=== PATIENT | male | born 1960 | race African-American/Black ===

== ENCOUNTER → 2017-04-04 | Outpatient (CLI) | payer MEDICARE, OTHER ==
--- NOTE | 2017-04-04 13:52 | US ---
EXAMINATION TYPE: US kidneys/renal and bladder DATE OF EXAM: 04/04/2017 COMPARISON: NONE CLINICAL HISTORY: N19 RENAL FAILURE. Renal failure EXAM MEASUREMENTS: Right Kidney: 10.9 x 5.1 x 5.1 cm Left Kidney: 9.8 x 5.0 x 6.2 cm Right Kidney: No evidence of hydro, possible hypoechoic lesion at lower pole= 2.2 x 2.5 x 2.6 cm Left Kidney: No evidence of hydro, smaller in size when compared to right Bladder: wnl Bilateral Jets seen: Only right jet visualized There is no evidence for hydronephrosis at this point in time. No nephrolithiasis is seen. The ur inary bladder is anechoic. IMPRESSION: 1. Hypoechoic lesion lower pole right kidney is nonspecific. Consider CT correlation.
== END | disposition home or self-care (01) ==
LOC: RADUSWWP 13:17
PROVIDERS: ATTEND Family Medicine
DX: N19 Unspecified kidney failure (principal)
CPT/HCPCS: 76770

== ENCOUNTER 2017-05-21 11:49 | Inpatient (IN) | payer MEDICARE, OTHER ==
[2017-05-21] MEDS ORDERED: NITROGLYCERIN OINT 1 INCH/GM PACKET TOPICAL STA (11:56)
[2017-05-21] MEDS ORDERED: IPRATROPIUM-ALBUTEROL 3 ML NEB INHALATION STA (11:56)
[2017-05-21] MEDS ORDERED: SODIUM CHLORIDE 0.9% 1,000 ML IV STA (11:56)
[2017-05-21] MEDS ORDERED: methylPREDNISolone SOD SUCCI 125 MG/2 ML VIAL IV STA (11:56)
[2017-05-21] MEDS ORDERED: FUROSEMIDE 10 MG/ML 4 ML VIAL IV STA (11:56)
--- NOTE | 2017-05-21 12:03 | ED ---
SOB HPI - General Stated Complaint: ANGEL Time Seen by Provider: 05/21/17 11:49 Source: patient, EMS, RN notes reviewed Mode of arrival: EMS - History of Present Illness Initial Comments: This is a 56-year-old male who does still smoke cigarettes he has a history of CHF heart disease diabetes who states she's had source of breath for the past couple days with has really bad today he does say he's had fevers and chills some sweats she's been coughing up some white and blood-tinged sputum. He did document much relief with home updrafts or one given by EMS. He is noted have a pulse ox in the low 80s. Also one episode of hypotension noted 84 systolic blood pressure. He denies any chest pain denies any peripheral edema. He does have exertional dyspnea. MD Complaint: shortness of breath, cough - Related Data Home Medications Medication Instructions Recorded Confirmed Albuterol Inhaler [Ventolin Hfa 2 puff INHALATION RT-Q6H PRN 01/05/16 05/21/17 Inhaler] Bumetanide [BUMEX] 2 mg PO BID 01/05/16 05/21/17 Gabapentin [Neurontin] 300 mg PO DAILY 01/05/16 05/21/17 Insulin Glargine [Lantus] 30 units SQ BID 01/05/16 05/21/17 Simvastatin [Zocor] 40 mg PO HS 01/05/16 05/21/17 amLODIPine [Norvasc] 10 mg PO DAILY 01/05/16 05/21/17 hydrALAZINE HCL [Apresoline] 25 mg PO TID 01/05/16 05/21/17 traZODone HCL [Desyrel] 200 mg PO HS 01/05/16 05/21/17 Allopurinol [Zyloprim] 100 mg PO DAILY 05/21/17 05/21/17 Carvedilol [Coreg*] 12.5 mg PO BID 05/21/17 05/21/17 Escitalopram [Lexapro] 10 mg PO DAILY 05/21/17 05/21/17 QUEtiapine [SEROquel] 200 mg PO HS 05/21/17 05/21/17 cloNIDine HCL [Catapres] 0.2 mg PO TID 05/21/17 05/21/17 Allergies Allergy/AdvReac Type Severity Reaction Status Date / Time Penicillins Allergy Unknown Verified 01/05/16 18:42 Review of Systems ROS Statement: Those systems with pertinent positive or pertinent negative responses have been documented in the HPI. ROS Other: All systems not noted in ROS Statement are negative. Past Medical History Past Medical History: Coronary Artery Disease (CAD), Chest Pain / Angina, COPD, Diabetes Mellitus, Hyperlipidemia, Hypertension History of Any Multi-Drug Resistant Organisms: None Reported Past Surgical History: AICD Past Anesthesia/Blood Transfusion Reactions: No Reported Reaction Type of Cardiac Device: AICD Device Placement Date:: 09/1999 Past Psychological History: Bipolar Smoking Status: Current every day smoker Past Alcohol Use History: None Reported General Exam - General Exam Comments Initial Comments: This a well-developed well-nourished awake alert oriented 3 male General appearance: alert, anxious, in distress Head exam: Present: atraumatic, normocephalic, normal inspection Eye exam: Present: normal appearance, PERRL, EOMI. Absent: scleral icterus, conjunctival injection, periorbital swelling ENT exam: Present: normal exam, mucous membranes moist Neck exam: Present: normal inspection. Absent: tenderness, meningismus, lymphadenopathy Respiratory exam: Present: wheezes, accessory muscle use, decreased breath sounds. Absent: respiratory distress, rales, rhonchi, stridor Cardiovascular Exam: Present: tachycardia. Absent: systolic murmur, diastolic murmur, rubs, gallop, clicks GI/Abdominal exam: Present: soft, normal bowel sounds. Absent: distended, tenderness, guarding, rebound, rigid Extremities exam: Present: normal inspection, full ROM, normal capillary refill. Absent: tenderness, pedal edema, joint swelling, calf tenderness Back exam: Present: normal inspection Neurological exam: Present: alert, oriented X3, CN II-XII intact Psychiatric exam: Present: normal affect, normal mood Skin exam: Present: warm, dry, intact, normal color. Absent: rash Course Vital Signs 05/21/17 05/21/17 05/21/17 12:05 12:09 12:20 Temperature 100.9 F H Pulse Rate 112 H 120 H Respiratory 30 H 26 H Rate Blood Pressure 164/108 O2 Sat by Pulse 91 L Oximetry 05/21/17 05/21/17 05/21/17 12:23 12:53 14:48 Temperature Pulse Rate 116 H 107 H 111 H Respiratory 24 25 H Rate Blood Pressure 168/109 186/100 O2 Sat by Pulse 95 96 Oximetry 05/21/17 05/21/17 15:45 16:03 Temperature Pulse Rate 102 H 102 H Respiratory 26 H 24 Rate Blood Pressure 173/102 173/100 O2 Sat by Pulse 95 93 L Oximetry - Reevaluation(s) Reevaluation #1: 05/21/17 16:07 I did discuss smoking cessation with the patient the conversation lasted 3.1 minutes. We did discuss the benefits of stopping. Reevaluation #2: 05/21/17 16:07 Reevaluation patient reveals he does feel improved with respect to his breathing is having no chest pain. Medical Decision Making - Medical Decision Making I did discuss the findings with the patient and with Dr. Lu the patient be admitted with cardiology and pulmonary consultation. Patient does have a fever and clinical evidence of pneumonitis. - Lab Data Result diagrams: 05/21/17 12:15 05/21/17 12:15 Lab Results 05/21/17 05/21/17 05/21/17 Range/Units 12:15 12:15 12:15 WBC 18.0 H (3.8-10.6) k/uL RBC 6.38 H (4.30-5.90) m/uL Hgb 19.0 H (13.0-17.5) gm/dL Hct 59.3 H (39.0-53.0) % MCV 93.0 (80.0-100.0) fL MCH 29.9 (25.0-35.0) pg MCHC 32.1 (31.0-37.0) g/dL RDW 16.3 H (11.5-15.5) % Plt Count 111 L (150-450) k/uL Neutrophils % 84 % Lymphocytes % 8 % Monocytes % 7 % Eosinophils % 1 % Basophils % 0 % Neutrophils # 15.0 H (1.3-7.7) k/uL Lymphocytes # 1.4 (1.0-4.8) k/uL Monocytes # 1.2 H (0-1.0) k/uL Eosinophils # 0.1 (0-0.7) k/uL Basophils # 0.1 (0-0.2) k/uL Hypochromasia Slight Anisocytosis Slight PT (9.0-12.0) sec INR (<1.2) APTT (22.0-30.0) sec Sodium 139 (137-145) mmol/L Potassium 4.3 (3.5-5.1) mmol/L Chloride 100 (98-107) mmol/L Carbon Dioxide 30 (22-30) mmol/L Anion Gap 9 mmol/L BUN 30 H (9-20) mg/dL Creatinine 1.72 H (0.66-1.25) mg/dL Est GFR (MDRD) Af Amer 50 (>60 ml/min/1.73 sqM) Est GFR (MDRD) Non-Af 41 (>60 ml/min/1.73 sqM) Glucose 252 H (74-99) mg/dL Plasma Lactic Acid Rodney (0.7-2.0) mmol/L Calcium 9.0 (8.4-10.2) mg/dL Magnesium 1.9 (1.6-2.3) mg/dL Total Bilirubin 0.9 (0.2-1.3) mg/dL AST 25 (17-59) U/L ALT 26 (21-72) U/L Alkaline Phosphatase 96 (38-126) U/L Total Creatine Kinase 242 H (55-170) U/L CK-MB (CK-2) 3.1 H* (0.0-2.4) ng/mL CK-MB (CK-2) Rel Index 1.3 Troponin I 0.153 H* (0.000-0.034) ng/mL NT-Pro-B Natriuret Pep pg/mL Total Protein 6.8 (6.3-8.2) g/dL Albumin 3.7 (3.5-5.0) g/dL Urine Color Urine Appearance (Clear) Urine pH (5.0-8.0) Ur Specific [place] (1.001-1.035) Urine Protein (Negative) Urine Glucose (UA) (Negative) Urine Ketones (Negative) Urine Blood (Negative) Urine Nitrite (Negative) Urine Bilirubin (Negative) Urine Urobilinogen (<2.0) mg/dL Ur Leukocyte Esterase (Negative) Urine RBC (0-5) /hpf Urine WBC (0-5) /hpf Ur Squamous Epith Cells (0-4) /hpf Hyaline Casts (0-2) /lpf Urine Mucus (None) /hpf 05/21/17 05/21/17 05/21/17 Range/Units 12:15 12:15 12:15 WBC (3.8-10.6) k/uL RBC (4.30-5.90) m/uL Hgb (13.0-17.5) gm/dL Hct (39.0-53.0) % MCV (80.0-100.0) fL MCH (25.0-35.0) pg MCHC (31.0-37.0) g/dL RDW (11.5-15.5) % Plt Count (150-450) k/uL Neutrophils % % Lymphocytes % % Monocytes % % Eosinophils % % Basophils % % Neutrophils # (1.3-7.7) k/uL Lymphocytes # (1.0-4.8) k/uL Monocytes # (0-1.0) k/uL Eosinophils # (0-0.7) k/uL Basophils # (0-0.2) k/uL Hypochromasia Anisocytosis PT 12.4 H (9.0-12.0) sec INR 1.3 H (<1.2) APTT 26.5 (22.0-30.0) sec Sodium (137-145) mmol/L Potassium (3.5-5.1) mmol/L Chloride (98-107) mmol/L Carbon Dioxide (22-30) mmol/L Anion Gap mmol/L BUN (9-20) mg/dL Creatinine (0.66-1.25) mg/dL Est GFR (MDRD) Af Amer (>60 ml/min/1.73 sqM) Est GFR (MDRD) Non-Af (>60 ml/min/1.73 sqM) Glucose (74-99) mg/dL Plasma Lactic Acid Rodney 2.0 (0.7-2.0) mmol/L Calcium (8.4-10.2) mg/dL Magnesium (1.6-2.3) mg/dL Total Bilirubin (0.2-1.3) mg/dL AST (17-59) U/L ALT (21-72) U/L Alkaline Phosphatase (38-126) U/L Total Creatine Kinase (55-170) U/L CK-MB (CK-2) (0.0-2.4) ng/mL CK-MB (CK-2) Rel Index Troponin I (0.000-0.034) ng/mL NT-Pro-B Natriuret Pep 5150 pg/mL Total Protein (6.3-8.2) g/dL Albumin (3.5-5.0) g/dL Urine Color Urine Appearance (Clear) Urine pH (5.0-8.0) Ur Specific [place] (1.001-1.035) Urine Protein (Negative) Urine Glucose (UA) (Negative) Urine Ketones (Negative) Urine Blood (Negative) Urine Nitrite (Negative) Urine Bilirubin (Negative) Urine Urobilinogen (<2.0) mg/dL Ur Leukocyte Esterase (Negative) Urine RBC (0-5) /hpf Urine WBC (0-5) /hpf Ur Squamous Epith Cells (0-4) /hpf Hyaline Casts (0-2) /lpf Urine Mucus (None) /hpf 05/21/17 Range/Units 13:50 WBC (3.8-10.6) k/uL RBC (4.30-5.90) m/uL Hgb (13.0-17.5) gm/dL Hct (39.0-53.0) % MCV (80.0-100.0) fL MCH (25.0-35.0) pg MCHC (31.0-37.0) g/dL RDW (11.5-15.5) % Plt Count (150-450) k/uL Neutrophils % % Lymphocytes % % Monocytes % % Eosinophils % % Basophils % % Neutrophils # (1.3-7.7) k/uL Lymphocytes # (1.0-4.8) k/uL Monocytes # (0-1.0) k/uL Eosinophils # (0-0.7) k/uL Basophils # (0-0.2) k/uL Hypochromasia Anisocytosis PT (9.0-12.0) sec INR (<1.2) APTT (22.0-30.0) sec Sodium (137-145) mmol/L Potassium (3.5-5.1) mmol/L Chloride (98-107) mmol/L Carbon Dioxide (22-30) mmol/L Anion Gap mmol/L BUN (9-20) mg/dL Creatinine (0.66-1.25) mg/dL Est GFR (MDRD) Af Amer (>60 ml/min/1.73 sqM) Est GFR (MDRD) Non-Af (>60 ml/min/1.73 sqM) Glucose (74-99) mg/dL Plasma Lactic Acid Rodney (0.7-2.0) mmol/L Calcium (8.4-10.2) mg/dL Magnesium (1.6-2.3) mg/dL Total Bilirubin (0.2-1.3) mg/dL AST (17-59) U/L ALT (21-72) U/L Alkaline Phosphatase (38-126) U/L Total Creatine Kinase (55-170) U/L CK-MB (CK-2) (0.0-2.4) ng/mL CK-MB (CK-2) Rel Index Troponin I (0.000-0.034) ng/mL NT-Pro-B Natriuret Pep pg/mL Total Protein (6.3-8.2) g/dL Albumin (3.5-5.0) g/dL Urine Color Yellow Urine Appearance Clear (Clear) Urine pH 5.5 (5.0-8.0) Ur Specific [place] 1.013 (1.001-1.035) Urine Protein 2+ H (Negative) Urine Glucose (UA) Negative (Negative) Urine Ketones Negative (Negative) Urine Blood Small H (Negative) Urine Nitrite Negative (Negative) Urine Bilirubin Negative (Negative) Urine Urobilinogen 3.0 (<2.0) mg/dL Ur Leukocyte Esterase Negative (Negative) Urine RBC 1 (0-5) /hpf Urine WBC 1 (0-5) /hpf Ur Squamous Epith Cells <1 (0-4) /hpf Hyaline Casts 7 H (0-2) /lpf Urine Mucus Rare H (None) /hpf - EKG Data -: EKG Interpreted by Me (EKG shows sinus tachycardia of 116. Interval 150 to QRS 122 QT/QTC of 354/) - Radiology Data Radiology results: report reviewed (I did review the imaging and report is evidence of mild pulmonary vascular congestion trace pleural effusions some cardiomegaly.), image reviewed Critical Care Time Critical Care Time: Yes Critical Care Time: 3 exam is a critical care time which includes initial presentation with monitoring of the EMS run and discussed with paramedics history physical labs x- rays reevaluation patient on multiple occasions. Discussion with the patient regarding findings discussed with the admitting service admission orders and documentation of the above. Disposition Clinical Impression: Congestive heart failure (CHF), Pneumonitis, Renal insufficiency syndrome, Febrile illness, acute, COPD exacerbation Disposition: ADMITTED IP TO THIS [facility] Condition: Serious Referrals: Jayson Lu MD [Primary Care Provider] - 1-2 days
[2017-05-21 12:48] LABS: Magnesium 1.9 mg/dL (1.6-2.3); Potassium 4.3 mmol/L (3.5-5.1); Total Bilirubin 0.9 mg/dL (0.2-1.3); Total Protein 6.8 g/dL (6.3-8.2)
[2017-05-21 12:49] LABS: Anisocytosis Slight; Basophils # (A) 0.1 k/uL (0-0.2); Basophils % (A) 0 %; CH 28.9; CHCM 31.3; Eosinophils # (A) 0.1 k/uL (0-0.7); Eosinophils % (A) 1 %; HCT 59.3 % (39.0-53.0); HDW 2.71; Hypochromasia Slight; Large Platelets Flag Slight; Luc # (Auto) 0.25; Luc % (Auto) 1; Lymphocytes # (A) 1.4 k/uL (1.0-4.8); Lymphocytes % (A) 8 %; MCH 29.9 pg (25.0-35.0); MCHC 32.1 g/dL (31.0-37.0); Mean Platelet Volume 10.2; Monocytes # (A) 1.2 k/uL (0-1.0); Monocytes % (A) 7 %; Neutrophils % (A) 84 %; RBC 6.38 m/uL (4.30-5.90); RDW 16.3 % (11.5-15.5); WBC (Perox) 18.69
[2017-05-21 13:28] LABS: Creatine Kinase MB 3.1 ng/mL (0.0-2.4)
[2017-05-21 13:29] LABS: Troponin I 0.153 ng/mL (0.000-0.034)
--- NOTE | 2017-05-21 13:32 | XR ---
EXAMINATION TYPE: XR chest 2V DATE OF EXAM: 05/21/2017 COMPARISON: NONE HISTORY: Difficulty breathing. History of COPD. TECHNIQUE: Frontal and lateral views of the chest are obtained. FINDINGS: Similar to the prior exam there is mild pulmonary vascular congestion, accentuated on the right by rotation. Trace pleural effusions blunt the costophrenic angles. Cardiomegaly and multilead left-sided cardiac device are again seen. No pneumothorax. Osseous structures appear intact. IMPRESSION: Mild pulmonary vascular congestion and trace pleural effusions in combination with cardi omegaly most likely relate to underlying decompensated congestive heart failure.
[2017-05-21 14:04] LABS: Partial Thromboplastin Time 26.5 sec (22.0-30.0)
[2017-05-21 14:09] LABS: INR 1.3 (<1.2); Prothrombin Time 12.4 sec (9.0-12.0)
[2017-05-21 14:15] LABS: Appearance,Urine Clear (Clear); Bilirubin,Urine Negative (Negative); Glucose,Urine (UA) Negative (Negative); Ketones,Urine Negative (Negative); Leukocyte Esterase,Urine Negative (Negative); Mucus,Urine Rare /hpf; Nitrite,Urine Negative (Negative); PH, Urine 5.5 (5.0-8.0); Particle Count 3887; Protein,Urine 2+ (Negative); RBC,Urine 1 /hpf (0-5); Specific Gravity,Urine 1.013 (1.001-1.035); Squamous Epithelial Cell,Urine <1 /hpf (0-4); UA Billing (MACRO vs. MICRO) MICRO; WBC,Urine 1 /hpf (0-5)
[2017-05-21] MEDS ORDERED: FUROSEMIDE 10 MG/ML 4 ML VIAL IV SCH (16:15)
[2017-05-21] MEDS ORDERED: HEPARIN SODIUM,PORCINE 5,000 UNIT/ML 1 ML VIAL IV ONE (16:19)
[2017-05-21] MEDS: SODIUM CHLORIDE 0.9% 1,000 ML IV SCH (17:02)
[2017-05-21] MEDS: HEPARIN SODIUM,PORCINE/D5W PMX 25,000 UNIT in DEXTROSE/WATER 1 500ML.BAG IV SCH (17:06)
[2017-05-21] MEDS: ACETAMINOPHEN TAB 500 MG TAB PO PRN (18:03)
[2017-05-21] MEDS ORDERED: IPRATROPIUM-ALBUTEROL 3 ML NEB INHALATION SCH (20:00)
[2017-05-21] MEDS: INSULIN LISPRO (humaLOG) 300 UNIT/3 ML VIAL SQ SCH ×2 (20:35→20:56)
[2017-05-21] MEDS: FUROSEMIDE 10 MG/ML 4 ML VIAL IV SCH (20:37)
[2017-05-21] MEDS: CARVEDILOL 12.5 MG TAB PO SCH (20:37)
[2017-05-21] MEDS: traZODone HCL 100 MG TAB PO SCH (20:38)
[2017-05-21] MEDS: ATORVASTATIN 20 MG TAB PO SCH (20:38)
[2017-05-21] MEDS: QUEtiapine 200 MG TAB PO SCH (20:38)
[2017-05-21 20:45] LABS: Glucose,Whole Blood 256 mg/dL (75-99)
[2017-05-21] MEDS: NITROGLYCERIN OINT 1 INCH/GM PACKET TOPICAL SCH ×2 (20:46→22:58)
[2017-05-21] MEDS ORDERED: NON-FORMULARY DRUG (Bumetanide [Bumex] 2 MG) PO SCH (21:00)
[2017-05-21] MEDS: INSULIN GLARGINE 100 UNIT/ML 10 ML VIAL SQ SCH (21:01)
[2017-05-21] MEDS ORDERED: IPRATROPIUM-ALBUTEROL 3 ML NEB INHALATION PRN (22:41)
[2017-05-21] MEDS: cloNIDine HCL 0.2 MG TAB PO SCH (22:57)
[2017-05-21] MEDS: hydrALAZINE HCL 25 MG TAB PO SCH (22:58)
[2017-05-22] MEDS: FUROSEMIDE 10 MG/ML 4 ML VIAL IV SCH ×3 (03:36→21:12)
[2017-05-22] MEDS: CARVEDILOL 12.5 MG TAB PO SCH ×2 (06:43→17:52)
[2017-05-22] MEDS: INSULIN LISPRO (humaLOG) 300 UNIT/3 ML VIAL SQ SCH ×4 (06:43→21:13)
[2017-05-22 06:51] LABS: Glucose,Whole Blood 178 mg/dL (75-99)
[2017-05-22 08:57] LABS: Hemoglobin A1C 7.5 % (4.2-6.1)
[2017-05-22] MEDS: IPRATROPIUM-ALBUTEROL 3 ML NEB INHALATION SCH ×4 (09:05→20:41)
[2017-05-22] MEDS: ALLOPURINOL 100 MG TAB PO SCH (09:47)
[2017-05-22] MEDS: cloNIDine HCL 0.2 MG TAB PO SCH ×3 (09:47→22:24)
[2017-05-22] MEDS: amLODIPine 10 MG TAB PO SCH (09:47)
[2017-05-22] MEDS: GABAPENTIN 300 MG CAP PO SCH (09:48)
[2017-05-22] MEDS: ESCITALOPRAM 10 MG TAB PO SCH (09:48)
[2017-05-22] MEDS: NITROGLYCERIN OINT 1 INCH/GM PACKET TOPICAL SCH ×4 (09:49→22:25)
[2017-05-22] MEDS: hydrALAZINE HCL 25 MG TAB PO SCH ×3 (09:49→22:23)
[2017-05-22] MEDS: ASPIRIN 325 MG TAB PO SCH (09:49)
[2017-05-22] MEDS: INSULIN GLARGINE 100 UNIT/ML 10 ML VIAL SQ SCH ×2 (09:57→21:13)
--- NOTE | 2017-05-22 10:53 | P.CRDCN ---
History of Present Illness Consult date: 05/22/17 Consult reason: congestive heart failure History of present illness: 56-year-old gentleman with history of cardiomyopathy with congestive heart failure status post AICD hypertension is to anemia was admitted to hospital with shortness of breath. Shortness of breath seems to be due to a combination of COPD exacerbation and acute exacerbation of chronic systolic heart failure. At the time of my evaluation this morning he is sleeping shortness of breath has improved has Review of Systems Constitutional: Denies chills. Denies fever. Eyes: Denies blurred vision. Denies pain. Ears, nose, mouth and throat: Denies headache. Denies sore throat. Cardiovascular: Denies chest pain. has shortness of breath. Respiratory: Denies cough. Gastrointestinal: Denies abdominal pain. Denies diarrhea. Denies nausea. Denies vomiting. Musculoskeletal: Denies myalgias.joint pains Integumentary: Denies pruritus. Denies rash. Neurological: Denies numbness. Denies weakness. Psychiatric: Denies anxiety. Denies depression. Endocrine: Denies fatigue. Denies weight change. Genitourinary: Denies burning, hematuria, frequency of urination. Hematological: No anemia or excess bleeding. Past Medical History Past Medical History: Coronary Artery Disease (CAD), Chest Pain / Angina, Heart Failure, COPD, Diabetes Mellitus, Hyperlipidemia, Hypertension, Myocardial Infarction ([place]), Sleep Apnea/CPAP/BIPAP Additional Past Medical History / Comment(s): MURMUR, "HEART SKIPS A BEAT", PAST ACID REFLUX, NEUROPATHY, BIPOLAR, Last Myocardial Infarction Date:: 2004 History of Any Multi-Drug Resistant Organisms: None Reported Past Surgical History: AICD, Heart Catheterization With Stent Past Anesthesia/Blood Transfusion Reactions: No Reported Reaction Date of Last Stent Placement:: 2004 Type of Cardiac Device: AICD Device Placement Date:: 09/2004 Smoking Status: Current every day smoker - Past Family History Father Family Medical History: Cancer Mother Family Medical History: Cancer Medications and Allergies Home Medications Medication Instructions Recorded Confirmed Type Albuterol Inhaler [Ventolin Hfa 2 puff INHALATION RT-Q6H PRN 01/05/16 05/21/17 History Inhaler] Bumetanide [BUMEX] 2 mg PO BID 01/05/16 05/21/17 History Gabapentin [Neurontin] 300 mg PO DAILY 01/05/16 05/21/17 History Insulin Glargine [Lantus] 30 units SQ BID 01/05/16 05/21/17 History Simvastatin [Zocor] 40 mg PO HS 01/05/16 05/21/17 History amLODIPine [Norvasc] 10 mg PO DAILY 01/05/16 05/21/17 History hydrALAZINE HCL [Apresoline] 25 mg PO TID 01/05/16 05/21/17 History traZODone HCL [Desyrel] 200 mg PO HS 01/05/16 05/21/17 History Allopurinol [Zyloprim] 100 mg PO DAILY 05/21/17 05/21/17 History Carvedilol [Coreg*] 12.5 mg PO BID 05/21/17 05/21/17 History Escitalopram [Lexapro] 10 mg PO DAILY 05/21/17 05/21/17 History QUEtiapine [SEROquel] 200 mg PO HS 05/21/17 05/21/17 History cloNIDine HCL [Catapres] 0.2 mg PO TID 05/21/17 05/21/17 History Allergies Allergy/AdvReac Type Severity Reaction Status Date / Time Penicillins Allergy Unknown Verified 01/05/16 18:42 Physical Exam Vitals: Vital Signs Temp Pulse Pulse Resp BP BP Pulse Ox 05/22/17 09:17 85 16 05/22/17 09:05 85 16 97 05/22/17 04:00 97.2 F L 87 22 144/95 94 L 05/22/17 00:00 97.0 F L 80 24 133/90 94 L 05/21/17 20:46 100 05/21/17 20:00 97.5 F L 95 24 161/100 94 L 05/21/17 18:25 99.9 F H 102 H 28 H 187/113 90 L 05/21/17 17:58 101.3 F H 100 22 180/95 95 05/21/17 17:06 93 22 177/89 96 05/21/17 16:03 102 H 24 173/100 93 L 05/21/17 15:45 102 H 26 H 173/102 95 05/21/17 14:48 111 H 25 H 186/100 96 05/21/17 12:53 107 H 24 168/109 95 05/21/17 12:23 116 H 05/21/17 12:20 26 H 05/21/17 12:09 100.9 F H 120 H 30 H 164/108 91 L 05/21/17 12:05 112 H Intake and Output 05/21/17 05/22/17 05/22/17 22:59 06:59 14:59 Intake Total 624.365 Output Total 500 400 Balance 124.365 -400 Intake: IV 160 Heparin Sodium,Porcine/ 160 D5w Pmx 25,000 unit In Dextrose/Water 1 500ml. bag @ 7.37 UNITS/KG/HR 19 .98 mls/hr IV .Q24H GARIMA Rx#:[id number] Intake, IV Titration 464.365 Amount Heparin Sodium,Porcine/ 304.365 D5w Pmx 25,000 unit In Dextrose/Water 1 500ml. bag @ 7.37 UNITS/KG/HR 19 .98 mls/hr IV .Q24H GARIMA Rx#:[id number] Sodium Chloride 0.9% 1, 160 000 ml @ 20 mls/hr IV . Q24H GARIMA Rx#:[id number] Output: Urine 500 400 Other: Voiding Method Urinal Urinal # Voids 0 0 Weight 135.1 kg General: The patient is awake and alert, in no distress, and does not appear acutely ill. Skin: Skin is warm and dry and no rashes or lesions are noted. Eye: Pupils are equal, round and reactive to light, extra-ocular movements are intact; there is normal conjunctiva bilaterally. Ears, nose, mouth and throat: There are moist mucous membranes and no oral lesions. Neck: The neck is supple, there is no tenderness or JVD. Cardiovascular: There is a regular rate and rhythm. No murmur, rub or gallop is appreciated. Respiratory: Lungs are clear to auscultation, respirations are non-labored, breath sounds are equal. Gastrointestinal: Soft, non-distended, non-tender abdomen without masses or organomegaly noted. There is no rebound or guarding present. Bowel sounds are unremarkable. Back: There is no tenderness to palpation in the midline. There is no obvious deformity. Musculoskeletal: Normal ROM, no tenderness, There is no pedal edema. There is no calf tenderness or swelling. Extremities: 1+ edema Vascular: Femoral pulse is normal. Posterior tibial pulses are normal .Dorsalis pedis is palpable. Neurological: CN II-XII intact. There are no obvious motor or sensory deficits. Speech is normal. Psychiatric: Cooperative, appropriate mood & affect, normal judgment. Results 05/21/17 12:15 05/21/17 12:15 Cardiac Enzymes 05/21/17 05/21/17 Range/Units 12:15 12:15 AST 25 (17-59) U/L CK-MB (CK-2) 3.1 H* (0.0-2.4) ng/mL Troponin I 0.153 H* (0.000-0.034) ng/mL Coagulation 05/21/17 05/21/17 05/22/17 Range/Units 12:15 22:40 04:58 PT 12.4 H (9.0-12.0) sec APTT 26.5 26.0 31.5 H (22.0-30.0) sec CBC 05/21/17 Range/Units 12:15 WBC 18.0 H (3.8-10.6) k/uL RBC 6.38 H (4.30-5.90) m/uL Hgb 19.0 H (13.0-17.5) gm/dL Hct 59.3 H (39.0-53.0) % Plt Count 111 L (150-450) k/uL Comprehensive Metabolic Panel 05/21/17 Range/Units 12:15 Sodium 139 (137-145) mmol/L Potassium 4.3 (3.5-5.1) mmol/L Chloride 100 (98-107) mmol/L Carbon Dioxide 30 (22-30) mmol/L BUN 30 H (9-20) mg/dL Creatinine 1.72 H (0.66-1.25) mg/dL Glucose 252 H (74-99) mg/dL Calcium 9.0 (8.4-10.2) mg/dL AST 25 (17-59) U/L ALT 26 (21-72) U/L Alkaline Phosphatase 96 (38-126) U/L Total Protein 6.8 (6.3-8.2) g/dL Albumin 3.7 (3.5-5.0) g/dL Current Medications Generic Name Dose Route Start Last Admin Trade Name Freq PRN Reason Stop Dose Admin Acetaminophen 1,000 mg 05/21/17 17:57 05/21/17 18:03 Tylenol Tab PO 1,000 mg Q6HR PRN Administration Fever and/ or Pain Albuterol/Ipratropium 3 ml 05/22/17 08:00 05/22/17 09:05 Duoneb 0.5 Mg-3 Mg/3 Ml Soln INHALATION 3 ml RT-QID GARIMA Administration Albuterol/Ipratropium 3 ml 05/21/17 22:41 Duoneb 0.5 Mg-3 Mg/3 Ml Soln INHALATION RT-Q2H PRN Shortness Of Breath Or Wheezing Allopurinol 100 mg 05/22/17 09:00 05/22/17 09:47 Zyloprim PO 100 mg DAILY GARIMA Administration Amlodipine Besylate 10 mg 05/22/17 09:00 05/22/17 09:47 Norvasc PO 10 mg DAILY GARIMA Administration Aspirin 325 mg 05/22/17 12:00 05/22/17 09:49 Aspirin PO 325 mg DAILY GARIMA Administration Atorvastatin Calcium 20 mg 05/21/17 21:00 05/21/17 20:38 Lipitor PO 20 mg HS GARIMA Administration Carvedilol 12.5 mg 05/21/17 18:00 05/22/17 06:43 Coreg PO 12.5 mg BID-W/MEALS GARIMA Administration Clonidine 0.2 mg 05/21/17 22:00 05/22/17 09:47 Catapres PO 0.2 mg TID GARIMA Administration Escitalopram Oxalate 10 mg 05/22/17 09:00 05/22/17 09:48 Lexapro PO 10 mg DAILY GARIMA Administration Furosemide 40 mg 05/21/17 20:00 05/22/17 03:36 Lasix IV 40 mg Q8H GARIMA Administration Gabapentin 300 mg 05/22/17 09:00 05/22/17 09:48 Neurontin PO 300 mg DAILY GARIMA Administration Hydralazine HCl 25 mg 05/21/17 22:00 05/22/17 09:49 Apresoline PO 25 mg TID GARIMA Administration Sodium Chloride 1,000 mls @ 20 mls/hr 05/21/17 11:56 05/21/17 12:53 Saline 0.9% IV 05/22/17 11:55 20 mls/hr .Q24H STA Administration Heparin Sodium/Dextrose 25,000 500 mls @ 19.98 mls/hr 05/21/17 16:30 06:06 unit/ IV Solution IV 13 units/kg/hr .Q24H GARIMA 35.25 mls/hr Protocol Titration 7.37 UNITS/KG/HR Sodium Chloride 1,000 mls @ 20 mls/hr 05/21/17 16:15 05/21/17 17:02 Saline 0.9% IV Not Given .Q24H GARIMA Insulin Glargine 30 unit 05/21/17 21:00 05/22/17 09:57 Lantus SQ 30 unit BID GARIMA Administration Insulin Human Lispro 0 unit 05/21/17 17:30 05/22/17 06:43 Humalog SQ 3 unit ACHS GARIMA Administration Protocol Nitroglycerin 1 inch 05/21/17 18:00 05/22/17 09:49 Nitro-Bid Oint TOPICAL 1 inch QID GARIMA Administration Quetiapine Fumarate 200 mg 05/21/17 21:00 05/21/17 20:38 Seroquel PO 200 mg HS GARIMA Administration Trazodone HCl 200 mg 05/21/17 21:00 05/21/17 20:38 Desyrel PO 200 mg HS GARIMA Administration Intake and Output 05/21/17 05/22/17 05/22/17 22:59 06:59 14:59 Intake Total 624.365 Output Total 500 400 Balance 124.365 -400 Intake: IV 160 Heparin Sodium,Porcine/ 160 D5w Pmx 25,000 unit In Dextrose/Water 1 500ml. bag @ 7.37 UNITS/KG/HR 19 .98 mls/hr IV .Q24H GARIMA Rx#:[id number] Intake, IV Titration 464.365 Amount Heparin Sodium,Porcine/ 304.365 D5w Pmx 25,000 unit In Dextrose/Water 1 500ml. bag @ 7.37 UNITS/KG/HR 19 .98 mls/hr IV .Q24H GARIMA Rx#:[id number] Sodium Chloride 0.9% 1, 160 000 ml @ 20 mls/hr IV . Q24H GARIMA Rx#:[id number] Output: Urine 500 400 Other: Voiding Method Urinal Urinal # Voids 0 0 Weight 135.1 kg 05/21/17 12:15 05/21/17 12:15 EKG Interpretations (text) Sinus tachycardia with changes of left ventricular hypertrophy Assessment and Plan Plan: Acute exacerbation of chronic systolic heart failure History of AICD History of coronary artery disease Patient is on IV Lasix which I'm going to continue. I will obtain a 2-D echo to document her LV function. BNP is elevated
[2017-05-22] MEDS: HEPARIN SODIUM,PORCINE/D5W PMX 25,000 UNIT in DEXTROSE/WATER 1 500ML.BAG IV SCH ×2 (12:43→23:26)
--- NOTE | 2017-05-22 14:19 | ECHOF ---
Referral Reason:chf MEASUREMENTS -------- HEIGHT: 188.0 cm WEIGHT: 134.7 kg BP: 144/95 RVIDd: 3.7 cm (< 3.3) IVSd: 1.7 cm (0.6 - 1.1) LVIDd: 6.1 cm (3.9 - 5.3) LVPWd: 1.8 cm (0.6 - 1.1) IVSs: 2.3 cm LVIDs: 3.4 cm LVPWs: 2.4 cm LA Diam: 5.3 cm (2.7 - 3.8) LAESV Index (A-L): 28.53 ml/m Ao Diam: 3.3 cm (2.0 - 3.7) AV Cusp: 2.7 cm (1.5 - 2.6) MV EXCURSION: 23.080 mm (> 18.000) MV EF SLOPE: 67 mm/s (70 - 150) EPSS: 1.3 cm MV E Rogers: 0.55 m/s MV DecT: 345 ms MV A Rogers: 0.77 m/s MV E/A Ratio: 0.72 RAP: 5.00 mmHg RVSP: 47.47 mmHg FINDINGS -------- Sinus rhythm. This was a technically difficult study with suboptimal apical views. The left ventricle is mildly dilated. There is severe concentric left ventricular hypertrophy. Overall left ventricular systolic function is normal with, an EF between 55 - 60 %. The right ventricle is mildly enlarged. The left atrium is markedly dilated. The right atrium is normal in size. 1.5mg of Definity was utilized for enhancement of images There is mild aortic valve sclerosis. Mild mitral annular calcification present. Mild tricuspid regurgitation present. There is mild pulmonary hypertension. Trace/mild (physiologic) pulmonic regurgitation. The aortic root size is normal. The inferior vena cava is mildly dilated. There is no pericardial effusion. CONCLUSIONS -------- 1. Sinus rhythm. 2. There is mild aortic valve sclerosis. 3. Mild mitral annular calcification present. 4. Mild tricuspid regurgitation present. 5. There is mild pulmonary hypertension. 6. Trace/mild (physiologic) pulmonic regurgitation. 7. The aortic root size is normal. 8. The inferior vena cava is mildly dilated. 9. There is no pericardial effusion. 10. This was a technically difficult study with suboptimal apical views. 11. The left ventricle is mildly dilated. 12. There is severe concentric left ventricular hypertrophy. 13. Overall left ventricular systolic function is normal with, an EF between 55 - 60 %. 14. The right ventricle is mildly enlarged. 15. The left atrium is markedly dilated. 16. The right atrium is normal in size. 17. 1.5mg of Definity was utilized for enhancement of images FINISH OFF OPERATOR: Melissa Wright RDCS
[2017-05-22 15:54] LABS: Glucose,Whole Blood 134 mg/dL (75-99)
[2017-05-22 17:08] LABS: Glucose,Whole Blood 131 mg/dL (75-99)
[2017-05-22] MEDS: SODIUM CHLORIDE 0.9% 1,000 ML IV SCH (17:52)
--- NOTE | 2017-05-22 21:09 | CONS ---
CONSULTATION DATE OF SERVICE: 05/22/2017. REASON FOR CONSULTATION: Dyspnea. This is a very pleasant 56-year-old gentleman who follows with Dr. Lu as his primary care physician. He has a history of coronary artery disease, severe ischemic cardiomyopathy with an estimated ejection fraction less than 20%, angina, diabetes mellitus, hyperlipidemia, hypertension and chronic and ongoing tobacco dependence. He also is status post AICD placement. He presented to the emergency room yesterday with complaints of increasing shortness of breath, cough and congestion. His cough was productive of white blood-tinged sputum. He was given updrafts in the EMS and did have a pulse ox in the low 80s. He was also hypotensive in the 80s systolically. His chest x-ray revealed evidence of mild pulmonary vascular congestion and trace pleural effusions along with cardiomegaly; no areas of infiltrate or consolidation. White count was 18.0, hemoglobin 19.0, platelet count 111,000, BUN 30, creatinine 1.72, troponin 0.153, proBNP 5150. The patient is seen today in consultation in the selective care unit. He is awake and alert, in no acute distress. He denies any worsening shortness of breath. He has a loose nonproductive cough. No chills or night sweats. He has been afebrile. He is requiring 8 liters of high-flow nasal cannula to maintain oxygen saturations in the 90s. He has been hemodynamically stable. PAST MEDICAL HISTORY: Past medical history includes: 1. Coronary artery disease. 2. Severe ischemic cardiomyopathy with estimated ejection fraction less than 20%. 3. Status post AICD placement. 4. Chronic obstructive pulmonary disease. 5. Chronic and ongoing tobacco dependence. 6. Diabetes mellitus. 7. Hypertension. 8. Hyperlipidemia. SURGICAL HISTORY: AICD. SOCIAL HISTORY: The patient has chronic and ongoing tobacco dependence. Denies alcohol use or illicit drug use. ALLERGIES: PENICILLIN. HOME MEDICATIONS: 1. Ventolin HFA inhaler 2 inhalations q.6 hours p.r.n. 2. Bumex 2 mg b.i.d. 3. Neurontin 300 mg daily. 4. Lantus 30 units subcutaneously b.i.d. 5. Zocor 40 mg at bedtime. 6. Norvasc 10 mg daily. 7. Apresoline 25 mg t.i.d. 8. Desyrel 200 mg at bedtime. 9. Zyloprim 100 mg daily. 10.Coreg 12.5 mg b.i.d. 11.Lexapro 10 mg daily. 12.Seroquel 200 mg at bedtime. 13.Catapres 0.2 mg p.o. t.i.d. REVIEW OF SYSTEMS: Fourteen-point review of system was conducted; all negative other than mentioned in the HPI. PHYSICAL EXAM: He is morbidly obese. Alert and oriented. VITAL SIGNS: Blood pressure 154/100, heart rate 105, respirations 18, temperature 97.0. He is 90% oxygen saturation on 6 L high-flow nasal cannula. HEAD: Normocephalic. There is crowding of the posterior pharynx. NECK: Short, supple. Trachea midline. His lungs are clear anteriorly. There are crackles in the posterior bases, diminished. HEART: Regular. S1, S2, tachycardic. ABDOMEN: Obese soft, nontender. Bowel sounds are present. There is trace peripheral edema. No clubbing. Peripheral pulses are intact. INVESTIGATIONS: Chest x-ray as above. Lab results reveal white count 18.0, hemoglobin 19.0, platelet count 111,000. INR 1.3. Sodium 139, potassium 4.3, chloride 100, CO2 30. BUN 30, creatinine 1.72. CK-MB 3.1. Troponin 0.153. ProBNP 5150. His medications are reviewed. IMPRESSION: 1. Acute exacerbation of chronic systolic congestive heart failure in a patient with a known ejection fraction less than 20%. 2. Cardiomyopathy, status post AICD placement. 3. Chronic and ongoing tobacco dependence with suspected chronic obstructive pulmonary disease. 4. Morbid obesity with some component of obesity/hypoventilation syndrome. 5. Diabetes mellitus, type 2. 6. Hyperlipidemia. 7. Hypertension. 8. Bipolar disorder. PLAN: The patient was seen and evaluated by Dr. Vital. Chest x-ray report and labs were reviewed. We will go ahead and treat him for acute exacerbation of his congestive heart failure. He is on Lasix 40 mg IV q.8 hours. We will continue with bronchodilators. He remains on a heparin drip for now. Cardiology has been consulted. He would benefit from outpatient workup in our office, including full pulmonary function testing to evaluate the severity of his COPD. He may also benefit from a sleep study. In the interim, we will continue to follow and make further recommendations based on his clinical status. Of note, he is educated regarding the importance of complete smoking cessation. A Nicoderm patch will be applied. MMLOREL / IJN: [id number] /
[2017-05-22] MEDS: QUEtiapine 200 MG TAB PO SCH (21:13)
[2017-05-22] MEDS: traZODone HCL 100 MG TAB PO SCH (21:13)
[2017-05-22] MEDS: ATORVASTATIN 20 MG TAB PO SCH (21:13)
[2017-05-22 21:20] LABS: Glucose,Whole Blood 120 mg/dL (75-99)
[2017-05-23] MEDS: FUROSEMIDE 10 MG/ML 4 ML VIAL IV SCH ×3 (04:26→19:54)
[2017-05-23 06:31] LABS: Glucose,Whole Blood 114 mg/dL (75-99)
[2017-05-23 06:34] LABS: Partial Thromboplastin Time 64.7 sec (22.0-30.0)
[2017-05-23] MEDS: INSULIN LISPRO (humaLOG) 300 UNIT/3 ML VIAL SQ SCH ×5 (06:36→21:19)
[2017-05-23 06:37] LABS: Anisocytosis Slight; Basophils # (A) 0.1 k/uL (0-0.2); Basophils % (A) 1 %; CH 28.3; CHCM 29.8; Calcium 8.5 mg/dL (8.4-10.2); Eosinophils # (A) 0.1 k/uL (0-0.7); Eosinophils % (A) 1 %; HCT 56.3 % (39.0-53.0); HDW 2.68; HGB 17.3 gm/dL (13.0-17.5); Hypochromasia Marked; Large Platelets Flag Slight; Luc # (Auto) 0.32; Luc % (Auto) 3; Lymphocytes % (A) 16 %; MCH 29.4 pg (25.0-35.0); MCHC 30.7 g/dL (31.0-37.0); MCV 95.6 fL (80.0-100.0); Mean Platelet Volume 10.3; Monocytes # (A) 1.1 k/uL (0-1.0); Monocytes % (A) 9 %; Neutrophils # (A) 9.2 k/uL (1.3-7.7); Neutrophils % (A) 72 %; Potassium 4.2 mmol/L (3.5-5.1); RBC 5.88 m/uL (4.30-5.90); RDW 16.6 % (11.5-15.5); Total Bilirubin 0.5 mg/dL (0.2-1.3); Total Protein 5.8 g/dL (6.3-8.2); WBC 12.8 k/uL (3.8-10.6); WBC (Perox) 12.13
[2017-05-23] MEDS: CARVEDILOL 12.5 MG TAB PO SCH ×2 (06:50→16:39)
[2017-05-23] MEDS: IPRATROPIUM-ALBUTEROL 3 ML NEB INHALATION SCH ×4 (08:29→20:35)
[2017-05-23] MEDS: GABAPENTIN 300 MG CAP PO SCH (08:33)
[2017-05-23] MEDS: cloNIDine HCL 0.2 MG TAB PO SCH ×3 (08:33→21:05)
[2017-05-23] MEDS: ASPIRIN 325 MG TAB PO SCH (08:33)
[2017-05-23] MEDS: ESCITALOPRAM 10 MG TAB PO SCH (08:33)
[2017-05-23] MEDS: amLODIPine 10 MG TAB PO SCH (08:33)
[2017-05-23] MEDS: ALLOPURINOL 100 MG TAB PO SCH (08:33)
[2017-05-23] MEDS: NITROGLYCERIN OINT 1 INCH/GM PACKET TOPICAL SCH ×4 (08:34→19:54)
[2017-05-23] MEDS: INSULIN GLARGINE 100 UNIT/ML 10 ML VIAL SQ SCH ×2 (08:34→21:05)
[2017-05-23] MEDS: hydrALAZINE HCL 25 MG TAB PO SCH ×3 (08:34→21:05)
--- NOTE | 2017-05-23 10:48 | P.PN ---
Subjective Principal diagnosis: Congestive heart failure This is a 56-year-old -[place] gentleman with known history of coronary artery disease and prior PCI, history of ischemic cardiomyopathy with prior AICD implant, diabetes, hypertension, hyperlipidemia, nicotine dependence, who presented to the hospital with symptoms of progressively worsening shortness of breath. He is currently on treatment for congestive cardiac failure. His weight today is down 1 kg. Echocardiogram with Doppler study was performed which revealed an ejection fraction of 55-60%. Patient seen and examined this morning, breathing improving. Blood pressure this morning 134/84, heart rate in the 80s. 95% on 6 L. Blood cell count 12.8, hemoglobin 17.3, platelet count 93. D-dimer 0.5. Potassium 4.2, BUN 42, creatinine 1.8. Discontinue the patient's Nitropaste. Disocontinue IV heparin. Continue IV Lasix for 24 hours. Objective - Vital Signs Vital signs: Vital Signs Temp 97.1 F L 05/23/17 08:00 Pulse 80 05/23/17 08:43 Resp 16 05/23/17 08:00 BP 135/84 05/23/17 08:00 Pulse Ox 95 05/23/17 08:00 Intake & Output 05/22/17 05/23/17 05/23/17 18:59 06:59 18:59 Intake Total 435.635 808.996 180 Output Total 1600 100 450 Balance -1164.365 708.996 -270 Weight 135.1 kg 134.8 kg Intake: IV 344 Heparin Sodium,Porcine/ 344 D5w Pmx 25,000 unit In Dextrose/Water 1 500ml. bag @ 7.37 UNITS/KG/HR 19 .98 mls/hr IV .Q24H [facility]IMA Rx#:[id number] Intake, IV Titration 195.635 464.996 Amount Heparin Sodium,Porcine/ 195.635 464.996 D5w Pmx 25,000 unit In Dextrose/Water 1 500ml. bag @ 7.37 UNITS/KG/HR 19 .98 mls/hr IV .Q24H [facility] Rx#:[id number] Oral 240 180 Output: Urine 1600 100 450 Other: Voiding Method Urinal Urinal - Exam PHYSICAL EXAMINATION: HEENT: Head is atraumatic, normocephalic. Pupils equal, round. Neck is supple. There is no elevated jugular venous pressure. HEART EXAMINATION: Heart S1, S2 normal. No murmur or gallop heard. CHEST EXAMINATION: Lungs reveal fine crackles to bilateral bases. ABDOMEN: Soft, nontender. Bowel sounds are heard. No organomegaly noted. EXTREMITIES: 2+ peripheral pulses with trace evidence of peripheral edema and no calf tenderness noted. NEUROLOGIC patient is awake, alert and oriented -3. . - Labs CBC & Chem 7: 05/23/17 05:50 05/23/17 05:50 Labs: Abnormal Lab Results - Last 24 Hours (Table) 05/22/17 05/22/17 05/22/17 Range/Units 11:02 11:49 16:48 WBC (3.8-10.6) k/uL Hct (39.0-53.0) % MCHC (31.0-37.0) g/dL RDW (11.5-15.5) % Plt Count (150-450) k/uL Neutrophils # (1.3-7.7) k/uL Monocytes # (0-1.0) k/uL APTT 37.0 H (22.0-30.0) sec BUN (9-20) mg/dL Creatinine (0.66-1.25) mg/dL Glucose (74-99) mg/dL POC Glucose (mg/dL) 134 H 131 H (75-99) mg/dL Total Protein (6.3-8.2) g/dL Albumin (3.5-5.0) g/dL 05/22/17 05/22/17 05/23/17 Range/Units 18:35 20:59 05:50 WBC 12.8 H (3.8-10.6) k/uL Hct 56.3 H (39.0-53.0) % MCHC 30.7 L (31.0-37.0) g/dL RDW 16.6 H (11.5-15.5) % Plt Count 93 L (150-450) k/uL Neutrophils # 9.2 H (1.3-7.7) k/uL Monocytes # 1.1 H (0-1.0) k/uL APTT 60.4 H (22.0-30.0) sec BUN (9-20) mg/dL Creatinine (0.66-1.25) mg/dL Glucose (74-99) mg/dL POC Glucose (mg/dL) 120 H (75-99) mg/dL Total Protein (6.3-8.2) g/dL Albumin (3.5-5.0) g/dL 05/23/17 05/23/17 05/23/17 Range/Units 05:50 05:50 06:28 WBC (3.8-10.6) k/uL Hct (39.0-53.0) % MCHC (31.0-37.0) g/dL RDW (11.5-15.5) % Plt Count (150-450) k/uL Neutrophils # (1.3-7.7) k/uL Monocytes # (0-1.0) k/uL APTT 64.7 H (22.0-30.0) sec BUN 42 H (9-20) mg/dL Creatinine 1.80 H (0.66-1.25) mg/dL Glucose 117 H (74-99) mg/dL POC Glucose (mg/dL) 114 H (75-99) mg/dL Total Protein 5.8 L (6.3-8.2) g/dL Albumin 3.0 L (3.5-5.0) g/dL Microbiology - Last 24 Hours (Table) 05/21/17 12:15 Blood Culture - Preliminary Blood No Growth after 24 hours Assessment and Plan (1) Renal insufficiency syndrome Status: Acute (2) AICD (automatic cardioverter/defibrillator) present Status: Acute (3) CAD (coronary artery disease) Status: Acute (4) COPD exacerbation Status: Acute (5) Diabetes Status: Acute (6) HTN (hypertension) Status: Acute (7) Ischemic cardiomyopathy Status: Acute (8) Nicotine dependence Status: Acute (9) Systolic CHF, acute on chronic Status: Acute Plan: From cardiology's perspective, we will recommend to continue current dose of IV Lasix. Discontinue Nitropaste and IV heparin. Monitor intake and output along with daily weights. Check lytes BUN and creatinine in the morning. DNP note has been reviewed, I agree with a documented findings and plan of care. Patient was seen and examined.
[2017-05-23] MEDS: HEPARIN SODIUM,PORCINE/D5W PMX 25,000 UNIT in DEXTROSE/WATER 1 500ML.BAG IV SCH (11:57)
[2017-05-23 11:59] VITALS: BMI 38.1
--- NOTE | 2017-05-23 12:37 | HP ---
HISTORY AND PHYSICAL CHIEF COMPLAINT: Shortness of breath, fever and congestive heart failure. HISTORY OF PRESENT ILLNESS: This is the first known admission under my care for this 56-year-old, male. He has a long-standing history of COPD, hypertension, depression. He has type 2 diabetes. He presented to the emergency room with shortness of breath and was admitted with a diagnosis of likely congestive heart failure and possible pneumonitis as well as exacerbated COPD. REVIEW OF SYSTEMS: He has had no headaches, confusion, neurologic deficits, changes in vision or hearing, cough, hemoptysis, sputum production, chest pain, palpitations, orthopnea, PND, abdominal pain, nausea, vomiting, hematemesis, melena, hematochezia, jaundice, hematuria, frequency, urgency, etc. Past medical history, family history and personal and social histories reveal he is allergic to PENICILLIN. MEDICATIONS: His medications include: 1. Bumetanide 2 mg twice a day. 2. Amlodipine 10 mg once a day. 3. Gabapentin 300 mg once a day. 4. Lantus 30 units twice a day. 5. Vitamin D3, 50,000 units a month. 6. 7.5 q.4 p.r.n. 7. Hydralazine 100 mg t.i.d. 8. Seroquel 50 mg at bedtime. 9. Lexapro 10 mg once a day. 10.Trazodone 100 mg 2 at night. 11.Carvedilol 12.5 mg b.i.d. 12.Clonidine 0.2 mg t.i.d. 13.Updraft with albuterol. 14.Zocor 40 mg once a day. He does have a pacemaker. He continued to smoke, but does not drink. PHYSICAL EXAM: Blood pressure 110/76 with a pulse of 98, respirations of 39 and he is afebrile. BMI was 41.8. GENERAL: He appeared to be short of breath. Skin was dry. Head, ears, eyes, nose, mouth and throat were normal. Neck veins were not distended. Thyroid is not enlarged. Chest is clear except for very poor breath sounds. There were occasional rhonchi and occasional rales at the bases. Cardiac exam demonstrated normal sinus rhythm and no murmurs or extra sounds. The abdomen was protuberant, soft and nontender. Extremities are normal. Neurologically, he is intact. He was admitted to the hospital with DIAGNOSES: 1. Congestive heart failure. 2. Chronic obstructive pulmonary disease. 3. Insulin-dependent diabetes mellitus. 4. Obesity. 5. Probable pneumonitis. PLAN: 1. Bed rest. 2. IV fluids. 3. Updrafts as well as antibiotics. 4. Cardiology consult due to elevated troponin. 5. Diuresis (BNP 5150). MMODL / IJN: [id number] /
--- NOTE | 2017-05-23 13:08 | P.PN ---
Subjective Progress note dated 05/23/2017 This is a 56-year-old male with history of vomiting chronic systolic CHF with acute exacerbation. The patient has an ejection fraction of less than 20%. Because of his severe cardiomyopathy, he status post AICD. Also suspected have underlying COPD morbid obesity diabetes hyperlipidemia hypertension and bipolar disorder. The patient seemed to be doing better. States that he is breathing better. Feels better. Less shortness of breath. No chest pain no chest discomfort. No nausea vomiting or diarrhea. No fever no chills. Not coughing up any phlegm. He will need outpatient evaluation for his underlying COPD. Objective - Vital Signs Vital signs: Vital Signs Temp 97.1 F L 05/23/17 08:00 Pulse 80 05/23/17 12:06 Resp 16 05/23/17 12:00 BP 112/70 05/23/17 12:00 Pulse Ox 94 L 05/23/17 12:00 Intake & Output 05/22/17 05/23/17 05/23/17 18:59 06:59 18:59 Intake Total 435.635 808.996 680 Output Total 1600 100 450 Balance -1164.365 708.996 230 Weight 135.1 kg 134.8 kg Intake: IV 344 Heparin Sodium,Porcine/ 344 D5w Pmx 25,000 unit In Dextrose/Water 1 500ml. bag @ 7.37 UNITS/KG/HR 19 .98 mls/hr IV .Q24H [facility] Rx#:[id number] Intake, IV Titration 195.635 464.996 500 Amount Heparin Sodium,Porcine/ 195.635 464.996 500 D5w Pmx 25,000 unit In Dextrose/Water 1 500ml. bag @ 7.37 UNITS/KG/HR 19 .98 mls/hr IV .Q24H [facility] Rx#:[id number] Oral 240 180 Output: Urine 1600 100 450 Other: Voiding Method Urinal Urinal Urinal - Exam No acute distress, he was actually sleeping in the room. No respiratory distress. HEENT examination is grossly unremarkable. Mucous membranes are moist. No oral lesions. Neck supple. Full range of motion. No adenopathy or thyromegaly. Neck veins are flat. Cardiovascular examination reveals regular rhythm rate. S1-S2 normal. No distinct murmurs noted. Lungs reveal some bibasilar crackles. Breath sounds are diminished. No wheezes. Abdomen soft bowel sounds are heard. Extremities reveal some slight edema. No cyanosis or clubbing. Skin without rash. Neurologic examination is brief but nonfocal. - Labs CBC & Chem 7: 05/23/17 05:50 05/23/17 05:50 Labs: Abnormal Lab Results - Last 24 Hours (Table) 05/22/17 05/22/17 05/22/17 Range/Units 11:49 16:48 18:35 WBC (3.8-10.6) k/uL Hct (39.0-53.0) % MCHC (31.0-37.0) g/dL RDW (11.5-15.5) % Plt Count (150-450) k/uL Neutrophils # (1.3-7.7) k/uL Monocytes # (0-1.0) k/uL APTT 60.4 H (22.0-30.0) sec BUN (9-20) mg/dL Creatinine (0.66-1.25) mg/dL Glucose (74-99) mg/dL POC Glucose (mg/dL) 134 H 131 H (75-99) mg/dL Total Protein (6.3-8.2) g/dL Albumin (3.5-5.0) g/dL 05/22/17 05/23/17 05/23/17 Range/Units 20:59 05:50 05:50 WBC 12.8 H (3.8-10.6) k/uL Hct 56.3 H (39.0-53.0) % MCHC 30.7 L (31.0-37.0) g/dL RDW 16.6 H (11.5-15.5) % Plt Count 93 L (150-450) k/uL Neutrophils # 9.2 H (1.3-7.7) k/uL Monocytes # 1.1 H (0-1.0) k/uL APTT 64.7 H (22.0-30.0) sec BUN (9-20) mg/dL Creatinine (0.66-1.25) mg/dL Glucose (74-99) mg/dL POC Glucose (mg/dL) 120 H (75-99) mg/dL Total Protein (6.3-8.2) g/dL Albumin (3.5-5.0) g/dL 05/23/17 05/23/17 Range/Units 05:50 06:28 WBC (3.8-10.6) k/uL Hct (39.0-53.0) % MCHC (31.0-37.0) g/dL RDW (11.5-15.5) % Plt Count (150-450) k/uL Neutrophils # (1.3-7.7) k/uL Monocytes # (0-1.0) k/uL APTT (22.0-30.0) sec BUN 42 H (9-20) mg/dL Creatinine 1.80 H (0.66-1.25) mg/dL Glucose 117 H (74-99) mg/dL POC Glucose (mg/dL) 114 H (75-99) mg/dL Total Protein 5.8 L (6.3-8.2) g/dL Albumin 3.0 L (3.5-5.0) g/dL Microbiology - Last 24 Hours (Table) 05/21/17 12:15 Blood Culture - Preliminary Blood No Growth after 24 hours Assessment and Plan (1) COPD (chronic obstructive pulmonary disease) Status: Acute (2) Congestive heart failure (CHF) Status: Acute (3) Renal insufficiency syndrome Status: Acute (4) AICD (automatic cardioverter/defibrillator) present Status: Acute (5) CAD (coronary artery disease) Status: Acute (6) CHF (congestive heart failure) Status: Acute (7) Diabetes Status: Acute (8) HTN (hypertension) Status: Acute (9) Hypoxia Status: Acute (10) Ischemic cardiomyopathy Status: Acute (11) Nicotine dependence Status: Acute (12) Systolic CHF, acute on chronic Status: Acute Plan: Plan dated 05/23/2017 The patient will continue on Lasix 40 mg IV push every 8 hours. The patient's medications are reviewed including bronchodilators. Overall prognosis is guarded given his severe cardiomyopathy. The patient will need to follow with the office for a 6 minute walk distance a room air resting saturation and a pulmonary function test. This will give us a better idea of his overall lung function. Additional recommendations and suggestions are forthcoming. Time with Patient: Less than 30
--- NOTE | 2017-05-23 15:48 | PN ---
PROGRESS NOTE DATE OF SERVICE: 05/22/17 CHIEF COMPLAINT: Congestive heart failure and COPD. HISTORY OF PRESENT ILLNESS: This gentleman is improving. Temperature is down. He is less short of breath. PHYSICAL EXAM: Cardiac exam is normal. He has rales at both bases posteriorly. ABDOMEN: Soft, nontender. IMPRESSION: 1. Congestive heart failure. 2. Chronic obstructive pulmonary disease. 3. Pneumonitis. 4. Renal failure. PLAN: 1. D-dimer. 2. Echocardiogram. MMODL / IJN: [id number] /
[2017-05-23 16:36] LABS: Glucose,Whole Blood 119 mg/dL (75-99)
[2017-05-23] MEDS: ACETAMINOPHEN TAB 500 MG TAB PO PRN (16:45)
--- NOTE | 2017-05-23 17:25 | PN ---
PROGRESS NOTE CHIEF COMPLAINT: Congestive heart failure and COPD. HISTORY OF PRESENT ILLNESS: This gentleman is doing a little bit better each day. Breathing is improving. PHYSICAL EXAM: He still has rales scattered throughout both lung [place]. Cardiac exam is normal. The abdomen is soft and protuberant. IMPRESSION: Congestive heart failure. PLAN: Continue to follow current findings and laboratory studies. Probably home in the next day or two. MMODL / IJN: [id number] /
[2017-05-23] MEDS: traZODone HCL 100 MG TAB PO SCH (19:54)
[2017-05-23] MEDS: ATORVASTATIN 20 MG TAB PO SCH (19:54)
[2017-05-23] MEDS: QUEtiapine 200 MG TAB PO SCH (19:54)
[2017-05-23 20:42] LABS: Glucose,Whole Blood 143 mg/dL (75-99)
[2017-05-23 22:07] LABS: Glucose,Whole Blood 122 mg/dL (75-99)
[2017-05-23] MEDS: SODIUM CHLORIDE 0.9% 1,000 ML IV SCH (22:37)
[2017-05-24] MEDS: FUROSEMIDE 10 MG/ML 4 ML VIAL IV SCH (03:14)
[2017-05-24] MEDS: INSULIN LISPRO (humaLOG) 300 UNIT/3 ML VIAL SQ SCH ×2 (06:34→12:17)
[2017-05-24] MEDS: CARVEDILOL 12.5 MG TAB PO SCH (06:35)
[2017-05-24 07:50] LABS: Glucose,Whole Blood 111 mg/dL (75-99)
[2017-05-24] MEDS: IPRATROPIUM-ALBUTEROL 3 ML NEB INHALATION SCH ×3 (08:04→16:09)
[2017-05-24 08:59] VITALS: TEMP 97.6
[2017-05-24] MEDS ORDERED: BUMETANIDE 1 MG TAB PO SCH (09:00)
[2017-05-24] MEDS: ALLOPURINOL 100 MG TAB PO SCH (09:01)
[2017-05-24] MEDS: amLODIPine 10 MG TAB PO SCH (09:02)
[2017-05-24] MEDS: ASPIRIN 325 MG TAB PO SCH (09:02)
[2017-05-24] MEDS: cloNIDine HCL 0.2 MG TAB PO SCH (09:03)
[2017-05-24] MEDS: ESCITALOPRAM 10 MG TAB PO SCH (09:05)
[2017-05-24] MEDS: GABAPENTIN 300 MG CAP PO SCH (09:05)
[2017-05-24] MEDS: hydrALAZINE HCL 25 MG TAB PO SCH (09:06)
[2017-05-24] MEDS: INSULIN GLARGINE 100 UNIT/ML 10 ML VIAL SQ SCH (09:11)
--- NOTE | 2017-05-24 10:30 | P.PN ---
Subjective Principal diagnosis: Congestive heart failure This is a 56-year-old -[place] gentleman with known history of coronary artery disease and prior PCI, history of ischemic cardiomyopathy with prior AICD implant, diabetes, hypertension, hyperlipidemia, nicotine dependence, who presented to the hospital with symptoms of progressively worsening shortness of breath. He is currently on treatment for congestive cardiac failure. His weight today is down 1 kg. Echocardiogram with Doppler study was performed which revealed an ejection fraction of 55-60%. Patient seen and examined this morning, breathing improving. Blood pressure this morning 134/84, heart rate in the 80s. 95% on 6 L. Blood cell count 12.8, hemoglobin 17.3, platelet count 93. D-dimer 0.5. Potassium 4.2, BUN 42, creatinine 1.8. Discontinue the patient's Nitropaste. Disocontinue IV heparin. Continue IV Lasix for 24 hours. 05/24/2017 Patient seen and examined this morning, feeling much better overall. Blood pressure 116/70, heart rate in the 80s, labs pending. We will discontinue the IV Lasix today and increase his home dose of Bumex. He may be able to be discharged from cardiology's perspective. Follow-up appointment with cardiology will be made. Objective - Vital Signs Vital signs: Vital Signs Temp 97.6 F 05/24/17 08:00 Pulse 88 05/24/17 08:14 Resp 18 05/24/17 08:00 BP 117/71 05/24/17 08:00 Pulse Ox 92 L 05/24/17 08:04 Intake & Output 05/23/17 05/24/17 05/24/17 18:59 06:59 18:59 Intake Total 920 240 Output Total 750 2300 Balance 170 -2300 240 Weight 134.8 kg 135 kg Intake: Intake, IV Titration 500 Amount Heparin Sodium,Porcine/ 500 D5w Pmx 25,000 unit In Dextrose/Water 1 500ml. bag @ 7.37 UNITS/KG/HR 19 .98 mls/hr IV .Q24H [facility] Rx#:[id number] Oral 420 240 Output: Urine 750 2300 Other: Voiding Method Urinal Urinal # Voids 1 - Exam PHYSICAL EXAMINATION: HEENT: Head is atraumatic, normocephalic. Pupils equal, round. Neck is supple. There is no elevated jugular venous pressure. HEART EXAMINATION: Heart S1, S2 normal. No murmur or gallop heard. CHEST EXAMINATION: Lungs clear with mild diminished air entry to the bases. ABDOMEN: Soft, nontender. Bowel sounds are heard. No organomegaly noted. EXTREMITIES: 2+ peripheral pulses with no evidence of peripheral edema and no calf tenderness noted. NEUROLOGIC patient is awake, alert and oriented -3. . - Labs CBC & Chem 7: 05/23/17 05:50 05/23/17 05:50 Labs: Abnormal Lab Results - Last 24 Hours (Table) 05/23/17 05/23/17 05/23/17 Range/Units 11:34 16:45 20:40 POC Glucose (mg/dL) 119 H 122 H 143 H (75-99) mg/dL 05/24/17 Range/Units 05:56 POC Glucose (mg/dL) 111 H (75-99) mg/dL Microbiology - Last 24 Hours (Table) 05/21/17 12:15 Blood Culture - Preliminary Blood No Growth after 48 hours Assessment and Plan (1) Renal insufficiency syndrome Status: Acute (2) AICD (automatic cardioverter/defibrillator) present Status: Acute (3) CAD (coronary artery disease) Status: Acute (4) COPD exacerbation Status: Acute (5) Diabetes Status: Acute (6) HTN (hypertension) Status: Acute (7) Ischemic cardiomyopathy Status: Acute (8) Nicotine dependence Status: Acute (9) Systolic CHF, acute on chronic Status: Acute Plan: From cardiology's perspective, we will discontinue the patient's IV Lasix, changed him over to oral Bumex and increase from his home dose. Follow-up appointment with cardiology post discharge. DNP note has been reviewed, I agree with a documented findings and plan of care. Patient was seen and examined.
[2017-05-24 11:28] LABS: Calcium 8.5 mg/dL (8.4-10.2); Potassium 4.4 mmol/L (3.5-5.1)
[2017-05-24 11:53] LABS: Glucose,Whole Blood 89 mg/dL (75-99)
[2017-05-24 12:31] VITALS: RESP 16
--- NOTE | 2017-05-24 14:52 | P.PN ---
Subjective Progress note dated 05/23/2017 This is a 56-year-old male with history of vomiting chronic systolic CHF with acute exacerbation. The patient has an ejection fraction of less than 20%. Because of his severe cardiomyopathy, he status post AICD. Also suspected have underlying COPD morbid obesity diabetes hyperlipidemia hypertension and bipolar disorder. The patient seemed to be doing better. States that he is breathing better. Feels better. Less shortness of breath. No chest pain no chest discomfort. No nausea vomiting or diarrhea. No fever no chills. Not coughing up any phlegm. He will need outpatient evaluation for his underlying COPD. Progress note dated 05/24/2017 This is a 56-year-old black male with a history of chronic systolic CHF who had an acute exacerbation. The patient came with congestive heart failure secondary to systolic CHF. His ejection fraction of only 20%. The patient is doing much better. Because of his severe cardiomyopathy status post AICD placement. He also has a history of obesity COPD diabetes hyperlipidemia hypertension and bipolar disorder. He sees a pain doctor one of the customer account specialist and his primary is Dr. Andres Lu. Again being discharged home today. Objective - Vital Signs Vital signs: Vital Signs Temp 97.6 F 05/24/17 12:00 Pulse 79 05/24/17 12:00 Resp 16 05/24/17 12:00 BP 115/74 05/24/17 12:00 Pulse Ox 89 L 05/24/17 12:00 Intake & Output 05/23/17 05/24/17 05/24/17 18:59 06:59 18:59 Intake Total 920 240 Output Total 750 2300 Balance 170 -2300 240 Weight 134.8 kg 135 kg Intake: Intake, IV Titration 500 Amount Heparin Sodium,Porcine/ 500 D5w Pmx 25,000 unit In Dextrose/Water 1 500ml. bag @ 7.37 UNITS/KG/HR 19 .98 mls/hr IV .Q24H GARIMA Rx#:[id number] Oral 420 240 Output: Urine 750 2300 Other: Voiding Method Urinal Urinal # Voids 1 - Exam No acute distress, he was actually sleeping in the room. No respiratory distress. HEENT examination is grossly unremarkable. Mucous membranes are moist. No oral lesions. Neck supple. Full range of motion. No adenopathy or thyromegaly. Neck veins are flat. Cardiovascular examination reveals regular rhythm rate. S1-S2 normal. No distinct murmurs noted. Lungs reveal some bibasilar crackles. Breath sounds are diminished. No wheezes. Abdomen soft bowel sounds are heard. Extremities reveal some slight edema. No cyanosis or clubbing. Skin without rash. Neurologic examination is brief but nonfocal. - Labs CBC & Chem 7: 05/23/17 05:50 05/24/17 10:55 Labs: Abnormal Lab Results - Last 24 Hours (Table) 05/23/17 05/23/17 05/23/17 Range/Units 11:34 16:45 20:40 Carbon Dioxide (22-30) mmol/L BUN (9-20) mg/dL Creatinine (0.66-1.25) mg/dL POC Glucose (mg/dL) 119 H 122 H 143 H (75-99) mg/dL 05/24/17 05/24/17 Range/Units 05:56 10:55 Carbon Dioxide 36 H (22-30) mmol/L BUN 38 H (9-20) mg/dL Creatinine 1.68 H (0.66-1.25) mg/dL POC Glucose (mg/dL) 111 H (75-99) mg/dL Microbiology - Last 24 Hours (Table) 05/21/17 12:15 Blood Culture - Preliminary Blood No Growth after 72 hours Assessment and Plan (1) COPD (chronic obstructive pulmonary disease) Status: Acute (2) Congestive heart failure (CHF) Status: Acute (3) Renal insufficiency syndrome Status: Acute (4) AICD (automatic cardioverter/defibrillator) present Status: Acute (5) CAD (coronary artery disease) Status: Acute (6) CHF (congestive heart failure) Status: Acute (7) Diabetes Status: Acute (8) HTN (hypertension) Status: Acute (9) Hypoxia Status: Acute (10) Ischemic cardiomyopathy Status: Acute (11) Nicotine dependence Status: Acute (12) Systolic CHF, acute on chronic Status: Acute Plan: Plan dated 05/23/2017 The patient will continue on Lasix 40 mg IV push every 8 hours. The patient's medications are reviewed including bronchodilators. Overall prognosis is guarded given his severe cardiomyopathy. The patient will need to follow with the office for a 6 minute walk distance a room air resting saturation and a pulmonary function test. This will give us a better idea of his overall lung function. Additional recommendations and suggestions are forthcoming. Plan dated 05/24/2017 The patient is doing well. Lasix is been switched to by mouth. He was previously receiving Lasix 40 mg IV push every 8 hours. The patient should have follow-up in pulmonary clinic. He'll need a full pulmonary function test in 6 minute walk distance. We discussed that with him yesterday and today. The patient will discuss that with his primary doctor . Additional recommendations and suggestions are forthcoming. Time with Patient: Less than 30
[2017-05-24 16:55] VITALS: BP 117/74; PULSE 73
--- NOTE | 2017-05-25 15:10 | DS ---
DISCHARGE SUMMARY CHIEF COMPLAINT: Shortness of breath and difficulty breathing. HISTORY OF PRESENT ILLNESS AND PHYSICAL EXAM: Details of this man's history and physical can be found in the initial workup. COURSE IN HOSPITAL: After admission, placed on bedrest and started on intravenous fluids and started on diuresis as well as updrafts. He was seen by Cardiology. It was felt that most of his difficulty was related to a combination of COPD and congestive heart failure. He continued to slowly improve and chest cleared and breathing became much less labored. It was felt to he was stable enough by Cardiology and myself to go home on the and he will go home on light activity, cardiac diet and will be scheduled most of his old medications. He will be seen in the office in 1 or 2 days. FINAL DIAGNOSIS: 1. Acute congestive heart failure. 2. Cardiomyopathy. 3. Chronic obstructive pulmonary disease. 4. Renal insufficiency. 5. Type 2 diabetes mellitus. 6. Hypertension. OPERATIONS: None. CONSULTATIONS: Cardiology. He is improved. MMPANTERA / LIDNAN: [id number] /
== END 2017-05-24 17:51 | disposition home or self-care (01) | DRG 291 ==
LOC: EC 11:49 → 6SEL 16:13
PROVIDERS: ADMIT Family Medicine; ATTEND Family Medicine
DX: I11.0 Hypertensive heart disease with heart failure (principal); J18.9 Pneumonia, unspecified organism; E11.42 Type 2 diabetes mellitus with diabetic polyneuropathy; I95.9 Hypotension, unspecified; J44.0 Chronic obstructive pulmonary disease with (acute) lower respiratory infection; N19 Unspecified kidney failure; J44.1 Chronic obstructive pulmonary disease with (acute) exacerbation; R04.2 Hemoptysis; E66.2 Morbid (severe) obesity with alveolar hypoventilation; I25.5 Ischemic cardiomyopathy; R09.02 Hypoxemia; I50.23 Acute on chronic systolic (congestive) heart failure; R11.10 Vomiting, unspecified; R00.0 Tachycardia, unspecified; R74.8 Abnormal levels of other serum enzymes; F17.210 Nicotine dependence, cigarettes, uncomplicated; I25.10 Atherosclerotic heart disease of native coronary artery without angina pectoris; I25.2 Old myocardial infarction; E78.5 Hyperlipidemia, unspecified; F31.9 Bipolar disorder, unspecified; Z79.4 Long term (current) use of insulin; Z95.810 Presence of automatic (implantable) cardiac defibrillator; Z79.899 Other long term (current) drug therapy; Z88.0 Allergy status to penicillin; Z71.3 Dietary counseling and surveillance; Z71.6 Tobacco abuse counseling; Z87.19 Personal history of other diseases of the digestive system; Z86.79 Personal history of other diseases of the circulatory system; Z86.2 Personal history of diseases of the blood and blood-forming organs and certain disorders involving the immune mechanism; Z98.61 Coronary angioplasty status
CPT/HCPCS: 36415; 71020; 80048; 80053; 81001; 82550; 82553; 83036; 83605; 83735; 83880; 84484; 85025; 85379; 85610; 85730; 87040; 93005; 93306; 94640; 94760; 96361; 96365; 96368; 96374; 96375; 96376; 99285

== ENCOUNTER 2017-06-02 16:21 | Inpatient (IN) | payer MEDICARE, OTHER ==
[2017-06-02] MEDS ORDERED: SODIUM CHLORIDE 0.9% 1,000 ML IV STA (16:24)
[2017-06-02] MEDS ORDERED: SODIUM CHLORIDE 0.9% 500 ML IV STA (16:24)
[2017-06-02] MEDS ORDERED: IPRATROPIUM-ALBUTEROL 3 ML NEB INHALATION STA (16:57)
--- NOTE | 2017-06-02 16:58 | ED ---
General Adult HPI - General Chief complaint: Weakness Stated complaint: weakness Time Seen by Provider: 06/02/17 16:23 Source: patient, RN notes reviewed, old records reviewed Mode of arrival: EMS Limitations: no limitations - History of Present Illness Initial comments: This is a 36-year-old male to the ER for evaluation. Patient has a for evaluation regarding weakness, patient states he just feels generalized feels weak. Weakness for 2 days increasing. Just decreased strength in general, strength walking and struck his hours. Symptoms are bilateral. Denies other complaints to adrenal nausea vomiting diarrhea no chest pain or shortness of breath or abdominal pain. No recent change in medications - Related Data Home Medications Medication Instructions Recorded Confirmed Gabapentin [Neurontin] 300 mg PO DAILY 01/05/16 06/02/17 Insulin Glargine [Lantus] 30 units SQ BID 01/05/16 06/02/17 amLODIPine [Norvasc] 10 mg PO DAILY 01/05/16 06/02/17 hydrALAZINE HCL [Apresoline] 25 mg PO TID 01/05/16 06/02/17 traZODone HCL [Desyrel] 200 mg PO HS 01/05/16 06/02/17 Allopurinol [Zyloprim] 100 mg PO DAILY 05/21/17 06/02/17 Carvedilol [Coreg*] 12.5 mg PO BID 05/21/17 06/02/17 Escitalopram [Lexapro] 10 mg PO DAILY 05/21/17 06/02/17 QUEtiapine [SEROquel] 200 mg PO HS 05/21/17 06/02/17 cloNIDine HCL [Catapres] 0.2 mg PO TID 05/21/17 06/02/17 Previous Rx's Medication Instructions Recorded Albuterol Inhaler [Ventolin Hfa 2 puff INHALATION RT-Q6H PRN #1 05/24/17 Inhaler] inhalation Aspirin EC [Ecotrin Low Dose] 81 mg PO DAILY #100 tablet. 05/24/17 Atorvastatin [Lipitor] 80 mg PO HS #30 tab 05/24/17 Bumetanide [BUMEX] 4 mg PO BID #60 tab 05/24/17 Insulin Aspart [NovoLOG Flexpen] 10 units SQ TID-W/MEALS #1 pen 05/24/17 Ipratropium-Albuterol Nebulize 3 ml INHALATION RT-QID #120 neb 05/24/17 [Duoneb 0.5 mg-3 mg/3 ml Soln] Allergies Allergy/AdvReac Type Severity Reaction Status Date / Time Penicillins Allergy Unknown Verified 06/02/17 17:00 Review of Systems ROS Statement: Those systems with pertinent positive or pertinent negative responses have been documented in the HPI. ROS Other: All systems not noted in ROS Statement are negative. Past Medical History Past Medical History: Coronary Artery Disease (CAD), Chest Pain / Angina, Heart Failure, COPD, Diabetes Mellitus, Hyperlipidemia, Hypertension, Myocardial Infarction (AR), Sleep Apnea/CPAP/BIPAP Additional Past Medical History / Comment(s): MURMUR, "HEART SKIPS A BEAT", PAST ACID REFLUX, NEUROPATHY, BIPOLAR, Last Myocardial Infarction Date:: 2004 History of Any Multi-Drug Resistant Organisms: None Reported Past Surgical History: AICD, Heart Catheterization With Stent Past Anesthesia/Blood Transfusion Reactions: No Reported Reaction Date of Last Stent Placement:: 2004 Type of Cardiac Device: AICD Device Placement Date:: 09/2004 Past Psychological History: Bipolar Smoking Status: Current some day smoker - Past Family History Father Family Medical History: Cancer Mother Family Medical History: Cancer General Exam Limitations: no limitations General appearance: alert, in no apparent distress, lethargic, in distress Head exam: Present: atraumatic, normocephalic, normal inspection Eye exam: Present: normal appearance, PERRL, EOMI. Absent: scleral icterus, conjunctival injection, periorbital swelling ENT exam: Present: normal exam, mucous membranes moist Neck exam: Present: normal inspection. Absent: tenderness, meningismus, lymphadenopathy Respiratory exam: Present: normal lung sounds bilaterally. Absent: respiratory distress, wheezes, rales, rhonchi, stridor Cardiovascular Exam: Present: regular rate, normal rhythm, normal heart sounds. Absent: systolic murmur, diastolic murmur, rubs, gallop, clicks GI/Abdominal exam: Present: soft, normal bowel sounds. Absent: distended, tenderness, guarding, rebound, rigid Extremities exam: Present: normal inspection, full ROM, normal capillary refill. Absent: tenderness, pedal edema, joint swelling, calf tenderness Back exam: Present: normal inspection Neurological exam: Present: alert, oriented X3, CN II-XII intact Psychiatric exam: Present: normal affect, normal mood Skin exam: Present: warm, dry, intact, normal color. Absent: rash Course Vital Signs 06/02/17 06/02/17 06/02/17 16:24 17:08 17:22 Temperature 98.7 F Pulse Rate 85 85 88 Respiratory 20 Rate Blood Pressure 109/72 O2 Sat by Pulse Oximetry 06/02/17 18:31 Temperature Pulse Rate 77 Respiratory 20 Rate Blood Pressure 116/65 O2 Sat by Pulse 82 L Oximetry - Reevaluation(s) Reevaluation #1: 06/02/17 18:49 Patient is improvement with breathing treatment symptoms control. Reevaluation #2: 06/02/17 18:49 Patient states he feels improved. Still feels weak but breathing is improved EKG Findings - EKG Comments: EKG Findings:: EKG shows normal sinus rhythm rate of 82, TX 170, QRS 120, QTC 41 Medical Decision Making - Lab Data Result diagrams: 06/02/17 16:49 06/02/17 16:49 Lab Results 06/02/17 06/02/17 06/02/17 Range/Units 16:49 16:49 16:49 WBC 9.5 (3.8-10.6) k/uL RBC 6.18 H (4.30-5.90) m/uL Hgb 18.0 H (13.0-17.5) gm/dL Hct 59.9 H (39.0-53.0) % MCV 96.9 (80.0-100.0) fL MCH 29.1 (25.0-35.0) pg MCHC 30.1 L (31.0-37.0) g/dL RDW 15.9 H (11.5-15.5) % Plt Count 158 D (150-450) k/uL Neutrophils % 68 % Lymphocytes % 21 % Monocytes % 7 % Eosinophils % 1 % Basophils % 1 % Neutrophils # 6.4 (1.3-7.7) k/uL Lymphocytes # 2.0 (1.0-4.8) k/uL Monocytes # 0.7 (0-1.0) k/uL Eosinophils # 0.1 (0-0.7) k/uL Basophils # 0.1 (0-0.2) k/uL Hypochromasia Marked PT (9.0-12.0) sec INR (<1.2) APTT (22.0-30.0) sec Sodium 139 (137-145) mmol/L Potassium 5.5 H (3.5-5.1) mmol/L Chloride 98 (98-107) mmol/L Carbon Dioxide 30 (22-30) mmol/L Anion Gap 11 mmol/L BUN 33 H (9-20) mg/dL Creatinine 2.70 H (0.66-1.25) mg/dL Est GFR (MDRD) Af Amer 30 (>60 ml/min/1.73 sqM) Est GFR (MDRD) Non-Af 25 (>60 ml/min/1.73 sqM) Glucose 182 H (74-99) mg/dL Plasma Lactic Acid Rodney (0.7-2.0) mmol/L Calcium 9.0 (8.4-10.2) mg/dL Phosphorus 4.0 (2.5-4.5) mg/dL Magnesium 2.0 (1.6-2.3) mg/dL Total Bilirubin 0.7 (0.2-1.3) mg/dL AST 30 (17-59) U/L ALT 26 (21-72) U/L Alkaline Phosphatase 80 (38-126) U/L Total Creatine Kinase 40 L (55-170) U/L CK-MB (CK-2) 0.5 (0.0-2.4) ng/mL CK-MB (CK-2) Rel Index 1.3 Troponin I 0.050 H* (0.000-0.034) ng/mL Total Protein 6.8 (6.3-8.2) g/dL Albumin 3.5 (3.5-5.0) g/dL TSH 0.532 (0.465-4.680) mIU/L Urine Color Urine Appearance (Clear) Urine pH (5.0-8.0) Ur Specific Kent (1.001-1.035) Urine Protein (Negative) Urine Glucose (UA) (Negative) Urine Ketones (Negative) Urine Blood (Negative) Urine Nitrite (Negative) Urine Bilirubin (Negative) Urine Urobilinogen (<2.0) mg/dL Ur Leukocyte Esterase (Negative) 06/02/17 06/02/17 06/02/17 Range/Units 16:49 16:49 17:46 WBC (3.8-10.6) k/uL RBC (4.30-5.90) m/uL Hgb (13.0-17.5) gm/dL Hct (39.0-53.0) % MCV (80.0-100.0) fL MCH (25.0-35.0) pg MCHC (31.0-37.0) g/dL RDW (11.5-15.5) % Plt Count (150-450) k/uL Neutrophils % % Lymphocytes % % Monocytes % % Eosinophils % % Basophils % % Neutrophils # (1.3-7.7) k/uL Lymphocytes # (1.0-4.8) k/uL Monocytes # (0-1.0) k/uL Eosinophils # (0-0.7) k/uL Basophils # (0-0.2) k/uL Hypochromasia PT 12.0 (9.0-12.0) sec INR 1.2 H (<1.2) APTT 26.1 (22.0-30.0) sec Sodium (137-145) mmol/L Potassium (3.5-5.1) mmol/L Chloride (98-107) mmol/L Carbon Dioxide (22-30) mmol/L Anion Gap mmol/L BUN (9-20) mg/dL Creatinine (0.66-1.25) mg/dL Est GFR (MDRD) Af Amer (>60 ml/min/1.73 sqM) Est GFR (MDRD) Non-Af (>60 ml/min/1.73 sqM) Glucose (74-99) mg/dL Plasma Lactic Acid Rodney 0.9 (0.7-2.0) mmol/L Calcium (8.4-10.2) mg/dL Phosphorus (2.5-4.5) mg/dL Magnesium (1.6-2.3) mg/dL Total Bilirubin (0.2-1.3) mg/dL AST (17-59) U/L ALT (21-72) U/L Alkaline Phosphatase (38-126) U/L Total Creatine Kinase (55-170) U/L CK-MB (CK-2) (0.0-2.4) ng/mL CK-MB (CK-2) Rel Index Troponin I (0.000-0.034) ng/mL Total Protein (6.3-8.2) g/dL Albumin (3.5-5.0) g/dL TSH (0.465-4.680) mIU/L Urine Color Yellow Urine Appearance Clear (Clear) Urine pH 5.5 (5.0-8.0) Ur Specific Kent 1.008 (1.001-1.035) Urine Protein Negative (Negative) Urine Glucose (UA) Negative (Negative) Urine Ketones Negative (Negative) Urine Blood Negative (Negative) Urine Nitrite Negative (Negative) Urine Bilirubin Negative (Negative) Urine Urobilinogen <2.0 (<2.0) mg/dL Ur Leukocyte Esterase Negative (Negative) Disposition Clinical Impression: CHF (congestive heart failure), Pneumonitis, COPD (chronic obstructive pulmonary disease), Hypoxia, COPD exacerbation, Nosocomial pneumonia Disposition: ADMITTED IP TO THIS HOSP Condition: Serious Referrals: Jayson Lu MD [Primary Care Provider] - 1-2 days
[2017-06-02 17:18] LABS: Basophils # (A) 0.1 k/uL (0-0.2); Basophils % (A) 1 %; CH 28.3; CHCM 29.3; Eosinophils # (A) 0.1 k/uL (0-0.7); Eosinophils % (A) 1 %; HCT 59.9 % (39.0-53.0); HDW 2.47; Hypochromasia Marked; Luc # (Auto) 0.16; Luc % (Auto) 2; Lymphocytes % (A) 21 %; MCH 29.1 pg (25.0-35.0); MCHC 30.1 g/dL (31.0-37.0); MCV 96.9 fL (80.0-100.0); Monocytes # (A) 0.7 k/uL (0-1.0); Monocytes % (A) 7 %; Neutrophils # (A) 6.4 k/uL (1.3-7.7); Neutrophils % (A) 68 %; RBC 6.18 m/uL (4.30-5.90); RDW 15.9 % (11.5-15.5); WBC 9.5 k/uL (3.8-10.6); WBC (Perox) 9.76
[2017-06-02 17:34] LABS: Creatine Kinase MB 0.5 ng/mL (0.0-2.4); Troponin I 0.05 ng/mL (0.000-0.034)
[2017-06-02 17:37] LABS: INR 1.2 (<1.2); Partial Thromboplastin Time 26.1 sec (22.0-30.0)
[2017-06-02 18:02] LABS: Potassium 5.5 mmol/L (3.5-5.1); Total Bilirubin 0.7 mg/dL (0.2-1.3); Total Protein 6.8 g/dL (6.3-8.2)
[2017-06-02 18:02] LABS: Appearance,Urine Clear (Clear); Bilirubin,Urine Negative (Negative); Glucose,Urine (UA) Negative (Negative); Ketones,Urine Negative (Negative); Leukocyte Esterase,Urine Negative (Negative); Nitrite,Urine Negative (Negative); PH, Urine 5.5 (5.0-8.0); Protein,Urine Negative (Negative); Specific Gravity,Urine 1.008 (1.001-1.035); UA Billing (MACRO vs. MICRO) CHEM; Urobilinogen,Urine <2.0 mg/dL (<2.0)
--- NOTE | 2017-06-02 18:24 | XR ---
EXAMINATION TYPE: XR chest 2V DATE OF EXAM: 06/02/2017 COMPARISON: 05/21/2017 HISTORY: Weakness TECHNIQUE: Frontal and lateral views of the chest are obtained. FINDINGS: Heart appears enlarged. There is mild pulmonary vascular congestion. There are chest leads . There is left axillary pacemaker with the lead tips in the right ventricle. There is slight bluntin g of right costophrenic angle. There is probably some infiltrate at the right posterior lung base. IMPRESSION: There is evidence for new infiltrate and atelectasis at the right lung base compared to old exam. Mild heart failure cannot be excluded.
[2017-06-02] MEDS ORDERED: PNEUMONIA PROTOCOL UTILIZED 1 EACH MISC PO PRN (18:48)
[2017-06-02] MEDS ORDERED: LEVOFLOXACIN 750MG-D5W PMX 750 MG in DEXTROSE/WATER 1 150ML.BAG IVPB STA (18:48)
[2017-06-02] MEDS ORDERED: AZTREONAM 2 GM in SODIUM CHLORIDE 0.9% 100 ML IVPB STA (18:48)
--- NOTE | 2017-06-02 19:21 | CT ---
EXAMINATION TYPE: CT brain wo con DATE OF EXAM: 06/02/2017 COMPARISON: NONE HISTORY: Dizziness and visual disturbance. CT DLP: 1165 mGycm Automated exposure control for dose reduction was used. FINDINGS: Ventricles have normal size. There is no mass effect nor midline shift. There is no sign of intracran ial hemorrhage. The calvarium is intact. IMPRESSION: NEGATIVE CT SCAN OF THE BRAIN.
[2017-06-02] MEDS: IPRATROPIUM-ALBUTEROL 3 ML NEB INHALATION SCH (19:41)
[2017-06-02] MEDS: SODIUM CHLORIDE 0.9% 1,000 ML IV SCH (19:42)
[2017-06-02 20:04] LABS: Glucose,Whole Blood 286 mg/dL (75-99)
[2017-06-02] MEDS ORDERED: MORPHINE SULFATE 4 MG/ML SYRINGE IVP STA (20:53)
[2017-06-02 23:24] LABS: Glucose,Whole Blood 182 mg/dL (75-99)
[2017-06-02] MEDS: IPRATROPIUM-ALBUTEROL 3 ML NEB INHALATION PRN (23:54)
[2017-06-03] MEDS: AZTREONAM 2 GM in SODIUM CHLORIDE 0.9% 100 ML IVPB SCH ×3 (04:39→21:04)
[2017-06-03] MEDS: SODIUM CHLORIDE 0.9% 1,000 ML IV SCH ×2 (04:39→17:12)
[2017-06-03] MEDS: MORPHINE SULFATE 4 MG/ML SYRINGE IVP PRN ×2 (04:41→14:26)
[2017-06-03] MEDS: IPRATROPIUM-ALBUTEROL 3 ML NEB INHALATION PRN (05:36)
[2017-06-03 06:11] LABS: Glucose,Whole Blood 106 mg/dL (75-99)
--- NOTE | 2017-06-03 07:02 | XR ---
EXAMINATION TYPE: XR chest 2V DATE OF EXAM: 06/03/2017 HISTORY: pneumonia. REFERENCE: Previous study dated 06/02/2017. FINDINGS: There is a bipolar pacemaker place on the left. Heart size is upper limits of normal. Pulmonary vasculature has improved. There continues to be some subtle interstitial change. This has improved particularly at the right lung base. I cannot exclude a small left effusion. IMPRESSION: IMPROVING CHANGES OF CONGESTIVE HEART FAILURE.
[2017-06-03] MEDS: IPRATROPIUM-ALBUTEROL 3 ML NEB INHALATION SCH ×4 (09:03→20:23)
[2017-06-03] MEDS ORDERED: ALBUTEROL INHALER 60 PUFF/8 GM INHALER INHALATION PRN (10:57)
[2017-06-03 11:56] LABS: Glucose,Whole Blood 135 mg/dL (75-99)
[2017-06-03] MEDS: amLODIPine 10 MG TAB PO SCH (11:59)
[2017-06-03] MEDS: cloNIDine HCL 0.2 MG TAB PO SCH ×3 (11:59→21:13)
[2017-06-03] MEDS: ASPIRIN 81 MG PO SCH (11:59)
[2017-06-03] MEDS: BUMETANIDE 1 MG TAB PO SCH ×2 (11:59→22:31)
[2017-06-03] MEDS: ALLOPURINOL 100 MG TAB PO SCH (11:59)
[2017-06-03] MEDS: ESCITALOPRAM 10 MG TAB PO SCH (12:00)
[2017-06-03] MEDS ORDERED: IPRATROPIUM-ALBUTEROL 3 ML NEB INHALATION SCH (12:00)
[2017-06-03] MEDS: CARVEDILOL 12.5 MG TAB PO SCH ×2 (12:00→21:06)
[2017-06-03] MEDS: GABAPENTIN 300 MG CAP PO SCH (12:00)
[2017-06-03] MEDS: INSULIN LISPRO (humaLOG) 300 UNIT/3 ML VIAL SQ SCH ×2 (12:30→17:12)
[2017-06-03 16:42] LABS: Glucose,Whole Blood 144 mg/dL (75-99)
[2017-06-03] MEDS: hydrALAZINE HCL 25 MG TAB PO SCH ×2 (17:14→21:08)
[2017-06-03] MEDS ORDERED: LEVOFLOXACIN 750MG-D5W PMX 750 MG in DEXTROSE/WATER 1 150ML.BAG IVPB SCH (21:00)
[2017-06-03] MEDS: ATORVASTATIN 80 MG TAB PO SCH (21:06)
[2017-06-03] MEDS: traZODone HCL 100 MG TAB PO SCH (21:06)
[2017-06-03] MEDS: QUEtiapine 200 MG TAB PO SCH (21:09)
[2017-06-03 21:33] LABS: Glucose,Whole Blood 117 mg/dL (75-99)
--- NOTE | 2017-06-03 21:53 | HP ---
PROGRESS NOTE CHIEF COMPLAINT: Coughing and shortness of breath. HISTORY OF PRESENT ILLNESS: This is another recent admission of this 56-year-old, obese male, with severe cardiomyopathy with and ejection fraction of between 10 and 20%. He recently went home and was doing well and then suddenly started having fits of coughing where he stated that he "dropped." When asked to explain, he said that his legs felt strange and had immediate pain in the legs. He had no actual syncope, chest pain, etc. He has had no fever or chills. Came to the emergency room where he was identified as having a pneumonitis. REVIEW OF SYSTEMS: He has had no cough, hemoptysis, abdominal pain, vomiting, diarrhea, melena, urinary complaints, etc. Does have diabetes. PAST MEDICAL HISTORY, FAMILY HISTORY AND PERSONAL AND SOCIAL HISTORY: Otherwise unremarkable and unchanged. PHYSICAL EXAMINATION: Blood pressure is 142/95 with a pulse of 96, respirations of 35 and he is afebrile. In general, he appeared to be obese in no acute distress. Skin is dry and lymph nodes are not enlarged. Head ears, eyes, nose, mouth and throat were normal and neck veins are not distended. Thyroid was not enlarged. The chest demonstrated decreased breath sounds at the bases with rales on both sides. Cardiac exam demonstrated what sound like sinus rhythm, no murmurs or extra sounds. Abdomen is protuberant, soft and nontender. Extremities are normal. Neurologically he is intact. IMPRESSION: 1. Pneumonitis. 2. Congestive heart failure. 3. Cardiomyopathy. 4. Obesity. 5. Type 2 diabetes mellitus. PLAN: 1. Bed rest. 2. IV fluids. 3. Updrafts. MMODL / IJN: [id number] /
[2017-06-03] MEDS: INSULIN GLARGINE 100 UNIT/ML 10 ML VIAL SQ SCH (21:59)
--- NOTE | 2017-06-03 21:59 | PN ---
PROGRESS NOTE CHIEF COMPLAINT: Pneumonitis. HISTORY OF PRESENT ILLNESS: This gentleman is doing well. He has not had any fever or chills. He is not particularly short of breath. PHYSICAL EXAMINATION: His color is good and hydration is good. Chest demonstrates decreased breath sounds at the bases with rales and rhonchi. The cardiac exam demonstrates an irregularly, irregular rhythm. The abdomen is protuberant, soft and nontender. Extremities normal. Neurologic is intact. IMPRESSION: 1. Pneumonitis. 2. Congestive heart failure. 3. Cardiomyopathy. 4. Diabetes. PLAN: Continue on current program. MMODL / IJN: [id number] /
[2017-06-04] MEDS: IPRATROPIUM-ALBUTEROL 3 ML NEB INHALATION PRN (01:16)
[2017-06-04] MEDS: SODIUM CHLORIDE 0.9% 1,000 ML IV SCH (04:37)
[2017-06-04] MEDS: AZTREONAM 2 GM in SODIUM CHLORIDE 0.9% 100 ML IVPB SCH ×4 (04:51→19:59)
[2017-06-04 06:25] LABS: Glucose,Whole Blood 107 mg/dL (75-99)
[2017-06-04] MEDS: INSULIN LISPRO (humaLOG) 300 UNIT/3 ML VIAL SQ SCH ×3 (07:05→18:15)
[2017-06-04 07:13] LABS: Calcium 8.5 mg/dL (8.4-10.2)
[2017-06-04 07:20] LABS: Potassium 5.1 mmol/L (3.5-5.1)
[2017-06-04] MEDS: ALLOPURINOL 100 MG TAB PO SCH (08:32)
[2017-06-04] MEDS: hydrALAZINE HCL 25 MG TAB PO SCH (08:33)
[2017-06-04] MEDS: CARVEDILOL 12.5 MG TAB PO SCH ×2 (08:36→21:33)
[2017-06-04] MEDS: ASPIRIN 81 MG PO SCH (08:36)
[2017-06-04] MEDS: ESCITALOPRAM 10 MG TAB PO SCH (08:37)
[2017-06-04] MEDS: GABAPENTIN 300 MG CAP PO SCH (08:37)
[2017-06-04] MEDS: cloNIDine HCL 0.2 MG TAB PO SCH ×3 (08:37→21:32)
[2017-06-04] MEDS: IPRATROPIUM-ALBUTEROL 3 ML NEB INHALATION SCH ×4 (08:43→20:27)
[2017-06-04] MEDS: INSULIN GLARGINE 100 UNIT/ML 10 ML VIAL SQ SCH ×2 (08:46→21:33)
[2017-06-04] MEDS ORDERED: FUROSEMIDE 10 MG/ML 4 ML VIAL IV SCH (09:00)
--- NOTE | 2017-06-04 09:29 | P.NPCON ---
History of Present Illness - Reason for Consult acute renal failure - History of Present Illness Reason for consultation: Acute kidney injury on chronic kidney disease History of present illness: Patient is a 56-year-old male seen in renal consultation for acute kidney injury on chronic kidney disease. Patient has chronic kidney disease stage III with baseline creatinine in the range of 1.7 and 1.8 secondary to nephrosclerosis and cardiorenal syndrome. His creatinine was elevated at 2.7 on admission. Patient initially received IV fluids and then was started on IV Lasix last night due to vascular congestion noted on chest x-ray. His creatinine is down to 1.98 today. Urinalysis is noted to be benign. Patient was recently admitted about 10 days ago with CHF exacerbation. Patient now presented with dyspnea. Patient does admit to a dry cough. No fever or chills. His initial chest x-ray revealed right lung base infiltrate. A questionable small effusion was also present. Patient is currently resting in bed. He keeps falling asleep while having a conversation and therefore is very difficult to obtain accurate history. He does admit to good urine output. Denies any hematuria or dysuria. Denies use of NSAIDs. Denies any family history of renal disease. No vomiting or diarrhea. His oral intake is fair. He has underlying diastolic CHF with mild tricuspid regurgitation and pulmonary hypertension. Vital signs are stable. General: The patient appeared well nourished and normally developed. HEENT: Head exam is unremarkable. Neck is without jugular venous distension. LUNGS: Lungs are clear to auscultation and percussion. Breath sounds decreased. HEART: Rate and Rhythm are regular. First and second heart sounds normal. No murmurs, rubs or gallops. ABDOMEN: Abdominal exam reveals normal bowel sounds. Non-tender and non- distended. No evidence of peritonitis. EXTREMITITES: No clubbing, cyanosis, or edema. Past Medical History Past Medical History: Coronary Artery Disease (CAD), Chest Pain / Angina, Heart Failure, COPD, Diabetes Mellitus, Hyperlipidemia, Hypertension, Myocardial Infarction (IA), Sleep Apnea/CPAP/BIPAP Additional Past Medical History / Comment(s): MURMUR, "HEART SKIPS A BEAT", PAST ACID REFLUX, NEUROPATHY, BIPOLAR, Last Myocardial Infarction Date:: 2004 History of Any Multi-Drug Resistant Organisms: None Reported Past Surgical History: AICD, Heart Catheterization With Stent Past Anesthesia/Blood Transfusion Reactions: No Reported Reaction Date of Last Stent Placement:: 2004 Type of Cardiac Device: AICD Device Placement Date:: 09/2004 Past Psychological History: Bipolar Smoking Status: Former smoker Past Alcohol Use History: None Reported Additional Past Alcohol Use History / Comment(s): STARTED SMOKING AT AGE 19 SMOKED 1PPD THEN DECREASED TO 1 PACK EVERY 3 DAYS. Past Drug Use History: None Reported - Past Family History Father Family Medical History: Cancer Mother Family Medical History: Cancer Medications and Allergies Home Medications Medication Instructions Recorded Confirmed Type Gabapentin [Neurontin] 300 mg PO DAILY 01/05/16 06/02/17 History Insulin Glargine [Lantus] 30 units SQ BID 01/05/16 06/02/17 History amLODIPine [Norvasc] 10 mg PO DAILY 01/05/16 06/02/17 History hydrALAZINE HCL [Apresoline] 25 mg PO TID 01/05/16 06/02/17 History traZODone HCL [Desyrel] 200 mg PO HS 01/05/16 06/02/17 History Allopurinol [Zyloprim] 100 mg PO DAILY 05/21/17 06/02/17 History Carvedilol [Coreg*] 12.5 mg PO BID 05/21/17 06/02/17 History Escitalopram [Lexapro] 10 mg PO DAILY 05/21/17 06/02/17 History QUEtiapine [SEROquel] 200 mg PO HS 05/21/17 06/02/17 History cloNIDine HCL [Catapres] 0.2 mg PO TID 05/21/17 06/02/17 History Albuterol Inhaler [Ventolin Hfa 2 puff INHALATION RT-Q6H PRN #1 05/24/17 Rx Inhaler] inhalation Aspirin EC [Ecotrin Low Dose] 81 mg PO DAILY #100 tablet. 05/24/17 06/02/17 Rx Atorvastatin [Lipitor] 80 mg PO HS #30 tab 05/24/17 06/02/17 Rx Bumetanide [BUMEX] 4 mg PO BID #60 tab 05/24/17 06/02/17 Rx Insulin Aspart [NovoLOG Flexpen] 10 units SQ TID-W/MEALS #1 pen 05/24/17 Rx Ipratropium-Albuterol Nebulize 3 ml INHALATION RT-QID #120 neb 05/24/17 Rx [Duoneb 0.5 mg-3 mg/3 ml Soln] Allergies Allergy/AdvReac Type Severity Reaction Status Date / Time Penicillins Allergy Unknown Verified 06/02/17 17:00 Physical Exam Vitals: Vital Signs Temp Pulse Pulse Resp BP BP Pulse Ox 06/04/17 08:59 72 06/04/17 08:46 68 89 L 06/04/17 08:00 98.1 F 69 16 91/43 92 L 06/04/17 04:00 98.3 F 73 16 92/55 97 06/04/17 01:25 76 06/04/17 01:16 76 22 130/86 93 L 06/04/17 00:00 97.7 F 67 20 95/53 93 L 06/03/17 20:24 78 06/03/17 20:00 97.7 F 77 18 122/83 93 L 06/03/17 16:12 80 06/03/17 16:04 80 06/03/17 16:00 96.9 F L 68 18 157/88 88 L 06/03/17 12:00 98 F 70 18 148/85 93 L 06/03/17 11:54 78 06/03/17 11:42 76 Intake and Output 06/03/17 06/04/17 06/04/17 22:59 06:59 14:59 Intake Total 200 1350 100 Output Total 602 700 Balance 200 748 -600 Intake: IV 500 Sodium Chloride 0.9% 1, 500 000 ml @ 100 mls/hr IV . Q10H GARIMA Rx#:[id number] Intake, IV Titration 250 Amount Aztreonam 2 gm In Sodium 100 Chloride 0.9% 100 ml @ 100 mls/hr IVPB Q8H GARIMA Rx#:[id number] Levofloxacin 750Mg-D5w 150 Pmx 750 mg In Dextrose/ Water 1 150ml.bag @ 100 mls/hr IVPB Q24H GARIMA Rx#: [id number] Oral 200 600 100 Output: Urine 602 700 Other: Voiding Method Urinal Urinal # Voids 1 Weight 128.5 kg Results - Lab Results Most recent lab results Calcium 8.5 mg/dL (8.4-10.2) 06/04/17 06:23 Phosphorus 4.0 mg/dL (2.5-4.5) 06/02/17 16:49 Magnesium 2.0 mg/dL (1.6-2.3) 06/02/17 16:49 06/02/17 16:49 06/04/17 06:23 Assessment and Plan Plan: Assessment: #1. Nonoliguric acute kidney injury mostly prerenal. Renal function improved with IV hydration. Creatinine was 2.7 on admission and is down to 1.90 today. Urinalysis is noted to be benign. Ultrasound from earlier this month revealed no evidence of hydronephrosis. #2. Right lung base pneumonia. #3. Diastolic CHF with mild tricuspid regurgitation and pulmonary hypertension. #4. Mild volume overload. #5. Diabetes mellitus. #6. Hypertension with chronic kidney disease. Blood pressures have been low. This morning's blood pressure was 91/43. Plan: IV fluids have been discontinued. I will decrease Lasix to 40 mg IV once daily. Encouraged oral intake. Discontinue hydralazine. Avoid nephrotoxic agents and hypotensive episodes. To hold antihypertensives for systolic blood pressure less than 120. Follow-up cultures. Thank you for the consultation. I will continue to follow the patient with you during his hospital stay.
[2017-06-04] MEDS: amLODIPine 10 MG TAB PO SCH (09:34)
[2017-06-04] MEDS ORDERED: FUROSEMIDE 10 MG/ML 4 ML VIAL IV ONE (12:00)
[2017-06-04 12:18] LABS: Glucose,Whole Blood 67 mg/dL (75-99)
[2017-06-04 12:18] LABS: Glucose,Whole Blood 67 mg/dL (75-99)
[2017-06-04 12:18] LABS: Glucose,Whole Blood 94 mg/dL (75-99)
[2017-06-04] MEDS: MORPHINE SULFATE 4 MG/ML SYRINGE IVP PRN ×2 (12:19→21:33)
--- NOTE | 2017-06-04 16:33 | CDI ---
In responding to this query, please exercise your independent professional judgment. The [facility] Coding Staff and Clinical Documentation Specialists appreciate your assistance in clarifying documentation, maintaining compliance with coding guidelines, accurately documenting patients condition and capturing severity of illness. The fact that a question is asked does not imply that any particular answer is desired or expected. Communication forms are a method of clarifying documentation and are not made part of the Legal Health Record. Thank you in advance for your clarification. Last Revision, November 2016 Ari [address] [place] [address] Documentation Clarification Form Date: 06/04/2017 4:24:00 PM From: Becca Bowen RN, CCDS Admit Date: 06/02/2017 7:04:00 PM Patient Name: Leonardo Hurst Visit Number: [id number] Dr. Jayson Lu CHF is documented in the H&P and Progress Notes and requires further specificity. History/Risk Factors: CAD, CHF, COPD, HTN, [place], DOUG with CPAP, AICD, heart cath with stent Clinical Indicators: VS/Pulse OX: Temp 98.7, HR 85, RR 20, B/P 109/72, spo2 91% 4l NC 05/22/17 Echocardiogram Results: EF 55-60%, LA is markedly dilated, RV mildly enlarged, severe concentric LVH Chest X Ray: new infiltrate and atelectasis at right lung base, mild CHF Treatment: Lasix 40mg IVP QD Consults: Nephro In your professional opinion, can you please clarify the acuity and type of CHF if known? Systolic Heart Failure: Acute Chronic Acute on Chronic Diastolic Heart Failure: Acute Chronic Acute on Chronic Systolic & Diastolic Heart Failure: Acute Chronic Acute on Chronic Unable to determine Other, please specify Please document in your progress notes and discharge summary in order to capture severity of illness and risk of mortality. Include clinical findings that support your diagnosis. FYI: Press F11 to launch patient chart. URIEL
--- NOTE | 2017-06-04 16:48 | CDI ---
In responding to this query, please exercise your independent professional judgment. The [facility] Coding Staff and Clinical Documentation Specialists appreciate your assistance in clarifying documentation, maintaining compliance with coding guidelines, accurately documenting patients condition and capturing severity of illness. The fact that a question is asked does not imply that any particular answer is desired or expected. Communication forms are a method of clarifying documentation and are not made part of the Legal Health Record. Thank you in advance for your clarification. Last Revision, July 2015 Ari [address] [address] Documentation Clarification Form Date: 06/04/2017 4:36:00 PM From: Becca Bowen RN, CCDS Admit Date: 06/02/2017 7:04:00 PM Patient Name: Leonardo Hurst Visit Number: [id number] Dr. Jayson Lu Pneumonia was documented in your notes and requires further specificity. History/Risk Factors: CHF, COPD, [place], DOUG with Cpap, Clinical Indicators: WBC/Left shift: 9.5/6.4 CXR: There is evidence for new infiltrate and atelectasis at the right lung base compared to old exam. Mild heart failure cannot be excluded. " Lung/Breathing assessment: Normal lung sounds bilaterally per EC Assessment. Treatment: Antibiotics Azetronam 2gm IVPB Q 8 hrs, Levaquin 750 mg IVPB q 24 hrs changed to PO O2: 2-4L NC Breathing TX: Duoneb QID and PRN In order to capture the severity of condition, please clarify if the condition signifies and you are treating for: Aspiration Pneumonia, identify if: Due to solids or liquids Bacterial Pneumonia, specify causal organism (if known) Gram Negative Pneumonia Due to Strep Due to Staph Due to E. coli Other bacteria (specify) Viral Pneumonia, specify casual organism (if known) Unable to determine Link any associated conditions to the pneumonia: Influenza with secondary gram negative pneumonia Sepsis due to pneumonia Acute respiratory failure due to pneumonia Other, please specify Please document in your progress notes and discharge summary in order to capture severity of illness and risk of mortality. Include clinical findings that support your diagnosis. FYI: Press F11 to launch patient chart. MTDD
[2017-06-04 17:19] LABS: Glucose,Whole Blood 135 mg/dL (75-99)
[2017-06-04] MEDS ORDERED: PNEUMOCOCCAL VACC-PNEUMOVAX 23 25 MCG/0.5 ML VIAL IM ONE (18:23)
--- NOTE | 2017-06-04 20:19 | PN ---
PROGRESS NOTE DATE OF SERVICE: 06/04/2017 CHIEF COMPLAINT: Difficulty breathing. HISTORY OF PRESENT ILLNESS: This gentleman continues to complain of frequent coughing and shortness of breath. His pneumonia on x-ray is very questionable. PHYSICAL EXAM: He has decreased breath sounds with occasional rales at the bases. There are occasional rhonchi. The cardiac exam is normal. The abdomen is soft, nontender. IMPRESSION: 1. Respiratory failure. 2. ? pneumonitis. 3. Congestive heart failure. PLAN: Continue his current treatments and see if his respiratory function improves. MMODL / IJN: [id number] /
[2017-06-04 20:36] LABS: Glucose,Whole Blood 118 mg/dL (75-99)
[2017-06-04] MEDS: ATORVASTATIN 80 MG TAB PO SCH (21:32)
[2017-06-04] MEDS: traZODone HCL 100 MG TAB PO SCH (21:32)
[2017-06-04] MEDS: QUEtiapine 200 MG TAB PO SCH (21:32)
[2017-06-04] MEDS: LEVOFLOXACIN 750 MG TAB PO SCH (21:33)
[2017-06-05] MEDS: AZTREONAM 2 GM in SODIUM CHLORIDE 0.9% 100 ML IVPB SCH ×3 (03:25→21:21)
[2017-06-05 07:50] LABS: Glucose,Whole Blood 91 mg/dL (75-99)
[2017-06-05] MEDS: IPRATROPIUM-ALBUTEROL 3 ML NEB INHALATION SCH ×4 (08:04→19:50)
[2017-06-05] MEDS: amLODIPine 10 MG TAB PO SCH (08:23)
[2017-06-05] MEDS: cloNIDine HCL 0.2 MG TAB PO SCH (08:23)
[2017-06-05] MEDS: FUROSEMIDE 10 MG/ML 4 ML VIAL IV SCH (08:23)
[2017-06-05] MEDS: ESCITALOPRAM 10 MG TAB PO SCH (08:23)
[2017-06-05] MEDS: ALLOPURINOL 100 MG TAB PO SCH (08:23)
[2017-06-05] MEDS: CARVEDILOL 12.5 MG TAB PO SCH ×2 (08:23→21:13)
[2017-06-05] MEDS: ASPIRIN 81 MG PO SCH (08:23)
[2017-06-05] MEDS: GABAPENTIN 300 MG CAP PO SCH (08:24)
[2017-06-05] MEDS: INSULIN LISPRO (humaLOG) 300 UNIT/3 ML VIAL SQ SCH ×3 (08:31→18:32)
[2017-06-05] MEDS: MORPHINE SULFATE 4 MG/ML SYRINGE IVP PRN ×3 (08:38→22:52)
[2017-06-05] MEDS: INSULIN GLARGINE 100 UNIT/ML 10 ML VIAL SQ SCH ×2 (09:03→21:14)
[2017-06-05 10:30] LABS: Calcium 8.4 mg/dL (8.4-10.2); Potassium 4.6 mmol/L (3.5-5.1)
--- NOTE | 2017-06-05 10:50 | P.PN ---
Subjective Patient is seen in follow-up for acute kidney injury on chronic kidney disease. Patient has chronic kidney disease stage III secondary to cardiorenal syndrome and nephrosclerosis with baseline creatinine near 1.6-1.8. Creatinine was elevated at 2.7 on admission. It is 2.06 today. Patient presented with dyspnea. There was concern for fluid overload as well as pneumonia. He does admit to a cough with yellow sputum. Dyspnea is improved. Oral intake is fair. No vomiting or diarrhea. Hemodynamically stable. Vital signs are stable. General: The patient appeared well nourished and normally developed. HEENT: Head exam is unremarkable. Neck is without jugular venous distension. LUNGS: Lungs are clear to auscultation and percussion. Breath sounds decreased. HEART: Rate and Rhythm are regular. First and second heart sounds normal. No murmurs, rubs or gallops. ABDOMEN: Abdominal exam reveals normal bowel sounds. Non-tender and non- distended. No evidence of peritonitis. EXTREMITITES: No clubbing, cyanosis, or edema. Objective - Vital Signs Vital signs: Vital Signs Temp 96.0 F L 06/05/17 07:00 Pulse 72 06/05/17 08:16 Resp 18 06/05/17 07:00 BP 112/79 06/05/17 07:00 Pulse Ox 91 L 06/05/17 07:00 Intake & Output 06/04/17 06/05/17 06/05/17 18:59 06:59 18:59 Intake Total 100 Output Total 1100 Balance -1000 Intake: Oral 100 Output: Urine 1100 Other: Voiding Method Urinal # Voids 2 - Labs CBC & Chem 7: 06/02/17 16:49 06/05/17 09:09 Labs: Abnormal Lab Results - Last 24 Hours (Table) 06/04/17 06/04/17 06/04/17 Range/Units 11:33 11:49 17:14 Carbon Dioxide (22-30) mmol/L BUN (9-20) mg/dL Creatinine (0.66-1.25) mg/dL POC Glucose (mg/dL) 67 L 67 L 135 H (75-99) mg/dL 06/04/17 06/05/17 Range/Units 20:34 09:09 Carbon Dioxide 36 H (22-30) mmol/L BUN 24 H (9-20) mg/dL Creatinine 2.06 H (0.66-1.25) mg/dL POC Glucose (mg/dL) 118 H (75-99) mg/dL Microbiology - Last 24 Hours (Table) 06/04/17 20:31 Gram Stain - Preliminary Sputum 06/02/17 16:49 Blood Culture - Preliminary Blood No Growth after 48 hours Assessment and Plan Plan: Assessment: #1. Nonoliguric acute kidney injury mostly prerenal. Renal function improved with IV hydration. Creatinine was 2.7 on admission and 2.06 today. Urinalysis is noted to be benign. Ultrasound from earlier this month revealed no evidence of hydronephrosis. #2. Right lung base pneumonia. #3. Diastolic CHF with mild tricuspid regurgitation and pulmonary hypertension. #4. Mild volume overload. Improving. #5. Diabetes mellitus. #6. Hypertension with chronic kidney disease. Blood pressures have been low. Plan: IV fluids have been discontinued. Continue Lasix 40 mg IV once daily. Encouraged oral intake. Discontinued hydralazine. Decrease clonidine to 0.1 mg twice daily. Avoid nephrotoxic agents and hypotensive episodes. To hold antihypertensives for systolic blood pressure less than 120. Follow-up cultures.
[2017-06-05 12:26] LABS: Glucose,Whole Blood 101 mg/dL (75-99)
--- NOTE | 2017-06-05 13:02 | CDI ---
In responding to this query, please exercise your independent professional judgment. The [facility] Coding Staff and Clinical Documentation Specialists appreciate your assistance in clarifying documentation, maintaining compliance with coding guidelines, accurately documenting patients condition and capturing severity of illness. The fact that a question is asked does not imply that any particular answer is desired or expected. Communication forms are a method of clarifying documentation and are not made part of the Legal Health Record. Thank you in advance for your clarification. Last Revision, November 2016 [address] [place] [address] Documentation Clarification Form Date: 06/05/2017 12:42:00 PM From: Becca Bowen RN, CCDS Admit Date: 06/02/2017 7:04:00 PM Patient Name: Leonardo Hurst Visit Number: [id number] Dr. Jose Roman CHF is documented in the Nephrology Consult . History/Risk Factors: HTN with SHANDRA on CKD stage 3 2nd to cardiorenal syndrome Clinical Indicators: 06/05 Nephro Consult: "Diastolic CHF with mild tricuspid regurgitation and pulmonary hypertension." VS/Pulse OX: Temp 98.7, HR 105, RR 18, B/P 138/82, Spo2 97% ra Echocardiogram Results: EF 55-60% 06/03 Chest X Ray: "IMPROVING CHANGES OF CONGESTIVE HEART FAILURE." Treatment: Lasix 40mg IVP q 12 hrs then decreased to QD In your professional opinion, can you please clarify the acuity of CHF if known? Diastolic Heart Failure: Acute Chronic Acute on Chronic Unable to determine Other, please specify Please document in your progress notes and discharge summary in order to capture severity of illness and risk of mortality. Include clinical findings that support your diagnosis. FYI: Press F11 to launch patient chart. URIEL
--- NOTE | 2017-06-05 14:08 | XR ---
EXAMINATION TYPE: XR chest 1V portable DATE OF EXAM: 06/05/2017 COMPARISON: 06/03/2017 INDICATION: CHF TECHNIQUE: Single frontal view of the chest is obtained. FINDINGS: The heart size is enlarged. The pulmonary vasculature is normal. There is an infiltrate above the right diaphragm. Mild subsegmental atelectasis is likely at the left base. Pacemaker overlies left chest IMPRESSION: 1. Right lower lobe infiltrate, correlate for atelectasis or pneumonia. This is developing from prior study 2. Subsegmental atelectasis suspected at the left base. 3. Cardiomegaly
[2017-06-05] MEDS: cloNIDine HCL 0.1 MG TAB PO SCH ×2 (15:51→21:14)
[2017-06-05 17:29] LABS: Glucose,Whole Blood 105 mg/dL (75-99)
[2017-06-05] MEDS: QUEtiapine 200 MG TAB PO SCH (21:13)
[2017-06-05] MEDS: ATORVASTATIN 80 MG TAB PO SCH (21:13)
[2017-06-05] MEDS: LEVOFLOXACIN 750 MG TAB PO SCH (21:13)
[2017-06-05] MEDS: traZODone HCL 100 MG TAB PO SCH (21:13)
--- NOTE | 2017-06-05 21:15 | PN ---
PROGRESS NOTE DATE OF SERVICE: 06/05/2017 CHIEF COMPLAINT: Difficulty breathing. HISTORY OF PRESENT ILLNESS: This gentleman seems to be stable and is still a little bit short of breath. He has had no fever or chills and he has had no cough. His BUN is 24 and his creatinine was 2. PHYSICAL EXAM: VITAL SIGNS: Normal. CHEST: Clear. CARDIAC: Normal. ABDOMEN: Soft, nontender. IMPRESSION: 1. Possible pneumonitis. 2. Congestive heart failure. 3. Cardiomyopathy. 4. Renal failure. 5. Diabetes. PLAN: Continue to monitor and follow his labs and gradually increase activity. MMODL / IJN: [id number] /
[2017-06-05 21:44] LABS: Glucose,Whole Blood 88 mg/dL (75-99)
[2017-06-06] MEDS: AZTREONAM 2 GM in SODIUM CHLORIDE 0.9% 100 ML IVPB SCH ×3 (04:50→20:04)
[2017-06-06] MEDS: MORPHINE SULFATE 4 MG/ML SYRINGE IVP PRN (06:06)
[2017-06-06] MEDS: IPRATROPIUM-ALBUTEROL 3 ML NEB INHALATION SCH ×4 (07:36→20:02)
[2017-06-06 07:37] LABS: Glucose,Whole Blood 87 mg/dL (75-99)
[2017-06-06] MEDS: INSULIN LISPRO (humaLOG) 300 UNIT/3 ML VIAL SQ SCH ×3 (07:41→17:47)
[2017-06-06] MEDS: GABAPENTIN 300 MG CAP PO SCH ×2 (07:55→08:00)
[2017-06-06] MEDS: amLODIPine 10 MG TAB PO SCH (07:55)
[2017-06-06] MEDS: FUROSEMIDE 10 MG/ML 4 ML VIAL IV SCH (07:55)
[2017-06-06] MEDS: cloNIDine HCL 0.1 MG TAB PO SCH ×3 (07:56→21:22)
[2017-06-06] MEDS: ALLOPURINOL 100 MG TAB PO SCH (07:56)
[2017-06-06] MEDS: CARVEDILOL 12.5 MG TAB PO SCH ×2 (07:56→20:05)
[2017-06-06] MEDS: ESCITALOPRAM 10 MG TAB PO SCH (07:56)
[2017-06-06] MEDS: ASPIRIN 81 MG PO SCH (07:56)
--- NOTE | 2017-06-06 08:43 | P.PN ---
Subjective Patient is seen in follow-up for acute kidney injury on chronic kidney disease. Patient has chronic kidney disease stage III secondary to cardiorenal syndrome and nephrosclerosis with baseline creatinine near 1.6-1.8. Creatinine was elevated at 2.7 on admission. Down to 2.06 as of yesterday. Patient presented with dyspnea. There was concern for fluid overload as well as pneumonia. Sputum cultures positive for gram-positive as well as gram-negative organisms. He does admit to a cough with yellow sputum but is improved today. Dyspnea is improved. Oral intake is fair. No vomiting or diarrhea. Hemodynamically stable. Feels tired. Vital signs are stable. General: The patient appeared well nourished and normally developed. Appears somewhat lethargic. HEENT: Head exam is unremarkable. Neck is without jugular venous distension. LUNGS: Lungs are clear to auscultation and percussion. Breath sounds decreased. HEART: Rate and Rhythm are regular. First and second heart sounds normal. No murmurs, rubs or gallops. ABDOMEN: Abdominal exam reveals normal bowel sounds. Non-tender and non- distended. No evidence of peritonitis. EXTREMITITES: No clubbing, cyanosis, or edema. Objective - Vital Signs Vital signs: Vital Signs Temp 96.5 F L 06/06/17 07:00 Pulse 80 06/06/17 07:51 Resp 16 06/06/17 07:00 BP 114/66 06/06/17 07:00 Pulse Ox 90 L 06/06/17 07:00 Intake & Output 06/05/17 06/06/17 06/06/17 18:59 06:59 18:59 Intake Total 600 Output Total 1000 Balance -1000 600 Intake: Oral 600 Output: Urine 1000 Other: Voiding Method Urinal # Voids 1 1 - Labs CBC & Chem 7: 06/02/17 16:49 06/05/17 09:09 Labs: Abnormal Lab Results - Last 24 Hours (Table) 06/05/17 06/05/17 06/05/17 Range/Units 09:09 12:21 17:27 Carbon Dioxide 36 H (22-30) mmol/L BUN 24 H (9-20) mg/dL Creatinine 2.06 H (0.66-1.25) mg/dL POC Glucose (mg/dL) 101 H 105 H (75-99) mg/dL Microbiology - Last 24 Hours (Table) 06/02/17 16:49 Blood Culture - Preliminary Blood No Growth after 72 hours 06/04/17 20:31 Gram Stain - Preliminary Sputum Assessment and Plan Plan: Assessment: #1. Nonoliguric acute kidney injury mostly prerenal. Renal function improved with IV hydration. Creatinine was 2.7 on admission and 2.06 as of yesterday. Urinalysis is noted to be benign. Ultrasound from earlier this month revealed no evidence of hydronephrosis. #2. Right lung base pneumonia. #3. Diastolic CHF with mild tricuspid regurgitation and pulmonary hypertension. #4. Mild volume overload. Improving. #5. Diabetes mellitus. #6. Hypertension with chronic kidney disease. Blood pressures have been low. Dose of Catapres has been decreased. Plan: IV fluids have been discontinued. Continue Lasix 40 mg IV once daily. Encouraged oral intake. Discontinued hydralazine. Decreased clonidine to 0.1 mg twice daily. Avoid nephrotoxic agents and hypotensive episodes. To hold antihypertensives for systolic blood pressure less than 120. Follow-up cultures. Continue antibiotics. Check ABG. Consider pulmonology and infectious disease consultation.
[2017-06-06 10:03] LABS: Calcium 8.8 mg/dL (8.4-10.2)
[2017-06-06] MEDS: INSULIN GLARGINE 100 UNIT/ML 10 ML VIAL SQ SCH ×2 (10:04→20:08)
[2017-06-06 12:03] LABS: Glucose,Whole Blood 99 mg/dL (75-99)
[2017-06-06 13:56] LABS: ABG HCO3 39 mmol/L (21-25); ABG PCO2 87 mmHg (35-45); ABG PH 7.27 (7.35-7.45); ABG PO2 55 mmHg (83-108); ABG TCO2 42 mmol/L (19-24)
[2017-06-06 13:57] LABS: ABG Base Excess 11.7 mmol/L; ABG Oxygen Saturation 81.4 % (94-97)
[2017-06-06] MEDS ORDERED: FUROSEMIDE 250 MG in SODIUM CHLORIDE 0.9% 225 ML IVP SCH (14:30)
[2017-06-06 16:08] LABS: Anisocytosis Slight; Aty Lym Flag Slight; CH 28.2; CHCM 28.2; HCT 54.8 % (39.0-53.0); HDW 2.64; HGB 15.8 gm/dL (13.0-17.5); Hypochromasia Marked; MCH 29.1 pg (25.0-35.0); MCHC 28.9 g/dL (31.0-37.0); MCV 100.6 fL (80.0-100.0); Macrocytosis Slight; Mean Platelet Volume 9.3; RBC 5.45 m/uL (4.30-5.90); RDW 16.3 % (11.5-15.5); WBC 4.8 k/uL (3.8-10.6); WBC (Perox) 5.52
[2017-06-06 16:21] LABS: Add Differential Manual Differential
[2017-06-06 16:27] LABS: Band Neutrophils % 1 %; Manual Review Performed; Nucleated Red Blood Cells 0 /100 WBC (0-0); Total Cells Counted 100
--- NOTE | 2017-06-06 16:44 | P.CNPUL ---
History of Present Illness Consult date: 06/06/17 Requesting physician: Jayson Lu Reason for consult: dyspnea, cough, COPD, pneumonia, abnormal CXR/CT, obstructive sleep apnea Chief complaint: Lethargy, shortness of breath History of present illness: Patient is a 56-year-old black male who came in to the emergency department on 06/02/2017 with complaints of severe generalized weakness, decreased ability to walk, shortness of breath, and productive cough of small amount of yellow sputum. Patient denied fever, chills, chest pain, nausea vomiting or abdominal pain. He has past medical history of COPD, severe ischemic cardiomyopathy with the most recent echo on 05/22/2017 showing EF of 55-60%, diastolic heart failure , home oxygen at 4 L per nasal cannula, angina, diabetes mellitus, hyperlipidemia, hypertension, renal insufficiency and chronic and ongoing tobacco dependence. He has an AICD in place. He was recently hospitalized for an acute exacerbation of chronic congestive heart failure, he was discharged home on 05/24/2017. Patient also has obstructive sleep apnea for which he wears CPAP at night, but he is unsure of the settings. Patient used to reside in [place] and had recently moved to [place] and is now under the care of Dr. Lu. On admission there was no leukocytosis, d-dimer was negative at 0.46, troponin 0.050 and creatinine at 2.7. Patient was hypoxemic on 4 L oxygen per nasal cannula with O2 saturations at 82. Initial chest x-ray from 06/02/2017 revealed cardiomegaly, mild pulmonary vascular congestion, slight blunting of right costophrenic angle and evidence of a new infiltrate and atelectasis in the right lung base compared to the previous exam. Nephrology consultation was initiated for acute on chronic kidney disease. Patient was initiated on IV Lasix, IV antibiotics in the form of Azactam and Levaquin, and DuoNeb nebulized treatments. Preliminary sputum culture showed few gram-positive and gram- negative organisms. No fever, no chills. Of note patient has been complaining of chronic back pain, and pain radiating down down to his legs or which he had been receiving IV morphine. Today the patient has been noted to be increasingly lethargic and oxygen saturation are barely around 90 on 5 L per nasal cannula. The patient does not have his CPAP unit from home. Per attending ABGs were obtained and showed pH of 7.27, pCO2 is 87 and pO2 of 55 on 5 liters of oxygen. BiPAP ventilatory support was ordered and pulmonary consultation was requested at that time. Examination the patient is lethargic but arousable to verbal stimuli, answers appropriately. Denies significant sputum production at this time. Lung sounds are diminished with few expiratory crackles over posterior bases. Patient was placed on BiPAP with settings IPAP 12/APAP 5 and FiO2 of 50%. Chest x-ray room and 06/05/2017 reviewed and showed right lower lobe infiltrate, so cardiomegaly, changes consistent with congestive heart failure. Review of Systems Constitutional: Denies chills, Denies fever Eyes: denies blurred vision, denies pain Ears, nose, mouth and throat: Denies headache, Denies sore throat Cardiovascular: Reports edema, Denies chest pain, Denies shortness of breath Respiratory: Reports dyspnea, Reports home oxygen, Reports sleep apnea, Denies cough Gastrointestinal: Denies abdominal pain, Denies diarrhea, Denies nausea, Denies vomiting Genitourinary: Reports as per HPI Musculoskeletal: Reports low back pain, Denies myalgias Integumentary: Denies pruritus, Denies rash Neurological: Denies numbness, Denies weakness Psychiatric: Denies anxiety, Denies depression Endocrine: Denies fatigue, Denies weight change Past Medical History Past Medical History: Coronary Artery Disease (CAD), Chest Pain / Angina, Heart Failure, COPD, Diabetes Mellitus, Hyperlipidemia, Hypertension, Myocardial Infarction (ID), Sleep Apnea/CPAP/BIPAP Additional Past Medical History / Comment(s): MURMUR, "HEART SKIPS A BEAT", PAST ACID REFLUX, NEUROPATHY, BIPOLAR, Last Myocardial Infarction Date:: 2004 History of Any Multi-Drug Resistant Organisms: None Reported Past Surgical History: AICD, Heart Catheterization With Stent Past Anesthesia/Blood Transfusion Reactions: No Reported Reaction Date of Last Stent Placement:: 2004 Type of Cardiac Device: AICD Device Placement Date:: 09/2004 Past Psychological History: Bipolar Smoking Status: Former smoker Past Alcohol Use History: None Reported Additional Past Alcohol Use History / Comment(s): STARTED SMOKING AT AGE 19 SMOKED 1PPD THEN DECREASED TO 1 PACK EVERY 3 DAYS. Past Drug Use History: None Reported - Past Family History Father Family Medical History: Cancer Mother Family Medical History: Cancer Medications and Allergies Home Medications Medication Instructions Recorded Confirmed Type Gabapentin [Neurontin] 300 mg PO DAILY 01/05/16 06/02/17 History Insulin Glargine [Lantus] 30 units SQ BID 01/05/16 06/02/17 History amLODIPine [Norvasc] 10 mg PO DAILY 01/05/16 06/02/17 History hydrALAZINE HCL [Apresoline] 25 mg PO TID 01/05/16 06/02/17 History traZODone HCL [Desyrel] 200 mg PO HS 01/05/16 06/02/17 History Allopurinol [Zyloprim] 100 mg PO DAILY 05/21/17 06/02/17 History Carvedilol [Coreg*] 12.5 mg PO BID 05/21/17 06/02/17 History Escitalopram [Lexapro] 10 mg PO DAILY 05/21/17 06/02/17 History QUEtiapine [SEROquel] 200 mg PO HS 05/21/17 06/02/17 History cloNIDine HCL [Catapres] 0.2 mg PO TID 05/21/17 06/02/17 History Albuterol Inhaler [Ventolin Hfa 2 puff INHALATION RT-Q6H PRN #1 05/24/17 Rx Inhaler] inhalation Aspirin EC [Ecotrin Low Dose] 81 mg PO DAILY #100 tablet. 05/24/17 06/02/17 Rx Atorvastatin [Lipitor] 80 mg PO HS #30 tab 05/24/17 06/02/17 Rx Bumetanide [BUMEX] 4 mg PO BID #60 tab 05/24/17 06/02/17 Rx Insulin Aspart [NovoLOG Flexpen] 10 units SQ TID-W/MEALS #1 pen 05/24/17 Rx Ipratropium-Albuterol Nebulize 3 ml INHALATION RT-QID #120 neb 05/24/17 Rx [Duoneb 0.5 mg-3 mg/3 ml Soln] Allergies Allergy/AdvReac Type Severity Reaction Status Date / Time Penicillins Allergy Unknown Verified 06/02/17 17:00 Physical Exam Vitals: Vital Signs Temp Pulse Pulse Resp BP BP Pulse Ox 06/06/17 11:24 84 06/06/17 11:13 84 06/06/17 07:51 80 06/06/17 07:36 84 06/06/17 07:00 96.5 F L 88 16 114/66 90 L 06/05/17 23:00 97.6 F 98 20 100/62 90 L 06/05/17 20:02 76 06/05/17 19:50 78 93 L 06/05/17 15:53 72 06/05/17 15:42 76 06/05/17 15:00 96.6 F L 71 18 119/76 92 L Intake and Output 06/05/17 06/06/17 06/06/17 22:59 06:59 14:59 Intake Total 500 100 Output Total 300 500 Balance 200 100 -500 Intake: Oral 500 100 Output: Urine 300 500 Other: Voiding Method Urinal # Voids 1 1 GENERAL EXAM: Lethargic, comfortable in no apparent distress. HEAD: Normocephalic. EYES: Normal reaction of pupils, equal size. NOSE: Clear with pink turbinates. THROAT: No erythema or exudates. NECK: No masses, no JVD. CHEST: No chest wall deformity. LUNGS: Equal air entry with few crackles, but no wheeze, rhonchi or dullness. CVS: S1 and S2 normal with no audible mumurs, regular rhythm. ABDOMEN: No hepatosplenomegaly, normal bowel sounds, no guarding or rigidity. SPINE: No scoliosis or deformity SKIN: No rashes CENTRAL NERVOUS SYSTEM: No focal deficits, tone is normal in all 4 extremities. Results - Laboratory Findings CBC and BMP: 06/06/17 15:55 06/06/17 08:04 ABG ABG pH 7.27 (7.35-7.45) L 06/06/17 13:40 ABG pCO2 87 mmHg (35-45) H* 06/06/17 13:40 ABG pO2 55 mmHg (83-108) L 06/06/17 13:40 ABG O2 Saturation 81.4 % (94-97) L 06/06/17 13:40 PT/INR, D-dimer PT 12.0 sec (9.0-12.0) 06/02/17 16:49 INR 1.2 (<1.2) H 06/02/17 16:49 D-Dimer 0.46 mg/L FEU (<0.60) 06/03/17 21:51 Abnormal lab findings: Abnormal Labs 06/02/17 06/02/17 06/02/17 16:49 16:49 16:49 RBC 6.18 H Hgb 18.0 H Hct 59.9 H MCHC 30.1 L RDW 15.9 H INR ABG pH ABG pCO2 ABG pO2 ABG HCO3 ABG Total CO2 ABG O2 Saturation Potassium 5.5 H Chloride Carbon Dioxide BUN 33 H Creatinine 2.70 H Glucose 182 H POC Glucose (mg/dL) Total Creatine Kinase 40 L Troponin I 0.050 H* 06/02/17 06/02/17 06/02/17 16:49 20:02 23:11 RBC Hgb Hct MCHC RDW INR 1.2 H ABG pH ABG pCO2 ABG pO2 ABG HCO3 ABG Total CO2 ABG O2 Saturation Potassium Chloride Carbon Dioxide BUN Creatinine Glucose POC Glucose (mg/dL) 286 H 182 H Total Creatine Kinase Troponin I 06/03/17 06/03/17 06/03/17 06:09 11:54 16:39 RBC Hgb Hct MCHC RDW INR ABG pH ABG pCO2 ABG pO2 ABG HCO3 ABG Total CO2 ABG O2 Saturation Potassium Chloride Carbon Dioxide BUN Creatinine Glucose POC Glucose (mg/dL) 106 H 135 H 144 H Total Creatine Kinase Troponin I 06/03/17 06/04/17 06/04/17 21:31 06:14 06:23 RBC Hgb Hct MCHC RDW INR ABG pH ABG pCO2 ABG pO2 ABG HCO3 ABG Total CO2 ABG O2 Saturation Potassium Chloride Carbon Dioxide 37 H BUN 24 H Creatinine 1.98 H Glucose 103 H POC Glucose (mg/dL) 117 H 107 H Total Creatine Kinase Troponin I 06/04/17 06/04/17 06/04/17 11:33 11:49 17:14 RBC Hgb Hct MCHC RDW INR ABG pH ABG pCO2 ABG pO2 ABG HCO3 ABG Total CO2 ABG O2 Saturation Potassium Chloride Carbon Dioxide BUN Creatinine Glucose POC Glucose (mg/dL) 67 L 67 L 135 H Total Creatine Kinase Troponin I 06/04/17 06/05/17 06/05/17 20:34 09:09 12:21 RBC Hgb Hct MCHC RDW INR ABG pH ABG pCO2 ABG pO2 ABG HCO3 ABG Total CO2 ABG O2 Saturation Potassium Chloride Carbon Dioxide 36 H BUN 24 H Creatinine 2.06 H Glucose POC Glucose (mg/dL) 118 H 101 H Total Creatine Kinase Troponin I 06/05/17 06/06/17 06/06/17 17:27 08:04 13:40 RBC Hgb Hct MCHC RDW INR ABG pH 7.27 L ABG pCO2 87 H* ABG pO2 55 L ABG HCO3 39 H ABG Total CO2 42 H ABG O2 Saturation 81.4 L Potassium Chloride 97 L Carbon Dioxide 39 H BUN 23 H Creatinine 1.97 H Glucose POC Glucose (mg/dL) 105 H Total Creatine Kinase Troponin I - Diagnostic Findings Chest x-ray: report reviewed Assessment and Plan Plan: Assessment: #1. Acute exacerbation diastolic CHF, recent echo from 05/22/2017 showed EF 55- 60%, mild tricuspid regurg and pulmonary hypertension. #2. Acute right lower lung pneumonia, possibly gram-negative #3. Acute on chronic kidney disease, nephrology following #4. Acute hypoxic respiratory failure related to diastolic CHF and right lower lobe pneumonia #5. Acute hypercapnic respiratory failure related to history of DOUG with components of obesity/hypoventilation syndrome #6. Diabetes mellitus. #7. Hypertension. #8. Underlying COPD #9. Coronary artery disease. #10. History of severe ischemic cardiomyopathy. #11. Status post AICD placement. #12. Chronic and ongoing tobacco dependence. #13. Hyperlipidemia Plan: The patient will be transferred to the intensive care. Will be placed on BiPAP ventilatory support. We will start Lasix drip at 10 mg per hour, continue with bronchodilators and IV antibiotics. GI and DVT prophylaxis. Accurate I&O's, repeat blood work in the morning repeat chest x-ray. Monitor renal function. I performed a history & physical examination of the patient and discussed their management with my nurse practitioner, Ysabel Macias. I reviewed the nurse practitioner's note and agree with the documented findings and plan of care.
[2017-06-06 17:13] LABS: Calcium 8.4 mg/dL (8.4-10.2); Magnesium 1.8 mg/dL (1.6-2.3); Potassium 5.1 mmol/L (3.5-5.1); Total Bilirubin 0.3 mg/dL (0.2-1.3); Total Protein 5.8 g/dL (6.3-8.2)
[2017-06-06 17:24] LABS: ABG Base Excess 12.9 mmol/L; ABG HCO3 40 mmol/L (21-25); ABG Oxygen Saturation 94.9 % (94-97); ABG PCO2 83 mmHg (35-45); ABG PO2 88 mmHg (83-108); ABG TCO2 42 mmol/L (19-24)
[2017-06-06 17:32] LABS: Glucose,Whole Blood 66 mg/dL (75-99)
[2017-06-06 17:32] LABS: Glucose,Whole Blood 63 mg/dL (75-99)
[2017-06-06] MEDS: HEPARIN SODIUM,PORCINE 5,000 UNIT/ML 1 ML VIAL SQ SCH ×2 (17:47→23:55)
[2017-06-06] MEDS: PANTOPRAZOLE 40 MG/10 ML VIAL IVP SCH (17:48)
[2017-06-06 17:54] LABS: Glucose,Whole Blood 61 mg/dL (75-99)
[2017-06-06 18:18] LABS: Glucose,Whole Blood 72 mg/dL (75-99)
--- NOTE | 2017-06-06 19:09 | PN ---
PROGRESS NOTE CHIEF COMPLAINT: Pneumonitis, general debility and weakness. HISTORY OF PRESENT ILLNESS: The gentleman is difficult to arouse this morning. When awakened, he makes no complaints. PHYSICAL EXAM: His vital signs are normal. Chest is clear. Breath sounds are somewhat diminished. Cardiac exam is unremarkable. The abdomen is soft and nontender. IMPRESSION: 1. Pneumonitis. 2. Renal failure. 3. Diabetes. 4. Obesity. 5. Hypertension. 6. Lethargy. PLAN: Investigate etiology of lethargy. He is getting morphine every 4 hours around the clock and this will be stopped. His respiratory picture suggests that he is hypoventilating with a low PO2 and a high CO2. He will be placed back on BiPAP and monitored closely. MMODL / IJN: [id number] /
[2017-06-06] MEDS: ATORVASTATIN 80 MG TAB PO SCH (20:05)
[2017-06-06] MEDS: LEVOFLOXACIN 500 MG TAB PO SCH (20:08)
[2017-06-06 20:09] LABS: Glucose,Whole Blood 83 mg/dL (75-99)
[2017-06-06] MEDS: traZODone HCL 100 MG TAB PO SCH (20:09)
[2017-06-06] MEDS: QUEtiapine 200 MG TAB PO SCH (20:09)
[2017-06-07] MEDS: AZTREONAM 2 GM in SODIUM CHLORIDE 0.9% 100 ML IVPB SCH ×3 (03:22→21:14)
[2017-06-07 05:06] LABS: Anisocytosis Slight; Basophils % (A) 1 %; CHCM 29.5; Eosinophils # (A) 0.2 k/uL (0-0.7); Eosinophils % (A) 3 %; HCT 53.9 % (39.0-53.0); HDW 2.69; HGB 15.6 gm/dL (13.0-17.5); Hypochromasia Marked; Luc # (Auto) 0.16; Luc % (Auto) 3; Lymphocytes # (A) 1.2 k/uL (1.0-4.8); Lymphocytes % (A) 19 %; MCH 28.8 pg (25.0-35.0); MCV 99.2 fL (80.0-100.0); Macrocytosis Slight; Monocytes # (A) 0.6 k/uL (0-1.0); Monocytes % (A) 9 %; Neutrophils # (A) 4.2 k/uL (1.3-7.7); Neutrophils % (A) 66 %; RBC 5.44 m/uL (4.30-5.90); RDW 17.4 % (11.5-15.5); WBC 6.3 k/uL (3.8-10.6); WBC (Perox) 6.38
[2017-06-07 05:30] LABS: Calcium 8.6 mg/dL (8.4-10.2); Potassium 4.7 mmol/L (3.5-5.1); Total Bilirubin 0.4 mg/dL (0.2-1.3); Total Protein 5.5 g/dL (6.3-8.2)
[2017-06-07 06:41] LABS: Glucose,Whole Blood 67 mg/dL (75-99)
[2017-06-07 06:56] LABS: Glucose,Whole Blood 99 mg/dL (75-99)
[2017-06-07] MEDS: IPRATROPIUM-ALBUTEROL 3 ML NEB INHALATION SCH ×4 (07:11→19:49)
--- NOTE | 2017-06-07 07:21 | XR ---
EXAMINATION TYPE: XR chest 1V DATE OF EXAM: 06/07/2017 COMPARISON: 06/05/2017 HISTORY: 56 year-old male shortness of breath, follow-up TECHNIQUE: Single frontal view of the chest is obtained. FINDINGS: Left anterior chest wall AICD generator with 2 right ventricular leads. Heart remains mildly enlarged . Interstitial and vascular prominence persists but shows slight improvement. Small pleural effusions with bibasilar opacities also show interval improvement. IMPRESSION: 1. Improving CHF with residual pulmonary vascular congestion. 2. Decreased small pleural effusions with adjacent atelectasis and/or consolidation.
[2017-06-07 08:16] LABS: ABG Base Excess 12.7 mmol/L; ABG HCO3 39 mmol/L (21-25); ABG PCO2 75 mmHg (35-45); ABG PH 7.33 (7.35-7.45); ABG PO2 70 mmHg (83-108); ABG TCO2 41 mmol/L (19-24)
[2017-06-07 08:17] LABS: ABG Oxygen Saturation 91.6 % (94-97)
[2017-06-07] MEDS: INSULIN LISPRO (humaLOG) 300 UNIT/3 ML VIAL SQ SCH ×3 (08:29→19:36)
[2017-06-07] MEDS: cloNIDine HCL 0.1 MG TAB PO SCH ×2 (08:38→21:16)
[2017-06-07] MEDS: ASPIRIN 81 MG PO SCH (08:38)
[2017-06-07] MEDS: HEPARIN SODIUM,PORCINE 5,000 UNIT/ML 1 ML VIAL SQ SCH ×3 (08:38→23:34)
[2017-06-07] MEDS: CARVEDILOL 12.5 MG TAB PO SCH ×2 (08:38→21:16)
[2017-06-07] MEDS: ALLOPURINOL 100 MG TAB PO SCH (08:38)
[2017-06-07] MEDS: amLODIPine 10 MG TAB PO SCH (08:39)
[2017-06-07] MEDS: PANTOPRAZOLE 40 MG/10 ML VIAL IVP SCH (08:39)
[2017-06-07] MEDS: ESCITALOPRAM 10 MG TAB PO SCH (08:39)
[2017-06-07] MEDS: GABAPENTIN 300 MG CAP PO SCH (08:39)
[2017-06-07] MEDS: INSULIN GLARGINE 100 UNIT/ML 10 ML VIAL SQ SCH ×2 (10:15→21:30)
--- NOTE | 2017-06-07 10:56 | P.PN ---
Subjective Patient is seen in follow-up for acute kidney injury on chronic kidney disease. Patient has chronic kidney disease stage III secondary to cardiorenal syndrome and nephrosclerosis with baseline creatinine near 1.6-1.8. Creatinine was elevated at 2.7 on admission. Down to 1.9 today. Patient presented with dyspnea. There was concern for fluid overload as well as pneumonia. Sputum cultures positive for gram-positive as well as gram-negative organisms. Yesterday the patient appeared lethargic and I had ordered ABGs which revealed acute hypercapnic and hypoxic respiratory failure. He was subsequently transferred to the intensive care unit and is currently on a BiPAP. He is alert and oriented. His dyspnea has improved. He is also currently maintained on a Lasix drip and is nonoliguric. Vital signs are stable. General: The patient appeared well nourished and normally developed. Appears somewhat lethargic. HEENT: Head exam is unremarkable. Neck is without jugular venous distension. LUNGS: Lungs are clear to auscultation and percussion. Breath sounds decreased. HEART: Rate and Rhythm are regular. First and second heart sounds normal. No murmurs, rubs or gallops. ABDOMEN: Abdominal exam reveals normal bowel sounds. Non-tender and non- distended. No evidence of peritonitis. EXTREMITITES: No clubbing, cyanosis, or edema. Objective - Vital Signs Vital signs: Vital Signs Temp 98.3 F 06/07/17 08:00 Pulse 68 06/07/17 10:20 Resp 14 06/07/17 10:20 BP 117/65 06/07/17 10:20 Pulse Ox 94 L 06/07/17 10:20 Intake & Output 06/06/17 06/07/17 06/07/17 18:59 06:59 18:59 Intake Total 200 120 240 Output Total 1470 1495 375 Balance -1270 -1375 -135 Weight 144.8 kg 143.9 kg Intake: Oral 200 120 240 Output: Urine 1470 1495 375 Uretheral (Hernandez) 400 Other: Voiding Method Indwelling Catheter Indwelling Catheter Indwelling Catheter - Labs CBC & Chem 7: 06/07/17 04:31 06/07/17 04:28 Labs: Abnormal Lab Results - Last 24 Hours (Table) 06/06/17 06/06/17 06/06/17 Range/Units 13:40 15:55 15:55 Hct 54.8 H (39.0-53.0) % MCV 100.6 H (80.0-100.0) fL MCHC 28.9 L (31.0-37.0) g/dL RDW 16.3 H (11.5-15.5) % Plt Count 88 L (150-450) k/uL ABG pH 7.27 L (7.35-7.45) ABG pCO2 87 H* (35-45) mmHg ABG pO2 55 L (83-108) mmHg ABG HCO3 39 H (21-25) mmol/L ABG Total CO2 42 H (19-24) mmol/L ABG O2 Saturation 81.4 L (94-97) % Chloride 97 L (98-107) mmol/L Carbon Dioxide 36 H (22-30) mmol/L BUN 24 H (9-20) mg/dL Creatinine 1.85 H (0.66-1.25) mg/dL POC Glucose (mg/dL) (75-99) mg/dL ALT 17 L (21-72) U/L Total Protein 5.8 L (6.3-8.2) g/dL Albumin 3.0 L (3.5-5.0) g/dL 06/06/17 06/06/17 06/06/17 Range/Units 17:05 17:27 17:29 Hct (39.0-53.0) % MCV (80.0-100.0) fL MCHC (31.0-37.0) g/dL RDW (11.5-15.5) % Plt Count (150-450) k/uL ABG pH 7.30 L (7.35-7.45) ABG pCO2 83 H* (35-45) mmHg ABG pO2 (83-108) mmHg ABG HCO3 40 H* (21-25) mmol/L ABG Total CO2 42 H (19-24) mmol/L ABG O2 Saturation (94-97) % Chloride (98-107) mmol/L Carbon Dioxide (22-30) mmol/L BUN (9-20) mg/dL Creatinine (0.66-1.25) mg/dL POC Glucose (mg/dL) 66 L 63 L (75-99) mg/dL ALT (21-72) U/L Total Protein (6.3-8.2) g/dL Albumin (3.5-5.0) g/dL 06/06/17 06/06/17 06/07/17 Range/Units 17:51 18:17 04:28 Hct (39.0-53.0) % MCV (80.0-100.0) fL MCHC (31.0-37.0) g/dL RDW (11.5-15.5) % Plt Count (150-450) k/uL ABG pH (7.35-7.45) ABG pCO2 (35-45) mmHg ABG pO2 (83-108) mmHg ABG HCO3 (21-25) mmol/L ABG Total CO2 (19-24) mmol/L ABG O2 Saturation (94-97) % Chloride 96 L (98-107) mmol/L Carbon Dioxide 38 H (22-30) mmol/L BUN 26 H (9-20) mg/dL Creatinine 1.90 H (0.66-1.25) mg/dL POC Glucose (mg/dL) 61 L 72 L (75-99) mg/dL ALT (21-72) U/L Total Protein 5.5 L (6.3-8.2) g/dL Albumin 2.8 L (3.5-5.0) g/dL 06/07/17 06/07/17 06/07/17 Range/Units 04:31 06:34 08:04 Hct 53.9 H (39.0-53.0) % MCV (80.0-100.0) fL MCHC 29.0 L (31.0-37.0) g/dL RDW 17.4 H (11.5-15.5) % Plt Count 96 L (150-450) k/uL ABG pH 7.33 L (7.35-7.45) ABG pCO2 75 H* (35-45) mmHg ABG pO2 70 L (83-108) mmHg ABG HCO3 39 H (21-25) mmol/L ABG Total CO2 41 H (19-24) mmol/L ABG O2 Saturation 91.6 L (94-97) % Chloride (98-107) mmol/L Carbon Dioxide (22-30) mmol/L BUN (9-20) mg/dL Creatinine (0.66-1.25) mg/dL POC Glucose (mg/dL) 67 L (75-99) mg/dL ALT (21-72) U/L Total Protein (6.3-8.2) g/dL Albumin (3.5-5.0) g/dL Microbiology - Last 24 Hours (Table) 06/04/17 20:31 Gram Stain - Final Sputum Sputum Culture - Final 06/02/17 16:49 Blood Culture - Preliminary Blood No Growth after 96 hours Assessment and Plan Plan: Assessment: #1. Nonoliguric acute kidney injury mostly prerenal. Renal function improved with IV hydration. Creatinine was 2.7 on admission and 1.9 today. Urinalysis is noted to be benign. Ultrasound from earlier this month revealed no evidence of hydronephrosis. #2. Right lung base pneumonia. #3. Diastolic CHF with mild tricuspid regurgitation and pulmonary hypertension. #4. Volume overload. Improving. #5. Diabetes mellitus. #6. Hypertension with chronic kidney disease. Blood pressures were low. Dose of Catapres has been decreased. Plan: Discontinue Lasix drip. Start Lasix 40 mg IV twice daily. Encouraged oral intake. Discontinued hydralazine. Decreased clonidine to 0.1 mg twice daily. Avoid nephrotoxic agents and hypotensive episodes. To hold antihypertensives for systolic blood pressure less than 120. Follow-up cultures. Continue antibiotics.
[2017-06-07 12:06] LABS: Glucose,Whole Blood 92 mg/dL (75-99)
--- NOTE | 2017-06-07 13:55 | P.PN ---
Subjective Principal diagnosis: Acute hypoxic and hypercapnic respiratory failure secondary to congestive heart failure, pneumonia, and hypoventilation secondary to narcotics and sedatives. Patient is a 56-year-old black male who came in to the emergency department on 06/02/2017 with complaints of severe generalized weakness, decreased ability to walk, shortness of breath, and productive cough of small amount of yellow sputum. Patient denied fever, chills, chest pain, nausea vomiting or abdominal pain. He has past medical history of COPD, severe ischemic cardiomyopathy with the most recent echo on 05/22/2017 showing EF of 55-60%, diastolic heart failure , home oxygen at 4 L per nasal cannula, angina, diabetes mellitus, hyperlipidemia, hypertension, renal insufficiency and chronic and ongoing tobacco dependence. He has an AICD in place. He was recently hospitalized for an acute exacerbation of chronic congestive heart failure, he was discharged home on 05/24/2017. Patient also has obstructive sleep apnea for which he wears CPAP at night, but he is unsure of the settings. Patient used to reside in [place] and had recently moved to [place] and is now under the care of Dr. Lu. On admission there was no leukocytosis, d-dimer was negative at 0.46, troponin 0.050 and creatinine at 2.7. Patient was hypoxemic on 4 L oxygen per nasal cannula with O2 saturations at 82. Initial chest x-ray from 06/02/2017 revealed cardiomegaly, mild pulmonary vascular congestion, slight blunting of right costophrenic angle and evidence of a new infiltrate and atelectasis in the right lung base compared to the previous exam. Nephrology consultation was initiated for acute on chronic kidney disease. Patient was initiated on IV Lasix, IV antibiotics in the form of Azactam and Levaquin, and DuoNeb nebulized treatments. Preliminary sputum culture showed few gram-positive and gram- negative organisms. No fever, no chills. Of note patient has been complaining of chronic back pain, and pain radiating down down to his legs or which he had been receiving IV morphine. Today the patient has been noted to be increasingly lethargic and oxygen saturation are barely around 90 on 5 L per nasal cannula. The patient does not have his CPAP unit from home. Per attending ABGs were obtained and showed pH of 7.27, pCO2 is 87 and pO2 of 55 on 5 liters of oxygen. BiPAP ventilatory support was ordered and pulmonary consultation was requested at that time. Examination the patient is lethargic but arousable to verbal stimuli, answers appropriately. Denies significant sputum production at this time. Lung sounds are diminished with few expiratory crackles over posterior bases. Patient was placed on BiPAP with settings IPAP 12/APAP 5 and FiO2 of 50%. Chest x-ray room and 06/05/2017 reviewed and showed right lower lobe infiltrate, so cardiomegaly, changes consistent with congestive heart failure. Patient was reevaluated today on 06/07/2017, remains intermittently on BiPAP, his ABG still reflects relative hypoxemia and hypercapnia, chest x-ray is showing significant improvement in his interstitial edema and in his right lower lobe infiltrate. Today I went ahead and cut down on his doses of Seroquel trazodone and we will go ahead and switch his IV Lasix drip to IV push Lasix. Patient diuresed significantly over the last 12 hours, and he seems to demonstrate significant improvement clinically and based on the chest x-ray. ABG this morning on 50% FiO2 showed a pO2 of 70 pCO2 of 75 and pH of 7.33. CBC is relatively normal. Renal profile is about the same with BUN of 26 creatinine of 1.90. Discussed with the grey stock recorder on the case, and we felt it would be best to stop the Lasix drip and switch her to Lasix IV push. Objective - Vital Signs Vital signs: Vital Signs Temp 98.0 F 06/07/17 12:50 Pulse 65 06/07/17 12:50 Resp 14 06/07/17 12:50 BP 121/73 06/07/17 12:50 Pulse Ox 94 L 06/07/17 12:50 Intake & Output 06/06/17 06/07/17 06/07/17 18:59 06:59 18:59 Intake Total 200 120 240 Output Total 1470 1495 650 Balance -1270 -1375 -410 Weight 144.8 kg 143.9 kg Intake: Oral 200 120 240 Output: Urine 1470 1495 650 Uretheral (Hernandez) 400 Other: Voiding Method Indwelling Catheter Indwelling Catheter Indwelling Catheter - Exam GENERAL EXAM: Lethargic, comfortable in no apparent distress. HEAD: Normocephalic. EYES: Normal reaction of pupils, equal size. NOSE: Clear with pink turbinates. THROAT: No erythema or exudates. NECK: No masses, no JVD. CHEST: No chest wall deformity. LUNGS: Equal air entry with few crackles, but no wheeze, rhonchi or dullness. CVS: S1 and S2 normal with no audible mumurs, regular rhythm. ABDOMEN: No hepatosplenomegaly, normal bowel sounds, no guarding or rigidity. SPINE: No scoliosis or deformity SKIN: No rashes CENTRAL NERVOUS SYSTEM: No focal deficits, tone is normal in all 4 extremities. - Labs CBC & Chem 7: 06/07/17 04:31 06/07/17 04:28 Labs: Abnormal Lab Results - Last 24 Hours (Table) 06/06/17 06/06/17 06/06/17 Range/Units 13:40 15:55 15:55 Hct 54.8 H (39.0-53.0) % MCV 100.6 H (80.0-100.0) fL MCHC 28.9 L (31.0-37.0) g/dL RDW 16.3 H (11.5-15.5) % Plt Count 88 L (150-450) k/uL ABG pH 7.27 L (7.35-7.45) ABG pCO2 87 H* (35-45) mmHg ABG pO2 55 L (83-108) mmHg ABG HCO3 39 H (21-25) mmol/L ABG Total CO2 42 H (19-24) mmol/L ABG O2 Saturation 81.4 L (94-97) % Chloride 97 L (98-107) mmol/L Carbon Dioxide 36 H (22-30) mmol/L BUN 24 H (9-20) mg/dL Creatinine 1.85 H (0.66-1.25) mg/dL POC Glucose (mg/dL) (75-99) mg/dL ALT 17 L (21-72) U/L Total Protein 5.8 L (6.3-8.2) g/dL Albumin 3.0 L (3.5-5.0) g/dL 06/06/17 06/06/17 06/06/17 Range/Units 17:05 17:27 17:29 Hct (39.0-53.0) % MCV (80.0-100.0) fL MCHC (31.0-37.0) g/dL RDW (11.5-15.5) % Plt Count (150-450) k/uL ABG pH 7.30 L (7.35-7.45) ABG pCO2 83 H* (35-45) mmHg ABG pO2 (83-108) mmHg ABG HCO3 40 H* (21-25) mmol/L ABG Total CO2 42 H (19-24) mmol/L ABG O2 Saturation (94-97) % Chloride (98-107) mmol/L Carbon Dioxide (22-30) mmol/L BUN (9-20) mg/dL Creatinine (0.66-1.25) mg/dL POC Glucose (mg/dL) 66 L 63 L (75-99) mg/dL ALT (21-72) U/L Total Protein (6.3-8.2) g/dL Albumin (3.5-5.0) g/dL 06/06/17 06/06/17 06/07/17 Range/Units 17:51 18:17 04:28 Hct (39.0-53.0) % MCV (80.0-100.0) fL MCHC (31.0-37.0) g/dL RDW (11.5-15.5) % Plt Count (150-450) k/uL ABG pH (7.35-7.45) ABG pCO2 (35-45) mmHg ABG pO2 (83-108) mmHg ABG HCO3 (21-25) mmol/L ABG Total CO2 (19-24) mmol/L ABG O2 Saturation (94-97) % Chloride 96 L (98-107) mmol/L Carbon Dioxide 38 H (22-30) mmol/L BUN 26 H (9-20) mg/dL Creatinine 1.90 H (0.66-1.25) mg/dL POC Glucose (mg/dL) 61 L 72 L (75-99) mg/dL ALT (21-72) U/L Total Protein 5.5 L (6.3-8.2) g/dL Albumin 2.8 L (3.5-5.0) g/dL 06/07/17 06/07/17 06/07/17 Range/Units 04:31 06:34 08:04 Hct 53.9 H (39.0-53.0) % MCV (80.0-100.0) fL MCHC 29.0 L (31.0-37.0) g/dL RDW 17.4 H (11.5-15.5) % Plt Count 96 L (150-450) k/uL ABG pH 7.33 L (7.35-7.45) ABG pCO2 75 H* (35-45) mmHg ABG pO2 70 L (83-108) mmHg ABG HCO3 39 H (21-25) mmol/L ABG Total CO2 41 H (19-24) mmol/L ABG O2 Saturation 91.6 L (94-97) % Chloride (98-107) mmol/L Carbon Dioxide (22-30) mmol/L BUN (9-20) mg/dL Creatinine (0.66-1.25) mg/dL POC Glucose (mg/dL) 67 L (75-99) mg/dL ALT (21-72) U/L Total Protein (6.3-8.2) g/dL Albumin (3.5-5.0) g/dL Microbiology - Last 24 Hours (Table) 06/04/17 20:31 Gram Stain - Final Sputum Sputum Culture - Final 06/02/17 16:49 Blood Culture - Preliminary Blood No Growth after 96 hours Assessment and Plan Plan: #1. Acute exacerbation diastolic CHF, recent echo from 05/22/2017 showed EF 55- 60%, mild tricuspid regurg and pulmonary hypertension. #2. Acute right lower lung pneumonia, possibly gram-negative, improving with antibiotics, chest x-ray is showing some improvement today. #3. Acute on chronic kidney disease, nephrology following #4. Acute hypoxic respiratory failure related to diastolic CHF and right lower lobe pneumonia #5. Acute hypercapnic respiratory failure related to history of DOUG with components of obesity/hypoventilation syndrome, this is also compounded by the fact that the patient is on multiple narcotics and sedatives doses of which will be readjusted. #6. Diabetes mellitus. #7. Hypertension. #8. Underlying COPD #9. Coronary artery disease. #10. History of severe ischemic cardiomyopathy. #11. Status post AICD placement. #12. Chronic and ongoing tobacco dependence. #13. Hyperlipidemia Recommendation: Continue patient on BiPAP intermittently, keep the patient in the ICU for now, continue bronchodilators, diuretics, antibiotics, his trazodone dose and his Seroquel dose have been adjusted down. And the patient is not presently receiving any narcotics. We'll continue to follow. Time with Patient: Less than 30
--- NOTE | 2017-06-07 16:31 | PN ---
PROGRESS NOTE CHIEF COMPLAINT: Acute respiratory failure. HISTORY OF PRESENT ILLNESS: This gentleman is doing a little bit better. He was moved to ICU when his respirations dropped and he developed hypercarbia and hypoxemia. He is doing better today and is awake and alert. He has had no other complications or problems so far. PHYSICAL EXAM: He remains a little bit drowsy. Breath sounds are heard bilaterally but they are not quality. There are rales at the bases. Cardiac exam is unremarkable. IMPRESSION: 1. Respiratory failure. 2. Cardiomyopathy. 3. Type 2 diabetes. 4. Sleep apnea. 5. Obesity. PLAN: Continue to follow with pulmonology until he is stable to be moved out of ICU safely. MMODL / IJN: [id number] /
[2017-06-07 18:04] LABS: Glucose,Whole Blood 69 mg/dL (75-99)
[2017-06-07 18:20] LABS: Glucose,Whole Blood 64 mg/dL (75-99)
[2017-06-07 18:41] LABS: Glucose,Whole Blood 71 mg/dL (75-99)
[2017-06-07] MEDS: ATORVASTATIN 80 MG TAB PO SCH (21:15)
[2017-06-07] MEDS: FUROSEMIDE 10 MG/ML 4 ML VIAL IV SCH (21:16)
[2017-06-07] MEDS: LEVOFLOXACIN 500 MG TAB PO SCH (21:17)
[2017-06-07] MEDS: QUEtiapine 100 MG TAB PO SCH (21:18)
[2017-06-07] MEDS: traZODone HCL 50 MG TAB PO SCH (21:19)
[2017-06-08 04:46] LABS: Basophils % (A) 1 %; CH 28.2; CHCM 28.6; Eosinophils # (A) 0.2 k/uL (0-0.7); Eosinophils % (A) 3 %; HCT 52.4 % (39.0-53.0); HDW 2.53; HGB 15.5 gm/dL (13.0-17.5); Hypochromasia Marked; Luc # (Auto) 0.21; Luc % (Auto) 3; Lymphocytes # (A) 1.4 k/uL (1.0-4.8); Lymphocytes % (A) 22 %; MCH 29.4 pg (25.0-35.0); MCHC 29.6 g/dL (31.0-37.0); MCV 99.1 fL (80.0-100.0); Macrocytosis Slight; Mean Platelet Volume 9.2; Monocytes # (A) 0.6 k/uL (0-1.0); Monocytes % (A) 9 %; Neutrophils # (A) 3.9 k/uL (1.3-7.7); Neutrophils % (A) 62 %; RBC 5.29 m/uL (4.30-5.90); WBC 6.2 k/uL (3.8-10.6); WBC (Perox) 6.33
[2017-06-08] MEDS: AZTREONAM 2 GM in SODIUM CHLORIDE 0.9% 100 ML IVPB SCH ×3 (04:51→20:16)
[2017-06-08 04:54] LABS: Calcium 8.4 mg/dL (8.4-10.2); Potassium 4.4 mmol/L (3.5-5.1); Total Bilirubin 0.4 mg/dL (0.2-1.3); Total Protein 5.4 g/dL (6.3-8.2)
[2017-06-08 07:22] LABS: Glucose,Whole Blood 89 mg/dL (75-99)
--- NOTE | 2017-06-08 07:32 | XR ---
EXAMINATION TYPE: XR chest 1V DATE OF EXAM: 06/08/2017 COMPARISON: 06/08/2017 HISTORY: Congestive heart failure TECHNIQUE: Single frontal view of the chest is obtained. FINDINGS: Right basilar opacity partially obscures the right hemidiaphragm. Retrocardiac opacity per sists. Blunting of both costophrenic angles. Multilead left-sided cardiac device is seen. Improved pu lmonary vascular congestion. Cardiomegaly is again present. IMPRESSION: Improving congestive heart failure with probable trace to small pleural effusions and bi basilar airspace disease, likely atelectasis.
[2017-06-08] MEDS: IPRATROPIUM-ALBUTEROL 3 ML NEB INHALATION SCH ×4 (08:08→19:41)
[2017-06-08] MEDS: INSULIN LISPRO (humaLOG) 300 UNIT/3 ML VIAL SQ SCH ×3 (08:12→18:24)
[2017-06-08] MEDS: ALLOPURINOL 100 MG TAB PO SCH (08:39)
[2017-06-08] MEDS: GABAPENTIN 300 MG CAP PO SCH (08:39)
[2017-06-08] MEDS: amLODIPine 10 MG TAB PO SCH (08:41)
[2017-06-08] MEDS: CARVEDILOL 12.5 MG TAB PO SCH ×2 (08:42→20:17)
[2017-06-08] MEDS: cloNIDine HCL 0.1 MG TAB PO SCH ×2 (08:42→20:18)
[2017-06-08] MEDS: ESCITALOPRAM 10 MG TAB PO SCH (08:42)
[2017-06-08] MEDS: ASPIRIN 81 MG PO SCH (08:42)
[2017-06-08] MEDS: FUROSEMIDE 10 MG/ML 4 ML VIAL IV SCH ×2 (08:51→20:18)
[2017-06-08] MEDS: PANTOPRAZOLE 40 MG/10 ML VIAL IVP SCH (08:51)
[2017-06-08] MEDS: INSULIN GLARGINE 100 UNIT/ML 10 ML VIAL SQ SCH ×2 (08:52→20:26)
[2017-06-08 09:55] VITALS: BMI 39.9
[2017-06-08] MEDS: HEPARIN SODIUM,PORCINE 5,000 UNIT/ML 1 ML VIAL SQ SCH (10:24)
--- NOTE | 2017-06-08 11:07 | P.PN ---
Subjective Patient is seen in follow-up for acute kidney injury on chronic kidney disease. Patient has chronic kidney disease stage III secondary to cardiorenal syndrome and nephrosclerosis with baseline creatinine near 1.6-1.8. Creatinine was elevated at 2.7 on admission. Down to 1.76 today. Patient presented with dyspnea. There was concern for fluid overload as well as pneumonia. Sputum cultures positive for gram-positive as well as gram-negative organisms. On 06/06, the patient appeared lethargic and I had ordered ABGs which revealed acute hypercapnic and hypoxic respiratory failure. He was subsequently transferred to the intensive care unit and has been requiring a BiPAP. He is alert and oriented. His dyspnea has improved. He is currently maintained on Lasix 40 mg IV twice daily. He is nonoliguric. Denies chest pain. Vital signs are stable. General: The patient appeared well nourished and normally developed. Appears somewhat lethargic. HEENT: Head exam is unremarkable. Neck is without jugular venous distension. LUNGS: Lungs are clear to auscultation and percussion. Breath sounds decreased. HEART: Rate and Rhythm are regular. First and second heart sounds normal. No murmurs, rubs or gallops. ABDOMEN: Abdominal exam reveals normal bowel sounds. Non-tender and non- distended. No evidence of peritonitis. EXTREMITITES: No clubbing, cyanosis, or edema. Objective - Vital Signs Vital signs: Vital Signs Temp 98.5 F 06/08/17 10:00 Pulse 83 06/08/17 10:00 Resp 24 06/08/17 10:00 BP 131/67 06/08/17 10:00 Pulse Ox 95 06/08/17 10:00 Intake & Output 06/07/17 06/08/17 06/08/17 18:59 06:59 18:59 Intake Total 840 340 480 Output Total 1150 1165 325 Balance -310 -825 155 Weight 143.1 kg 143.1 kg Intake: Intake, IV Titration 100 Amount Aztreonam 2 gm In Sodium 100 Chloride 0.9% 100 ml @ 100 mls/hr IVPB Q8H [facility] Rx#:[id number] Oral 840 240 480 Output: Urine 1150 1165 325 Other: Voiding Method Indwelling Catheter Indwelling Catheter - Labs CBC & Chem 7: 06/08/17 04:14 06/08/17 04:11 Labs: Abnormal Lab Results - Last 24 Hours (Table) 06/07/17 06/07/17 06/07/17 Range/Units 18:03 18:19 18:40 MCHC (31.0-37.0) g/dL RDW (11.5-15.5) % Plt Count (150-450) k/uL Carbon Dioxide (22-30) mmol/L BUN (9-20) mg/dL Creatinine (0.66-1.25) mg/dL POC Glucose (mg/dL) 69 L 64 L 71 L (75-99) mg/dL Total Protein (6.3-8.2) g/dL Albumin (3.5-5.0) g/dL 06/08/17 06/08/17 Range/Units 04:11 04:14 MCHC 29.6 L (31.0-37.0) g/dL RDW 16.0 H (11.5-15.5) % Plt Count 85 L (150-450) k/uL Carbon Dioxide 39 H (22-30) mmol/L BUN 27 H (9-20) mg/dL Creatinine 1.76 H (0.66-1.25) mg/dL POC Glucose (mg/dL) (75-99) mg/dL Total Protein 5.4 L (6.3-8.2) g/dL Albumin 2.7 L (3.5-5.0) g/dL Microbiology - Last 24 Hours (Table) 06/02/17 16:49 Blood Culture - Preliminary Blood No Growth after 120 hours 06/04/17 20:31 Gram Stain - Final Sputum Sputum Culture - Final Assessment and Plan Plan: Assessment: #1. Nonoliguric acute kidney injury mostly prerenal. Renal function initially improved with IV hydration. Due to worsening dyspnea diuretics were started. Creatinine was 2.7 on admission and 1.76 today. Urinalysis is noted to be benign. Ultrasound from earlier this month revealed no evidence of hydronephrosis. #2. Right lung base pneumonia. #3. Diastolic CHF with mild tricuspid regurgitation and pulmonary hypertension. #4. Volume overload. Improving. #5. Diabetes mellitus. #6. Hypertension with chronic kidney disease. Blood pressures were low. Dose of Catapres has been decreased. Plan: Continue Lasix 40 mg IV twice daily. Encouraged oral intake. Avoid nephrotoxic agents and hypotensive episodes. To hold antihypertensives for systolic blood pressure less than 120. Follow-up cultures. Continue antibiotics.
[2017-06-08 13:50] LABS: Glucose,Whole Blood 93 mg/dL (75-99)
--- NOTE | 2017-06-08 16:33 | P.PN ---
Subjective Principal diagnosis: Acute hypoxic and hypercapnic respiratory failure secondary to congestive heart failure, pneumonia, and hypoventilation secondary to narcotics and sedatives. Patient is a 56-year-old black male who came in to the emergency department on 06/02/2017 with complaints of severe generalized weakness, decreased ability to walk, shortness of breath, and productive cough of small amount of yellow sputum. Patient denied fever, chills, chest pain, nausea vomiting or abdominal pain. He has past medical history of COPD, severe ischemic cardiomyopathy with the most recent echo on 05/22/2017 showing EF of 55-60%, diastolic heart failure , home oxygen at 4 L per nasal cannula, angina, diabetes mellitus, hyperlipidemia, hypertension, renal insufficiency and chronic and ongoing tobacco dependence. He has an AICD in place. He was recently hospitalized for an acute exacerbation of chronic congestive heart failure, he was discharged home on 05/24/2017. Patient also has obstructive sleep apnea for which he wears CPAP at night, but he is unsure of the settings. Patient used to reside in [place] and had recently moved to [place] and is now under the care of Dr. Lu. On admission there was no leukocytosis, d-dimer was negative at 0.46, troponin 0.050 and creatinine at 2.7. Patient was hypoxemic on 4 L oxygen per nasal cannula with O2 saturations at 82. Initial chest x-ray from 06/02/2017 revealed cardiomegaly, mild pulmonary vascular congestion, slight blunting of right costophrenic angle and evidence of a new infiltrate and atelectasis in the right lung base compared to the previous exam. Nephrology consultation was initiated for acute on chronic kidney disease. Patient was initiated on IV Lasix, IV antibiotics in the form of Azactam and Levaquin, and DuoNeb nebulized treatments. Preliminary sputum culture showed few gram-positive and gram- negative organisms. No fever, no chills. Of note patient has been complaining of chronic back pain, and pain radiating down down to his legs or which he had been receiving IV morphine. Today the patient has been noted to be increasingly lethargic and oxygen saturation are barely around 90 on 5 L per nasal cannula. The patient does not have his CPAP unit from home. Per attending ABGs were obtained and showed pH of 7.27, pCO2 is 87 and pO2 of 55 on 5 liters of oxygen. BiPAP ventilatory support was ordered and pulmonary consultation was requested at that time. Examination the patient is lethargic but arousable to verbal stimuli, answers appropriately. Denies significant sputum production at this time. Lung sounds are diminished with few expiratory crackles over posterior bases. Patient was placed on BiPAP with settings IPAP 12/APAP 5 and FiO2 of 50%. Chest x-ray room and 06/05/2017 reviewed and showed right lower lobe infiltrate, so cardiomegaly, changes consistent with congestive heart failure. Patient was reevaluated today on 06/07/2017, remains intermittently on BiPAP, his ABG still reflects relative hypoxemia and hypercapnia, chest x-ray is showing significant improvement in his interstitial edema and in his right lower lobe infiltrate. Today I went ahead and cut down on his doses of Seroquel trazodone and we will go ahead and switch his IV Lasix drip to IV push Lasix. Patient diuresed significantly over the last 12 hours, and he seems to demonstrate significant improvement clinically and based on the chest x-ray. ABG this morning on 50% FiO2 showed a pO2 of 70 pCO2 of 75 and pH of 7.33. CBC is relatively normal. Renal profile is about the same with BUN of 26 creatinine of 1.90. Discussed with the truck supervisor on the case, and we felt it would be best to stop the Lasix drip and switch her to Lasix IV push. Reevaluated today on 06/08/2017, patient is on high flow nasal cannula, off BiPAP , seems to be more awake, and more responsive today. Chest x-ray continues to show improvement in his pulmonary edema and in his right lower lobe pneumonia. CBC is relatively normal basic metabolic profile is normal however his bicarb is 39 BUN is 27 creatinine is 1.76, improving compared to his creatinine couple of days ago. And even compared to yesterday and the day before. Patient is relatively asymptomatic. Denies any specific complaints. He was already switched to Lasix IV push instead of Lasix drip. Chest x-ray as noted significantly improved. Objective - Vital Signs Vital signs: Vital Signs Temp 98.6 F 06/08/17 13:00 Pulse 91 06/08/17 15:47 Resp 20 06/08/17 15:00 BP 161/85 06/08/17 15:00 Pulse Ox 96 06/08/17 15:00 Intake & Output 06/07/17 06/08/17 06/08/17 18:59 06:59 18:59 Intake Total 840 340 700 Output Total 1150 1165 1250 Balance -310 -175 550 Weight 143.1 kg 143.1 kg Intake: Intake, IV Titration 100 100 Amount Aztreonam 2 gm In Sodium 100 100 Chloride 0.9% 100 ml @ 100 mls/hr IVPB Q8H [facility] Rx#:[id number] Oral 840 240 600 Output: Urine 1150 1165 1250 Other: Voiding Method Indwelling Catheter Indwelling Catheter Indwelling Catheter - Exam GENERAL EXAM: Alert and oriented, comfortable in no apparent distress. HEAD: Normocephalic. EYES: Normal reaction of pupils, equal size. NOSE: Clear with pink turbinates. THROAT: No erythema or exudates. NECK: No masses, no JVD. CHEST: No chest wall deformity. LUNGS: Equal air entry with few crackles, but no wheeze, rhonchi or dullness. CVS: S1 and S2 normal with no audible mumurs, regular rhythm. ABDOMEN: No hepatosplenomegaly, normal bowel sounds, no guarding or rigidity. SPINE: No scoliosis or deformity SKIN: No rashes CENTRAL NERVOUS SYSTEM: No focal deficits, tone is normal in all 4 extremities. - Labs CBC & Chem 7: 06/08/17 04:14 06/08/17 04:11 Labs: Abnormal Lab Results - Last 24 Hours (Table) 06/07/17 06/07/17 06/07/17 Range/Units 18:03 18:19 18:40 MCHC (31.0-37.0) g/dL RDW (11.5-15.5) % Plt Count (150-450) k/uL Carbon Dioxide (22-30) mmol/L BUN (9-20) mg/dL Creatinine (0.66-1.25) mg/dL POC Glucose (mg/dL) 69 L 64 L 71 L (75-99) mg/dL Total Protein (6.3-8.2) g/dL Albumin (3.5-5.0) g/dL 06/08/17 06/08/17 Range/Units 04:11 04:14 MCHC 29.6 L (31.0-37.0) g/dL RDW 16.0 H (11.5-15.5) % Plt Count 85 L (150-450) k/uL Carbon Dioxide 39 H (22-30) mmol/L BUN 27 H (9-20) mg/dL Creatinine 1.76 H (0.66-1.25) mg/dL POC Glucose (mg/dL) (75-99) mg/dL Total Protein 5.4 L (6.3-8.2) g/dL Albumin 2.7 L (3.5-5.0) g/dL Microbiology - Last 24 Hours (Table) 06/02/17 16:49 Blood Culture - Preliminary Blood No Growth after 120 hours Assessment and Plan Plan: #1. Acute exacerbation diastolic CHF, recent echo from 05/22/2017 showed EF 55- 60%, mild tricuspid regurg and pulmonary hypertension. #2. Acute right lower lung pneumonia, possibly gram-negative, improving with antibiotics, chest x-ray is showing some improvement today. #3. Acute on chronic kidney disease, nephrology following #4. Acute hypoxic respiratory failure related to diastolic CHF and right lower lobe pneumonia #5. Acute hypercapnic respiratory failure related to history of DOUG with components of obesity/hypoventilation syndrome, this is also compounded by the fact that the patient is on multiple narcotics and sedatives doses of which will be readjusted. #6. Diabetes mellitus. #7. Hypertension. #8. Underlying COPD #9. Coronary artery disease. #10. History of severe ischemic cardiomyopathy. #11. Status post AICD placement. #12. Chronic and ongoing tobacco dependence. #13. Hyperlipidemia Recommendation: Continue patient on BiPAP intermittently, transfer patient to a regular medical floor today, continue to titrate the FiO2 down, avoid narcotics and sedatives as much as possible in order to avoid worsening hypercapnia and hypoventilation. Use BiPAP freely as needed. Time with Patient: Less than 30
[2017-06-08 18:05] LABS: Glucose,Whole Blood 104 mg/dL (75-99)
[2017-06-08] MEDS: ATORVASTATIN 80 MG TAB PO SCH (20:17)
[2017-06-08] MEDS: traZODone HCL 50 MG TAB PO SCH (20:19)
[2017-06-08] MEDS: QUEtiapine 100 MG TAB PO SCH (20:19)
[2017-06-08] MEDS: LEVOFLOXACIN 500 MG TAB PO SCH (20:19)
[2017-06-08 20:21] LABS: Glucose,Whole Blood 163 mg/dL (75-99)
[2017-06-09] MEDS: AZTREONAM 2 GM in SODIUM CHLORIDE 0.9% 100 ML IVPB SCH ×3 (04:15→19:49)
[2017-06-09 07:24] LABS: Basophils % (A) 0 %; CH 28.4; CHCM 29.6; Eosinophils # (A) 0.3 k/uL (0-0.7); Eosinophils % (A) 4 %; HDW 2.48; Hypochromasia Marked; Large Platelets Flag Moderate; Luc # (Auto) 0.29; Luc % (Auto) 3; Lymphocytes # (A) 1.3 k/uL (1.0-4.8); Lymphocytes % (A) 14 %; MCH 29.1 pg (25.0-35.0); MCHC 30.3 g/dL (31.0-37.0); MCV 96.2 fL (80.0-100.0); Mean Platelet Volume 10.8; Monocytes # (A) 0.8 k/uL (0-1.0); Monocytes % (A) 9 %; Neutrophils # (A) 6.2 k/uL (1.3-7.7); Neutrophils % (A) 70 %; RDW 15.9 % (11.5-15.5); WBC 8.9 k/uL (3.8-10.6); WBC (Perox) 8.73
[2017-06-09 07:57] LABS: Calcium 8.5 mg/dL (8.4-10.2); Potassium 4.2 mmol/L (3.5-5.1); Total Bilirubin 0.6 mg/dL (0.2-1.3); Total Protein 5.9 g/dL (6.3-8.2)
[2017-06-09 08:01] LABS: Glucose,Whole Blood 108 mg/dL (75-99)
[2017-06-09] MEDS: IPRATROPIUM-ALBUTEROL 3 ML NEB INHALATION SCH ×4 (08:16→20:25)
[2017-06-09] MEDS: FUROSEMIDE 10 MG/ML 4 ML VIAL IV SCH ×2 (08:20→21:11)
[2017-06-09] MEDS: ALLOPURINOL 100 MG TAB PO SCH (08:21)
[2017-06-09] MEDS: amLODIPine 10 MG TAB PO SCH (08:21)
[2017-06-09] MEDS: INSULIN LISPRO (humaLOG) 300 UNIT/3 ML VIAL SQ SCH ×3 (08:21→18:12)
[2017-06-09] MEDS: CARVEDILOL 12.5 MG TAB PO SCH ×2 (08:21→08:23)
[2017-06-09] MEDS: ASPIRIN 81 MG PO SCH (08:21)
[2017-06-09] MEDS: GABAPENTIN 300 MG CAP PO SCH (08:23)
[2017-06-09] MEDS: ESCITALOPRAM 10 MG TAB PO SCH (08:23)
[2017-06-09] MEDS: cloNIDine HCL 0.1 MG TAB PO SCH ×2 (08:23→21:11)
[2017-06-09] MEDS: PANTOPRAZOLE 40 MG/10 ML VIAL IVP SCH (08:24)
--- NOTE | 2017-06-09 08:30 | XR ---
EXAMINATION TYPE: XR chest 1V DATE OF EXAM: 06/09/2017 HISTORY: shortness of breath. REFERENCE: Previous study dated 06/08/2017. FINDINGS: There is a bipolar pacing device in place on the left. The heart is mildly enlarged. There is vascular congestion. There is bibasilar airspace disease. This is improved slightly. There is mild interstitial change. Both CP angles are obscured. IMPRESSION: 1. FINDINGS MOST CONSISTENT WITH MILD HEART FAILURE. 2. BIBASILAR AIRSPACE DISEASE MAY REPRESENT CONFLUENT EDEMA OR PNEUMONIA.
[2017-06-09] MEDS: INSULIN GLARGINE 100 UNIT/ML 10 ML VIAL SQ SCH ×2 (09:29→21:23)
[2017-06-09 10:17] LABS: Large Platelets Present; Manual Review Performed
--- NOTE | 2017-06-09 11:51 | PN ---
PROGRESS NOTE CHIEF COMPLAINT: Pneumonitis, respiratory failure, hypercapnia and pain on the left foot. HISTORY OF PRESENT ILLNESS: This gentleman seems to be doing fairly well and is maintaining normal mentation and level of alertness. He is complaining of a lot of pain in his left foot. There is no history of any trauma. There is no redness or swelling. PHYSICAL EXAM: He is awake and alert. Chest demonstrates fairly good breath sounds both sides with occasional rales and rhonchi. Cardiac exam is normal. Abdomen is soft, protuberant. Extremities seem normal. The feet are not edematous, erythematous, but they are tender. IMPRESSION: 1. Respiratory failure. 2. Pneumonitis. 3. Congestive heart failure. 4. CO2 retention. 5. Cardiomyopathy. 6. Pain in both feet, etiology unknown. PLAN: 1. Uric acid. 2. Progress activity and he may be going to telemetry today. MMODL / IJN: [id number] /
[2017-06-09 11:57] LABS: Glucose,Whole Blood 57 mg/dL (75-99)
--- NOTE | 2017-06-09 11:57 | PN ---
PROGRESS NOTE DATE OF SERVICE: 06/09/2017 CHIEF COMPLAINT: Congestive heart failure, cardiomyopathy and respiratory failure, and pain in both feet. HISTORY OF PRESENT ILLNESS: This gentleman is complaining of more and more pain in both feet. He has had no fever or chills. There is no history of trauma. PHYSICAL EXAM: He is afebrile. His chest is fairly clear except for occasional rales. Cardiac exam is unchanged and the abdomen is slightly protuberant. The feet are warm. Pulses are good. They are tender but not particularly swollen or erythematous. IMPRESSION: 1. Acute pain in both feet, etiology unknown. 2. Question gout. 3. Cardiomyopathy. 4. Congestive heart failure. 5. Chronic obstructive pulmonary disease. 6. Diabetes. PLAN: 1. Uric acid level. 2. Continue to follow and he will be treated with Tylenol, but no narcotics. MMODL / IJN: [id number] /
--- NOTE | 2017-06-09 12:34 | P.PN ---
Subjective Principal diagnosis: Acute on chronic hypoxic and hypercapnic respiratory failure. Acute hypoxic and hypercapnic respiratory failure secondary to congestive heart failure, pneumonia, and hypoventilation secondary to narcotics and sedatives. Patient is a 56-year-old black male who came in to the emergency department on 06/02/2017 with complaints of severe generalized weakness, decreased ability to walk, shortness of breath, and productive cough of small amount of yellow sputum. Patient denied fever, chills, chest pain, nausea vomiting or abdominal pain. He has past medical history of COPD, severe ischemic cardiomyopathy with the most recent echo on 05/22/2017 showing EF of 55-60%, diastolic heart failure , home oxygen at 4 L per nasal cannula, angina, diabetes mellitus, hyperlipidemia, hypertension, renal insufficiency and chronic and ongoing tobacco dependence. He has an AICD in place. He was recently hospitalized for an acute exacerbation of chronic congestive heart failure, he was discharged home on 05/24/2017. Patient also has obstructive sleep apnea for which he wears CPAP at night, but he is unsure of the settings. Patient used to reside in [place] and had recently moved to [place] and is now under the care of Dr. Lu. On admission there was no leukocytosis, d-dimer was negative at 0.46, troponin 0.050 and creatinine at 2.7. Patient was hypoxemic on 4 L oxygen per nasal cannula with O2 saturations at 82. Initial chest x-ray from 06/02/2017 revealed cardiomegaly, mild pulmonary vascular congestion, slight blunting of right costophrenic angle and evidence of a new infiltrate and atelectasis in the right lung base compared to the previous exam. Nephrology consultation was initiated for acute on chronic kidney disease. Patient was initiated on IV Lasix, IV antibiotics in the form of Azactam and Levaquin, and DuoNeb nebulized treatments. Preliminary sputum culture showed few gram-positive and gram- negative organisms. No fever, no chills. Of note patient has been complaining of chronic back pain, and pain radiating down down to his legs or which he had been receiving IV morphine. Today the patient has been noted to be increasingly lethargic and oxygen saturation are barely around 90 on 5 L per nasal cannula. The patient does not have his CPAP unit from home. Per attending ABGs were obtained and showed pH of 7.27, pCO2 is 87 and pO2 of 55 on 5 liters of oxygen. BiPAP ventilatory support was ordered and pulmonary consultation was requested at that time. Examination the patient is lethargic but arousable to verbal stimuli, answers appropriately. Denies significant sputum production at this time. Lung sounds are diminished with few expiratory crackles over posterior bases. Patient was placed on BiPAP with settings IPAP 12/APAP 5 and FiO2 of 50%. Chest x-ray room and 06/05/2017 reviewed and showed right lower lobe infiltrate, so cardiomegaly, changes consistent with congestive heart failure. Patient was reevaluated today on 06/07/2017, remains intermittently on BiPAP, his ABG still reflects relative hypoxemia and hypercapnia, chest x-ray is showing significant improvement in his interstitial edema and in his right lower lobe infiltrate. Today I went ahead and cut down on his doses of Seroquel trazodone and we will go ahead and switch his IV Lasix drip to IV push Lasix. Patient diuresed significantly over the last 12 hours, and he seems to demonstrate significant improvement clinically and based on the chest x-ray. ABG this morning on 50% FiO2 showed a pO2 of 70 pCO2 of 75 and pH of 7.33. CBC is relatively normal. Renal profile is about the same with BUN of 26 creatinine of 1.90. Discussed with the broomcorn thresher on the case, and we felt it would be best to stop the Lasix drip and switch her to Lasix IV push. Reevaluated today on 06/08/2017, patient is on high flow nasal cannula, off BiPAP , seems to be more awake, and more responsive today. Chest x-ray continues to show improvement in his pulmonary edema and in his right lower lobe pneumonia. CBC is relatively normal basic metabolic profile is normal however his bicarb is 39 BUN is 27 creatinine is 1.76, improving compared to his creatinine couple of days ago. And even compared to yesterday and the day before. Patient is relatively asymptomatic. Denies any specific complaints. He was already switched to Lasix IV push instead of Lasix drip. Chest x-ray as noted significantly improved. The patient is seen again today 06/09/2017 in follow-up on the regular medical floor. He is awake and alert in no acute distress. He did utilize the BiPAP last evening. He is breathing better today as compared to yesterday but not quite back to his baseline. Sputum, urine and blood cultures revealed no growth. No leukocytosis. He remains afebrile. He does remain on 15 L high flow nasal cannula while not utilizing the BiPAP. He remains on antibiotics in the form of aztreonam and Levaquin. He continues to diurese and remains in a negative balance. Current Lasix 40 mg IV push every 12 hours. Objective - Vital Signs Vital signs: Vital Signs Temp 98.3 F 06/09/17 08:43 Pulse 62 06/09/17 12:21 Resp 18 06/09/17 08:43 BP 162/94 06/09/17 08:43 Pulse Ox 96 06/09/17 08:43 Intake & Output 06/08/17 06/09/17 06/09/17 18:59 06:59 18:59 Intake Total 700 180 240 Output Total 1400 2000 60 Balance -700 -1820 180 Weight 143.1 kg 134 kg Intake: Intake, IV Titration 100 Amount Aztreonam 2 gm In Sodium 100 Chloride 0.9% 100 ml @ 100 mls/hr IVPB Q8H [facility] Rx#:[id number] Oral 600 180 240 Output: Urine 1400 1999 60 Other: Voiding Method Indwelling Catheter Indwelling Catheter # Voids 1 - Exam GENERAL EXAM: Alert and oriented, comfortable in no apparent distress. HEAD: Normocephalic. EYES: Normal reaction of pupils, equal size. NOSE: Clear with pink turbinates. THROAT: No erythema or exudates. NECK: No masses, no JVD. CHEST: No chest wall deformity. LUNGS: Equal air entry with few crackles in the bilateral posterior bases, but no wheeze, rhonchi or dullness. CVS: S1 and S2 normal with no audible murmurs, regular rhythm. ABDOMEN: No hepatosplenomegaly, normal bowel sounds, no guarding or rigidity. SPINE: No scoliosis or deformity SKIN: No rashes CENTRAL NERVOUS SYSTEM: No focal deficits, tone is normal in all 4 extremities. Extremities: There is trace peripheral edema. No clubbing, no cyanosis. Peripheral pulses are intact. - Labs CBC & Chem 7: 06/09/17 07:02 06/09/17 07:02 Labs: Abnormal Lab Results - Last 24 Hours (Table) 06/08/17 06/08/17 06/09/17 Range/Units 18:03 20:20 07:02 MCHC 30.3 L (31.0-37.0) g/dL RDW 15.9 H (11.5-15.5) % Plt Count 91 L (150-450) k/uL Chloride (98-107) mmol/L Carbon Dioxide (22-30) mmol/L BUN (9-20) mg/dL Creatinine (0.66-1.25) mg/dL POC Glucose (mg/dL) 104 H 163 H (75-99) mg/dL Total Protein (6.3-8.2) g/dL Albumin (3.5-5.0) g/dL 06/09/17 06/09/17 06/09/17 Range/Units 07:02 07:33 11:30 MCHC (31.0-37.0) g/dL RDW (11.5-15.5) % Plt Count (150-450) k/uL Chloride 95 L (98-107) mmol/L Carbon Dioxide 39 H (22-30) mmol/L BUN 26 H (9-20) mg/dL Creatinine 1.61 H (0.66-1.25) mg/dL POC Glucose (mg/dL) 108 H 57 L (75-99) mg/dL Total Protein 5.9 L (6.3-8.2) g/dL Albumin 3.0 L (3.5-5.0) g/dL Microbiology - Last 24 Hours (Table) 06/02/17 16:49 Blood Culture - Final Blood No Growth after 144 hours Assessment and Plan Plan: Impression: #1. Acute exacerbation diastolic CHF, recent echo from 05/22/2017 showed EF 55- 60%, mild tricuspid regurg and pulmonary hypertension. #2. Acute right lower lung pneumonia, possibly gram-negative, improving with antibiotics, chest x-ray is showing some improvement today. #3. Acute on chronic kidney disease, nephrology following #4. Acute hypoxic respiratory failure related to diastolic CHF and right lower lobe pneumonia #5. Acute hypercapnic respiratory failure related to history of DOUG with components of obesity/hypoventilation syndrome, this is also compounded by the fact that the patient is on multiple narcotics and sedatives doses of which will be readjusted. #6. Diabetes mellitus. #7. Hypertension. #8. Underlying COPD #9. Coronary artery disease. #10. History of severe ischemic cardiomyopathy. #11. Status post AICD placement. #12. Chronic and ongoing tobacco dependence. #13. Hyperlipidemia. Plan: The patient was seen and evaluated by Dr. Gan. His chest x-ray shows slight improvement as compared to previous. He is breathing better today as compared to yesterday. We'll continue with his current treatment plan. Continue to utilize BiPAP in the evenings and during the day as needed. Continue to titrate down the FiO2 as tolerated. We'll increase his activity as tolerated. We'll continue to follow. I have completed a history and physical examination on the above patient. His lungs remain with crackles in the bilateral posterior bases. Diminished. I agree with the note as dictated by my nurse practitioner, Sil Land. We have reviewed and discussed the assessment and plan of care.
[2017-06-09] MEDS ORDERED: ACETAMINOPHEN TAB 500 MG TAB PO PRN (13:08)
--- NOTE | 2017-06-09 13:08 | P.PN ---
Subjective This is a 56-year-old male seen in consultation because of chronic kidney disease and acute kidney injury this is deemed to be from cardiorenal syndrome. He has responded very well with creatinine coming down from 2.7 on admission to 1.6 this morning with good urine output. Subjectively he is feeling better except for complaints of bilateral feet pain for the last few days. He says he is unable to stand up because of the pain. He has good appetite no fever chills no nausea vomiting diarrhea good appetite. Denies any dizziness. No problems his urine or bowel habits Objective - Vital Signs Vital signs: Vital Signs Temp 98.3 F 06/09/17 08:43 Pulse 69 06/09/17 12:32 Resp 18 06/09/17 08:43 BP 162/94 06/09/17 08:43 Pulse Ox 96 06/09/17 08:43 Intake & Output 06/08/17 06/09/17 06/09/17 18:59 06:59 18:59 Intake Total 700 180 240 Output Total 1400 2000 60 Balance -700 -1820 180 Weight 143.1 kg 134 kg Intake: Intake, IV Titration 100 Amount Aztreonam 2 gm In Sodium 100 Chloride 0.9% 100 ml @ 100 mls/hr IVPB Q8H [facility] Rx#:[id number] Oral 600 180 240 Output: Urine 1400 2000 60 Other: Voiding Method Indwelling Catheter Indwelling Catheter # Voids 1 On examination is awake alert oriented comfortable. He is on nasal cannula oxygen HEENT exam no JVP neck is supple no facial asymmetry Lungs are clear to auscultation percussion good air entry bilaterally Heart sounds are unremarkable for any murmur rub gallop Abdomen soft nontender no organomegaly status masses Extremity exam was trace edema Both feet look warm well perfused there is no evidence of any cellulitis or arthritis. Therefore the pain is not well explained. He can move both of his feet and all the toes equally well Neurologically awake alert oriented No focal motor deficit - Labs CBC & Chem 7: 06/09/17 07:02 06/09/17 07:02 Labs: Abnormal Lab Results - Last 24 Hours (Table) 06/08/17 06/08/17 06/09/17 Range/Units 18:03 20:20 07:02 MCHC 30.3 L (31.0-37.0) g/dL RDW 15.9 H (11.5-15.5) % Plt Count 91 L (150-450) k/uL Chloride (98-107) mmol/L Carbon Dioxide (22-30) mmol/L BUN (9-20) mg/dL Creatinine (0.66-1.25) mg/dL POC Glucose (mg/dL) 104 H 163 H (75-99) mg/dL Total Protein (6.3-8.2) g/dL Albumin (3.5-5.0) g/dL 06/09/17 06/09/17 06/09/17 Range/Units 07:02 07:33 11:30 MCHC (31.0-37.0) g/dL RDW (11.5-15.5) % Plt Count (150-450) k/uL Chloride 95 L (98-107) mmol/L Carbon Dioxide 39 H (22-30) mmol/L BUN 26 H (9-20) mg/dL Creatinine 1.61 H (0.66-1.25) mg/dL POC Glucose (mg/dL) 108 H 57 L (75-99) mg/dL Total Protein 5.9 L (6.3-8.2) g/dL Albumin 3.0 L (3.5-5.0) g/dL Microbiology - Last 24 Hours (Table) 06/02/17 16:49 Blood Culture - Final Blood No Growth after 144 hours Assessment and Plan Plan: Impression 1. Acute kidney injury secondary to cardiorenal responding to Lasix and improving creatinine coming down to 1.6 as of this morning on 06/09/2017 2. Mild degree of metabolic alkalosis, bicarb is 39. Etiology is diuresis 3. Edema nearly completely resolved. 4. Diabetes mellitus 5. Hypertension less than optimally controlled 6. Right lower lobe pneumonia Recommendation. 1. Expect the blood pressure. To improve with diuresis 2. No need to add more antihypertensive medications currently but it may be needed in the next 2 or 3 days if pressure does not improve. 3. Regarding his bilateral feet pain give him Tylenol plain
[2017-06-09 14:18] LABS: Glucose,Whole Blood 99 mg/dL (75-99)
[2017-06-09 17:24] LABS: Glucose,Whole Blood 122 mg/dL (75-99)
[2017-06-09] MEDS: ACETAMINOPHEN TAB 325 MG TAB PO PRN (19:53)
[2017-06-09 20:17] LABS: Glucose,Whole Blood 111 mg/dL (75-99)
[2017-06-09] MEDS: QUEtiapine 100 MG TAB PO SCH (21:11)
[2017-06-09] MEDS: LEVOFLOXACIN 500 MG TAB PO SCH (21:11)
[2017-06-09] MEDS: traZODone HCL 50 MG TAB PO SCH (21:11)
[2017-06-09] MEDS: ATORVASTATIN 80 MG TAB PO SCH (21:12)
[2017-06-10] MEDS: AZTREONAM 2 GM in SODIUM CHLORIDE 0.9% 100 ML IVPB SCH ×3 (03:55→20:26)
[2017-06-10] MEDS: ACETAMINOPHEN TAB 325 MG TAB PO PRN ×2 (04:58→20:41)
[2017-06-10] MEDS: IPRATROPIUM-ALBUTEROL 3 ML NEB INHALATION SCH ×4 (07:52→19:55)
[2017-06-10] MEDS: INSULIN LISPRO (humaLOG) 300 UNIT/3 ML VIAL SQ SCH ×3 (09:13→17:44)
[2017-06-10] MEDS: ESCITALOPRAM 10 MG TAB PO SCH (09:15)
[2017-06-10] MEDS: PANTOPRAZOLE 40 MG TABLET PO SCH (09:15)
[2017-06-10] MEDS: ALLOPURINOL 100 MG TAB PO SCH (09:15)
[2017-06-10] MEDS: amLODIPine 10 MG TAB PO SCH (09:15)
[2017-06-10] MEDS: ASPIRIN 81 MG PO SCH (09:15)
[2017-06-10] MEDS: CARVEDILOL 12.5 MG TAB PO SCH ×2 (09:15→20:26)
[2017-06-10] MEDS: cloNIDine HCL 0.1 MG TAB PO SCH ×2 (09:16→20:26)
[2017-06-10] MEDS: FUROSEMIDE 10 MG/ML 4 ML VIAL IV SCH (09:16)
[2017-06-10] MEDS: INSULIN GLARGINE 100 UNIT/ML 10 ML VIAL SQ SCH ×2 (09:17→20:41)
[2017-06-10] MEDS: GABAPENTIN 300 MG CAP PO SCH (09:17)
[2017-06-10 11:58] LABS: Glucose,Whole Blood 107 mg/dL (75-99)
--- NOTE | 2017-06-10 12:37 | P.PN ---
Subjective Principal diagnosis: Acute hypoxic and hypercapnic respiratory failure secondary to congestive heart failure, pneumonia, and hypoventilation secondary to narcotics and sedatives. Patient is a 56-year-old black male who came in to the emergency department on 06/02/2017 with complaints of severe generalized weakness, decreased ability to walk, shortness of breath, and productive cough of small amount of yellow sputum. Patient denied fever, chills, chest pain, nausea vomiting or abdominal pain. He has past medical history of COPD, severe ischemic cardiomyopathy with the most recent echo on 05/22/2017 showing EF of 55-60%, diastolic heart failure , home oxygen at 4 L per nasal cannula, angina, diabetes mellitus, hyperlipidemia, hypertension, renal insufficiency and chronic and ongoing tobacco dependence. He has an AICD in place. He was recently hospitalized for an acute exacerbation of chronic congestive heart failure, he was discharged home on 05/24/2017. Patient also has obstructive sleep apnea for which he wears CPAP at night, but he is unsure of the settings. Patient used to reside in [place] and had recently moved to [place] and is now under the care of Dr. Lu. On admission there was no leukocytosis, d-dimer was negative at 0.46, troponin 0.050 and creatinine at 2.7. Patient was hypoxemic on 4 L oxygen per nasal cannula with O2 saturations at 82. Initial chest x-ray from 06/02/2017 revealed cardiomegaly, mild pulmonary vascular congestion, slight blunting of right costophrenic angle and evidence of a new infiltrate and atelectasis in the right lung base compared to the previous exam. Nephrology consultation was initiated for acute on chronic kidney disease. Patient was initiated on IV Lasix, IV antibiotics in the form of Azactam and Levaquin, and DuoNeb nebulized treatments. Preliminary sputum culture showed few gram-positive and gram- negative organisms. No fever, no chills. Of note patient has been complaining of chronic back pain, and pain radiating down down to his legs or which he had been receiving IV morphine. Today the patient has been noted to be increasingly lethargic and oxygen saturation are barely around 90 on 5 L per nasal cannula. The patient does not have his CPAP unit from home. Per attending ABGs were obtained and showed pH of 7.27, pCO2 is 87 and pO2 of 55 on 5 liters of oxygen. BiPAP ventilatory support was ordered and pulmonary consultation was requested at that time. Examination the patient is lethargic but arousable to verbal stimuli, answers appropriately. Denies significant sputum production at this time. Lung sounds are diminished with few expiratory crackles over posterior bases. Patient was placed on BiPAP with settings IPAP 12/APAP 5 and FiO2 of 50%. Chest x-ray room and 06/05/2017 reviewed and showed right lower lobe infiltrate, so cardiomegaly, changes consistent with congestive heart failure. Patient was reevaluated today on 06/07/2017, remains intermittently on BiPAP, his ABG still reflects relative hypoxemia and hypercapnia, chest x-ray is showing significant improvement in his interstitial edema and in his right lower lobe infiltrate. Today I went ahead and cut down on his doses of Seroquel trazodone and we will go ahead and switch his IV Lasix drip to IV push Lasix. Patient diuresed significantly over the last 12 hours, and he seems to demonstrate significant improvement clinically and based on the chest x-ray. ABG this morning on 50% FiO2 showed a pO2 of 70 pCO2 of 75 and pH of 7.33. CBC is relatively normal. Renal profile is about the same with BUN of 26 creatinine of 1.90. Discussed with the import coordinator on the case, and we felt it would be best to stop the Lasix drip and switch her to Lasix IV push. Reevaluated today on 06/08/2017, patient is on high flow nasal cannula, off BiPAP , seems to be more awake, and more responsive today. Chest x-ray continues to show improvement in his pulmonary edema and in his right lower lobe pneumonia. CBC is relatively normal basic metabolic profile is normal however his bicarb is 39 BUN is 27 creatinine is 1.76, improving compared to his creatinine couple of days ago. And even compared to yesterday and the day before. Patient is relatively asymptomatic. Denies any specific complaints. He was already switched to Lasix IV push instead of Lasix drip. Chest x-ray as noted significantly improved. Reevaluated today on 06/10/2017, patient seems to be the best he has been over the last few days. He is more awake, he is alert, oriented, and he is not even on oxygen, seems to be doing great. Relatively asymptomatic. No cough no wheezing no shortness of breath. Patient tells me that he feels great today. And he is even ambulating to the bathroom. On his own. Labs were reviewed relatively normal CBC noted. Basic metabolic profile is normal except for bicarb of 39 suggestive of chronic hypercapnic respiratory failure. Renal profile seems to be improving, BUN is 26 creatinine is 1.61. Objective - Vital Signs Vital signs: Vital Signs Temp 97.7 F 06/09/17 23:24 Pulse 78 06/10/17 08:05 Resp 16 06/10/17 08:00 BP 144/86 06/09/17 23:24 Pulse Ox 95 06/09/17 23:24 Intake & Output 06/09/17 06/10/17 06/10/17 18:59 06:59 18:59 Intake Total 240 590 Output Total 180 1650 200 Balance 60 -1060 -200 Weight 133.5 kg Intake: Oral 240 590 Output: Urine 180 1650 200 Other: Voiding Method Urinal Urinal # Voids 1 # Bowel Movements 1 - Exam GENERAL EXAM: Alert and oriented, comfortable in no apparent distress. HEAD: Normocephalic. EYES: Normal reaction of pupils, equal size. NOSE: Clear with pink turbinates. THROAT: No erythema or exudates. NECK: No masses, no JVD. CHEST: No chest wall deformity. LUNGS: Equal air entry with few crackles, but no wheeze, rhonchi or dullness. CVS: S1 and S2 normal with no audible mumurs, regular rhythm. ABDOMEN: No hepatosplenomegaly, normal bowel sounds, no guarding or rigidity. SPINE: No scoliosis or deformity SKIN: No rashes CENTRAL NERVOUS SYSTEM: No focal deficits, tone is normal in all 4 extremities. - Labs CBC & Chem 7: 06/09/17 07:02 06/09/17 07:02 Labs: Abnormal Lab Results - Last 24 Hours (Table) 06/09/17 06/09/17 06/10/17 Range/Units 17:14 20:16 11:55 POC Glucose (mg/dL) 122 H 111 H 107 H (75-99) mg/dL Assessment and Plan Plan: #1. Acute exacerbation diastolic CHF, recent echo from 05/22/2017 showed EF 55- 60%, mild tricuspid regurg and pulmonary hypertension. #2. Acute right lower lung pneumonia, possibly gram-negative, improving with antibiotics, chest x-ray is showing some improvement today. #3. Acute on chronic kidney disease, nephrology following #4. Acute hypoxic respiratory failure related to diastolic CHF and right lower lobe pneumonia #5. Acute hypercapnic respiratory failure related to history of DOUG with components of obesity/hypoventilation syndrome, this is also compounded by the fact that the patient is on multiple narcotics and sedatives doses of which will be readjusted. #6. Diabetes mellitus. #7. Hypertension. #8. Underlying COPD #9. Coronary artery disease. #10. History of severe ischemic cardiomyopathy. #11. Status post AICD placement. #12. Chronic and ongoing tobacco dependence. #13. Hyperlipidemia. Recommendation: Continue present treatment plan, continue BiPAP as needed, patient does have oxygen at home, he has a BiPAP machine at home, I believe the patient could be considered for possible discharge planning in the next 24 hours. We will order repeat chest x-ray in a.m. Time with Patient: Less than 30
--- NOTE | 2017-06-10 14:11 | P.PN ---
Subjective This is a 56-year-old male seen in consultation because of chronic kidney disease and acute kidney injury this is deemed to be from cardiorenal syndrome. He has responded very well with creatinine coming down from 2.7 on admission to 1.6 yesterday morning. Today he continues to have good urine output feeling much better. He had some bilateral feet pain which is improved now he was given some plan Tylenol. Continues to make large amounts of urine, 3400 mL. Currently on Lasix 40 mg IV every 12. He says he is unable to stand up because of the pain. He has good appetite no fever chills no nausea vomiting diarrhea good appetite. Denies any dizziness. No problems his urine or bowel habits Objective - Vital Signs Vital signs: Vital Signs Temp 97.7 F 06/09/17 23:24 Pulse 78 06/10/17 08:05 Resp 16 06/10/17 08:00 BP 150/77 06/10/17 13:40 Pulse Ox 95 06/09/17 23:24 Intake & Output 06/09/17 06/10/17 06/10/17 18:59 06:59 18:59 Intake Total 240 590 Output Total 180 1650 200 Balance 60 -1060 -200 Weight 133.5 kg Intake: Oral 240 590 Output: Urine 180 1650 200 Other: Voiding Method Urinal Urinal # Voids 1 # Bowel Movements 1 On examination is awake alert oriented comfortable HEENT exam no JVP neck is supple no facial asymmetry Lungs clear to auscultation fair air entry bilaterally no dullness percussion Heart sounds are unremarkable for any murmur rub gallop Abdomen soft nontender no organomegaly status masses Extremity exam reveals trace edema Neurologically awake alert oriented. No focal motor deficit - Labs CBC & Chem 7: 06/09/17 07:02 06/09/17 07:02 Labs: Abnormal Lab Results - Last 24 Hours (Table) 06/09/17 06/09/17 06/10/17 Range/Units 17:14 20:16 11:55 POC Glucose (mg/dL) 122 H 111 H 107 H (75-99) mg/dL Assessment and Plan Plan: Impression 1. Acute kidney injury secondary to cardiorenal responding to Lasix and improving creatinine coming down to 1.6 on 06/09/2017 2. Mild degree of metabolic alkalosis, bicarb is 39. Etiology is diuresis 3. Edema minimal to trace, nearly completely resolved. 4. Diabetes mellitus 5. Hypertension less than optimally controlled 6. Right lower lobe pneumonia Recommendation. 1. Expect the blood pressure To improve with diuresis 2. As amlodipine is known to cause edema suggest reduce the dose and add lisinopril 5 mg a day. 3. Watch potassium in the past she has had one potassium slightly high when his creatinine was 2.7 therefore he should be able to handle lisinopril. 4. We'll change his IV Lasix to by mouth Lasix. Maintain 40 twice a day by mouth
[2017-06-10] MEDS: FUROSEMIDE 40 MG TAB PO SCH (17:16)
[2017-06-10 17:39] LABS: Glucose,Whole Blood 110 mg/dL (75-99)
[2017-06-10] MEDS: QUEtiapine 100 MG TAB PO SCH (20:26)
[2017-06-10] MEDS: LEVOFLOXACIN 500 MG TAB PO SCH (20:26)
[2017-06-10] MEDS: traZODone HCL 50 MG TAB PO SCH (20:26)
[2017-06-10] MEDS: ATORVASTATIN 80 MG TAB PO SCH (20:26)
[2017-06-11] MEDS: AZTREONAM 2 GM in SODIUM CHLORIDE 0.9% 100 ML IVPB SCH ×3 (05:21→20:43)
[2017-06-11 07:06] LABS: Glucose,Whole Blood 157 mg/dL (75-99)
[2017-06-11 07:17] LABS: Glucose,Whole Blood 91 mg/dL (75-99)
--- NOTE | 2017-06-11 07:32 | XR ---
EXAMINATION TYPE: XR chest 2V DATE OF EXAM: 06/11/2017 COMPARISON: Chest x-ray from 2 days ago. HISTORY: Cough and shortness of breath. TECHNIQUE: Frontal and lateral views of the chest are obtained. FINDINGS: There is cardiomegaly with dual lead pacemaker/AICD. There is persistent right basilar opa city. There is persistent small right pleural effusion seen on lateral view. Left lung remains clear. The osseous structures are intact. IMPRESSION: Cardiomegaly with persistent right basilar atelectasis and/or infiltrate an small right pleural effusion. No new infiltrate is seen.
[2017-06-11] MEDS: IPRATROPIUM-ALBUTEROL 3 ML NEB INHALATION SCH ×4 (08:40→20:09)
[2017-06-11] MEDS: INSULIN LISPRO (humaLOG) 300 UNIT/3 ML VIAL SQ SCH ×3 (09:16→18:35)
[2017-06-11] MEDS: CARVEDILOL 12.5 MG TAB PO SCH ×2 (09:22→20:44)
[2017-06-11] MEDS: FUROSEMIDE 40 MG TAB PO SCH ×2 (09:22→18:36)
[2017-06-11] MEDS: amLODIPine 5 MG TAB PO SCH (09:22)
[2017-06-11] MEDS: cloNIDine HCL 0.1 MG TAB PO SCH ×2 (09:22→21:00)
[2017-06-11] MEDS: GABAPENTIN 300 MG CAP PO SCH (09:22)
[2017-06-11] MEDS: LISINOPRIL 5 MG TAB PO SCH (09:22)
[2017-06-11] MEDS: ASPIRIN 81 MG PO SCH (09:22)
[2017-06-11] MEDS: ESCITALOPRAM 10 MG TAB PO SCH (09:22)
[2017-06-11] MEDS: PANTOPRAZOLE 40 MG TABLET PO SCH (09:22)
[2017-06-11] MEDS: ALLOPURINOL 100 MG TAB PO SCH (09:22)
[2017-06-11] MEDS: ACETAMINOPHEN TAB 325 MG TAB PO PRN ×2 (09:29→20:55)
[2017-06-11 12:07] LABS: Glucose,Whole Blood 113 mg/dL (75-99)
--- NOTE | 2017-06-11 14:29 | P.PN ---
Subjective Principal diagnosis: Acute hypoxic and hypercapnic respiratory failure secondary to congestive heart failure, pneumonia, and hypoventilation syndrome. Acute hypoxic and hypercapnic respiratory failure secondary to congestive heart failure, pneumonia, and hypoventilation secondary to narcotics and sedatives. Patient is a 56-year-old black male who came in to the emergency department on 06/02/2017 with complaints of severe generalized weakness, decreased ability to walk, shortness of breath, and productive cough of small amount of yellow sputum. Patient denied fever, chills, chest pain, nausea vomiting or abdominal pain. He has past medical history of COPD, severe ischemic cardiomyopathy with the most recent echo on 05/22/2017 showing EF of 55-60%, diastolic heart failure , home oxygen at 4 L per nasal cannula, angina, diabetes mellitus, hyperlipidemia, hypertension, renal insufficiency and chronic and ongoing tobacco dependence. He has an AICD in place. He was recently hospitalized for an acute exacerbation of chronic congestive heart failure, he was discharged home on 05/24/2017. Patient also has obstructive sleep apnea for which he wears CPAP at night, but he is unsure of the settings. Patient used to reside in [place] and had recently moved to [place] and is now under the care of Dr. Lu. On admission there was no leukocytosis, d-dimer was negative at 0.46, troponin 0.050 and creatinine at 2.7. Patient was hypoxemic on 4 L oxygen per nasal cannula with O2 saturations at 82. Initial chest x-ray from 06/02/2017 revealed cardiomegaly, mild pulmonary vascular congestion, slight blunting of right costophrenic angle and evidence of a new infiltrate and atelectasis in the right lung base compared to the previous exam. Nephrology consultation was initiated for acute on chronic kidney disease. Patient was initiated on IV Lasix, IV antibiotics in the form of Azactam and Levaquin, and DuoNeb nebulized treatments. Preliminary sputum culture showed few gram-positive and gram- negative organisms. No fever, no chills. Of note patient has been complaining of chronic back pain, and pain radiating down down to his legs or which he had been receiving IV morphine. Today the patient has been noted to be increasingly lethargic and oxygen saturation are barely around 90 on 5 L per nasal cannula. The patient does not have his CPAP unit from home. Per attending ABGs were obtained and showed pH of 7.27, pCO2 is 87 and pO2 of 55 on 5 liters of oxygen. BiPAP ventilatory support was ordered and pulmonary consultation was requested at that time. Examination the patient is lethargic but arousable to verbal stimuli, answers appropriately. Denies significant sputum production at this time. Lung sounds are diminished with few expiratory crackles over posterior bases. Patient was placed on BiPAP with settings IPAP 12/APAP 5 and FiO2 of 50%. Chest x-ray room and 06/05/2017 reviewed and showed right lower lobe infiltrate, so cardiomegaly, changes consistent with congestive heart failure. Patient was reevaluated today on 06/07/2017, remains intermittently on BiPAP, his ABG still reflects relative hypoxemia and hypercapnia, chest x-ray is showing significant improvement in his interstitial edema and in his right lower lobe infiltrate. Today I went ahead and cut down on his doses of Seroquel trazodone and we will go ahead and switch his IV Lasix drip to IV push Lasix. Patient diuresed significantly over the last 12 hours, and he seems to demonstrate significant improvement clinically and based on the chest x-ray. ABG this morning on 50% FiO2 showed a pO2 of 70 pCO2 of 75 and pH of 7.33. CBC is relatively normal. Renal profile is about the same with BUN of 26 creatinine of 1.90. Discussed with the supervisor pyrotechnic loading on the case, and we felt it would be best to stop the Lasix drip and switch her to Lasix IV push. Reevaluated today on 06/08/2017, patient is on high flow nasal cannula, off BiPAP , seems to be more awake, and more responsive today. Chest x-ray continues to show improvement in his pulmonary edema and in his right lower lobe pneumonia. CBC is relatively normal basic metabolic profile is normal however his bicarb is 39 BUN is 27 creatinine is 1.76, improving compared to his creatinine couple of days ago. And even compared to yesterday and the day before. Patient is relatively asymptomatic. Denies any specific complaints. He was already switched to Lasix IV push instead of Lasix drip. Chest x-ray as noted significantly improved. Reevaluated today on 06/10/2017, patient seems to be the best he has been over the last few days. He is more awake, he is alert, oriented, and he is not even on oxygen, seems to be doing great. Relatively asymptomatic. No cough no wheezing no shortness of breath. Patient tells me that he feels great today. And he is even ambulating to the bathroom. On his own. Labs were reviewed relatively normal CBC noted. Basic metabolic profile is normal except for bicarb of 39 suggestive of chronic hypercapnic respiratory failure. Renal profile seems to be improving, BUN is 26 creatinine is 1.61. On 06/11/2017 patient seen in follow-up. Awake alert, in no acute distress. He denies chest congestion, denies wheezing or shortness of breath. No febrile episodes last night. She is on 15 L of oxygen per high flow nasal cannula, has been wearing a BiPAP and bedtime. On examination patient is resting in bed, signs of respiratory distress. Lung sounds are clear diminished at the bases. No wheezing, no rhonchi no rales. Objective - Vital Signs Vital signs: Vital Signs Temp 98.4 F 06/11/17 07:54 Pulse 92 06/11/17 08:53 Resp 20 06/11/17 07:54 BP 133/78 06/11/17 07:54 Pulse Ox 100 06/11/17 07:54 Intake & Output 06/10/17 06/11/17 06/11/17 18:59 06:59 18:59 Intake Total 1370 Output Total 400 1700 Balance -400 -330 Weight 133 kg Intake: Oral 1370 Output: Urine 400 1700 Other: Voiding Method Urinal Urinal # Voids 1 1 # Bowel Movements 1 - Exam Exam GENERAL EXAM: Alert and oriented, comfortable in no apparent distress. HEAD: Normocephalic. EYES: Normal reaction of pupils, equal size. NOSE: Clear with pink turbinates. THROAT: No erythema or exudates. NECK: No masses, no JVD. CHEST: No chest wall deformity. LUNGS: Equal air entry with no rales, but no wheeze, rhonchi or dullness. CVS: S1 and S2 normal with no audible mumurs, regular rhythm. ABDOMEN: No hepatosplenomegaly, normal bowel sounds, no guarding or rigidity. SPINE: No scoliosis or deformity SKIN: No rashes CENTRAL NERVOUS SYSTEM: No focal deficits, tone is normal in all 4 extremities - Labs CBC & Chem 7: 06/09/17 07:02 06/09/17 07:02 Labs: Abnormal Lab Results - Last 24 Hours (Table) 06/10/17 06/11/17 06/11/17 Range/Units 17:36 07:01 12:01 POC Glucose (mg/dL) 110 H 157 H 113 H (75-99) mg/dL Assessment and Plan Plan: Assessment: #1. Acute exacerbation diastolic CHF, recent echo from 05/22/2017 showed EF 55- 60%, mild tricuspid regurg and pulmonary hypertension. #2. Acute right lower lung pneumonia, possibly gram-negative #3. Acute on chronic kidney disease, nephrology following #4. Acute hypoxic respiratory failure related to diastolic CHF and right lower lobe pneumonia #5. Acute hypercapnic respiratory failure related to history of DOUG with components of obesity/hypoventilation syndrome #6. Diabetes mellitus. #7. Hypertension. #8. Underlying COPD #9. Coronary artery disease. #10. History of severe ischemic cardiomyopathy. #11. Status post AICD placement. #12. Chronic and ongoing tobacco dependence. #13. Hyperlipidemia Plan: A present treatment plan, continue BiPAP as needed and at bedtime. Continue weaning oxygen. Increase activity as tolerated patient could be considered for discharge in the next 24 hours. We'll repeat blood work in the morning, check renal function I performed a history & physical examination of the patient and discussed their management with my nurse practitioner, Ysabel Macias. I reviewed the nurse practitioner's note and agree with the documented findings and plan of care. Time with Patient: Less than 30
[2017-06-11 14:57] LABS: Calcium 8.5 mg/dL (8.4-10.2)
[2017-06-11 17:23] LABS: Glucose,Whole Blood 129 mg/dL (75-99)
--- NOTE | 2017-06-11 17:50 | PN ---
PROGRESS NOTE Patient is seen for followup for acute kidney injury on top of chronic kidney disease. He was admitted with CHF, currently being diuresed. His Lasix is changed to p.o. Renal function has been improving, with serum creatinine staying at about 1.6 for the last couple of days. PHYSICAL EXAMINATION: Patient is comfortable. Blood pressure is 116/73, heart rate 86 per minute. He is afebrile. EXAMINATION OF THE HEART: S1, S2. EXAMINATION OF LUNGS: Decreased breath sounds at the bases. Bilateral basal crackles are heard. ABDOMEN: Soft, obese. Examination of lower extremities shows trace edema bilaterally. [employer]TR[employer] exam is grossly intact. LABS: Sodium 140, potassium 4.0, BUN 33, serum creatinine 1.6. ASSESSMENT: 1. Acute kidney injury secondary to cardiorenal syndrome, currently improved. 2. Congestive heart failure, fluid overload, status post diuresis. Patient remains with some basal crackles. He wants to go home today. I have advised him that he will need close followup as outpatient. 3. History of severe cardiomyopathy. 4. Chronic kidney disease. Previous creatinine has been about 1.6 to 1.7 mg/dL. Etiology is like nephrosclerosis. His UA has been completely benign. MMODL / IJN: [id number] /
--- NOTE | 2017-06-11 19:26 | PN ---
PROGRESS NOTE DATE OF SERVICE: 06/10/2017 CHIEF COMPLAINT: Respiratory failure, pneumonitis, CHF, COPD and pain in the feet. HISTORY OF PRESENT ILLNESS: This gentleman is complaining of quite a bit of discomfort in both feet. The etiology for this is unclear. Sugars have also been dropping or coming down on insulin. PHYSICAL EXAM: Chest demonstrates wheezes and rales throughout. He has coarse rhonchi as well. Cardiac exam is normal. The abdomen is soft, nontender. Feet seem to be fairly normal without redness or swelling. Pulses are adequate. IMPRESSION: 1. Pneumonitis. 2. Congestive heart failure. 3. Cardiomyopathy. 4. Diabetes. 5. Renal failure. 6. Pain in both feet. PLAN: Continue efforts to control his diabetes and wait for further recommendations from Cardiology relative to discharge. MMODL / IJN: [id number] /
--- NOTE | 2017-06-11 19:35 | PN ---
PROGRESS NOTE CHIEF COMPLAINT: Uncontrolled diabetes. HISTORY OF PRESENT ILLNESS: This gentleman is doing a little bit better. Sugars are under improved control. Feet are bothering him less. It is expected that he may be going home in the next day or 2. PHYSICAL EXAM: CHEST: Clear. Cardiac exam is normal. Abdomen soft and nontender. IMPRESSION: 1. Congestive heart failure. 2. Pneumonitis. 3. Renal failure. 4. Diabetes. 5. Pain in the feet, etiology unknown. PLAN: Probably home in the next day or 2, pending recommendations from Cardiology. MMODL / IJN: [id number] /
[2017-06-11] MEDS: LEVOFLOXACIN 500 MG TAB PO SCH (20:43)
[2017-06-11] MEDS: QUEtiapine 100 MG TAB PO SCH (20:44)
[2017-06-11] MEDS: ATORVASTATIN 80 MG TAB PO SCH (20:44)
[2017-06-11] MEDS: traZODone HCL 50 MG TAB PO SCH (20:44)
[2017-06-11] MEDS: INSULIN GLARGINE 100 UNIT/ML 10 ML VIAL SQ SCH (21:00)
[2017-06-12 07:25] LABS: Glucose,Whole Blood 110 mg/dL (75-99)
[2017-06-12] MEDS: INSULIN LISPRO (humaLOG) 300 UNIT/3 ML VIAL SQ SCH ×2 (07:46→13:09)
[2017-06-12] MEDS: FUROSEMIDE 40 MG TAB PO SCH (07:47)
[2017-06-12] MEDS: ASPIRIN 81 MG PO SCH (07:48)
[2017-06-12] MEDS: CARVEDILOL 12.5 MG TAB PO SCH (07:48)
[2017-06-12] MEDS: ESCITALOPRAM 10 MG TAB PO SCH (07:48)
[2017-06-12] MEDS: GABAPENTIN 300 MG CAP PO SCH (07:48)
[2017-06-12] MEDS: PANTOPRAZOLE 40 MG TABLET PO SCH (07:48)
[2017-06-12] MEDS: ALLOPURINOL 100 MG TAB PO SCH (07:49)
[2017-06-12] MEDS: LISINOPRIL 5 MG TAB PO SCH (07:49)
[2017-06-12] MEDS: amLODIPine 5 MG TAB PO SCH (07:49)
[2017-06-12] MEDS: cloNIDine HCL 0.1 MG TAB PO SCH (07:50)
[2017-06-12] MEDS: IPRATROPIUM-ALBUTEROL 3 ML NEB INHALATION SCH ×3 (08:07→15:30)
[2017-06-12 08:26] LABS: Calcium 8.8 mg/dL (8.4-10.2); Potassium 3.8 mmol/L (3.5-5.1); Total Bilirubin 0.4 mg/dL (0.2-1.3); Total Protein 6.3 g/dL (6.3-8.2)
[2017-06-12 08:29] LABS: Aty Lym Flag Slight; CH 28.1; CHCM 29.1; HCT 52.4 % (39.0-53.0); HDW 2.56; HGB 15.5 gm/dL (13.0-17.5); Hypochromasia Marked; Large Platelets Flag Marked; MCH 28.7 pg (25.0-35.0); MCHC 29.5 g/dL (31.0-37.0); MCV 97.1 fL (80.0-100.0); Macrocytosis Slight; Mean Platelet Volume 11.3; WBC 6.4 k/uL (3.8-10.6); WBC (Perox) 6.11
[2017-06-12 10:14] LABS: Add Differential Manual Differential
[2017-06-12 10:15] LABS: Nucleated Red Blood Cells 0 /100 WBC (0-0); Total Cells Counted 100
[2017-06-12 10:17] LABS: Large Platelets Present
[2017-06-12 11:16] VITALS: RESP 16
--- NOTE | 2017-06-12 11:17 | P.PN ---
Subjective Principal diagnosis: Acute hypoxic and hypercapnic respiratory failure secondary to congestive heart failure, pneumonia, and hypoventilation syndrome. Acute hypoxic and hypercapnic respiratory failure secondary to congestive heart failure, pneumonia, and hypoventilation secondary to narcotics and sedatives. Patient is a 56-year-old black male who came in to the emergency department on 06/02/2017 with complaints of severe generalized weakness, decreased ability to walk, shortness of breath, and productive cough of small amount of yellow sputum. Patient denied fever, chills, chest pain, nausea vomiting or abdominal pain. He has past medical history of COPD, severe ischemic cardiomyopathy with the most recent echo on 05/22/2017 showing EF of 55-60%, diastolic heart failure , home oxygen at 4 L per nasal cannula, angina, diabetes mellitus, hyperlipidemia, hypertension, renal insufficiency and chronic and ongoing tobacco dependence. He has an AICD in place. He was recently hospitalized for an acute exacerbation of chronic congestive heart failure, he was discharged home on 05/24/2017. Patient also has obstructive sleep apnea for which he wears CPAP at night, but he is unsure of the settings. Patient used to reside in [place] and had recently moved to [place] and is now under the care of Dr. Lu. On admission there was no leukocytosis, d-dimer was negative at 0.46, troponin 0.050 and creatinine at 2.7. Patient was hypoxemic on 4 L oxygen per nasal cannula with O2 saturations at 82. Initial chest x-ray from 06/02/2017 revealed cardiomegaly, mild pulmonary vascular congestion, slight blunting of right costophrenic angle and evidence of a new infiltrate and atelectasis in the right lung base compared to the previous exam. Nephrology consultation was initiated for acute on chronic kidney disease. Patient was initiated on IV Lasix, IV antibiotics in the form of Azactam and Levaquin, and DuoNeb nebulized treatments. Preliminary sputum culture showed few gram-positive and gram- negative organisms. No fever, no chills. Of note patient has been complaining of chronic back pain, and pain radiating down down to his legs or which he had been receiving IV morphine. Today the patient has been noted to be increasingly lethargic and oxygen saturation are barely around 90 on 5 L per nasal cannula. The patient does not have his CPAP unit from home. Per attending ABGs were obtained and showed pH of 7.27, pCO2 is 87 and pO2 of 55 on 5 liters of oxygen. BiPAP ventilatory support was ordered and pulmonary consultation was requested at that time. Examination the patient is lethargic but arousable to verbal stimuli, answers appropriately. Denies significant sputum production at this time. Lung sounds are diminished with few expiratory crackles over posterior bases. Patient was placed on BiPAP with settings IPAP 12/APAP 5 and FiO2 of 50%. Chest x-ray room and 06/05/2017 reviewed and showed right lower lobe infiltrate, so cardiomegaly, changes consistent with congestive heart failure. Patient was reevaluated today on 06/07/2017, remains intermittently on BiPAP, his ABG still reflects relative hypoxemia and hypercapnia, chest x-ray is showing significant improvement in his interstitial edema and in his right lower lobe infiltrate. Today I went ahead and cut down on his doses of Seroquel trazodone and we will go ahead and switch his IV Lasix drip to IV push Lasix. Patient diuresed significantly over the last 12 hours, and he seems to demonstrate significant improvement clinically and based on the chest x-ray. ABG this morning on 50% FiO2 showed a pO2 of 70 pCO2 of 75 and pH of 7.33. CBC is relatively normal. Renal profile is about the same with BUN of 26 creatinine of 1.90. Discussed with the explosive ordnance manager on the case, and we felt it would be best to stop the Lasix drip and switch her to Lasix IV push. Reevaluated today on 06/08/2017, patient is on high flow nasal cannula, off BiPAP , seems to be more awake, and more responsive today. Chest x-ray continues to show improvement in his pulmonary edema and in his right lower lobe pneumonia. CBC is relatively normal basic metabolic profile is normal however his bicarb is 39 BUN is 27 creatinine is 1.76, improving compared to his creatinine couple of days ago. And even compared to yesterday and the day before. Patient is relatively asymptomatic. Denies any specific complaints. He was already switched to Lasix IV push instead of Lasix drip. Chest x-ray as noted significantly improved. Reevaluated today on 06/10/2017, patient seems to be the best he has been over the last few days. He is more awake, he is alert, oriented, and he is not even on oxygen, seems to be doing great. Relatively asymptomatic. No cough no wheezing no shortness of breath. Patient tells me that he feels great today. And he is even ambulating to the bathroom. On his own. Labs were reviewed relatively normal CBC noted. Basic metabolic profile is normal except for bicarb of 39 suggestive of chronic hypercapnic respiratory failure. Renal profile seems to be improving, BUN is 26 creatinine is 1.61. On 06/11/2017 patient seen in follow-up. Awake alert, in no acute distress. He denies chest congestion, denies wheezing or shortness of breath. No febrile episodes last night. She is on 15 L of oxygen per high flow nasal cannula, has been wearing a BiPAP and bedtime. On examination patient is resting in bed, signs of respiratory distress. Lung sounds are clear diminished at the bases. No wheezing, no rhonchi no rales. On 06/12/2017 patient is resting in bed. Denies shortness of breath, his oxygenation has improved, he is currently down to 6 L per high flow nasal cannula, with oxygen saturations from 94-96. No febrile episodes through the night, no significant sputum production. No wheezes, she does continue with coarse crackles over posterior bases. His renal function is stable, nephrology is following. Patient would like to go home today, will need close follow-up with nephrology and pulmonology as outpatient. Increase activity as tolerated. Continue with CPAP at home for his history of DOUG. Objective - Vital Signs Vital signs: Vital Signs Temp 98.1 F 06/12/17 07:30 Pulse 80 06/12/17 08:17 Resp 18 06/12/17 08:15 BP 126/91 06/12/17 07:30 Pulse Ox 98 06/12/17 08:10 Intake & Output 06/11/17 06/12/17 06/12/17 18:59 06:59 18:59 Intake Total 1820 1800 Output Total 1600 2100 Balance 220 -300 Weight 133 kg Intake: Intake, IV Titration 100 Amount Aztreonam 2 gm In Sodium 100 Chloride 0.9% 100 ml @ 100 mls/hr IVPB Q8H GARIMA Rx#:[id number] Oral 1720 1800 Output: Urine 1600 2100 Other: Voiding Method Toilet Toilet Toilet Urinal Urinal Urinal # Voids 2 3 # Bowel Movements 1 - Exam Exam GENERAL EXAM: Alert and oriented, comfortable in no apparent distress. HEAD: Normocephalic. EYES: Normal reaction of pupils, equal size. NOSE: Clear with pink turbinates. THROAT: No erythema or exudates. NECK: No masses, no JVD. CHEST: No chest wall deformity. LUNGS: Equal air entry with no rales, but no wheeze, rhonchi or dullness. CVS: S1 and S2 normal with no audible mumurs, regular rhythm. ABDOMEN: No hepatosplenomegaly, normal bowel sounds, no guarding or rigidity. SPINE: No scoliosis or deformity SKIN: No rashes CENTRAL NERVOUS SYSTEM: No focal deficits, tone is normal in all 4 extremities - Labs CBC & Chem 7: 06/12/17 07:39 06/12/17 07:39 Labs: Abnormal Lab Results - Last 24 Hours (Table) 06/11/17 06/11/17 06/11/17 Range/Units 12:01 13:49 17:11 MCHC (31.0-37.0) g/dL RDW (11.5-15.5) % Plt Count (150-450) k/uL Lymphocytes # (Manual) (1.0-4.8) k/uL Carbon Dioxide 37 H (22-30) mmol/L BUN 33 H (9-20) mg/dL Creatinine 1.60 H (0.66-1.25) mg/dL Glucose 115 H (74-99) mg/dL POC Glucose (mg/dL) 113 H 129 H (75-99) mg/dL AST (17-59) U/L ALT (21-72) U/L Albumin (3.5-5.0) g/dL 06/12/17 06/12/17 06/12/17 Range/Units 07:23 07:39 07:39 MCHC 29.5 L (31.0-37.0) g/dL RDW 16.0 H (11.5-15.5) % Plt Count 113 L (150-450) k/uL Lymphocytes # (Manual) 0.83 L (1.0-4.8) k/uL Carbon Dioxide 38 H (22-30) mmol/L BUN 27 H (9-20) mg/dL Creatinine 1.66 H (0.66-1.25) mg/dL Glucose 111 H (74-99) mg/dL POC Glucose (mg/dL) 110 H (75-99) mg/dL AST 136 H (17-59) U/L ALT 84 H (21-72) U/L Albumin 3.1 L (3.5-5.0) g/dL Assessment and Plan Plan: Assessment: #1. Acute exacerbation diastolic CHF, recent echo from 05/22/2017 showed EF 55- 60%, mild tricuspid regurg and pulmonary hypertension. #2. Acute right lower lung pneumonia, possibly gram-negative #3. Acute on chronic kidney disease, nephrology following #4. Acute hypoxic respiratory failure related to diastolic CHF and right lower lobe pneumonia #5. Acute hypercapnic respiratory failure related to history of DOUG with components of obesity/hypoventilation syndrome #6. Diabetes mellitus. #7. Hypertension. #8. Underlying COPD #9. Coronary artery disease. #10. History of severe ischemic cardiomyopathy. #11. Status post AICD placement. #12. Chronic and ongoing tobacco dependence. #13. Hyperlipidemia Plan: A present treatment plan, continue BiPAP as needed and at bedtime while inpatient, continue with home CPAP after discharge. Continue weaning oxygen. Microbiology has been reviewed and has been negative. Increase activity as tolerated patient could be considered for discharge in the next 24 hours. Follow-up with Dr. Gan in 1 week. I performed a history & physical examination of the patient and discussed their management with my nurse practitioner, Ysabel Macias. I reviewed the nurse practitioner's note and agree with the documented findings and plan of care.
[2017-06-12 11:37] LABS: Glucose,Whole Blood 124 mg/dL (75-99)
[2017-06-12 15:31] VITALS: BP 123/78; TEMP 97.9
[2017-06-12 15:47] VITALS: PULSE 79
--- NOTE | 2017-06-12 20:33 | PN ---
PROGRESS NOTE Patient is seen for followup for acute kidney injury on top of chronic kidney disease. He is currently stable and awaiting discharge. He has been diuresed and currently maintained on oral Lasix. EXAMINATION: Blood pressure 123/78, heart rate 83 per minute, O2 sats 92% on room air. Examination of the heart S1, S2. Examination lungs, bilateral breath sounds are heard. Decreased breath sounds at the bases with basal crackles heard at the bases. Abdomen is soft, obese, nontender. Examination of lower extremity shows chronic skin changes. LABS: Show sodium 143, potassium 3.8, BUN 26, serum creatinine 1.6, hemoglobin 15.5 g/dL. ASSESSMENT: 1. Acute kidney injury secondary to cardiorenal syndrome. 2. Congestive heart failure, fluid overload, currently switched to oral Lasix. 3. History of severe cardiomyopathy, ejection fraction was 55-60% on echocardiogram done on 05/22/2017 with evidence of mild pulmonary hypertension and severe concentric left ventricular hypertrophy. PLAN: Patient can be discharged on current diuretics. He will follow up as outpatient for management of CKD and volume overload. MMODL / IJN: [id number] /
[2017-06-13 02:43] LABS: Glucose,Whole Blood 114 mg/dL (75-99)
--- NOTE | 2017-06-13 07:34 | DS ---
DISCHARGE SUMMARY CHIEF COMPLAINT: Difficulty breathing. HISTORY OF PRESENT ILLNESS AND PHYSICAL EXAM: Details of this man's history and physical can be found in the initial workup. LABORATORY STUDIES: While he was in the hospital he had laboratory studies, details of which can be found in the laboratory section of his chart. COURSE IN HOSPITAL: After admission, he was placed on bed rest, started on intravenous fluids and started on updrafts and antibiotics. He continued to have difficulty with shortness of breath and became progressively more lethargic at 1 point when he developed CO2 retention and had to be moved to the intensive care unit and placed on BiPAP. After that, he continued to slowly improve. He was able to be moved back out to the floor and was complicated by and arthralgias of the feet for several days, which began to subside. It was felt that he could go home on the and he will be seen in the office several days. FINAL DIAGNOSES: 1. Acute respiratory failure. 2. Chronic obstructive pulmonary disease. 3. Congestive heart failure. 4. cardiomyopathy. 5. Diabetes mellitus. 6. Obesity. 7. Arthritis of both feet. OPERATIONS: None. CONSULTATIONS: Cardiology and Pulmonology. He is improved. 1. She is improved. MMODL / IJN: [id number] /
== END 2017-06-12 17:05 | disposition home health service (06) | DRG 190 ==
LOC: EC 16:21 → 6SEL 19:04 → 4MS4W 06-04 09:30 → 6ICU 06-06 15:12 → 5MS5E 06-08 21:17
PROVIDERS: ADMIT Family Medicine; ATTEND Family Medicine
PROC: 5A09457 Assistance with Respiratory Ventilation, 24-96 Consecutive Hours, Continuous Positive Airway Pressure (ICD-10-PCS; principal; 2017-06-06)
DX: J44.0 Chronic obstructive pulmonary disease with (acute) lower respiratory infection (principal); I50.33 Acute on chronic diastolic (congestive) heart failure; J96.21 Acute and chronic respiratory failure with hypoxia; J15.6 Pneumonia due to other Gram-negative bacteria; J96.22 Acute and chronic respiratory failure with hypercapnia; I13.0 Hypertensive heart and chronic kidney disease with heart failure and stage 1 through stage 4 chronic kidney disease, or unspecified chronic kidney disease; E87.4 Mixed disorder of acid-base balance; E66.2 Morbid (severe) obesity with alveolar hypoventilation; E11.22 Type 2 diabetes mellitus with diabetic chronic kidney disease; N17.9 Acute kidney failure, unspecified; I27.20 Pulmonary hypertension, unspecified; E11.40 Type 2 diabetes mellitus with diabetic neuropathy, unspecified; I07.1 Rheumatic tricuspid insufficiency; N18.3 Chronic kidney disease, stage 3 (moderate); E78.5 Hyperlipidemia, unspecified; F17.200 Nicotine dependence, unspecified, uncomplicated; G89.29 Other chronic pain; I25.10 Atherosclerotic heart disease of native coronary artery without angina pectoris; I25.2 Old myocardial infarction; I25.5 Ischemic cardiomyopathy; K21.9 Gastro-esophageal reflux disease without esophagitis; M54.9 Dorsalgia, unspecified; T42.75XA Adverse effect of unspecified antiepileptic and sedative-hypnotic drugs, initial encounter; T40.605A Adverse effect of unspecified narcotics, initial encounter; Z79.4 Long term (current) use of insulin; Z79.899 Other long term (current) drug therapy; Z79.82 Long term (current) use of aspirin; Z88.0 Allergy status to penicillin; Z95.810 Presence of automatic (implantable) cardiac defibrillator; Z95.5 Presence of coronary angioplasty implant and graft; Y92.9 Unspecified place or not applicable
CPT/HCPCS: 36415; 36600; 70450; 71010; 71020; 80048; 80053; 81003; 82550; 82553; 82805; 83605; 83735; 83880; 84100; 84443; 84484; 84550; 85025; 85379; 85610; 85730; 87040; 87070; 87086; 87205; 93005; 94640; 94660; 94760; 96361; 96365; 96368; 96375; 99285

== ENCOUNTER → 2017-11-01 | Outpatient (CLI) | payer MEDICARE, OTHER ==
--- NOTE | 2017-11-01 14:36 | MR ---
EXAMINATION TYPE: MR lumbar spine wo con DATE OF EXAM: 11/01/2017 COMPARISON: NONE HISTORY: Low back pain into left leg CONTRAST: None TECHNIQUE: Multiplanar, multisequence images of the lumbar spine were acquired. FINDINGS: L5-S1: Broad-based disc bulge is present. There may be central subligamentous disc extension without thecal sac contact or exiting nerve root contact. Moderate anterior thecal sac compression is present . Mild facet hypertrophy is present. There is moderate right and severe left foraminal stenosis. Marc elate with the clinical symptoms. L4-L5: There is a minimal grade 1 spondylolisthesis. There appears to be disc uncovering as well as b road-based disc bulge with moderate anterior thecal sac compression. No AP spinal canal stenosis is p resent. There is severe right and moderate left foraminal stenosis. Nerve root compression within the right foramen is present. Facet hypertrophy is present. L3-L4: No significant disc bulge or disc herniation. No spinal canal stenosis. No foraminal stenosi s. L2-L3: Mild disc bulge has minimal anterior thecal sac compression. No spinal canal stenosis or neura l foraminal stenosis is present. No spinal canal stenosis. No foraminal stenosis. L1-L2: No significant disc bulge or disc herniation. No spinal canal stenosis. No foraminal stenosi s. T12-L1: No significant disc bulge or disc herniation. No spinal canal stenosis. No foraminal stenos is. IMPRESSION: 1. Foraminal stenosis severe left L5-S1 and severe right L4-5 may have exiting nerve root contact wit h disc material in the foramen. 2. Disc bulging L5-S1, L4-5 without AP spinal canal stenosis. 3. Minimal grade 1 spondylolisthesis with disc uncovering may be present.
== END | disposition home or self-care (01) ==
LOC: RADMRIMAIN 13:47
PROVIDERS: ATTEND Psychiatry & Neurology Pain Medicine
DX: M99.73 Connective tissue and disc stenosis of intervertebral foramina of lumbar region (principal); M51.26 Other intervertebral disc displacement, lumbar region; M43.16 Spondylolisthesis, lumbar region
CPT/HCPCS: 72148

== ENCOUNTER 2017-11-25 15:52 | Inpatient (IN) | payer MEDICARE, OTHER ==
[2017-11-25] MEDS ORDERED: ALBUTEROL NEBULIZED 2.5 MG/3 ML INHALATION STA (16:28)
--- NOTE | 2017-11-25 16:42 | XR ---
EXAMINATION TYPE: XR chest 1V portable DATE OF EXAM: 11/25/2017 COMPARISON: 06/11/2017 HISTORY: Syncopal episodes TECHNIQUE: Single frontal view of the chest is obtained. FINDINGS: There is mild pulmonary vascular congestion is seen on the prior exam retrocardiac opacity is also present obscuring the left hemidiaphragm. Left-sided cardiac device is noted with enlargement of the cardiac mediastinal silhouette and engorgement of the hilar vasculature. The osseous structu res are intact. IMPRESSION: 1. Retrocardiac opacity that may represent a small pleural effusion and atelectasis or pneumonia in t he appropriate clinical setting. 2. Engorged hilar vasculature and mild interstitial pulmonary edema likely on the basis of decompensa anna congestive heart failure.
[2017-11-25 16:53] LABS: D-Dimer 1.17 mg/L FEU (<0.60)
[2017-11-25 16:58] LABS: INR 1.1 (<1.2); Partial Thromboplastin Time 23.8 sec (22.0-30.0); Prothrombin Time 10.5 sec (9.0-12.0)
[2017-11-25 17:01] LABS: Albumin 3.7 g/dL (3.5-5.0); Calcium 8.7 mg/dL (8.4-10.2); Potassium 5.2 mmol/L (3.5-5.1); Total Bilirubin 0.4 mg/dL (0.2-1.3); Total Protein 6.6 g/dL (6.3-8.2)
[2017-11-25 17:02] LABS: Anisocytosis Slight; HGB 17.9 gm/dL (13.0-17.5); Hypochromasia Moderate; MCH 29.9 pg (25.0-35.0); MCHC 31.5 g/dL (31.0-37.0); MCV 94.9 fL (80.0-100.0); Mean Platelet Volume 9.7; Platelet Count 128 k/uL (150-450); RBC 5.99 m/uL (4.30-5.90); RDW 16.3 % (11.5-15.5); WBC 9.6 k/uL (3.8-10.6)
[2017-11-25 17:07] LABS: HCT 56.8 % (39.0-53.0)
[2017-11-25] MEDS: SODIUM CHLORIDE 0.9% 1,000 ML IV STA (17:16)
[2017-11-25 17:18] LABS: Creatine Kinase MB 9.4 ng/mL (0.0-2.4); Troponin I 0.04 ng/mL (0.000-0.034)
[2017-11-25 17:39] LABS: Lymphocytes # (M) 0.67 k/uL (1.0-4.8); Monocytes # (M) 0.38 k/uL (0-1.0); Neutrophils # (M) 8.54 k/uL (1.3-7.7); Neutrophils % (M) 89 %; Nucleated Red Blood Cells 0 /100 WBC (0-0); Polychromasia Present; Total Cells Counted 100
[2017-11-25 17:47] LABS: ABG PH 7.23 (7.35-7.45)
[2017-11-25 17:49] LABS: ABG HCO3 32 mmol/L (21-25); ABG PCO2 75 mmHg (35-45); ABG PO2 66 mmHg (83-108); ABG TCO2 34 mmol/L (19-24)
[2017-11-25] MEDS ORDERED: FUROSEMIDE 10 MG/ML 4 ML VIAL IV STA (18:07)
--- NOTE | 2017-11-25 18:25 | CT ---
EXAMINATION TYPE: CT brain alex padilla con DATE OF EXAM: 11/25/2017 COMPARISON: 06/02/2017 HISTORY: Syncopal episode today. Abnormal ABGs. CT DLP: 2096 mGycm. Automated Exposure Control for Dose Reduction was Utilized. TECHNIQUE: CT scan of the head and cervical spine are performed without contrast. 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 There is no acute intracranial hemorrhage, mass effect, or midline shift identified. The ventricles and sulci are within normal limits in size. The globes are intact and the visualized sinuses are clear. There is incidental note of a partially empty sella turcica. Cervical spine is visualized in its entirety from C1 through upper thoracic levels and demonstrates s atisfactory alignment without evidence of acute fracture or dislocation. There is reversal usual cerv ical lordosis. Mild multilevel degenerative changes of the cervical spine resulting in mild bilateral neural foraminal narrowing at C4-C5. There is grade 1 anterolisthesis of C4 and C5 without facet mal alignment. This is likely degenerative in nature. Prevertebral soft tissue appears within normal limi ts. The C1-C2 articulation is unremarkable. IMPRESSION: 1. There is no acute fracture or dislocation evident in the cervical spine. 2. No acute intracranial hemorrhage, mass effect, or midline shift is seen. 3. Reversal of the usual cervical lordosis and grade 1 anterolisthesis of C4 and C5, likely on a dege nerative basis. 4. 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
[2017-11-25] MEDS ORDERED: cefTRIAXone IN SWFI 1,000 MG/10 ML SYRINGE IVP STA (18:30)
--- NOTE | 2017-11-25 18:30 | ED ---
Syncope HPI - General Chief Complaint: Syncope Stated Complaint: Syncope Time Seen by Provider: 11/25/17 16:21 Source: patient, EMS Mode of arrival: EMS - History of Present Illness Initial Comments: 57 years old gentleman came in with a very low oxygen saturation and EMS noticed his O2 sat was 50% history of firm coronary artery disease congestive heart failure hypertension dyslipidemia sleep apnea and is quite confused on arrival he was trying to catch things in the air which are not he was in there, review of system is not available because of the patient's confusion - Related Data Home Medications Medication Instructions Recorded Confirmed Gabapentin [Neurontin] 300 mg PO DAILY 01/05/16 11/25/17 amLODIPine [Norvasc] 10 mg PO DAILY 01/05/16 11/25/17 hydrALAZINE HCL [Apresoline] 25 mg PO TID 01/05/16 11/25/17 traZODone HCL [Desyrel] 200 mg PO HS 01/05/16 11/25/17 Allopurinol [Zyloprim] 100 mg PO DAILY 05/21/17 11/25/17 Escitalopram [Lexapro] 10 mg PO DAILY 05/21/17 11/25/17 QUEtiapine [SEROquel] 200 mg PO HS 05/21/17 11/25/17 cloNIDine HCL [Catapres] 0.2 mg PO TID 05/21/17 11/25/17 Albuterol Inhaler [Ventolin Hfa 2 puff INHALATION RT-QID PRN 11/25/17 11/25/17 Inhaler] Fluticasone/Vilanterol [Breo 1 puff INHALATION RT-DAILY 11/25/17 11/25/17 Ellipta 100-25 Mcg Inhaler] HYDROcodone/APAP 5-325MG [Terreton 1 tab PO TID PRN 11/25/17 11/25/17 5-325] Ibuprofen [Motrin] 800 mg PO BID PRN 11/25/17 11/25/17 Lisinopril [Zestril] 20 mg PO DAILY 11/25/17 11/25/17 Pravastatin Sodium [Pravachol] 40 mg PO HS 11/25/17 11/25/17 Pregabalin [Lyrica] 75 mg PO BID 11/25/17 11/25/17 Previous Rx's Medication Instructions Recorded Aspirin EC [Ecotrin Low Dose] 81 mg PO DAILY #100 tablet. 05/24/17 Bumetanide [BUMEX] 4 mg PO BID #60 tab 05/24/17 Insulin Aspart [NovoLOG Flexpen] 4 units SQ AC-TID #120 ml 06/12/17 Insulin Glargine [Lantus] 20 unit SQ DAILY #600 vial 06/12/17 Ipratropium-Albuterol Nebulize 3 ml INHALATION RT-QID PRN #120 neb 06/12/17 [Duoneb 0.5 mg-3 mg/3 ml Soln] Allergies Allergy/AdvReac Type Severity Reaction Status Date / Time Penicillins Allergy Unknown Verified 11/25/17 16:42 Review of Systems ROS Statement: Those systems with pertinent positive or pertinent negative responses have been documented in the HPI. ROS Other: All systems not noted in ROS Statement are negative. Past Medical History Past Medical History: Coronary Artery Disease (CAD), Chest Pain / Angina, Heart Failure, COPD, Diabetes Mellitus, Hyperlipidemia, Hypertension, Myocardial Infarction (DE), Sleep Apnea/CPAP/BIPAP Additional Past Medical History / Comment(s): MURMUR, "HEART SKIPS A BEAT", PAST ACID REFLUX, NEUROPATHY, BIPOLAR, Last Myocardial Infarction Date:: 2004 History of Any Multi-Drug Resistant Organisms: None Reported Past Surgical History: AICD, Heart Catheterization With Stent Past Anesthesia/Blood Transfusion Reactions: No Reported Reaction Date of Last Stent Placement:: 2004 Type of Cardiac Device: AICD Device Placement Date:: 09/2004 Past Psychological History: Bipolar Smoking Status: Former smoker Past Alcohol Use History: None Reported Past Drug Use History: None Reported - Past Family History Father Family Medical History: Cancer Mother Family Medical History: Cancer General Exam - General Exam Comments Initial Comments: General: The patient is awake but very sleepy, confused, trying to catch things in the air Skin: Skin is warm and dry and no rashes or lesions are noted. Noticed a hematoma on the right side of the scalp Eye: Pupils are equal, round and reactive to light, extra-ocular movements are intact; there is normal conjunctiva bilaterally. Ears, nose, mouth and throat: Is dehydrated Neck: The neck is supple, there is no tenderness Cardiovascular: There is a regular rate and rhythm. No murmur, rub or gallop is appreciated. Respiratory: To auscultation bilateral, report exchange bilateral Gastrointestinal: Soft, non-distended, non-tender abdomen without masses or organomegaly noted. There is no rebound or guarding present. Bowel sounds are unremarkable. Back: There is no tenderness to palpation in the midline. There is no obvious deformity. Musculoskeletal: Normal ROM, no tenderness, There is no pedal edema. There is no calf tenderness or swelling. No cords were appreciated. Neurological: CN II-XII intact, Cranial nerves III through XII are intact. There are no obvious motor or sensory deficits. Coordination appears grossly intact. Speech is normal. Psychiatric: Cooperative, but significantly confused Course Vital Signs 11/25/17 11/25/17 11/25/17 15:58 16:24 16:38 Temperature 97.0 F L Pulse Rate 101 H 104 H Respiratory 20 Rate Blood Pressure 186/100 O2 Sat by Pulse 91 L 84 L Oximetry 11/25/17 11/25/17 11/25/17 17:02 17:20 18:36 Temperature Pulse Rate 100 98 97 Respiratory 22 20 Rate Blood Pressure 188/94 199/110 O2 Sat by Pulse 91 L 96 Oximetry 11/25/17 19:39 Temperature Pulse Rate 91 Respiratory 18 Rate Blood Pressure 165/98 O2 Sat by Pulse 96 Oximetry - Reevaluation(s) Reevaluation #1: Will be admitted to ICU 11/25/17 20:11 EKG Findings - EKG Comments: EKG Findings:: EKG is normal sinus rhythm ventricular rate is 94 FL interval is 174 QRS duration is 122 QT/QTC 388/485 review of this EKG revealed T-wave inversion in aVL [place] elevation or ST depression noticed in the other leads Procedures - Intubation Time Out Performed: Yes Sedative: Etomidate Mg Given: 20 Paralytic: Succinylcholine Mg Given: 200 Laryngoscope: fiber optic video scope Size: 4 ET Tube Size: 8 ET Tube Uncuffed: Yes Tube Secured Location: lips Tube Placement Confirmation: visualized tube passing through cords, equal breath sounds bilaterally Patient Tolerated Procedure: well (Patient will be sedated with propofol infusion, midazolam 2.5 was given as well) Medical Decision Making - Lab Data Result diagrams: 11/25/17 16:09 11/25/17 16:09 Lab Results 11/25/17 11/25/17 11/25/17 Range/Units 16:09 16:09 16:09 WBC 9.6 (3.8-10.6) k/uL RBC 5.99 H (4.30-5.90) m/uL Hgb 17.9 H (13.0-17.5) gm/dL Hct 56.8 H (39.0-53.0) % MCV 94.9 (80.0-100.0) fL MCH 29.9 (25.0-35.0) pg MCHC 31.5 (31.0-37.0) g/dL RDW 16.3 H (11.5-15.5) % Plt Count 128 L (150-450) k/uL Neutrophils % (Manual) 89 % Lymphocytes % (Manual) 7 % Monocytes % (Manual) 4 % Neutrophils # (Manual) 8.54 H (1.3-7.7) k/uL Lymphocytes # (Manual) 0.67 L (1.0-4.8) k/uL Monocytes # (Manual) 0.38 (0-1.0) k/uL Nucleated RBCs 0 (0-0) /100 WBC Manual Slide Review Performed Polychromasia Present Hypochromasia Moderate Anisocytosis Slight PT (9.0-12.0) sec INR (<1.2) APTT (22.0-30.0) sec D-Dimer (<0.60) mg/L FEU Sample Site ABG pH (7.35-7.45) ABG pCO2 (35-45) mmHg ABG pO2 (83-108) mmHg ABG HCO3 (21-25) mmol/L ABG Total CO2 (19-24) mmol/L ABG O2 Saturation (94-97) % ABG Base Excess mmol/L Anthony Test FiO2 % Sodium 144 (137-145) mmol/L Potassium 5.2 H (3.5-5.1) mmol/L Chloride 103 (98-107) mmol/L Carbon Dioxide 31 H (22-30) mmol/L Anion Gap 10 mmol/L BUN 33 H (9-20) mg/dL Creatinine 2.11 H (0.66-1.25) mg/dL Est GFR (CKD-EPI)AfAm 39 (>60 ml/min/1.73 sqM) Est GFR (CKD-EPI)NonAf 34 (>60 ml/min/1.73 sqM) Glucose 139 H (74-99) mg/dL Calcium 8.7 (8.4-10.2) mg/dL Total Bilirubin 0.4 (0.2-1.3) mg/dL AST 41 (17-59) U/L ALT 22 (21-72) U/L Alkaline Phosphatase 109 (38-126) U/L Total Creatine Kinase 1253 H (55-170) U/L CK-MB (CK-2) 9.4 H* (0.0-2.4) ng/mL CK-MB (CK-2) Rel Index 0.8 Troponin I 0.040 H* (0.000-0.034) ng/mL Total Protein 6.6 (6.3-8.2) g/dL Albumin 3.7 (3.5-5.0) g/dL 11/25/17 11/25/17 Range/Units 16:09 17:34 WBC (3.8-10.6) k/uL RBC (4.30-5.90) m/uL Hgb (13.0-17.5) gm/dL Hct (39.0-53.0) % MCV (80.0-100.0) fL MCH (25.0-35.0) pg MCHC (31.0-37.0) g/dL RDW (11.5-15.5) % Plt Count (150-450) k/uL Neutrophils % (Manual) % Lymphocytes % (Manual) % Monocytes % (Manual) % Neutrophils # (Manual) (1.3-7.7) k/uL Lymphocytes # (Manual) (1.0-4.8) k/uL Monocytes # (Manual) (0-1.0) k/uL Nucleated RBCs (0-0) /100 WBC Manual Slide Review Polychromasia Hypochromasia Anisocytosis PT 10.5 (9.0-12.0) sec INR 1.1 (<1.2) APTT 23.8 (22.0-30.0) sec D-Dimer 1.17 H (<0.60) mg/L FEU Sample Site RAD ABG pH 7.23 L (7.35-7.45) ABG pCO2 75 H* (35-45) mmHg ABG pO2 66 L (83-108) mmHg ABG HCO3 32 H (21-25) mmol/L ABG Total CO2 34 H (19-24) mmol/L ABG O2 Saturation 91.0 L (94-97) % ABG Base Excess 4.0 mmol/L Anthony Test Yes FiO2 50 % Sodium (137-145) mmol/L Potassium (3.5-5.1) mmol/L Chloride (98-107) mmol/L Carbon Dioxide (22-30) mmol/L Anion Gap mmol/L BUN (9-20) mg/dL Creatinine (0.66-1.25) mg/dL Est GFR (CKD-EPI)AfAm (>60 ml/min/1.73 sqM) Est GFR (CKD-EPI)NonAf (>60 ml/min/1.73 sqM) Glucose (74-99) mg/dL Calcium (8.4-10.2) mg/dL Total Bilirubin (0.2-1.3) mg/dL AST (17-59) U/L ALT (21-72) U/L Alkaline Phosphatase (38-126) U/L Total Creatine Kinase (55-170) U/L CK-MB (CK-2) (0.0-2.4) ng/mL CK-MB (CK-2) Rel Index Troponin I (0.000-0.034) ng/mL Total Protein (6.3-8.2) g/dL Albumin (3.5-5.0) g/dL Critical Care Time Total Critical Care Time: 60 Critical Care Time: Patient medically very low oxygen saturation and was a 50% on arrival have a pulmonary high flow oxygen 15 L they bumped up his O2 sat to low 80s ABGs were done ABGs confirmed this CO2 quite high pCO2 was 75 was started on a BiPAP then other labs are reviewed, noticed his d-dimer is elevated he is not a candidate for a CT angiogram considering his creatinine is 2.11H is considerably higher than his previous numbers. CPK is elevated at 1253 is consistent with the rhabdomyolysis we need to do a VQ scan. To rule out his pulmonary embolism then taper is elevated, he be admitted to was probably ICU I am holding off any heparinization until I get the CT head and make sure is not bleeding after that. Once head CT report is available and it's negative then we will proceed with heparinization since his troponin is elevated troponin, ABGs were repeated about term over 15 minutes after patient was on the BiPAP, they have not changed at all and is quite agitated begin a guardian and intubated him, Dr. Gan or agreed with that plan I spoke with him personally Disposition Clinical Impression: Dyspnea, Rhabdomyolysis, Hypoxia, Respiratory failure, Altered mental status, Renal failure, Elevated troponin, CHF (congestive heart failure), Pneumonia Disposition: ADMITTED IP TO THIS [facility] Condition: Good
[2017-11-25] MEDS ORDERED: LABETALOL 5 MG/ML VIAL MDV IVP STA (18:35)
[2017-11-25] MEDS ORDERED: NITROGLYCERIN SL TABS 0.4 MG TAB SUBLINGUAL PRN (18:36)
[2017-11-25] MEDS ORDERED: HEPARIN SODIUM,PORCINE 5,000 UNIT/ML 1 ML VIAL IV ONE (18:36)
[2017-11-25] MEDS ORDERED: MORPHINE SULFATE/PF 10MG/10ML VL IV PRN (18:36)
[2017-11-25] MEDS ORDERED: cefTRIAXone IN SWFI 2,000 MG/20 ML SYRINGE IVP STA (18:45)
[2017-11-25] MEDS ORDERED: HYDROcodone/APAP 5-325MG 1 EACH TAB PO PRN (18:49)
[2017-11-25] MEDS ORDERED: ALBUTEROL NEBULIZED 2.5 MG/3 ML INHALATION PRN (18:49)
[2017-11-25] MEDS: HEPARIN SOD,PORK IN 0.45% NACL 25,000 UNIT in 0.45% NACL 1 500ML.BAG IV SCH (19:06)
[2017-11-25] MEDS ORDERED: LORazepam 2 MG/ML INJ IV STA (19:29)
[2017-11-25 19:46] LABS: ABG PCO2 77 mmHg (35-45); ABG PH 7.23 (7.35-7.45)
[2017-11-25 19:47] LABS: ABG Base Excess 4.5 mmol/L; ABG HCO3 32 mmol/L (21-25); ABG PO2 74 mmHg (83-108); ABG TCO2 34 mmol/L (19-24)
[2017-11-25 19:51] LABS: Appearance,Urine Clear (Clear); Bilirubin,Urine Negative (Negative); Blood,Urine Small (Negative); Color,Urine Yellow; Glucose,Urine (UA) Negative (Negative); Hyaline Casts,Urine 9 /lpf (0-2); Ketones,Urine Negative (Negative); Leukocyte Esterase,Urine Negative (Negative); Mucus,Urine Rare /hpf; Nitrite,Urine Negative (Negative); PH, Urine 5.5 (5.0-8.0); Protein,Urine 1+ (Negative); RBC,Urine <1 /hpf (0-5); Specific Gravity,Urine 1.011 (1.001-1.035); Urobilinogen,Urine <2.0 mg/dL (<2.0); WBC,Urine 1 /hpf (0-5)
[2017-11-25] MEDS ORDERED: ETOMIDATE 2 MG/ML 10 ML VIAL IV STA (20:00)
[2017-11-25] MEDS ORDERED: MIDAZOLAM 2 MG/2 ML VIAL IV ONE ×2 (20:00→21:35)
[2017-11-25] MEDS ORDERED: SUCCINYLCHOLINE CHLORIDE VIAL 200 MG/10 ML VIAL IV STA (20:04)
[2017-11-25] MEDS: PROPOFOL 1,000 MG in EMPTY BAG 1 BAG IV SCH ×2 (20:20→22:44)
[2017-11-25] MEDS ORDERED: PROPOFOL 10 MG/ML 20 ML VIAL IV STA ×2 (20:20→20:28)
--- NOTE | 2017-11-25 20:35 | XR ---
EXAMINATION TYPE: XR chest 1V portable DATE OF EXAM: 11/25/2017 COMPARISON: 11/27/2017 HISTORY: Endotracheal tube placement TECHNIQUE: Single frontal view of the chest is obtained. FINDINGS: The endotracheal tube terminates at the level of the superior aspect of the aortic arch an d distal clavicles, appropriately placed. Enteric tube is less well visualized but appears to extend off of the distal [id number], also appropriately placed. Again there is a retrocardiac opacity rigoberto t is partially visualized as left has chronic angles not included on the image. Interstitial edema an d pulmonary vascular congestion are redemonstrated. Cardiomegaly and left-sided cardiac device are ag ain noted. No sizable pneumothorax. IMPRESSION: 1. Interval intubation with appropriately placed enteric and endotracheal tubes. 2. Persistent pulmonary vascular congestion, cardiomegaly and left basilar opacity that may represent atelectasis/pleural effusion or pneumonia.
[2017-11-25] MEDS ORDERED: KETAMINE 10 MG/ML 20 ML VIAL IV ONE (21:09)
[2017-11-25] MEDS: QUEtiapine 200 MG TAB PO SCH (21:26)
[2017-11-25] MEDS: traZODone HCL 100 MG TAB PO SCH (21:26)
[2017-11-25] MEDS: hydrALAZINE HCL 25 MG TAB PO SCH (22:38)
[2017-11-25] MEDS: cloNIDine HCL 0.2 MG TAB PO SCH (22:38)
[2017-11-25] MEDS: PREGABALIN 75 MG CAP PO SCH (22:47)
[2017-11-25] MEDS ORDERED: AZITHROMYCIN 500 MG in SODIUM CHLORIDE 0.9% 250 ML IVPB STA (23:49)
[2017-11-26 00:36] LABS: Glucose,Whole Blood 104 mg/dL (75-99)
[2017-11-26 00:54] LABS: ABG Base Excess 6.4 mmol/L; ABG HCO3 31 mmol/L (21-25); ABG Oxygen Saturation 93.6 % (94-97); ABG PCO2 48 mmHg (35-45); ABG PH 7.42 (7.35-7.45); ABG PO2 62 mmHg (83-108); ABG TCO2 32 mmol/L (19-24)
[2017-11-26 00:58] LABS: Creatine Kinase MB 6.4 ng/mL (0.0-2.4)
[2017-11-26 00:59] LABS: Troponin I 0.061 ng/mL (0.000-0.034)
[2017-11-26] MEDS: PROPOFOL 1,000 MG in EMPTY BAG 1 BAG IV SCH ×7 (00:59→23:17)
[2017-11-26] MEDS: SODIUM CHLORIDE 0.9% 1,000 ML IV STA (01:01)
[2017-11-26] MEDS ORDERED: NALOXONE 0.4 MG/ML 1 ML VIAL IV PRN (01:30)
[2017-11-26] MEDS: BUMETANIDE 1 MG TAB PO SCH (03:32)
[2017-11-26] MEDS: PRAVASTATIN SODIUM 40 MG TAB PO SCH ×2 (03:32→21:09)
[2017-11-26] MEDS: methylPREDNISolone SOD SUCCI 125 MG/2 ML VIAL IV SCH ×2 (03:33→06:40)
[2017-11-26 06:31] LABS: Anisocytosis Slight; Basophils % (A) 0 %; Eosinophils # (A) 0.2 k/uL (0-0.7); Eosinophils % (A) 1 %; HCT 51.7 % (39.0-53.0); HGB 16.6 gm/dL (13.0-17.5); Hypochromasia Slight; Lymphocytes # (A) 0.9 k/uL (1.0-4.8); Lymphocytes % (A) 8 %; MCH 29.7 pg (25.0-35.0); MCHC 32.1 g/dL (31.0-37.0); MCV 92.5 fL (80.0-100.0); Mean Platelet Volume 9.2; Monocytes # (A) 0.5 k/uL (0-1.0); Monocytes % (A) 5 %; Neutrophils # (A) 9.2 k/uL (1.3-7.7); Neutrophils % (A) 84 %; Platelet Count 128 k/uL (150-450); RBC 5.58 m/uL (4.30-5.90); RDW 16.6 % (11.5-15.5)
[2017-11-26 06:39] LABS: Partial Thromboplastin Time 27.9 sec (22.0-30.0)
[2017-11-26 06:41] LABS: INR 1.1 (<1.2); Prothrombin Time 10.4 sec (9.0-12.0)
[2017-11-26 06:50] LABS: Calcium 8.4 mg/dL (8.4-10.2); Magnesium 1.8 mg/dL (1.6-2.3); Potassium 4.4 mmol/L (3.5-5.1)
[2017-11-26 07:11] LABS: Troponin I 0.071 ng/mL (0.000-0.034)
--- NOTE | 2017-11-26 07:17 | XR ---
EXAMINATION TYPE: XR chest 1V portable DATE OF EXAM: 11/26/2017 COMPARISON: 11/25/2017 HISTORY: Ventilatory dependent respiratory failure. TECHNIQUE: Single frontal view of the chest is obtained. FINDINGS: Endotracheal tube terminates at the level of the distal clavicles and is located slightly above the aortic arch, cephalad from the prior exam. This may relate to patient head positioning or i nterval retraction. This could be advanced approximately 2.5-3 cm for optimal placement. Interval endy cement of an enteric tube is seen with its distal aspect off of the field of view extending and dista l tip oriented cephalad. There is redemonstration of cardiomegaly and dual lead left-sided cardiac de vice. There is improved aeration of the lungs with few patchy right-sided areas of airspace disease a nd mild pulmonary vascular congestion remaining. No sizable pleural effusion or pneumothorax. IMPRESSION: 1. Endotracheal tube appears slightly cephalad in position and could relate to patient's head positio bay or interval retraction. Advancement of 2.5 to 3 cm could be performed for optimal placement. 2. Improved aeration of the lungs with few patchy areas of residual right-sided airspace disease that may relate to atelectasis and mild pulmonary vascular congestion. Interval placement of an enteric tube that appears appropriately placed.
[2017-11-26 07:27] LABS: Creatine Kinase MB 3.9 ng/mL (0.0-2.4)
[2017-11-26] MEDS ORDERED: INSULIN ASPART 100 UNIT/ML 1 ML 10 ML VIAL SQ SCH ×2 (07:30→10:00)
[2017-11-26 07:38] LABS: ABG Base Excess 6.1 mmol/L; ABG HCO3 31 mmol/L (21-25); ABG Oxygen Saturation 94.9 % (94-97); ABG PCO2 48 mmHg (35-45); ABG PH 7.42 (7.35-7.45); ABG PO2 70 mmHg (83-108); ABG TCO2 32 mmol/L (19-24)
[2017-11-26] MEDS: HEPARIN SODIUM,PORCINE 5,000 UNIT/ML 1 ML VIAL IV PRN ×2 (07:48→14:14)
[2017-11-26] MEDS: IPRATROPIUM-ALBUTEROL 3 ML NEB INHALATION PRN ×2 (07:56→11:44)
[2017-11-26] MEDS ORDERED: SYMBICORT 80-4.5 MCG INHALER INHALATION SCH (08:00)
[2017-11-26 08:24] LABS: Glucose,Whole Blood 169 mg/dL (75-99)
[2017-11-26] MEDS: MAGNESIUM SULFATE-D5W PMX 1 GM in DEXTROSE/WATER 1 100ML.BAG IVPB SCH ×2 (08:37→09:41)
[2017-11-26] MEDS: ASPIRIN 325 MG TAB PO SCH (08:38)
[2017-11-26] MEDS: CHLORHEXIDINE GLUCONATE 15 ML CUP MUCOUS MEM SCH ×2 (08:38→21:09)
[2017-11-26] MEDS: METOPROLOL TARTRATE 25 MG TAB PO SCH ×2 (08:39→21:11)
[2017-11-26] MEDS: GABAPENTIN 300 MG CAP PO SCH (08:41)
[2017-11-26] MEDS: ESCITALOPRAM 10 MG TAB PO SCH (08:41)
[2017-11-26] MEDS: PANTOPRAZOLE 40 MG/10 ML VIAL IV SCH (08:41)
[2017-11-26] MEDS: ALLOPURINOL 100 MG TAB PO SCH (08:42)
[2017-11-26] MEDS ORDERED: LISINOPRIL 20 MG TAB PO SCH (09:00)
[2017-11-26] MEDS ORDERED: INSULIN DETEMIR 100 UNIT/ML 10 ML VIAL SQ SCH (09:00)
[2017-11-26] MEDS: PREGABALIN 75 MG CAP PO SCH ×2 (09:47→21:13)
[2017-11-26] MEDS: cloNIDine HCL 0.2 MG TAB PO SCH ×3 (09:48→21:10)
[2017-11-26] MEDS: hydrALAZINE HCL 25 MG TAB PO SCH ×3 (09:48→23:17)
[2017-11-26 09:56] LABS: Glucose,Whole Blood 209 mg/dL (75-99)
[2017-11-26] MEDS: SODIUM PHOSPHATE 10 MMOL in SODIUM CHLORIDE 0.9% 250 ML IVPB SCH ×2 (10:42→12:53)
[2017-11-26] MEDS: amLODIPine 10 MG TAB PO SCH (11:07)
[2017-11-26] MEDS ORDERED: FUROSEMIDE 10 MG/ML 10 ML VIAL IV STA (11:58)
--- NOTE | 2017-11-26 12:04 | P.CNPUL ---
History of Present Illness Consult date: 11/26/17 Reason for consult: hypoxemia, pneumonia, other Chief complaint: Syncope History of present illness: Consult dated 11/26/2017 This is a 57-year-old male who was admitted through the emergency room with an episode of syncope. He apparently was found have a very low saturation in the emergency department. Also noted by EMS. The patient was apparently quite confused on admission to the emergency department. The patient was admitted on the . His admission diagnoses included possible myocardial infarction pneumonia and hypoxemia mental status changes and renal failure. He apparently was intubated in the ER for declining mental status. The patient does have a history of CAD angina heart failure COPD diabetes hyperlipidemia hypertension myocardial infarction sleep apnea syndrome. Also apparently has a history of gastroesophageal reflux disease bipolar disorder and neuropathy. The patient currently is on the ventilator. His vent settings include the assist control mode, rate of 22, tidal volume 500, FiO2 60%, and PEEP of 5. The patient's on a saline IV at 100 mL an hour heparin via weightbase protocol and propofol at 50 mics per kilogram per minute. The patient will get a daily eruption of sedation today. We'll discontinue the ventilation perfusion scan order and start the patient on tube feeds. Review of Systems ROS unobtainable: due to endotracheal tube Past Medical History Past Medical History: Coronary Artery Disease (CAD), Chest Pain / Angina, Heart Failure, COPD, Diabetes Mellitus, Hyperlipidemia, Hypertension, Myocardial Infarction ([place]), Pneumonia, Renal Disease, Sleep Apnea/CPAP/BIPAP Additional Past Medical History / Comment(s): Low back pain, IDDM type II, diabetic neuropathy, gout, DOUG/CPap, home O2, ischemic cardiomyopathy, murmur, heart skips, Chronic kidney disease, Last Myocardial Infarction Date:: 2004 History of Any Multi-Drug Resistant Organisms: None Reported Past Surgical History: AICD, Heart Catheterization With Stent, Pacemaker Past Anesthesia/Blood Transfusion Reactions: No Reported Reaction Date of Last Stent Placement:: 2004 Type of Cardiac Device: Permanent Pacemaker, AICD Device Placement Date:: 09/2004 Past Psychological History: Bipolar Smoking Status: Former smoker Past Alcohol Use History: None Reported Additional Past Alcohol Use History / Comment(s): STARTED SMOKING AT AGE 19 SMOKED 1PPD THEN DECREASED TO 1 PACK EVERY 3 DAYS. Past Drug Use History: None Reported - Past Family History Father Family Medical History: Cancer Mother Family Medical History: Cancer Medications and Allergies Home Medications Medication Instructions Recorded Confirmed Type Gabapentin [Neurontin] 300 mg PO DAILY 01/05/16 11/25/17 History amLODIPine [Norvasc] 10 mg PO DAILY 01/05/16 11/25/17 History hydrALAZINE HCL [Apresoline] 25 mg PO TID 01/05/16 11/25/17 History traZODone HCL [Desyrel] 200 mg PO HS 01/05/16 11/25/17 History Allopurinol [Zyloprim] 100 mg PO DAILY 05/21/17 11/25/17 History Escitalopram [Lexapro] 10 mg PO DAILY 05/21/17 11/25/17 History QUEtiapine [SEROquel] 200 mg PO HS 05/21/17 11/25/17 History cloNIDine HCL [Catapres] 0.2 mg PO TID 05/21/17 11/25/17 History Aspirin EC [Ecotrin Low Dose] 81 mg PO DAILY #100 tablet. 05/24/17 11/25/17 Rx Bumetanide [BUMEX] 4 mg PO BID #60 tab 05/24/17 11/25/17 Rx Insulin Aspart [NovoLOG Flexpen] 4 units SQ AC-TID #120 ml 06/12/17 11/25/17 Rx Insulin Glargine [Lantus] 20 unit SQ DAILY #600 vial 06/12/17 11/25/17 Rx Ipratropium-Albuterol Nebulize 3 ml INHALATION RT-QID PRN #120 neb 06/12/17 Rx [Duoneb 0.5 mg-3 mg/3 ml Soln] Albuterol Inhaler [Ventolin Hfa 2 puff INHALATION RT-QID PRN 11/25/17 11/25/17 History Inhaler] Fluticasone/Vilanterol [Breo 1 puff INHALATION RT-DAILY 11/25/17 11/25/17 History Ellipta 100-25 Mcg Inhaler] HYDROcodone/APAP 5-325MG [[place] 1 tab PO TID PRN 11/25/17 11/25/17 History 5-325] Ibuprofen [Motrin] 800 mg PO BID PRN 11/25/17 11/25/17 History Lisinopril [Zestril] 20 mg PO DAILY 11/25/17 11/25/17 History Pravastatin Sodium [Pravachol] 40 mg PO HS 11/25/17 11/25/17 History Pregabalin [Lyrica] 75 mg PO BID 11/25/17 11/25/17 History Allergies Allergy/AdvReac Type Severity Reaction Status Date / Time Penicillins Allergy Unknown Verified 11/25/17 16:42 Physical Exam Osteopathic Statement: *. No significant issues noted on an osteopathic structural exam other than those noted in the History and Physical/Consult. Vitals: Vital Signs Temp Pulse Pulse Resp BP BP Pulse Ox 11/26/17 11:48 84 11/26/17 11:00 87 22 178/102 96 11/26/17 10:17 87 22 170/111 97 11/26/17 09:00 91 22 158/96 95 11/26/17 08:18 89 11/26/17 08:02 91 11/26/17 08:00 99.4 F 91 22 161/106 96 11/26/17 07:00 92 22 199/102 95 11/26/17 06:00 90 22 181/93 94 L 11/26/17 05:00 92 22 183/96 96 11/26/17 04:00 99.4 F 92 22 188/101 97 11/26/17 03:35 92 22 197/111 99 11/26/17 02:35 88 22 133/71 96 11/26/17 01:35 90 22 150/91 96 11/26/17 00:35 99.2 F 92 20 157/95 98 11/26/17 00:12 99.0 F 89 20 98 11/26/17 00:00 95 20 134/83 96 11/25/17 23:00 86 20 149/96 100 11/25/17 22:45 86 20 145/96 11/25/17 22:00 20 143/92 99 11/25/17 21:22 90 121/74 81 L 11/25/17 21:00 86 96/53 97 11/25/17 20:58 94 13 111/64 96 11/25/17 20:28 91 19 123/67 11/25/17 20:15 95 19 147/99 99 11/25/17 19:39 91 18 165/98 96 11/25/17 18:36 97 20 199/110 96 11/25/17 17:20 98 22 188/94 91 L 11/25/17 17:02 100 11/25/17 16:38 104 H 11/25/17 16:24 84 L 11/25/17 15:58 97.0 F L 101 H 20 186/100 91 L Intake and Output 11/25/17 11/26/17 11/26/17 22:59 06:59 14:59 Intake Total 63.25 1169.225 893.586 Output Total 200 1063 305 Balance -136.75 106.225 588.586 Intake: IV 725 525 Azithromycin 500 mg In 125 100 Sodium Chloride 0.9% 250 ml @ 125 mls/hr IVPB ONCE STA Rx#:[id number] Magnesium Sulfate-D5w Pmx 200 1 gm In Dextrose/Water 1 100ml.bag @ 100 mls/hr IVPB Q1H GARIMA Rx#: [id number] Sodium Chloride 0.9% 1, 600 100 000 ml @ 100 mls/hr IV . Q10H STA Rx#:[id number] Sodium Phosphate 10 mmol 125 In Sodium Chloride 0.9% 250 ml @ 125 mls/hr IVPB Q2H GARIMA Rx#:[id number] Intake, IV Titration 63.25 290.225 368.586 Amount Heparin Sod,Pork in 0.45% 250.541 NaCl 25,000 unit In 0.45 % NaCl 1 500ml.bag @ 7.47 UNITS/KG/HR 19.99 mls/hr IV .Q24H GARIMA Rx#: [id number] Propofol 1,000 mg In 63.25 290.225 118.045 Empty Bag 1 bag @ Titrate IV .Q0M GARIMA Rx#: [id number] Tube Feeding 54 Other 100 Output: Gastric Drainage 200 200 Urine 200 863 105 Uretheral (Hernandez) 200 Other: Voiding Method Indwelling Catheter Indwelling Catheter Weight 133.81 kg 138 kg 137.3 kg No acute distress, the patient's currently sedated. The patient has an orally placed endotracheal tube and NG tube. HEENT examination is grossly unremarkable. Mucous membranes are moist. Neck supple. Full range of motion. No adenopathy thyromegaly or neck vein distention. Cardiovascular examination reveals regular rhythm rate. S1-S2 normal. No S3 or S4. No discernible murmur noted. Lungs reveal diffuse rhonchi. Breath sounds are equal. No crackles. No wheezes. Abdomen soft bowel sounds are heard. No masses or tenderness. Extremities are intact. No cyanosis clubbing or edema. Skin is without rash or lesion. Neurologic examination cannot be adequately performed. Results - Laboratory Findings CBC and BMP: 11/26/17 06:16 11/26/17 06:16 ABG ABG pH 7.42 (7.35-7.45) 11/26/17 07:25 ABG pCO2 48 mmHg (35-45) H 11/26/17 07:25 ABG pO2 70 mmHg (83-108) L 11/26/17 07:25 ABG O2 Saturation 94.9 % (94-97) 11/26/17 07:25 PT/INR, D-dimer PT 10.4 sec (9.0-12.0) 11/26/17 06:16 INR 1.1 (<1.2) 11/26/17 06:16 D-Dimer 1.17 mg/L FEU (<0.60) H 11/25/17 16:09 Abnormal lab findings: Abnormal Labs 11/25/17 11/25/17 11/25/17 16:09 16:09 16:09 WBC RBC 5.99 H Hgb 17.9 H Hct 56.8 H RDW 16.3 H Plt Count 128 L Neutrophils # Neutrophils # (Manual) 8.54 H Lymphocytes # Lymphocytes # (Manual) 0.67 L D-Dimer ABG pH ABG pCO2 ABG pO2 ABG HCO3 ABG Total CO2 ABG O2 Saturation Potassium 5.2 H Carbon Dioxide 31 H BUN 33 H Creatinine 2.11 H Glucose 139 H POC Glucose (mg/dL) Phosphorus Total Creatine Kinase 1253 H CK-MB (CK-2) 9.4 H* Troponin I 0.040 H* Triglycerides HDL Cholesterol Urine Protein Urine Blood Hyaline Casts Urine Mucus 11/25/17 11/25/17 11/25/17 16:09 17:34 19:28 WBC RBC Hgb Hct RDW Plt Count Neutrophils # Neutrophils # (Manual) Lymphocytes # Lymphocytes # (Manual) D-Dimer 1.17 H ABG pH 7.23 L 7.23 L ABG pCO2 75 H* 77 H* ABG pO2 66 L 74 L ABG HCO3 32 H 32 H ABG Total CO2 34 H 34 H ABG O2 Saturation 91.0 L Potassium Carbon Dioxide BUN Creatinine Glucose POC Glucose (mg/dL) Phosphorus Total Creatine Kinase CK-MB (CK-2) Troponin I Triglycerides HDL Cholesterol Urine Protein Urine Blood Hyaline Casts Urine Mucus 11/25/17 11/26/17 11/26/17 19:37 00:14 00:34 WBC RBC Hgb Hct RDW Plt Count Neutrophils # Neutrophils # (Manual) Lymphocytes # Lymphocytes # (Manual) D-Dimer ABG pH ABG pCO2 ABG pO2 ABG HCO3 ABG Total CO2 ABG O2 Saturation Potassium Carbon Dioxide BUN Creatinine Glucose POC Glucose (mg/dL) 104 H Phosphorus Total Creatine Kinase 1087 H CK-MB (CK-2) 6.4 H* Troponin I 0.061 H* Triglycerides HDL Cholesterol Urine Protein 1+ H Urine Blood Small H Hyaline Casts 9 H Urine Mucus Rare H 11/26/17 11/26/17 11/26/17 00:44 06:16 06:16 WBC RBC Hgb Hct RDW Plt Count Neutrophils # Neutrophils # (Manual) Lymphocytes # Lymphocytes # (Manual) D-Dimer ABG pH ABG pCO2 48 H ABG pO2 62 L ABG HCO3 31 H ABG Total CO2 32 H ABG O2 Saturation 93.6 L Potassium Carbon Dioxide BUN 38 H Creatinine 2.33 H Glucose 173 H POC Glucose (mg/dL) Phosphorus 2.0 L Total Creatine Kinase 830 H CK-MB (CK-2) 3.9 H* Troponin I 0.071 H* Triglycerides 308 H HDL Cholesterol 39 L Urine Protein Urine Blood Hyaline Casts Urine Mucus 11/26/17 11/26/17 11/26/17 06:16 07:25 08:22 WBC 11.0 H RBC Hgb Hct RDW 16.6 H Plt Count 128 L Neutrophils # 9.2 H Neutrophils # (Manual) Lymphocytes # 0.9 L Lymphocytes # (Manual) D-Dimer ABG pH ABG pCO2 48 H ABG pO2 70 L ABG HCO3 31 H ABG Total CO2 32 H ABG O2 Saturation Potassium Carbon Dioxide BUN Creatinine Glucose POC Glucose (mg/dL) 169 H Phosphorus Total Creatine Kinase CK-MB (CK-2) Troponin I Triglycerides HDL Cholesterol Urine Protein Urine Blood Hyaline Casts Urine Mucus 11/26/17 09:55 WBC RBC Hgb Hct RDW Plt Count Neutrophils # Neutrophils # (Manual) Lymphocytes # Lymphocytes # (Manual) D-Dimer ABG pH ABG pCO2 ABG pO2 ABG HCO3 ABG Total CO2 ABG O2 Saturation Potassium Carbon Dioxide BUN Creatinine Glucose POC Glucose (mg/dL) 209 H Phosphorus Total Creatine Kinase CK-MB (CK-2) Troponin I Triglycerides HDL Cholesterol Urine Protein Urine Blood Hyaline Casts Urine Mucus - Diagnostic Findings Chest x-ray: image reviewed (Labs x-rays a medications are all reviewed.) Assessment and Plan Assessment: Assessment Hypoxemic respiratory failure of unclear etiology Mental status changes, rule out CVA History of myocardial infarction History of pneumonia Acute kidney injury Coronary artery disease Angina pectoris Heart failure COPD Diabetes mellitus Hyperlipidemia Hypertension Myocardial infarction Sleep apnea syndrome Plan: Plan dated 11/26/2017 The patient's PEEP was increased from 5 to 8. I asked respiratory therapist to wean the FiO2 possible. The patient will be started on tube feeds. We'll do a daily eruption of sedation. Neurology was consulted because of possible CVA. We'll DC the ventilation perfusion lung scan. Additional recommendations and suggestions are forthcoming. Prognosis is guarded. We'll make a decision about antibiotics. Labs medications and x-rays are all reviewed. Critical care time 32 minutes Time with Patient: Greater than 30
[2017-11-26 12:10] LABS: Glucose,Whole Blood 210 mg/dL (75-99)
[2017-11-26] MEDS: INSULIN ASPART 100 UNIT/ML 1 ML 10 ML VIAL SQ SCH ×3 (12:32→21:08)
--- NOTE | 2017-11-26 13:00 | P.HPIM ---
History of Present Illness H&P Date: 11/26/17 Leonardo Hurst is a 57-year-old male who was brought to [facility] ED after having an episode of syncope, patient was evaluated in emergency room and was found to be hypoxemic he was started on high flow oxygen and then on BiPAP without significant improvement he was intubated in the emergency room and started on mechanical ventilation and was admitted to intensive care unit, pulmonary critical care consultation was requested. In the emergency room patient had an elevated d-dimer, and slight elevation in troponin level, he was started on IV heparin, computed tomography scan of the brain did not reveal any acute abnormality. Patient was also found to have elevated CPK level suggestive of rhabdomyolysis, and elevated BUN and creatinine. Currently patient is admitted to intensive care unit he is intubated sedated maintained on mechanical ventilation, his chest x-ray was suggestive of pneumonia he was started on IV antibiotics, he is maintained on IV heparin and IV Solu-Medrol. CT angiogram of the chest was not done due to elevated creatinine, cardiology consultation was requested due to elevated troponin levels, echocardiogram was ordered. Patient was noticed by ICU nurse to be moving all his extremities except the right lower extremity, reviewed there is no history of stroke or any history suggestive of previous weakness or analysis in the right lower extremity, neurology consultation was requested carotid Doppler was ordered and repeat computed tomography scan will be set for tomorrow morning. Patient was very confused on presentation to emergency room, toxicology screen was not done in the emergency room, will order a urine tox screen at this time which will be of limited value due to multiple medication that he has received already. Past Medical History Past Medical History: Coronary Artery Disease (CAD), Chest Pain / Angina, Heart Failure, COPD, Diabetes Mellitus, Hyperlipidemia, Hypertension, Myocardial Infarction (NM), Pneumonia, Renal Disease, Sleep Apnea/CPAP/BIPAP Additional Past Medical History / Comment(s): Low back pain, IDDM type II, diabetic neuropathy, gout, DOUG/CPap, home O2, ischemic cardiomyopathy, murmur, heart skips, Chronic kidney disease, Last Myocardial Infarction Date:: 2004 History of Any Multi-Drug Resistant Organisms: None Reported Past Surgical History: AICD, Heart Catheterization With Stent, Pacemaker Past Anesthesia/Blood Transfusion Reactions: No Reported Reaction Date of Last Stent Placement:: 2004 Type of Cardiac Device: Permanent Pacemaker, AICD Device Placement Date:: 09/2004 Past Psychological History: Bipolar Smoking Status: Former smoker Past Alcohol Use History: None Reported Additional Past Alcohol Use History / Comment(s): STARTED SMOKING AT AGE 19 SMOKED 1PPD THEN DECREASED TO 1 PACK EVERY 3 DAYS. Past Drug Use History: None Reported - Past Family History Father Family Medical History: Cancer Additional Family Medical History / Comment(s): Paternal grandfather with CAD Mother Family Medical History: Cancer Additional Family Medical History / Comment(s): Maternal grandmother had CAD. Mother had cancer. Medications and Allergies Home Medications Medication Instructions Recorded Confirmed Type Gabapentin [Neurontin] 300 mg PO DAILY 01/05/16 11/25/17 History amLODIPine [Norvasc] 10 mg PO DAILY 01/05/16 11/25/17 History hydrALAZINE HCL [Apresoline] 25 mg PO TID 01/05/16 11/25/17 History traZODone HCL [Desyrel] 200 mg PO HS 01/05/16 11/25/17 History Allopurinol [Zyloprim] 100 mg PO DAILY 05/21/17 11/25/17 History Escitalopram [Lexapro] 10 mg PO DAILY 05/21/17 11/25/17 History QUEtiapine [SEROquel] 200 mg PO HS 05/21/17 11/25/17 History cloNIDine HCL [Catapres] 0.2 mg PO TID 05/21/17 11/25/17 History Aspirin EC [Ecotrin Low Dose] 81 mg PO DAILY #100 tablet. 05/24/17 11/25/17 Rx Bumetanide [BUMEX] 4 mg PO BID #60 tab 05/24/17 11/25/17 Rx Insulin Aspart [NovoLOG Flexpen] 4 units SQ AC-TID #120 ml 06/12/17 11/25/17 Rx Insulin Glargine [Lantus] 20 unit SQ DAILY #600 vial 06/12/17 11/25/17 Rx Ipratropium-Albuterol Nebulize 3 ml INHALATION RT-QID PRN #120 neb 06/12/17 Rx [Duoneb 0.5 mg-3 mg/3 ml Soln] Albuterol Inhaler [Ventolin Hfa 2 puff INHALATION RT-QID PRN 11/25/17 11/25/17 History Inhaler] Fluticasone/Vilanterol [Breo 1 puff INHALATION RT-DAILY 11/25/17 11/25/17 History Ellipta 100-25 Mcg Inhaler] HYDROcodone/APAP 5-325MG [[place] 1 tab PO TID PRN 11/25/17 11/25/17 History 5-325] Ibuprofen [Motrin] 800 mg PO BID PRN 11/25/17 11/25/17 History Lisinopril [Zestril] 20 mg PO DAILY 11/25/17 11/25/17 History Pravastatin Sodium [Pravachol] 40 mg PO HS 11/25/17 11/25/17 History Pregabalin [Lyrica] 75 mg PO BID 11/25/17 11/25/17 History Allergies Allergy/AdvReac Type Severity Reaction Status Date / Time Penicillins Allergy Unknown Verified 11/25/17 16:42 Physical Exam Vitals: Vital Signs Temp Pulse Pulse Resp BP BP Pulse Ox 11/26/17 12:00 98.5 F 83 22 149/87 97 11/26/17 11:48 84 11/26/17 11:00 87 22 178/102 96 11/26/17 10:17 87 22 170/111 97 11/26/17 09:00 91 22 158/96 95 11/26/17 08:18 89 11/26/17 08:02 91 11/26/17 08:00 99.4 F 91 22 161/106 96 11/26/17 07:00 92 22 199/102 95 11/26/17 06:00 90 22 181/93 94 L 11/26/17 05:00 92 22 183/96 96 11/26/17 04:00 99.4 F 92 22 188/101 97 11/26/17 03:35 92 22 197/111 99 11/26/17 02:35 88 22 133/71 96 11/26/17 01:35 90 22 150/91 96 11/26/17 00:35 99.2 F 92 20 157/95 98 11/26/17 00:12 99.0 F 89 20 98 11/26/17 00:00 95 20 134/83 96 11/25/17 23:00 86 20 149/96 100 11/25/17 22:45 86 20 145/96 11/25/17 22:00 20 143/92 99 11/25/17 21:22 90 121/74 81 L 11/25/17 21:00 86 96/53 97 11/25/17 20:58 94 13 111/64 96 11/25/17 20:28 91 19 123/67 11/25/17 20:15 95 19 147/99 99 11/25/17 19:39 91 18 165/98 96 11/25/17 18:36 97 20 199/110 96 11/25/17 17:20 98 22 188/94 91 L 11/25/17 17:02 100 11/25/17 16:38 104 H 11/25/17 16:24 84 L 11/25/17 15:58 97.0 F L 101 H 20 186/100 91 L Intake and Output 11/25/17 11/26/17 11/26/17 22:59 06:59 14:59 Intake Total 63.25 3881.210 4545.586 Output Total 200 1063 310 Balance -136.75 106.225 774.586 Intake: IV 725 650 Azithromycin 500 mg In 125 100 Sodium Chloride 0.9% 250 ml @ 125 mls/hr IVPB ONCE STA Rx#:[id number] Magnesium Sulfate-D5w Pmx 200 1 gm In Dextrose/Water 1 100ml.bag @ 100 mls/hr IVPB Q1H GARIMA Rx#: [id number] Sodium Chloride 0.9% 1, 600 100 000 ml @ 100 mls/hr IV . Q10H STA Rx#:[id number] Sodium Phosphate 10 mmol 250 In Sodium Chloride 0.9% 250 ml @ 125 mls/hr IVPB Q2H GARIMA Rx#:[id number] Intake, IV Titration 63.25 290.225 368.586 Amount Heparin Sod,Pork in 0.45% 250.541 NaCl 25,000 unit In 0.45 % NaCl 1 500ml.bag @ 7.47 UNITS/KG/HR 19.99 mls/hr IV .Q24H GARIMA Rx#: [id number] Propofol 1,000 mg In 63.25 290.225 118.045 Empty Bag 1 bag @ Titrate IV .Q0M GARIMA Rx#: [id number] Tube Feeding 54 36 Other 100 30 Output: Gastric Drainage 200 200 Urine 200 863 110 Uretheral (Hernandez) 200 Other: Voiding Method Indwelling Catheter Indwelling Catheter Weight 133.81 kg 138 kg 137.3 kg Patient is intubated sedated maintained on mechanical ventilation tidal volume of 500 FiO2 60% and PEEP of 5 HEENT head normocephalic and atraumatic Case supple no JVD no goiter no lymphadenopathy Chest exam reveals a few scattered crackles no wheezing Cardiac exam reveals regular heart sounds no gallops no murmurs Abdomen is soft nontender no organomegaly with normal bowel sounds Extremity exam reveals no edema no cyanosis or clubbing Results CBC & Chem 7: 11/26/17 06:16 11/26/17 06:16 Labs: Abnormal Lab Results - Last 24 Hours (Table) 11/25/17 11/25/17 11/25/17 Range/Units 16:09 16:09 16:09 WBC (3.8-10.6) k/uL RBC 5.99 H (4.30-5.90) m/uL Hgb 17.9 H (13.0-17.5) gm/dL Hct 56.8 H (39.0-53.0) % RDW 16.3 H (11.5-15.5) % Plt Count 128 L (150-450) k/uL Neutrophils # (1.3-7.7) k/uL Neutrophils # (Manual) 8.54 H (1.3-7.7) k/uL Lymphocytes # (1.0-4.8) k/uL Lymphocytes # (Manual) 0.67 L (1.0-4.8) k/uL D-Dimer (<0.60) mg/L FEU ABG pH (7.35-7.45) ABG pCO2 (35-45) mmHg ABG pO2 (83-108) mmHg ABG HCO3 (21-25) mmol/L ABG Total CO2 (19-24) mmol/L ABG O2 Saturation (94-97) % Potassium 5.2 H (3.5-5.1) mmol/L Carbon Dioxide 31 H (22-30) mmol/L BUN 33 H (9-20) mg/dL Creatinine 2.11 H (0.66-1.25) mg/dL Glucose 139 H (74-99) mg/dL POC Glucose (mg/dL) (75-99) mg/dL Phosphorus (2.5-4.5) mg/dL Total Creatine Kinase 1253 H (55-170) U/L CK-MB (CK-2) 9.4 H* (0.0-2.4) ng/mL Troponin I 0.040 H* (0.000-0.034) ng/mL Triglycerides (<150) mg/dL HDL Cholesterol (40-60) mg/dL Urine Protein (Negative) Urine Blood (Negative) Hyaline Casts (0-2) /lpf Urine Mucus (None) /hpf 11/25/17 11/25/17 11/25/17 Range/Units 16:09 17:34 19:28 WBC (3.8-10.6) k/uL RBC (4.30-5.90) m/uL Hgb (13.0-17.5) gm/dL Hct (39.0-53.0) % RDW (11.5-15.5) % Plt Count (150-450) k/uL Neutrophils # (1.3-7.7) k/uL Neutrophils # (Manual) (1.3-7.7) k/uL Lymphocytes # (1.0-4.8) k/uL Lymphocytes # (Manual) (1.0-4.8) k/uL D-Dimer 1.17 H (<0.60) mg/L FEU ABG pH 7.23 L 7.23 L (7.35-7.45) ABG pCO2 75 H* 77 H* (35-45) mmHg ABG pO2 66 L 74 L (83-108) mmHg ABG HCO3 32 H 32 H (21-25) mmol/L ABG Total CO2 34 H 34 H (19-24) mmol/L ABG O2 Saturation 91.0 L (94-97) % Potassium (3.5-5.1) mmol/L Carbon Dioxide (22-30) mmol/L BUN (9-20) mg/dL Creatinine (0.66-1.25) mg/dL Glucose (74-99) mg/dL POC Glucose (mg/dL) (75-99) mg/dL Phosphorus (2.5-4.5) mg/dL Total Creatine Kinase (55-170) U/L CK-MB (CK-2) (0.0-2.4) ng/mL Troponin I (0.000-0.034) ng/mL Triglycerides (<150) mg/dL HDL Cholesterol (40-60) mg/dL Urine Protein (Negative) Urine Blood (Negative) Hyaline Casts (0-2) /lpf Urine Mucus (None) /hpf 11/25/17 11/26/17 11/26/17 Range/Units 19:37 00:14 00:34 WBC (3.8-10.6) k/uL RBC (4.30-5.90) m/uL Hgb (13.0-17.5) gm/dL Hct (39.0-53.0) % RDW (11.5-15.5) % Plt Count (150-450) k/uL Neutrophils # (1.3-7.7) k/uL Neutrophils # (Manual) (1.3-7.7) k/uL Lymphocytes # (1.0-4.8) k/uL Lymphocytes # (Manual) (1.0-4.8) k/uL D-Dimer (<0.60) mg/L FEU ABG pH (7.35-7.45) ABG pCO2 (35-45) mmHg ABG pO2 (83-108) mmHg ABG HCO3 (21-25) mmol/L ABG Total CO2 (19-24) mmol/L ABG O2 Saturation (94-97) % Potassium (3.5-5.1) mmol/L Carbon Dioxide (22-30) mmol/L BUN (9-20) mg/dL Creatinine (0.66-1.25) mg/dL Glucose (74-99) mg/dL POC Glucose (mg/dL) 104 H (75-99) mg/dL Phosphorus (2.5-4.5) mg/dL Total Creatine Kinase 1087 H (55-170) U/L CK-MB (CK-2) 6.4 H* (0.0-2.4) ng/mL Troponin I 0.061 H* (0.000-0.034) ng/mL Triglycerides (<150) mg/dL HDL Cholesterol (40-60) mg/dL Urine Protein 1+ H (Negative) Urine Blood Small H (Negative) Hyaline Casts 9 H (0-2) /lpf Urine Mucus Rare H (None) /hpf 03/11/26/17 11/26/17 Range/Units 00:44 06:16 06:16 WBC (3.8-10.6) k/uL RBC (4.30-5.90) m/uL Hgb (13.0-17.5) gm/dL Hct (39.0-53.0) % RDW (11.5-15.5) % Plt Count (150-450) k/uL Neutrophils # (1.3-7.7) k/uL Neutrophils # (Manual) (1.3-7.7) k/uL Lymphocytes # (1.0-4.8) k/uL Lymphocytes # (Manual) (1.0-4.8) k/uL D-Dimer (<0.60) mg/L FEU ABG pH (7.35-7.45) ABG pCO2 48 H (35-45) mmHg ABG pO2 62 L (83-108) mmHg ABG HCO3 31 H (21-25) mmol/L ABG Total CO2 32 H (19-24) mmol/L ABG O2 Saturation 93.6 L (94-97) % Potassium (3.5-5.1) mmol/L Carbon Dioxide (22-30) mmol/L BUN 38 H (9-20) mg/dL Creatinine 2.33 H (0.66-1.25) mg/dL Glucose 173 H (74-99) mg/dL POC Glucose (mg/dL) (75-99) mg/dL Phosphorus 2.0 L (2.5-4.5) mg/dL Total Creatine Kinase 830 H (55-170) U/L CK-MB (CK-2) 3.9 H* (0.0-2.4) ng/mL Troponin I 0.071 H* (0.000-0.034) ng/mL Triglycerides 308 H (<150) mg/dL HDL Cholesterol 39 L (40-60) mg/dL Urine Protein (Negative) Urine Blood (Negative) Hyaline Casts (0-2) /lpf Urine Mucus (None) /hpf 11/26/17 11/26/17 11/26/17 Range/Units 06:16 07:25 08:22 WBC 11.0 H (3.8-10.6) k/uL RBC (4.30-5.90) m/uL Hgb (13.0-17.5) gm/dL Hct (39.0-53.0) % RDW 16.6 H (11.5-15.5) % Plt Count 128 L (150-450) k/uL Neutrophils # 9.2 H (1.3-7.7) k/uL Neutrophils # (Manual) (1.3-7.7) k/uL Lymphocytes # 0.9 L (1.0-4.8) k/uL Lymphocytes # (Manual) (1.0-4.8) k/uL D-Dimer (<0.60) mg/L FEU ABG pH (7.35-7.45) ABG pCO2 48 H (35-45) mmHg ABG pO2 70 L (83-108) mmHg ABG HCO3 31 H (21-25) mmol/L ABG Total CO2 32 H (19-24) mmol/L ABG O2 Saturation (94-97) % Potassium (3.5-5.1) mmol/L Carbon Dioxide (22-30) mmol/L BUN (9-20) mg/dL Creatinine (0.66-1.25) mg/dL Glucose (74-99) mg/dL POC Glucose (mg/dL) 169 H (75-99) mg/dL Phosphorus (2.5-4.5) mg/dL Total Creatine Kinase (55-170) U/L CK-MB (CK-2) (0.0-2.4) ng/mL Troponin I (0.000-0.034) ng/mL Triglycerides (<150) mg/dL HDL Cholesterol (40-60) mg/dL Urine Protein (Negative) Urine Blood (Negative) Hyaline Casts (0-2) /lpf Urine Mucus (None) /hpf 11/26/17 11/26/17 Range/Units 09:55 12:08 WBC (3.8-10.6) k/uL RBC (4.30-5.90) m/uL Hgb (13.0-17.5) gm/dL Hct (39.0-53.0) % RDW (11.5-15.5) % Plt Count (150-450) k/uL Neutrophils # (1.3-7.7) k/uL Neutrophils # (Manual) (1.3-7.7) k/uL Lymphocytes # (1.0-4.8) k/uL Lymphocytes # (Manual) (1.0-4.8) k/uL D-Dimer (<0.60) mg/L FEU ABG pH (7.35-7.45) ABG pCO2 (35-45) mmHg ABG pO2 (83-108) mmHg ABG HCO3 (21-25) mmol/L ABG Total CO2 (19-24) mmol/L ABG O2 Saturation (94-97) % Potassium (3.5-5.1) mmol/L Carbon Dioxide (22-30) mmol/L BUN (9-20) mg/dL Creatinine (0.66-1.25) mg/dL Glucose (74-99) mg/dL POC Glucose (mg/dL) 209 H 210 H (75-99) mg/dL Phosphorus (2.5-4.5) mg/dL Total Creatine Kinase (55-170) U/L CK-MB (CK-2) (0.0-2.4) ng/mL Troponin I (0.000-0.034) ng/mL Triglycerides (<150) mg/dL HDL Cholesterol (40-60) mg/dL Urine Protein (Negative) Urine Blood (Negative) Hyaline Casts (0-2) /lpf Urine Mucus (None) /hpf Microbiology - Last 24 Hours (Table) 11/25/17 20:12 Gram Stain - Preliminary Sputum Sputum Culture - Preliminary Assessment and Plan Plan: #1 episode of syncope #2 acute hypoxic respiratory failure, requiring intubation and mechanical ventilation #3 retrocardiac infiltrate on chest x-ray suggestive of pneumonia started on IV antibiotics #4 elevated d-dimer, patient was started on IV heparin, awaiting further testing #5 slight elevation in troponin level cardiology consult is requested patient is maintained on IV heparin #6 rhabdomyolysis maintained on IV fluid Will monitor kidney function #7 acute renal failure continue with IV fluid monitor kidney function #8 COPD exacerbation maintained on IV Solu-Medrol and inhaled bronchodilators #9 underlying history of diabetes mellitus maintained on insulin sliding scale #10 underlying history of cardiomyopathy, patient has history of AICD placement #11 underlying history of coronary artery disease with myocardial infarction in the past with history of cardiac catheterization and stent placement #12 underlying history of sleep apnea #13 underlying history of hypertension #14 underlying history of hyperlipidemia #15 lack of movement in the right lower extremity spontaneously and in response to stimuli, neurology consultation was requested, will check echocardiogram and carotid Doppler, will recheck computed tomography scan of the brain in a.m. Today patient was seen and examined, medication and labs were reviewed Input from pulmonary critical care and emergency room physician were reviewed Consultation for cardiology and neurology were initiated Will follow closely
--- NOTE | 2017-11-26 13:34 | CONS ---
CONSULTATION CHIEF COMPLAINT: Syncope. This is a 57-year-old gentleman with history of coronary artery disease, status post prior angioplasty, myocardial infarction, questionable AICD, chronic renal insufficiency, sleep apnea who was brought into the emergency room apparently having had a syncope at home. Subsequently, his oxygen saturations have diminished. He became confused, got intubated and is currently on vent. Cardiology has been consulted because of his cardiac history and mild troponin elevation. His troponins are mildly elevated, but historically they have always been elevated and are probably related to underlying renal failure. Since admission, he has not had any tachy or bradyarrhythmias and chest x-ray does not reveal significant pneumonia or congestive heart failure. I am going to get the device checked to make sure that he did not have episodes of ventricular tachycardia or ventricular fibrillation. He is currently intubated on vent and sedated. REVIEW OF SYSTEMS: I am unable to obtain from the patient. PAST MEDICAL HISTORY: Past medical history is significant for coronary artery disease, ischemic cardiomyopathy, diabetes, hypertension, dyslipidemia, COPD. PAST SURGICAL HISTORY: Past surgical history is significant for AICD, CAD. MEDICATIONS: Medications at home included Norvasc, Neurontin, hydralazine, Desyrel, Zyloprim, Lexapro, Seroquel, Catapres, aspirin, Bumex, insulin, albuterol. Family history and social history are as per chart. PHYSICAL EXAMINATION: On exam, patient is intubated on vent and sedated. Afebrile. Heart rate is 80 beats per minute. Blood pressure is 140/87, respiratory rate is 18. Chest exam reveals diminished air entry at the bases. Heart exam reveals first and second heart sounds. No gallop. Has a systolic murmur at the left lower sternal border. Abdomen is soft. Examination of the extremities did not reveal any edema. Peripheral pulses are palpable. LABS: Labs show a hemoglobin of 16.6, potassium is 4.4, BUN is 38, creatinine is 2.3. LDL cholesterol is 68. ASSESSMENT: 1. Respiratory failure. 2. Mild troponin elevation probably related to renal failure. 3. Chronic renal insufficiency. 4. History of cardiomyopathy, status post automated implantable cardioverter- defibrillator. 5. Elevated D-dimer, rule out pulmonary embolism. PLAN: I am going to review his outpatient records. I agree with the current management plans. The patient is currently on IV heparin, which I think we should continue. It is possible the patient had a pulmonary embolism. We cannot do CT scan on him because of the elevated creatinine. He is not a candidate for V/Q scan as he is intubated on vent. We will control the blood pressures optimally. Obtain a 2D echo to evaluate his LV function. YENI / JYOTI: [id number] /
[2017-11-26] MEDS: HEPARIN SOD,PORK IN 0.45% NACL 25,000 UNIT in 0.45% NACL 1 500ML.BAG IV SCH (14:11)
--- NOTE | 2017-11-26 14:15 | CDI ---
Last Revision, August 2017 Documentation Clarification Form Date: November 26, 2017 From: Sharlene Spain RN Admit Date: 11/25/2017 6:49:00 PM Patient Name: Leonardo Hurst Visit Number: [id number] ATTENTION: The Clinical Documentation Specialists (CDI) and [facility] Coding Staff appreciate your assistance in clarifying documentation. Please respond to the clarification below the line at the bottom and electronically sign. The CDI & [facility] Coding staff will review the response and follow-up if needed. Please note: Queries are made part of the Legal Health Record. If you have any questions, please contact the author of this message via ITS. Dr. Tess Regalado, History/Risk Factors:. cad, chest pain, chf, copd , dm, hyperlipidemia, htn, mi, pneumonia, renal disease, sleep apnea Clinical Indicators: VS/Pulse OX: on admission 91% on aerosol mask Chest X Ray: pulmonary edema likely on the basis of decompensated heart failure Treatment: Nasal Cannula, IV Lasix In your professional opinion, can you please clarify the acuity and type of CHF if known? Systolic Heart Failure: Acute Chronic Acute on Chronic Diastolic Heart Failure: Acute Chronic Acute on Chronic Systolic & Diastolic Heart Failure: Acute Chronic Acute on Chronic Heart Failure Unable to Determine Other, please specify Please continue to document in your progress notes , under line below or/and on the discharge summary in order to capture severity of illness and risk of mortality. Include clinical findings that support your diagnosis. MTDD
--- NOTE | 2017-11-26 14:24 | CDI ---
Last Revision, August 2017 Documentation Clarification Form Date: November 26, 2017 From: Sharlene Spain RN Admit Date: 11/25/2017 6:49:00 PM Patient Name: Leonardo Hurst Visit Number: [id number] ATTENTION: The Clinical Documentation Specialists (CDI) and [facility] Coding Staff appreciate your assistance in clarifying documentation. Please respond to the clarification below the line at the bottom and electronically sign. The CDI & [facility] Coding staff will review the response and follow-up if needed. Please note: Queries are made part of the Legal Health Record. If you have any questions, please contact the author of this message via ITS. Dr. Tess Regalado , Pneumonia was documented in your notes on: 11/25, 11/26, and In the H&P, History/Risk Factors: cad, chest pain, chf, copd , dm, hyperlipidemia, htn, mi, pneumonia, renal disease, sleep apnea Clinical Indicators: WBC on admission 9.6, on 11/26: 11.0 X-ray: samll pleural effusion and atelectasis or pneumonia Treatment: Antibiotics: IV Azithromycin, IV Rocephin Breathing Tx: Albuterol, Duobeb In order to capture the severity of condition, please clarify if the condition signifies and you are treating for: Bacterial Pneumonia, specify causal organism (if known) Gram Negative Pneumonia Other bacteria (please specify) Viral Pneumonia, specify casual organism (if known) Ventilator Associated Pneumonia Healthcare Acquired Pneumonia/Pneumonia, unspecified Other, please specify Unable to determine Please continue to document in your progress notes, under the line below or/ and in the discharge summary in order to capture severity of illness and risk of mortality. Include clinical findings that support your diagnosis. MTDD
[2017-11-26] MEDS: IPRATROPIUM-ALBUTEROL 3 ML NEB INHALATION SCH ×2 (14:51→19:22)
[2017-11-26 17:37] LABS: Hemoglobin A1C 6.9 % (4.0-6.0)
[2017-11-26 17:38] LABS: Urine Alcohol Negative (Negative); Urine Barbiturate Negative (Negative); Urine Cocaine Negative (Negative); Urine Methadone Negative (Negative); Urine Opiates Positive (Negative); Urine Phencyclidine Negative (Negative)
--- NOTE | 2017-11-26 18:16 | CONS ---
CONSULTATION DATE OF CONSULTATION: 11/26/17 REASON FOR CONSULTATION: The patient was seen this morning in consultation for renal failure. HISTORY OF PRESENT ILLNESS: Patient is a 57-year-old male who was admitted to the hospital the last night with history of syncope and patient himself called EMS. Upon arrival, he was confused. His pulse ox was significantly low at 50%, and patient was brought into the ER. He was eventually intubated in the ER and brought up to the ICU. Blood pressure has been on the higher side. Hernandez catheter was placed. Initially patient did have good urine output, however, now it seems to have slowed down to 10-15 mL/hour. The patient had been on nonsteroidal anti-inflammatory agents at home IV dye that he received recently. HOME MEDICATIONS: Prior to admission included: 1. Neurontin. 2. Norvasc. 3. Hydralazine. 4. Desyrel. 5. Zyloprim. 6. Lexapro. 7. Seroquel. 8. Clonidine. 9. [place]. 10.Motrin. 11.Zestril. 12.Pravachol. 13.Lyrica. 14.The patient had been on Bumex, insulin, aspirin. ALLERGIES: Include PENICILLIN. PAST MEDICAL HISTORY: Coronary artery disease, COPD, heart failure, chest pain, angina, hyperlipidemia, type 2 diabetes, hypertension, history of IA, cardiac dysrhythmia. PAST SURGICAL HISTORY: Cardiac catheterization, coronary stent placement, pacemaker placement. SOCIAL HISTORY: Patient is a former smoker. No history of drug abuse or alcohol abuse. REVIEW OF SYSTEMS: Cannot be obtained. EXAMINATION: Patient is currently sedated. He is on the vent. His FiO2 is at 60%. Blood pressure this morning was 170/111, heart rate of 80 per minute. Patient is afebrile. Examination of the heart S1, S2. Examination of the lungs bilateral breath sounds are heard. ABDOMEN: Soft, distended, obese, nontender. Examination lower extremity shows edema 1+ bilaterally with chronic skin changes. LAB: Show an sodium 145, potassium 4.4, BUN 38, serum creatinine 2.3, hemoglobin of 6.6 g/dL, phosphorus 2.0. CK was 830. UA shows 1+ protein. No significant WBCs were seen. ASSESSMENT: 1. Acute kidney injury, acute tubular necrosis currently oliguric. The patient has not been hypotensive recently. However, I did see systolic blood pressure of 96 mmHg late last night. This may have been when he was intubated. He was on the NSAIDs as well prior to admission, which definitely contributed to his acute kidney injury. There is no evidence of acute interstitial nephritis based on the urinalysis. At this time, we can continue with the IV fluids and I will give a dose of Lasix to help with the urine output. 2. Hypertension. Continue home medications. Hold off on the LYNSEY inhibitors and avoid hypotension. 3. Possible pneumonia maintained on empiric antibiotics. 4. Mild rhabdomyolysis. 5. Type 2 diabetes. 6. Rule out chronic kidney disease. It does appear that patient has some degree of chronic kidney disease. His previous creatinine was 1.6 mg/dL in June of 2017, placing him at stage III. Etiologies possibly diabetic nephropathy with evidence of trace protein in the urine as well as nephrosclerosis. I am going to check a TSH level as well. PLAN: Continue IV fluids. Check TSH and Lasix x1. Continue to avoid nephrotoxic agents. Avoid NSAIDs and hold off on LYNSEY inhibitors. Repeat labs in a.m. Thank you for this consultation. MMODL / IJN: [id number] /
--- NOTE | 2017-11-26 19:10 | ECHOF ---
Referral Reason:acute respiratory failure MEASUREMENTS -------- HEIGHT: 188.0 cm WEIGHT: 137.0 kg BP: 170/111 RVIDd: 3.3 cm (< 3.3) IVSd: 1.6 cm (0.6 - 1.1) LVIDd: 6.2 cm (3.9 - 5.3) LVPWd: 1.5 cm (0.6 - 1.1) IVSs: 1.8 cm LVIDs: 5.2 cm LVPWs: 1.8 cm LAESV Index (A-L): 24.53 ml/m Ao Diam: 3.6 cm (2.0 - 3.7) AV Cusp: 2.4 cm (1.5 - 2.6) LA Diam: 4.5 cm (2.7 - 3.8) EPSS: 1.6 cm MV E Rogers: 0.52 m/s MV DecT: 218 ms MV A Rogers: 0.77 m/s MV E/A Ratio: 0.68 RAP: 15.00 mmHg RVSP: 27.92 mmHg MV EF SLOPE: 78.31 mm/s (70 - 150) MV EXCURSION: 1.85 cm (> 18.000) FINDINGS -------- Sinus rhythm. This was a technically difficult study with suboptimal views. The left ventricular size is normal. There is moderate concentric left ventricular hypertrophy. T here is mild global hypokinesis of LV . Overall left ventricular systolic function is mildly impair ed with, an EF between 45 - 50 %. The right ventricle is mildly enlarged. Normal LA size by volume 22+/-6 ml/m2. The right atrium was not well visualized. 3ml of Lumason was utilized for enhancement of images. Aortic valve is trileaflet and is mildly thickened. Trace amount of aortic regurgitation. There is no evidence of aortic stenosis. The mitral valve leaflets are mildly thickened. There is trace to mild mitral regurgitation. Trace tricuspid regurgitation present. There is no evidence of pulmonary hypertension. The right ventricular systolic pressure, as measured by Doppler, is 27.92mmHg. Trace/mild (physiologic) pulmonic regurgitation. The aortic root size is normal. The inferior vena cava is dilated with no significant inspiratory collapse which is consistent estima anna right atrial pressure of >20 mmHg. The pericardium is normal. CONCLUSIONS -------- 1. Sinus rhythm. 2. This was a technically difficult study with suboptimal views. 3. The left ventricular size is normal. 4. There is moderate concentric left ventricular hypertrophy. 5. There is mild global hypokinesis of LV . 6. Overall left ventricular systolic function is mildly impaired with, an EF between 45 - 50 %. 7. The right ventricle is mildly enlarged. 8. Normal LA size by volume 22+/-6 ml/m2. 9. The right atrium was not well visualized. 10. 3ml of Lumason was utilized for enhancement of images. 11. Aortic valve is trileaflet and is mildly thickened. 12. Trace amount of aortic regurgitation. 13. The mitral valve leaflets are mildly thickened. 14. There is trace to mild mitral regurgitation. 15. There is no evidence of pulmonary hypertension. 16. The right ventricular systolic pressure, as measured by Doppler, is 27.92mmHg. 17. Trace/mild (physiologic) pulmonic regurgitation. 18. The aortic root size is normal. 19. The inferior vena cava is dilated with no significant inspiratory collapse which is consistent es timated right atrial pressure of >20 mmHg. 20. The pericardium is normal. [employer] MANAGER: Bernabe Fisher RDCS
--- NOTE | 2017-11-26 19:39 | CT ---
EXAMINATION: CT brain wo con DATE AND TIME: 11/26/2017 7:06 PM ORDERING PROVIDER: Jennifer Sosa CLINICAL INDICATION: right leg weakness, follow-up TECHNIQUE: The bones and joints and soft tissues are COMPARISON: 11/25/2017 5:54 PM DESCRIPTION: The calvarium is intact. There is no intracranial hemorrhage. There is no mass or mass effect. There is no definite new attenu ation defect. Remainder of the intra-axial and extra-axial compartment examination is unremarkable. The paranasal sinuses, middle ear cavities, and mastoid sinus air cells are clear. The nasal cavities are full of soft tissue, which can correlate with a clinical diagnosis of nasal po lyps. The orbits are intact. Incidental note is made of bilateral prominence of the temporalis, which can BE seen with a clinical diagnosis of bruxism. IMPRESSION: NO ACUTE CRANIAL/INTRACRANIAL PROCESS.
[2017-11-26] MEDS: cefTRIAXone IN SWFI 1,000 MG/10 ML SYRINGE IVP SCH (20:03)
[2017-11-26 20:27] LABS: Glucose,Whole Blood 142 mg/dL (75-99)
[2017-11-26] MEDS: AZITHROMYCIN 500 MG in SODIUM CHLORIDE 0.9% 250 ML IVPB SCH (21:09)
[2017-11-26] MEDS: QUEtiapine 200 MG TAB PO SCH (21:10)
[2017-11-26] MEDS: traZODone HCL 100 MG TAB PO SCH (21:10)
--- NOTE | 2017-11-26 22:51 | US ---
EXAMINATION TYPE: US carotid duplex BILAT DATE OF EXAM: 11/26/2017 COMPARISON: NONE CLINICAL HISTORY: R leg weakness. MD, Hypoxia, AMS, RF, Pneumonia exam limitations due to patient on vent. EXAM MEASUREMENTS: RIGHT: Peak Systolic Velocity (PSV) cm/sec ----- Right CCA: 54.6 ----- Right ICA: 43.5 ----- Right ECA: 53.1 ICA/CCA ratio: 0.8 RIGHT: End Diastole cm/sec ----- Right CCA: 11.6 ----- Right ICA: 12.1 ----- Right ECA: 13.9 LEFT: Peak Systolic Velocity (PSV) cm/sec ----- Left CCA: 37.3 ----- Left ICA: 46.9 ----- Left ECA: 54.0 ICA/CCA ratio: 1.3 LEFT: End Diastole cm/sec ----- Left CCA: 5.4 ----- Left ICA: 9.9 ----- Left ECA: 6.0 VERTEBRALS (direction of flow): Right Vertebral: Antegrade Left Vertebral: Antegrade Rhythm: Normal Vessels dive deep. No significant stenosis seen IMPRESSION: There is antegrade flow in the vertebral arteries. The images and measurements suggest c lose to 0% stenosis in both internal carotid arteries. Criteria for Assigning % of Stenosis / Diameter reduction (Estimation based on the indirect measurements of the internal carotid artery velocities (ICA PSV). 1. Normal (no stenosis)=ICA PSV < 125 cm/s: ratio < 2.0: ICA EDV<40 cm/s. 2. Less than 50% stenosis=ICA PSV < 125 cm/s: ratio < 2.0: ICA EDV<40 cm/s. 3. 50 to 69% stenosis=ICA PSV of 125 to 230 cm/s: ration 2.0 ? 4.0: ICA EDV 40-100 cm/s. 4. Greater than 70% stenosis to near occlusion= ICA PSV > 230 cm/s: ratio > 4.0: ICA EDV > 100 cm/s. 5. Near occlusion= ICA PSV velocities may be low or undetectable: variable ratio and ICA EDV. 6. Total occlusion=unable to detect flow.
[2017-11-27] MEDS: IPRATROPIUM-ALBUTEROL 3 ML NEB INHALATION SCH ×7 (00:17→23:39)
[2017-11-27 00:32] LABS: Glucose,Whole Blood 146 mg/dL (75-99)
[2017-11-27] MEDS: INSULIN ASPART 100 UNIT/ML 1 ML 10 ML VIAL SQ SCH ×7 (00:41→23:42)
[2017-11-27] MEDS: PROPOFOL 1,000 MG in EMPTY BAG 1 BAG IV SCH (03:41)
[2017-11-27 03:47] LABS: Glucose,Whole Blood 136 mg/dL (75-99)
[2017-11-27] MEDS: HEPARIN SOD,PORK IN 0.45% NACL 25,000 UNIT in 0.45% NACL 1 500ML.BAG IV SCH ×2 (03:50→22:05)
[2017-11-27 04:30] LABS: Anisocytosis Slight; Basophils % (A) 0 %; Eosinophils # (A) 0.1 k/uL (0-0.7); Eosinophils % (A) 0 %; HCT 46.5 % (39.0-53.0); HGB 14.7 gm/dL (13.0-17.5); Hypochromasia Slight; Lymphocytes # (A) 1.9 k/uL (1.0-4.8); Lymphocytes % (A) 15 %; MCHC 31.6 g/dL (31.0-37.0); MCV 91.6 fL (80.0-100.0); Mean Platelet Volume 9.7; Monocytes # (A) 1.1 k/uL (0-1.0); Monocytes % (A) 9 %; Neutrophils # (A) 9.5 k/uL (1.3-7.7); Neutrophils % (A) 74 %; Platelet Count 127 k/uL (150-450); RBC 5.08 m/uL (4.30-5.90); WBC 12.9 k/uL (3.8-10.6)
[2017-11-27 04:50] LABS: INR 1.1 (<1.2); Prothrombin Time 10.9 sec (9.0-12.0)
[2017-11-27 05:01] LABS: Albumin 2.6 g/dL (3.5-5.0); Magnesium 2.4 mg/dL (1.6-2.3); Phosphorus 3.3 mg/dL (2.5-4.5); Potassium 3.9 mmol/L (3.5-5.1); Total Bilirubin 0.3 mg/dL (0.2-1.3)
[2017-11-27 05:30] LABS: ABG HCO3 30 mmol/L (21-25); ABG Oxygen Saturation 96.2 % (94-97); ABG PCO2 45 mmHg (35-45); ABG PH 7.44 (7.35-7.45); ABG PO2 77 mmHg (83-108); ABG TCO2 32 mmol/L (19-24)
--- NOTE | 2017-11-27 06:29 | CONS ---
CONSULTATION DATE OF CONSULTATION: 11/26/2017. CHIEF COMPLAINT: Right lower extremity weakness. HISTORY OF PRESENT ILLNESS: Mr. Hurst is a 57-year-old, male, who is being evaluated by the neurology service per the request of Dr. Regalado for right lower extremity weakness. The patient was brought into [facility] Emergency Room yesterday after he had a syncopal episode. In the emergency room, he was found to be quite hypoxic and he was eventually sedated and intubated to protect his airway. He was admitted to the intensive care unit for further workup and management. His D-dimer was elevated and the patient was started on a heparin drip. He was unable to undergo any contrasted CT imaging due to renal insufficiency. His BUN and creatinine today are 38 and 2.33 respectively. A sedation holiday was done in the intensive care unit and the patient was noticed that he was moving his left lower extremity and bilateral upper extremities spontaneously but no movement was seen in the right lower extremity. A neurology consultation was obtained. A repeat CT scan of the brain has been ordered for later this evening. At the time of my evaluation, the patient is sedated again as his vital signs became unstable after 2 hours of being off sedation. No seizure-like activity has been described. His CBC did show mild leukocytosis at 11.0. His cardiac enzymes showed elevated CPK at 1087, elevated CK-MB at 6.4, and elevated troponin at 0.061. His fasting lipid panel was normal except for elevated triglycerides at 308. His urinalysis was normal. PAST MEDICAL HISTORY: Coronary artery disease, angina, heart failure, chronic obstructive pulmonary disease, sleep apnea, chronic low back pain, diabetes, dyslipidemia, hypertension, history of myocardial infarction, diabetic polyneuropathy, gout, chronic renal insufficiency, history of AICD implant, coronary artery stent placement, history of bipolar disorder. SOCIAL HISTORY: The patient is a current every day smoker. There is no history of any alcohol or drug use. FAMILY HISTORY: Positive for cancer and heart disease. HOME MEDICATIONS: Reviewed in the chart. ALLERGIES: PENICILLIN. REVIEW OF SYSTEMS: Unable to obtain, as the patient is intubated and sedated. PHYSICAL EXAM: Vital signs show a temperature of 98.5, pulse 81, respiration 22, blood pressure 125/76. GENERAL APPEARANCE: The patient is a mildly obese, male, who is intubated and sedated. HEENT: Normocephalic, atraumatic. Endotracheal tube is intact. No obvious facial asymmetry is seen. Neck is supple with no masses felt. CARDIOVASCULAR: Regular rate and rhythm. ABDOMEN: Nondistended. Extremities showed trace edema with no clubbing seen. NEUROLOGICAL EXAM: The patient is intubated and sedated. He does not respond to any verbal stimuli. He does move bilateral upper extremities and left lower extremity to any painful stimuli. He does not move his right lower extremity with any painful stimuli in that extremity. He does grimace with painful stimulation in all 4 extremities. Plantar reflex showed silent toes bilaterally. No facial asymmetry is seen on cranial nerve testing. IMPRESSION: 1. Right lower extremity weakness. 2. Acute ischemic stroke. 3. Respiratory failure. 4. Questionable pulmonary embolism. 5. Elevated cardiac enzymes. 6. Chronic renal insufficiency. RECOMMENDATION: Although the patient is sedated again, he is not moving his right lower extremity to any painful stimuli although the rest of his extremities were moving with stimuli. There is concern for an acute ischemic stroke. The patient is currently on a heparin drip due to elevated D-dimers. As mentioned above, a CT of the chest could not be done due to his renal insufficiency. No further anti-platelet therapy is needed while he is on heparin drip. A repeat CT scan of the brain has been ordered. His fasting lipid panel was reviewed and his LDL and total cholesterol were normal, but his triglycerides were elevated. I will order a serum homocysteine level. An EEG has also been ordered. Pulmonology is following the patient. Continue the rest of your current workup and management. I will continue to follow with you. Further recommendations to follow. Thank you Dr. Regalado for allowing me to participate in the care of your patient. If you have any questions, please feel free to contact me. MMODL / IJN: [id number] /
--- NOTE | 2017-11-27 08:02 | XR ---
EXAMINATION TYPE: XR chest 1V portable DATE OF EXAM: 11/27/2017 COMPARISON: 11/26/2017 HISTORY: Ventilatory dependent respiratory failure. TECHNIQUE: Single frontal view of the chest is obtained. FINDINGS: There is appropriate placement of the endotracheal tube, enteric tube, and left-sided card iac device. Cardiomegaly remains. There is continued improved aeration of the lungs with known right- sided focal opacity. New retrocardiac opacity obscures the costophrenic angle and may relate to a tra ce pleural effusion and left basilar airspace disease. IMPRESSION: 1. Appropriately placed lines and tubes. 2. Improved aeration of the right lung. 3. New retrocardiac opacity obscuring the costophrenic angle and may represent a small pleural effusi on and left basilar atelectasis or developing pneumonia.
[2017-11-27 08:28] LABS: Glucose,Whole Blood 131 mg/dL (75-99)
[2017-11-27] MEDS: SODIUM CHLORIDE 0.9% 1,000 ML IV SCH (08:51)
[2017-11-27] MEDS: ASPIRIN 325 MG TAB PO SCH (09:41)
[2017-11-27] MEDS: ESCITALOPRAM 10 MG TAB PO SCH (09:41)
[2017-11-27] MEDS: ALLOPURINOL 100 MG TAB PO SCH (09:42)
[2017-11-27] MEDS: CHLORHEXIDINE GLUCONATE 15 ML CUP MUCOUS MEM SCH (09:42)
[2017-11-27] MEDS: PANTOPRAZOLE 40 MG/10 ML VIAL IV SCH (09:42)
[2017-11-27] MEDS: hydrALAZINE HCL 25 MG TAB PO SCH (09:42)
[2017-11-27] MEDS: cloNIDine HCL 0.2 MG TAB PO SCH ×3 (09:42→22:06)
[2017-11-27] MEDS: GABAPENTIN 300 MG CAP PO SCH (09:42)
[2017-11-27] MEDS: PREGABALIN 75 MG CAP PO SCH ×2 (09:47→20:34)
--- NOTE | 2017-11-27 09:59 | P.PN ---
Subjective Progress Note Date: 11/27/17 Principal diagnosis: Respiratory failure Progress note dated 11/27/2017 This a 57-year-old black male with a history of hypoxemic respiratory failure status changes my cardial infarction pneumonia acute kidney injury CAD angina pectoris heart failure COPD diabetes hyperlipidemia hypertension myocardial infarction sleep apnea syndrome. The patient currently is on the ventilator. The patient is on the assist control mode with a rate of 22 tidal volume 500 FiO2 of 60% and PEEP of 8. Arterial blood gases show a PaO2 of 77 a pCO2 45 and a pH of 7.49. The patient has a saline IV at 100 mL an hour propofol at 20 mics per kilogram per minute heparin via weightbase protocol and vital high protein at a rate of 36 with a goal of 36 mL/h. We will attempt a daily eruption of sedation a spontaneous breathing trial in the pre-PSV of a CPAP of 5. The patient may not be ready for weaning as yet. The patient's chest x-ray shows a minimal infiltrate/atelectasis at the left lung base. May relate to aspiration. Objective - Vital Signs Vital signs: Vital Signs Temp 98.5 F 11/27/17 08:00 Pulse 67 11/27/17 09:00 Resp 22 11/27/17 09:00 BP 149/88 11/27/17 09:00 Pulse Ox 99 11/27/17 09:00 Intake & Output 11/26/17 11/27/17 11/27/17 18:59 06:59 18:59 Intake Total 0359.441 2761.053 350.24 Output Total 543 955 145 Balance 8204.538 8263.053 205.24 Weight 137.3 kg 137.8 kg Intake: IV 1200 1450 150 Azithromycin 500 mg In 100 250 Sodium Chloride 0.9% 250 ml @ 125 mls/hr IVPB ONCE STA Rx#:[id number] Magnesium Sulfate-D5w Pmx 200 1 gm In Dextrose/Water 1 100ml.bag @ 100 mls/hr IVPB Q1H GARIMA Rx#: [id number] NS 600 150 Sodium Chloride 0.9% 1, 400 600 000 ml @ 100 mls/hr IV . Q10H STA Rx#:[id number] Sodium Phosphate 10 mmol 500 In Sodium Chloride 0.9% 250 ml @ 125 mls/hr IVPB Q2H GARIMA Rx#:[id number] Intake, IV Titration 613.946 716.053 98.24 Amount Heparin Sod,Pork in 0.45% 434.596 456.593 NaCl 25,000 unit In 0.45 % NaCl 1 500ml.bag @ 7.47 UNITS/KG/HR 19.99 mls/hr IV .Q24H GARIMA Rx#: [id number] Propofol 1,000 mg In 179.350 259.46 98.24 Empty Bag 1 bag @ Titrate IV .Q0M GARIMA Rx#: [id number] Tube Feeding 108 530 72 Other 30 120 30 Output: Gastric Drainage 200 Urine 343 955 145 Other: Voiding Method Indwelling Catheter Indwelling Catheter Indwelling Catheter - Exam No acute distress, sedated, with a endotracheal tube and NG tube in place. HEENT examination is grossly unremarkable. Mucous membranes are moist. . Neck supple. Full range of motion. No adenopathy thyromegaly or neck vein distention. Cardiovascular examination reveals regular rhythm rate. S1-S2 normal. No S3 or S4. No discernible murmur noted. Heart sounds are distant. Lungs reveal coarse bilateral rhonchi. Breath sounds are diminished. No crackles or wheezes noted. Abdomen soft bowel sounds are heard. No masses or tenderness. Extremities are intact. No cyanosis clubbing or edema. Skin is without rash or lesion. Neurologic examination could not be adequately assessed because the patient currently is sedated. - Labs CBC & Chem 7: 11/27/17 03:42 11/27/17 03:42 Labs: Abnormal Lab Results - Last 24 Hours (Table) 11/26/17 11/26/17 11/26/17 Range/Units 06:16 09:55 10:35 WBC (3.8-10.6) k/uL RDW (11.5-15.5) % Plt Count (150-450) k/uL Neutrophils # (1.3-7.7) k/uL Monocytes # (0-1.0) k/uL APTT (22.0-30.0) sec ABG pO2 (83-108) mmHg ABG HCO3 (21-25) mmol/L ABG Total CO2 (19-24) mmol/L Chloride (98-107) mmol/L BUN (9-20) mg/dL Creatinine (0.66-1.25) mg/dL Glucose (74-99) mg/dL POC Glucose (mg/dL) 209 H (75-99) mg/dL Hemoglobin A1c 6.9 H (4.0-6.0) % Calcium (8.4-10.2) mg/dL Magnesium (1.6-2.3) mg/dL ALT (21-72) U/L Total Protein (6.3-8.2) g/dL Albumin (3.5-5.0) g/dL Urine Opiates Screen Positive H (Negative) ng/mL U Benzodiazepines Scrn Positive H (Negative) ng/mL 11/26/17 11/26/17 11/26/17 Range/Units 12:08 13:43 17:55 WBC (3.8-10.6) k/uL RDW (11.5-15.5) % Plt Count (150-450) k/uL Neutrophils # (1.3-7.7) k/uL Monocytes # (0-1.0) k/uL APTT 43.8 H 59.8 H (22.0-30.0) sec ABG pO2 (83-108) mmHg ABG HCO3 (21-25) mmol/L ABG Total CO2 (19-24) mmol/L Chloride (98-107) mmol/L BUN (9-20) mg/dL Creatinine (0.66-1.25) mg/dL Glucose (74-99) mg/dL POC Glucose (mg/dL) 210 H (75-99) mg/dL Hemoglobin A1c (4.0-6.0) % Calcium (8.4-10.2) mg/dL Magnesium (1.6-2.3) mg/dL ALT (21-72) U/L Total Protein (6.3-8.2) g/dL Albumin (3.5-5.0) g/dL Urine Opiates Screen (Negative) ng/mL U Benzodiazepines Scrn (Negative) ng/mL 11/26/17 11/27/17 11/27/17 Range/Units 20:25 00:31 03:42 WBC 12.9 H (3.8-10.6) k/uL RDW 17.0 H (11.5-15.5) % Plt Count 127 L (150-450) k/uL Neutrophils # 9.5 H (1.3-7.7) k/uL Monocytes # 1.1 H (0-1.0) k/uL APTT (22.0-30.0) sec ABG pO2 (83-108) mmHg ABG HCO3 (21-25) mmol/L ABG Total CO2 (19-24) mmol/L Chloride (98-107) mmol/L BUN (9-20) mg/dL Creatinine (0.66-1.25) mg/dL Glucose (74-99) mg/dL POC Glucose (mg/dL) 142 H 146 H (75-99) mg/dL Hemoglobin A1c (4.0-6.0) % Calcium (8.4-10.2) mg/dL Magnesium (1.6-2.3) mg/dL ALT (21-72) U/L Total Protein (6.3-8.2) g/dL Albumin (3.5-5.0) g/dL Urine Opiates Screen (Negative) ng/mL U Benzodiazepines Scrn (Negative) ng/mL 11/27/17 11/27/17 11/27/17 Range/Units 03:42 03:45 05:29 WBC (3.8-10.6) k/uL RDW (11.5-15.5) % Plt Count (150-450) k/uL Neutrophils # (1.3-7.7) k/uL Monocytes # (0-1.0) k/uL APTT (22.0-30.0) sec ABG pO2 77 L (83-108) mmHg ABG HCO3 30 H (21-25) mmol/L ABG Total CO2 32 H (19-24) mmol/L Chloride 108 H (98-107) mmol/L BUN 49 H (9-20) mg/dL Creatinine 2.53 H (0.66-1.25) mg/dL Glucose 152 H (74-99) mg/dL POC Glucose (mg/dL) 136 H (75-99) mg/dL Hemoglobin A1c (4.0-6.0) % Calcium 8.0 L (8.4-10.2) mg/dL Magnesium 2.4 H (1.6-2.3) mg/dL ALT 20 L (21-72) U/L Total Protein 5.0 L (6.3-8.2) g/dL Albumin 2.6 L (3.5-5.0) g/dL Urine Opiates Screen (Negative) ng/mL U Benzodiazepines Scrn (Negative) ng/mL 11/27/17 11/27/17 Range/Units 06:56 08:15 WBC (3.8-10.6) k/uL RDW (11.5-15.5) % Plt Count (150-450) k/uL Neutrophils # (1.3-7.7) k/uL Monocytes # (0-1.0) k/uL APTT 48.1 H (22.0-30.0) sec ABG pO2 (83-108) mmHg ABG HCO3 (21-25) mmol/L ABG Total CO2 (19-24) mmol/L Chloride (98-107) mmol/L BUN (9-20) mg/dL Creatinine (0.66-1.25) mg/dL Glucose (74-99) mg/dL POC Glucose (mg/dL) 131 H (75-99) mg/dL Hemoglobin A1c (4.0-6.0) % Calcium (8.4-10.2) mg/dL Magnesium (1.6-2.3) mg/dL ALT (21-72) U/L Total Protein (6.3-8.2) g/dL Albumin (3.5-5.0) g/dL Urine Opiates Screen (Negative) ng/mL U Benzodiazepines Scrn (Negative) ng/mL Microbiology - Last 24 Hours (Table) 11/25/17 20:12 Gram Stain - Preliminary Sputum Sputum Culture - Preliminary Assessment and Plan Assessment: Assessment Hypoxemic respiratory failure of unclear etiology Mental status changes, rule out CVA History of myocardial infarction History of pneumonia Acute kidney injury Coronary artery disease Angina pectoris Heart failure COPD Diabetes mellitus Hyperlipidemia Hypertension Myocardial infarction Sleep apnea syndrome Possible aspiration pneumonia Plan: Plan dated 11/26/2017 The patient's PEEP was increased from 5 to 8. I asked respiratory therapist to wean the FiO2 possible. The patient will be started on tube feeds. We'll do a daily eruption of sedation. Neurology was consulted because of possible CVA. We'll DC the ventilation perfusion lung scan. Additional recommendations and suggestions are forthcoming. Prognosis is guarded. We'll make a decision about antibiotics. Labs medications and x-rays are all reviewed. Critical care time 32 minutes Plan dated 11/27/2017 The patient will have a daily eruption of sedation. We'll attempt the patient to be on PSV 8 CPAP of 5. Propofol is being weaned off. The patient is being nourished with vital high protein at goal. The patient remains on IV heparin. X-rays labs and medications are all reviewed. Return of blood gases are adequate. We'll continue to follow closely. Prognosis is guarded. Hopefully he will do well with his spontaneous breathing trial. Critical care time 33 minutes Time with Patient: Greater than 30
[2017-11-27 12:23] LABS: Glucose,Whole Blood 131 mg/dL (75-99)
--- NOTE | 2017-11-27 12:24 | CDI ---
Last Revision, August 2017 Documentation Clarification Form Date: November From: Sharlene Spain RN Admit Date: 11/25/2017 6:49:00 PM Patient Name: Leonardo Hurst Visit Number: [id number] ATTENTION: The Clinical Documentation Specialists (CDI) and [facility] Coding Staff appreciate your assistance in clarifying documentation. Please respond to the clarification below the line at the bottom and electronically sign. The CDI & [facility] Coding staff will review the response and follow-up if needed. Please note: Queries are made part of the Legal Health Record. If you have any questions, please contact the author of this message via ITS. Dr. Tess Regalado , Chronic Kidney disease is charted on 11/26 in consult note, and 11/26 in the H&P History/Risk Factors: cad, chest pain, chf, copd , dm, hyperlipidemia, htn, mi, pneumonia, renal disease, sleep apnea Clinical Indicators: Current BUN/CR/GFR: on admission 33/2. Today BUN/CR/GFR: 49/2./ Treatment: IVF: .9 @ 50 monitor labs In order to capture the severity of condition, please clarify if the condition signifies: CKD Stage 1 (GFR > 90) CKD Stage 2 (GFR 60-89) CKD Stage 3 (GFR 30-59) CKD Stage 4 (GFR 15-29) CKD Stage 5 (GFR <15) Other, please specify Unable to determine Please continue to document in your progress notes, under the line below and / or in the discharge summary in order to capture severity of illness and risk of mortality. Include clinical findings that support your diagnosis. MTDD
--- NOTE | 2017-11-27 12:29 | PN ---
PROGRESS NOTE Leonardo is a 57-year-old gentleman who was admitted to hospital following what appears like a syncope at home. He is extubated, awake, not particularly communicative today. He has known coronary artery disease, ischemic cardiomyopathy, hypertension, dyslipidemia, COPD and sleep apnea. He is undergoing an EEG. The right lower extremity movement is still limited. An echocardiogram on have been shows mild LV systolic dysfunction. Patient had elevated D-dimer and is currently on IV heparin. We are going to get a V/Q scan on him today and if this is low probability, we can stop it. PHYSICAL EXAM: Heart rate is 90 beats per minute, blood pressure is 168/90, respiratory rate is 18. Chest exam reveals diminished air entry at the bases. Heart exam reveals first and second heart sounds. No gallop. Exam of the extremities did not reveal any edema. Peripheral pulses are palpable. ASSESSMENT: 1. Uncontrolled hypertension. 2. Syncope with vent-requiring respiratory failure, probably secondary to aspiration. 3. Rule out pulmonary embolism. PLAN: I will continue the Norvasc, Catapres, Lopressor and increase the dose of hydralazine to 50 t.i.d. for more optimal control of blood pressure. MMODL / IJN: [id number] /
[2017-11-27] MEDS: METOPROLOL TARTRATE 25 MG TAB PO SCH ×2 (13:00→20:31)
[2017-11-27] MEDS: amLODIPine 10 MG TAB PO SCH (13:00)
--- NOTE | 2017-11-27 13:31 | P.PN ---
Subjective Progress Note Date: 11/27/17 Leonardo Hurst is a 57-year-old male who was brought to [facility] ED after having an episode of syncope, patient was evaluated in emergency room and was found to be hypoxemic he was started on high flow oxygen and then on BiPAP without significant improvement he was intubated in the emergency room and started on mechanical ventilation and was admitted to intensive care unit, pulmonary critical care consultation was requested. In the emergency room patient had an elevated d-dimer, and slight elevation in troponin level, he was started on IV heparin, computed tomography scan of the brain did not reveal any acute abnormality. Patient was also found to have elevated CPK level suggestive of rhabdomyolysis, and elevated BUN and creatinine. Currently patient is admitted to intensive care unit he is intubated sedated maintained on mechanical ventilation, his chest x-ray was suggestive of pneumonia he was started on IV antibiotics, he is maintained on IV heparin and IV Solu-Medrol. CT angiogram of the chest was not done due to elevated creatinine, cardiology consultation was requested due to elevated troponin levels, echocardiogram was ordered. Patient was noticed by ICU nurse to be moving all his extremities except the right lower extremity, reviewed there is no history of stroke or any history suggestive of previous weakness or analysis in the right lower extremity, neurology consultation was requested carotid Doppler was ordered and repeat computed tomography scan will be set for tomorrow morning. Patient was very confused on presentation to emergency room, toxicology screen was not done in the emergency room, will order a urine tox screen at this time which will be of limited value due to multiple medication that he has received already. On 11/27/2017 patient was extubated this morning he is alert, responsive in no apparent distress, he states that he fell couple of times at home he was on the floor 1-2 hours before a friend of his came in and called EMS, right lower extremity still has significant weakness, computed tomography scan of the brain done on admission as well as repeat computed tomography scan of the brain done on 11/26/2017 did not reveal any significant abnormality. Echocardiogram was done and revealed ejection fraction of 40-45%, carotid Doppler was done and revealed no significant stenosis. Objective - Vital Signs Vital signs: Vital Signs Temp 98.1 F 11/27/17 12:00 Pulse 80 11/27/17 13:00 Resp 15 11/27/17 13:00 BP 156/91 11/27/17 13:00 Pulse Ox 93 L 11/27/17 13:00 Intake & Output 11/26/17 11/27/17 11/27/17 18:59 06:59 18:59 Intake Total 9604.320 4144.053 550.24 Output Total 543 955 705 Balance 6951.084 0668.053 -154.76 Weight 137.3 kg 137.8 kg Intake: IV 1200 1450 350 Azithromycin 500 mg In 100 250 Sodium Chloride 0.9% 250 ml @ 125 mls/hr IVPB ONCE STA Rx#:[id number] Magnesium Sulfate-D5w Pmx 200 1 gm In Dextrose/Water 1 100ml.bag @ 100 mls/hr IVPB Q1H GARIMA Rx#: [id number] NS 600 350 Sodium Chloride 0.9% 1, 400 600 000 ml @ 100 mls/hr IV . Q10H STA Rx#:[id number] Sodium Phosphate 10 mmol 500 In Sodium Chloride 0.9% 250 ml @ 125 mls/hr IVPB Q2H GARIMA Rx#:[id number] Intake, IV Titration 613.946 716.053 98.24 Amount Heparin Sod,Pork in 0.45% 434.596 456.593 NaCl 25,000 unit In 0.45 % NaCl 1 500ml.bag @ 7.47 UNITS/KG/HR 19.99 mls/hr IV .Q24H GARIMA Rx#: [id number] Propofol 1,000 mg In 179.350 259.46 98.24 Empty Bag 1 bag @ Titrate IV .Q0M GARIMA Rx#: [id number] Tube Feeding 108 530 72 Other 30 120 30 Output: Gastric Drainage 200 Urine 343 955 705 Other: Voiding Method Indwelling Catheter Indwelling Catheter Indwelling Catheter - Exam Patient is alert and responsive in no apparent distress HEENT head normocephalic and atraumatic Case supple no JVD no goiter no lymphadenopathy Chest exam reveals a few scattered crackles no wheezing Cardiac exam reveals regular heart sounds no gallops no murmurs Abdomen is soft nontender no organomegaly with normal bowel sounds Extremity exam reveals no edema no cyanosis or clubbing - Labs CBC & Chem 7: 11/27/17 03:42 11/27/17 03:42 Labs: Abnormal Lab Results - Last 24 Hours (Table) 11/26/17 11/26/17 11/26/17 Range/Units 06:16 10:35 13:43 WBC (3.8-10.6) k/uL RDW (11.5-15.5) % Plt Count (150-450) k/uL Neutrophils # (1.3-7.7) k/uL Monocytes # (0-1.0) k/uL APTT 43.8 H (22.0-30.0) sec ABG pO2 (83-108) mmHg ABG HCO3 (21-25) mmol/L ABG Total CO2 (19-24) mmol/L Chloride (98-107) mmol/L BUN (9-20) mg/dL Creatinine (0.66-1.25) mg/dL Glucose (74-99) mg/dL POC Glucose (mg/dL) (75-99) mg/dL Hemoglobin A1c 6.9 H (4.0-6.0) % Calcium (8.4-10.2) mg/dL Magnesium (1.6-2.3) mg/dL ALT (21-72) U/L Total Protein (6.3-8.2) g/dL Albumin (3.5-5.0) g/dL Urine Opiates Screen Positive H (Negative) ng/mL U Benzodiazepines Scrn Positive H (Negative) ng/mL 11/26/17 11/26/17 11/27/17 Range/Units 17:55 20:25 00:31 WBC (3.8-10.6) k/uL RDW (11.5-15.5) % Plt Count (150-450) k/uL Neutrophils # (1.3-7.7) k/uL Monocytes # (0-1.0) k/uL APTT 59.8 H (22.0-30.0) sec ABG pO2 (83-108) mmHg ABG HCO3 (21-25) mmol/L ABG Total CO2 (19-24) mmol/L Chloride (98-107) mmol/L BUN (9-20) mg/dL Creatinine (0.66-1.25) mg/dL Glucose (74-99) mg/dL POC Glucose (mg/dL) 142 H 146 H (75-99) mg/dL Hemoglobin A1c (4.0-6.0) % Calcium (8.4-10.2) mg/dL Magnesium (1.6-2.3) mg/dL ALT (21-72) U/L Total Protein (6.3-8.2) g/dL Albumin (3.5-5.0) g/dL Urine Opiates Screen (Negative) ng/mL U Benzodiazepines Scrn (Negative) ng/mL 11/27/17 11/27/17 11/27/17 Range/Units 03:42 03:42 03:45 WBC 12.9 H (3.8-10.6) k/uL RDW 17.0 H (11.5-15.5) % Plt Count 127 L (150-450) k/uL Neutrophils # 9.5 H (1.3-7.7) k/uL Monocytes # 1.1 H (0-1.0) k/uL APTT (22.0-30.0) sec ABG pO2 (83-108) mmHg ABG HCO3 (21-25) mmol/L ABG Total CO2 (19-24) mmol/L Chloride 108 H (98-107) mmol/L BUN 49 H (9-20) mg/dL Creatinine 2.53 H (0.66-1.25) mg/dL Glucose 152 H (74-99) mg/dL POC Glucose (mg/dL) 136 H (75-99) mg/dL Hemoglobin A1c (4.0-6.0) % Calcium 8.0 L (8.4-10.2) mg/dL Magnesium 2.4 H (1.6-2.3) mg/dL ALT 20 L (21-72) U/L Total Protein 5.0 L (6.3-8.2) g/dL Albumin 2.6 L (3.5-5.0) g/dL Urine Opiates Screen (Negative) ng/mL U Benzodiazepines Scrn (Negative) ng/mL 11/27/17 11/27/17 11/27/17 Range/Units 05:29 06:56 08:15 WBC (3.8-10.6) k/uL RDW (11.5-15.5) % Plt Count (150-450) k/uL Neutrophils # (1.3-7.7) k/uL Monocytes # (0-1.0) k/uL APTT 48.1 H (22.0-30.0) sec ABG pO2 77 L (83-108) mmHg ABG HCO3 30 H (21-25) mmol/L ABG Total CO2 32 H (19-24) mmol/L Chloride (98-107) mmol/L BUN (9-20) mg/dL Creatinine (0.66-1.25) mg/dL Glucose (74-99) mg/dL POC Glucose (mg/dL) 131 H (75-99) mg/dL Hemoglobin A1c (4.0-6.0) % Calcium (8.4-10.2) mg/dL Magnesium (1.6-2.3) mg/dL ALT (21-72) U/L Total Protein (6.3-8.2) g/dL Albumin (3.5-5.0) g/dL Urine Opiates Screen (Negative) ng/mL U Benzodiazepines Scrn (Negative) ng/mL 11/27/17 Range/Units 12:21 WBC (3.8-10.6) k/uL RDW (11.5-15.5) % Plt Count (150-450) k/uL Neutrophils # (1.3-7.7) k/uL Monocytes # (0-1.0) k/uL APTT (22.0-30.0) sec ABG pO2 (83-108) mmHg ABG HCO3 (21-25) mmol/L ABG Total CO2 (19-24) mmol/L Chloride (98-107) mmol/L BUN (9-20) mg/dL Creatinine (0.66-1.25) mg/dL Glucose (74-99) mg/dL POC Glucose (mg/dL) 131 H (75-99) mg/dL Hemoglobin A1c (4.0-6.0) % Calcium (8.4-10.2) mg/dL Magnesium (1.6-2.3) mg/dL ALT (21-72) U/L Total Protein (6.3-8.2) g/dL Albumin (3.5-5.0) g/dL Urine Opiates Screen (Negative) ng/mL U Benzodiazepines Scrn (Negative) ng/mL Microbiology - Last 24 Hours (Table) 11/25/17 20:12 Gram Stain - Final Sputum Sputum Culture - Final Assessment and Plan Plan: #1 episode of syncope #2 acute hypoxic respiratory failure, requiring intubation and mechanical ventilation, now patient has been extubated this morning and is tolerating well #3 retrocardiac infiltrate on chest x-ray suggestive of pneumonia started on IV antibiotics #4 elevated d-dimer, patient was started on IV heparin, awaiting further testing #5 slight elevation in troponin level cardiology consult is requested patient is maintained on IV heparin #6 rhabdomyolysis maintained on IV fluid Will monitor kidney function #7 acute renal failure continue with IV fluid monitor kidney function #8 COPD exacerbation maintained on IV Solu-Medrol and inhaled bronchodilators #9 underlying history of diabetes mellitus maintained on insulin sliding scale #10 underlying history of cardiomyopathy, patient has history of AICD placement #11 underlying history of coronary artery disease with myocardial infarction in the past with history of cardiac catheterization and stent placement #12 underlying history of sleep apnea #13 underlying history of hypertension #14 underlying history of hyperlipidemia #15 lack of movement in the right lower extremity spontaneously and in response to stimuli, neurology consultation was requested, echocardiogram reveals evidence of depressed ejection fraction to 40-45% carotid Doppler did not reveal any significant stenosis Today patient was seen and examined, medication and labs were reviewed Input from pulmonary critical care and emergency room physician were reviewed Consultation for cardiology and neurology were initiated Will follow closely
[2017-11-27] MEDS: hydrALAZINE HCL 50 MG TAB PO SCH ×3 (14:46→22:06)
--- NOTE | 2017-11-27 15:00 | P.PN ---
Subjective Progress Note Date: 11/27/17 Principal diagnosis: Right lower extremity weakness This 57-year-old male continuing to be evaluated by the neurology office for right lower extremity weakness. He is in the ICU and was previously sedated and intubated. It was noticed during sedation holiday that he had decreased movement of his right lower extremity. His initial CT in the emergency room showed no acute intracranial abnormalities. A repeat CT was done, and was unchanged. He is no longer sedated and intubated. At the time my exam he is sitting up in his ICU bed and is alert and oriented. I did get further history from him and his right lower extremity finding is not new. He is not quite sure the diagnosis, but says he was told that his right leg symptoms are from his lower back. He says he has consult with Dr. Oneal in the past about this but has not had lumbar surgery. He has seen someone more recently for these problems but at this time cannot recall the name of his doctor. Objective - Vital Signs Vital signs: Vital Signs Temp 98.1 F 11/27/17 12:00 Pulse 76 11/27/17 14:00 Resp 20 11/27/17 14:00 BP 153/97 11/27/17 14:00 Pulse Ox 94 L 11/27/17 14:00 Intake & Output 11/26/17 11/27/17 11/27/17 18:59 06:59 18:59 Intake Total 0158.671 1585.053 600.24 Output Total 543 955 765 Balance 1119.956 5979.053 -164.76 Weight 137.3 kg 137.8 kg Intake: IV 1200 1450 400 Azithromycin 500 mg In 100 250 Sodium Chloride 0.9% 250 ml @ 125 mls/hr IVPB ONCE STA Rx#:[id number] Magnesium Sulfate-D5w Pmx 200 1 gm In Dextrose/Water 1 100ml.bag @ 100 mls/hr IVPB Q1H GARIMA Rx#: [id number] NS 600 400 Sodium Chloride 0.9% 1, 400 600 000 ml @ 100 mls/hr IV . Q10H STA Rx#:[id number] Sodium Phosphate 10 mmol 500 In Sodium Chloride 0.9% 250 ml @ 125 mls/hr IVPB Q2H GARIMA Rx#:[id number] Intake, IV Titration 613.946 716.053 98.24 Amount Heparin Sod,Pork in 0.45% 434.596 456.593 NaCl 25,000 unit In 0.45 % NaCl 1 500ml.bag @ 7.47 UNITS/KG/HR 19.99 mls/hr IV .Q24H GARIMA Rx#: [id number] Propofol 1,000 mg In 179.350 259.46 98.24 Empty Bag 1 bag @ Titrate IV .Q0M GARIMA Rx#: [id number] Tube Feeding 108 530 72 Other 30 120 30 Output: Gastric Drainage 200 Urine 343 955 765 Other: Voiding Method Indwelling Catheter Indwelling Catheter Indwelling Catheter - Constitutional General appearance: Present: cooperative, no acute distress - EENT Eyes: Present: EOMI, PERRLA. Absent: abnormal pupil, ptosis ENT: Present: hearing grossly normal - Neck Neck: Present: normal ROM. Absent: rigidity - Respiratory Respiratory: negative: prolonged expiration, prolonged inspiration - Cardiovascular Rhythm: regular - Gastrointestinal General gastrointestinal: Absent: distended, tenderness - Neurologic Neurologic Comment(s): Patient is drowsy but he is awake and oriented to person place and partially to time. Speech and language are normal. There is no facial asymmetry. There is a little generalized weakness but overall strength in bilateral upper and left lower extremity is good. He does have some significant weakness with dorsiflexion of the right foot, and overall strength in the right lower extremity is 4+. There is no significant sensory deficit. No tremors or seizure-like activities are seen. - Labs CBC & Chem 7: 11/27/17 03:42 11/27/17 03:42 Labs: Abnormal Lab Results - Last 24 Hours (Table) 11/26/17 11/26/17 11/26/17 Range/Units 06:16 10:35 17:55 WBC (3.8-10.6) k/uL RDW (11.5-15.5) % Plt Count (150-450) k/uL Neutrophils # (1.3-7.7) k/uL Monocytes # (0-1.0) k/uL APTT 59.8 H (22.0-30.0) sec ABG pO2 (83-108) mmHg ABG HCO3 (21-25) mmol/L ABG Total CO2 (19-24) mmol/L Chloride (98-107) mmol/L BUN (9-20) mg/dL Creatinine (0.66-1.25) mg/dL Glucose (74-99) mg/dL POC Glucose (mg/dL) (75-99) mg/dL Hemoglobin A1c 6.9 H (4.0-6.0) % Calcium (8.4-10.2) mg/dL Magnesium (1.6-2.3) mg/dL ALT (21-72) U/L Total Protein (6.3-8.2) g/dL Albumin (3.5-5.0) g/dL Homocysteine (4.00-14.00) umol/L Urine Opiates Screen Positive H (Negative) ng/mL U Benzodiazepines Scrn Positive H (Negative) ng/mL 11/26/17 11/27/17 11/27/17 Range/Units 20:25 00:31 03:42 WBC (3.8-10.6) k/uL RDW (11.5-15.5) % Plt Count (150-450) k/uL Neutrophils # (1.3-7.7) k/uL Monocytes # (0-1.0) k/uL APTT (22.0-30.0) sec ABG pO2 (83-108) mmHg ABG HCO3 (21-25) mmol/L ABG Total CO2 (19-24) mmol/L Chloride (98-107) mmol/L BUN (9-20) mg/dL Creatinine (0.66-1.25) mg/dL Glucose (74-99) mg/dL POC Glucose (mg/dL) 142 H 146 H (75-99) mg/dL Hemoglobin A1c (4.0-6.0) % Calcium (8.4-10.2) mg/dL Magnesium (1.6-2.3) mg/dL ALT (21-72) U/L Total Protein (6.3-8.2) g/dL Albumin (3.5-5.0) g/dL Homocysteine 24.07 H (4.00-14.00) umol/L Urine Opiates Screen (Negative) ng/mL U Benzodiazepines Scrn (Negative) ng/mL 11/27/17 11/27/17 11/27/17 Range/Units 03:42 03:42 03:45 WBC 12.9 H (3.8-10.6) k/uL RDW 17.0 H (11.5-15.5) % Plt Count 127 L (150-450) k/uL Neutrophils # 9.5 H (1.3-7.7) k/uL Monocytes # 1.1 H (0-1.0) k/uL APTT (22.0-30.0) sec ABG pO2 (83-108) mmHg ABG HCO3 (21-25) mmol/L ABG Total CO2 (19-24) mmol/L Chloride 108 H (98-107) mmol/L BUN 49 H (9-20) mg/dL Creatinine 2.53 H (0.66-1.25) mg/dL Glucose 152 H (74-99) mg/dL POC Glucose (mg/dL) 136 H (75-99) mg/dL Hemoglobin A1c (4.0-6.0) % Calcium 8.0 L (8.4-10.2) mg/dL Magnesium 2.4 H (1.6-2.3) mg/dL ALT 20 L (21-72) U/L Total Protein 5.0 L (6.3-8.2) g/dL Albumin 2.6 L (3.5-5.0) g/dL Homocysteine (4.00-14.00) umol/L Urine Opiates Screen (Negative) ng/mL U Benzodiazepines Scrn (Negative) ng/mL 11/27/17 11/27/17 11/27/17 Range/Units 05:29 06:56 08:15 WBC (3.8-10.6) k/uL RDW (11.5-15.5) % Plt Count (150-450) k/uL Neutrophils # (1.3-7.7) k/uL Monocytes # (0-1.0) k/uL APTT 48.1 H (22.0-30.0) sec ABG pO2 77 L (83-108) mmHg ABG HCO3 30 H (21-25) mmol/L ABG Total CO2 32 H (19-24) mmol/L Chloride (98-107) mmol/L BUN (9-20) mg/dL Creatinine (0.66-1.25) mg/dL Glucose (74-99) mg/dL POC Glucose (mg/dL) 131 H (75-99) mg/dL Hemoglobin A1c (4.0-6.0) % Calcium (8.4-10.2) mg/dL Magnesium (1.6-2.3) mg/dL ALT (21-72) U/L Total Protein (6.3-8.2) g/dL Albumin (3.5-5.0) g/dL Homocysteine (4.00-14.00) umol/L Urine Opiates Screen (Negative) ng/mL U Benzodiazepines Scrn (Negative) ng/mL 11/27/17 Range/Units 12:21 WBC (3.8-10.6) k/uL RDW (11.5-15.5) % Plt Count (150-450) k/uL Neutrophils # (1.3-7.7) k/uL Monocytes # (0-1.0) k/uL APTT (22.0-30.0) sec ABG pO2 (83-108) mmHg ABG HCO3 (21-25) mmol/L ABG Total CO2 (19-24) mmol/L Chloride (98-107) mmol/L BUN (9-20) mg/dL Creatinine (0.66-1.25) mg/dL Glucose (74-99) mg/dL POC Glucose (mg/dL) 131 H (75-99) mg/dL Hemoglobin A1c (4.0-6.0) % Calcium (8.4-10.2) mg/dL Magnesium (1.6-2.3) mg/dL ALT (21-72) U/L Total Protein (6.3-8.2) g/dL Albumin (3.5-5.0) g/dL Homocysteine (4.00-14.00) umol/L Urine Opiates Screen (Negative) ng/mL U Benzodiazepines Scrn (Negative) ng/mL Microbiology - Last 24 Hours (Table) 11/25/17 20:12 Gram Stain - Final Sputum Sputum Culture - Final Assessment and Plan (1) Right leg weakness Current Visit: Yes Status: Chronic Code(s): R29.898 - [facility] SYMPTOMS AND SIGNS INVOLVING THE MUSCULOSKELETAL SYSTEM SNOMED Code(s): 361251998 (2) Chronic low back pain Current Visit: Yes Status: Chronic Code(s): M54.5 - LOW BACK PAIN; G89.29 - OTHER CHRONIC PAIN SNOMED Code(s): 789578800 (3) Respiratory failure Current Visit: Yes Status: Resolved Code(s): J96.90 - RESPIRATORY FAILURE, UNSP, UNSP W HYPOXIA OR HYPERCAPNIA SNOMED Code(s): 881009890 (4) CAD (coronary artery disease) Current Visit: No Status: Chronic Code(s): I25.10 - ATHSCL HEART DISEASE OF [place] CORONARY ARTERY W/O ANG PCTRS SNOMED Code(s): 46906834 (5) CHF (congestive heart failure) Current Visit: No Status: Chronic Code(s): I50.9 - HEART FAILURE, UNSPECIFIED SNOMED Code(s): 77976732 (6) Diabetes Current Visit: No Status: Chronic Code(s): E11.9 - TYPE 2 DIABETES MELLITUS WITHOUT COMPLICATIONS SNOMED Code(s): 20302207 Plan: His right lower extremity that was felt to be a new finding, is indeed an old finding. A repeat CT of the brain was done because of this finding and showed no acute intracranial abnormalities. It was unchanged from his initial CT. As the patient implies this is likely generated by his chronic low back pain and may represent some significant radiculopathy or neuropathy. Recommend electrophysiologic testing in an outpatient setting, as well as updated MRI of the lumbar spine in an outpatient setting. He indicates he has a provider for this already. If not we could see him in an outpatient setting. The vaz he is cleared from a neurological standpoint. I have performed a history and physical on the above patient. I have reviewed the above note, and agree.
--- NOTE | 2017-11-27 15:53 | US ---
EXAMINATION TYPE: US venous doppler duplex LE BI DATE OF EXAM: 11/27/2017 3:27 PM COMPARISON: NONE CLINICAL HISTORY: elevated d-dimer, hypoxia, R/O DVT. Elevated D-dimer, bilateral leg swelling SIDE PERFORMED: Bilateral TECHNIQUE: The lower extremity deep venous system is examined utilizing real time linear array sonog mynor with graded compression, doppler sonography and color-flow sonography. VESSELS IMAGED: External Iliac Vein (EIV) Common Femoral Vein Deep Femoral Vein Greater Saphenous Vein * Femoral Vein Popliteal Vein Small Saphenous Vein * Proximal Calf Veins (* superficial vessels) Grayscale, color doppler, spectral doppler imaging performed of the deep veins of the lower extremiti es. There is normal flow, compressibility, vascular waveforms. Right Leg: Negative for DVT Left Leg: Negative for DVT IMPRESSION: No sonographic evidence of deep venous thrombosis within either lower extremity.
[2017-11-27 16:31] LABS: Glucose,Whole Blood 139 mg/dL (75-99)
[2017-11-27] MEDS ORDERED: FUROSEMIDE 10 MG/ML 4 ML VIAL IV STA (17:15)
--- NOTE | 2017-11-27 19:02 | EEG ---
ELECTROENCEPHALOGRAM REPORT DATE OF SERVICE: 11/27/2017. REASON FOR TESTING: Stroke. DESCRIPTION OF THE PROCEDURE: This EEG was performed using a 21-channel digital electroencephalograph, following international 10-20 system. DESCRIPTION OF THE RECORDING: From the beginning of the tracing and with patient's eyes closed, the background rhythm was mostly consisting of 7 Hz theta frequency in the posterior occipital lead. No obvious asymmetry is seen. Photic stimulation was performed with a minimal driving response seen. No pathological waves were elicited. Frequent movement and muscle artifacts are seen. Hyperventilation was not performed. The patient remains awake throughout the tracing. No epileptiform discharges were seen. His EKG lead showed a regular rate and rhythm. INTERPRETATION: This awake EEG can be considered within normal limits. There was no asymmetry seen. No epileptiform discharges were noticed. The absence of epileptiform discharges does not rule out the diagnosis of epilepsy; therefore, clinical correlation is recommended. MMLOREL / LINDAN: [id number] /
--- NOTE | 2017-11-27 19:11 | PN ---
PROGRESS NOTE Patient is seen for followup for acute kidney injury. His urine output has picked up last night after Lasix. Currently patient's urine output is anywhere from 100 to 60 mL/hour. He remains on the vent. Blood pressure this morning is 138/85, heart rate 82 per minute. Patient is afebrile. EXAMINATION OF THE HEART: S1, S2. EXAMINATION OF LUNGS: Bilateral breath sounds are heard. ABDOMEN: Soft, obese, distended. Examination of lower extremities shows edema 1+ bilaterally. POKER IN exam cannot be performed. Labs reveal sodium 145, potassium 3.9, chloride 108, BUN 49, serum creatinine 2.53, hemoglobin 14.7 g/dL. ASSESSMENT: 1. Acute kidney injury, acute tubular necrosis, initially oliguric, currently nonoliguric. Etiology was ischemic acute tubular necrosis with improved urine output currently. 2. Vent-dependent respiratory failure with possibility of underlying pulmonary embolism and currently maintained on IV heparin. 3. Cardiomyopathy; ejection fraction 40% to 45%. 4. Status post syncope. 5. Acute hypoxic respiratory failure, currently on the vent. 6. Possible pneumonia. Retrocardiac infiltrate on chest x-ray, maintained on IV antibiotics. 7. Mild rhabdomyolysis. 8. Chronic kidney disease with previous creatinine of 1.6 mg/dL in June of 2017. Etiology is likely diabetic nephropathy, NKF stage III. PLAN: Decrease IV fluids and continue to avoid nephrotoxic agents. Repeat labs in a.m. MMLOREL / LINDAN: [id number] /
--- NOTE | 2017-11-27 19:29 | NM ---
EXAMINATION TYPE: NM pul vent and perfuse DATE OF EXAM: 11/27/2017 COMPARISON: 11/27/2017 chest radiograph and lower extremity Doppler ultrasound HISTORY: Ventilatory dependent respiratory failure. No deep venous thrombosis seen. TECHNIQUE: Utilizing inhalation of 69.6 mCi Tc 99m DTPA aerosol and intravenous injection of 5.5 mCi of Tc 99m MAA, ventilation and perfusion images are acquired post injection in multiple projections. FINDINGS: Focal accumulation of radiotracer is seen within the left hilar region with diffuse decreased ventila tion within the left lung. No perfusion defect is seen within the right or left lung on them defects from the enlarged cardiac silhouette. IMPRESSION: Low probability for pulmonary embolus. Focal radiotracer clumping/accumulation within the left hilum with decreased ventilation to the entirety of the left lung and no perfusion abnormality. Finding bhakta ses suspicion for endobronchial obstruction and could relate to mass or mucus plugging.
[2017-11-27] MEDS: cefTRIAXone IN SWFI 1,000 MG/10 ML SYRINGE IVP SCH (19:54)
[2017-11-27 20:05] LABS: Glucose,Whole Blood 113 mg/dL (75-99)
[2017-11-27] MEDS: AZITHROMYCIN 500 MG in SODIUM CHLORIDE 0.9% 250 ML IVPB SCH (20:29)
[2017-11-27] MEDS: QUEtiapine 200 MG TAB PO SCH (20:31)
[2017-11-27] MEDS: PRAVASTATIN SODIUM 40 MG TAB PO SCH (20:31)
[2017-11-27] MEDS: traZODone HCL 100 MG TAB PO SCH (20:31)
--- NOTE | 2017-11-27 21:21 | XR ---
EXAMINATION TYPE: XR ankle complete RT DATE OF EXAM: 11/27/2017 CLINICAL HISTORY: Right ankle pain and swelling after a fall TECHNIQUE: Frontal, lateral and oblique images of the right ankle are obtained. COMPARISON: None. FINDINGS: There is no acute fracture/dislocation evident in the right ankle. The ankle mortise appe ars within normal limits. Soft tissue swelling is seen overlying the hindfoot most pronounced over th e medial talus and lateral malleolus extending into the midfoot. IMPRESSION: Soft tissue swelling of the hindfoot and midfoot most pronounced of the medial talus and lateral malleolus with no acute fracture or dislocation in the right ankle. If there is persistent pa in MRI could be performed to evaluate for ligamentous and tendinous injury given the soft tissue swel ling.
[2017-11-27 23:41] LABS: Glucose,Whole Blood 101 mg/dL (75-99)
[2017-11-28] MEDS: IPRATROPIUM-ALBUTEROL 3 ML NEB INHALATION SCH ×5 (00:32→19:39)
[2017-11-28 04:05] LABS: Glucose,Whole Blood 101 mg/dL (75-99)
[2017-11-28] MEDS: INSULIN ASPART 100 UNIT/ML 1 ML 10 ML VIAL SQ SCH ×6 (04:50→23:44)
[2017-11-28] MEDS: SODIUM CHLORIDE 0.9% 1,000 ML IV SCH (04:51)
[2017-11-28 05:06] LABS: Calcium 8.4 mg/dL (8.4-10.2); Magnesium 2.1 mg/dL (1.6-2.3); Phosphorus 4.1 mg/dL (2.5-4.5); Potassium 3.8 mmol/L (3.5-5.1)
[2017-11-28 05:27] LABS: Anisocytosis Slight; Basophils # (A) 0.1 k/uL (0-0.2); Basophils % (A) 1 %; Eosinophils # (A) 0.1 k/uL (0-0.7); Eosinophils % (A) 1 %; HCT 46.6 % (39.0-53.0); HGB 14.8 gm/dL (13.0-17.5); Hypochromasia Slight; Lymphocytes # (A) 2.1 k/uL (1.0-4.8); Lymphocytes % (A) 22 %; MCH 29.1 pg (25.0-35.0); MCHC 31.7 g/dL (31.0-37.0); MCV 91.8 fL (80.0-100.0); Mean Platelet Volume 9.6; Monocytes # (A) 0.9 k/uL (0-1.0); Monocytes % (A) 9 %; Neutrophils # (A) 5.9 k/uL (1.3-7.7); Neutrophils % (A) 63 %; Platelet Count 115 k/uL (150-450); RBC 5.08 m/uL (4.30-5.90); RDW 16.9 % (11.5-15.5); WBC 9.3 k/uL (3.8-10.6)
[2017-11-28 07:36] LABS: Glucose,Whole Blood 103 mg/dL (75-99)
--- NOTE | 2017-11-28 08:23 | XR ---
EXAMINATION TYPE: XR chest 1V portable DATE OF EXAM: 11/28/2017 COMPARISON: 11/27/2017 HISTORY: Shortness of breath. TECHNIQUE: Single frontal view of the chest is obtained. FINDINGS: There is a persistent retrocardiac opacity and blunting of the left costophrenic angle. Ne w right basilar opacity is seen along the right hemidiaphragm. Linear platelike subsegmental left mid lung atelectasis is also noted. Remainder the lungs are clear. Cardiomediastinal silhouette is enlarg ed with dual lead left-sided cardiac device. Osseous structures are grossly intact. IMPRESSION: 1. Interval extubation and removal of the enteric tube. 2. New right basilar opacity and persistent retrocardiac opacity favored to represent atelectasis and a trace pleural effusion.
[2017-11-28] MEDS: PANTOPRAZOLE 40 MG/10 ML VIAL IV SCH (08:26)
[2017-11-28] MEDS: ESCITALOPRAM 10 MG TAB PO SCH (08:26)
[2017-11-28] MEDS: cloNIDine HCL 0.2 MG TAB PO SCH ×3 (08:26→21:01)
[2017-11-28] MEDS: GABAPENTIN 300 MG CAP PO SCH (08:26)
[2017-11-28] MEDS: ASPIRIN 325 MG TAB PO SCH (08:27)
[2017-11-28] MEDS: hydrALAZINE HCL 50 MG TAB PO SCH ×3 (08:27→21:01)
[2017-11-28] MEDS: BUMETANIDE 1 MG TAB PO SCH ×2 (08:27→20:27)
[2017-11-28] MEDS: ALLOPURINOL 100 MG TAB PO SCH (08:27)
[2017-11-28] MEDS: amLODIPine 10 MG TAB PO SCH (08:28)
[2017-11-28] MEDS: PREGABALIN 75 MG CAP PO SCH ×2 (08:33→20:27)
[2017-11-28] MEDS ORDERED: ENOXAPARIN 30 MG/0.3 ML SYRINGE SQ SCH (09:00)
--- NOTE | 2017-11-28 09:19 | P.PN ---
Subjective Progress Note Date: 11/28/17 Principal diagnosis: Respiratory failure Progress note dated 11/27/2017 This a 57-year-old black male with a history of hypoxemic respiratory failure status changes my cardial infarction pneumonia acute kidney injury CAD angina pectoris heart failure COPD diabetes hyperlipidemia hypertension myocardial infarction sleep apnea syndrome. The patient currently is on the ventilator. The patient is on the assist control mode with a rate of 22 tidal volume 500 FiO2 of 60% and PEEP of 8. Arterial blood gases show a PaO2 of 77 a pCO2 45 and a pH of 7.49. The patient has a saline IV at 100 mL an hour propofol at 20 mics per kilogram per minute heparin via weightbase protocol and vital high protein at a rate of 36 with a goal of 36 mL/h. We will attempt a daily eruption of sedation a spontaneous breathing trial in the pre-PSV of a CPAP of 5. The patient may not be ready for weaning as yet. The patient's chest x-ray shows a minimal infiltrate/atelectasis at the left lung base. May relate to aspiration. Progress note dated 11/28/2017 57-year-old black male with history of hypoxemic respiratory failure, status post myocardial infarction pneumonia acute kidney injury CAD angina pectoris heart failure COPD diabetes hyperlipidemia hypertension myocardial infarction sleep apnea syndrome. The patient is not really sure what happened to him. He states he was lightheaded and dizzy. He fell to the floor. Apparently did not loose consciousness. We are thinking that maybe had a pulmonary embolism. Dopplers of lower extremities were negative. VQ scan was low probability. He also was complaining of pain in the right foot and ankle but x-rays were negative. I thought it might be gout in that joint but his uric acid was 8.1. He was extubated yesterday on November 27. He is on O2 at 4 L. At nighttime because of sleep apnea syndrome, he is on BiPAP at 10 and 5 and 40%. His only on a saline IV at 50 mL an hour. Objective - Vital Signs Vital signs: Vital Signs Temp 97.5 F L 11/28/17 04:00 Pulse 60 11/28/17 07:53 Resp 12 11/28/17 07:00 BP 144/96 11/28/17 07:00 Pulse Ox 96 11/28/17 07:00 Intake & Output 11/27/17 11/28/17 11/28/17 18:59 06:59 18:59 Intake Total 800.24 1150 50 Output Total 2190 4240 45 Balance -1389.76 -3090 5 Weight 137.8 kg Intake: IV 600 650 50 NS 600 650 50 Intake, IV Titration 98.24 250 Amount Azithromycin 500 mg In 250 Sodium Chloride 0.9% 250 ml @ 125 mls/hr IVPB HS [facility] Rx#:[id number] Propofol 1,000 mg In 98.24 Empty Bag 1 bag @ Titrate IV .Q0M G[facility] Rx#: [id number] Oral 250 Tube Feeding 72 Other 30 Output: Urine 2190 4240 45 Other: Voiding Method Indwelling Catheter Indwelling Catheter Indwelling Catheter - Exam No acute distress. The patient is awake and alert. He is oriented 3. Is not sure what happened to him prior to admission HEENT examination is grossly unremarkable. Mucous membranes are moist. . Neck supple. Full range of motion. No adenopathy thyromegaly or neck vein distention. Cardiovascular examination reveals regular rhythm rate. S1-S2 normal. No S3 or S4. No discernible murmur noted. Heart sounds are distant. Lungs reveal relatively clear breath sounds. A few scattered rhonchi. No wheezes or crackles. Abdomen soft bowel sounds are heard. No masses or tenderness. Extremities are intact. No cyanosis clubbing or edema. Skin is without rash or lesion. Neurologic examination is brief but nonfocal. - Labs CBC & Chem 7: 11/28/17 04:12 11/28/17 04:12 Labs: Abnormal Lab Results - Last 24 Hours (Table) 11/27/17 11/27/17 11/27/17 Range/Units 03:42 12:21 16:27 RDW (11.5-15.5) % Plt Count (150-450) k/uL APTT (22.0-30.0) sec Sodium (137-145) mmol/L Carbon Dioxide (22-30) mmol/L BUN (9-20) mg/dL Creatinine (0.66-1.25) mg/dL Glucose (74-99) mg/dL POC Glucose (mg/dL) 131 H 139 H (75-99) mg/dL Homocysteine 24.07 H (4.00-14.00) umol/L 11/27/17 11/27/17 11/28/17 Range/Units 20:03 23:40 04:03 RDW (11.5-15.5) % Plt Count (150-450) k/uL APTT (22.0-30.0) sec Sodium (137-145) mmol/L Carbon Dioxide (22-30) mmol/L BUN (9-20) mg/dL Creatinine (0.66-1.25) mg/dL Glucose (74-99) mg/dL POC Glucose (mg/dL) 113 H 101 H 101 H (75-99) mg/dL Homocysteine (4.00-14.00) umol/L 11/28/17 11/28/17 11/28/17 Range/Units 04:12 04:12 04:12 RDW 16.9 H (11.5-15.5) % Plt Count 115 L (150-450) k/uL APTT 20.5 L (22.0-30.0) sec Sodium 146 H (137-145) mmol/L Carbon Dioxide 34 H (22-30) mmol/L BUN 38 H (9-20) mg/dL Creatinine 1.60 H (0.66-1.25) mg/dL Glucose 108 H (74-99) mg/dL POC Glucose (mg/dL) (75-99) mg/dL Homocysteine (4.00-14.00) umol/L 11/28/17 Range/Units 07:34 RDW (11.5-15.5) % Plt Count (150-450) k/uL APTT (22.0-30.0) sec Sodium (137-145) mmol/L Carbon Dioxide (22-30) mmol/L BUN (9-20) mg/dL Creatinine (0.66-1.25) mg/dL Glucose (74-99) mg/dL POC Glucose (mg/dL) 103 H (75-99) mg/dL Homocysteine (4.00-14.00) umol/L Microbiology - Last 24 Hours (Table) 11/25/17 20:12 Gram Stain - Final Sputum Sputum Culture - Final Assessment and Plan Assessment: Assessment Hypoxemic respiratory failure of unclear etiology Mental status changes, rule out CVA History of myocardial infarction History of pneumonia Acute kidney injury Coronary artery disease Angina pectoris Heart failure COPD Diabetes mellitus Hyperlipidemia Hypertension Myocardial infarction Sleep apnea syndrome Possible aspiration pneumonia No evidence of DVT or pulmonary embolism Plan: Plan dated 11/26/2017 The patient's PEEP was increased from 5 to 8. I asked respiratory therapist to wean the FiO2 possible. The patient will be started on tube feeds. We'll do a daily eruption of sedation. Neurology was consulted because of possible CVA. We'll DC the ventilation perfusion lung scan. Additional recommendations and suggestions are forthcoming. Prognosis is guarded. We'll make a decision about antibiotics. Labs medications and x-rays are all reviewed. Critical care time 32 minutes Plan dated 11/27/2017 The patient will have a daily eruption of sedation. We'll attempt the patient to be on PSV 8 CPAP of 5. Propofol is being weaned off. The patient is being nourished with vital high protein at goal. The patient remains on IV heparin. X-rays labs and medications are all reviewed. Return of blood gases are adequate. We'll continue to follow closely. Prognosis is guarded. Hopefully he will do well with his spontaneous breathing trial. Critical care time 33 minutes Plan dated November 28 The patient's doing relatively well. He was extubated yesterday. He is on O2 at 4 L/m by nasal cannula. At nighttime he is on BiPAP at 10 and 5 and 40%. The patient's IV will be discontinued. The patient will be transferred out to [address] [place] [address]. No additional recommendations are made. The IV heparin was turned off. He was started on Lovenox for DVT prophylaxis. Additional recommendations and suggestions are forthcoming. The results of the VQ scan Dopplers of lower extremities and x-rays of the right foot and ankle shared with him. Time with Patient: Less than 30
[2017-11-28] MEDS: METOPROLOL TARTRATE 25 MG TAB PO SCH ×2 (10:20→20:27)
[2017-11-28] MEDS ORDERED: methylPREDNISolone SOD SUCCI 125 MG/2 ML VIAL IV STA (11:01)
--- NOTE | 2017-11-28 11:01 | P.PN ---
Subjective Progress Note Date: 11/28/17 Leonardo Hurst is a 57-year-old male who was brought to [facility] ED after having an episode of syncope, patient was evaluated in emergency room and was found to be hypoxemic he was started on high flow oxygen and then on BiPAP without significant improvement he was intubated in the emergency room and started on mechanical ventilation and was admitted to intensive care unit, pulmonary critical care consultation was requested. In the emergency room patient had an elevated d-dimer, and slight elevation in troponin level, he was started on IV heparin, computed tomography scan of the brain did not reveal any acute abnormality. Patient was also found to have elevated CPK level suggestive of rhabdomyolysis, and elevated BUN and creatinine. Currently patient is admitted to intensive care unit he is intubated sedated maintained on mechanical ventilation, his chest x-ray was suggestive of pneumonia he was started on IV antibiotics, he is maintained on IV heparin and IV Solu-Medrol. CT angiogram of the chest was not done due to elevated creatinine, cardiology consultation was requested due to elevated troponin levels, echocardiogram was ordered. Patient was noticed by ICU nurse to be moving all his extremities except the right lower extremity, reviewed there is no history of stroke or any history suggestive of previous weakness or analysis in the right lower extremity, neurology consultation was requested carotid Doppler was ordered and repeat computed tomography scan will be set for tomorrow morning. Patient was very confused on presentation to emergency room, toxicology screen was not done in the emergency room, will order a urine tox screen at this time which will be of limited value due to multiple medication that he has received already. On 11/27/2017 patient was extubated this morning he is alert, responsive in no apparent distress, he states that he fell couple of times at home he was on the floor 1-2 hours before a friend of his came in and called EMS, right lower extremity still has significant weakness, computed tomography scan of the brain done on admission as well as repeat computed tomography scan of the brain done on 11/26/2017 did not reveal any significant abnormality. Echocardiogram was done and revealed ejection fraction of 40-45%, carotid Doppler was done and revealed no significant stenosis. On 11/28/2017 patient is alert and oriented 3 in no apparent distress he is complaining of right foot and ankle pain otherwise he denies any complaints, there is no shortness of breath at rest patient is maintained on oxygen 4 L nasal cannula, patient has occasional cough he denies any chest pain there is no fever or chills no headache no dizziness no nausea or vomiting no abdominal pain no diarrhea and no urinary symptoms. Objective - Vital Signs Vital signs: Vital Signs Temp 98.1 F 11/28/17 08:00 Pulse 71 11/28/17 09:00 Resp 52 H 11/28/17 09:00 BP 144/85 11/28/17 09:00 Pulse Ox 94 L 11/28/17 09:00 Intake & Output 11/27/17 11/28/17 11/28/17 18:59 06:59 18:59 Intake Total 800.24 1150 100 Output Total 2190 4240 195 Balance -1389.76 -3090 -95 Weight 137.8 kg Intake: IV 600 650 100 NS 600 650 100 Intake, IV Titration 98.24 250 Amount Azithromycin 500 mg In 250 Sodium Chloride 0.9% 250 ml @ 125 mls/hr IVPB HS [facility]IMA Rx#:[id number] Propofol 1,000 mg In 98.24 Empty Bag 1 bag @ Titrate IV .Q0M [facility] Rx#: [id number] Oral 250 Tube Feeding 72 Other 30 Output: Urine 2190 4240 195 Other: Voiding Method Indwelling Catheter Indwelling Catheter Indwelling Catheter - Exam Patient is alert and responsive in no apparent distress HEENT head normocephalic and atraumatic Case supple no JVD no goiter no lymphadenopathy Chest exam reveals a few scattered crackles no wheezing Cardiac exam reveals regular heart sounds no gallops no murmurs Abdomen is soft nontender no organomegaly with normal bowel sounds Extremity exam reveals no pretibial edema no cyanosis or clubbing, right foot and ankle are swollen and tender to touch - Labs CBC & Chem 7: 11/28/17 04:12 11/28/17 04:12 Labs: Abnormal Lab Results - Last 24 Hours (Table) 11/27/17 11/27/17 11/27/17 Range/Units 03:42 12:21 16:27 RDW (11.5-15.5) % Plt Count (150-450) k/uL APTT (22.0-30.0) sec Sodium (137-145) mmol/L Carbon Dioxide (22-30) mmol/L BUN (9-20) mg/dL Creatinine (0.66-1.25) mg/dL Glucose (74-99) mg/dL POC Glucose (mg/dL) 131 H 139 H (75-99) mg/dL Homocysteine 24.07 H (4.00-14.00) umol/L 11/27/17 11/27/17 11/28/17 Range/Units 20:03 23:40 04:03 RDW (11.5-15.5) % Plt Count (150-450) k/uL APTT (22.0-30.0) sec Sodium (137-145) mmol/L Carbon Dioxide (22-30) mmol/L BUN (9-20) mg/dL Creatinine (0.66-1.25) mg/dL Glucose (74-99) mg/dL POC Glucose (mg/dL) 113 H 101 H 101 H (75-99) mg/dL Homocysteine (4.00-14.00) umol/L 11/28/17 11/28/17 11/28/17 Range/Units 04:12 04:12 04:12 RDW 16.9 H (11.5-15.5) % Plt Count 115 L (150-450) k/uL APTT 20.5 L (22.0-30.0) sec Sodium 146 H (137-145) mmol/L Carbon Dioxide 34 H (22-30) mmol/L BUN 38 H (9-20) mg/dL Creatinine 1.60 H (0.66-1.25) mg/dL Glucose 108 H (74-99) mg/dL POC Glucose (mg/dL) (75-99) mg/dL Homocysteine (4.00-14.00) umol/L 11/28/17 Range/Units 07:34 RDW (11.5-15.5) % Plt Count (150-450) k/uL APTT (22.0-30.0) sec Sodium (137-145) mmol/L Carbon Dioxide (22-30) mmol/L BUN (9-20) mg/dL Creatinine (0.66-1.25) mg/dL Glucose (74-99) mg/dL POC Glucose (mg/dL) 103 H (75-99) mg/dL Homocysteine (4.00-14.00) umol/L Microbiology - Last 24 Hours (Table) 11/25/17 20:12 Gram Stain - Final Sputum Sputum Culture - Final Assessment and Plan Plan: #1 episode of syncope #2 acute hypoxic respiratory failure, requiring intubation and mechanical ventilation, now patient has been extubated this morning and is tolerating well #3 retrocardiac infiltrate on chest x-ray suggestive of pneumonia started on IV antibiotics #4 elevated d-dimer, patient was started on IV heparin, awaiting further testing #5 slight elevation in troponin level cardiology consult is requested patient is maintained on IV heparin #6 rhabdomyolysis maintained on IV fluid Will monitor kidney function #7 acute renal failure continue with IV fluid monitor kidney function #8 COPD exacerbation maintained on IV Solu-Medrol and inhaled bronchodilators #9 underlying history of diabetes mellitus maintained on insulin sliding scale #10 underlying history of cardiomyopathy, patient has history of AICD placement #11 underlying history of coronary artery disease with myocardial infarction in the past with history of cardiac catheterization and stent placement #12 underlying history of sleep apnea #13 underlying history of hypertension #14 underlying history of hyperlipidemia #15 lack of movement in the right lower extremity spontaneously and in response to stimuli, neurology consultation was requested, echocardiogram reveals evidence of depressed ejection fraction to 40-45% carotid Doppler did not reveal any significant stenosis, it's not clear whether lack of movement in the right lower extremity is related to pain. #16 right ankle and foot swelling, uric acid is 8.1 which is in high normal range, patient is on Zyloprim 100 mg daily, we are unable to use anti- inflammatory medication due to kidney function, will give 1 dose of Solu-Medrol today and monitor progress. Today patient was seen and examined, medication and labs were reviewed Input from pulmonary critical and cardiology care reviewed Will follow closely
[2017-11-28 11:40] LABS: Glucose,Whole Blood 116 mg/dL (75-99)
[2017-11-28 16:48] LABS: Glucose,Whole Blood 150 mg/dL (75-99)
[2017-11-28] MEDS: cefTRIAXone IN SWFI 1,000 MG/10 ML SYRINGE IVP SCH (19:57)
[2017-11-28] MEDS ORDERED: IPRATROPIUM-ALBUTEROL 3 ML NEB INHALATION PRN (20:06)
--- NOTE | 2017-11-28 20:18 | PN ---
PROGRESS NOTE Patient is seen for followup for acute kidney injury. He was extubated last evening. Currently patient is comfortable, awake. He is not in any acute distress. Blood pressure this morning was 135/81. Patient is afebrile. Heart rate about 70 to 80 per minute. EXAMINATION OF THE HEART: S1, S2. EXAMINATION OF LUNGS: Bilateral breath sounds are heard. ABDOMEN: Soft, non-tender. Examination of lower extremities shows trace edema bilaterally. [employer] exam is grossly intact. Patient moving all 4 extremities. Labs show sodium 146, potassium 3.8, BUN 38, serum creatinine 1.6 mg/dL. Hemoglobin was 14.8. ASSESSMENT: 1. Acute kidney injury, acute tubular necrosis, secondary to hypotension and hypoperfusion, currently nonoliguric and improved. 2. Volume overload. Patient had been on IV Lasix, currently switched to oral Bumex. 3. Acute respiratory failure requiring ventilation, currently extubated. 4. Dyslipidemia. 5. Cardiomyopathy, ejection fraction 40% to 45%. 6. Chronic kidney disease with previous creatinine 1.6 in June of 2017 secondary to diabetic nephropathy, NKF stage III. PLAN: Discontinue IV fluids. May continue with oral Bumex. Consider tapering off clonidine and adding LYNSEY inhibitors down the road, most likely as outpatient. MMODL / IJN: [id number] /
[2017-11-28] MEDS: PRAVASTATIN SODIUM 40 MG TAB PO SCH (20:27)
[2017-11-28] MEDS: QUEtiapine 200 MG TAB PO SCH (20:27)
[2017-11-28] MEDS: AZITHROMYCIN 500 MG TAB PO SCH (20:27)
[2017-11-28] MEDS: traZODone HCL 100 MG TAB PO SCH (20:28)
[2017-11-28 20:45] LABS: Glucose,Whole Blood 208 mg/dL (75-99)
[2017-11-28 23:42] LABS: Glucose,Whole Blood 254 mg/dL (75-99)
[2017-11-29 04:13] LABS: Glucose,Whole Blood 92 mg/dL (75-99)
[2017-11-29] MEDS: INSULIN ASPART 100 UNIT/ML 1 ML 10 ML VIAL SQ SCH ×5 (05:01→20:37)
[2017-11-29 06:18] LABS: Anisocytosis Slight; Basophils % (A) 0 %; Eosinophils # (A) 0.1 k/uL (0-0.7); Eosinophils % (A) 1 %; HCT 46.9 % (39.0-53.0); Hypochromasia Slight; Lymphocytes # (A) 1.6 k/uL (1.0-4.8); Lymphocytes % (A) 15 %; MCH 29.2 pg (25.0-35.0); MCV 91.2 fL (80.0-100.0); Mean Platelet Volume 9.3; Monocytes # (A) 0.7 k/uL (0-1.0); Monocytes % (A) 7 %; Neutrophils # (A) 7.6 k/uL (1.3-7.7); Neutrophils % (A) 73 %; Platelet Count 121 k/uL (150-450); RBC 5.14 m/uL (4.30-5.90); RDW 16.5 % (11.5-15.5); WBC 10.5 k/uL (3.8-10.6)
[2017-11-29 06:40] LABS: Albumin 3.2 g/dL (3.5-5.0); Calcium 8.5 mg/dL (8.4-10.2); Magnesium 2.1 mg/dL (1.6-2.3); Phosphorus 4.8 mg/dL (2.5-4.5); Potassium 4.3 mmol/L (3.5-5.1); Total Bilirubin 0.6 mg/dL (0.2-1.3); Total Protein 5.8 g/dL (6.3-8.2)
[2017-11-29] MEDS: IPRATROPIUM-ALBUTEROL 3 ML NEB INHALATION SCH ×4 (07:15→20:00)
[2017-11-29] MEDS: amLODIPine 10 MG TAB PO SCH (09:56)
[2017-11-29] MEDS: BUMETANIDE 1 MG TAB PO SCH ×3 (09:56→20:31)
[2017-11-29] MEDS: ASPIRIN 325 MG TAB PO SCH (09:56)
[2017-11-29] MEDS: ALLOPURINOL 100 MG TAB PO SCH (09:56)
[2017-11-29] MEDS: ESCITALOPRAM 10 MG TAB PO SCH (09:57)
[2017-11-29] MEDS: METOPROLOL TARTRATE 25 MG TAB PO SCH ×2 (09:57→20:32)
[2017-11-29] MEDS: cloNIDine HCL 0.2 MG TAB PO SCH ×2 (09:57→16:50)
[2017-11-29] MEDS: GABAPENTIN 300 MG CAP PO SCH (09:57)
[2017-11-29] MEDS: hydrALAZINE HCL 50 MG TAB PO SCH ×2 (09:57→16:50)
[2017-11-29] MEDS: PREGABALIN 75 MG CAP PO SCH ×2 (09:58→20:35)
[2017-11-29] MEDS: PANTOPRAZOLE 40 MG/10 ML VIAL IV SCH (09:58)
[2017-11-29] MEDS: ENOXAPARIN 40 MG/0.4 ML SYRINGE SQ SCH (09:59)
[2017-11-29] MEDS: methylPREDNISolone SOD SUCCI 125 MG/2 ML VIAL IV SCH (10:12)
--- NOTE | 2017-11-29 11:11 | P.PN ---
Subjective Progress Note Date: 11/29/17 Principal diagnosis: Syncope This is a 57-year-old -Greek gentleman with known history of coronary artery disease and prior PCI, prior myocardial infarction, ischemic cardiomyopathy with prior AICD. chronic renal insufficiency, sleep apnea, hypertension, diabetes, COPD, hyperlipidemia, who presented to the hospital after experiencing a syncopal episode at home. VQ scan was low probability for PE, venous duplex study negative for DVT. Patient was seen and examined on the telemetry unit today, breathing is overall stable. Blood pressure this morning 138/80, heart rate in the 70s. Afebrile. 92% on 4 L of oxygen. White blood cell count 10.5, hemoglobin 15, platelet count 121. Sodium 144, potassium 4.3, BUN 38, creatinine 1.4. Patient did have an EEG performed with no significant abnormality. Device was interrogated, patient was noted to have 1 brief run of nonsustained ventricular tachycardia, no treatments noted. Objective - Vital Signs Vital signs: Vital Signs Temp 96.9 F L 11/29/17 08:17 Pulse 74 11/29/17 08:17 Resp 14 11/29/17 08:17 BP 140/82 11/29/17 08:17 Pulse Ox 92 L 11/29/17 08:17 Intake & Output 11/28/17 11/29/17 11/29/17 18:59 06:59 18:59 Intake Total 340 450 240 Output Total 1895 1775 Balance -1555 -1325 240 Weight 136 kg Intake: IV 100 NS 100 Oral 240 450 240 Output: Urine 1895 1775 Other: Voiding Method Indwelling Catheter Indwelling Catheter Urinal # Voids 2 - Exam PHYSICAL EXAMINATION: HEENT: Head is atraumatic, normocephalic. Pupils equal, round. Neck is supple. There is no elevated jugular venous pressure. HEART EXAMINATION: Heart S1, S2 normal. No murmur or gallop heard. CHEST EXAMINATION: Lungs reveal scattered coarse rhonchi throughout. ABDOMEN: Soft, nontender. Bowel sounds are heard. No organomegaly noted. EXTREMITIES: 2+ peripheral pulses with no evidence of peripheral edema and no calf tenderness noted. NEUROLOGIC patient is awake, alert and oriented -3. Very sleepy. . - Labs CBC & Chem 7: 11/29/17 05:55 11/29/17 05:55 Labs: Abnormal Lab Results - Last 24 Hours (Table) 11/28/17 11/28/17 11/28/17 Range/Units 11:36 16:39 20:41 RDW (11.5-15.5) % Plt Count (150-450) k/uL Carbon Dioxide (22-30) mmol/L BUN (9-20) mg/dL Creatinine (0.66-1.25) mg/dL POC Glucose (mg/dL) 116 H 150 H 208 H (75-99) mg/dL Phosphorus (2.5-4.5) mg/dL Total Protein (6.3-8.2) g/dL Albumin (3.5-5.0) g/dL 11/28/17 11/29/17 11/29/17 Range/Units 23:39 05:55 05:55 RDW 16.5 H (11.5-15.5) % Plt Count 121 L (150-450) k/uL Carbon Dioxide 34 H (22-30) mmol/L BUN 38 H (9-20) mg/dL Creatinine 1.47 H (0.66-1.25) mg/dL POC Glucose (mg/dL) 254 H (75-99) mg/dL Phosphorus 4.8 H (2.5-4.5) mg/dL Total Protein 5.8 L (6.3-8.2) g/dL Albumin 3.2 L (3.5-5.0) g/dL Assessment and Plan Plan: Assessment and plan #1 syncope, exact etiology unknown. VQ scan was low probability for PE, deep duplex study negative for DVT. #2 mild abnormality in troponin, likely secondary to supply and demand mismatch. #3 known history of coronary artery disease with prior myocardial infarction, prior PCI #4 ischemic cardio myopathy with prior AICD implant, device interrogated, functioning appropriately, no treatments from the ICD, one brief episode of nonsustained VT noted. #5 hypertension #6 hyperlipidemia #7 diabetes #8 sleep apnea #9 possible aspiration pneumonia Plan From cardiology's perspective, we will recommend to continue the patient on his current medications. Blood pressure under much better control today. On discharge we would recommend the patient on a 30 day event monitor to assess for any possible tachycardia or bradycardia arrhythmias. DNP note has been reviewed, I agree with a documented findings and plan of care. Patient was seen and examined.
[2017-11-29 11:12] VITALS: BMI 38.5
--- NOTE | 2017-11-29 11:34 | P.PN ---
Subjective Progress Note Date: 11/29/17 Principal diagnosis: Respiratory failure Progress note dated 11/27/2017 This a 57-year-old black male with a history of hypoxemic respiratory failure status changes my cardial infarction pneumonia acute kidney injury CAD angina pectoris heart failure COPD diabetes hyperlipidemia hypertension myocardial infarction sleep apnea syndrome. The patient currently is on the ventilator. The patient is on the assist control mode with a rate of 22 tidal volume 500 FiO2 of 60% and PEEP of 8. Arterial blood gases show a PaO2 of 77 a pCO2 45 and a pH of 7.49. The patient has a saline IV at 100 mL an hour propofol at 20 mics per kilogram per minute heparin via weightbase protocol and vital high protein at a rate of 36 with a goal of 36 mL/h. We will attempt a daily eruption of sedation a spontaneous breathing trial in the pre-PSV of a CPAP of 5. The patient may not be ready for weaning as yet. The patient's chest x-ray shows a minimal infiltrate/atelectasis at the left lung base. May relate to aspiration. Progress note dated 11/28/2017 57-year-old black male with history of hypoxemic respiratory failure, status post myocardial infarction pneumonia acute kidney injury CAD angina pectoris heart failure COPD diabetes hyperlipidemia hypertension myocardial infarction sleep apnea syndrome. The patient is not really sure what happened to him. He states he was lightheaded and dizzy. He fell to the floor. Apparently did not loose consciousness. We are thinking that maybe had a pulmonary embolism. Dopplers of lower extremities were negative. VQ scan was low probability. He also was complaining of pain in the right foot and ankle but x-rays were negative. I thought it might be gout in that joint but his uric acid was 8.1. He was extubated yesterday on November 27. He is on O2 at 4 L. At nighttime because of sleep apnea syndrome, he is on BiPAP at 10 and 5 and 40%. His only on a saline IV at 50 mL an hour. Progress note dated 11/29/2017 57-year-old white male with a history of hypoxemic respiratory failure, with a history of myocardial infarction pneumonia acute kidney injury CAD angina pectoris heart failure COPD diabetes hyperlipidemia hypertension myocardial infarction and sleep apnea syndrome. The patient apparently was lightheaded and dizzy home. Apparently fell to the floor without loss of consciousness. Initially they thought maybe had a pulmonary embolism but his VQ scan was essentially negative and her Dopplers were negative as well. His some pain in his right foot but x-rays were negative. We thought maybe he had an acute gouty episodes but uric acid was normal. He was extubated on November 27. He was moved out of the ICU yesterday. He is currently on O2 at 4 L. Doing relatively well. At nighttime, he's been using BiPAP at 10 and 5 and 40%. He' s had a basic IV. Objective - Vital Signs Vital signs: Vital Signs Temp 97.7 F 11/29/17 10:54 Pulse 67 11/29/17 10:54 Resp 14 11/29/17 10:54 BP 174/101 11/29/17 10:54 Pulse Ox 96 11/29/17 10:54 Intake & Output 11/28/17 11/29/17 11/29/17 18:59 06:59 18:59 Intake Total 340 450 840 Output Total 1895 1775 940 Balance -1555 -1325 -100 Weight 136 kg 136 kg Intake: IV 100 NS 100 Oral 240 450 840 Output: Urine 1895 1775 940 Other: Voiding Method Indwelling Catheter Indwelling Catheter Urinal # Voids 2 1 - Exam No acute distress. The patient is awake and alert. He is oriented 3. HEENT examination is grossly unremarkable. Mucous membranes are moist. . Neck supple. Full range of motion. No adenopathy thyromegaly or neck vein distention. Cardiovascular examination reveals regular rhythm rate. S1-S2 normal. No S3 or S4. No discernible murmur noted. Heart sounds are distant. Lungs reveal relatively clear breath sounds. A few scattered rhonchi. No wheezes or crackles. Abdomen soft bowel sounds are heard. No masses or tenderness. Extremities are intact. No cyanosis clubbing or edema. Skin is without rash or lesion. Neurologic examination is brief but nonfocal. - Labs CBC & Chem 7: 11/29/17 05:55 11/29/17 05:55 Labs: Abnormal Lab Results - Last 24 Hours (Table) 11/28/17 11/28/17 11/28/17 Range/Units 11:36 16:39 20:41 RDW (11.5-15.5) % Plt Count (150-450) k/uL Carbon Dioxide (22-30) mmol/L BUN (9-20) mg/dL Creatinine (0.66-1.25) mg/dL POC Glucose (mg/dL) 116 H 150 H 208 H (75-99) mg/dL Phosphorus (2.5-4.5) mg/dL Total Protein (6.3-8.2) g/dL Albumin (3.5-5.0) g/dL 11/28/17 11/29/17 11/29/17 Range/Units 23:39 05:55 05:55 RDW 16.5 H (11.5-15.5) % Plt Count 121 L (150-450) k/uL Carbon Dioxide 34 H (22-30) mmol/L BUN 38 H (9-20) mg/dL Creatinine 1.47 H (0.66-1.25) mg/dL POC Glucose (mg/dL) 254 H (75-99) mg/dL Phosphorus 4.8 H (2.5-4.5) mg/dL Total Protein 5.8 L (6.3-8.2) g/dL Albumin 3.2 L (3.5-5.0) g/dL Assessment and Plan Assessment: Assessment Hypoxemic respiratory failure of unclear etiology Mental status changes, rule out CVA History of myocardial infarction History of pneumonia Acute kidney injury Coronary artery disease Angina pectoris Heart failure COPD Diabetes mellitus Hyperlipidemia Hypertension Myocardial infarction Sleep apnea syndrome Possible aspiration pneumonia No evidence of DVT or pulmonary embolism Plan: Plan dated 11/26/2017 The patient's PEEP was increased from 5 to 8. I asked respiratory therapist to wean the FiO2 possible. The patient will be started on tube feeds. We'll do a daily eruption of sedation. Neurology was consulted because of possible CVA. We'll DC the ventilation perfusion lung scan. Additional recommendations and suggestions are forthcoming. Prognosis is guarded. We'll make a decision about antibiotics. Labs medications and x-rays are all reviewed. Critical care time 32 minutes Plan dated 11/27/2017 The patient will have a daily eruption of sedation. We'll attempt the patient to be on PSV 8 CPAP of 5. Propofol is being weaned off. The patient is being nourished with vital high protein at goal. The patient remains on IV heparin. X-rays labs and medications are all reviewed. Return of blood gases are adequate. We'll continue to follow closely. Prognosis is guarded. Hopefully he will do well with his spontaneous breathing trial. Critical care time 33 minutes Plan dated November 28 The patient's doing relatively well. He was extubated yesterday. He is on O2 at 4 L/m by nasal cannula. At nighttime he is on BiPAP at 10 and 5 and 40%. The patient's IV will be discontinued. The patient will be transferred out to [address] [place] [address]. No additional recommendations are made. The IV heparin was turned off. He was started on Lovenox for DVT prophylaxis. Additional recommendations and suggestions are forthcoming. The results of the VQ scan Dopplers of lower extremities and x-rays of the right foot and ankle shared with him. Plan dated 11/29/2017 Patient is doing relatively well. The patient was extubated on November 27. Is on O2 at between 2-4 L/m. Using his BiPAP device at nighttime and an IPAP of 10 and EPAP of 5. The FiO2 set of 40%. The patient is doing relatively well. The patient's a Dopplers were negative. VQ scan was low probability. X-rays of the ankle and foot were negative. We'll continue to follow. Prognosis is guarded. Circumstances leading up to this episode, not clear. Time with Patient: Less than 30
[2017-11-29 11:37] LABS: Glucose,Whole Blood 116 mg/dL (75-99)
--- NOTE | 2017-11-29 13:43 | PN ---
PROGRESS NOTE Patient is seen for followup for acute kidney injury. Renal function has continued to improve. Serum creatinine is at 1.47 mg/dL today. The patient is comfortable. He is not in any acute distress. Blood pressure is 140/82, heart rate 67 per minute. He is afebrile. Examination of the heart S1, S2. Examination of the lungs bilateral breath sounds are heard. Abdomen is soft, nontender. Examination lower extremity shows trace edema bilaterally. [employer] exam is grossly intact. LABS SHOW: Sodium 144, potassium 4.3, chloride 101, BUN 38, serum creatinine 1.47, hemoglobin 15.0 g/dL, albumin 3.2. ASSESSMENT: 1. Status post acute hypoxic respiratory failure needing vent support, currently extubated and doing well. 2. Encephalopathy, currently improved. 3. Possible aspiration pneumonia maintained on antibiotics. 4. Cardiomyopathy, ejection fraction 40-45%. 5. Chronic kidney disease and NKF stage III, with previous creatinine 1.6 in June of 2017 secondary to diabetic nephropathy and nephrosclerosis. PLAN: Continue to avoid nephrotoxic medications and the patient will need monitoring of renal function as outpatient. MMODL / IJN: [id number] /
[2017-11-29 15:52] LABS: Glucose,Whole Blood 126 mg/dL (75-99)
--- NOTE | 2017-11-29 17:09 | P.PN ---
Subjective Progress Note Date: 11/29/17 Leonardo Hurst is a 57-year-old male who was brought to [facility] ED after having an episode of syncope, patient was evaluated in emergency room and was found to be hypoxemic he was started on high flow oxygen and then on BiPAP without significant improvement he was intubated in the emergency room and started on mechanical ventilation and was admitted to intensive care unit, pulmonary critical care consultation was requested. In the emergency room patient had an elevated d-dimer, and slight elevation in troponin level, he was started on IV heparin, computed tomography scan of the brain did not reveal any acute abnormality. Patient was also found to have elevated CPK level suggestive of rhabdomyolysis, and elevated BUN and creatinine. Currently patient is admitted to intensive care unit he is intubated sedated maintained on mechanical ventilation, his chest x-ray was suggestive of pneumonia he was started on IV antibiotics, he is maintained on IV heparin and IV Solu-Medrol. CT angiogram of the chest was not done due to elevated creatinine, cardiology consultation was requested due to elevated troponin levels, echocardiogram was ordered. Patient was noticed by ICU nurse to be moving all his extremities except the right lower extremity, reviewed there is no history of stroke or any history suggestive of previous weakness or analysis in the right lower extremity, neurology consultation was requested carotid Doppler was ordered and repeat computed tomography scan will be set for tomorrow morning. Patient was very confused on presentation to emergency room, toxicology screen was not done in the emergency room, will order a urine tox screen at this time which will be of limited value due to multiple medication that he has received already. On 11/27/2017 patient was extubated this morning he is alert, responsive in no apparent distress, he states that he fell couple of times at home he was on the floor 1-2 hours before a friend of his came in and called EMS, right lower extremity still has significant weakness, computed tomography scan of the brain done on admission as well as repeat computed tomography scan of the brain done on 11/26/2017 did not reveal any significant abnormality. Echocardiogram was done and revealed ejection fraction of 40-45%, carotid Doppler was done and revealed no significant stenosis. On 11/28/2017 patient is alert and oriented 3 in no apparent distress he is complaining of right foot and ankle pain otherwise he denies any complaints, there is no shortness of breath at rest patient is maintained on oxygen 4 L nasal cannula, patient has occasional cough he denies any chest pain there is no fever or chills no headache no dizziness no nausea or vomiting no abdominal pain no diarrhea and no urinary symptoms. On 11/29/2017 patient is alert and oriented resting comfortably in bed he is complaining of right foot and ankle pain otherwise he denies any complaints, there is no shortness of breath no chest pain patient has occasional cough, there is no fever or chills no headache no dizziness no nausea or vomiting no abdominal pain no diarrhea and no urinary symptoms. Objective - Vital Signs Vital signs: Vital Signs Temp 97.6 F 11/29/17 16:00 Pulse 77 11/29/17 16:00 Resp 20 11/29/17 16:00 BP 138/70 11/29/17 16:00 Pulse Ox 96 11/29/17 16:00 Intake & Output 11/28/17 11/29/17 11/29/17 18:59 06:59 18:59 Intake Total 333 322 6307 Output Total 1895 1775 2415 Balance -1555 -1325 -1335 Weight 136 kg 136 kg Intake: IV 100 NS 100 Oral 058 969 8030 Output: Urine 1895 1775 2415 Other: Voiding Method Indwelling Catheter Indwelling Catheter Urinal # Voids 2 1 - Exam Patient is alert and responsive in no apparent distress HEENT head normocephalic and atraumatic Case supple no JVD no goiter no lymphadenopathy Chest exam reveals a few scattered crackles no wheezing Cardiac exam reveals regular heart sounds no gallops no murmurs Abdomen is soft nontender no organomegaly with normal bowel sounds Extremity exam reveals no pretibial edema no cyanosis or clubbing, right foot and ankle are swollen and tender to touch - Labs CBC & Chem 7: 11/29/17 05:55 11/29/17 05:55 Labs: Abnormal Lab Results - Last 24 Hours (Table) 11/28/17 11/28/17 11/29/17 Range/Units 20:41 23:39 05:55 RDW 16.5 H (11.5-15.5) % Plt Count 121 L (150-450) k/uL Carbon Dioxide (22-30) mmol/L BUN (9-20) mg/dL Creatinine (0.66-1.25) mg/dL POC Glucose (mg/dL) 208 H 254 H (75-99) mg/dL Phosphorus (2.5-4.5) mg/dL Total Protein (6.3-8.2) g/dL Albumin (3.5-5.0) g/dL 11/29/17 11/29/17 11/29/17 Range/Units 05:55 11:26 15:32 RDW (11.5-15.5) % Plt Count (150-450) k/uL Carbon Dioxide 34 H (22-30) mmol/L BUN 38 H (9-20) mg/dL Creatinine 1.47 H (0.66-1.25) mg/dL POC Glucose (mg/dL) 116 H 126 H (75-99) mg/dL Phosphorus 4.8 H (2.5-4.5) mg/dL Total Protein 5.8 L (6.3-8.2) g/dL Albumin 3.2 L (3.5-5.0) g/dL Assessment and Plan Plan: #1 episode of syncope #2 acute hypoxic respiratory failure, requiring intubation and mechanical ventilation, now patient has been extubated this morning and is tolerating well #3 retrocardiac infiltrate on chest x-ray suggestive of pneumonia started on IV antibiotics #4 elevated d-dimer, patient was started on IV heparin, awaiting further testing #5 slight elevation in troponin level cardiology consult is requested patient is maintained on IV heparin #6 rhabdomyolysis maintained on IV fluid Will monitor kidney function #7 acute renal failure continue with IV fluid monitor kidney function #8 COPD exacerbation maintained on IV Solu-Medrol and inhaled bronchodilators #9 underlying history of diabetes mellitus maintained on insulin sliding scale #10 underlying history of cardiomyopathy, patient has history of AICD placement #11 underlying history of coronary artery disease with myocardial infarction in the past with history of cardiac catheterization and stent placement #12 underlying history of sleep apnea #13 underlying history of hypertension #14 underlying history of hyperlipidemia #15 lack of movement in the right lower extremity spontaneously and in response to stimuli, neurology consultation was requested, echocardiogram reveals evidence of depressed ejection fraction to 40-45% carotid Doppler did not reveal any significant stenosis, it's not clear whether lack of movement in the right lower extremity is related to pain. #16 right ankle and foot swelling, uric acid is 8.1 which is in high normal range, patient is on Zyloprim 100 mg daily, we are unable to use anti- inflammatory medication due to kidney function, foot and ankle pain and swelling improved yesterday was Solu-Medrol use will give 1 more dose of Solu- Medrol today and monitor progress. Today patient was seen and examined, medication and labs were reviewed Input from pulmonary critical and cardiology care reviewed Will follow closely
[2017-11-29] MEDS ORDERED: methylPREDNISolone SOD SUCCI 125 MG/2 ML VIAL IV STA (17:10)
[2017-11-29] MEDS: cefTRIAXone IN SWFI 1,000 MG/10 ML SYRINGE IVP SCH (18:21)
[2017-11-29] MEDS: AZITHROMYCIN 500 MG TAB PO SCH (20:31)
[2017-11-29] MEDS: PRAVASTATIN SODIUM 40 MG TAB PO SCH (20:33)
[2017-11-29] MEDS: traZODone HCL 100 MG TAB PO SCH (20:34)
[2017-11-29] MEDS: QUEtiapine 200 MG TAB PO SCH (20:35)
[2017-11-29 20:39] LABS: Glucose,Whole Blood 120 mg/dL (75-99)
[2017-11-30] MEDS: hydrALAZINE HCL 50 MG TAB PO SCH ×4 (01:46→23:17)
[2017-11-30] MEDS: cloNIDine HCL 0.2 MG TAB PO SCH ×3 (01:47→16:00)
[2017-11-30 06:14] LABS: Glucose,Whole Blood 100 mg/dL (75-99)
[2017-11-30] MEDS: INSULIN ASPART 100 UNIT/ML 1 ML 10 ML VIAL SQ SCH ×4 (06:17→23:15)
[2017-11-30 06:43] LABS: Albumin 3.3 g/dL (3.5-5.0); Anisocytosis Slight; Basophils # (A) 0.1 k/uL (0-0.2); Basophils % (A) 1 %; Calcium 8.7 mg/dL (8.4-10.2); Eosinophils # (A) 0.3 k/uL (0-0.7); Eosinophils % (A) 4 %; HGB 15.8 gm/dL (13.0-17.5); Hypochromasia Slight; Lymphocytes # (A) 2.4 k/uL (1.0-4.8); Lymphocytes % (A) 32 %; MCH 30.1 pg (25.0-35.0); MCHC 32.9 g/dL (31.0-37.0); MCV 91.5 fL (80.0-100.0); Mean Platelet Volume 9.6; Monocytes # (A) 0.7 k/uL (0-1.0); Monocytes % (A) 10 %; Neutrophils # (A) 3.7 k/uL (1.3-7.7); Neutrophils % (A) 50 %; Phosphorus 4.7 mg/dL (2.5-4.5); Platelet Count 118 k/uL (150-450); RBC 5.25 m/uL (4.30-5.90); RDW 16.2 % (11.5-15.5); Total Bilirubin 0.5 mg/dL (0.2-1.3); Total Protein 5.7 g/dL (6.3-8.2); WBC 7.5 k/uL (3.8-10.6)
[2017-11-30] MEDS: IPRATROPIUM-ALBUTEROL 3 ML NEB INHALATION SCH ×4 (07:51→20:04)
[2017-11-30] MEDS ORDERED: LACTULOSE 20 GM/30 ML CUP PO ONE (09:00)
[2017-11-30] MEDS: ENOXAPARIN 40 MG/0.4 ML SYRINGE SQ SCH (09:14)
[2017-11-30] MEDS: PANTOPRAZOLE 40 MG TABLET PO SCH (09:15)
[2017-11-30] MEDS: ASPIRIN 325 MG TAB PO SCH (09:15)
[2017-11-30] MEDS: ALLOPURINOL 100 MG TAB PO SCH (09:15)
[2017-11-30] MEDS: METOPROLOL TARTRATE 25 MG TAB PO SCH ×2 (09:15→23:16)
[2017-11-30] MEDS: DOCUSATE 100 MG CAP PO SCH ×3 (09:15→23:25)
[2017-11-30] MEDS: BUMETANIDE 1 MG TAB PO SCH ×3 (09:15→23:25)
[2017-11-30] MEDS: amLODIPine 10 MG TAB PO SCH (09:16)
[2017-11-30] MEDS: ESCITALOPRAM 10 MG TAB PO SCH (09:16)
[2017-11-30] MEDS: GABAPENTIN 300 MG CAP PO SCH (09:16)
[2017-11-30] MEDS: PREGABALIN 75 MG CAP PO SCH ×2 (09:20→23:21)
--- NOTE | 2017-11-30 10:36 | P.PN ---
Subjective Progress Note Date: 11/30/17 Leonardo Hurst is a 57-year-old male who was brought to [facility] ED after having an episode of syncope, patient was evaluated in emergency room and was found to be hypoxemic he was started on high flow oxygen and then on BiPAP without significant improvement he was intubated in the emergency room and started on mechanical ventilation and was admitted to intensive care unit, pulmonary critical care consultation was requested. In the emergency room patient had an elevated d-dimer, and slight elevation in troponin level, he was started on IV heparin, computed tomography scan of the brain did not reveal any acute abnormality. Patient was also found to have elevated CPK level suggestive of rhabdomyolysis, and elevated BUN and creatinine. Currently patient is admitted to intensive care unit he is intubated sedated maintained on mechanical ventilation, his chest x-ray was suggestive of pneumonia he was started on IV antibiotics, he is maintained on IV heparin and IV Solu-Medrol. CT angiogram of the chest was not done due to elevated creatinine, cardiology consultation was requested due to elevated troponin levels, echocardiogram was ordered. Patient was noticed by ICU nurse to be moving all his extremities except the right lower extremity, reviewed there is no history of stroke or any history suggestive of previous weakness or analysis in the right lower extremity, neurology consultation was requested carotid Doppler was ordered and repeat computed tomography scan will be set for tomorrow morning. Patient was very confused on presentation to emergency room, toxicology screen was not done in the emergency room, will order a urine tox screen at this time which will be of limited value due to multiple medication that he has received already. On 11/27/2017 patient was extubated this morning he is alert, responsive in no apparent distress, he states that he fell couple of times at home he was on the floor 1-2 hours before a friend of his came in and called EMS, right lower extremity still has significant weakness, computed tomography scan of the brain done on admission as well as repeat computed tomography scan of the brain done on 11/26/2017 did not reveal any significant abnormality. Echocardiogram was done and revealed ejection fraction of 40-45%, carotid Doppler was done and revealed no significant stenosis. On 11/28/2017 patient is alert and oriented 3 in no apparent distress he is complaining of right foot and ankle pain otherwise he denies any complaints, there is no shortness of breath at rest patient is maintained on oxygen 4 L nasal cannula, patient has occasional cough he denies any chest pain there is no fever or chills no headache no dizziness no nausea or vomiting no abdominal pain no diarrhea and no urinary symptoms. On 11/29/2017 patient is alert and oriented resting comfortably in bed he is complaining of right foot and ankle pain otherwise he denies any complaints, there is no shortness of breath no chest pain patient has occasional cough, there is no fever or chills no headache no dizziness no nausea or vomiting no abdominal pain no diarrhea and no urinary symptoms. On 11/30/2017 patient is alert and oriented x3, he is complaining of right foot and ankle pain, also complaining of constipation. otherwise he denies any complaints, there is no shortness of breath and no chest pain. patient has occasional cough, there is no fever or chills no headache no dizziness no nausea or vomiting no abdominal pain no diarrhea and no no burning was urination no frequency or urgency no hematuria. Objective - Vital Signs Vital signs: Vital Signs Temp 97.6 F 11/30/17 08:00 Pulse 84 11/30/17 08:05 Resp 16 11/30/17 08:00 BP 121/82 11/30/17 08:00 Pulse Ox 96 11/30/17 08:00 Intake & Output 11/29/17 11/30/17 11/30/17 18:59 06:59 18:59 Intake Total 1320 600 125 Output Total 3015 2475 100 Balance -5193 -1193 25 Weight 136 kg 131.5 kg Intake: Oral 1320 600 125 Output: Urine 3015 2475 100 Other: Voiding Method Urinal Urinal Urinal # Voids 1 1 # Bowel Movements 0 - Exam Patient is alert and responsive in no apparent distress HEENT head normocephalic and atraumatic Case supple no JVD no goiter no lymphadenopathy Chest exam reveals a few scattered crackles no wheezing Cardiac exam reveals regular heart sounds no gallops no murmurs Abdomen is soft nontender no organomegaly with normal bowel sounds Extremity exam reveals no pretibial edema no cyanosis or clubbing, right foot and ankle are swollen and tender to touch - Labs CBC & Chem 7: 11/30/17 05:34 11/30/17 05:34 Labs: Abnormal Lab Results - Last 24 Hours (Table) 11/29/17 11/29/17 11/29/17 Range/Units 11:26 15:32 20:37 RDW (11.5-15.5) % Plt Count (150-450) k/uL Chloride (98-107) mmol/L Carbon Dioxide (22-30) mmol/L BUN (9-20) mg/dL Creatinine (0.66-1.25) mg/dL Glucose (74-99) mg/dL POC Glucose (mg/dL) 116 H 126 H 120 H (75-99) mg/dL Phosphorus (2.5-4.5) mg/dL AST (17-59) U/L ALT (21-72) U/L Total Protein (6.3-8.2) g/dL Albumin (3.5-5.0) g/dL 11/30/17 11/30/17 11/30/17 Range/Units 05:34 05:34 06:12 RDW 16.2 H (11.5-15.5) % Plt Count 118 L (150-450) k/uL Chloride 95 L (98-107) mmol/L Carbon Dioxide 36 H (22-30) mmol/L BUN 41 H (9-20) mg/dL Creatinine 1.50 H (0.66-1.25) mg/dL Glucose 113 H (74-99) mg/dL POC Glucose (mg/dL) 100 H (75-99) mg/dL Phosphorus 4.7 H (2.5-4.5) mg/dL AST 63 H (17-59) U/L ALT 75 H (21-72) U/L Total Protein 5.7 L (6.3-8.2) g/dL Albumin 3.3 L (3.5-5.0) g/dL Assessment and Plan Plan: #1 episode of syncope #2 acute hypoxic respiratory failure, requiring intubation and mechanical ventilation, now patient has been extubated this morning and is tolerating well #3 retrocardiac infiltrate on chest x-ray suggestive of pneumonia started on IV antibiotics #4 elevated d-dimer, patient was started on IV heparin, awaiting further testing #5 slight elevation in troponin level cardiology consult is requested patient is maintained on IV heparin #6 rhabdomyolysis maintained on IV fluid Will monitor kidney function #7 acute renal failure continue with IV fluid monitor kidney function #8 COPD exacerbation maintained on IV Solu-Medrol and inhaled bronchodilators #9 underlying history of diabetes mellitus maintained on insulin sliding scale #10 underlying history of cardiomyopathy, patient has history of AICD placement #11 underlying history of coronary artery disease with myocardial infarction in the past with history of cardiac catheterization and stent placement #12 underlying history of sleep apnea #13 underlying history of hypertension #14 underlying history of hyperlipidemia #15 lack of movement in the right lower extremity spontaneously and in response to stimuli, neurology consultation was requested, echocardiogram reveals evidence of depressed ejection fraction to 40-45% carotid Doppler did not reveal any significant stenosis, it's not clear whether lack of movement in the right lower extremity is related to pain. #16 right ankle and foot swelling, likely acute gout. Uric acid is 8.1 which is in high normal range, patient is on Zyloprim 100 mg daily, we are unable to use anti-inflammatory medication due to kidney function, Patient given 2 doses of IV Solumedrol with improvement of pain and swelling #17 Elevated liver enzymes today, will hold Pravachol and monitor liver enzymes #18 Physical debility PT following consult Dr Grayson Today patient was seen and examined, medication and labs were reviewed Input from pulmonary critical and cardiology care reviewed Will follow closely
--- NOTE | 2017-11-30 12:27 | P.PN ---
Subjective Progress Note Date: 11/30/17 Principal diagnosis: Syncope This is a pleasant 57-year-old -[place] gentleman with history of coronary artery disease, prior PCI, prior NJ, ischemic cardiomyopathy with prior AICD, chronic renal insufficiency, sleep apnea, hypertension, diabetes, COPD and hyperlipidemia. Presents to the hospital after experiencing a syncopal episode at home. VQ scan showed low probability for PE, venous duplex study was negative for DVT. Device was interrogated and showed one brief episode of nonsustained ventricular tachycardia, no ICD discharges. Upon examination, patient is resting comfortably in bed. He denies any complaints of dizziness, lightheadedness, palpitations, chest discomfort, shortness of breath or further syncope. Laboratory values were reviewed and showed a hemoglobin of 15.8, potassium 4.0 and creatinine of 1.5. His vital signs have been stable. He's had no evidence of arrhythmias. Objective - Vital Signs Vital signs: Vital Signs Temp 97.0 F L 11/30/17 11:03 Pulse 92 11/30/17 11:45 Resp 18 11/30/17 11:04 BP 122/80 11/30/17 11:03 Pulse Ox 95 11/30/17 11:03 Intake & Output 11/29/17 11/30/17 11/30/17 18:59 06:59 18:59 Intake Total 1320 600 125 Output Total 3015 2475 300 Balance -1695 -1875 -175 Weight 136 kg 131.5 kg Intake: Oral 1320 600 125 Output: Urine 3015 2475 300 Other: Voiding Method Urinal Urinal Urinal # Voids 1 1 1 # Bowel Movements 0 - Exam PHYSICAL EXAMINATION: HEENT: Head is atraumatic, normocephalic. Pupils equal, round. Neck is supple. There is no elevated jugular venous pressure. HEART EXAMINATION: Heart sounds regular, S1 and S2 normal. No murmur or gallop heard. CHEST EXAMINATION: Lungs are clear to auscultation and precussion. No chest wall tenderness is noted on palpation or with deep breathing. ABDOMEN: Soft, nontender. Bowel sounds are heard. No organomegaly noted. EXTREMITIES: 2+ peripheral pulses with no evidence of peripheral edema and no calf tenderness noted. NEUROLOGIC patient is awake, alert and oriented x3. . - Labs CBC & Chem 7: 11/30/17 05:34 11/30/17 05:34 Labs: Abnormal Lab Results - Last 24 Hours (Table) 11/29/17 11/29/17 11/30/17 Range/Units 15:32 20:37 05:34 RDW 16.2 H (11.5-15.5) % Plt Count 118 L (150-450) k/uL Chloride (98-107) mmol/L Carbon Dioxide (22-30) mmol/L BUN (9-20) mg/dL Creatinine (0.66-1.25) mg/dL Glucose (74-99) mg/dL POC Glucose (mg/dL) 126 H 120 H (75-99) mg/dL Phosphorus (2.5-4.5) mg/dL AST (17-59) U/L ALT (21-72) U/L Total Protein (6.3-8.2) g/dL Albumin (3.5-5.0) g/dL 11/30/17 11/30/17 Range/Units 05:34 06:12 RDW (11.5-15.5) % Plt Count (150-450) k/uL Chloride 95 L (98-107) mmol/L Carbon Dioxide 36 H (22-30) mmol/L BUN 41 H (9-20) mg/dL Creatinine 1.50 H (0.66-1.25) mg/dL Glucose 113 H (74-99) mg/dL POC Glucose (mg/dL) 100 H (75-99) mg/dL Phosphorus 4.7 H (2.5-4.5) mg/dL AST 63 H (17-59) U/L ALT 75 H (21-72) U/L Total Protein 5.7 L (6.3-8.2) g/dL Albumin 3.3 L (3.5-5.0) g/dL Assessment and Plan Assessment: #1 syncope #2 mild abnormality in troponin, likely secondary to supply demand mismatch #3 known history of CAD with prior NJ and prior PCI #4 ischemic cardiomyopathy with prior AICD implantation, device interrogation shows normal functioning device with no ICD discharges and one brief episode of nonsustained ventricular tachycardia #5 hypertension #6 hyperlipidemia #7 diabetes #8 sleep apnea #9 possible aspiration pneumonia Plan: From surveillance inspector perspective, medications were reviewed we will continue the same. Patient is stable for discharge home he will follow-up with Dr. Lerner as an outpatient. The above dictated assessment and findings were discussed with signing physician. The impression and plan of care have been directed as dictated. Kylee Kuo, Nurse Practitioner, acting as scribe for signing physician.
[2017-11-30 12:35] LABS: Glucose,Whole Blood 128 mg/dL (75-99)
--- NOTE | 2017-11-30 12:50 | PN ---
PROGRESS NOTE Patient is seen for followup for acute kidney injury. His renal function continues to improve. Patient is doing well. He is expected to go home today. PHYSICAL EXAMINATION: Blood pressure is 122/80, heart rate 63 per minute. He is afebrile. Examination of the heart, S1, S2. Examination of the lungs, bilateral breath sounds are heard. Abdomen is soft, nontender. Examination of the lower extremities shows no significant edema. HPLC CHEMIST exam is grossly intact. LABS: Show sodium 140, potassium 4.0, hemoglobin of 15.8, BUN 41, serum creatinine 1.5 mg/dL. ASSESSMENT: 1. Acute kidney injury, acute tubular necrosis secondary to hypotension, hypoperfusion, currently improved and continuing to improve. 2. Status post acute hypoxic respiratory failure, currently doing well. 3. Hypertension, fairly well-controlled. 4. Type 2 diabetes, maintained on insulin. 5. Cardiomyopathy, ejection fraction 40% to 45%. 6. Chronic kidney disease stage III with previous creatinine 1.6 in June of 2017, secondary to diabetic nephropathy and nephrosclerosis. PLAN: Patient will need followup as outpatient, particularly if his serum creatinine does not continue to improve further. Otherwise, he could be followed by his PCP. MMODL / IJN: [id number] /
--- NOTE | 2017-11-30 13:00 | CDI ---
Last Revision, August 2017 Documentation Clarification Form Date: November 30, 2017 From: Sharlene Spain Admit Date: 11/25/2017 6:49:00 PM Patient Name: Leonardo Hurst Visit Number: [id number] ATTENTION: The Clinical Documentation Specialists (CDI) and [facility] Coding Staff appreciate your assistance in clarifying documentation. Please respond to the clarification below the line at the bottom and electronically sign. The CDI & [facility] Coding staff will review the response and follow-up if needed. Please note: Queries are made part of the Legal Health Record. If you have any questions, please contact the author of this message via ITS. Dr. Tess Regalado, History/Risk Factors:. cad, chest pain, chf, copd , dm, hyperlipidemia, htn, mi, pneumonia, renal disease, sleep apnea Clinical Indicators: VS/Pulse OX: on admission 91% on aerosol mask Chest X Ray: pulmonary edema likely on the basis of decompensated heart failure Treatment: Nasal Cannula, IV Lasix In your professional opinion, can you please clarify the acuity and type of CHF if known? Systolic Heart Failure: Acute Chronic Acute on Chronic Diastolic Heart Failure: Acute Chronic Acute on Chronic Systolic & Diastolic Heart Failure: Acute Chronic Acute on Chronic Heart Failure Unable to Determine Other, please specify Please continue to document in your progress notes , under the line below and/ or in the discharge summary in order to capture severity of illness and risk of mortality. Include clinical findings that support your diagnosis. MTDD
--- NOTE | 2017-11-30 13:03 | CDI ---
Last Revision, August 2017 Documentation Clarification Form Date: November 30, 2017 From: Sharlene Spain RN Admit Date: 11/25/2017 6:49:00 PM Patient Name: Leonardo Hurst Visit Number: [id number] ATTENTION: The Clinical Documentation Specialists (CDI) and [facility] Coding Staff appreciate your assistance in clarifying documentation. Please respond to the clarification below the line at the bottom and electronically sign. The CDI & [facility] Coding staff will review the response and follow-up if needed. Please note: Queries are made part of the Legal Health Record. If you have any questions, please contact the author of this message via ITS. Dr. Tess Regalado, Pneumonia was documented in your notes on: 11/25, 11/26, and In the H&P, History/Risk Factors: cad, chest pain, chf, copd , dm, hyperlipidemia, htn, mi, pneumonia, renal disease, sleep apnea Clinical Indicators: WBC on admission 9.6, on 11/26: 11.0 \X-ray: samll pleural effusion and atelectasis or pneumonia Treatment: Antibiotics: IV Azithromycin, IV Rocephin Breathing Tx: Albuterol, Duobeb In order to capture the severity of condition, please clarify if the condition signifies and you are treating for: Bacterial Pneumonia, specify causal organism (if known) Gram Negative Pneumonia Other bacteria (please specify) Viral Pneumonia, specify casual organism (if known) Ventilator Associated Pneumonia Healthcare Acquired Pneumonia/Pneumonia, unspecified Other, please specify Unable to determine Please continue to document in your progress notes , below the line and/or in the discharge summary in order to capture severity of illness and risk of mortality. Include clinical findings that support your diagnosis. MTDD
--- NOTE | 2017-11-30 13:45 | P.CONS ---
History of Present Illness - Chief Complaint Medical debility - History of Present Illness I had the op to see patient for inpatient rehab consultation with regard to medical debility. He was admitted to [facility] November 25 with hypoxia, pneumonia , syncope. Seen by Dr. Muñoz. Venous Doppler negative for DVT right and left and pulmonary perfusion low probability PE. Right ankle x-ray with swelling in the mid and hindfoot. Chest x-ray demonstrates persistent right basilar opacity as well as retrocardiac atelectasis. PT and OT ordered and did attempted evaluate patient yesterday but unable to due to lethargy. Previous functional history as elicited patient: 57-year-old right-handed male who is lives and 2 floor home with friend. He is retired and is on disability. Noted the patient can do some simple cooking otherwise independent with standing shower and gait with standard cane. Has a friend who helps with laundry as well as driving. Was a half a pack smoker and doesn't drink. Regular doctors Dr. ramon. Family history both parents with cancer. Review of Systems Review of systems: ENT: Denies sneezes or discharge. Eyes: Denies discharge or photophobia. Cardiac: Denies chest pain or palpitation. Pulmonary: Denies cough or shortness of breath. Gastrointestinal: Denies nausea, emesis, constipation, diarrhea. Genitourinary: Denies discharge or frequency. Musculoskeletal: Denies muscle or bone aches. Lower extremity edema as well as complaints of pain in right leg and foot. Neurologic: Perhaps mild generalized weakness. Endocrine: Denies shakes or sweats. Oncology: Denies cancers. Dermatologic: Denies rash, itching, pruritus. ALLERGY/immunology: Denies sneezes, rashes. Past Medical History Past Medical History: Coronary Artery Disease (CAD), Chest Pain / Angina, Heart Failure, COPD, Diabetes Mellitus, Hyperlipidemia, Hypertension, Myocardial Infarction (OH), Pneumonia, Renal Disease, Sleep Apnea/CPAP/BIPAP Additional Past Medical History / Comment(s): Low back pain, IDDM type II, diabetic neuropathy, gout, DOUG/CPap, home O2, ischemic cardiomyopathy, murmur, heart skips, Chronic kidney disease, Last Myocardial Infarction Date:: 2004 History of Any Multi-Drug Resistant Organisms: None Reported Past Surgical History: AICD, Heart Catheterization With Stent, Pacemaker Past Anesthesia/Blood Transfusion Reactions: No Reported Reaction Date of Last Stent Placement:: 2004 Type of Cardiac Device: Permanent Pacemaker, AICD Device Placement Date:: 09/2004 Past Psychological History: Bipolar Smoking Status: Former smoker Past Alcohol Use History: None Reported Additional Past Alcohol Use History / Comment(s): STARTED SMOKING AT AGE 19 SMOKED 1PPD THEN DECREASED TO 1 PACK EVERY 3 DAYS. Past Drug Use History: None Reported - Past Family History Father Family Medical History: Cancer Additional Family Medical History / Comment(s): Paternal grandfather with CAD Mother Family Medical History: Cancer Additional Family Medical History / Comment(s): Maternal grandmother had CAD. Mother had cancer. Medications and Allergies Home Medications Medication Instructions Recorded Confirmed Type Gabapentin [Neurontin] 300 mg PO DAILY 01/05/16 11/25/17 History amLODIPine [Norvasc] 10 mg PO DAILY 01/05/16 11/25/17 History hydrALAZINE HCL [Apresoline] 25 mg PO TID 01/05/16 11/25/17 History traZODone HCL [Desyrel] 200 mg PO HS 01/05/16 11/25/17 History Allopurinol [Zyloprim] 100 mg PO DAILY 05/21/17 11/25/17 History Escitalopram [Lexapro] 10 mg PO DAILY 05/21/17 11/25/17 History QUEtiapine [SEROquel] 200 mg PO HS 05/21/17 11/25/17 History cloNIDine HCL [Catapres] 0.2 mg PO TID 05/21/17 11/25/17 History Aspirin EC [Ecotrin Low Dose] 81 mg PO DAILY #100 tablet. 05/24/17 11/25/17 Rx Bumetanide [BUMEX] 4 mg PO BID #60 tab 05/24/17 11/25/17 Rx Insulin Aspart [NovoLOG Flexpen] 4 units SQ AC-TID #120 ml 06/12/17 11/25/17 Rx Insulin Glargine [Lantus] 20 unit SQ DAILY #600 vial 06/12/17 11/25/17 Rx Ipratropium-Albuterol Nebulize 3 ml INHALATION RT-QID PRN #120 neb 06/12/17 Rx [Duoneb 0.5 mg-3 mg/3 ml Soln] Albuterol Inhaler [Ventolin Hfa 2 puff INHALATION RT-QID PRN 11/25/17 11/25/17 History Inhaler] Fluticasone/Vilanterol [Breo 1 puff INHALATION RT-DAILY 11/25/17 11/25/17 History Ellipta 100-25 Mcg Inhaler] HYDROcodone/APAP 5-325MG [[place] 1 tab PO TID PRN 11/25/17 11/25/17 History 5-325] Ibuprofen [Motrin] 800 mg PO BID PRN 11/25/17 11/25/17 History Lisinopril [Zestril] 20 mg PO DAILY 11/25/17 11/25/17 History Pravastatin Sodium [Pravachol] 40 mg PO HS 11/25/17 11/25/17 History Pregabalin [Lyrica] 75 mg PO BID 11/25/17 11/25/17 History Allergies Allergy/AdvReac Type Severity Reaction Status Date / Time Penicillins Allergy Unknown Verified 11/25/17 16:42 Physical Exam Vitals: Vital Signs Temp Pulse Pulse Pulse Pulse Resp BP 11/30/17 11:45 92 11/30/17 11:37 88 11/30/17 11:04 63 18 11/30/17 11:03 97.0 F L 63 18 122/80 11/30/17 08:05 84 11/30/17 08:00 97.6 F 65 16 121/82 11/30/17 07:59 67 67 77 20 11/30/17 07:53 80 11/30/17 04:00 67 67 77 20 11/30/17 00:00 67 67 77 20 138/89 11/29/17 20:12 88 16 11/29/17 20:00 96 F L 84 73 67 77 16 137/92 11/29/17 16:00 97.6 F 67 67 77 20 138/70 Pulse Ox 11/30/17 11:45 11/30/17 11:37 11/30/17 11:04 11/30/17 11:03 95 11/30/17 08:05 11/30/17 08:00 96 11/30/17 07:59 11/30/17 07:53 11/30/17 04:00 11/30/17 00:00 95 11/29/17 20:12 11/29/17 20:00 94 L 11/29/17 16:00 96 Intake and Output 11/29/17 11/30/17 11/30/17 22:59 06:59 14:59 Intake Total 840 325 Output Total 2600 475 300 Balance -1760 -475 25 Intake: Oral 840 325 Output: Urine 2600 475 300 Other: Voiding Method Urinal Urinal Urinal # Voids 1 1 # Bowel Movements 0 Weight 131.5 kg Skin: Good color, texture, turgor. General: Overweight and muscular build and comfortable appearance. Head: Normocephalic, atraumatic. Eyes: Symmetric. Pupils equal round. Ears: Symmetric. Hearing within normal limits. Mouth: Clear. Neck: Supple. Carotid without bruit. Cardiac: Regular rate and rhythm. Lungs: Clear anteriorly and posteriorly. Abdomen: Soft active nontender. Extremities: Normal tone. Lower extremity edema. Neurological: Mental status: Alert, cooperative, pleasant. Cranial nerves: Symmetric facial tone and trapezius. Motor: Active movement all 4 limbs. Sensation: Intact throughout. DTRs: Symmetric and equal throughout. Mobility: Reports no transferring to bedside Elana chair as well as going to nearby bathroom on own. Results CBC & Chem 7: 11/30/17 05:34 11/30/17 05:34 Labs: Abnormal Lab Results - Last 24 Hours (Table) 11/29/17 11/29/17 11/30/17 Range/Units 15:32 20:37 05:34 RDW 16.2 H (11.5-15.5) % Plt Count 118 L (150-450) k/uL Chloride (98-107) mmol/L Carbon Dioxide (22-30) mmol/L BUN (9-20) mg/dL Creatinine (0.66-1.25) mg/dL Glucose (74-99) mg/dL POC Glucose (mg/dL) 126 H 120 H (75-99) mg/dL Phosphorus (2.5-4.5) mg/dL AST (17-59) U/L ALT (21-72) U/L Total Protein (6.3-8.2) g/dL Albumin (3.5-5.0) g/dL 11/30/17 11/30/17 11/30/17 Range/Units 05:34 06:12 11:44 RDW (11.5-15.5) % Plt Count (150-450) k/uL Chloride 95 L (98-107) mmol/L Carbon Dioxide 36 H (22-30) mmol/L BUN 41 H (9-20) mg/dL Creatinine 1.50 H (0.66-1.25) mg/dL Glucose 113 H (74-99) mg/dL POC Glucose (mg/dL) 100 H 128 H (75-99) mg/dL Phosphorus 4.7 H (2.5-4.5) mg/dL AST 63 H (17-59) U/L ALT 75 H (21-72) U/L Total Protein 5.7 L (6.3-8.2) g/dL Albumin 3.3 L (3.5-5.0) g/dL Chest x-ray: report reviewed (Followed for right basilar opacity and retrocardiac atelectasis.) Venous US: report reviewed (Negative for DVT right and left leg.) Assessment and Plan (1) Congestive heart failure (CHF) Current Visit: Yes Status: Acute Code(s): I50.9 - HEART FAILURE, UNSPECIFIED SNOMED Code(s): 31794262 Plan: Impression: 1. Medical debility. 2. Hypoxia. 3. Congestive heart failure. 4. Elevated CPK. 5. Coronary disease with history of angina and OH. 6. Hypertension. 7. Ischemia. 8. Diabetes. 9. COPD. 10. Chronic kidney disease. 11. Sleep apnea with BiPAP. Comments and plan: PT and OT ordered. Await their evaluations and treatment. Anticipate patient will do well over weekend. We'll review patient's progress over weekend, Sunday a.m., for possible rehab. At this time, anticipate patient will be ready for home with support services.
--- NOTE | 2017-11-30 13:53 | P.PN ---
Subjective Progress Note Date: 11/30/17 Principal diagnosis: Acute hypoxic respiratory failure of unclear etiology Progress note dated 11/27/2017 This a 57-year-old black male with a history of hypoxemic respiratory failure status changes my cardial infarction pneumonia acute kidney injury CAD angina pectoris heart failure COPD diabetes hyperlipidemia hypertension myocardial infarction sleep apnea syndrome. The patient currently is on the ventilator. The patient is on the assist control mode with a rate of 22 tidal volume 500 FiO2 of 60% and PEEP of 8. Arterial blood gases show a PaO2 of 77 a pCO2 45 and a pH of 7.49. The patient has a saline IV at 100 mL an hour propofol at 20 mics per kilogram per minute heparin via weightbase protocol and vital high protein at a rate of 36 with a goal of 36 mL/h. We will attempt a daily eruption of sedation a spontaneous breathing trial in the pre-PSV of a CPAP of 5. The patient may not be ready for weaning as yet. The patient's chest x-ray shows a minimal infiltrate/atelectasis at the left lung base. May relate to aspiration. Progress note dated 11/28/2017 57-year-old black male with history of hypoxemic respiratory failure, status post myocardial infarction pneumonia acute kidney injury CAD angina pectoris heart failure COPD diabetes hyperlipidemia hypertension myocardial infarction sleep apnea syndrome. The patient is not really sure what happened to him. He states he was lightheaded and dizzy. He fell to the floor. Apparently did not loose consciousness. We are thinking that maybe had a pulmonary embolism. Dopplers of lower extremities were negative. VQ scan was low probability. He also was complaining of pain in the right foot and ankle but x-rays were negative. I thought it might be gout in that joint but his uric acid was 8.1. He was extubated yesterday on November 27. He is on O2 at 4 L. At nighttime because of sleep apnea syndrome, he is on BiPAP at 10 and 5 and 40%. His only on a saline IV at 50 mL an hour. Progress note dated 11/29/2017 57-year-old white male with a history of hypoxemic respiratory failure, with a history of myocardial infarction pneumonia acute kidney injury CAD angina pectoris heart failure COPD diabetes hyperlipidemia hypertension myocardial infarction and sleep apnea syndrome. The patient apparently was lightheaded and dizzy home. Apparently fell to the floor without loss of consciousness. Initially they thought maybe had a pulmonary embolism but his VQ scan was essentially negative and her Dopplers were negative as well. His some pain in his right foot but x-rays were negative. We thought maybe he had an acute gouty episodes but uric acid was normal. He was extubated on November 27. He was moved out of the ICU yesterday. He is currently on O2 at 4 L. Doing relatively well. At nighttime, he's been using BiPAP at 10 and 5 and 40%. He' s had a basic IV. This note dated 11/30/2017 The patient is seen again today in follow-up in the selective care unit. He is awake and alert in no acute distress. He is resting quite comfortably in bed. He denies any worsening shortness of breath, cough or congestion. His right foot seems to be improving as well. He is working with physical therapy. He is maintaining good O2 saturations in the mid 90s on 4 L/m per nasal cannula. His been afebrile. Hemodynamically stable. He can culture reveals no growth. White count 7.5. Hemoglobin 15.8. Creatinine 1.50. Objective - Vital Signs Vital signs: Vital Signs Temp 97.0 F L 11/30/17 11:03 Pulse 92 11/30/17 11:45 Resp 18 11/30/17 11:04 BP 122/80 11/30/17 11:03 Pulse Ox 95 11/30/17 11:03 Intake & Output 11/29/17 11/30/17 11/30/17 18:59 06:59 18:59 Intake Total 1320 600 325 Output Total 3015 2475 300 Balance -5875 -1873 25 Weight 136 kg 131.5 kg Intake: Oral 1320 600 325 Output: Urine 3015 2475 300 Other: Voiding Method Urinal Urinal Urinal # Voids 1 1 1 # Bowel Movements 0 - Exam Morbidly obese. No acute distress. The patient is awake and alert. He is oriented 3. HEENT examination is grossly unremarkable. Mucous membranes are moist. . Neck supple. Full range of motion. No adenopathy thyromegaly or neck vein distention. Cardiovascular examination reveals regular rhythm rate. S1-S2 normal. No S3 or S4. No discernible murmur noted. Heart sounds are distant. Lungs reveal relatively clear breath sounds. A few scattered rhonchi. No wheezes or crackles. Abdomen soft bowel sounds are heard. No masses or tenderness. Extremities are intact. No cyanosis clubbing or edema. Skin is without rash or lesion. Neurologic examination is brief but nonfocal. - Labs CBC & Chem 7: 11/30/17 05:34 11/30/17 05:34 Labs: Abnormal Lab Results - Last 24 Hours (Table) 11/29/17 11/29/17 11/30/17 Range/Units 15:32 20:37 05:34 RDW 16.2 H (11.5-15.5) % Plt Count 118 L (150-450) k/uL Chloride (98-107) mmol/L Carbon Dioxide (22-30) mmol/L BUN (9-20) mg/dL Creatinine (0.66-1.25) mg/dL Glucose (74-99) mg/dL POC Glucose (mg/dL) 126 H 120 H (75-99) mg/dL Phosphorus (2.5-4.5) mg/dL AST (17-59) U/L ALT (21-72) U/L Total Protein (6.3-8.2) g/dL Albumin (3.5-5.0) g/dL 11/30/17 11/30/17 11/30/17 Range/Units 05:34 06:12 11:44 RDW (11.5-15.5) % Plt Count (150-450) k/uL Chloride 95 L (98-107) mmol/L Carbon Dioxide 36 H (22-30) mmol/L BUN 41 H (9-20) mg/dL Creatinine 1.50 H (0.66-1.25) mg/dL Glucose 113 H (74-99) mg/dL POC Glucose (mg/dL) 100 H 128 H (75-99) mg/dL Phosphorus 4.7 H (2.5-4.5) mg/dL AST 63 H (17-59) U/L ALT 75 H (21-72) U/L Total Protein 5.7 L (6.3-8.2) g/dL Albumin 3.3 L (3.5-5.0) g/dL Assessment and Plan Assessment: Assessment Hypoxemic respiratory failure of unclear etiology Mental status changes, rule out CVA History of myocardial infarction History of pneumonia Acute kidney injury Coronary artery disease Angina pectoris Heart failure COPD Diabetes mellitus Hyperlipidemia Hypertension Myocardial infarction Sleep apnea syndrome Possible aspiration pneumonia No evidence of DVT or pulmonary embolism And: The patient was seen and evaluated by Dr. Vtial. He is currently stable from the pulmonary standpoint. We'll continue with his current medications. We'll increase his activity as tolerated. We'll continue to follow make further recommendations based on his clinical status. I, the cosigning physician, performed a history & physical examination of the patient. Lungs sounds are clear anteriorly few crackles in the bilateral bases more so on the right. Maintaining good O2 saturations in the 90s on 2 L/m per nasal cannula. I discussed the assessment and plan of care with my nurse practitioner, Sil Land. I attest to the above note as dictated by her.
[2017-11-30] MEDS ORDERED: MORPHINE ORAL SOLN 10 MG/5 ML CUP PO PRN (14:41)
[2017-11-30 17:04] LABS: Glucose,Whole Blood 134 mg/dL (75-99)
--- NOTE | 2017-11-30 17:13 | P.CNOR ---
History of Present Illness - [facility] Consult date: 11/30/17 Consult reason: other (Right ankle injury) History of present illness: 57-year-old patient reports having a syncopal episode and injuring his right ankle. He had an old injury to his right ankle several years ago. He's had intermittent pain in that ankle for several years now. He has been ambulating with a walker per report some discomfort when he puts pressure on that ankle. He doesn't report any other current orthopedic complaints. Review of Systems Constitutional: Reports as per HPI Past Medical History Past Medical History: Coronary Artery Disease (CAD), Chest Pain / Angina, Heart Failure, COPD, Diabetes Mellitus, Hyperlipidemia, Hypertension, Myocardial Infarction (MT), Pneumonia, Renal Disease, Sleep Apnea/CPAP/BIPAP Additional Past Medical History / Comment(s): Low back pain, IDDM type II, diabetic neuropathy, gout, DOUG/CPap, home O2, ischemic cardiomyopathy, murmur, heart skips, Chronic kidney disease, Last Myocardial Infarction Date:: 2004 History of Any Multi-Drug Resistant Organisms: None Reported Past Surgical History: AICD, Heart Catheterization With Stent, Pacemaker Past Anesthesia/Blood Transfusion Reactions: No Reported Reaction Date of Last Stent Placement:: 2004 Type of Cardiac Device: Permanent Pacemaker, AICD Device Placement Date:: 09/2004 Past Psychological History: Bipolar Smoking Status: Former smoker Past Alcohol Use History: None Reported Additional Past Alcohol Use History / Comment(s): STARTED SMOKING AT AGE 19 SMOKED 1PPD THEN DECREASED TO 1 PACK EVERY 3 DAYS. Past Drug Use History: None Reported - Past Family History Father Family Medical History: Cancer Additional Family Medical History / Comment(s): Paternal grandfather with CAD Mother Family Medical History: Cancer Additional Family Medical History / Comment(s): Maternal grandmother had CAD. Mother had cancer. Medications and Allergies Home Medications Medication Instructions Recorded Confirmed Type Gabapentin [Neurontin] 300 mg PO DAILY 01/05/16 11/25/17 History amLODIPine [Norvasc] 10 mg PO DAILY 01/05/16 11/25/17 History hydrALAZINE HCL [Apresoline] 25 mg PO TID 01/05/16 11/25/17 History traZODone HCL [Desyrel] 200 mg PO HS 01/05/16 11/25/17 History Allopurinol [Zyloprim] 100 mg PO DAILY 05/21/17 11/25/17 History Escitalopram [Lexapro] 10 mg PO DAILY 05/21/17 11/25/17 History QUEtiapine [SEROquel] 200 mg PO HS 05/21/17 11/25/17 History cloNIDine HCL [Catapres] 0.2 mg PO TID 05/21/17 11/25/17 History Aspirin EC [Ecotrin Low Dose] 81 mg PO DAILY #100 tablet. 05/24/17 11/25/17 Rx Bumetanide [BUMEX] 4 mg PO BID #60 tab 05/24/17 11/25/17 Rx Insulin Aspart [NovoLOG Flexpen] 4 units SQ AC-TID #120 ml 06/12/17 11/25/17 Rx Insulin Glargine [Lantus] 20 unit SQ DAILY #600 vial 06/12/17 11/25/17 Rx Ipratropium-Albuterol Nebulize 3 ml INHALATION RT-QID PRN #120 neb 06/12/17 Rx [Duoneb 0.5 mg-3 mg/3 ml Soln] Albuterol Inhaler [Ventolin Hfa 2 puff INHALATION RT-QID PRN 11/25/17 11/25/17 History Inhaler] Fluticasone/Vilanterol [Breo 1 puff INHALATION RT-DAILY 11/25/17 11/25/17 History Ellipta 100-25 Mcg Inhaler] HYDROcodone/APAP 5-325MG [Surprise 1 tab PO TID PRN 11/25/17 11/25/17 History 5-325] Ibuprofen [Motrin] 800 mg PO BID PRN 11/25/17 11/25/17 History Lisinopril [Zestril] 20 mg PO DAILY 11/25/17 11/25/17 History Pravastatin Sodium [Pravachol] 40 mg PO HS 11/25/17 11/25/17 History Pregabalin [Lyrica] 75 mg PO BID 11/25/17 11/25/17 History Allergies Allergy/AdvReac Type Severity Reaction Status Date / Time Penicillins Allergy Unknown Verified 11/25/17 16:42 Physical Examination Osteopathic Statement: *. No significant issues noted on an osteopathic structural exam other than those noted in the History and Physical/Consult. Right lower extremity: There is painless logrolling of the right hip There is near full range of motion of the right knee. There is some mild tightness on the medial joint line with crepitance and range of motion there. Ligaments are stable. There is no intra-articular effusion present. Right ankle reveals some tenderness along the lateral ligament area. He does have +1/2 edema. He dorsiflexes ankle to neutral. He plantar flexes to 30. He is nontender along the anterior syndesmotic area. He has some mild tenderness along the medial side of the ankle. His Achilles is intact. He is able to move his toes without pain. He is nontender about the midfoot, hindfoot or forefoot. Results - Labs Labs: Abnormal Lab Results - Last 24 Hours (Table) 11/29/17 11/30/17 11/30/17 Range/Units 20:37 05:34 05:34 RDW 16.2 H (11.5-15.5) % Plt Count 118 L (150-450) k/uL Chloride 95 L (98-107) mmol/L Carbon Dioxide 36 H (22-30) mmol/L BUN 41 H (9-20) mg/dL Creatinine 1.50 H (0.66-1.25) mg/dL Glucose 113 H (74-99) mg/dL POC Glucose (mg/dL) 120 H (75-99) mg/dL Phosphorus 4.7 H (2.5-4.5) mg/dL AST 63 H (17-59) U/L ALT 75 H (21-72) U/L Total Protein 5.7 L (6.3-8.2) g/dL Albumin 3.3 L (3.5-5.0) g/dL 11/30/17 11/30/17 11/30/17 Range/Units 06:12 11:44 16:56 RDW (11.5-15.5) % Plt Count (150-450) k/uL Chloride (98-107) mmol/L Carbon Dioxide (22-30) mmol/L BUN (9-20) mg/dL Creatinine (0.66-1.25) mg/dL Glucose (74-99) mg/dL POC Glucose (mg/dL) 100 H 128 H 134 H (75-99) mg/dL Phosphorus (2.5-4.5) mg/dL AST (17-59) U/L ALT (21-72) U/L Total Protein (6.3-8.2) g/dL Albumin (3.5-5.0) g/dL H & H 11/25/17 11/26/17 11/27/17 Range/Units 16:09 06:16 03:42 Hgb 17.9 H 16.6 14.7 (13.0-17.5) gm/dL Hct 56.8 H 51.7 46.5 (39.0-53.0) % 11/28/17 11/29/17 11/30/17 Range/Units 04:12 05:55 05:34 Hgb 14.8 15.0 15.8 (13.0-17.5) gm/dL Hct 46.6 46.9 48.0 (39.0-53.0) % Coagulation 11/25/17 11/26/17 11/27/17 Range/Units 16:09 06:16 03:42 INR 1.1 1.1 1.1 (<1.2) Result Diagrams: 11/30/17 05:34 11/30/17 05:34 - Diagnostic results Ankle/Foot x-ray: report reviewed, image reviewed (There is some osteoarthritic changes noted of the ankle. No acute fracture is noted.) Assessment and Plan Assessment: 1. Right ankle lateral ligament sprain 2. Right ankle osteoarthritis 3. History of gout 4. Multiple medical comorbidities Plan: 1. We will obtain a fracture boot for the right ankle. 2. The patient may progress to weightbearing as tolerated while in the fracture boot with a walker 3. Ice and elevate for any pain or swelling 4. Physical therapy to assist with walker ambulation and gait training 5. Analgesics as needed Time with Patient: Less than 30
[2017-11-30] MEDS: cefTRIAXone IN SWFI 1,000 MG/10 ML SYRINGE IVP SCH (18:57)
[2017-11-30 20:57] LABS: Glucose,Whole Blood 135 mg/dL (75-99)
[2017-11-30] MEDS: AZITHROMYCIN 500 MG TAB PO SCH (23:15)
[2017-11-30] MEDS: QUEtiapine 200 MG TAB PO SCH (23:16)
[2017-11-30] MEDS: traZODone HCL 100 MG TAB PO SCH (23:16)
[2017-12-01] MEDS: cloNIDine HCL 0.2 MG TAB PO SCH ×2 (06:31→08:52)
[2017-12-01 06:44] LABS: Glucose,Whole Blood 107 mg/dL (75-99)
[2017-12-01 06:47] LABS: Basophils % (A) 0 %; Eosinophils # (A) 0.3 k/uL (0-0.7); Eosinophils % (A) 4 %; HCT 49.1 % (39.0-53.0); HGB 14.9 gm/dL (13.0-17.5); Hypochromasia Slight; Lymphocytes # (A) 1.7 k/uL (1.0-4.8); Lymphocytes % (A) 23 %; MCH 27.9 pg (25.0-35.0); MCHC 30.3 g/dL (31.0-37.0); MCV 92.3 fL (80.0-100.0); Mean Platelet Volume 10.6; Monocytes # (A) 0.9 k/uL (0-1.0); Monocytes % (A) 11 %; Neutrophils # (A) 4.5 k/uL (1.3-7.7); Neutrophils % (A) 59 %; Platelet Count 119 k/uL (150-450); RBC 5.33 m/uL (4.30-5.90); RDW 15.9 % (11.5-15.5); WBC 7.7 k/uL (3.8-10.6)
[2017-12-01 07:07] LABS: Albumin 3.2 g/dL (3.5-5.0); Calcium 8.7 mg/dL (8.4-10.2); Magnesium 2.2 mg/dL (1.6-2.3); Phosphorus 4.8 mg/dL (2.5-4.5); Potassium 4.1 mmol/L (3.5-5.1); Total Bilirubin 0.6 mg/dL (0.2-1.3); Total Protein 5.8 g/dL (6.3-8.2)
[2017-12-01] MEDS: IPRATROPIUM-ALBUTEROL 3 ML NEB INHALATION SCH ×2 (08:25→11:29)
--- NOTE | 2017-12-01 08:36 | P.PN ---
Subjective Patient is seen in follow-up for acute kidney injury and chronic disease. Patient has chronically disease stage III secondary to diabetic kidney disease and nephrosclerosis with baseline creatinine near 1.5. GFR is now at baseline. Currently resting in bed. Denies chest pain or shortness of breath. Admits to good urine output. Vital signs are stable. General: The patient appeared well nourished and normally developed. HEENT: Head exam is unremarkable. Neck is without jugular venous distension. LUNGS: Lungs are clear to auscultation and percussion. Breath sounds decreased. HEART: Rate and Rhythm are regular. First and second heart sounds normal. No murmurs, rubs or gallops. ABDOMEN: Abdominal exam reveals normal bowel sounds. Non-tender and non- distended. No evidence of peritonitis. EXTREMITITES: 1+ edema in the right lower extremity. No edema in the left lower extremity. Objective - Vital Signs Vital signs: Vital Signs Temp 96.6 F L 12/01/17 04:00 Pulse 78 12/01/17 08:26 Resp 18 12/01/17 04:00 BP 109/76 12/01/17 04:00 Pulse Ox 96 12/01/17 04:00 Intake & Output 11/30/17 12/01/17 12/01/17 18:59 06:59 18:59 Intake Total 505 236 Output Total 1200 550 Balance -695 -550 236 Weight 132 kg Intake: Oral 505 236 Output: Urine 1200 550 Other: Voiding Method Urinal Urinal # Voids 1 1 - Labs CBC & Chem 7: 12/01/17 05:55 12/01/17 05:55 Labs: Abnormal Lab Results - Last 24 Hours (Table) 11/30/17 11/30/17 11/30/17 Range/Units 11:44 16:56 20:50 MCHC (31.0-37.0) g/dL RDW (11.5-15.5) % Plt Count (150-450) k/uL Chloride (98-107) mmol/L Carbon Dioxide (22-30) mmol/L BUN (9-20) mg/dL Creatinine (0.66-1.25) mg/dL Glucose (74-99) mg/dL POC Glucose (mg/dL) 128 H 134 H 135 H (75-99) mg/dL Phosphorus (2.5-4.5) mg/dL Total Protein (6.3-8.2) g/dL Albumin (3.5-5.0) g/dL 12/01/17 12/01/17 12/01/17 Range/Units 05:55 05:55 06:42 MCHC 30.3 L (31.0-37.0) g/dL RDW 15.9 H (11.5-15.5) % Plt Count 119 L (150-450) k/uL Chloride 97 L (98-107) mmol/L Carbon Dioxide 38 H (22-30) mmol/L BUN 42 H (9-20) mg/dL Creatinine 1.56 H (0.66-1.25) mg/dL Glucose 108 H (74-99) mg/dL POC Glucose (mg/dL) 107 H (75-99) mg/dL Phosphorus 4.8 H (2.5-4.5) mg/dL Total Protein 5.8 L (6.3-8.2) g/dL Albumin 3.2 L (3.5-5.0) g/dL Assessment and Plan Plan: Assessment: #1. Nonoliguric acute kidney injury secondary to ischemic ATN secondary to hypotension. Resolved. #2. Chronic kidney disease stage III with baseline creatinine near 1.5 secondary to diabetic kidney disease and nephrosclerosis. #3. Systolic CHF with ejection fraction of 40-45%. Currently compensated. #4. Hypertension with chronic kidney disease. Controlled. #5. Diabetes mellitus. Plan: Plan for discharge home today. He is to follow-up as an outpatient in the next 2 weeks. Will recheck a UA and quantify proteinuria as an outpatient. Advised to avoid nephrotoxic agents including NSAIDs.
[2017-12-01] MEDS: INSULIN ASPART 100 UNIT/ML 1 ML 10 ML VIAL SQ SCH ×2 (08:50→11:54)
[2017-12-01] MEDS: METOPROLOL TARTRATE 25 MG TAB PO SCH (08:51)
[2017-12-01] MEDS: DOCUSATE 100 MG CAP PO SCH (08:51)
[2017-12-01] MEDS: ENOXAPARIN 40 MG/0.4 ML SYRINGE SQ SCH (08:51)
[2017-12-01] MEDS: BUMETANIDE 1 MG TAB PO SCH (08:51)
[2017-12-01] MEDS: ASPIRIN 325 MG TAB PO SCH (08:52)
[2017-12-01] MEDS: ALLOPURINOL 100 MG TAB PO SCH (08:52)
[2017-12-01] MEDS: GABAPENTIN 300 MG CAP PO SCH (08:52)
[2017-12-01] MEDS: ESCITALOPRAM 10 MG TAB PO SCH (08:52)
[2017-12-01] MEDS: hydrALAZINE HCL 50 MG TAB PO SCH (08:52)
[2017-12-01] MEDS: amLODIPine 10 MG TAB PO SCH (08:52)
[2017-12-01] MEDS: PANTOPRAZOLE 40 MG TABLET PO SCH (08:53)
[2017-12-01] MEDS: PREGABALIN 75 MG CAP PO SCH (08:56)
--- NOTE | 2017-12-01 11:07 | P.PN ---
Subjective Progress Note Date: 12/01/17 Principal diagnosis: Syncope This is a pleasant 57-year-old -[place] gentleman with history of coronary artery disease, prior PCI, prior FL, ischemic cardiomyopathy with prior AICD, chronic renal insufficiency, sleep apnea, hypertension, diabetes, COPD and hyperlipidemia. Presents to the hospital after experiencing a syncopal episode at home. VQ scan showed low probability for PE, venous duplex study was negative for DVT. Device was interrogated and showed one brief episode of nonsustained ventricular tachycardia, no ICD discharges. Upon examination, patient is resting comfortably in bed. He is awaiting discharge, waiting for a boot for his right foot. He denies any complaints of dizziness, lightheadedness, palpitations, chest discomfort, shortness of breath or further syncope. Laboratory values were reviewed and showed a hemoglobin of 14.9, potassium 4.1 and creatinine of 1.56. His vital signs have been stable. He's had no evidence of arrhythmias. Objective - Vital Signs Vital signs: Vital Signs Temp 97.5 F L 12/01/17 08:00 Pulse 82 12/01/17 08:37 Resp 20 12/01/17 08:00 BP 135/79 12/01/17 08:00 Pulse Ox 93 L 12/01/17 08:00 Intake & Output 11/30/17 12/01/17 12/01/17 18:59 06:59 18:59 Intake Total 505 476 Output Total 1200 550 Balance -695 -550 476 Weight 132 kg Intake: Oral 505 476 Output: Urine 1200 550 Other: Voiding Method Urinal Urinal Urinal # Voids 1 1 # Bowel Movements 1 - Exam PHYSICAL EXAMINATION: HEENT: Head is atraumatic, normocephalic. Pupils equal, round. Neck is supple. There is no elevated jugular venous pressure. HEART EXAMINATION: Heart sounds regular, S1 and S2 normal. No murmur or gallop heard. CHEST EXAMINATION: Lungs are clear to auscultation and precussion. No chest wall tenderness is noted on palpation or with deep breathing. ABDOMEN: Soft, nontender. Bowel sounds are heard. No organomegaly noted. EXTREMITIES: 1+ peripheral pulses with no evidence of peripheral edema and no calf tenderness noted. NEUROLOGIC patient is awake, alert and oriented x3. . - Labs CBC & Chem 7: 12/01/17 05:55 12/01/17 05:55 Labs: Abnormal Lab Results - Last 24 Hours (Table) 11/30/17 11/30/17 11/30/17 Range/Units 11:44 16:56 20:50 MCHC (31.0-37.0) g/dL RDW (11.5-15.5) % Plt Count (150-450) k/uL Chloride (98-107) mmol/L Carbon Dioxide (22-30) mmol/L BUN (9-20) mg/dL Creatinine (0.66-1.25) mg/dL Glucose (74-99) mg/dL POC Glucose (mg/dL) 128 H 134 H 135 H (75-99) mg/dL Phosphorus (2.5-4.5) mg/dL Total Protein (6.3-8.2) g/dL Albumin (3.5-5.0) g/dL 12/01/17 12/01/17 12/01/17 Range/Units 05:55 05:55 06:42 MCHC 30.3 L (31.0-37.0) g/dL RDW 15.9 H (11.5-15.5) % Plt Count 119 L (150-450) k/uL Chloride 97 L (98-107) mmol/L Carbon Dioxide 38 H (22-30) mmol/L BUN 42 H (9-20) mg/dL Creatinine 1.56 H (0.66-1.25) mg/dL Glucose 108 H (74-99) mg/dL POC Glucose (mg/dL) 107 H (75-99) mg/dL Phosphorus 4.8 H (2.5-4.5) mg/dL Total Protein 5.8 L (6.3-8.2) g/dL Albumin 3.2 L (3.5-5.0) g/dL Assessment and Plan Assessment: #1 syncope #2 mild abnormality in troponin, likely secondary to supply demand mismatch #3 known history of CAD with prior FL and prior PCI #4 ischemic cardiomyopathy with prior AICD implantation, device interrogation shows normal functioning device with no ICD discharges and one brief episode of nonsustained ventricular tachycardia #5 hypertension #6 hyperlipidemia #7 diabetes #8 sleep apnea #9 possible aspiration pneumonia 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 Patient is stable for discharge home he will follow-up with Dr. Lerner as an outpatient. The above dictated assessment and findings were discussed with signing physician. The impression and plan of care have been directed as dictated. Kylee Kuo, Nurse Practitioner, acting as scribe for signing physician.
[2017-12-01 11:31] VITALS: PULSE 85
[2017-12-01 11:38] VITALS: BP 136/84; RESP 18; TEMP 97.7
[2017-12-01 11:53] LABS: Glucose,Whole Blood 121 mg/dL (75-99)
--- NOTE | 2017-12-01 13:05 | P.PN ---
Subjective Progress Note Date: 12/01/17 Principal diagnosis: Acute hypoxic respiratory failure of unclear etiology Progress note dated 11/27/2017 This a 57-year-old black male with a history of hypoxemic respiratory failure status changes my cardial infarction pneumonia acute kidney injury CAD angina pectoris heart failure COPD diabetes hyperlipidemia hypertension myocardial infarction sleep apnea syndrome. The patient currently is on the ventilator. The patient is on the assist control mode with a rate of 22 tidal volume 500 FiO2 of 60% and PEEP of 8. Arterial blood gases show a PaO2 of 77 a pCO2 45 and a pH of 7.49. The patient has a saline IV at 100 mL an hour propofol at 20 mics per kilogram per minute heparin via weightbase protocol and vital high protein at a rate of 36 with a goal of 36 mL/h. We will attempt a daily eruption of sedation a spontaneous breathing trial in the pre-PSV of a CPAP of 5. The patient may not be ready for weaning as yet. The patient's chest x-ray shows a minimal infiltrate/atelectasis at the left lung base. May relate to aspiration. Progress note dated 11/28/2017 57-year-old black male with history of hypoxemic respiratory failure, status post myocardial infarction pneumonia acute kidney injury CAD angina pectoris heart failure COPD diabetes hyperlipidemia hypertension myocardial infarction sleep apnea syndrome. The patient is not really sure what happened to him. He states he was lightheaded and dizzy. He fell to the floor. Apparently did not loose consciousness. We are thinking that maybe had a pulmonary embolism. Dopplers of lower extremities were negative. VQ scan was low probability. He also was complaining of pain in the right foot and ankle but x-rays were negative. I thought it might be gout in that joint but his uric acid was 8.1. He was extubated yesterday on November 27. He is on O2 at 4 L. At nighttime because of sleep apnea syndrome, he is on BiPAP at 10 and 5 and 40%. His only on a saline IV at 50 mL an hour. Progress note dated 11/29/2017 57-year-old white male with a history of hypoxemic respiratory failure, with a history of myocardial infarction pneumonia acute kidney injury CAD angina pectoris heart failure COPD diabetes hyperlipidemia hypertension myocardial infarction and sleep apnea syndrome. The patient apparently was lightheaded and dizzy home. Apparently fell to the floor without loss of consciousness. Initially they thought maybe had a pulmonary embolism but his VQ scan was essentially negative and her Dopplers were negative as well. His some pain in his right foot but x-rays were negative. We thought maybe he had an acute gouty episodes but uric acid was normal. He was extubated on November 27. He was moved out of the ICU yesterday. He is currently on O2 at 4 L. Doing relatively well. At nighttime, he's been using BiPAP at 10 and 5 and 40%. He' s had a basic IV. Progress note dated 11/30/2017 The patient is seen again today in follow-up in the selective care unit. He is awake and alert in no acute distress. He is resting quite comfortably in bed. He denies any worsening shortness of breath, cough or congestion. His right foot seems to be improving as well. He is working with physical therapy. He is maintaining good O2 saturations in the mid 90s on 4 L/m per nasal cannula. His been afebrile. Hemodynamically stable. He can culture reveals no growth. White count 7.5. Hemoglobin 15.8. Creatinine 1.50. Progress note dated 12/01/2017 The patient is seen again today in follow-up on the selective care unit. He is awake and alert in no acute distress. He is maintaining good O2 saturations in the 90s on 3 L/m per nasal cannula. He's been afebrile. Hemodynamically stable. Sputum culture revealed no growth. White count 7.7. Hemoglobin 14.9. Platelet count 119,000. Bicarbonate 38. Creatinine 1.56. He has been seen and evaluated by orthopedics. The plan is for a boot for the right ankle. Objective - Vital Signs Vital signs: Vital Signs Temp 97.7 F 12/01/17 11:37 Pulse 85 12/01/17 11:38 Resp 18 12/01/17 11:38 BP 136/84 12/01/17 11:37 Pulse Ox 92 L 12/01/17 11:37 Intake & Output 11/30/17 12/01/17 12/01/17 18:59 06:59 18:59 Intake Total 505 476 Output Total 1200 550 Balance -695 -550 476 Weight 132 kg Intake: Oral 505 476 Output: Urine 1200 550 Other: Voiding Method Urinal Urinal Urinal # Voids 1 1 # Bowel Movements 1 - Exam Morbidly obese. No acute distress. The patient is awake and alert. He is oriented 3. HEENT examination is grossly unremarkable. Mucous membranes are moist. . Neck supple. Full range of motion. No adenopathy thyromegaly or neck vein distention. Cardiovascular examination reveals regular rhythm rate. S1-S2 normal. No S3 or S4. No discernible murmur noted. Heart sounds are distant. Lungs reveal relatively clear breath sounds. A few scattered rhonchi. No wheezes or crackles. Abdomen soft bowel sounds are heard. No masses or tenderness. Extremities are intact. No cyanosis clubbing. Some ecchymosis and edema of the right ankle. Skin is without rash or lesion. Neurologic examination is brief but nonfocal. - Labs CBC & Chem 7: 12/01/17 05:55 12/01/17 05:55 Labs: Abnormal Lab Results - Last 24 Hours (Table) 11/30/17 11/30/17 12/01/17 Range/Units 16:56 20:50 05:55 MCHC 30.3 L (31.0-37.0) g/dL RDW 15.9 H (11.5-15.5) % Plt Count 119 L (150-450) k/uL Chloride (98-107) mmol/L Carbon Dioxide (22-30) mmol/L BUN (9-20) mg/dL Creatinine (0.66-1.25) mg/dL Glucose (74-99) mg/dL POC Glucose (mg/dL) 134 H 135 H (75-99) mg/dL Phosphorus (2.5-4.5) mg/dL Total Protein (6.3-8.2) g/dL Albumin (3.5-5.0) g/dL 12/01/17 12/01/17 12/01/17 Range/Units 05:55 06:42 11:52 MCHC (31.0-37.0) g/dL RDW (11.5-15.5) % Plt Count (150-450) k/uL Chloride 97 L (98-107) mmol/L Carbon Dioxide 38 H (22-30) mmol/L BUN 42 H (9-20) mg/dL Creatinine 1.56 H (0.66-1.25) mg/dL Glucose 108 H (74-99) mg/dL POC Glucose (mg/dL) 107 H 121 H (75-99) mg/dL Phosphorus 4.8 H (2.5-4.5) mg/dL Total Protein 5.8 L (6.3-8.2) g/dL Albumin 3.2 L (3.5-5.0) g/dL Assessment and Plan Assessment: Assessment Hypoxemic respiratory failure of unclear etiology, suspect aspiration due to fall. Mental status changes, rule out CVA History of myocardial infarction History of pneumonia Acute kidney injury Coronary artery disease Angina pectoris Heart failure COPD Diabetes mellitus Hyperlipidemia Hypertension Myocardial infarction Sleep apnea syndrome Possible aspiration pneumonia No evidence of DVT or pulmonary embolism And: The patient was seen and evaluated by Dr. Vital. He is currently stable from the pulmonary standpoint. He could be discharged home. Evaluate for possible home oxygen. We'll continue with his current medications. He could follow-up in our office in 1-2 weeks' time. We'll repeat a chest x-ray done. I, the cosigning physician, performed a history & physical examination of the patient. Lungs sounds are clear anteriorly few crackles in the bilateral bases more so on the right. Maintaining good O2 saturations in the 90s on 3 L/m per nasal cannula. I discussed the assessment and plan of care with my nurse practitioner, Sil Land. I attest to the above note as dictated by her.
--- NOTE | 2017-12-01 14:03 | P.DS ---
Providers Date of admission: 11/25/17 18:49 Expected date of discharge: 12/01/17 Attending physician: Tess Regalado Consults: 11/25/17 18:36 Consult Physician Stat Consulting Provider: Sylvia Gan Consult Reason/Comments: Respiratory failure Do you want consulting provider notified?: Yes Consult Physician Stat Consulting Provider: Sushila Flores Consult Reason/Comments: renal failure Do you want consulting provider notified?: Yes Consult Physician Urgent Consulting Provider: Anh Ojeda Consult Reason/Comments: Myocardial infarction Do you want consulting provider notified?: Yes 11/26/17 10:42 Consult Physician Routine Consulting Provider: Jennifer Sosa Consult Reason/Comments: R leg weakness Do you want consulting provider notified?: Yes 11/30/17 10:36 Consult Physician Routine Consulting Provider: Jorje Grayson Consult Reason/Comments: physical debility Do you want consulting provider notified?: Yes 11/30/17 14:14 Consult Physician Routine Consulting Provider: Rock Null Consult Reason/Comments: (R) ankle injury Do you want consulting provider notified?: Yes Primary care physician: [facility] Course: Diagnoses on discharge: #1 episode of syncope #2 acute hypoxic respiratory failure, requiring intubation and mechanical ventilation, now patient has been extubated this morning and is tolerating well #3 retrocardiac infiltrate on chest x-ray suggestive of pneumonia started on IV antibiotics #4 elevated d-dimer, patient was started on IV heparin, awaiting further testing #5 slight elevation in troponin level cardiology consult is requested patient is maintained on IV heparin #6 rhabdomyolysis maintained on IV fluid Will monitor kidney function #7 acute renal failure continue with IV fluid monitor kidney function #8 COPD exacerbation maintained on IV Solu-Medrol and inhaled bronchodilators #9 underlying history of diabetes mellitus maintained on insulin sliding scale #10 underlying history of cardiomyopathy, patient has history of AICD placement #11 underlying history of coronary artery disease with myocardial infarction in the past with history of cardiac catheterization and stent placement #12 underlying history of sleep apnea #13 underlying history of hypertension #14 underlying history of hyperlipidemia #15 lack of movement in the right lower extremity spontaneously and in response to stimuli, neurology consultation was requested, echocardiogram reveals evidence of depressed ejection fraction to 40-45% carotid Doppler did not reveal any significant stenosis, it's not clear whether lack of movement in the right lower extremity is related to pain. #16 right ankle and foot swelling, likely acute gout. Uric acid is 8.1 which is in high normal range, patient is on Zyloprim 100 mg daily, we are unable to use anti-inflammatory medication due to kidney function, Patient given 2 doses of IV Solumedrol with improvement of pain and swelling #17 Elevated liver enzymes today, will hold Pravachol and monitor liver enzymes Hospital course: Leonardo Hurst is a 57-year-old male who was brought to [facility] ED after having an episode of syncope, patient was evaluated in emergency room and was found to be hypoxemic he was started on high flow oxygen and then on BiPAP without significant improvement he was intubated in the emergency room and started on mechanical ventilation and was admitted to intensive care unit, pulmonary critical care consultation was requested. In the emergency room patient had an elevated d-dimer, and slight elevation in troponin level, he was started on IV heparin, computed tomography scan of the brain did not reveal any acute abnormality. Patient was also found to have elevated CPK level suggestive of rhabdomyolysis, and elevated BUN and creatinine. Currently patient is admitted to intensive care unit he is intubated sedated maintained on mechanical ventilation, his chest x-ray was suggestive of pneumonia he was started on IV antibiotics, he is maintained on IV heparin and IV Solu-Medrol. CT angiogram of the chest was not done due to elevated creatinine, cardiology consultation was requested due to elevated troponin levels, echocardiogram was ordered. Patient was noticed by ICU nurse to be moving all his extremities except the right lower extremity, reviewed there is no history of stroke or any history suggestive of previous weakness or analysis in the right lower extremity, neurology consultation was requested carotid Doppler was ordered and repeat computed tomography scan will be set for tomorrow morning. Patient was very confused on presentation to emergency room, toxicology screen was not done in the emergency room, will order a urine tox screen at this time which will be of limited value due to multiple medication that he has received already. On 11/27/2017 patient was extubated this morning he is alert, responsive in no apparent distress, he states that he fell couple of times at home he was on the floor 1-2 hours before a friend of his came in and called EMS, right lower extremity still has significant weakness, computed tomography scan of the brain done on admission as well as repeat computed tomography scan of the brain done on 11/26/2017 did not reveal any significant abnormality. Echocardiogram was done and revealed ejection fraction of 40-45%, carotid Doppler was done and revealed no significant stenosis. On 11/28/2017 patient is alert and oriented 3 in no apparent distress he is complaining of right foot and ankle pain otherwise he denies any complaints, there is no shortness of breath at rest patient is maintained on oxygen 4 L nasal cannula, patient has occasional cough he denies any chest pain there is no fever or chills no headache no dizziness no nausea or vomiting no abdominal pain no diarrhea and no urinary symptoms. On 11/29/2017 patient is alert and oriented resting comfortably in bed he is complaining of right foot and ankle pain otherwise he denies any complaints, there is no shortness of breath no chest pain patient has occasional cough, there is no fever or chills no headache no dizziness no nausea or vomiting no abdominal pain no diarrhea and no urinary symptoms. On 11/30/2017 patient is alert and oriented x3, he is complaining of right foot and ankle pain, also complaining of constipation. otherwise he denies any complaints, there is no shortness of breath and no chest pain. patient has occasional cough, there is no fever or chills no headache no dizziness no nausea or vomiting no abdominal pain no diarrhea and no no burning was urination no frequency or urgency no hematuria. Patient Condition at Discharge: Good Plan - Discharge Summary Discharge Rx Participant: Yes New Discharge Prescriptions: New hydrALAZINE HCL [Apresoline] 50 mg PO TID tab Metoprolol Tartrate [Lopressor] 25 mg PO BID tab Continue traZODone HCL [Desyrel] 200 mg PO HS amLODIPine [Norvasc] 10 mg PO DAILY Gabapentin [Neurontin] 300 mg PO DAILY Allopurinol [Zyloprim] 100 mg PO DAILY cloNIDine HCL [Catapres] 0.2 mg PO TID QUEtiapine [SEROquel] 200 mg PO HS Escitalopram [Lexapro] 10 mg PO DAILY Aspirin EC [Ecotrin Low Dose] 81 mg PO DAILY #100 tablet.dr Moreirametanide [BUMEX] 4 mg PO BID #60 tab Insulin Aspart [NovoLOG Flexpen] 4 units SQ AC-TID #120 ml Insulin Glargine [Lantus] 20 unit SQ DAILY #600 vial Ipratropium-Albuterol Nebulize [Duoneb 0.5 mg-3 mg/3 ml Soln] 3 ml INHALATION RT-QID PRN #120 neb PRN Reason: Shortness Of Breath Or Wheezing HYDROcodone/APAP 5-325MG [[place] 5-325] 1 tab PO TID PRN PRN Reason: Pain Pregabalin [Lyrica] 75 mg PO BID Fluticasone/Vilanterol [Breo Ellipta 100-25 Mcg Inhaler] 1 puff INHALATION RT -DAILY Albuterol Inhaler [Ventolin Hfa Inhaler] 2 puff INHALATION RT-QID PRN PRN Reason: Shortness Of Breath Ibuprofen [Motrin] 800 mg PO BID PRN PRN Reason: Pain Discontinued hydrALAZINE HCL [Apresoline] 25 mg PO TID Pravastatin Sodium [Pravachol] 40 mg PO HS Lisinopril [Zestril] 20 mg PO DAILY Discharge Medication List Gabapentin [Neurontin] 300 mg PO DAILY 01/05/16 [History] amLODIPine [Norvasc] 10 mg PO DAILY 01/05/16 [History] traZODone HCL [Desyrel] 200 mg PO HS 01/05/16 [History] Allopurinol [Zyloprim] 100 mg PO DAILY 05/21/17 [History] Escitalopram [Lexapro] 10 mg PO DAILY 05/21/17 [History] QUEtiapine [SEROquel] 200 mg PO HS 05/21/17 [History] cloNIDine HCL [Catapres] 0.2 mg PO TID 05/21/17 [History] Aspirin EC [Ecotrin Low Dose] 81 mg PO DAILY #100 tablet. 05/24/17 [Rx] Bumetanide [BUMEX] 4 mg PO BID #60 tab 05/24/17 [Rx] Insulin Aspart [NovoLOG Flexpen] 4 units SQ AC-TID #120 ml 06/12/17 [Rx] Insulin Glargine [Lantus] 20 unit SQ DAILY #600 vial 06/12/17 [Rx] Ipratropium-Albuterol Nebulize [Duoneb 0.5 mg-3 mg/3 ml Soln] 3 ml INHALATION RT -QID PRN #120 neb 06/12/17 [Rx] Albuterol Inhaler [Ventolin Hfa Inhaler] 2 puff INHALATION RT-QID PRN 11/25/17 [ History] Fluticasone/Vilanterol [Breo Ellipta 100-25 Mcg Inhaler] 1 puff INHALATION RT- DAILY 11/25/17 [History] HYDROcodone/APAP 5-325MG [[place] 5-325] 1 tab PO TID PRN 11/25/17 [History] Ibuprofen [Motrin] 800 mg PO BID PRN 11/25/17 [History] Pregabalin [Lyrica] 75 mg PO BID 11/25/17 [History] Metoprolol Tartrate [Lopressor] 25 mg PO BID tab 12/01/17 [Rx] hydrALAZINE HCL [Apresoline] 50 mg PO TID tab 12/01/17 [Rx] Follow up Appointment(s)/Referral(s): Sushila Flores MD [STAFF PHYSICIAN] - 1 Week (Offices are closed at this time. I am unable to make a follow up appointment. Please call to make a follow up appointment.) Alfred Vital DO [Doctor of Osteopathic Medicine] - 1 Week (Offices are closed at this time. I am unable to make a follow up appointment. Please call to make a follow up appointment.) Tess Regalado MD [Primary Care Provider] - 12/03/17 2:45 pm Ming Lerner MD [STAFF PHYSICIAN] - 2 Weeks (Offices are closed at this time. I am unable to make a follow up appointment. Please call to make a follow up appointment.) Patient Instructions/Handouts: Chest Pain (DC), Ankle Sprain (DC), Heart Healthy Diet (DC), Hypertension (DC) Activity/Diet/Wound Care/Special Instructions: Needs 30 day event monitor. 2081 at 0800 [employer] to supply boot [employer] [phone]
--- NOTE | 2017-12-04 07:43 | CDI ---
Last Revision, August 2017 Documentation Clarification Form Date: December 04, 2017 From: Sharlene Spain Admit Date: 11/25/2017 6:49:00 PM Patient Name: Leonardo Hurst Visit Number: [id number] Discharge Date: 12/01/2017 ATTENTION: The Clinical Documentation Specialists (CDI) and [facility] Coding Staff appreciate your assistance in clarifying documentation. Please respond to the clarification below the line at the bottom and electronically sign. The CDI & [facility] Coding staff will review the response and follow-up if needed. Please note: Queries are made part of the Legal Health Record. If you have any questions, please contact the author of this message via ITS. Dr. Tess Regalado, Third request History/Risk Factors:. cad, chest pain, chf, copd , dm, hyperlipidemia, htn, mi, pneumonia, renal disease, sleep apnea Clinical Indicators: VS/Pulse OX: on admission 91% on aerosol mask Chest X Ray: pulmonary edema likely on the basis of decompensated heart failure Treatment: Nasal Cannula, IV Lasix In your professional opinion, can you please clarify the acuity and type of CHF if known? Systolic Heart Failure: Acute Chronic Acute on Chronic Diastolic Heart Failure: Acute Chronic Acute on Chronic Systolic & Diastolic Heart Failure: Acute Chronic Acute on Chronic Heart Failure Unable to Determine Other, please specify Tomasz continue to document in your progress notes, Under line below and/or in the discharge summary in order to capture severity of illness and risk of mortality. Include clinical findings that support your diagnosis. MTDD
--- NOTE | 2017-12-04 07:46 | CDI ---
Last Revision, August 2017 Documentation Clarification Form Date: December 04, 2017 From: Sharlene Spain Admit Date: 11/25/2017 6:49:00 PM Patient Name: Leonardo Hurst Visit Number: [id number] Discharge Date: 12/01/2017 ATTENTION: The Clinical Documentation Specialists (CDI) and [facility] Coding Staff appreciate your assistance in clarifying documentation. Please respond to the clarification below the line at the bottom and electronically sign. The CDI & [facility] Coding staff will review the response and follow-up if needed. Please note: Queries are made part of the Legal Health Record. If you have any questions, please contact the author of this message via ITS. Dr. Tess Regalado, Pneumonia was documented in your notes on: 11/25, 11/26, and In the H&P, History/Risk Factors: cad, chest pain, chf, copd , dm, hyperlipidemia, htn, mi, pneumonia, renal disease, sleep apnea Clinical Indicators: WBC on admission 9.6, on 11/26: 11.0 \X-ray: samll pleural effusion and atelectasis or pneumonia Treatment: Antibiotics: IV Azithromycin, IV Rocephin Breathing Tx: Albuterol, Duobeb In order to capture the severity of condition, please clarify if the condition signifies and you are treating for: Bacterial Pneumonia, specify causal organism (if known) Gram Negative Pneumonia Other bacteria (please specify) Viral Pneumonia, specify casual organism (if known) Ventilator Associated Pneumonia Healthcare Acquired Pneumonia/Pneumonia, unspecified Other, please specify Unable to determine Please continue to document in your progress notes, under the line below and/or in the discharge summary in order to capture severity of illness and risk of mortality. Include clinical findings that support your diagnosis. MTDD
== END 2017-12-01 14:54 | disposition home or self-care (01) | DRG 208 ==
LOC: EC 15:52 → 6ICU 18:49 → 6SEL 11-28 09:58
PROVIDERS: ADMIT Internal Medicine; ATTEND Internal Medicine
PROC: 0BH17EZ Insertion of Endotracheal Airway into Trachea, Via Natural or Artificial Opening (ICD-10-PCS; principal; 2017-11-25)
PROC: 5A1945Z Respiratory Ventilation, 24-96 Consecutive Hours (ICD-10-PCS; 2017-11-25)
PROC: 4B02XTZ Measurement of Cardiac Defibrillator, External Approach (ICD-10-PCS; 2017-11-28)
DX: J96.01 Acute respiratory failure with hypoxia (principal); N17.0 Acute kidney failure with tubular necrosis; J69.0 Pneumonitis due to inhalation of food and vomit; I47.2 Ventricular tachycardia; G93.40 Encephalopathy, unspecified; I95.9 Hypotension, unspecified; E66.01 Morbid (severe) obesity due to excess calories; M62.82 Rhabdomyolysis; I13.0 Hypertensive heart and chronic kidney disease with heart failure and stage 1 through stage 4 chronic kidney disease, or unspecified chronic kidney disease; J44.0 Chronic obstructive pulmonary disease with (acute) lower respiratory infection; J44.1 Chronic obstructive pulmonary disease with (acute) exacerbation; I50.22 Chronic systolic (congestive) heart failure; N18.3 Chronic kidney disease, stage 3 (moderate); E11.21 Type 2 diabetes mellitus with diabetic nephropathy; E11.42 Type 2 diabetes mellitus with diabetic polyneuropathy; E11.22 Type 2 diabetes mellitus with diabetic chronic kidney disease; R79.1 Abnormal coagulation profile; F31.9 Bipolar disorder, unspecified; E78.5 Hyperlipidemia, unspecified; G47.33 Obstructive sleep apnea (adult) (pediatric); M10.9 Gout, unspecified; I25.5 Ischemic cardiomyopathy; K21.9 Gastro-esophageal reflux disease without esophagitis; R01.1 Cardiac murmur, unspecified; Z68.37 Body mass index [BMI] 37.0-37.9, adult; M19.071 Primary osteoarthritis, right ankle and foot; S93.491A Sprain of other ligament of right ankle, initial encounter; G89.29 Other chronic pain; W18.30XA Fall on same level, unspecified, initial encounter; K59.00 Constipation, unspecified; I25.119 Atherosclerotic heart disease of native coronary artery with unspecified angina pectoris; I25.2 Old myocardial infarction; Z79.4 Long term (current) use of insulin; Z95.810 Presence of automatic (implantable) cardiac defibrillator; Z79.899 Other long term (current) drug therapy; Z82.49 Family history of ischemic heart disease and other diseases of the circulatory system; Z80.9 Family history of malignant neoplasm, unspecified; Z95.5 Presence of coronary angioplasty implant and graft; Z88.0 Allergy status to penicillin; Z79.891 Long term (current) use of opiate analgesic; Z79.1 Long term (current) use of non-steroidal anti-inflammatories (NSAID); Z79.82 Long term (current) use of aspirin; Z87.891 Personal history of nicotine dependence; Z99.81 Dependence on supplemental oxygen; Z87.01 Personal history of pneumonia (recurrent)
CPT/HCPCS: 31500; 36415; 36600; 51702; 70450; 71045; 72125; 78582; 80048; 80053; 80061; 80306; 81001; 82550; 82553; 82805; 83036; 83090; 83735; 84100; 84484; 84550; 85025; 85379; 85610; 85730; 87070; 87205; 93005; 93306; 93880; 93970; 94002; 94003; 94640; 94660; 95819; 96365; 96366; 96375; 96376; 99291

== ENCOUNTER 2017-12-06 23:31 | Inpatient (IN) | payer MEDICARE, OTHER ==
[2017-12-06 23:52] LABS: Glucose,Whole Blood 137 mg/dL (75-99)
[2017-12-07] MEDS ORDERED: RX INFO: IV CONTRAST WAS GIVEN 1 EACH MISC MISCELLANE PRN (00:06)
[2017-12-07] MEDS ORDERED: SODIUM CHLORIDE 0.9% 1,000 ML IV STA (00:06)
[2017-12-07] MEDS ORDERED: METOCLOPRAMIDE 5 MG/ML 2 ML VIAL IVP STA (00:06)
--- NOTE | 2017-12-07 00:09 | ED ---
General Adult HPI - General Chief complaint: Neuro Symptoms/Deficit Stated complaint: MOBILITY ISSUES Time Seen by Provider: 12/06/17 23:33 Source: patient, RN notes reviewed Mode of arrival: EMS Limitations: physical limitation - History of Present Illness Initial comments: Patient is a pleasant 57-year-old male presenting to the emergency Department with balance issues. Patient states he feels dizzy and off balance. Patient reportedly has had recent falls frequently. Symptoms have been occurring for a couple of weeks however much worse today. Patient denies any confusion or isolated area of weakness. Patient is a poor historian. - Related Data Home Medications Medication Instructions Recorded Confirmed Gabapentin [Neurontin] 300 mg PO DAILY 01/05/16 11/25/17 amLODIPine [Norvasc] 10 mg PO DAILY 01/05/16 11/25/17 traZODone HCL [Desyrel] 200 mg PO HS 01/05/16 11/25/17 Allopurinol [Zyloprim] 100 mg PO DAILY 05/21/17 11/25/17 Escitalopram [Lexapro] 10 mg PO DAILY 05/21/17 11/25/17 QUEtiapine [SEROquel] 200 mg PO HS 05/21/17 11/25/17 cloNIDine HCL [Catapres] 0.2 mg PO TID 05/21/17 11/25/17 Albuterol Inhaler [Ventolin Hfa 2 puff INHALATION RT-QID PRN 11/25/17 11/25/17 Inhaler] Fluticasone/Vilanterol [Breo 1 puff INHALATION RT-DAILY 11/25/17 11/25/17 Ellipta 100-25 Mcg Inhaler] HYDROcodone/APAP 5-325MG [[place] 1 tab PO TID PRN 11/25/17 11/25/17 5-325] Ibuprofen [Motrin] 800 mg PO BID PRN 11/25/17 11/25/17 Pregabalin [Lyrica] 75 mg PO BID 11/25/17 11/25/17 Previous Rx's Medication Instructions Recorded Aspirin EC [Ecotrin Low Dose] 81 mg PO DAILY #100 tablet. 05/24/17 Bumetanide [BUMEX] 4 mg PO BID #60 tab 05/24/17 Insulin Aspart [NovoLOG Flexpen] 4 units SQ AC-TID #120 ml 06/12/17 Insulin Glargine [Lantus] 20 unit SQ DAILY #600 vial 06/12/17 Ipratropium-Albuterol Nebulize 3 ml INHALATION RT-QID PRN #120 neb 06/12/17 [Duoneb 0.5 mg-3 mg/3 ml Soln] Metoprolol Tartrate [Lopressor] 25 mg PO BID tab 12/01/17 hydrALAZINE HCL [Apresoline] 50 mg PO TID tab 12/01/17 Allergies Allergy/AdvReac Type Severity Reaction Status Date / Time Penicillins Allergy Unknown Verified 12/06/17 23:44 Review of Systems ROS Statement: Those systems with pertinent positive or pertinent negative responses have been documented in the HPI. ROS Other: All systems not noted in ROS Statement are negative. Constitutional: Denies: fever Eyes: Denies: eye pain ENT: Denies: ear pain Respiratory: Denies: cough Cardiovascular: Denies: chest pain Endocrine: Denies: fatigue Gastrointestinal: Denies: abdominal pain Genitourinary: Denies: dysuria Musculoskeletal: Denies: back pain Skin: Denies: rash Neurological: Reports: abnormal gait. Denies: headache, weakness, confusion Past Medical History Past Medical History: Coronary Artery Disease (CAD), Chest Pain / Angina, Heart Failure, COPD, Diabetes Mellitus, Hyperlipidemia, Hypertension, Myocardial Infarction ([place]), Pneumonia, Renal Disease, Sleep Apnea/CPAP/BIPAP Additional Past Medical History / Comment(s): Low back pain, IDDM type II, diabetic neuropathy, gout, DOUG/CPap, home O2, ischemic cardiomyopathy, murmur, heart skips, Chronic kidney disease, Last Myocardial Infarction Date:: 2004 History of Any Multi-Drug Resistant Organisms: None Reported Past Surgical History: AICD, Heart Catheterization With Stent, Pacemaker Past Anesthesia/Blood Transfusion Reactions: No Reported Reaction Date of Last Stent Placement:: 2004 Type of Cardiac Device: Permanent Pacemaker, AICD Device Placement Date:: 09/2004 Past Psychological History: Bipolar Smoking Status: Former smoker Past Alcohol Use History: None Reported Past Drug Use History: None Reported - Past Family History Father Family Medical History: Cancer Additional Family Medical History / Comment(s): Paternal grandfather with CAD Mother Family Medical History: Cancer Additional Family Medical History / Comment(s): Maternal grandmother had CAD. Mother had cancer. General Exam Limitations: physical limitation General appearance: alert, in no apparent distress, other (Patient is restless) Head exam: Present: atraumatic Eye exam: Present: normal appearance, PERRL, EOMI. Absent: nystagmus ENT exam: Present: normal oropharynx Neck exam: Present: normal inspection. Absent: tenderness Respiratory exam: Present: normal lung sounds bilaterally Cardiovascular Exam: Present: regular rate, normal rhythm GI/Abdominal exam: Present: soft. Absent: tenderness Extremities exam: Present: normal inspection, other (Boot on the right lower leg. Patient states is from a fall a couple weeks ago) Back exam: Present: normal inspection Neurological exam: Present: alert, CN II-XII intact Expanded Neurological exam: Present: protecting the airway Patient oriented to: Present: person, place. Absent: time Speech: Present: fluid speech Cranial nerves: EOM's Intact: Normal, Facial Sensation: Normal Cerebellar function: Finger to Nose: Normal (However patient will not close his eyes during exam) Sensory exam: Upper Extremity Light Touch: Normal, Lower Extremity Light Touch: Normal Motor strength exam: RUE: 4, LUE: 4, RLE: 5, LLE: 5 Eye Response: (4) open spontaneously Motor Response: (6) obeys commands Verbal Response: (4) confused conversation Psychiatric exam: Present: normal affect, normal mood Skin exam: Present: normal color Course Vital Signs 12/06/17 12/07/17 23:33 01:00 Temperature 97.5 F L Pulse Rate 101 H 119 H Respiratory 19 20 Rate Blood Pressure 130/79 140/84 O2 Sat by Pulse 100 Oximetry EKG Findings - EKG Comments: EKG Findings:: Sinus tachycardia 111. ID 162. QRS 108. QT 354. QTC 41. Left axis. Left anterior fascicular block. No acute ST change. Medical Decision Making - Medical Decision Making Patient reevaluated and not much change. Case was discussed in detail with Dr. Regalado who will admit his patient with neurology consult. - Lab Data Result diagrams: 12/07/17 01:30 12/07/17 01:30 Lab Results 12/06/17 12/07/17 12/07/17 Range/Units 23:46 01:30 01:30 WBC 12.9 H (3.8-10.6) k/uL RBC 5.65 (4.30-5.90) m/uL Hgb 16.6 (13.0-17.5) gm/dL Hct 54.0 H (39.0-53.0) % MCV 95.6 (80.0-100.0) fL MCH 29.3 (25.0-35.0) pg MCHC 30.7 L (31.0-37.0) g/dL RDW 15.9 H (11.5-15.5) % Plt Count 196 D (150-450) k/uL PT (9.0-12.0) sec INR (<1.2) APTT (22.0-30.0) sec Sodium (137-145) mmol/L Potassium (3.5-5.1) mmol/L Chloride (98-107) mmol/L Carbon Dioxide (22-30) mmol/L Anion Gap mmol/L BUN (9-20) mg/dL Creatinine (0.66-1.25) mg/dL Est GFR (CKD-EPI)AfAm (>60 ml/min/1.73 sqM) Est GFR (CKD-EPI)NonAf (>60 ml/min/1.73 sqM) Glucose (74-99) mg/dL POC Glucose (mg/dL) 137 H (75-99) mg/dL POC Glu [employer] ID Terrence Fleming Calcium (8.4-10.2) mg/dL Total Bilirubin (0.2-1.3) mg/dL AST (17-59) U/L ALT (21-72) U/L Alkaline Phosphatase (38-126) U/L Total Creatine Kinase 63 (55-170) U/L CK-MB (CK-2) 1.1 (0.0-2.4) ng/mL CK-MB (CK-2) Rel Index 1.7 Troponin I 0.028 (0.000-0.034) ng/mL Total Protein (6.3-8.2) g/dL Albumin (3.5-5.0) g/dL Serum Alcohol mg/dL 12/07/17 12/07/17 12/07/17 Range/Units 01:30 01:30 02:12 WBC (3.8-10.6) k/uL RBC (4.30-5.90) m/uL Hgb (13.0-17.5) gm/dL Hct (39.0-53.0) % MCV (80.0-100.0) fL MCH (25.0-35.0) pg MCHC (31.0-37.0) g/dL RDW (11.5-15.5) % Plt Count (150-450) k/uL PT 10.3 (9.0-12.0) sec INR 1.1 (<1.2) APTT 24.2 (22.0-30.0) sec Sodium 143 (137-145) mmol/L Potassium 5.6 H (3.5-5.1) mmol/L Chloride 100 (98-107) mmol/L Carbon Dioxide 27 (22-30) mmol/L Anion Gap 16 mmol/L BUN 54 H (9-20) mg/dL Creatinine 2.80 H (0.66-1.25) mg/dL Est GFR (CKD-EPI)AfAm 28 (>60 ml/min/1.73 sqM) Est GFR (CKD-EPI)NonAf 24 (>60 ml/min/1.73 sqM) Glucose 140 H (74-99) mg/dL POC Glucose (mg/dL) 148 H (75-99) mg/dL POC Glu [employer] ID Terrence Fleming Calcium 9.2 (8.4-10.2) mg/dL Total Bilirubin 0.6 (0.2-1.3) mg/dL AST 19 (17-59) U/L ALT 33 (21-72) U/L Alkaline Phosphatase 120 (38-126) U/L Total Creatine Kinase (55-170) U/L CK-MB (CK-2) (0.0-2.4) ng/mL CK-MB (CK-2) Rel Index Troponin I (0.000-0.034) ng/mL Total Protein 7.1 (6.3-8.2) g/dL Albumin 4.0 (3.5-5.0) g/dL Serum Alcohol <10 mg/dL - Radiology Data Radiology results: report reviewed (Computed tomography scan the brain shows no acute process. No change from prior. CT angios head and neck shows some possible stenosis right vertebral artery.), image reviewed (Chest x-ray shows some mild pulmonary vascular congestion.) Disposition Clinical Impression: Altered mental status Disposition: ADMITTED IP TO THIS HOSP Referrals: Tess Regalado MD [Primary Care Provider] - 1-2 days Decision Time: 02:37
[2017-12-07] MEDS ORDERED: LORazepam 2 MG/ML INJ IV STA ×2 (00:42→02:17)
--- NOTE | 2017-12-07 00:52 | CT ---
EXAMINATION TYPE: CT brain wo con for TPA DATE OF EXAM: 12/07/2017 COMPARISON: 11/26/2017 HISTORY: Neuro deficits CT DLP: mGycm Automated exposure control for dose reduction was used. FINDINGS: Ventricles have normal size. There is no mass effect nor midline shift. There is no sign of intracran ial hemorrhage. There is a large left vertebral artery. I see no posterior fossa mass. The calvarium is intact. IMPRESSION: NEGATIVE CT SCAN OF THE BRAIN. NO CHANGE COMPARED TO RECENT EXAM.
--- NOTE | 2017-12-07 01:23 | CT ---
EXAMINATION TYPE: CT angio head neck DATE OF EXAM: 12/07/2017 HISTORY: AMS COMPARISON: NONE CT DLP: 587.30 mGycm. Automated Exposure Control for Dose Reduction was Utilized. TECHNIQUE: CTA scan of the neck is performed with IV Contrast, patient injected with 200 mL of Isovu e 370, axial images are obtained, coronal and sagittal reformatted images are reviewed. Three-D recon structed images are created on an independent workstation and reviewed. FINDINGS: Exam was somewhat limited due to lack of patient cooperation. There is normal branching pat tern of the great vessels on the aortic arch. There is metal artifact from the pacemaker. There is bi lateral arterial flow in the common carotid arteries. There is arterial flow in the left vertebral ar evelyne. I see no definite contrast in the right vertebral artery. There is bilateral arterial flow in t he common internal and external carotid arteries. There is no evidence of aneurysm or dissection. I s ee no sign of hemodynamically significant stenosis at the carotid artery bifurcation. There is minima l calcification at the carotid bifurcation. There is normal appearance of the jugular veins. There is arterial flow in the vertebrobasilar artery system. The left vertebral artery is large and f ills the basilar artery. There is arterial flow in the anterior middle and posterior cerebral arteries. I see no evidence of a neurysm or neovascularity. There is no mass effect. There is no sign of hemodynamically significant s tenosis. There is normal contrast opacification of the venous sinuses. CONCLUSION: No evidence of hemodynamically significant stenosis in the carotid arteries. No CT angiographic abnor mality seen within the brain. Left vertebral artery is much larger than the right. There is very little contrast opacification of t he right vertebral artery that could relate to more proximal stenosis. Technically limited exam. Smal l hypodense irregular area in the right thyroid lobe of doubtful significance.
[2017-12-07 01:51] LABS: HGB 16.6 gm/dL (13.0-17.5); Hypochromasia Marked; MCH 29.3 pg (25.0-35.0); MCHC 30.7 g/dL (31.0-37.0); MCV 95.6 fL (80.0-100.0); Mean Platelet Volume 10.4; RBC 5.65 m/uL (4.30-5.90); RDW 15.9 % (11.5-15.5)
--- NOTE | 2017-12-07 01:51 | XR ---
EXAMINATION TYPE: XR chest 1V portable DATE OF EXAM: 12/07/2017 COMPARISON: 11/28/2017 HISTORY: Altered mental status TECHNIQUE: Single frontal view of the chest is obtained. FINDINGS: Heart is enlarged. There is some pulmonary vascular congestion. There is a left axillary p acemaker with the lead tips over the right ventricle. There are chest leads. IMPRESSION: There is evidence for mild heart failure that is increased slightly compared to last exa m.
[2017-12-07 01:56] LABS: Platelet Count 196 k/uL (150-450)
[2017-12-07 02:05] LABS: INR 1.1 (<1.2); Partial Thromboplastin Time 24.2 sec (22.0-30.0); Prothrombin Time 10.3 sec (9.0-12.0)
[2017-12-07 02:07] LABS: ALT 33 U/L (21-72); AST 19 U/L (17-59); Alcohol <10 mg/dL; Alkaline Phosphatase 120 U/L (38-126); Anion Gap 16 mmol/L; Blood Urea Nitrogen 54 mg/dL (9-20); Calcium 9.2 mg/dL (8.4-10.2); Carbon Dioxide 27 mmol/L (22-30); Chloride 100 mmol/L (98-107); Glucose 140 mg/dL (74-99); Potassium 5.6 mmol/L (3.5-5.1); Sodium 143 mmol/L (137-145); Total Bilirubin 0.6 mg/dL (0.2-1.3); Total Protein 7.1 g/dL (6.3-8.2)
[2017-12-07 02:13] LABS: Glucose,Whole Blood 148 mg/dL (75-99)
[2017-12-07 02:22] LABS: Creatine Kinase MB 1.1 ng/mL (0.0-2.4); Troponin I 0.028 ng/mL (0.000-0.034)
[2017-12-07] MEDS ORDERED: SODIUM CHLORIDE 0.9% 500 ML IV STA (02:40)
[2017-12-07 02:45] LABS: Eosinophils # (M) 0.88 k/uL (0-0.7); Neutrophils # (M) 8.63 k/uL (1.3-7.7); Neutrophils % (M) 69 %; Nucleated Red Blood Cells 3 /100 WBC (0-0); Total Cells Counted 200; WBC 12.5 k/uL (3.8-10.6)
[2017-12-07 02:46] LABS: Polychromasia Present
[2017-12-07 02:52] LABS: Appearance,Urine Clear (Clear); Bilirubin,Urine Negative (Negative); Blood,Urine Negative (Negative); Color,Urine Yellow; Glucose,Urine (UA) Negative (Negative); Ketones,Urine Negative (Negative); Leukocyte Esterase,Urine Negative (Negative); Nitrite,Urine Negative (Negative); Protein,Urine Negative (Negative); Specific Gravity,Urine 1.021 (1.001-1.035); Urobilinogen,Urine <2.0 mg/dL (<2.0)
[2017-12-07 03:01] LABS: Amphetamine Screen,Urine Not Detected (NotDetected); Barbiturate Screen,Urine Not Detected (NotDetected); Benzodiazepines Screen,Urine Not Detected (NotDetected); Cocaine Screen,Urine Not Detected (NotDetected); Methadone Screen, Urine Not Detected (NotDetected); Opiate Screen,Urine Not Detected (NotDetected); Oxycodone Screen, Urine Not Detected (NotDetected); Phencyclidine Screen,Urine Not Detected (NotDetected); Tricyclic Antidepressant,Urine Detected (NotDetected); Urn Cannabinoid Scrn Not Detected (NotDetected)
[2017-12-07 03:50] LABS: ABG Base Excess 4.8 mmol/L; ABG HCO3 33 mmol/L (21-25); ABG Oxygen Saturation 86.3 % (94-97); ABG PO2 59 mmHg (83-108); ABG TCO2 36 mmol/L (19-24)
[2017-12-07 04:06] LABS: ABG PH 7.19 (7.35-7.45)
[2017-12-07 04:07] LABS: ABG PCO2 87 mmHg (35-45)
[2017-12-07] MEDS ORDERED: IPRATROPIUM-ALBUTEROL 3 ML NEB INHALATION STA (04:14)
[2017-12-07 05:38] LABS: ABG Base Excess 5.4 mmol/L; ABG HCO3 33 mmol/L (21-25); ABG Oxygen Saturation 86.8 % (94-97); ABG PH 7.24 (7.35-7.45); ABG PO2 56 mmHg (83-108); ABG TCO2 35 mmol/L (19-24)
[2017-12-07 05:46] LABS: ABG PCO2 76 mmHg (35-45)
[2017-12-07] MEDS ORDERED: IPRATROPIUM-ALBUTEROL 3 ML NEB INHALATION PRN (05:59)
[2017-12-07] MEDS ORDERED: methylPREDNISolone SOD SUCCI 125 MG/2 ML VIAL IV STA (05:59)
[2017-12-07 07:58] LABS: Glucose,Whole Blood 177 mg/dL (75-99)
[2017-12-07] MEDS: IPRATROPIUM-ALBUTEROL 3 ML NEB INHALATION SCH ×4 (08:06→19:43)
[2017-12-07] MEDS: methylPREDNISolone SOD SUCCI 125 MG/2 ML VIAL IV SCH ×3 (09:31→18:24)
[2017-12-07] MEDS: SODIUM CHLORIDE 0.9% 1,000 ML IV SCH ×3 (09:31→12:25)
--- NOTE | 2017-12-07 10:32 | US ---
EXAMINATION TYPE: US venous doppler duplex LE RT DATE OF EXAM: 12/07/2017 10:27 AM COMPARISON: US 11/27/2017 CLINICAL HISTORY: Right leg swelling and pain. SIDE PERFORMED: Right TECHNIQUE: The lower extremity deep venous system is examined utilizing real time linear array sonog mynor with graded compression, doppler sonography and color-flow sonography. VESSELS IMAGED: External Iliac Vein (EIV) Common Femoral Vein Deep Femoral Vein Greater Saphenous Vein * Femoral Vein Popliteal Vein Small Saphenous Vein * Proximal Calf Veins (* superficial vessels) Grayscale, color doppler, spectral doppler imaging performed of the deep veins of the lower extremity . There is normal flow, compressibility, vascular waveforms. Right Leg: Negative for DVT IMPRESSION: No evidence for DVT.
[2017-12-07 11:36] LABS: ABG Base Excess 4.9 mmol/L; ABG HCO3 32 mmol/L (21-25); ABG PH 7.24 (7.35-7.45); ABG PO2 69 mmHg (83-108); ABG TCO2 35 mmol/L (19-24)
[2017-12-07] MEDS ORDERED: FUROSEMIDE 10 MG/ML 4 ML VIAL IV STA (11:37)
--- NOTE | 2017-12-07 11:41 | P.CNPUL ---
History of Present Illness Consult date: 12/07/17 Reason for consult: dyspnea, COPD History of present illness: A 57-year-old woman patient will growth and reverse department because of altered mental status. The patient apparently was dizzy and he was off balance. He was having frequent falls. He was also confused and extremely weak. No further history could have been obtained. The patient was found to be in acute hypercapnic respiratory failure on top of chronic hypercapnic respiratory failure. He was placed on BiPAP. Neuro workup was done for his altered mentation including a CAT scan of the brain and the CT angios the neck both of them within normal limits. Chest x-ray showed a component of mild CHF. Patient was moved to the intensive care unit. Currently is on a BiPAP at a pressure of 18/10 cm of water with an FiO2 of 45%. The most recent blood gas showed a pH of 7.24 with a pCO2 of 76 and pO2 of 56. He is calm and comfortable. On examination diminished breath sounds bilaterally along with some scattered expiratory wheezes and for that reason the patient was placed on DuoNeb nebulized treatment [id number] on IV Solu Medrol. Hemodynamically , no hypotension and the patient is producing adequate amount of urine output. He is currently on 100 mL of normal saline and has produced more than a liter of urine output since he came to the intensive care unit. He has a component of acute kidney injury. His creatinine was 1.56 at time of discharge from the hospital on and currently is up to 2.8. Potassium level is at 5.6. Is showing sinus tachycardia with left anterior fascicular block and Q waves over the anterior leads probably old. Troponin is negative. His latest echocardiogram was done in 11/26/2017 and the patient was found to have an ejection fraction of 40-45% and there is no evidence of any pulmonary hypertension or valvular heart disease. Note that there was an echocardiogram was done back in 2016 showing severe LV dysfunction with an ejection fraction of less than 20% and it seems as the patient's Vicco function is improved since. This patient was in the hospital on 11/25/2017 and he was discharged on 12/01/2017. During this time the patient was intubated and placed on a mechanical ventilator for respiratory failure. The patient had an acute kidney injury along with acute respiratory failure and acute rhabdomyolysis and he was discharged home. His outpatient pulmonary medications include Jonelle developed one inhalation a day, Ventolin rescue inhaler, and I'm not sure if he has any home CPAP or BiPAP. Noted that the patient is a right lower extremities with swollen and red and warm compared to the left. The area that is involved is mainly below the knee reaching all the way to his ankle. There is area of superficial ulceration stage I. Pulses are equal and symmetrical bilaterally. There may be a area of cellulitis involving the right lower extremity. Review of Systems ROS unobtainable: due to mental status 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, insulin-dependent diabetes mellitus, diabetic peripheral neuropathy, diabetic nephropathy, chronic renal failure with stage III chronic kidney disease with a baseline creatinine of 1.6-1.7, history of CHF and based on that echocardiogram that was done in 2018, the patient had a ejection fraction of 40-45%, history of severe ischemic cardiac myopathy and the patient has a AICD in place, coronary artery disease, hypertension, hyperlipidemia, depression him a previous history of acute respiratory failure requiring intubation mechanical ventilation, bipolar disorder, right ankle sprain wearing a immobilizing boot on outpatient basis Last Myocardial Infarction Date:: 2004 History of Any Multi-Drug Resistant Organisms: None Reported Past Surgical History: AICD, Heart Catheterization With Stent, Pacemaker Past Anesthesia/Blood Transfusion Reactions: No Reported Reaction Date of Last Stent Placement:: 2004 Type of Cardiac Device: Permanent Pacemaker, AICD Device Placement Date:: 09/2004 Past Psychological History: Bipolar Smoking Status: Former smoker Past Alcohol Use History: None Reported Past Drug Use History: None Reported - Past Family History Father Family Medical History: Cancer Additional Family Medical History / Comment(s): Paternal grandfather with CAD Mother Family Medical History: Cancer Additional Family Medical History / Comment(s): Maternal grandmother had CAD. Mother had cancer. Medications and Allergies Home Medications Medication Instructions Recorded Confirmed Type Gabapentin [Neurontin] 300 mg PO DAILY 01/05/16 12/07/17 History amLODIPine [Norvasc] 10 mg PO DAILY 01/05/16 12/07/17 History traZODone HCL [Desyrel] 200 mg PO HS 01/05/16 12/07/17 History Allopurinol [Zyloprim] 100 mg PO DAILY 05/21/17 12/07/17 History Escitalopram [Lexapro] 10 mg PO DAILY 05/21/17 12/07/17 History QUEtiapine [SEROquel] 200 mg PO HS 05/21/17 12/07/17 History cloNIDine HCL [Catapres] 0.2 mg PO TID 05/21/17 12/07/17 History Aspirin EC [Ecotrin Low Dose] 81 mg PO DAILY #100 tablet. 05/24/17 12/07/17 Rx Bumetanide [BUMEX] 4 mg PO BID #60 tab 05/24/17 12/07/17 Rx Insulin Aspart [NovoLOG Flexpen] 4 units SQ AC-TID #120 ml 06/12/17 12/07/17 Rx Insulin Glargine [Lantus] 20 unit SQ DAILY #600 vial 06/12/17 12/07/17 Rx Ipratropium-Albuterol Nebulize 3 ml INHALATION RT-QID PRN #120 neb 06/12/17 Rx [Duoneb 0.5 mg-3 mg/3 ml Soln] Albuterol Inhaler [Ventolin Hfa 2 puff INHALATION RT-QID PRN 11/25/17 12/07/17 History Inhaler] Fluticasone/Vilanterol [Breo 1 puff INHALATION RT-DAILY 11/25/17 12/07/17 History Ellipta 100-25 Mcg Inhaler] HYDROcodone/APAP 5-325MG [Cuddy 1 tab PO TID PRN 11/25/17 12/07/17 History 5-325] Ibuprofen [Motrin] 800 mg PO BID PRN 11/25/17 12/07/17 History Pregabalin [Lyrica] 75 mg PO BID 11/25/17 12/07/17 History Metoprolol Tartrate [Lopressor] 25 mg PO BID tab 12/01/17 12/07/17 Rx hydrALAZINE HCL [Apresoline] 25 mg PO TID 12/07/17 12/07/17 History Allergies Allergy/AdvReac Type Severity Reaction Status Date / Time Penicillins Allergy Unknown Verified 12/07/17 07:27 Physical Exam Vitals: Vital Signs Temp Pulse Resp BP Pulse Ox 12/07/17 11:15 80 13 97 12/07/17 11:00 79 11 L 129/78 98 12/07/17 10:45 79 12 121/78 98 12/07/17 10:30 81 12 131/77 98 12/07/17 10:15 82 24 96 12/07/17 10:00 82 12 135/73 97 12/07/17 09:45 84 13 9 L 12/07/17 09:30 84 14 166/89 99 12/07/17 09:15 84 11 L 148/86 97 12/07/17 09:00 86 13 148/86 94 L 12/07/17 08:45 84 12 144/76 94 L 12/07/17 08:30 85 11 L 149/96 95 12/07/17 08:22 87 12/07/17 08:15 93 23 100 12/07/17 08:06 91 12/07/17 08:00 97.7 F 92 22 161/75 95 12/07/17 06:21 98 14 113/58 93 L 12/07/17 06:03 99 14 109/56 91 L 12/07/17 05:20 102 H 14 106/76 90 L 12/07/17 04:54 109 H 14 116/65 91 L 12/07/17 04:36 98.5 F 112 H 16 122/74 93 L 12/07/17 04:30 113 H 12/07/17 04:20 116 H 12/07/17 04:12 117 H 14 128/67 90 L 12/07/17 03:40 119 H 18 123/67 97 12/07/17 03:15 130 H 20 156/72 12/07/17 02:20 121 H 17 138/81 100 12/07/17 02:00 122 H 17 137/86 97 12/07/17 01:30 120 H 18 143/67 95 12/07/17 01:00 119 H 20 140/84 100 12/07/17 00:30 121 H 18 140/84 97 12/06/17 23:50 110 H 18 139/67 98 12/06/17 23:33 97.5 F L 101 H 19 130/79 Intake and Output 12/06/17 12/07/17 12/07/17 22:59 06:59 14:59 Output Total 600 Balance -600 Output: Urine 600 Other: Weight 124.738 kg On examination, the patient is lethargic and obtunded at this point currently wearing a BiPAP at a pressure of 18/10 cm of water with an FiO2 of 40%. The patient is synchronous with the BiPAP machine. He opens his eyes to repeated stimulation. Does not follow commands yet.Head exam was generally normal. There was no scleral icterus or corneal arcus. Mucous membranes were moist.Neck was supple and without jugular venous distension, thyromegaly, or carotid bruits. Carotids were easily palpable bilaterally. There was no adenopathy. Lung sounds are diminished bilaterally along with some few scattered expiratory wheezes. Heart sounds are regular, positive S1-S2 and there is no significant murmurs.Cardiac exam revealed the PMI to be normally situated and sized. The rhythm was regular and no extrasystoles were noted during several minutes of auscultation. The first and second heart sounds were normal and physiologic splitting of the second heart sound was noted. There were no murmurs, rubs, clicks, or gallops.Abdominal exam revealed normal bowel sounds. The abdomen was soft, non-tender, and without masses, organomegaly, or appreciable enlargement of the abdominal aorta. Extremities shows some erythema and warmth in the right lower extremities. Ankle and the knee mainly anteriorly and there is an area of superficial ulceration stage I. Equal and symmetrical pulses bilaterally. No cyanosis or clubbing. Psychiatric history cannot be obtained. Skeletal examination the patient has a ankle sprain in the right lower extremity/ankle area. No obvious deformities Results - Laboratory Findings CBC and BMP: 12/07/17 01:30 12/07/17 01:30 ABG ABG pH 7.24 (7.35-7.45) L 12/07/17 05:29 ABG pCO2 76 mmHg (35-45) H* 12/07/17 05:29 ABG pO2 56 mmHg (83-108) L 12/07/17 05:29 ABG O2 Saturation 86.8 % (94-97) L 12/07/17 05:29 PT/INR, D-dimer PT 10.3 sec (9.0-12.0) 12/07/17 01:30 INR 1.1 (<1.2) 12/07/17 01:30 Abnormal lab findings: Abnormal Labs 12/06/17 12/07/17 12/07/17 23:46 01:30 01:30 WBC 12.5 H Hct 54.0 H MCHC 30.7 L RDW 15.9 H Neutrophils # (Manual) 8.63 H Eosinophils # (Manual) 0.88 H Nucleated RBCs 3 H ABG pH ABG pCO2 ABG pO2 ABG HCO3 ABG Total CO2 ABG O2 Saturation Potassium 5.6 H BUN 54 H Creatinine 2.80 H Glucose 140 H POC Glucose (mg/dL) 137 H U Tricyclic Antidepress 12/07/17 12/07/17 12/07/17 02:12 02:40 03:46 WBC Hct MCHC RDW Neutrophils # (Manual) Eosinophils # (Manual) Nucleated RBCs ABG pH 7.19 L* ABG pCO2 87 H* ABG pO2 59 L ABG HCO3 33 H ABG Total CO2 36 H ABG O2 Saturation 86.3 L Potassium BUN Creatinine Glucose POC Glucose (mg/dL) 148 H U Tricyclic Antidepress Detected H 12/07/17 12/07/17 05:29 07:56 WBC Hct MCHC RDW Neutrophils # (Manual) Eosinophils # (Manual) Nucleated RBCs ABG pH 7.24 L ABG pCO2 76 H* ABG pO2 56 L ABG HCO3 33 H ABG Total CO2 35 H ABG O2 Saturation 86.8 L Potassium BUN Creatinine Glucose POC Glucose (mg/dL) 177 H U Tricyclic Antidepress - Diagnostic Findings Chest x-ray: image reviewed Assessment and Plan Plan: Assessment 1 acute hypoxic and hypercapnic respiratory failure on top of a chronic hypoxic and hypercapnic respiratory failure. The exact cause for the respiratory decompensation is not clear. Obviously there is a concern of the right lower extremity cellulitis. There is also concern of CHF/fluid overload as the patient's chest x-ray showing some increased pulmonary vessel congestion and early edema. Pneumonia is doubtful at this stage. EKG is not showing any acute abnormalities and the cardiac enzymes are not elevated. Doppler of the lower extremities are all negative 2 altered mental status secondary to above. Neuro workup including a CAT scan of the brain and CT angios the neck is negative 3 COPD 4 obstructive sleep apnea suspected 5 coronary artery disease with previous coronary intervention and stenting 6 CHF with an ejection fraction 40-45% 7 previous history of severe ischemic cardiomyopathy and the patient has an AICD in place 8 chronic renal failure with stage III chronic kidney disease and the patient has developed acute kidney injury on top of his chronic renal failure and the creatinine is up to 2.8. The patient is nonoliguric. 9 diabetes mellitus, insulin-dependent with diabetic neuropathy and nephropathy 10 right ankle sprain 11 right lower extremity cellulitis suspected 12 hypertension 13 hyperlipidemia 14 depression/bipolar disorder Plan Continue BiPAP for respiratory support. The current settings 27/06. A follow- up blood gases will be done to assess the patient's ventilation. I don't think the patient is ventilating adequately for now. It's likely the patient will require intubation mechanical ventilation. Meanwhile, THE IV FLUIDS TO KVO. GIVEN FOR THE GRAMS OF IV LASIX PUSH AND ASSESS HIS URINE OUTPUT. I WILL COVER THIS PATIENT WITH IV ZOSYN. THIS WILL BE AN EMPIRIC ANTIBIOTIC COVERAGE. PUT THE PATIENT ON NOVOLOG SLIDING SCALE COVERAGE. CONTINUE BRONCHODILATORS. CONTINUE SYSTEMIC STEROIDS. USE INSULIN DRIP IF NEEDED. RESUME HIS SEROQUEL AND LEXAPRO AND NEURONTIN. WE'LL CONTINUE TO FOLLOW MAKE FURTHER RECOMMENDATIONS BASED ON HIS OVERALL PROGRESS. BETTER IV LINE NEEDS TO BE ESTABLISHED.
[2017-12-07] MEDS ORDERED: VANCOMYCIN IV PER PHARMACY 1 EACH MISC MISCELLANE PRN (11:42)
[2017-12-07 11:48] LABS: ABG PCO2 76 mmHg (35-45)
[2017-12-07] MEDS ORDERED: NALOXONE 0.4 MG/ML 1 ML VIAL IV PRN (11:51)
[2017-12-07] MEDS ORDERED: LEVOFLOXACIN 500MG-D5W PMX 500 MG in DEXTROSE/WATER 1 100ML.BAG IVPB ONE (12:00)
[2017-12-07] MEDS: HEPARIN SODIUM,PORCINE 5,000 UNIT/ML 1 ML VIAL SQ SCH ×2 (12:25→16:41)
[2017-12-07] MEDS: PANTOPRAZOLE 40 MG/10 ML VIAL IVP SCH (12:26)
--- NOTE | 2017-12-07 12:26 | P.HPIM ---
History of Present Illness H&P Date: 12/07/17 Chief Complaint: Altered mental status change and balance issues This is a 57-year-old male with a known history of coronary artery disease with cardiac stent, ischemic cardiomyopathy status post AICD, chronic kidney disease , diabetes mellitus, congestive heart failure, COPD, hyperlipidemia, hypertension, myocardial infarction and bipolar. Patient was just recently hospitalized at [facility] and discharged on December 01 after onset of respiratory failure in which she had required to be intubated. Also had evidence of pneumonia and acute rhabdomyolysis with acute kidney injury during that admission. Patient presented to the emergency room because of altered mental status changes and being off of balance. He was having frequent falls. Patient went into respiratory failure in the ER was placed on BiPAP and admitted to the ICU. Pulmonary service and neurology service was consulted. Computed tomography scan the brain shows no acute changes. CT of the head and neck shows no evidence of carotid stenosis. There was a possible right vertebral stenosis. EKG had shown sinus tach heart cardiac heart rate of 111. Chest x-ray did show findings of mild congestive heart failure. Urinalysis was negative. Drug screen was positive for tricyclic antidepressant. Patient has evidence of cellulitis of the right lower extremity. His last admission he was seen by orthopedics for right ankle sprain and was given boot. When that leg is moved patient responds to pain. Otherwise he is unresponsive. There is evidence of cellulitis and swelling in that leg. Venous Doppler was negative for DVT. Patient has been seen by pulmonary service they have added IV steroids , IV Lasix and antibiotics. Review of Systems Unable to obtain patient unresponsive 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, insulin-dependent diabetes mellitus, diabetic peripheral neuropathy, diabetic nephropathy, chronic renal failure with stage III chronic kidney disease with a baseline creatinine of 1.6-1.7, history of CHF and based on that echocardiogram that was done in 2018, the patient had a ejection fraction of 40-45%, history of severe ischemic cardiac myopathy and the patient has a AICD in place, coronary artery disease, hypertension, hyperlipidemia, depression him a previous history of acute respiratory failure requiring intubation mechanical ventilation, bipolar disorder, right ankle sprain wearing a immobilizing boot on outpatient basis Last Myocardial Infarction Date:: 2004 History of Any Multi-Drug Resistant Organisms: None Reported Past Surgical History: AICD, Heart Catheterization With Stent, Pacemaker Past Anesthesia/Blood Transfusion Reactions: No Reported Reaction Date of Last Stent Placement:: 2004 Type of Cardiac Device: Permanent Pacemaker, AICD Device Placement Date:: 09/2004 Past Psychological History: Bipolar Smoking Status: Former smoker Past Alcohol Use History: None Reported Past Drug Use History: None Reported - Past Family History Father Family Medical History: Cancer Additional Family Medical History / Comment(s): Paternal grandfather with CAD Mother Family Medical History: Cancer Additional Family Medical History / Comment(s): Maternal grandmother had CAD. Mother had cancer. Medications and Allergies Home Medications Medication Instructions Recorded Confirmed Type Gabapentin [Neurontin] 300 mg PO DAILY 01/05/16 12/07/17 History amLODIPine [Norvasc] 10 mg PO DAILY 01/05/16 12/07/17 History traZODone HCL [Desyrel] 200 mg PO HS 01/05/16 12/07/17 History Allopurinol [Zyloprim] 100 mg PO DAILY 05/21/17 12/07/17 History Escitalopram [Lexapro] 10 mg PO DAILY 05/21/17 12/07/17 History QUEtiapine [SEROquel] 200 mg PO HS 05/21/17 12/07/17 History cloNIDine HCL [Catapres] 0.2 mg PO TID 05/21/17 12/07/17 History Aspirin EC [Ecotrin Low Dose] 81 mg PO DAILY #100 tablet. 05/24/17 12/07/17 Rx Bumetanide [BUMEX] 4 mg PO BID #60 tab 05/24/17 12/07/17 Rx Insulin Aspart [NovoLOG Flexpen] 4 units SQ AC-TID #120 ml 06/12/17 12/07/17 Rx Insulin Glargine [Lantus] 20 unit SQ DAILY #600 vial 06/12/17 12/07/17 Rx Ipratropium-Albuterol Nebulize 3 ml INHALATION RT-QID PRN #120 neb 06/12/17 Rx [Duoneb 0.5 mg-3 mg/3 ml Soln] Albuterol Inhaler [Ventolin Hfa 2 puff INHALATION RT-QID PRN 11/25/17 12/07/17 History Inhaler] Fluticasone/Vilanterol [Breo 1 puff INHALATION RT-DAILY 11/25/17 12/07/17 History Ellipta 100-25 Mcg Inhaler] HYDROcodone/APAP 5-325MG [[place] 1 tab PO TID PRN 11/25/17 12/07/17 History 5-325] Ibuprofen [Motrin] 800 mg PO BID PRN 11/25/17 12/07/17 History Pregabalin [Lyrica] 75 mg PO BID 11/25/17 12/07/17 History Metoprolol Tartrate [Lopressor] 25 mg PO BID tab 12/01/17 12/07/17 Rx hydrALAZINE HCL [Apresoline] 25 mg PO TID 12/07/17 12/07/17 History Allergies Allergy/AdvReac Type Severity Reaction Status Date / Time Penicillins Allergy Unknown Verified 12/07/17 07:27 Physical Exam Vitals: Vital Signs Temp Pulse Resp BP Pulse Ox 12/07/17 11:15 80 13 97 12/07/17 11:00 79 11 L 129/78 98 12/07/17 10:45 79 12 121/78 98 12/07/17 10:30 81 12 131/77 98 12/07/17 10:15 82 24 96 12/07/17 10:00 82 12 135/73 97 12/07/17 09:45 84 13 9 L 12/07/17 09:30 84 14 166/89 99 12/07/17 09:15 84 11 L 148/86 97 12/07/17 09:00 86 13 148/86 94 L 12/07/17 08:45 84 12 144/76 94 L 12/07/17 08:30 85 11 L 149/96 95 12/07/17 08:22 87 12/07/17 08:15 93 23 100 12/07/17 08:06 91 12/07/17 08:00 97.7 F 92 22 161/75 95 12/07/17 06:21 98 14 113/58 93 L 12/07/17 06:03 99 14 109/56 91 L 12/07/17 05:20 102 H 14 106/76 90 L 12/07/17 04:54 109 H 14 116/65 91 L 12/07/17 04:36 98.5 F 112 H 16 122/74 93 L 12/07/17 04:30 113 H 12/07/17 04:20 116 H 12/07/17 04:12 117 H 14 128/67 90 L 12/07/17 03:40 119 H 18 123/67 97 12/07/17 03:15 130 H 20 156/72 12/07/17 02:20 121 H 17 138/81 100 12/07/17 02:00 122 H 17 137/86 97 12/07/17 01:30 120 H 18 143/67 95 12/07/17 01:00 119 H 20 140/84 100 12/07/17 00:30 121 H 18 140/84 97 12/06/17 23:50 110 H 18 139/67 98 12/06/17 23:33 97.5 F L 101 H 19 130/79 Intake and Output 12/06/17 12/07/17 12/07/17 22:59 06:59 14:59 Output Total 600 Balance -600 Output: Urine 600 Other: Weight 124.738 kg Results CBC & Chem 7: 12/07/17 01:30 12/07/17 01:30 Labs: Abnormal Lab Results - Last 24 Hours (Table) 12/06/17 12/07/17 12/07/17 Range/Units 23:46 01:30 01:30 WBC 12.5 H (3.8-10.6) k/uL Hct 54.0 H (39.0-53.0) % MCHC 30.7 L (31.0-37.0) g/dL RDW 15.9 H (11.5-15.5) % Neutrophils # (Manual) 8.63 H (1.3-7.7) k/uL Eosinophils # (Manual) 0.88 H (0-0.7) k/uL Nucleated RBCs 3 H (0-0) /100 WBC ABG pH (7.35-7.45) ABG pCO2 (35-45) mmHg ABG pO2 (83-108) mmHg ABG HCO3 (21-25) mmol/L ABG Total CO2 (19-24) mmol/L ABG O2 Saturation (94-97) % Potassium 5.6 H (3.5-5.1) mmol/L BUN 54 H (9-20) mg/dL Creatinine 2.80 H (0.66-1.25) mg/dL Glucose 140 H (74-99) mg/dL POC Glucose (mg/dL) 137 H (75-99) mg/dL U Tricyclic Antidepress (NotDetected) 12/07/17 12/07/17 12/07/17 Range/Units 02:12 02:40 03:46 WBC (3.8-10.6) k/uL Hct (39.0-53.0) % MCHC (31.0-37.0) g/dL RDW (11.5-15.5) % Neutrophils # (Manual) (1.3-7.7) k/uL Eosinophils # (Manual) (0-0.7) k/uL Nucleated RBCs (0-0) /100 WBC ABG pH 7.19 L* (7.35-7.45) ABG pCO2 87 H* (35-45) mmHg ABG pO2 59 L (83-108) mmHg ABG HCO3 33 H (21-25) mmol/L ABG Total CO2 36 H (19-24) mmol/L ABG O2 Saturation 86.3 L (94-97) % Potassium (3.5-5.1) mmol/L BUN (9-20) mg/dL Creatinine (0.66-1.25) mg/dL Glucose (74-99) mg/dL POC Glucose (mg/dL) 148 H (75-99) mg/dL U Tricyclic Antidepress Detected H (NotDetected) 12/07/17 12/07/17 12/07/17 Range/Units 05:29 07:56 11:25 WBC (3.8-10.6) k/uL Hct (39.0-53.0) % MCHC (31.0-37.0) g/dL RDW (11.5-15.5) % Neutrophils # (Manual) (1.3-7.7) k/uL Eosinophils # (Manual) (0-0.7) k/uL Nucleated RBCs (0-0) /100 WBC ABG pH 7.24 L 7.24 L (7.35-7.45) ABG pCO2 76 H* 76 H* (35-45) mmHg ABG pO2 56 L 69 L (83-108) mmHg ABG HCO3 33 H 32 H (21-25) mmol/L ABG Total CO2 35 H 35 H (19-24) mmol/L ABG O2 Saturation 86.8 L 92.0 L (94-97) % Potassium (3.5-5.1) mmol/L BUN (9-20) mg/dL Creatinine (0.66-1.25) mg/dL Glucose (74-99) mg/dL POC Glucose (mg/dL) 177 H (75-99) mg/dL U Tricyclic Antidepress (NotDetected) Assessment and Plan Assessment: 1. Acute hypoxic and hypercapnic respiratory failure with known chronic hypoxic and hypercapnic respiratory failure. Exact etiology is unclear. Possibly related to CHF or COPD exacerbation. Patient currently on BiPAP. Pulmonary service following closely. 2. Metabolic encephalopathy with Altered mental status changes secondary to the respiratory failure 3. Acute systolic congestive heart failure with a known EF of 40-45%. Started on IV Lasix. Echo pending 4. Right leg cellulitis . continue antibiotics. Venous Doppler negative for DVT 5. Acute on chronic renal failure, stage III. creatinine is up to 2.8. Continue to monitor. 6. History of severe ischemic heart myopathy status post AICD 7. History of coronary artery disease with cardiac stents 8. Diabetes mellitus, insulin-dependent continue sliding scale coverage 9. Acute COPD exacerbation: Currently on IV Solu-Medrol and bronchodilators 10. Essential hypertension 11. Right ankle sprain 12. History of bipolar 13. Hyperlipidemia 14. Hyperkalemia due to patient's acute renal failure. Should improve with the Lasix. Repeat labs in a.m. DVT prophylaxis subcu heparin Time with Patient: Greater than 30 (Greater than 50% of the total time spent in counseling and coordination of care.I performed an examination of the patient and discussed their management with the physician Motorboat Mechanic Inboard/Outboard. I have reviewed the Physician Motorboat Mechanic Inboard/Outboard's notes and agree with the documented findings and plan of care)
[2017-12-07] MEDS ORDERED: VANCOMYCIN 2,000 MG in SODIUM CHLORIDE 0.9% 500 ML IVPB SCH (13:00)
[2017-12-07 13:01] LABS: Glucose,Whole Blood 155 mg/dL (75-99)
[2017-12-07 13:13] VITALS: BMI 38.5
[2017-12-07] MEDS: INSULIN ASPART 100 UNIT/ML 1 ML 10 ML VIAL SQ SCH ×3 (13:24→21:22)
[2017-12-07 16:34] LABS: Glucose,Whole Blood 134 mg/dL (75-99)
[2017-12-07 18:13] LABS: ABG Base Excess 5.6 mmol/L; ABG HCO3 32 mmol/L (21-25); ABG Oxygen Saturation 95.6 % (94-97); ABG PCO2 67 mmHg (35-45); ABG PH 7.29 (7.35-7.45); ABG PO2 80 mmHg (83-108); ABG TCO2 34 mmol/L (19-24)
--- NOTE | 2017-12-07 18:59 | P.CNNES ---
History of Present Illness Consult date: 12/07/17 Reason for Consult: This patient is admitted for respiratory failure and altered mental status. History of Present Illness: This patient is a 57-year-old male with history of multiple complex medical conditions including coronary artery disease with cardiac stent placement, ischemic cardiomyopathy, status post AICD placement, chronic kidney disease, diabetes mellitus, and COPD exacerbation. Patient was just recently discharged from hospital on December 01 after being treated for respiratory failure. During that admission he was intubated. Patient was discharge and was coming along fairly well until he developed altered mental status and loss of balance. He was brought back to the emergency room yesterday and was evaluated in the ER by Dr. Ramirez. He was sent for a computed tomography scan of the brain which was negative for any acute changes. He also underwent CTA angiogram of the head and neck which revealed no evidence of hemodynamically significant stenosis in the carotid arteries. No evidence of angiographic abnormalities in the brain. No aneurysm was noted. Patient continued to show evidence of respiratory distress. He was placed on BiPAP and admitted to the intensive care unit. His drug screen was positive for Tri-Cyclen antidepressants. He is being treated for cellulitis in the right lower extremity. Venous Doppler ultrasound was negative for DVT. Patient is now resting comfortably in the ICU. He is able to answer some simple questions. He did have evidence of respiratory distress and hypoxia. He likely has symptoms related to hypoxic encephalopathy. As noted CAT scan of the brain was negative for acute changes. He is being closely followed by pulmonary medicine for possible intubation of his Restoril status worsens. We will continue close neurological follow-up with this patient in the ICU. His overall prognosis at this time remains guarded. Review of Systems ROS unobtainable: due to mental status Constitutional: Denies chills, Denies fever Eyes: denies blurred vision, denies pain Ears, nose, mouth and throat: Denies headache, Denies sore throat Cardiovascular: Denies chest pain, Denies shortness of breath Respiratory: Denies cough Gastrointestinal: Denies abdominal pain, Denies diarrhea, Denies nausea, Denies vomiting Musculoskeletal: Denies myalgias Integumentary: Denies pruritus, Denies rash Neurological: Reports change in mentation, Reports confusion, Reports lack of coordination, Reports paresthesias, Denies numbness, Denies weakness Psychiatric: Denies anxiety, Denies depression Endocrine: Denies fatigue, Denies weight change Past Medical History Past Medical History: Coronary Artery Disease (CAD), Chest Pain / Angina, Heart Failure, COPD, Diabetes Mellitus, Hyperlipidemia, Hypertension, Myocardial Infarction ([place]), Pneumonia, Renal Disease, Sleep Apnea/CPAP/BIPAP Additional Past Medical History / Comment(s): COPD, suspected obstructive sleep apnea, chronic hypoxic and hypercapnic the story failure, insulin-dependent diabetes mellitus, diabetic peripheral neuropathy, diabetic nephropathy, chronic renal failure with stage III chronic kidney disease with a baseline creatinine of 1.6-1.7, history of CHF and based on that echocardiogram that was done in 2018, the patient had a ejection fraction of 40-45%, history of severe ischemic cardiac myopathy and the patient has a AICD in place, coronary artery disease, hypertension, hyperlipidemia, depression him a previous history of acute respiratory failure requiring intubation mechanical ventilation, bipolar disorder, right ankle sprain wearing a immobilizing boot on outpatient basis Last Myocardial Infarction Date:: 2004 History of Any Multi-Drug Resistant Organisms: None Reported Past Surgical History: AICD, Heart Catheterization With Stent, Pacemaker Past Anesthesia/Blood Transfusion Reactions: No Reported Reaction Date of Last Stent Placement:: 2004 Type of Cardiac Device: Permanent Pacemaker, AICD Device Placement Date:: 09/2004 Past Psychological History: Bipolar Smoking Status: Former smoker Past Alcohol Use History: None Reported Past Drug Use History: None Reported - Past Family History Father Family Medical History: Cancer Additional Family Medical History / Comment(s): Paternal grandfather with CAD Mother Family Medical History: Cancer Additional Family Medical History / Comment(s): Maternal grandmother had CAD. Mother had cancer. Medications and Allergies Home Medications Medication Instructions Recorded Confirmed Type Gabapentin [Neurontin] 300 mg PO DAILY 01/05/16 12/07/17 History amLODIPine [Norvasc] 10 mg PO DAILY 01/05/16 12/07/17 History traZODone HCL [Desyrel] 200 mg PO HS 01/05/16 12/07/17 History Allopurinol [Zyloprim] 100 mg PO DAILY 05/21/17 12/07/17 History Escitalopram [Lexapro] 10 mg PO DAILY 05/21/17 12/07/17 History QUEtiapine [SEROquel] 200 mg PO HS 05/21/17 12/07/17 History cloNIDine HCL [Catapres] 0.2 mg PO TID 05/21/17 12/07/17 History Aspirin EC [Ecotrin Low Dose] 81 mg PO DAILY #100 tablet. 05/24/17 12/07/17 Rx Bumetanide [BUMEX] 4 mg PO BID #60 tab 05/24/17 12/07/17 Rx Insulin Aspart [NovoLOG Flexpen] 4 units SQ AC-TID #120 ml 06/12/17 12/07/17 Rx Insulin Glargine [Lantus] 20 unit SQ DAILY #600 vial 06/12/17 12/07/17 Rx Ipratropium-Albuterol Nebulize 3 ml INHALATION RT-QID PRN #120 neb 06/12/17 Rx [Duoneb 0.5 mg-3 mg/3 ml Soln] Albuterol Inhaler [Ventolin Hfa 2 puff INHALATION RT-QID PRN 11/25/17 12/07/17 History Inhaler] Fluticasone/Vilanterol [Breo 1 puff INHALATION RT-DAILY 11/25/17 12/07/17 History Ellipta 100-25 Mcg Inhaler] HYDROcodone/APAP 5-325MG [[place] 1 tab PO TID PRN 11/25/17 12/07/17 History 5-325] Ibuprofen [Motrin] 800 mg PO BID PRN 11/25/17 12/07/17 History Pregabalin [Lyrica] 75 mg PO BID 11/25/17 12/07/17 History Metoprolol Tartrate [Lopressor] 25 mg PO BID tab 12/01/17 12/07/17 Rx hydrALAZINE HCL [Apresoline] 25 mg PO TID 12/07/17 12/07/17 History Allergies Allergy/AdvReac Type Severity Reaction Status Date / Time Penicillins Allergy Unknown Verified 12/07/17 07:27 Physical Examination - Vital Signs Vital Signs: Vital Signs Temp Pulse Resp BP Pulse Ox 12/07/17 18:00 88 11 L 161/86 100 12/07/17 17:00 88 14 156/91 100 12/07/17 16:30 80 18 144/81 96 12/07/17 16:00 98.1 F 91 67 H 156/95 95 12/07/17 15:47 82 12/07/17 15:31 88 0330/18 15:30 93 60 H 155/91 98 12/07/17 15:00 89 20 140/79 94 L 12/07/17 14:30 82 11 L 155/87 99 12/07/17 14:00 82 14 149/85 99 12/07/17 13:30 86 16 166/98 100 12/07/17 13:00 91 23 164/84 99 12/07/17 12:53 79 12/07/17 12:42 85 12/07/17 12:30 84 12 162/82 95 12/07/17 12:00 98.3 F 90 12 158/92 97 12/07/17 11:30 88 16 128/77 94 L 12/07/17 11:15 80 13 97 12/07/17 11:00 79 11 L 129/78 98 12/07/17 10:45 79 12 121/78 98 12/07/17 10:30 81 12 131/77 98 12/07/17 10:15 82 24 96 12/07/17 10:00 82 12 135/73 97 12/07/17 09:45 84 13 9 L 12/07/17 09:30 84 14 166/89 99 12/07/17 09:15 84 11 L 148/86 97 12/07/17 09:00 86 13 148/86 94 L 12/07/17 08:45 84 12 144/76 94 L 12/07/17 08:30 85 11 L 149/96 95 12/07/17 08:22 87 12/07/17 08:15 93 23 100 12/07/17 08:06 91 12/07/17 08:00 97.7 F 92 22 161/75 95 12/07/17 06:21 98 14 113/58 93 L 12/07/17 06:03 99 14 109/56 91 L 12/07/17 05:20 102 H 14 106/76 90 L 12/07/17 04:54 109 H 14 116/65 91 L 12/07/17 04:36 98.5 F 112 H 16 122/74 93 L 12/07/17 04:30 113 H 12/07/17 04:20 116 H 12/07/17 04:12 117 H 14 128/67 90 L 12/07/17 03:40 119 H 18 123/67 97 12/07/17 03:20 97.7 F 12 12/07/17 03:15 130 H 20 156/72 12/07/17 02:20 121 H 17 138/81 100 12/07/17 02:00 122 H 17 137/86 97 12/07/17 01:30 120 H 18 143/67 95 12/07/17 01:00 119 H 20 140/84 100 12/07/17 00:30 121 H 18 140/84 97 12/06/17 23:50 110 H 18 139/67 98 12/06/17 23:33 97.5 F L 101 H 19 130/79 Intake and Output 12/07/17 12/07/17 12/07/17 06:59 14:59 22:59 Intake Total 200 60 Output Total 600 1325 295 Balance -184 -9868 -213 Intake: IV 200 60 Sodium Chloride 0.9% 1, 100 000 ml @ 100 mls/hr IV . Q10H [facility] Rx#:[id number] Sodium Chloride 0.9% 1, 100 60 000 ml @ 20 mls/hr IV . Q24H [facility] Rx#:[id number] Output: Urine 600 1325 295 Other: Voiding Method Indwelling Catheter Indwelling Catheter Weight 135.9 kg - Constitutional General appearance: average body habitus, cooperative - EENT EENT: PERRL, mucous membranes moist - Respiratory Respiratory: lungs clear, normal breath sounds - Cardiovascular Cardiovascular: regular rate, normal S1, normal S2 Extremities: no peripheral edema bilaterally - Gastrointestinal Gastrointestinal: normoactive bowel sounds - Integumentary Integumentary: normal - Neurologic Cranial nerve examination: PERRL, EOMI, V1/V2/V3 grossly intact, face symmetric , tongue midline, intact gag reflex, intact corneal reflex, normal palatal elevation Speech examination: intact Sensorimotor examination: intact Motor examination - right side: 4/5: biceps, triceps, wrist flexion, wrist extension, hammer operator, hip flexors, knee extensors, dorsiflexion, toe extension (EHL) , plantarflexion Motor examination - left side: 4/5: biceps, triceps, wrist flexion, wrist extension, hammer operator, hip flexors, knee extensors, dorsiflexion, toe extension (EHL) , plantarflexion Detailed sensory examination: intact Reflex and gait examination: intact Reflexes: 1+: ankle, bicep, knee, tricep - Musculoskeletal Musculoskeletal: no pain - Psychiatric Psychiatric: mood/affect appropriate, cooperative Results - Laboratory Findings CBC and BMP: 12/07/17 01:30 12/07/17 01:30 Abnormal Lab Findings: Abnormal Labs 12/06/17 12/07/17 12/07/17 23:46 01:30 01:30 WBC 12.5 H Hct 54.0 H MCHC 30.7 L RDW 15.9 H Neutrophils # (Manual) 8.63 H Eosinophils # (Manual) 0.88 H Nucleated RBCs 3 H ABG pH ABG pCO2 ABG pO2 ABG HCO3 ABG Total CO2 ABG O2 Saturation Potassium 5.6 H BUN 54 H Creatinine 2.80 H Glucose 140 H POC Glucose (mg/dL) 137 H U Tricyclic Antidepress 12/07/17 12/07/17 12/07/17 02:12 02:40 03:46 WBC Hct MCHC RDW Neutrophils # (Manual) Eosinophils # (Manual) Nucleated RBCs ABG pH 7.19 L* ABG pCO2 87 H* ABG pO2 59 L ABG HCO3 33 H ABG Total CO2 36 H ABG O2 Saturation 86.3 L Potassium BUN Creatinine Glucose POC Glucose (mg/dL) 148 H U Tricyclic Antidepress Detected H 12/07/17 12/07/17 12/07/17 05:29 07:56 11:25 WBC Hct MCHC RDW Neutrophils # (Manual) Eosinophils # (Manual) Nucleated RBCs ABG pH 7.24 L 7.24 L ABG pCO2 76 H* 76 H* ABG pO2 56 L 69 L ABG HCO3 33 H 32 H ABG Total CO2 35 H 35 H ABG O2 Saturation 86.8 L 92.0 L Potassium BUN Creatinine Glucose POC Glucose (mg/dL) 177 H U Tricyclic Antidepress 12/07/17 12/07/17 12/07/17 12:59 16:32 18:12 WBC Hct MCHC RDW Neutrophils # (Manual) Eosinophils # (Manual) Nucleated RBCs ABG pH 7.29 L ABG pCO2 67 H ABG pO2 80 L ABG HCO3 32 H ABG Total CO2 34 H ABG O2 Saturation Potassium BUN Creatinine Glucose POC Glucose (mg/dL) 155 H 134 H U Tricyclic Antidepress Assessment and Plan (1) Hypoxic encephalopathy Current Visit: Yes Status: Acute Code(s): G93.1 - ANOXIC BRAIN DAMAGE, NOT ELSEWHERE CLASSIFIED SNOMED Code(s): 713888072 (2) COPD exacerbation Current Visit: No Status: Acute Code(s): J44.1 - CHRONIC OBSTRUCTIVE PULMONARY DISEASE W (ACUTE) EXACERBATION SNOMED Code(s): 368963254654894 (3) Congestive heart failure (CHF) Current Visit: No Status: Acute Code(s): I50.9 - HEART FAILURE, UNSPECIFIED SNOMED Code(s): 86656237 (4) Respiratory failure Current Visit: No Status: Resolved Code(s): J96.90 - RESPIRATORY FAILURE, UNSP, UNSP W HYPOXIA OR HYPERCAPNIA SNOMED Code(s): 355968154 Plan: This patient is a 57-year-old right-handed -[place] male who was admitted to Hospital with symptoms of acute breast Nikita failure. He was placed on BiPAP and admitted to the intensive care unit. In the ER he underwent a computed tomography scan of the brain as well as CT angiogram of the head and neck. He was seen in the ER by Dr. Ramirez. Results of the computed tomography scan brain and CTA angiogram of the head and neck were negative for any acute findings. Patient continued to show signs of lethargy and altered mental status. He was hypoxic on admission to the hospital. He is currently being maintained in the ICU on BiPAP. His neurological examination at this time is nonfocal. This patient has evidence suggesting hypoxic encephalopathy secondary to breast Nikita failure. We will continue to monitor his progress closely during this admission. Hopefully as his respiratory status improves his mental status will also improve. We will continue to follow his progress in the intensive care unit daily. We will obtain a routine EEG for further assessment. His overall prognosis at this time remains guarded. Time with Patient: Greater than 30
[2017-12-07 20:00] LABS: Glucose,Whole Blood 190 mg/dL (75-99)
[2017-12-07] MEDS: PREGABALIN 75 MG CAP PO SCH (21:22)
[2017-12-07] MEDS: QUEtiapine 200 MG TAB PO SCH (21:22)
[2017-12-07] MEDS: METOPROLOL TARTRATE 25 MG TAB PO SCH (21:22)
[2017-12-07] MEDS: amLODIPine 10 MG TAB PO SCH (21:22)
[2017-12-07] MEDS: FUROSEMIDE 10 MG/ML 4 ML VIAL IV SCH (21:23)
[2017-12-08] MEDS: HEPARIN SODIUM,PORCINE 5,000 UNIT/ML 1 ML VIAL SQ SCH ×3 (00:25→15:46)
[2017-12-08] MEDS: hydrALAZINE HCL 25 MG TAB PO SCH ×3 (00:25→15:46)
[2017-12-08] MEDS: cloNIDine HCL 0.2 MG TAB PO SCH ×3 (00:25→15:46)
[2017-12-08] MEDS: methylPREDNISolone SOD SUCCI 125 MG/2 ML VIAL IV SCH ×4 (00:25→18:42)
[2017-12-08 00:28] LABS: Glucose,Whole Blood 190 mg/dL (75-99)
[2017-12-08] MEDS: INSULIN ASPART 100 UNIT/ML 1 ML 10 ML VIAL SQ SCH ×6 (00:29→20:19)
[2017-12-08 04:38] LABS: Glucose,Whole Blood 150 mg/dL (75-99)
[2017-12-08 05:13] LABS: ABG Base Excess 7.6 mmol/L; ABG HCO3 34 mmol/L (21-25); ABG Oxygen Saturation 97.1 % (94-97); ABG PCO2 64 mmHg (35-45); ABG PH 7.33 (7.35-7.45); ABG PO2 91 mmHg (83-108); ABG TCO2 36 mmol/L (19-24)
[2017-12-08 05:14] LABS: Basophils % (A) 0 %; Eosinophils % (A) 0 %; HCT 50.2 % (39.0-53.0); HGB 15.1 gm/dL (13.0-17.5); Hypochromasia Moderate; Lymphocytes % (A) 9 %; MCH 28.2 pg (25.0-35.0); MCV 94.1 fL (80.0-100.0); Mean Platelet Volume 10.5; Monocytes # (A) 0.4 k/uL (0-1.0); Monocytes % (A) 4 %; Neutrophils # (A) 9.3 k/uL (1.3-7.7); Neutrophils % (A) 86 %; Platelet Count 181 k/uL (150-450); RBC 5.34 m/uL (4.30-5.90); RDW 15.7 % (11.5-15.5); WBC 10.8 k/uL (3.8-10.6)
[2017-12-08 05:49] LABS: Magnesium 2.3 mg/dL (1.6-2.3); Phosphorus 3.3 mg/dL (2.5-4.5); Potassium 5.3 mmol/L (3.5-5.1)
--- NOTE | 2017-12-08 06:54 | XR ---
EXAMINATION TYPE: XR chest 1V DATE OF EXAM: 12/08/2017 HISTORY: overload. REFERENCE: Previous study dated 12/07/2017. FINDINGS: There is a multilead pacing device in place in the left. The heart is enlarged. Lung volumes are prominent. The lungs appear clear. There is vascular congesti on. I could not exclude a small left effusion. IMPRESSION: 1. I SUSPECT COPD. 2. CARDIOMEGALY. 3. VASCULAR CONGESTION. 4. I CANNOT EXCLUDE A SMALL, LEFT EFFUSION.
[2017-12-08] MEDS: IPRATROPIUM-ALBUTEROL 3 ML NEB INHALATION SCH ×4 (07:32→20:39)
[2017-12-08 08:01] LABS: Glucose,Whole Blood 149 mg/dL (75-99)
[2017-12-08] MEDS: ASPIRIN 81 MG PO SCH (08:36)
[2017-12-08] MEDS: amLODIPine 10 MG TAB PO SCH (08:36)
[2017-12-08] MEDS: ESCITALOPRAM 10 MG TAB PO SCH (08:37)
[2017-12-08] MEDS: GABAPENTIN 300 MG CAP PO SCH (08:37)
[2017-12-08] MEDS ORDERED: HYDROcodone/APAP 5-325MG 1 EACH TAB PO PRN (08:56)
[2017-12-08] MEDS ORDERED: LEVOFLOXACIN 250MG-D5W PMX 250 MG in DEXTROSE/WATER 1 50ML.BAG IVPB SCH (09:00)
[2017-12-08] MEDS: FUROSEMIDE 10 MG/ML 4 ML VIAL IV SCH ×2 (09:57→22:12)
[2017-12-08] MEDS: PANTOPRAZOLE 40 MG/10 ML VIAL IVP SCH (09:58)
[2017-12-08] MEDS: METOPROLOL TARTRATE 25 MG TAB PO SCH ×2 (09:58→22:12)
[2017-12-08] MEDS: PREGABALIN 75 MG CAP PO SCH ×2 (09:59→22:11)
--- NOTE | 2017-12-08 11:27 | P.PN ---
Subjective Progress Note Date: 12/08/17 A 57-year-old woman patient will growth and reverse department because of altered mental status. The patient apparently was dizzy and he was off balance. He was having frequent falls. He was also confused and extremely weak. No further history could have been obtained. The patient was found to be in acute hypercapnic respiratory failure on top of chronic hypercapnic respiratory failure. He was placed on BiPAP. Neuro workup was done for his altered mentation including a CAT scan of the brain and the CT angios the neck both of them within normal limits. Chest x-ray showed a component of mild CHF. Patient was moved to the intensive care unit. Currently is on a BiPAP at a pressure of 18/10 cm of water with an FiO2 of 45%. The most recent blood gas showed a pH of 7.24 with a pCO2 of 76 and pO2 of 56. He is calm and comfortable. On examination diminished breath sounds bilaterally along with some scattered expiratory wheezes and for that reason the patient was placed on DuoNeb nebulized treatment [id number] on IV Solu Medrol. Hemodynamically , no hypotension and the patient is producing adequate amount of urine output. He is currently on 100 mL of normal saline and has produced more than a liter of urine output since he came to the intensive care unit. He has a component of acute kidney injury. His creatinine was 1.56 at time of discharge from the hospital on and currently is up to 2.8. Potassium level is at 5.6. Is showing sinus tachycardia with left anterior fascicular block and Q waves over the anterior leads probably old. Troponin is negative. His latest echocardiogram was done in 11/26/2017 and the patient was found to have an ejection fraction of 40-45% and there is no evidence of any pulmonary hypertension or valvular heart disease. Note that there was an echocardiogram was done back in 2016 showing severe LV dysfunction with an ejection fraction of less than 20% and it seems as the patient's [place] function is improved since. This patient was in the hospital on 11/25/2017 and he was discharged on 12/01/2017. During this time the patient was intubated and placed on a mechanical ventilator for respiratory failure. The patient had an acute kidney injury along with acute respiratory failure and acute rhabdomyolysis and he was discharged home. His outpatient pulmonary medications include Spur developed one inhalation a day, Ventolin rescue inhaler, and I'm not sure if he has any home CPAP or BiPAP. Noted that the patient is a right lower extremities with swollen and red and warm compared to the left. The area that is involved is mainly below the knee reaching all the way to his ankle. There is area of superficial ulceration stage I. Pulses are equal and symmetrical bilaterally. There may be a area of cellulitis involving the right lower extremity. On 12/08/2017 I'm seeing this patient for a follow-up. He is improved and is much more awake and alert on today's evaluation. Is following commands and answering questions appropriately. He is diuresing adequately with IV Lasix. He remains in a negative fluid balance. His creatinine is also improved is currently down to 1.98. Meanwhile, the patient was taken off the BiPAP yesterday evening and currently is on several liters of oxygen nasal cannula. His follow-up blood gases today showed improvement in the acid base status also it is not completely normalized. The blood gases showed a pH of 7.33 with a pCO2 of 64 and pO2 of 91. This was done on high flow oxygen. The patient has no chest pain. No respiratory difficulties. No cough or sputum production. Moving all 4 extremities. He is requesting diet. There is been no other significant events overnight. As for the right lower extremity, the findings are essentially the same. The patient had a traumatic ankle injury. No evidence of any acute synovitis at this point and I feel cellulitis is likely Objective - Vital Signs Vital signs: Vital Signs Temp 98 F 12/08/17 08:00 Pulse 72 12/08/17 11:00 Resp 12 12/08/17 11:00 BP 138/75 12/08/17 11:00 Pulse Ox 94 L 12/08/17 11:00 Intake & Output 12/07/17 12/08/17 12/08/17 18:59 06:59 18:59 Intake Total 300 850 100 Output Total 1770 2290 760 Balance -1470 -1440 -660 Weight 134 kg Intake: IV 300 220 100 Sodium Chloride 0.9% 1, 100 000 ml @ 100 mls/hr IV . Q10H STA Rx#:[id number] Sodium Chloride 0.9% 1, 200 220 100 000 ml @ 20 mls/hr IV . Q24H GARIMA Rx#:[id number] Oral 630 Output: Urine 1770 2290 760 Other: Voiding Method Indwelling Catheter Indwelling Catheter Indwelling Catheter - Exam Patient is calm and comfortable on high flow oxygen. No apparent respiratory distress. He opens his eyes to repeated stimulation. Does not follow commands yet.Head exam was generally normal. There was no scleral icterus or corneal arcus. Mucous membranes were moist.Neck was supple and without jugular venous distension, thyromegaly, or carotid bruits. Carotids were easily palpable bilaterally. There was no adenopathy. Lung sounds are diminished bilaterally along with some few scattered expiratory wheezes. Heart sounds are regular, positive S1-S2 and there is no significant murmurs.Cardiac exam revealed the PMI to be normally situated and sized. The rhythm was regular and no extrasystoles were noted during several minutes of auscultation. The first and second heart sounds were normal and physiologic splitting of the second heart sound was noted. There were no murmurs, rubs, clicks, or gallops.Abdominal exam revealed normal bowel sounds. The abdomen was soft, non-tender, and without masses, organomegaly, or appreciable enlargement of the abdominal aorta. Extremities shows some erythema and warmth in the right lower extremities. Ankle and the knee mainly anteriorly and there is an area of superficial ulceration stage I. Equal and symmetrical pulses bilaterally. No cyanosis or clubbing. Psychiatric history cannot be obtained. Skeletal examination the patient has a ankle sprain in the right lower extremity/ankle area. No obvious deformities neurologically the patient is awake and alert and is following commands and answering questions appropriately. - Labs CBC & Chem 7: 12/08/17 04:30 12/08/17 04:30 Labs: Abnormal Lab Results - Last 24 Hours (Table) 12/07/17 12/07/17 12/07/17 Range/Units 11:25 12:59 16:32 WBC (3.8-10.6) k/uL MCHC (31.0-37.0) g/dL RDW (11.5-15.5) % Neutrophils # (1.3-7.7) k/uL ABG pH 7.24 L (7.35-7.45) ABG pCO2 76 H* (35-45) mmHg ABG pO2 69 L (83-108) mmHg ABG HCO3 32 H (21-25) mmol/L ABG Total CO2 35 H (19-24) mmol/L ABG O2 Saturation 92.0 L (94-97) % Potassium (3.5-5.1) mmol/L BUN (9-20) mg/dL Creatinine (0.66-1.25) mg/dL Glucose (74-99) mg/dL POC Glucose (mg/dL) 155 H 134 H (75-99) mg/dL LDL Cholesterol, Calc (0-99) mg/dL HDL Cholesterol (40-60) mg/dL 12/07/17 12/07/17 12/08/17 Range/Units 18:12 19:55 00:27 WBC (3.8-10.6) k/uL MCHC (31.0-37.0) g/dL RDW (11.5-15.5) % Neutrophils # (1.3-7.7) k/uL ABG pH 7.29 L (7.35-7.45) ABG pCO2 67 H (35-45) mmHg ABG pO2 80 L (83-108) mmHg ABG HCO3 32 H (21-25) mmol/L ABG Total CO2 34 H (19-24) mmol/L ABG O2 Saturation (94-97) % Potassium (3.5-5.1) mmol/L BUN (9-20) mg/dL Creatinine (0.66-1.25) mg/dL Glucose (74-99) mg/dL POC Glucose (mg/dL) 190 H 190 H (75-99) mg/dL LDL Cholesterol, Calc (0-99) mg/dL HDL Cholesterol (40-60) mg/dL 12/08/17 12/08/17 12/08/17 Range/Units 04:19 04:30 04:30 WBC 10.8 H (3.8-10.6) k/uL MCHC 30.0 L (31.0-37.0) g/dL RDW 15.7 H (11.5-15.5) % Neutrophils # 9.3 H (1.3-7.7) k/uL ABG pH (7.35-7.45) ABG pCO2 (35-45) mmHg ABG pO2 (83-108) mmHg ABG HCO3 (21-25) mmol/L ABG Total CO2 (19-24) mmol/L ABG O2 Saturation (94-97) % Potassium 5.3 H (3.5-5.1) mmol/L BUN 50 H (9-20) mg/dL Creatinine 1.98 H (0.66-1.25) mg/dL Glucose 138 H (74-99) mg/dL POC Glucose (mg/dL) 150 H (75-99) mg/dL LDL Cholesterol, Calc 132 H (0-99) mg/dL HDL Cholesterol 34 L (40-60) mg/dL 12/08/17 12/08/17 Range/Units 05:09 08:00 WBC (3.8-10.6) k/uL MCHC (31.0-37.0) g/dL RDW (11.5-15.5) % Neutrophils # (1.3-7.7) k/uL ABG pH 7.33 L (7.35-7.45) ABG pCO2 64 H (35-45) mmHg ABG pO2 (83-108) mmHg ABG HCO3 34 H (21-25) mmol/L ABG Total CO2 36 H (19-24) mmol/L ABG O2 Saturation 97.1 H (94-97) % Potassium (3.5-5.1) mmol/L BUN (9-20) mg/dL Creatinine (0.66-1.25) mg/dL Glucose (74-99) mg/dL POC Glucose (mg/dL) 149 H (75-99) mg/dL LDL Cholesterol, Calc (0-99) mg/dL HDL Cholesterol (40-60) mg/dL Assessment and Plan Plan: Assessment 1 acute hypoxic and hypercapnic respiratory failure on top of a chronic hypoxic and hypercapnic respiratory failure. The patient is improving and the chest x- ray is showing improvement in the volume status. The patient is been diuresed well on IV Lasix. The patient is been taken off the BiPAP and currently is on high flow oxygen. Acid base status also improved although there is still a component of acute hypoxic and respiratory acidosis on top of chronic failure. 2 altered mental status secondary to above. Neuro workup including a CAT scan of the brain and CT angios the neck is negative. Mental status improved and the patient is seen by neurology. EEG is in progress. 3 COPD 4 obstructive sleep apnea suspected 5 coronary artery disease with previous coronary intervention and stenting 6 CHF with an ejection fraction 40-45% 7 previous history of severe ischemic cardiomyopathy and the patient has an AICD in place 8 chronic renal failure with stage III chronic kidney disease and the patient has developed acute kidney injury on top of his chronic renal failure and the creatinine is up to 2.8. The patient is improving and the creatinine is down to 1.98. 9 diabetes mellitus, insulin-dependent with diabetic neuropathy and nephropathy 10 right ankle sprain 11 right lower extremity cellulitis suspected 12 hypertension 13 hyperlipidemia 14 depression/bipolar disorder Plan The patient will be kept on IV Lasix. Wean off the FiO2 as tolerated. On and off BiPAP as needed. Stop vancomycin. Continue Zosyn. Provide diet. Complete the neuro workup. Keep the patient ICU for another 24 hours. Overall condition is improving.
[2017-12-08 11:56] LABS: Glucose,Whole Blood 168 mg/dL (75-99)
[2017-12-08] MEDS: SODIUM CHLORIDE 0.9% 1,000 ML IV SCH (11:58)
--- NOTE | 2017-12-08 13:38 | EEG ---
ELECTROENCEPHALOGRAM REPORT DATE OF EE12/08/2017. REFERRING PHYSICIAN: Dr. Regalado. CONSULTING AND INTERPRETING PHYSICIAN: Dr. Bita Alva MD. ELECTROENCEPHALOGRAPHIC EXAMINATION REPORT: INDICATION FOR EXAMINATION: This patient is a 57-year-old male being evaluated for hypoxic encephalopathy secondary to respiratory failure. AGE: [age]. EEG FINDINGS: A routine 21 channel awake digital EEG recording was accomplished utilizing the 10-20 international system with bipolar and referential montages. The background activity in the most alert resting state consists of a low to medium amplitude, poorly developed and poorly sustained 5 Hz activity over the posterior head regions. This posterior rhythm attenuates minimally to eye opening. There is a small amount of low amplitude 18-20 Hz beta activity seen maximally over the anterior head regions. Muscle and movement artifact was observed on a few occasions during the tracing. Hyperventilation was not performed. Photic stimulation at flash frequencies of 2-30 Hz produced a minimal occipital driving response. No epileptiform discharges were seen. IMPRESSION: This EEG gives evidence of a severe widespread diffuse disturbance in cerebral function. The EEG failed to reveal any focal, lateralized, or epileptiform abnormalities. If clinically indicated, a followup EEG is recommended. Clinical correlation is recommended. MMODL / IJN: [id number] /
--- NOTE | 2017-12-08 15:25 | P.PN ---
Subjective Progress Note Date: 12/08/17 No acute events overnight. Patient still requiring oxygen. He is off BiPAP. He is sleepy when I saw her today. Objective - Vital Signs Vital signs: Vital Signs Temp 97.7 F 12/08/17 12:00 Pulse 70 12/08/17 14:00 Resp 13 12/08/17 14:00 BP 147/73 12/08/17 14:00 Pulse Ox 92 L 12/08/17 14:00 Intake & Output 12/07/17 12/08/17 12/08/17 18:59 06:59 18:59 Intake Total 300 850 160 Output Total 1770 2290 1445 Balance -1470 -1440 -1285 Weight 134 kg Intake: IV 300 220 160 Sodium Chloride 0.9% 1, 100 000 ml @ 100 mls/hr IV . Q10H [facility]A Rx#:[id number] Sodium Chloride 0.9% 1, 200 220 160 000 ml @ 20 mls/hr IV . Q24H [facility] Rx#:[id number] Oral 630 Output: Urine 1770 2290 1445 Other: Voiding Method Indwelling Catheter Indwelling Catheter Indwelling Catheter - Exam General: The patient is awake and alert, in no distress Eye: there is normal conjunctiva bilaterally. Neck: The neck is supple, there is no JVD. Cardiovascular: Normal S1-S2, no S3-S4, no murmurs. Respiratory: Lungs clear to auscultation bilaterally Gastrointestinal: Abdomen is soft, nontender Musculoskeletal: There is no pedal edema. Neurological:. Speech is normal. Skin: Skin is warm and dry - Labs CBC & Chem 7: 12/08/17 04:30 12/08/17 04:30 Labs: Abnormal Lab Results - Last 24 Hours (Table) 12/07/17 12/07/17 12/07/17 Range/Units 16:32 18:12 19:55 WBC (3.8-10.6) k/uL MCHC (31.0-37.0) g/dL RDW (11.5-15.5) % Neutrophils # (1.3-7.7) k/uL ABG pH 7.29 L (7.35-7.45) ABG pCO2 67 H (35-45) mmHg ABG pO2 80 L (83-108) mmHg ABG HCO3 32 H (21-25) mmol/L ABG Total CO2 34 H (19-24) mmol/L ABG O2 Saturation (94-97) % Potassium (3.5-5.1) mmol/L BUN (9-20) mg/dL Creatinine (0.66-1.25) mg/dL Glucose (74-99) mg/dL POC Glucose (mg/dL) 134 H 190 H (75-99) mg/dL LDL Cholesterol, Calc (0-99) mg/dL HDL Cholesterol (40-60) mg/dL 12/08/17 12/08/17 12/08/17 Range/Units 00:27 04:19 04:30 WBC 10.8 H (3.8-10.6) k/uL MCHC 30.0 L (31.0-37.0) g/dL RDW 15.7 H (11.5-15.5) % Neutrophils # 9.3 H (1.3-7.7) k/uL ABG pH (7.35-7.45) ABG pCO2 (35-45) mmHg ABG pO2 (83-108) mmHg ABG HCO3 (21-25) mmol/L ABG Total CO2 (19-24) mmol/L ABG O2 Saturation (94-97) % Potassium (3.5-5.1) mmol/L BUN (9-20) mg/dL Creatinine (0.66-1.25) mg/dL Glucose (74-99) mg/dL POC Glucose (mg/dL) 190 H 150 H (75-99) mg/dL LDL Cholesterol, Calc (0-99) mg/dL HDL Cholesterol (40-60) mg/dL 12/08/17 12/08/17 12/08/17 Range/Units 04:30 05:09 08:00 WBC (3.8-10.6) k/uL MCHC (31.0-37.0) g/dL RDW (11.5-15.5) % Neutrophils # (1.3-7.7) k/uL ABG pH 7.33 L (7.35-7.45) ABG pCO2 64 H (35-45) mmHg ABG pO2 (83-108) mmHg ABG HCO3 34 H (21-25) mmol/L ABG Total CO2 36 H (19-24) mmol/L ABG O2 Saturation 97.1 H (94-97) % Potassium 5.3 H (3.5-5.1) mmol/L BUN 50 H (9-20) mg/dL Creatinine 1.98 H (0.66-1.25) mg/dL Glucose 138 H (74-99) mg/dL POC Glucose (mg/dL) 149 H (75-99) mg/dL LDL Cholesterol, Calc 132 H (0-99) mg/dL HDL Cholesterol 34 L (40-60) mg/dL 12/08/17 Range/Units 11:54 WBC (3.8-10.6) k/uL MCHC (31.0-37.0) g/dL RDW (11.5-15.5) % Neutrophils # (1.3-7.7) k/uL ABG pH (7.35-7.45) ABG pCO2 (35-45) mmHg ABG pO2 (83-108) mmHg ABG HCO3 (21-25) mmol/L ABG Total CO2 (19-24) mmol/L ABG O2 Saturation (94-97) % Potassium (3.5-5.1) mmol/L BUN (9-20) mg/dL Creatinine (0.66-1.25) mg/dL Glucose (74-99) mg/dL POC Glucose (mg/dL) 168 H (75-99) mg/dL LDL Cholesterol, Calc (0-99) mg/dL HDL Cholesterol (40-60) mg/dL Assessment and Plan Assessment: 1. Acute hypoxic and hypercapnic respiratory failure with known chronic hypoxic and hypercapnic respiratory failure. Underlying to acute COPD and CHF exacerbation. Patient is improving gradually. 2. Metabolic encephalopathy with Altered mental status changes secondary to the respiratory failure 3. Acute systolic congestive heart failure with a known EF of 40-45%. Started on IV Lasix. Echo pending 4. Right leg cellulitis . continue antibiotics. Venous Doppler negative for DVT 5. Acute on chronic renal failure, stage III. Continue to monitor. 6. History of severe ischemic heart myopathy status post AICD 7. History of coronary artery disease with cardiac stents 8. Diabetes mellitus, insulin-dependent continue sliding scale coverage 9. Acute COPD exacerbation: Currently on IV Solu-Medrol and bronchodilators 10. Essential hypertension 11. Right ankle sprain 12. History of bipolar 13. Hyperlipidemia Appreciate intelligence consultant's recommendations. Continue ICU care.
[2017-12-08 16:20] LABS: Glucose,Whole Blood 184 mg/dL (75-99)
--- NOTE | 2017-12-08 16:31 | P.PN ---
Subjective Progress Note Date: 12/08/17 This patient is a 57-year-old male who is seen today in the intensive care unit following episode of altered mental status and hypoxia. He was on BiPAP yesterday for treatment of respiratory failure. He is doing better today and is on high flow oxygen. He underwent computed tomography scan of the brain and CT angiogram head and neck both of which came back normal on admission. He was able to complete a routine EEG today which was reviewed and is significantly slow consistent with a hypoxic encephalopathy. Patient is more awake and alert today and does answer some questions appropriately. His creatinine is improved and is down to 1.98. He has evidence of a acute hypoxic and hypercapnic respiratory failure which is slowly improving. Pulmonary medicine is monitoring his condition very closely. Patient does have history of underlying congestive heart failure with ejection fraction of 40-45%. He denies any shortness of breath this morning. He does have history of severe ischemic cardiomyopathy and has had AICD placement in the past. We will continue close neurological follow-up for this patient in the intensive care unit. We have discussed the results of the EEG today with the patient in detail. As noted his mental status is much improved from yesterday. He has evidence of underlying hypoxic encephalopathy which is slowly improving. We may consider a follow-up EEG depending on his progress over the next few days. We will continue close neurological follow-up with this patient in the intensive care unit. Objective - Vital Signs Vital signs: Vital Signs Temp 97.7 F 12/08/17 12:00 Pulse 70 12/08/17 14:00 Resp 13 12/08/17 14:00 BP 147/73 12/08/17 14:00 Pulse Ox 92 L 12/08/17 14:00 Intake & Output 12/07/17 12/08/17 12/08/17 18:59 06:59 18:59 Intake Total 300 850 160 Output Total 1770 2290 1445 Balance -1470 -1440 -1285 Weight 134 kg Intake: IV 300 220 160 Sodium Chloride 0.9% 1, 100 000 ml @ 100 mls/hr IV . Q10H [facility] Rx#:[id number] Sodium Chloride 0.9% 1, 200 220 160 000 ml @ 20 mls/hr IV . Q24H [facility] Rx#:[id number] Oral 630 Output: Urine 1770 2290 1445 Other: Voiding Method Indwelling Catheter Indwelling Catheter Indwelling Catheter - Exam Physical examination: PHYSICAL EXAMINATION: Patient is resting comfortably in bed. VITAL SIGNS: Blood pressure is [147/73]. Heart rate is [70]. Respiration is [14] . Temperature is [97.7]. HEENT: Head is atraumatic, neck is supple, there were no carotid bruits. CHEST: Lungs are clear to auscultation and percussion. CARDIAC: S1, S2 normal rate and rhythm. There is no murmur. ABDOMEN: Soft and nontender. Bowel sounds are present. EXTREMITIES: There is no pedal edema. Peripheral pulses are present. Neurological examination: Patient is more awake and alert today. He is following simple commands. He is moving all 4 extremities. Deep reflexes are 1+ and symmetric. Plantar responses flexor bilaterally. - Labs CBC & Chem 7: 12/08/17 04:30 12/08/17 04:30 Labs: Abnormal Lab Results - Last 24 Hours (Table) 12/07/17 12/07/17 12/07/17 Range/Units 16:32 18:12 19:55 WBC (3.8-10.6) k/uL MCHC (31.0-37.0) g/dL RDW (11.5-15.5) % Neutrophils # (1.3-7.7) k/uL ABG pH 7.29 L (7.35-7.45) ABG pCO2 67 H (35-45) mmHg ABG pO2 80 L (83-108) mmHg ABG HCO3 32 H (21-25) mmol/L ABG Total CO2 34 H (19-24) mmol/L ABG O2 Saturation (94-97) % Potassium (3.5-5.1) mmol/L BUN (9-20) mg/dL Creatinine (0.66-1.25) mg/dL Glucose (74-99) mg/dL POC Glucose (mg/dL) 134 H 190 H (75-99) mg/dL LDL Cholesterol, Calc (0-99) mg/dL HDL Cholesterol (40-60) mg/dL 12/08/17 12/08/17 12/08/17 Range/Units 00:27 04:19 04:30 WBC 10.8 H (3.8-10.6) k/uL MCHC 30.0 L (31.0-37.0) g/dL RDW 15.7 H (11.5-15.5) % Neutrophils # 9.3 H (1.3-7.7) k/uL ABG pH (7.35-7.45) ABG pCO2 (35-45) mmHg ABG pO2 (83-108) mmHg ABG HCO3 (21-25) mmol/L ABG Total CO2 (19-24) mmol/L ABG O2 Saturation (94-97) % Potassium (3.5-5.1) mmol/L BUN (9-20) mg/dL Creatinine (0.66-1.25) mg/dL Glucose (74-99) mg/dL POC Glucose (mg/dL) 190 H 150 H (75-99) mg/dL LDL Cholesterol, Calc (0-99) mg/dL HDL Cholesterol (40-60) mg/dL 12/08/17 12/08/17 12/08/17 Range/Units 04:30 05:09 08:00 WBC (3.8-10.6) k/uL MCHC (31.0-37.0) g/dL RDW (11.5-15.5) % Neutrophils # (1.3-7.7) k/uL ABG pH 7.33 L (7.35-7.45) ABG pCO2 64 H (35-45) mmHg ABG pO2 (83-108) mmHg ABG HCO3 34 H (21-25) mmol/L ABG Total CO2 36 H (19-24) mmol/L ABG O2 Saturation 97.1 H (94-97) % Potassium 5.3 H (3.5-5.1) mmol/L BUN 50 H (9-20) mg/dL Creatinine 1.98 H (0.66-1.25) mg/dL Glucose 138 H (74-99) mg/dL POC Glucose (mg/dL) 149 H (75-99) mg/dL LDL Cholesterol, Calc 132 H (0-99) mg/dL HDL Cholesterol 34 L (40-60) mg/dL 12/08/17 Range/Units 11:54 WBC (3.8-10.6) k/uL MCHC (31.0-37.0) g/dL RDW (11.5-15.5) % Neutrophils # (1.3-7.7) k/uL ABG pH (7.35-7.45) ABG pCO2 (35-45) mmHg ABG pO2 (83-108) mmHg ABG HCO3 (21-25) mmol/L ABG Total CO2 (19-24) mmol/L ABG O2 Saturation (94-97) % Potassium (3.5-5.1) mmol/L BUN (9-20) mg/dL Creatinine (0.66-1.25) mg/dL Glucose (74-99) mg/dL POC Glucose (mg/dL) 168 H (75-99) mg/dL LDL Cholesterol, Calc (0-99) mg/dL HDL Cholesterol (40-60) mg/dL Assessment and Plan (1) Hypoxic encephalopathy Current Visit: Yes Status: Acute Code(s): G93.1 - ANOXIC BRAIN DAMAGE, NOT ELSEWHERE CLASSIFIED SNOMED Code(s): 654090829 (2) COPD exacerbation Current Visit: No Status: Acute Code(s): J44.1 - CHRONIC OBSTRUCTIVE PULMONARY DISEASE W (ACUTE) EXACERBATION SNOMED Code(s): 006034697688334 (3) Congestive heart failure (CHF) Current Visit: No Status: Acute Code(s): I50.9 - HEART FAILURE, UNSPECIFIED SNOMED Code(s): 73316768 (4) Respiratory failure Current Visit: No Status: Resolved Code(s): J96.90 - RESPIRATORY FAILURE, UNSP, UNSP W HYPOXIA OR HYPERCAPNIA SNOMED Code(s): 620319883 Plan: This patient is a 57-year-old male admitted to hospital with altered mental status and acute hypoxic and hypercapnic respiratory failure. Patient underwent computed tomography scan of the brain and CT angiogram of the head and neck both of which were negative. He is being followed closely in the intensive care unit. He was taken off of BiPAP yesterday and is now on high flow oxygen. His breathing symptoms have improved since admission. He underwent routine EEG today which revealed severe slowing consistent with a hypoxic encephalopathy. Mental status over clinically showing some improvement from yesterday. He has multiple other complex medical issues which are being closely monitored by pulmonary medicine. We reviewed the results of the EEG today with the patient in detail in the ICU. His overall mental status is gradually improving. He is much more awake and alert and able to answer simple questions. We will continue to monitor his progress closely in the intensive care unit. His overall prognosis at this time remains guarded.
[2017-12-08 20:03] LABS: Glucose,Whole Blood 208 mg/dL (75-99)
[2017-12-08] MEDS: traZODone HCL 100 MG TAB PO SCH (22:12)
[2017-12-08] MEDS: QUEtiapine 200 MG TAB PO SCH (22:12)
[2017-12-09 01:14] LABS: Glucose,Whole Blood 174 mg/dL (75-99)
[2017-12-09] MEDS: hydrALAZINE HCL 25 MG TAB PO SCH ×4 (01:15→21:06)
[2017-12-09] MEDS: cloNIDine HCL 0.2 MG TAB PO SCH ×4 (01:15→21:06)
[2017-12-09] MEDS: INSULIN ASPART 100 UNIT/ML 1 ML 10 ML VIAL SQ SCH ×6 (01:15→21:06)
[2017-12-09] MEDS: methylPREDNISolone SOD SUCCI 125 MG/2 ML VIAL IV SCH ×2 (01:16→06:44)
[2017-12-09] MEDS: HEPARIN SODIUM,PORCINE 5,000 UNIT/ML 1 ML VIAL SQ SCH ×4 (01:16→23:36)
[2017-12-09 04:11] LABS: Glucose,Whole Blood 174 mg/dL (75-99)
[2017-12-09 05:19] LABS: Basophils % (A) 0 %; Eosinophils % (A) 0 %; HCT 49.8 % (39.0-53.0); HGB 15.2 gm/dL (13.0-17.5); Hypochromasia Slight; Lymphocytes # (A) 0.8 k/uL (1.0-4.8); Lymphocytes % (A) 6 %; MCH 28.4 pg (25.0-35.0); MCHC 30.6 g/dL (31.0-37.0); MCV 92.9 fL (80.0-100.0); Mean Platelet Volume 10.6; Monocytes # (A) 0.5 k/uL (0-1.0); Monocytes % (A) 4 %; Neutrophils # (A) 11.2 k/uL (1.3-7.7); Neutrophils % (A) 89 %; Platelet Count 177 k/uL (150-450); RBC 5.36 m/uL (4.30-5.90); RDW 15.8 % (11.5-15.5); WBC 12.5 k/uL (3.8-10.6)
[2017-12-09 05:25] LABS: ABG Base Excess 10.5 mmol/L; ABG HCO3 36 mmol/L (21-25); ABG Oxygen Saturation 92.8 % (94-97); ABG PCO2 62 mmHg (35-45); ABG PH 7.37 (7.35-7.45); ABG PO2 68 mmHg (83-108); ABG TCO2 38 mmol/L (19-24)
[2017-12-09 05:36] LABS: Calcium 9.2 mg/dL (8.4-10.2); Magnesium 2.1 mg/dL (1.6-2.3); Phosphorus 3.5 mg/dL (2.5-4.5); Potassium 4.9 mmol/L (3.5-5.1)
--- NOTE | 2017-12-09 07:22 | XR ---
EXAMINATION TYPE: XR chest 1V DATE OF EXAM: 12/09/2017 HISTORY: overload. REFERENCE: Previous study dated 12/08/2017. FINDINGS: A bipolar pacemaker remains in place on the left. The heart is enlarged. There is left basilar airspace disease is a left-sided effusion. There is mild vascular congestion. IMPRESSION: 1. CARDIOMEGALY AND VASCULAR CONGESTION. 2. LEFT BASILAR AIRSPACE DISEASE. 3. LEFT-SIDED PLEURAL EFFUSION. 4. NO SIGNIFICANT INTERVAL CHANGE IN THE APPEARANCE OF THE CHEST.
[2017-12-09 07:46] LABS: Glucose,Whole Blood 183 mg/dL (75-99)
[2017-12-09] MEDS: ESCITALOPRAM 10 MG TAB PO SCH (08:31)
[2017-12-09] MEDS: ASPIRIN 81 MG PO SCH (08:31)
[2017-12-09] MEDS: METOPROLOL TARTRATE 25 MG TAB PO SCH ×2 (08:32→21:06)
[2017-12-09] MEDS: FUROSEMIDE 10 MG/ML 4 ML VIAL IV SCH ×2 (08:32→21:06)
[2017-12-09] MEDS: GABAPENTIN 300 MG CAP PO SCH (08:32)
[2017-12-09] MEDS: PANTOPRAZOLE 40 MG/10 ML VIAL IVP SCH (08:33)
[2017-12-09] MEDS: IPRATROPIUM-ALBUTEROL 3 ML NEB INHALATION SCH ×4 (08:51→20:10)
[2017-12-09] MEDS: LEVOFLOXACIN 500 MG TAB PO SCH (09:53)
[2017-12-09] MEDS: PREGABALIN 75 MG CAP PO SCH ×2 (09:54→21:06)
[2017-12-09 11:38] LABS: Glucose,Whole Blood 174 mg/dL (75-99)
[2017-12-09] MEDS: SODIUM CHLORIDE 0.9% 1,000 ML IV SCH (11:38)
[2017-12-09] MEDS: amLODIPine 10 MG TAB PO SCH (11:39)
--- NOTE | 2017-12-09 12:16 | P.PN ---
Subjective Progress Note Date: 12/09/17 A 57-year-old woman patient will growth and reverse department because of altered mental status. The patient apparently was dizzy and he was off balance. He was having frequent falls. He was also confused and extremely weak. No further history could have been obtained. The patient was found to be in acute hypercapnic respiratory failure on top of chronic hypercapnic respiratory failure. He was placed on BiPAP. Neuro workup was done for his altered mentation including a CAT scan of the brain and the CT angios the neck both of them within normal limits. Chest x-ray showed a component of mild CHF. Patient was moved to the intensive care unit. Currently is on a BiPAP at a pressure of 18/10 cm of water with an FiO2 of 45%. The most recent blood gas showed a pH of 7.24 with a pCO2 of 76 and pO2 of 56. He is calm and comfortable. On examination diminished breath sounds bilaterally along with some scattered expiratory wheezes and for that reason the patient was placed on DuoNeb nebulized treatment [id number] on IV Solu Medrol. Hemodynamically , no hypotension and the patient is producing adequate amount of urine output. He is currently on 100 mL of normal saline and has produced more than a liter of urine output since he came to the intensive care unit. He has a component of acute kidney injury. His creatinine was 1.56 at time of discharge from the hospital on and currently is up to 2.8. Potassium level is at 5.6. Is showing sinus tachycardia with left anterior fascicular block and Q waves over the anterior leads probably old. Troponin is negative. His latest echocardiogram was done in 11/26/2017 and the patient was found to have an ejection fraction of 40-45% and there is no evidence of any pulmonary hypertension or valvular heart disease. Note that there was an echocardiogram was done back in 2016 showing severe LV dysfunction with an ejection fraction of less than 20% and it seems as the patient's [place] function is improved since. This patient was in the hospital on 11/25/2017 and he was discharged on 12/01/2017. During this time the patient was intubated and placed on a mechanical ventilator for respiratory failure. The patient had an acute kidney injury along with acute respiratory failure and acute rhabdomyolysis and he was discharged home. His outpatient pulmonary medications include [place] developed one inhalation a day, Ventolin rescue inhaler, and I'm not sure if he has any home CPAP or BiPAP. Noted that the patient is a right lower extremities with swollen and red and warm compared to the left. The area that is involved is mainly below the knee reaching all the way to his ankle. There is area of superficial ulceration stage I. Pulses are equal and symmetrical bilaterally. There may be a area of cellulitis involving the right lower extremity. On 12/08/2017 I'm seeing this patient for a follow-up. He is improved and is much more awake and alert on today's evaluation. Is following commands and answering questions appropriately. He is diuresing adequately with IV Lasix. He remains in a negative fluid balance. His creatinine is also improved is currently down to 1.98. Meanwhile, the patient was taken off the BiPAP yesterday evening and currently is on several liters of oxygen nasal cannula. His follow-up blood gases today showed improvement in the acid base status also it is not completely normalized. The blood gases showed a pH of 7.33 with a pCO2 of 64 and pO2 of 91. This was done on high flow oxygen. The patient has no chest pain. No respiratory difficulties. No cough or sputum production. Moving all 4 extremities. He is requesting diet. There is been no other significant events overnight. As for the right lower extremity, the findings are essentially the same. The patient had a traumatic ankle injury. No evidence of any acute synovitis at this point and I feel cellulitis is likely On 12/09/2017 the patient is wide awake communicating and answering questions appropriately. His been off the BiPAP and the follow-up blood gases from this morning shows a compensated chronic hypercapnic respiratory failure and acute respiratory acidosis is completely recovered. He still has some diminished breath on the lung bases along with some bibasilar crackles. He remains in a negative fluid balance. I would suggest continuing the diuretics for another 24 hours. No fever. No chills. No cough or sputum production. No chest pain. The right lower extremity shows some erythema. This is essentially traumatic in nature and there is no evidence of any DVT or active cellulitis and the patient is still on oral Levaquin 500 milligrams by mouth daily. The steroids will be also tapered. He is receiving Lasix 40 mg every 12 hours. Blood pressures under good control. Pain is under good control. He remains on a combination of Seroquel and trazodone at bedtime in addition to Lexapro. Objective - Vital Signs Vital signs: Vital Signs Temp 97.9 F 12/09/17 08:00 Pulse 67 12/09/17 11:48 Resp 14 12/09/17 11:00 BP 159/73 12/09/17 11:00 Pulse Ox 92 L 12/09/17 11:00 Intake & Output 12/08/17 12/09/17 12/09/17 18:59 06:59 18:59 Intake Total 260 610 100 Output Total 1815 1155 730 Balance -1555 -545 -630 Weight 131.4 kg Intake: IV 260 220 100 Sodium Chloride 0.9% 1, 260 220 100 000 ml @ 20 mls/hr IV . Q24H [facility] Rx#:[id number] Oral 390 Output: Urine 1815 1155 730 Other: Voiding Method Indwelling Catheter Indwelling Catheter Indwelling Catheter - Exam Patient is calm and comfortable on high flow oxygen. No apparent respiratory distress. He is communicating and the mental status is back to normal.. There was no scleral icterus or corneal arcus. Mucous membranes were moist.Neck was supple and without jugular venous distension, thyromegaly, or carotid bruits. Carotids were easily palpable bilaterally. There was no adenopathy. Lung sounds are diminished bilaterally along with some few scattered expiratory wheezes. Heart sounds are regular, positive S1-S2 and there is no significant murmurs.Cardiac exam revealed the PMI to be normally situated and sized. The rhythm was regular and no extrasystoles were noted during several minutes of auscultation. The first and second heart sounds were normal and physiologic splitting of the second heart sound was noted. There were no murmurs, rubs, clicks, or gallops.Abdominal exam revealed normal bowel sounds. The abdomen was soft, non-tender, and without masses, organomegaly, or appreciable enlargement of the abdominal aorta. Extremities shows some erythema and warmth in the right lower extremities. Ankle and the knee mainly anteriorly and there is an area of superficial ulceration stage I. Equal and symmetrical pulses bilaterally. No cyanosis or clubbing. Psychiatric history cannot be obtained. Skeletal examination the patient has a ankle sprain in the right lower extremity/ankle area. No obvious deformities neurologically the patient is awake and alert and is following commands and answering questions appropriately. His neurologic exam is nonfocal. Psychiatric to the patient has appropriate mood and affect. - Labs CBC & Chem 7: 12/09/17 04:20 12/09/17 04:20 Labs: Abnormal Lab Results - Last 24 Hours (Table) 12/08/17 12/08/17 12/09/17 Range/Units 16:17 20:01 01:10 WBC (3.8-10.6) k/uL MCHC (31.0-37.0) g/dL RDW (11.5-15.5) % Neutrophils # (1.3-7.7) k/uL Lymphocytes # (1.0-4.8) k/uL ABG pCO2 (35-45) mmHg ABG pO2 (83-108) mmHg ABG HCO3 (21-25) mmol/L ABG Total CO2 (19-24) mmol/L ABG O2 Saturation (94-97) % BUN (9-20) mg/dL Creatinine (0.66-1.25) mg/dL Glucose (74-99) mg/dL POC Glucose (mg/dL) 184 H 208 H 174 H (75-99) mg/dL 12/09/17 12/09/17 12/09/17 Range/Units 04:08 04:20 04:20 WBC 12.5 H (3.8-10.6) k/uL MCHC 30.6 L (31.0-37.0) g/dL RDW 15.8 H (11.5-15.5) % Neutrophils # 11.2 H (1.3-7.7) k/uL Lymphocytes # 0.8 L (1.0-4.8) k/uL ABG pCO2 (35-45) mmHg ABG pO2 (83-108) mmHg ABG HCO3 (21-25) mmol/L ABG Total CO2 (19-24) mmol/L ABG O2 Saturation (94-97) % BUN 46 H (9-20) mg/dL Creatinine 1.80 H (0.66-1.25) mg/dL Glucose 155 H (74-99) mg/dL POC Glucose (mg/dL) 174 H (75-99) mg/dL 12/09/17 12/09/17 12/09/17 Range/Units 05:20 07:44 11:37 WBC (3.8-10.6) k/uL MCHC (31.0-37.0) g/dL RDW (11.5-15.5) % Neutrophils # (1.3-7.7) k/uL Lymphocytes # (1.0-4.8) k/uL ABG pCO2 62 H (35-45) mmHg ABG pO2 68 L (83-108) mmHg ABG HCO3 36 H (21-25) mmol/L ABG Total CO2 38 H (19-24) mmol/L ABG O2 Saturation 92.8 L (94-97) % BUN (9-20) mg/dL Creatinine (0.66-1.25) mg/dL Glucose (74-99) mg/dL POC Glucose (mg/dL) 183 H 174 H (75-99) mg/dL Assessment and Plan Plan: Assessment 1 acute hypoxic and hypercapnic respiratory failure on top of a chronic hypoxic and hypercapnic respiratory failure. The patient is improving and the chest x- ray is showing improvement in the volume status. The patient is been diuresed well on IV Lasix. The patient is been taken off the BiPAP and currently is on high flow oxygen. Acid base status also improved and it normalized and inspect his baseline as the patient has a component of chronic hypercapnic respiratory failure. The blood gases from today showed a pH of 7.37 with a pCO2 of 62 and pO2 of 68 and this was done and FiO2 of 36%. He does have some residual crackles in the lung bases bilaterally. 2 altered mental status secondary to above. Neuro workup including a CAT scan of the brain and CT angios the neck is negative. Mental status improved patient is back to his baseline for now. The patient's EEG has been showing diffuse disturbance in cerebral function. At that is no evidence of any seizure activity. 3 COPD 4 obstructive sleep apnea suspected 5 coronary artery disease with previous coronary intervention and stenting 6 CHF with an ejection fraction 40-45% 7 previous history of severe ischemic cardiomyopathy and the patient has an AICD in place 8 chronic renal failure with stage III chronic kidney disease and the patient has developed acute kidney injury on top of his chronic renal failure and the creatinine is up to 2.8. The patient is improving and the creatinine is down to 1.8. 9 diabetes mellitus, insulin-dependent with diabetic neuropathy and nephropathy 10 right ankle sprain 11 right lower extremity cellulitis suspected 12 hypertension 13 hyperlipidemia 14 depression/bipolar disorder Plan Continue IV Lasix for another 24 hours. Taper Solu-Medrol. No need for BiPAP during the day and may still use overnight. Outpatient sleep study. Monitor renal function and patient's creatinine is stable. He came moved to [facility] with telemetry monitoring today.
--- NOTE | 2017-12-09 14:39 | P.PN ---
Subjective Patient is awake. No acute events overnight. Objective - Vital Signs Vital signs: Vital Signs Temp 97.5 F L 12/09/17 12:00 Pulse 63 12/09/17 14:00 Resp 12 12/09/17 14:00 BP 134/63 12/09/17 14:00 Pulse Ox 95 12/09/17 12:00 Intake & Output 12/08/17 12/09/17 12/09/17 18:59 06:59 18:59 Intake Total 260 610 640 Output Total 1815 1155 1055 Balance -1555 -545 -415 Weight 131.4 kg Intake: IV 260 220 140 Sodium Chloride 0.9% 1, 260 220 140 000 ml @ 20 mls/hr IV . Q24H [facility] Rx#:[id number] Oral 390 500 Output: Urine 1815 1155 1055 Other: Voiding Method Indwelling Catheter Indwelling Catheter Indwelling Catheter - Exam General: The patient is awake and alert, in no distress Eye: there is normal conjunctiva bilaterally. Neck: The neck is supple, there is no JVD. Cardiovascular: Normal S1-S2, no S3-S4, no murmurs. Respiratory: Lungs clear to auscultation bilaterally Gastrointestinal: Abdomen is soft, nontender Musculoskeletal: There is no pedal edema. Neurological:. Speech is normal. Skin: Skin is warm and dry - Labs CBC & Chem 7: 12/09/17 04:20 12/09/17 04:20 Labs: Abnormal Lab Results - Last 24 Hours (Table) 12/08/17 12/08/17 12/09/17 Range/Units 16:17 20:01 01:10 WBC (3.8-10.6) k/uL MCHC (31.0-37.0) g/dL RDW (11.5-15.5) % Neutrophils # (1.3-7.7) k/uL Lymphocytes # (1.0-4.8) k/uL ABG pCO2 (35-45) mmHg ABG pO2 (83-108) mmHg ABG HCO3 (21-25) mmol/L ABG Total CO2 (19-24) mmol/L ABG O2 Saturation (94-97) % BUN (9-20) mg/dL Creatinine (0.66-1.25) mg/dL Glucose (74-99) mg/dL POC Glucose (mg/dL) 184 H 208 H 174 H (75-99) mg/dL 12/09/17 12/09/17 12/09/17 Range/Units 04:08 04:20 04:20 WBC 12.5 H (3.8-10.6) k/uL MCHC 30.6 L (31.0-37.0) g/dL RDW 15.8 H (11.5-15.5) % Neutrophils # 11.2 H (1.3-7.7) k/uL Lymphocytes # 0.8 L (1.0-4.8) k/uL ABG pCO2 (35-45) mmHg ABG pO2 (83-108) mmHg ABG HCO3 (21-25) mmol/L ABG Total CO2 (19-24) mmol/L ABG O2 Saturation (94-97) % BUN 46 H (9-20) mg/dL Creatinine 1.80 H (0.66-1.25) mg/dL Glucose 155 H (74-99) mg/dL POC Glucose (mg/dL) 174 H (75-99) mg/dL 12/09/17 12/09/17 12/09/17 Range/Units 05:20 07:44 11:37 WBC (3.8-10.6) k/uL MCHC (31.0-37.0) g/dL RDW (11.5-15.5) % Neutrophils # (1.3-7.7) k/uL Lymphocytes # (1.0-4.8) k/uL ABG pCO2 62 H (35-45) mmHg ABG pO2 68 L (83-108) mmHg ABG HCO3 36 H (21-25) mmol/L ABG Total CO2 38 H (19-24) mmol/L ABG O2 Saturation 92.8 L (94-97) % BUN (9-20) mg/dL Creatinine (0.66-1.25) mg/dL Glucose (74-99) mg/dL POC Glucose (mg/dL) 183 H 174 H (75-99) mg/dL Assessment and Plan Assessment: 1. Acute hypoxic and hypercapnic respiratory failure with known chronic hypoxic and hypercapnic respiratory failure. Underlying to acute COPD and CHF exacerbation. Patient is improving gradually. 2. Metabolic encephalopathy with Altered mental status changes secondary to the respiratory failure 3. Acute systolic congestive heart failure with a known EF of 40-45%. Started on IV Lasix. Echo pending 4. Right leg cellulitis . continue antibiotics. Venous Doppler negative for DVT 5. Acute on chronic renal failure, stage III. Continue to monitor. 6. History of severe ischemic heart myopathy status post AICD 7. History of coronary artery disease with cardiac stents 8. Diabetes mellitus, insulin-dependent continue sliding scale coverage 9. Acute COPD exacerbation: Currently on IV Solu-Medrol and bronchodilators 10. Essential hypertension 11. Right ankle sprain 12. History of bipolar 13. Hyperlipidemia Appreciate [employer] security consultant's recommendations. Transfer to general practitioner
[2017-12-09 17:05] LABS: Glucose,Whole Blood 183 mg/dL (75-99)
--- NOTE | 2017-12-09 18:28 | P.PN ---
Subjective Progress Note Date: 12/09/17 This patient is a 57-year-old male who is seen today in the intensive care unit following episode of altered mental status and hypoxia. He was on BiPAP yesterday for treatment of respiratory failure. He is doing better today and is on high flow oxygen. He underwent computed tomography scan of the brain and CT angiogram head and neck both of which came back normal on admission. He was able to complete a routine EEG today which was reviewed and is significantly slow consistent with a hypoxic encephalopathy. Patient is more awake and alert today and does answer some questions appropriately. His creatinine is improved and is down to 1.98. He has evidence of a acute hypoxic and hypercapnic respiratory failure which is slowly improving. Pulmonary medicine is monitoring his condition very closely. Patient does have history of underlying congestive heart failure with ejection fraction of 40-45%. He denies any shortness of breath this morning. He does have history of severe ischemic cardiomyopathy and has had AICD placement in the past. We will continue close neurological follow-up for this patient in the intensive care unit. We have discussed the results of the EEG today with the patient in detail. As noted his mental status is much improved from yesterday. He has evidence of underlying hypoxic encephalopathy which is slowly improving. We may consider a follow-up EEG depending on his progress over the next few days. Clinically the patient is showing improvement in his overall mental status. His hypoxic respiratory status is improving as well. He is being transferred to the medical floor hopefully later today. We will continue close neurological follow -up with this patient in the intensive care unit. Objective - Vital Signs Vital signs: Vital Signs Temp 97.5 F L 12/09/17 12:00 Pulse 76 12/09/17 15:20 Resp 12 12/09/17 14:00 BP 134/63 12/09/17 14:00 Pulse Ox 95 12/09/17 12:00 Intake & Output 12/08/17 12/09/17 12/09/17 18:59 06:59 18:59 Intake Total 260 610 640 Output Total 1815 1155 1055 Balance -1555 -545 -415 Weight 131.4 kg Intake: IV 260 220 140 Sodium Chloride 0.9% 1, 260 220 140 000 ml @ 20 mls/hr IV . Q24H [facility] Rx#:[id number] Oral 390 500 Output: Urine 1815 1155 1055 Other: Voiding Method Indwelling Catheter Indwelling Catheter Indwelling Catheter - Exam Physical examination: PHYSICAL EXAMINATION: Patient is resting comfortably in bed. VITAL SIGNS: Blood pressure is [162/80]. Heart rate is [62]. Respiration is [12] . Temperature is [97.5]. HEENT: Head is atraumatic, neck is supple, there were no carotid bruits. CHEST: Lungs are clear to auscultation and percussion. CARDIAC: S1, S2 normal rate and rhythm. There is no murmur. ABDOMEN: Soft and nontender. Bowel sounds are present. EXTREMITIES: There is no pedal edema. Peripheral pulses are present. Neurological examination: Patient is more awake and alert today. He is following simple commands. He is moving all 4 extremities. Deep reflexes are 1+ and symmetric. Plantar responses flexor bilaterally. - Labs CBC & Chem 7: 12/09/17 04:20 12/09/17 04:20 Labs: Abnormal Lab Results - Last 24 Hours (Table) 12/08/17 12/08/17 12/09/17 Range/Units 16:17 20:01 01:10 WBC (3.8-10.6) k/uL MCHC (31.0-37.0) g/dL RDW (11.5-15.5) % Neutrophils # (1.3-7.7) k/uL Lymphocytes # (1.0-4.8) k/uL ABG pCO2 (35-45) mmHg ABG pO2 (83-108) mmHg ABG HCO3 (21-25) mmol/L ABG Total CO2 (19-24) mmol/L ABG O2 Saturation (94-97) % BUN (9-20) mg/dL Creatinine (0.66-1.25) mg/dL Glucose (74-99) mg/dL POC Glucose (mg/dL) 184 H 208 H 174 H (75-99) mg/dL 12/09/17 12/09/17 12/09/17 Range/Units 04:08 04:20 04:20 WBC 12.5 H (3.8-10.6) k/uL MCHC 30.6 L (31.0-37.0) g/dL RDW 15.8 H (11.5-15.5) % Neutrophils # 11.2 H (1.3-7.7) k/uL Lymphocytes # 0.8 L (1.0-4.8) k/uL ABG pCO2 (35-45) mmHg ABG pO2 (83-108) mmHg ABG HCO3 (21-25) mmol/L ABG Total CO2 (19-24) mmol/L ABG O2 Saturation (94-97) % BUN 46 H (9-20) mg/dL Creatinine 1.80 H (0.66-1.25) mg/dL Glucose 155 H (74-99) mg/dL POC Glucose (mg/dL) 174 H (75-99) mg/dL 12/09/17 12/09/17 12/09/17 Range/Units 05:20 07:44 11:37 WBC (3.8-10.6) k/uL MCHC (31.0-37.0) g/dL RDW (11.5-15.5) % Neutrophils # (1.3-7.7) k/uL Lymphocytes # (1.0-4.8) k/uL ABG pCO2 62 H (35-45) mmHg ABG pO2 68 L (83-108) mmHg ABG HCO3 36 H (21-25) mmol/L ABG Total CO2 38 H (19-24) mmol/L ABG O2 Saturation 92.8 L (94-97) % BUN (9-20) mg/dL Creatinine (0.66-1.25) mg/dL Glucose (74-99) mg/dL POC Glucose (mg/dL) 183 H 174 H (75-99) mg/dL Assessment and Plan (1) Hypoxic encephalopathy Current Visit: Yes Status: Acute Code(s): G93.1 - ANOXIC BRAIN DAMAGE, NOT ELSEWHERE CLASSIFIED SNOMED Code(s): 253888270 (2) COPD exacerbation Current Visit: No Status: Acute Code(s): J44.1 - CHRONIC OBSTRUCTIVE PULMONARY DISEASE W (ACUTE) EXACERBATION SNOMED Code(s): 250593613585803 (3) Congestive heart failure (CHF) Current Visit: No Status: Acute Code(s): I50.9 - HEART FAILURE, UNSPECIFIED SNOMED Code(s): 19023128 (4) Respiratory failure Current Visit: No Status: Resolved Code(s): J96.90 - RESPIRATORY FAILURE, UNSP, UNSP W HYPOXIA OR HYPERCAPNIA SNOMED Code(s): 838847699 Plan: This patient is a 57-year-old male admitted to hospital with altered mental status and acute hypoxic and hypercapnic respiratory failure. Patient underwent computed tomography scan of the brain and CT angiogram of the head and neck both of which were negative. He is being followed closely in the intensive care unit. He was taken off of BiPAP yesterday and is now on high flow oxygen. His breathing symptoms have improved since admission. He underwent routine EEG today which revealed severe slowing consistent with a hypoxic encephalopathy. Mental status over clinically showing some improvement from yesterday. He has multiple other complex medical issues which are being closely monitored by pulmonary medicine. We reviewed the results of the EEG today with the patient in detail in the ICU. His overall mental status is gradually improving. He is much more awake and alert and able to answer simple questions. We will continue to monitor his progress closely in the intensive care unit. He continues to show evidence of recovery following acute hypoxic and hypercapnic respiratory failure. His mental status is also much improved today. He is being transferred out of the intensive care unit to the medical floor later today. His overall prognosis at this time remains guarded. We will continue close neurological follow-up with this patient during this admission.
[2017-12-09 20:37] LABS: Glucose,Whole Blood 192 mg/dL (75-99)
[2017-12-09] MEDS: methylPREDNISolone SOD SUCCI 40 MG/ML 1 ML VIAL IV SCH (21:06)
[2017-12-09] MEDS: traZODone HCL 100 MG TAB PO SCH (21:06)
[2017-12-09] MEDS: QUEtiapine 200 MG TAB PO SCH (21:06)
[2017-12-09 22:51] VITALS: RESP 18
[2017-12-10 02:38] LABS: Glucose,Whole Blood 198 mg/dL (75-99)
[2017-12-10 07:00] LABS: Glucose,Whole Blood 240 mg/dL (75-99)
[2017-12-10] MEDS: INSULIN ASPART 100 UNIT/ML 1 ML 10 ML VIAL SQ SCH ×4 (07:47→20:59)
[2017-12-10] MEDS: HEPARIN SODIUM,PORCINE 5,000 UNIT/ML 1 ML VIAL SQ SCH ×3 (07:47→23:07)
[2017-12-10] MEDS: PREGABALIN 75 MG CAP PO SCH ×2 (07:47→20:59)
[2017-12-10] MEDS: FUROSEMIDE 10 MG/ML 4 ML VIAL IV SCH ×2 (07:48→20:58)
[2017-12-10] MEDS: METOPROLOL TARTRATE 25 MG TAB PO SCH ×2 (07:48→20:28)
[2017-12-10] MEDS: PANTOPRAZOLE 40 MG/10 ML VIAL IVP SCH (07:48)
[2017-12-10] MEDS: methylPREDNISolone SOD SUCCI 40 MG/ML 1 ML VIAL IV SCH ×2 (07:48→20:27)
[2017-12-10] MEDS: cloNIDine HCL 0.2 MG TAB PO SCH ×3 (07:49→20:28)
[2017-12-10] MEDS: amLODIPine 10 MG TAB PO SCH (07:49)
[2017-12-10] MEDS: ASPIRIN 81 MG PO SCH (07:49)
[2017-12-10] MEDS: LEVOFLOXACIN 500 MG TAB PO SCH (07:49)
[2017-12-10] MEDS: ESCITALOPRAM 10 MG TAB PO SCH (07:49)
[2017-12-10] MEDS: GABAPENTIN 300 MG CAP PO SCH (07:51)
[2017-12-10] MEDS: hydrALAZINE HCL 25 MG TAB PO SCH ×3 (07:51→20:59)
[2017-12-10] MEDS: IPRATROPIUM-ALBUTEROL 3 ML NEB INHALATION SCH ×4 (08:34→21:19)
[2017-12-10 09:09] LABS: Anisocytosis Slight; Basophils % (A) 0 %; Eosinophils # (A) 0.1 k/uL (0-0.7); Eosinophils % (A) 1 %; HCT 51.1 % (39.0-53.0); Hypochromasia Slight; Lymphocytes # (A) 1.1 k/uL (1.0-4.8); Lymphocytes % (A) 11 %; MCH 29.1 pg (25.0-35.0); MCHC 31.2 g/dL (31.0-37.0); MCV 93.1 fL (80.0-100.0); Mean Platelet Volume 9.1; Monocytes # (A) 0.5 k/uL (0-1.0); Monocytes % (A) 4 %; Neutrophils % (A) 83 %; Platelet Count 161 k/uL (150-450); RBC 5.49 m/uL (4.30-5.90); WBC 10.8 k/uL (3.8-10.6)
[2017-12-10 09:26] LABS: Calcium 8.6 mg/dL (8.4-10.2); Phosphorus 4.5 mg/dL (2.5-4.5); Potassium 4.5 mmol/L (3.5-5.1)
[2017-12-10] MEDS: SODIUM CHLORIDE 0.9% 1,000 ML IV SCH (11:29)
--- NOTE | 2017-12-10 12:15 | P.PN ---
Subjective Progress Note Date: 12/10/17 Principal diagnosis: Acute on chronic hypercapnic and hypoxic respiratory failure. A 57-year-old male, brought in to the emergency department because of altered mental status. The patient apparently was dizzy and he was off balance. He was having frequent falls. He was also confused and extremely weak. No further history could have been obtained. The patient was found to be in acute hypercapnic respiratory failure on top of chronic hypercapnic respiratory failure. He was placed on BiPAP. Neuro workup was done for his altered mentation including a CAT scan of the brain and the CT angios the neck both of them within normal limits. Chest x-ray showed a component of mild CHF. Patient was moved to the intensive care unit. Currently is on a BiPAP at a pressure of 18/10 cm of water with an FiO2 of 45%. The most recent blood gas showed a pH of 7.24 with a pCO2 of 76 and pO2 of 56. He is calm and comfortable. On examination diminished breath sounds bilaterally along with some scattered expiratory wheezes and for that reason the patient was placed on DuoNeb nebulized treatment [id number] on IV Solu Medrol. Hemodynamically , no hypotension and the patient is producing adequate amount of urine output. He is currently on 100 mL of normal saline and has produced more than a liter of urine output since he came to the intensive care unit. He has a component of acute kidney injury. His creatinine was 1.56 at time of discharge from the hospital on and currently is up to 2.8. Potassium level is at 5.6. Is showing sinus tachycardia with left anterior fascicular block and Q waves over the anterior leads probably old. Troponin is negative. His latest echocardiogram was done in 11/26/2017 and the patient was found to have an ejection fraction of 40-45% and there is no evidence of any pulmonary hypertension or valvular heart disease. This patient was in the hospital on and he was discharged on 12/01/2017. During this time the patient was intubated and placed on a mechanical ventilator for respiratory failure. The patient had an acute kidney injury along with acute respiratory failure and acute rhabdomyolysis and he was discharged home. His outpatient pulmonary medications include [place] developed one inhalation a day, Ventolin rescue inhaler, and I'm not sure if he has any home CPAP or BiPAP. Noted that the patient is a right lower extremities with swollen and red and warm compared to the left. The area that is involved is mainly below the knee reaching all the way to his ankle. There is area of superficial ulceration stage I. Pulses are equal and symmetrical bilaterally. There may be a area of cellulitis involving the right lower extremity. On 12/08/2017 I'm seeing this patient for a follow-up. He is improved and is much more awake and alert on today's evaluation. Is following commands and answering questions appropriately. He is diuresing adequately with IV Lasix. He remains in a negative fluid balance. His creatinine is also improved is currently down to 1.98. Meanwhile, the patient was taken off the BiPAP yesterday evening and currently is on several liters of oxygen nasal cannula. His follow-up blood gases today showed improvement in the acid base status also it is not completely normalized. The blood gases showed a pH of 7.33 with a pCO2 of 64 and pO2 of 91. This was done on high flow oxygen. The patient has no chest pain. No respiratory difficulties. No cough or sputum production. Moving all 4 extremities. He is requesting diet. There is been no other significant events overnight. As for the right lower extremity, the findings are essentially the same. The patient had a traumatic ankle injury. No evidence of any acute synovitis at this point and I feel cellulitis is likely On 12/09/2017 the patient is wide awake communicating and answering questions appropriately. His been off the BiPAP and the follow-up blood gases from this morning shows a compensated chronic hypercapnic respiratory failure and acute respiratory acidosis is completely recovered. He still has some diminished breath on the lung bases along with some bibasilar crackles. He remains in a negative fluid balance. I would suggest continuing the diuretics for another 24 hours. No fever. No chills. No cough or sputum production. No chest pain. The right lower extremity shows some erythema. This is essentially traumatic in nature and there is no evidence of any DVT or active cellulitis and the patient is still on oral Levaquin 500 milligrams by mouth daily. The steroids will be also tapered. He is receiving Lasix 40 mg every 12 hours. Blood pressures under good control. Pain is under good control. He remains on a combination of Seroquel and trazodone at bedtime in addition to Lexapro. Reevaluated today on 12/10/2017, patient is now on nasal cannula, in no distress. Feels great, alert oriented 3, denies any shortness of breath. Remains on multiple meds including diuretics and bronchodilators. ABC is relatively normal , basic metabolic profile is normal bicarb is 32 BUN is 46 creatinine is 1.54. Patient denies shortness of breath, no chest pain, no cough, no wheezing. Objective - Vital Signs Vital signs: Vital Signs Temp 97.0 F L 12/10/17 07:00 Pulse 76 12/10/17 12:02 Resp 18 12/10/17 07:00 BP 143/78 12/10/17 07:00 Pulse Ox 98 12/10/17 08:36 Intake & Output 12/09/17 12/10/17 12/10/17 18:59 06:59 18:59 Intake Total 640 800 480 Output Total 1055 1650 475 Balance -415 -850 5 Intake: IV 140 Sodium Chloride 0.9% 1, 140 000 ml @ 20 mls/hr IV . Q24H [facility] Rx#:[id number] Oral 500 800 480 Output: Urine 1055 1650 475 Other: Voiding Method Indwelling Catheter Urinal # Bowel Movements 0 - Exam Physical Exam revealed a 57-year-old male in no distress. Very pleasant, HEENT:[Neck is supple.] [No neck masses.] [No thyromegaly.] [No JVD.] Chest: [Clear throughout, no crackles, no rhonchi, no wheezes.] Cardiac Exam: [Normal S1 and S2, no S3 gallop, no murmur.] Abdomen: [Soft, nontender, no megaly, no rebound, no guarding, normal bowel sounds.] Extremities: [No clubbing, no edema, no cyanosis.] Neurological Exam: [No focal neurologic deficit. Psychiatric: Normal mood affect and mental status exam Lymphatics: No lymphadenopathy.] - Labs CBC & Chem 7: 12/10/17 08:47 12/10/17 08:47 Labs: Abnormal Lab Results - Last 24 Hours (Table) 12/09/17 12/09/17 12/10/17 Range/Units 17:02 20:27 02:34 WBC (3.8-10.6) k/uL RDW (11.5-15.5) % Neutrophils # (1.3-7.7) k/uL Carbon Dioxide (22-30) mmol/L BUN (9-20) mg/dL Creatinine (0.66-1.25) mg/dL Glucose (74-99) mg/dL POC Glucose (mg/dL) 183 H 192 H 198 H (75-99) mg/dL 12/10/17 12/10/17 12/10/17 Range/Units 06:54 08:47 08:47 WBC 10.8 H (3.8-10.6) k/uL RDW 16.0 H (11.5-15.5) % Neutrophils # 9.0 H (1.3-7.7) k/uL Carbon Dioxide 32 H (22-30) mmol/L BUN 46 H (9-20) mg/dL Creatinine 1.54 H (0.66-1.25) mg/dL Glucose 210 H (74-99) mg/dL POC Glucose (mg/dL) 240 H (75-99) mg/dL Assessment and Plan Assessment: Impression: 1Acute on chronic hypoxic and hypercapnic respiratory failure secondary to COPD and chronic systolic congestive heart failure. 2 altered mental status secondary to above. Resolved, mental status is intact today. 3 COPD, with acute exacerbation. 4 obstructive sleep apnea suspected 5 coronary artery disease with previous coronary intervention and stenting 6 CHF with an ejection fraction 40-45% 7 previous history of severe ischemic cardiomyopathy and the patient has an AICD in place 8 chronic renal failure with stage III chronic kidney disease and the patient has developed acute kidney injury on top of his chronic renal failure and the creatinine is up to 2.8. The patient is improving and the creatinine is down to 1.8. 9 diabetes mellitus, insulin-dependent with diabetic neuropathy and nephropathy 10 right ankle sprain 11 right lower extremity cellulitis suspected 12 hypertension 13 hyperlipidemia 14 depression/bipolar disorder Recommendation: Continue present treatment plan, consider discharge planning, follow-up on outpatient basis, patient will likely need a sleep study to be done on outpatient basis. Patient will likely benefit from BiPAP at home eventually. Time with Patient: Less than 30
[2017-12-10 12:47] LABS: Glucose,Whole Blood 181 mg/dL (75-99)
--- NOTE | 2017-12-10 14:02 | P.PN ---
Subjective Progress Note Date: 12/10/17 This is a 57-year-old male with a known history of coronary artery disease with cardiac stent, ischemic cardiomyopathy status post AICD, chronic kidney disease , diabetes mellitus, congestive heart failure, COPD, hyperlipidemia, hypertension, myocardial infarction and bipolar. Patient was just recently hospitalized at [facility] and discharged on December 01 after onset of respiratory failure in which she had required to be intubated. Also had evidence of pneumonia and acute rhabdomyolysis with acute kidney injury during that admission. Patient presented to the emergency room because of altered mental status changes and being off of balance. He was having frequent falls. Patient went into respiratory failure in the ER was placed on BiPAP and admitted to the ICU. Pulmonary service and neurology service was consulted. Computed tomography scan the brain shows no acute changes. CT of the head and neck shows no evidence of carotid stenosis. There was a possible right vertebral stenosis. EKG had shown sinus tach heart cardiac heart rate of 111. Chest x-ray did show findings of mild congestive heart failure. Urinalysis was negative. Drug screen was positive for tricyclic antidepressant. Patient has evidence of cellulitis of the right lower extremity. His last admission he was seen by orthopedics for right ankle sprain and was given boot. When that leg is moved patient responds to pain. Otherwise he is unresponsive. There is evidence of cellulitis and swelling in that leg. Venous Doppler was negative for DVT. Patient has been seen by pulmonary service they have added IV steroids , IV Lasix and antibiotics. 12/10/2017 patient is showing improvement. He was able to be transferred out of the ICU yesterday. He has been seen by pulmonary service they have cleared him for discharge. We will also have patient evaluated by cardiology in regards to his congestive heart failure and to review of patient needs any further adjustments in meds or any further cardiac workup. Patient is eager for discharge home. He denies any chest pain or shortness breath. Denies any nausea or vomiting. Reports improvement in his right leg. Denies any burning with urination. Apparently patient has been noncompliant with the BiPAP and evening. And pulmonary is recommending a sleep study as outpatient. Patient may have even been noncompliant with BiPAP at home in the past. Objective - Vital Signs Vital signs: Vital Signs Temp 97.0 F L 12/10/17 07:00 Pulse 76 12/10/17 12:02 Resp 18 12/10/17 07:00 BP 143/78 12/10/17 07:00 Pulse Ox 98 12/10/17 08:36 Intake & Output 12/09/17 12/10/17 12/10/17 18:59 06:59 18:59 Intake Total 640 800 960 Output Total 1055 1650 475 Balance -415 -850 485 Intake: IV 140 Sodium Chloride 0.9% 1, 140 000 ml @ 20 mls/hr IV . Q24H [facility] Rx#:[id number] Oral 500 800 960 Output: Urine 1055 1650 475 Other: Voiding Method Indwelling Catheter Urinal # Bowel Movements 0 - Exam Head normocephalic Neck supple Lungs clear to auscultation bilaterally no wheezing or crackles Heart regular rate and rhythm S1-S2, no rub or gallop Abdomen is soft nontender nondistended positive bowel sounds no hepatosplenomegaly Extremities no edema Neuro alert and orientated to 3 - Labs CBC & Chem 7: 12/10/17 08:47 12/10/17 08:47 Labs: Abnormal Lab Results - Last 24 Hours (Table) 12/09/17 12/09/17 12/10/17 Range/Units 17:02 20:27 02:34 WBC (3.8-10.6) k/uL RDW (11.5-15.5) % Neutrophils # (1.3-7.7) k/uL Carbon Dioxide (22-30) mmol/L BUN (9-20) mg/dL Creatinine (0.66-1.25) mg/dL Glucose (74-99) mg/dL POC Glucose (mg/dL) 183 H 192 H 198 H (75-99) mg/dL 12/10/17 12/10/17 12/10/17 Range/Units 06:54 08:47 08:47 WBC 10.8 H (3.8-10.6) k/uL RDW 16.0 H (11.5-15.5) % Neutrophils # 9.0 H (1.3-7.7) k/uL Carbon Dioxide 32 H (22-30) mmol/L BUN 46 H (9-20) mg/dL Creatinine 1.54 H (0.66-1.25) mg/dL Glucose 210 H (74-99) mg/dL POC Glucose (mg/dL) 240 H (75-99) mg/dL 12/10/17 Range/Units 12:39 WBC (3.8-10.6) k/uL RDW (11.5-15.5) % Neutrophils # (1.3-7.7) k/uL Carbon Dioxide (22-30) mmol/L BUN (9-20) mg/dL Creatinine (0.66-1.25) mg/dL Glucose (74-99) mg/dL POC Glucose (mg/dL) 181 H (75-99) mg/dL Assessment and Plan Assessment: 1. Acute hypoxic and hypercapnic respiratory failure with known chronic hypoxic and hypercapnic respiratory failure. Likely Secondary to CHF or COPD exacerbation. Patient is off of BiPAP and currently on 4 L nasal cannula. Pulmonary is cleared patient for discharge. And will follow up with them in the outpatient and needs to have sleep study. 2. Hypoxic encephalopathy with Altered mental status changes secondary to the respiratory failure. Patient seen by neurology. Computed tomography scan of the brain and head and neck were negative for any acute findings. EEG gives evidence of severe widespread diffuse disturbance in cerebral function. Failed to reveal any seizure activity 3. Acute systolic congestive heart failure with a known EF of 40-45%. currently on IV Lasix. Patient had a recent echo 11/26/2017 showing an EF of 45 -50%. We'll have patient evaluated by cardiology 4. Right leg cellulitis . continue antibiotics. Venous Doppler negative for DVT. Cellulitis has improved greatly 5. Acute on chronic renal failure, stage III. Creatinine near baseline at 1.54 Continue to monitor. 6. History of severe ischemic heart myopathy status post AICD 7. History of coronary artery disease with cardiac stents 8. Diabetes mellitus, insulin-dependent continue sliding scale coverage 9. Acute COPD exacerbation: Currently on IV Solu-Medrol and bronchodilators 10. Essential hypertension 11. Right ankle sprain 12. History of bipolar 13. Hyperlipidemia 14. Hyperkalemia due to patient's acute renal failure. Resolved DVT prophylaxis subcu heparin Physical therapy consulted Anticipate discharge home possibly tomorrow I performed an examination of the patient and discussed their management with the physician Hay Sorter. I have reviewed the Physician Hay Sorter's notes and agree with the documented findings and plan of care
--- NOTE | 2017-12-10 14:59 | XR ---
EXAMINATION TYPE: XR chest 1V DATE OF EXAM: 12/10/2017 COMPARISON: 12/09/2017 HISTORY: 57-year-old male fluid overload TECHNIQUE: Single frontal view of the chest is obtained. FINDINGS: Left anterior chest wall ICD generator with 2 right ventricular leads. Heart remains mildly enlarged with diffuse interstitial and vascular prominence. Small left pleural e ffusion shows some interval decrease in size. Left basilar retrocardiac density persists. IMPRESSION: 1. Continued CHF with pulmonary vascular congestion. 2. Small left pleural effusion decreased in the interval. Continued adjacent atelectasis and/or conso lidation at the left base.
[2017-12-10 17:43] LABS: Glucose,Whole Blood 196 mg/dL (75-99)
--- NOTE | 2017-12-10 18:22 | P.PN ---
Subjective Progress Note Date: 12/10/17 This patient is a 57-year-old male who is seen today in the intensive care unit following episode of altered mental status and hypoxia. He was on BiPAP yesterday for treatment of respiratory failure. He is doing better today and is on high flow oxygen. He underwent computed tomography scan of the brain and CT angiogram head and neck both of which came back normal on admission. He was able to complete a routine EEG which was reviewed and is significantly slow consistent with a hypoxic encephalopathy. Patient is more awake and alert today and does answer some questions appropriately. His creatinine is improved and is down to 1.98. He has evidence of a acute hypoxic and hypercapnic respiratory failure which is slowly improving. Pulmonary medicine is monitoring his condition very closely. Patient does have history of underlying congestive heart failure with ejection fraction of 40-45%. He denies any shortness of breath this morning. He does have history of severe ischemic cardiomyopathy and has had AICD placement in the past. Patient was transferred out of the ICU yesterday due to improvement in his overall mental status. We have discussed the results of the EEG today with the patient in detail. As noted his mental status is much improved from yesterday. He has evidence of underlying hypoxic encephalopathy which is slowly improving. Clinically the patient is showing improvement in his overall mental status. Patient has very poor memory of his stay in the intensive care unit. He states he is feeling much better today and is anxious to be discharged home. Pulmonary service has cleared the patient for discharge. Patient may benefit from a sleep study in the outpatient setting. Cardiology is monitoring him for history of congestive heart failure. Neurologically the patient remains very much intact today and has shown significant improvement in his mental status since coming into the hospital. We will continue close neurological follow-up with the patient during this admission. Objective - Vital Signs Vital signs: Vital Signs Temp 96.9 F L 12/10/17 15:00 Pulse 66 12/10/17 15:00 Resp 18 12/10/17 15:00 BP 135/81 12/10/17 15:00 Pulse Ox 92 L 12/10/17 15:00 Intake & Output 12/09/17 12/10/17 12/10/17 18:59 06:59 18:59 Intake Total 640 800 960 Output Total 1055 1680 475 Balance -415 -850 485 Intake: IV 140 Sodium Chloride 0.9% 1, 140 000 ml @ 20 mls/hr IV . Q24H [facility] Rx#:[id number] Oral 500 800 960 Output: Urine 1055 1650 475 Other: Voiding Method Indwelling Catheter Urinal # Voids 2 # Bowel Movements 0 - Exam Physical examination: PHYSICAL EXAMINATION: Patient is resting comfortably in bed. VITAL SIGNS: Blood pressure is [135/81]. Heart rate is [67]. Respiration is [18] . Temperature is [97.0]. HEENT: Head is atraumatic, neck is supple, there were no carotid bruits. CHEST: Lungs are clear to auscultation and percussion. CARDIAC: S1, S2 normal rate and rhythm. There is no murmur. ABDOMEN: Soft and nontender. Bowel sounds are present. EXTREMITIES: There is no pedal edema. Peripheral pulses are present. Neurological examination: Patient is more awake and alert today. He is following simple commands. He is moving all 4 extremities. Deep reflexes are 1+ and symmetric. Plantar responses flexor bilaterally. - Labs CBC & Chem 7: 12/10/17 08:47 12/10/17 08:47 Labs: Abnormal Lab Results - Last 24 Hours (Table) 12/09/17 12/09/17 12/10/17 Range/Units 17:02 20:27 02:34 WBC (3.8-10.6) k/uL RDW (11.5-15.5) % Neutrophils # (1.3-7.7) k/uL Carbon Dioxide (22-30) mmol/L BUN (9-20) mg/dL Creatinine (0.66-1.25) mg/dL Glucose (74-99) mg/dL POC Glucose (mg/dL) 183 H 192 H 198 H (75-99) mg/dL 12/10/17 12/10/17 12/10/17 Range/Units 06:54 08:47 08:47 WBC 10.8 H (3.8-10.6) k/uL RDW 16.0 H (11.5-15.5) % Neutrophils # 9.0 H (1.3-7.7) k/uL Carbon Dioxide 32 H (22-30) mmol/L BUN 46 H (9-20) mg/dL Creatinine 1.54 H (0.66-1.25) mg/dL Glucose 210 H (74-99) mg/dL POC Glucose (mg/dL) 240 H (75-99) mg/dL 12/10/17 Range/Units 12:39 WBC (3.8-10.6) k/uL RDW (11.5-15.5) % Neutrophils # (1.3-7.7) k/uL Carbon Dioxide (22-30) mmol/L BUN (9-20) mg/dL Creatinine (0.66-1.25) mg/dL Glucose (74-99) mg/dL POC Glucose (mg/dL) 181 H (75-99) mg/dL Assessment and Plan (1) Hypoxic encephalopathy Current Visit: Yes Status: Acute Code(s): G93.1 - ANOXIC BRAIN DAMAGE, NOT ELSEWHERE CLASSIFIED SNOMED Code(s): 950166534 (2) COPD exacerbation Current Visit: No Status: Acute Code(s): J44.1 - CHRONIC OBSTRUCTIVE PULMONARY DISEASE W (ACUTE) EXACERBATION SNOMED Code(s): 374638523282027 (3) Congestive heart failure (CHF) Current Visit: No Status: Acute Code(s): I50.9 - HEART FAILURE, UNSPECIFIED SNOMED Code(s): 89722227 (4) Respiratory failure Current Visit: No Status: Resolved Code(s): J96.90 - RESPIRATORY FAILURE, UNSP, UNSP W HYPOXIA OR HYPERCAPNIA SNOMED Code(s): 533243283 Plan: This patient is a pleasant 57-year-old male who was initially admitted to hospital with acute hypoxic rest Nikita failure and altered mental status. He has shown significant improvement since coming out of the intensive care unit 2 days ago. Patient is now resting comfortably in bed and is alert and oriented 3. He is following all commands. Patient has very little memory of his stay in the intensive care unit when he was initially admitted. Clinically he is showing significant improvement and has evidence of a resolving hypoxic in cephalad up at the. He is advised to use BiPAP at home to prevent recurrence of his respiratory distress. He will follow up with pulmonary medicine as well. His neurological examination at this time is nonfocal. We will continue to follow his progress closely during this admission. He is being considered for discharge home soon.
[2017-12-10] MEDS: traZODone HCL 100 MG TAB PO SCH (20:28)
[2017-12-10] MEDS: QUEtiapine 200 MG TAB PO SCH (20:28)
[2017-12-10 21:07] LABS: Glucose,Whole Blood 230 mg/dL (75-99)
[2017-12-11 02:23] LABS: Glucose,Whole Blood 241 mg/dL (75-99)
[2017-12-11 06:39] VITALS: TEMP 97.7
[2017-12-11 07:21] LABS: Glucose,Whole Blood 182 mg/dL (75-99)
[2017-12-11 07:55] LABS: Basophils % (A) 0 %; Eosinophils % (A) 0 %; HCT 50.5 % (39.0-53.0); HGB 15.7 gm/dL (13.0-17.5); Hypochromasia Slight; Lymphocytes # (A) 1.2 k/uL (1.0-4.8); Lymphocytes % (A) 14 %; MCH 28.8 pg (25.0-35.0); MCHC 31.1 g/dL (31.0-37.0); MCV 92.7 fL (80.0-100.0); Monocytes # (A) 0.6 k/uL (0-1.0); Monocytes % (A) 7 %; Neutrophils # (A) 6.8 k/uL (1.3-7.7); Neutrophils % (A) 78 %; Platelet Count 153 k/uL (150-450); RBC 5.45 m/uL (4.30-5.90); RDW 15.6 % (11.5-15.5); WBC 8.6 k/uL (3.8-10.6)
[2017-12-11] MEDS: INSULIN ASPART 100 UNIT/ML 1 ML 10 ML VIAL SQ SCH ×2 (07:57→12:46)
[2017-12-11] MEDS: ASPIRIN 81 MG PO SCH (07:58)
[2017-12-11] MEDS: HEPARIN SODIUM,PORCINE 5,000 UNIT/ML 1 ML VIAL SQ SCH (07:58)
[2017-12-11] MEDS: cloNIDine HCL 0.2 MG TAB PO SCH (07:58)
[2017-12-11] MEDS: amLODIPine 10 MG TAB PO SCH (07:58)
[2017-12-11] MEDS: LEVOFLOXACIN 500 MG TAB PO SCH (07:59)
[2017-12-11] MEDS: methylPREDNISolone SOD SUCCI 40 MG/ML 1 ML VIAL IV SCH (07:59)
[2017-12-11] MEDS: hydrALAZINE HCL 25 MG TAB PO SCH (07:59)
[2017-12-11] MEDS: GABAPENTIN 300 MG CAP PO SCH (07:59)
[2017-12-11] MEDS: FUROSEMIDE 10 MG/ML 4 ML VIAL IV SCH (07:59)
[2017-12-11] MEDS: ESCITALOPRAM 10 MG TAB PO SCH (07:59)
[2017-12-11] MEDS: METOPROLOL TARTRATE 25 MG TAB PO SCH (07:59)
[2017-12-11] MEDS: PREGABALIN 75 MG CAP PO SCH (08:04)
[2017-12-11 08:21] LABS: Calcium 8.9 mg/dL (8.4-10.2); Magnesium 2.1 mg/dL (1.6-2.3); Phosphorus 4.3 mg/dL (2.5-4.5); Potassium 4.6 mmol/L (3.5-5.1)
[2017-12-11] MEDS ORDERED: PANTOPRAZOLE 40 MG TABLET PO SCH (09:00)
[2017-12-11] MEDS: IPRATROPIUM-ALBUTEROL 3 ML NEB INHALATION SCH ×2 (10:01→12:14)
--- NOTE | 2017-12-11 11:09 | P.PN ---
Progress Note - Text Patient has a [employer] ICD protecta XT This was interrogated Indication for implant was spontaneous sustained ventricular tachycardia. Implanted on 08/30/2011 RV pacing impedance 570 ohms RV coil 44 ohms SVC coil 53 ohms Pacing threshold 2 V at 1 ms R waves 11.3 mV Impression History of cardio myopathy History of hypertension Recent CHF exacerbation, systolic, acute on chronic History of ventricular tachycardia, sustained Status post single chamber ICD, [employer] Obesity CAD Coronary stenting in the past LDL 132, total cholesterol 189, triglycerides 116, HDL 34 Upon admission his BUN was 54 creatinine was 2.8 this is now improved currently today BUN 45, creatinine 1.58 Plan Follow-up in the device clinic Follow-up in the office with Dr. Shelton Maximize carvedilol Low dose losartan and watch renal function Hold off and spironolactone at this time Oral Lasix 40 mg by mouth daily If possible taper off clonidine Outpatient reevaluation for cardio myopathy and CAD
[2017-12-11] MEDS ORDERED: LOSARTAN 25 MG TAB PO SCH (11:15)
[2017-12-11] MEDS ORDERED: FUROSEMIDE 40 MG TAB PO SCH (11:15)
[2017-12-11 11:33] VITALS: BP 135/84
[2017-12-11 12:26] VITALS: PULSE 84
[2017-12-11 12:29] LABS: Glucose,Whole Blood 163 mg/dL (75-99)
[2017-12-11] MEDS: SODIUM CHLORIDE 0.9% 1,000 ML IV SCH (12:47)
--- NOTE | 2017-12-11 13:26 | P.DS ---
Providers Date of admission: 12/07/17 02:37 Expected date of discharge: 12/11/17 Attending physician: Tess Regalado Consults: 12/07/17 02:37 Consult Physician Urgent Consulting Provider: Bita Alva Consult Reason/Comments: ams Do you want consulting provider notified?: Yes 12/07/17 05:59 Consult Physician Stat Consulting Provider: West Haile Consult Reason/Comments: Critical care, respiratory failure Do you want consulting provider notified?: Already Contacted 12/10/17 09:26 Consult Physician Routine Consulting Provider: Ming Lerner Consult Reason/Comments: CHF exacerbation Do you want consulting provider notified?: Yes Primary care physician: [facility] Course: Discharge diagnosis 1. Acute hypoxic and hypercapnic respiratory failure with known chronic hypoxic and hypercapnic respiratory failure. Likely Secondary to CHF or COPD exacerbation. Patient is off of BiPAP and currently on 4 L nasal cannula. Pulmonary is cleared patient for discharge. And will follow up with them in the outpatient and needs to have sleep study. Patient is also been noncompliant with his BiPAP which can also contribute to some of his respiratory failure 2. Hypoxic encephalopathy with Altered mental status changes secondary to the respiratory failure. Patient seen by neurology. Computed tomography scan of the brain and head and neck were negative for any acute findings. EEG gives evidence of severe widespread diffuse disturbance in cerebral function. Failed to reveal any seizure activity 3. Acute systolic congestive heart failure with a known EF of 40-45%. Patient seen by cardiology. They have adjusted medications. They have added Lasix to 40 mg by mouth daily, Coreg 3.125 mg twice a day, Cozaar [address] Smith to hold off on Aldactone at this time. And cardiology recommend to taper off of clonidine if possible 4. Right leg cellulitis . Venous Doppler negative for DVT. Cellulitis has improved greatly. Continue 3 more days of Levaquin 5. Acute on chronic renal failure, stage III. Creatinine near baseline at 1.58 Continue to monitor. 6. 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 Device interrogated. Cardiology cleared patient for discharge 7. History of coronary artery disease with cardiac stents 8. Diabetes mellitus, insulin-dependent continue sliding scale coverage 9. Acute COPD exacerbation: he will be discharged with a prednisone taper and continue bronchodilators 10. Essential hypertension 11. Right ankle sprain 12. History of bipolar 13. Hyperlipidemia 14. Hyperkalemia due to patient's acute renal failure. Resolved Hospital course This is a 57-year-old male with a known history of coronary artery disease with cardiac stent, ischemic cardiomyopathy status post AICD, chronic kidney disease , diabetes mellitus, congestive heart failure, COPD, hyperlipidemia, hypertension, myocardial infarction and bipolar. Patient was just recently hospitalized at [facility] and discharged on December 01 after onset of respiratory failure in which she had required to be intubated. Also had evidence of pneumonia and acute rhabdomyolysis with acute kidney injury during that admission. Patient presented to the emergency room because of altered mental status changes and being off of balance. He was having frequent falls. Patient went into respiratory failure in the ER was placed on BiPAP and admitted to the ICU. Pulmonary service and neurology service was consulted. Computed tomography scan the brain shows no acute changes. CT of the head and neck shows no evidence of carotid stenosis. There was a possible right vertebral stenosis. EKG had shown sinus tach heart cardiac heart rate of 111. Chest x-ray did show findings of mild congestive heart failure. Urinalysis was negative. Drug screen was positive for tricyclic antidepressant. Patient has evidence of cellulitis of the right lower extremity. His last admission he was seen by orthopedics for right ankle sprain and was given boot. When that leg is moved patient responds to pain. Otherwise he is unresponsive. There is evidence of cellulitis and swelling in that leg. Venous Doppler was negative for DVT. Patient has been seen by pulmonary service they have added IV steroids , IV Lasix and antibiotics. Patient required to be admitted to the ICU on BiPAP. Is felt likely his respiratory failure was a combination of CHF and COPD exacerbation as well as he had not been compliant with the BiPAP at home. Patient has been seen by pulmonary and cardiology service. Pulmonary services recommending sleep study as outpatient. Patient is to continue using his BiPAP at home. Also, cardiology has adjusted patient's blood pressure medications as stated above. Patient will be following up with consulting physicians in the office for further workup and medication adjustments. Patient's symptoms have improved greatly. He is medically stable for discharge. I performed an examination of the patient and discussed their management with the physician Console Assembler. I have reviewed the Physician Console Assembler's notes and agree with the documented findings and plan of care Patient Condition at Discharge: Stable Plan - Discharge Summary Discharge Rx Participant: Yes New Discharge Prescriptions: New Carvedilol [Coreg] 3.125 mg PO BID-W/MEALS #60 tab Furosemide [Lasix] 40 mg PO DAILY #30 tab Levofloxacin [Levaquin] 500 mg PO Q24HR #3 tab Losartan [Cozaar] 25 mg PO DAILY #30 tab predniSONE 10 mg PO DIRECTED #18 tab Continue traZODone HCL [Desyrel] 200 mg PO HS amLODIPine [Norvasc] 10 mg PO DAILY Gabapentin [Neurontin] 300 mg PO DAILY Allopurinol [Zyloprim] 100 mg PO DAILY cloNIDine HCL [Catapres] 0.2 mg PO TID QUEtiapine [SEROquel] 200 mg PO HS Escitalopram [Lexapro] 10 mg PO DAILY Aspirin EC [Ecotrin Low Dose] 81 mg PO DAILY #100 tablet. Insulin Aspart [NovoLOG Flexpen] 4 units SQ AC-TID #120 ml Insulin Glargine [Lantus] 20 unit SQ DAILY #600 vial Ipratropium-Albuterol Nebulize [Duoneb 0.5 mg-3 mg/3 ml Soln] 3 ml INHALATION RT-QID PRN #120 neb PRN Reason: Shortness Of Breath Or Wheezing HYDROcodone/APAP 5-325MG [[place] 5-325] 1 tab PO TID PRN PRN Reason: Pain Pregabalin [Lyrica] 75 mg PO BID Fluticasone/Vilanterol [Breo Ellipta 100-25 Mcg Inhaler] 1 puff INHALATION RT -DAILY Albuterol Inhaler [Ventolin Hfa Inhaler] 2 puff INHALATION RT-QID PRN PRN Reason: Shortness Of Breath hydrALAZINE HCL [Apresoline] 25 mg PO TID Discontinued Bumetanide [BUMEX] 4 mg PO BID #60 tab Ibuprofen [Motrin] 800 mg PO BID PRN PRN Reason: Pain Metoprolol Tartrate [Lopressor] 25 mg PO BID tab Discharge Medication List Gabapentin [Neurontin] 300 mg PO DAILY 01/05/16 [History] amLODIPine [Norvasc] 10 mg PO DAILY 01/05/16 [History] traZODone HCL [Desyrel] 200 mg PO HS 01/05/16 [History] Allopurinol [Zyloprim] 100 mg PO DAILY 05/21/17 [History] Escitalopram [Lexapro] 10 mg PO DAILY 05/21/17 [History] QUEtiapine [SEROquel] 200 mg PO HS 05/21/17 [History] cloNIDine HCL [Catapres] 0.2 mg PO TID 05/21/17 [History] Aspirin EC [Ecotrin Low Dose] 81 mg PO DAILY #100 tablet. 05/24/17 [Rx] Insulin Aspart [NovoLOG Flexpen] 4 units SQ AC-TID #120 ml 06/12/17 [Rx] Insulin Glargine [Lantus] 20 unit SQ DAILY #600 vial 06/12/17 [Rx] Ipratropium-Albuterol Nebulize [Duoneb 0.5 mg-3 mg/3 ml Soln] 3 ml INHALATION RT -QID PRN #120 neb 06/12/17 [Rx] Albuterol Inhaler [Ventolin Hfa Inhaler] 2 puff INHALATION RT-QID PRN 11/25/17 [ History] Fluticasone/Vilanterol [Breo Ellipta 100-25 Mcg Inhaler] 1 puff INHALATION RT- DAILY 11/25/17 [History] HYDROcodone/APAP 5-325MG [[place] 5-325] 1 tab PO TID PRN 11/25/17 [History] Pregabalin [Lyrica] 75 mg PO BID 11/25/17 [History] hydrALAZINE HCL [Apresoline] 25 mg PO TID 12/07/17 [History] Carvedilol [Coreg] 3.125 mg PO BID-W/MEALS #60 tab 12/11/17 [Rx] Furosemide [Lasix] 40 mg PO DAILY #30 tab 12/11/17 [Rx] Levofloxacin [Levaquin] 500 mg PO Q24HR #3 tab 12/11/17 [Rx] Losartan [Cozaar] 25 mg PO DAILY #30 tab 12/11/17 [Rx] predniSONE 10 mg PO DIRECTED #18 tab 12/11/17 [Rx] Follow up Appointment(s)/Referral(s): Dawson Smith MD [STAFF PHYSICIAN] - 12/19/17 2:15 pm [facility], [NON-STAFF] - Tess Regalado MD [Primary Care Provider] - 12/17/17 3:30 pm Ming Lerner MD [STAFF PHYSICIAN] - 12/13/17 4:00 pm (For Echo and then to see doctor afterward. ) West Haile MD [STAFF PHYSICIAN] - 1 Week Patient Instructions/Handouts: Encephalopathy (DC) Activity/Diet/Wound Care/Special Instructions: DC RX Echocadiogram Heart failure booklet given. Cardiac diet. Follow up in device clinic at Dr Bello office. Discharge Disposition: HOME WITH HOME HEALTH SERVICES
--- NOTE | 2017-12-11 14:44 | CONS ---
CONSULTATION A 57-year-old male patient who presented to the emergency room with imbalance. He felt dizzy and off-balance and complaining of frequent falls for the last few weeks prior to admission. He denied any confusion. He denied any weakness. When I interviewed and examined him. He denied any chest discomfort. No breathing trouble. He was sitting comfortably in bed and he had a detailed workup. His home medications include gabapentin, amlodipine, trazodone, allopurinol, Lexapro, Seroquel, clonidine, albuterol, fluticasone, hydrocodone, pregabalin and Motrin in the past. He has been on hydralazine, metoprolol, insulin, aspirin and Bumex. ALLERGIES: PENICILLIN. REVIEW OF SYSTEMS: No fever, chills, or rigors. No cough or expectoration. No nausea, vomiting, diarrhea, hematuria, dysuria. He came in with neurologic symptoms of imbalance, which seem to have resolved. PAST HISTORY: Coronary artery disease, heart failure, diabetes, dyslipidemia, hypertension, AL, sleep apnea, obesity, type 2 diabetes. He had an AICD implanted in [place]. He had cardiac catheterization, status post stenting in the past. He would follow up with Dr. Amaya Gregorio in the past. Past psychological history of bipolar disorder. SOCIAL HISTORY: Former smoker. PHYSICAL EXAMINATION: His blood pressure is 160/92 mmHg, pulse rate is in the 50s and temperature is 97.3 degrees Fahrenheit, normal respirations. Head and neck examination is normal. Heart sounds S1, S2 normal. No murmurs, no gallops, no rub. Breath sounds are clear. No rhonchi, no crackles. Abdomen is soft, no edema. LABS: Reviewed and his sodium is 139, potassium is 4.6, BUN 45, creatinine 1.58, magnesium 2.1, calcium 8.9, hemoglobin 15.7. Lipid panel was reviewed. Triglycerides 116, total cholesterol 189, LDL 132, HDL 34. Tox screen, tricyclic antidepressants were detected. Serum alcohol less than 10. Liver function tests reviewed. AST 19, ALT 33. His workup was also reviewed. He had a CT angiogram of the brain, head and neck and there were no hemodynamically significant stenosis in the carotid arteries or no CT angiographic abnormalities in the brain: Lower extremity venous Doppler was negative for DVT in the right leg, since he initially came with right leg swelling and pain. He had an EEG which failed to reveal any focal lateralized epileptiform abnormalities. Followup chest x-ray with CHF which showed pulmonary vascular congestion and small pleural effusion. IMPRESSION: 1. History of AICD implantation. 2. History of cardiomyopathy. 3. History of myocardial infarction by history. He is a patient of Dr. Latham and will get his office records and readjust his medications accordingly. If he does have cardiomyopathy, then I would switch his medications to include LYNSEY inhibitors and watch his renal function. Start statins and beta blockers like carvedilol and slowly taper off clonidine if possible. MMODL / IJN: [id number] /
--- NOTE | 2017-12-11 15:15 | P.PN ---
Subjective Progress Note Date: 12/11/17 Principal diagnosis: Acute on chronic hypercapnic and hypoxic respiratory failure. A 57-year-old male, brought in to the emergency department because of altered mental status. The patient apparently was dizzy and he was off balance. He was having frequent falls. He was also confused and extremely weak. No further history could have been obtained. The patient was found to be in acute hypercapnic respiratory failure on top of chronic hypercapnic respiratory failure. He was placed on BiPAP. Neuro workup was done for his altered mentation including a CAT scan of the brain and the CT angios the neck both of them within normal limits. Chest x-ray showed a component of mild CHF. Patient was moved to the intensive care unit. Currently is on a BiPAP at a pressure of 18/10 cm of water with an FiO2 of 45%. The most recent blood gas showed a pH of 7.24 with a pCO2 of 76 and pO2 of 56. He is calm and comfortable. On examination diminished breath sounds bilaterally along with some scattered expiratory wheezes and for that reason the patient was placed on DuoNeb nebulized treatment [id number] on IV Solu Medrol. Hemodynamically , no hypotension and the patient is producing adequate amount of urine output. He is currently on 100 mL of normal saline and has produced more than a liter of urine output since he came to the intensive care unit. He has a component of acute kidney injury. His creatinine was 1.56 at time of discharge from the hospital on and currently is up to 2.8. Potassium level is at 5.6. Is showing sinus tachycardia with left anterior fascicular block and Q waves over the anterior leads probably old. Troponin is negative. His latest echocardiogram was done in 11/26/2017 and the patient was found to have an ejection fraction of 40-45% and there is no evidence of any pulmonary hypertension or valvular heart disease. This patient was in the hospital on and he was discharged on 12/01/2017. During this time the patient was intubated and placed on a mechanical ventilator for respiratory failure. The patient had an acute kidney injury along with acute respiratory failure and acute rhabdomyolysis and he was discharged home. His outpatient pulmonary medications include [place] developed one inhalation a day, Ventolin rescue inhaler, and I'm not sure if he has any home CPAP or BiPAP. Noted that the patient is a right lower extremities with swollen and red and warm compared to the left. The area that is involved is mainly below the knee reaching all the way to his ankle. There is area of superficial ulceration stage I. Pulses are equal and symmetrical bilaterally. There may be a area of cellulitis involving the right lower extremity. On 12/08/2017 I'm seeing this patient for a follow-up. He is improved and is much more awake and alert on today's evaluation. Is following commands and answering questions appropriately. He is diuresing adequately with IV Lasix. He remains in a negative fluid balance. His creatinine is also improved is currently down to 1.98. Meanwhile, the patient was taken off the BiPAP yesterday evening and currently is on several liters of oxygen nasal cannula. His follow-up blood gases today showed improvement in the acid base status also it is not completely normalized. The blood gases showed a pH of 7.33 with a pCO2 of 64 and pO2 of 91. This was done on high flow oxygen. The patient has no chest pain. No respiratory difficulties. No cough or sputum production. Moving all 4 extremities. He is requesting diet. There is been no other significant events overnight. As for the right lower extremity, the findings are essentially the same. The patient had a traumatic ankle injury. No evidence of any acute synovitis at this point and I feel cellulitis is likely On 12/09/2017 the patient is wide awake communicating and answering questions appropriately. His been off the BiPAP and the follow-up blood gases from this morning shows a compensated chronic hypercapnic respiratory failure and acute respiratory acidosis is completely recovered. He still has some diminished breath on the lung bases along with some bibasilar crackles. He remains in a negative fluid balance. I would suggest continuing the diuretics for another 24 hours. No fever. No chills. No cough or sputum production. No chest pain. The right lower extremity shows some erythema. This is essentially traumatic in nature and there is no evidence of any DVT or active cellulitis and the patient is still on oral Levaquin 500 milligrams by mouth daily. The steroids will be also tapered. He is receiving Lasix 40 mg every 12 hours. Blood pressures under good control. Pain is under good control. He remains on a combination of Seroquel and trazodone at bedtime in addition to Lexapro. Reevaluated today on 12/10/2017, patient is now on nasal cannula, in no distress. Feels great, alert oriented 3, denies any shortness of breath. Remains on multiple meds including diuretics and bronchodilators. ABC is relatively normal , basic metabolic profile is normal bicarb is 32 BUN is 46 creatinine is 1.54. Patient denies shortness of breath, no chest pain, no cough, no wheezing. Reevaluated on 12/11/2017, patient remains on 4 L nasal cannula, he does have oxygen at home. Patient is feeling good, denies any shortness of breath no cough no wheezing. Plans are in progress to discharge the patient home today. All labs from today were reviewed, CBC is relatively normal basic metabolic profile is normal bicarb is 34 BUN is 45 creatinine is 1.58. Objective - Vital Signs Vital signs: Vital Signs Temp 97.7 F 12/11/17 06:38 Pulse 84 12/11/17 12:25 Resp 18 12/11/17 06:38 BP 135/84 12/11/17 11:33 Pulse Ox 96 12/11/17 06:38 Intake & Output 12/10/17 12/11/17 12/11/17 18:59 06:59 18:59 Intake Total 960 1700 480 Output Total 475 2500 1350 Balance 485 -800 -870 Intake: Oral 960 1700 480 Output: Urine 475 2500 1350 Other: Voiding Method Urinal # Voids 2 1 # Bowel Movements 0 - Exam Physical Exam revealed a 57-year-old male in no distress. Very pleasant, HEENT:[Neck is supple.] [No neck masses.] [No thyromegaly.] [No JVD.] Chest: [Clear throughout, no crackles, no rhonchi, no wheezes.] Cardiac Exam: [Normal S1 and S2, no S3 gallop, no murmur.] Abdomen: [Soft, nontender, no megaly, no rebound, no guarding, normal bowel sounds.] Extremities: [No clubbing, no edema, no cyanosis.] Neurological Exam: [No focal neurologic deficit. Psychiatric: Normal mood affect and mental status exam Lymphatics: No lymphadenopathy.] - Labs CBC & Chem 7: 12/11/17 07:22 12/11/17 07:22 Labs: Abnormal Lab Results - Last 24 Hours (Table) 12/10/17 12/10/17 12/11/17 Range/Units 17:40 20:42 02:14 RDW (11.5-15.5) % Carbon Dioxide (22-30) mmol/L BUN (9-20) mg/dL Creatinine (0.66-1.25) mg/dL Glucose (74-99) mg/dL POC Glucose (mg/dL) 196 H 230 H 241 H (75-99) mg/dL 12/11/17 12/11/17 12/11/17 Range/Units 07:17 07:22 07:22 RDW 15.6 H (11.5-15.5) % Carbon Dioxide 34 H (22-30) mmol/L BUN 45 H (9-20) mg/dL Creatinine 1.58 H (0.66-1.25) mg/dL Glucose 207 H (74-99) mg/dL POC Glucose (mg/dL) 182 H (75-99) mg/dL 12/11/17 Range/Units 12:26 RDW (11.5-15.5) % Carbon Dioxide (22-30) mmol/L BUN (9-20) mg/dL Creatinine (0.66-1.25) mg/dL Glucose (74-99) mg/dL POC Glucose (mg/dL) 163 H (75-99) mg/dL Assessment and Plan Assessment: Impression: 1Acute on chronic hypoxic and hypercapnic respiratory failure secondary to COPD and chronic systolic congestive heart failure. 2 altered mental status secondary to above. Resolved, mental status is intact today. 3 COPD, with acute exacerbation. 4 obstructive sleep apnea suspected 5 coronary artery disease with previous coronary intervention and stenting 6 CHF with an ejection fraction 40-45% 7 previous history of severe ischemic cardiomyopathy and the patient has an AICD in place 8 chronic renal failure with stage III chronic kidney disease and the patient has developed acute kidney injury on top of his chronic renal failure and the creatinine is up to 2.8. The patient is improving and the creatinine is down to 1.8. 9 diabetes mellitus, insulin-dependent with diabetic neuropathy and nephropathy 10 right ankle sprain 11 right lower extremity cellulitis suspected 12 hypertension 13 hyperlipidemia 14 depression/bipolar disorder Recommendation: Continue present treatment plan, agree with discharge planning today, follow up with us in one week post discharge. Time with Patient: Less than 30
[2017-12-11] MEDS ORDERED: CARVEDILOL 3.125 MG TAB PO SCH (17:30)
== END 2017-12-11 14:44 | disposition home health service (06) | DRG 189 ==
LOC: EC 23:31 → 6SEL 12-07 02:37 → 6ICU 12-07 06:09 → 4MS4W 12-09 16:13
PROVIDERS: ADMIT Internal Medicine; ATTEND Internal Medicine
PROC: 5A09357 Assistance with Respiratory Ventilation, Less than 24 Consecutive Hours, Continuous Positive Airway Pressure (ICD-10-PCS; principal; 2017-12-07)
PROC: 4B02XTZ Measurement of Cardiac Defibrillator, External Approach (ICD-10-PCS; 2017-12-10)
DX: J96.21 Acute and chronic respiratory failure with hypoxia (principal); G93.1 Anoxic brain damage, not elsewhere classified; I50.23 Acute on chronic systolic (congestive) heart failure; N17.9 Acute kidney failure, unspecified; E87.2 Acidosis; L03.115 Cellulitis of right lower limb; N18.3 Chronic kidney disease, stage 3 (moderate); E11.22 Type 2 diabetes mellitus with diabetic chronic kidney disease; I13.0 Hypertensive heart and chronic kidney disease with heart failure and stage 1 through stage 4 chronic kidney disease, or unspecified chronic kidney disease; J44.1 Chronic obstructive pulmonary disease with (acute) exacerbation; J96.22 Acute and chronic respiratory failure with hypercapnia; E11.40 Type 2 diabetes mellitus with diabetic neuropathy, unspecified; E66.9 Obesity, unspecified; Z68.37 Body mass index [BMI] 37.0-37.9, adult; E78.5 Hyperlipidemia, unspecified; E87.5 Hyperkalemia; F31.9 Bipolar disorder, unspecified; G47.33 Obstructive sleep apnea (adult) (pediatric); I25.10 Atherosclerotic heart disease of native coronary artery without angina pectoris; I25.2 Old myocardial infarction; I25.5 Ischemic cardiomyopathy; R40.2142 Coma scale, eyes open, spontaneous, at arrival to emergency department; R40.2252 Coma scale, best verbal response, oriented, at arrival to emergency department; R40.2362 Coma scale, best motor response, obeys commands, at arrival to emergency department; I44.4 Left anterior fascicular block; S93.401A Sprain of unspecified ligament of right ankle, initial encounter; Z79.4 Long term (current) use of insulin; Z79.899 Other long term (current) drug therapy; Z80.9 Family history of malignant neoplasm, unspecified; Z82.49 Family history of ischemic heart disease and other diseases of the circulatory system; Z86.79 Personal history of other diseases of the circulatory system; Z87.891 Personal history of nicotine dependence; Z91.19 Patient's noncompliance with other medical treatment and regimen; Z95.5 Presence of coronary angioplasty implant and graft; Z95.810 Presence of automatic (implantable) cardiac defibrillator; Z99.81 Dependence on supplemental oxygen; Z79.1 Long term (current) use of non-steroidal anti-inflammatories (NSAID); Z79.82 Long term (current) use of aspirin; Z79.891 Long term (current) use of opiate analgesic; Z88.0 Allergy status to penicillin; Z45.02 Encounter for adjustment and management of automatic implantable cardiac defibrillator
CPT/HCPCS: 36415; 36600; 70450; 70496; 70498; 71045; 80048; 80053; 80061; 80306; 80320; 81003; 82550; 82553; 82805; 83735; 84100; 84484; 85025; 85610; 85730; 93005; 94640; 94660; 94760; 95819; 96361; 96374; 96375; 96376; 99291

== ENCOUNTER 2018-01-14 13:44 | Inpatient (IN) | payer MEDICARE, OTHER ==
[2018-01-14] MEDS ORDERED: SODIUM CHLORIDE 0.9% 500 ML IV ONE (13:56)
[2018-01-14 13:58] LABS: Glucose,Whole Blood 141 mg/dL (75-99)
--- NOTE | 2018-01-14 14:04 | ED ---
General Adult HPI - General Chief complaint: Altered Mental Status Stated complaint: Weakness Time Seen by Provider: 01/14/18 13:45 Source: EMS, RN notes reviewed Mode of arrival: EMS Limitations: altered mental status - History of Present Illness Initial comments: This a 57-year-old male who is a diabetic. Patient was brought in via EMS because he was altered mentally. There is no family with the patient and the EMS apparently didn't give any review nurse's a full history other than they were called for altered mental status. Patient states she's not been drinking patient denies any drug use. Patient denies any symptoms at all right now except that he is very tired. Patient states he doesn't remember anything but he thinks he might of passed out. Patient denies any seizure history. Patient denies any chest pain palpitations difficulty breathing shortness breath. Patient denies any recent fever or chills patient denies any recent vomiting or diarrhea. - Related Data Home Medications Medication Instructions Recorded Confirmed Gabapentin [Neurontin] 300 mg PO DAILY 01/05/16 01/14/18 amLODIPine [Norvasc] 10 mg PO DAILY 01/05/16 01/14/18 traZODone HCL [Desyrel] 200 mg PO HS 01/05/16 01/14/18 Allopurinol [Zyloprim] 100 mg PO DAILY 05/21/17 01/14/18 Escitalopram [Lexapro] 10 mg PO DAILY 05/21/17 01/14/18 QUEtiapine [SEROquel] 200 mg PO HS 05/21/17 01/14/18 Albuterol Inhaler [Ventolin Hfa 2 puff INHALATION RT-QID PRN 11/25/17 01/14/18 Inhaler] Fluticasone/Vilanterol [Breo 1 puff INHALATION RT-DAILY 11/25/17 01/14/18 Ellipta 100-25 Mcg Inhaler] Pregabalin [Lyrica] 75 mg PO BID 11/25/17 01/14/18 hydrALAZINE HCL [Apresoline] 25 mg PO TID 12/07/17 01/14/18 HYDROcodone/APAP 10-325MG [Whitestone 1 tab PO TID PRN 01/14/18 01/14/18 10-325] Lisinopril [Prinivil] 20 mg PO DAILY 01/14/18 01/14/18 Pravastatin Sodium [Pravachol] 40 mg PO HS 01/14/18 01/14/18 Previous Rx's Medication Instructions Recorded Insulin Aspart [NovoLOG Flexpen] 4 units SQ AC-TID #120 ml 06/12/17 Carvedilol [Coreg] 3.125 mg PO BID-W/MEALS #60 tab 12/11/17 Furosemide [Lasix] 40 mg PO DAILY #30 tab 12/11/17 Losartan [Cozaar] 25 mg PO DAILY #30 tab 12/11/17 cloNIDine HCL [Catapres] 0.2 mg PO BID #60 tab 12/11/17 Allergies Allergy/AdvReac Type Severity Reaction Status Date / Time Penicillins Allergy Unknown Verified 01/14/18 14:26 Review of Systems ROS Statement: Those systems with pertinent positive or pertinent negative responses have been documented in the HPI. ROS Other: All systems not noted in ROS Statement are negative. 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, insulin-dependent diabetes mellitus, diabetic peripheral neuropathy, diabetic nephropathy, chronic renal failure with stage III chronic kidney disease with a baseline creatinine of 1.6-1.7, history of CHF and based on that echocardiogram that was done in 2018, the patient had a ejection fraction of 40-45%, history of severe ischemic cardiac myopathy and the patient has a AICD in place, coronary artery disease, hypertension, hyperlipidemia, depression him a previous history of acute respiratory failure requiring intubation mechanical ventilation, bipolar disorder, right ankle sprain wearing a immobilizing boot on outpatient basis Last Myocardial Infarction Date:: 2004 History of Any Multi-Drug Resistant Organisms: None Reported Past Surgical History: AICD, Heart Catheterization With Stent, Pacemaker Past Anesthesia/Blood Transfusion Reactions: No Reported Reaction Date of Last Stent Placement:: 2004 Type of Cardiac Device: Permanent Pacemaker, AICD Device Placement Date:: 09/2004 Past Psychological History: Bipolar Smoking Status: Former smoker Past Alcohol Use History: None Reported Past Drug Use History: None Reported - Past Family History Father Family Medical History: Cancer Additional Family Medical History / Comment(s): Paternal grandfather with CAD Mother Family Medical History: Cancer Additional Family Medical History / Comment(s): Maternal grandmother had CAD. Mother had cancer. General Exam - General Exam Comments Initial Comments: GENERAL: Patient is well-developed and well-nourished. Patient is nontoxic and well- hydrated and is in no acute distress. Patient arouses to speech or stimulation and is able to answer questions quickly but falls asleep almost immediately. Patient had a difficult time sitting up because it appears as though he is falling asleep I states there in under 3 seconds. ENT: Neck is soft and supple. No significant lymphadenopathy is noted. Oropharynx is clear. Moist mucous membranes. Neck has full range of motion without eliciting any pain. EYES: The sclera were anicteric and conjunctiva were pink and moist. Extraocular movements were intact and pupils were equal round and reactive to light. Eyelids were unremarkable. PULMONARY: Unlabored respirations. Good breath sounds bilaterally. No audible rales rhonchi or wheezing was noted. CARDIOVASCULAR: There is a regular rate and rhythm without any murmurs gallops or rubs. ABDOMEN: Soft and nontender with normal bowel sounds. No palpable organomegaly was noted. There is no palpable pulsatile mass. SKIN: Skin is clear with no lesions or rashes and otherwise unremarkable. NEUROLOGIC: Patient is alert and oriented x3. Cranial nerves II through XII are grossly intact. Motor and sensory are also intact. Normal speech, volume and content. Symmetrical smile. MUSCULOSKELETAL: Normal extremities with adequate strength and full range of motion. No lower extremity swelling or edema. No calf tenderness. LYMPHATICS: No significant lymphadenopathy is noted PSYCHIATRIC: Normal psychiatric evaluation. Limitations: altered mental status Course Vital Signs 01/14/18 01/14/18 01/14/18 13:47 14:35 15:00 Temperature 98.0 F Pulse Rate 77 98 Respiratory 14 16 20 Rate Blood Pressure 135/76 160/96 O2 Sat by Pulse 96 95 97 Oximetry 01/14/18 01/14/18 15:27 16:09 Temperature Pulse Rate 100 Respiratory 20 Rate Blood Pressure 158/100 O2 Sat by Pulse 95 Oximetry Medical Decision Making - Medical Decision Making EKG shows sinus rhythm at 95 bpm IN interval is 160 QRS is 114 QT interval 374 QTC is 469. Patient's EKG compared to an old EKG I see no acute changes. Chest x-ray shows some pulmonary edema. I started the patient on Lasix and Nitropaste and gave the patient some hydralazine to keep his pressure down. Patient was oxygenating while sitting in bed but he was falling asleep almost instantaneously after he woke him up. Because his pulse ox keeps falling when he falls asleep I put the patient on BiPAP. I started the patient on antibiotics for the pneumonia. I spoke with Dr. Regalado he agreed to admit the patient admitted the patient for altered mental status pneumonia renal failure elevated troponin congestive heart failure and hypoxia. I spoke with Dr. Regalado about seeing the patient this evening he agreed that he would see the patient this evening.. I consult Dr. Haile ABG was done and it showed a O2 sat of 82 however when I went in the room the patient was oxygenating at 90 - 91% when we had a good waveform. - Lab Data Result diagrams: 01/14/18 14:10 01/14/18 14:10 Lab Results 01/14/18 01/14/18 01/14/18 Range/Units 13:47 14:10 14:10 WBC (3.8-10.6) k/uL RBC (4.30-5.90) m/uL Hgb (13.0-17.5) gm/dL Hct (39.0-53.0) % MCV (80.0-100.0) fL MCH (25.0-35.0) pg MCHC (31.0-37.0) g/dL RDW (11.5-15.5) % Plt Count (150-450) k/uL Neutrophils % % Lymphocytes % % Monocytes % % Eosinophils % % Basophils % % Neutrophils # (1.3-7.7) k/uL Lymphocytes # (1.0-4.8) k/uL Monocytes # (0-1.0) k/uL Eosinophils # (0-0.7) k/uL Basophils # (0-0.2) k/uL Hypochromasia Sample Site ABG pH (7.35-7.45) ABG pCO2 (35-45) mmHg ABG pO2 (83-108) mmHg ABG HCO3 (21-25) mmol/L ABG Total CO2 (19-24) mmol/L ABG O2 Saturation (94-97) % ABG Base Excess mmol/L Anthony Test FiO2 % Sodium 142 (137-145) mmol/L Potassium 5.2 H (3.5-5.1) mmol/L Chloride 104 (98-107) mmol/L Carbon Dioxide 22 (22-30) mmol/L Anion Gap 16 mmol/L BUN 39 H (9-20) mg/dL Creatinine 2.63 H (0.66-1.25) mg/dL Est GFR (CKD-EPI)AfAm 30 (>60 ml/min/1.73 sqM) Est GFR (CKD-EPI)NonAf 26 (>60 ml/min/1.73 sqM) Glucose 141 H (74-99) mg/dL POC Glucose (mg/dL) 141 H (75-99) mg/dL POC Glu [place] [facility] [employer] ID Renate Romero Plasma Lactic Acid Rodney (0.7-2.0) mmol/L Calcium 9.2 (8.4-10.2) mg/dL Total Bilirubin 0.6 (0.2-1.3) mg/dL AST 81 H (17-59) U/L ALT 34 (21-72) U/L Alkaline Phosphatase 113 (38-126) U/L Total Creatine Kinase 3002 H (55-170) U/L CK-MB (CK-2) 18.1 H* (0.0-2.4) ng/mL CK-MB (CK-2) Rel Index Troponin I 0.199 H* (0.000-0.034) ng/mL Total Protein 6.5 (6.3-8.2) g/dL Albumin 3.9 (3.5-5.0) g/dL Urine Color Urine Appearance (Clear) Urine pH (5.0-8.0) Ur Specific Spiro (1.001-1.035) Urine Protein (Negative) Urine Glucose (UA) (Negative) Urine Ketones (Negative) Urine Blood (Negative) Urine Nitrite (Negative) Urine Bilirubin (Negative) Urine Urobilinogen (<2.0) mg/dL Ur Leukocyte Esterase (Negative) Urine RBC (0-5) /hpf Urine WBC (0-5) /hpf Ur Squamous Epith Cells (0-4) /hpf Hyaline Casts (0-2) /lpf Urine Mucus (None) /hpf Urine Yeast (Budding) (None) /hpf Urine Opiates Screen (NotDetected) Ur Oxycodone Screen (NotDetected) Urine Methadone Screen (NotDetected) Ur Propoxyphene Screen (NotDetected) Ur Barbiturates Screen (NotDetected) U Tricyclic Antidepress (NotDetected) Ur Phencyclidine Scrn (NotDetected) Ur Amphetamines Screen (NotDetected) U Methamphetamines Scrn (NotDetected) U Benzodiazepines Scrn (NotDetected) Urine Cocaine Screen (NotDetected) U Marijuana (THC) Screen (NotDetected) Serum Alcohol <10 mg/dL 01/14/18 01/14/18 01/14/18 Range/Units 14:10 14:10 15:40 WBC 15.5 H (3.8-10.6) k/uL RBC 6.18 H (4.30-5.90) m/uL Hgb 17.7 H (13.0-17.5) gm/dL Hct 56.2 H (39.0-53.0) % MCV 90.9 (80.0-100.0) fL MCH 28.7 (25.0-35.0) pg MCHC 31.6 (31.0-37.0) g/dL RDW 15.1 (11.5-15.5) % Plt Count 103 L (150-450) k/uL Neutrophils % 84 % Lymphocytes % 7 % Monocytes % 7 % Eosinophils % 1 % Basophils % 0 % Neutrophils # 13.0 H (1.3-7.7) k/uL Lymphocytes # 1.1 (1.0-4.8) k/uL Monocytes # 1.1 H (0-1.0) k/uL Eosinophils # 0.1 (0-0.7) k/uL Basophils # 0.0 (0-0.2) k/uL Hypochromasia Slight Sample Site ABG pH (7.35-7.45) ABG pCO2 (35-45) mmHg ABG pO2 (83-108) mmHg ABG HCO3 (21-25) mmol/L ABG Total CO2 (19-24) mmol/L ABG O2 Saturation (94-97) % ABG Base Excess mmol/L Anthony Test FiO2 % Sodium (137-145) mmol/L Potassium (3.5-5.1) mmol/L Chloride (98-107) mmol/L Carbon Dioxide (22-30) mmol/L Anion Gap mmol/L BUN (9-20) mg/dL Creatinine (0.66-1.25) mg/dL Est GFR (CKD-EPI)AfAm (>60 ml/min/1.73 sqM) Est GFR (CKD-EPI)NonAf (>60 ml/min/1.73 sqM) Glucose (74-99) mg/dL POC Glucose (mg/dL) (75-99) mg/dL POC Glu [place] [facility] ID Plasma Lactic Acid Rodney 2.1 H* (0.7-2.0) mmol/L Calcium (8.4-10.2) mg/dL Total Bilirubin (0.2-1.3) mg/dL AST (17-59) U/L ALT (21-72) U/L Alkaline Phosphatase (38-126) U/L Total Creatine Kinase (55-170) U/L CK-MB (CK-2) (0.0-2.4) ng/mL CK-MB (CK-2) Rel Index Troponin I (0.000-0.034) ng/mL Total Protein (6.3-8.2) g/dL Albumin (3.5-5.0) g/dL Urine Color Yellow Urine Appearance Cloudy (Clear) Urine pH 5.5 (5.0-8.0) Ur Specific Spiro 1.013 (1.001-1.035) Urine Protein 2+ H (Negative) Urine Glucose (UA) Negative (Negative) Urine Ketones Negative (Negative) Urine Blood Small H (Negative) Urine Nitrite Negative (Negative) Urine Bilirubin Negative (Negative) Urine Urobilinogen <2.0 (<2.0) mg/dL Ur Leukocyte Esterase Negative (Negative) Urine RBC 1 (0-5) /hpf Urine WBC 4 (0-5) /hpf Ur Squamous Epith Cells 1 (0-4) /hpf Hyaline Casts 4 H (0-2) /lpf Urine Mucus Rare H (None) /hpf Urine Yeast (Budding) Occasional H (None) /hpf Urine Opiates Screen Detected H (NotDetected) Ur Oxycodone Screen Not Detected (NotDetected) Urine Methadone Screen Not Detected (NotDetected) Ur Propoxyphene Screen Not Detected (NotDetected) Ur Barbiturates Screen Not Detected (NotDetected) U Tricyclic Antidepress Detected H (NotDetected) Ur Phencyclidine Scrn Not Detected (NotDetected) Ur Amphetamines Screen Not Detected (NotDetected) U Methamphetamines Scrn Not Detected (NotDetected) U Benzodiazepines Scrn Not Detected (NotDetected) Urine Cocaine Screen Not Detected (NotDetected) U Marijuana (THC) Screen Not Detected (NotDetected) Serum Alcohol mg/dL 01/14/18 Range/Units 16:19 WBC (3.8-10.6) k/uL RBC (4.30-5.90) m/uL Hgb (13.0-17.5) gm/dL Hct (39.0-53.0) % MCV (80.0-100.0) fL MCH (25.0-35.0) pg MCHC (31.0-37.0) g/dL RDW (11.5-15.5) % Plt Count (150-450) k/uL Neutrophils % % Lymphocytes % % Monocytes % % Eosinophils % % Basophils % % Neutrophils # (1.3-7.7) k/uL Lymphocytes # (1.0-4.8) k/uL Monocytes # (0-1.0) k/uL Eosinophils # (0-0.7) k/uL Basophils # (0-0.2) k/uL Hypochromasia Sample Site RAD ABG pH 7.31 L (7.35-7.45) ABG pCO2 55 H (35-45) mmHg ABG pO2 48 L (83-108) mmHg ABG HCO3 28 H (21-25) mmol/L ABG Total CO2 29 H (19-24) mmol/L ABG O2 Saturation 82.3 L (94-97) % ABG Base Excess 1.2 mmol/L Anthony Test Yes FiO2 32 % Sodium (137-145) mmol/L Potassium (3.5-5.1) mmol/L Chloride (98-107) mmol/L Carbon Dioxide (22-30) mmol/L Anion Gap mmol/L BUN (9-20) mg/dL Creatinine (0.66-1.25) mg/dL Est GFR (CKD-EPI)AfAm (>60 ml/min/1.73 sqM) Est GFR (CKD-EPI)NonAf (>60 ml/min/1.73 sqM) Glucose (74-99) mg/dL POC Glucose (mg/dL) (75-99) mg/dL POC Glu [place] [facility] ID Plasma Lactic Acid Rodney (0.7-2.0) mmol/L Calcium (8.4-10.2) mg/dL Total Bilirubin (0.2-1.3) mg/dL AST (17-59) U/L ALT (21-72) U/L Alkaline Phosphatase (38-126) U/L Total Creatine Kinase (55-170) U/L CK-MB (CK-2) (0.0-2.4) ng/mL CK-MB (CK-2) Rel Index Troponin I (0.000-0.034) ng/mL Total Protein (6.3-8.2) g/dL Albumin (3.5-5.0) g/dL Urine Color Urine Appearance (Clear) Urine pH (5.0-8.0) Ur Specific Spiro (1.001-1.035) Urine Protein (Negative) Urine Glucose (UA) (Negative) Urine Ketones (Negative) Urine Blood (Negative) Urine Nitrite (Negative) Urine Bilirubin (Negative) Urine Urobilinogen (<2.0) mg/dL Ur Leukocyte Esterase (Negative) Urine RBC (0-5) /hpf Urine WBC (0-5) /hpf Ur Squamous Epith Cells (0-4) /hpf Hyaline Casts (0-2) /lpf Urine Mucus (None) /hpf Urine Yeast (Budding) (None) /hpf Urine Opiates Screen (NotDetected) Ur Oxycodone Screen (NotDetected) Urine Methadone Screen (NotDetected) Ur Propoxyphene Screen (NotDetected) Ur Barbiturates Screen (NotDetected) U Tricyclic Antidepress (NotDetected) Ur Phencyclidine Scrn (NotDetected) Ur Amphetamines Screen (NotDetected) U Methamphetamines Scrn (NotDetected) U Benzodiazepines Scrn (NotDetected) Urine Cocaine Screen (NotDetected) U Marijuana (THC) Screen (NotDetected) Serum Alcohol mg/dL Critical Care Time Critical Care Time: Yes Total Critical Care Time: 35 Disposition Clinical Impression: Altered mental status, Hypoxia, Acute renal failure, Elevated troponin, Acute pulmonary edema, Pneumonia Disposition: ADMITTED IP TO THIS HOSP Referrals: Tess Regalado MD [Primary Care Provider] - 1-2 days Time of Disposition: 16:37
[2018-01-14 14:42] LABS: Basophils % (A) 0 %; Eosinophils # (A) 0.1 k/uL (0-0.7); Eosinophils % (A) 1 %; HGB 17.7 gm/dL (13.0-17.5); Hypochromasia Slight; Lymphocytes # (A) 1.1 k/uL (1.0-4.8); Lymphocytes % (A) 7 %; MCH 28.7 pg (25.0-35.0); MCHC 31.6 g/dL (31.0-37.0); MCV 90.9 fL (80.0-100.0); Mean Platelet Volume 10.4; Monocytes # (A) 1.1 k/uL (0-1.0); Monocytes % (A) 7 %; Neutrophils % (A) 84 %; Platelet Count 103 k/uL (150-450); RBC 6.18 m/uL (4.30-5.90); RDW 15.1 % (11.5-15.5); WBC 15.5 k/uL (3.8-10.6)
[2018-01-14 14:43] LABS: HCT 56.2 % (39.0-53.0)
[2018-01-14 14:48] LABS: ALT 34 U/L (21-72); AST 81 U/L (17-59); Albumin 3.9 g/dL (3.5-5.0); Alcohol <10 mg/dL; Alkaline Phosphatase 113 U/L (38-126); Anion Gap 16 mmol/L; Blood Urea Nitrogen 39 mg/dL (9-20); Calcium 9.2 mg/dL (8.4-10.2); Carbon Dioxide 22 mmol/L (22-30); Chloride 104 mmol/L (98-107); Glucose 141 mg/dL (74-99); Potassium 5.2 mmol/L (3.5-5.1); Sodium 142 mmol/L (137-145); Total Bilirubin 0.6 mg/dL (0.2-1.3); Total Protein 6.5 g/dL (6.3-8.2)
--- NOTE | 2018-01-14 15:02 | CT ---
EXAMINATION TYPE: CT brain wo con DATE OF EXAM: 01/14/2018 COMPARISON: 12/07/2017 HISTORY: Altered mental status. Found on floor today. CT DLP: 869.7 mGycm. Automated Exposure Control for Dose Reduction was Utilized. TECHNIQUE: CT scan of the head is performed without contrast. FINDINGS: There is no acute intracranial hemorrhage, mass effect, or midline shift identified. Dyst rophic left basal ganglia calcifications are incidentally noted. The ventricles and sulci are within normal limits in size for the patient's age. The globes are intact and the visualized sinuses are cl ear. The left vertebral artery is dominant in comparison to the right measuring up to 5 mm in size. N o suspicious extra-axial fluid collection. IMPRESSION: No acute intracranial hemorrhage, mass effect, or midline shift is seen.
--- NOTE | 2018-01-14 15:13 | XR ---
EXAMINATION TYPE: XR chest 2V DATE OF EXAM: 01/14/2018 COMPARISON: Chest x-ray December 10, 2017 HISTORY: Altered mental status and weakness TECHNIQUE: Frontal and lateral views of the chest are obtained. FINDINGS: Lateral view is suboptimal due to patient's large body habitus. There is redemonstration of cardiomegaly with dual lead pacemaker/AICD. There are new central opacities bilaterally consistent w ith edema and/or infiltrates. On lateral view small bilateral pleural effusions are felt present. The osseous structures are intact. IMPRESSION: Correlate for CHF exacerbation as there is cardiomegaly with small bilateral pleural eff usions. There is additional central edema and/or infiltrates bilaterally.
[2018-01-14 15:34] LABS: Creatine Kinase MB 18.1 ng/mL (0.0-2.4); Troponin I 0.199 ng/mL (0.000-0.034)
[2018-01-14] MEDS ORDERED: NITROGLYCERIN OINT 1 INCH/GM PACKET TOPICAL STA (15:42)
[2018-01-14] MEDS ORDERED: FUROSEMIDE 10 MG/ML 10 ML VIAL IV STA (15:42)
[2018-01-14] MEDS ORDERED: hydrALAZINE HCL 20 MG/ML 1 ML VIAL IVP STA ×2 (15:43→16:48)
[2018-01-14] MEDS ORDERED: cefTRIAXone IN SWFI 1,000 MG/10 ML SYRINGE IVP STA (15:45)
[2018-01-14 16:07] LABS: Appearance,Urine Cloudy (Clear); Bilirubin,Urine Negative (Negative); Blood,Urine Small (Negative); Budding Yeast,Urine Occasional /hpf; Color,Urine Yellow; Glucose,Urine (UA) Negative (Negative); Hyaline Casts,Urine 4 /lpf (0-2); Ketones,Urine Negative (Negative); Leukocyte Esterase,Urine Negative (Negative); Mucus,Urine Rare /hpf; Nitrite,Urine Negative (Negative); PH, Urine 5.5 (5.0-8.0); Protein,Urine 2+ (Negative); RBC,Urine 1 /hpf (0-5); Specific Gravity,Urine 1.013 (1.001-1.035); Squamous Epithelial Cell,Urine 1 /hpf (0-4); Urobilinogen,Urine <2.0 mg/dL (<2.0); WBC,Urine 4 /hpf (0-5)
[2018-01-14 16:12] LABS: Amphetamine Screen,Urine Not Detected (NotDetected); Barbiturate Screen,Urine Not Detected (NotDetected); Benzodiazepines Screen,Urine Not Detected (NotDetected); Cocaine Screen,Urine Not Detected (NotDetected); Methadone Screen, Urine Not Detected (NotDetected); Opiate Screen,Urine Detected (NotDetected); Oxycodone Screen, Urine Not Detected (NotDetected); Phencyclidine Screen,Urine Not Detected (NotDetected); Tricyclic Antidepressant,Urine Detected (NotDetected); Urn Cannabinoid Scrn Not Detected (NotDetected)
[2018-01-14 16:20] LABS: Prothrombin Time 9.7 sec (9.0-12.0)
[2018-01-14 16:23] LABS: ABG Base Excess 1.2 mmol/L; ABG HCO3 28 mmol/L (21-25); ABG Oxygen Saturation 82.3 % (94-97); ABG PCO2 55 mmHg (35-45); ABG PH 7.31 (7.35-7.45); ABG PO2 48 mmHg (83-108); ABG TCO2 29 mmol/L (19-24)
[2018-01-14] MEDS ORDERED: PNEUMONIA PROTOCOL UTILIZED 1 EACH MISC PO PRN (16:39)
[2018-01-14] MEDS ORDERED: AZITHROMYCIN 500 MG in SODIUM CHLORIDE 0.9% 250 ML IVPB STA (16:44)
[2018-01-14 17:09] LABS: Partial Thromboplastin Time 18.7 sec (22.0-30.0)
--- NOTE | 2018-01-14 18:23 | P.CNPUL ---
History of Present Illness Consult date: 01/14/18 Reason for consult: dyspnea History of present illness: 57-year-old male patient was brought into the emergency department because of altered mentation. The patient is a poor historian. The denied having any fever or chills. No nausea or vomiting. No chest pain. In the emergency department the patient was afebrile. Hemodynamically stable. Blood pressure was somewhat elevated with initial blood pressure 158/100. The patient had a chest x-ray that showed acute pulmonary edema. Nitroglycerin paste was applied and the patient was given IV Lasix and the patient was given hydralazine to control the blood pressure. The patient was also placed on a BiPAP and a pulmonary consultation was requested. The blood work showed a white cell count of 15.5. The blood gases showed a pH of 7.31 with a pCO2 of 55 and pO2 of 48 and this blood gases was done and FiO2 of 32%. The blood work also showed an acute on top of chronic renal failure with a creatinine of 2.6 knowing that the patient's baseline creatinine is around 1.5. The patient's potassium level was at 5.2. CPK was 3000. Troponin was 0.199 and a lactic acid level is at 2.1. The urinalysis showed +2 protein in the urine toxin was positive for opiates and tricyclics. Alcohol level was negative. The patient's EKG showed a normal sinus rhythm. The patient a right axis deviation and no other major abnormalities was noted. Review of Systems She is unable to volunteer any information. His mentation is altered. He is also simple commands. He is awake. Is quite weak. He is able to wear the BiPAP fullface mask and his synchronous. No seizure activity has been noted. No focal neurological deficit and the patient is moving all 4 extremities without any limitation. ROS unobtainable: due to mental status Past Medical History Past Medical History: Coronary Artery Disease (CAD), Chest Pain / Angina, Heart Failure, COPD, Diabetes Mellitus, Hyperlipidemia, Hypertension, Myocardial Infarction (CT), Pneumonia, Renal Disease, Sleep Apnea/CPAP/BIPAP Additional Past Medical History / Comment(s): COPD, suspected obstructive sleep apnea, chronic hypoxic and hypercapnic the story failure, insulin-dependent diabetes mellitus, diabetic peripheral neuropathy, diabetic nephropathy, chronic renal failure with stage III chronic kidney disease with a baseline creatinine of 1.6-1.7, history of CHF and based on that echocardiogram that was done in 2018, the patient had a ejection fraction of 40-45%, history of severe ischemic cardiac myopathy and the patient has a AICD in place, coronary artery disease, hypertension, hyperlipidemia, depression him a previous history of acute respiratory failure requiring intubation mechanical ventilation, bipolar disorder, right ankle sprain wearing a immobilizing boot on outpatient basis Last Myocardial Infarction Date:: 2004 History of Any Multi-Drug Resistant Organisms: None Reported Past Surgical History: AICD, Heart Catheterization With Stent, Pacemaker Past Anesthesia/Blood Transfusion Reactions: No Reported Reaction Date of Last Stent Placement:: 2004 Type of Cardiac Device: Permanent Pacemaker, AICD Device Placement Date:: 09/2004 Past Psychological History: Bipolar Smoking Status: Former smoker Past Alcohol Use History: None Reported Past Drug Use History: None Reported - Past Family History Father Family Medical History: Cancer Additional Family Medical History / Comment(s): Paternal grandfather with CAD Mother Family Medical History: Cancer Additional Family Medical History / Comment(s): Maternal grandmother had CAD. Mother had cancer. Medications and Allergies Home Medications Medication Instructions Recorded Confirmed Type Gabapentin [Neurontin] 300 mg PO DAILY 01/05/16 01/14/18 History amLODIPine [Norvasc] 10 mg PO DAILY 01/05/16 01/14/18 History traZODone HCL [Desyrel] 200 mg PO HS 01/05/16 01/14/18 History Allopurinol [Zyloprim] 100 mg PO DAILY 05/21/17 01/14/18 History Escitalopram [Lexapro] 10 mg PO DAILY 05/21/17 01/14/18 History QUEtiapine [SEROquel] 200 mg PO HS 05/21/17 01/14/18 History Insulin Aspart [NovoLOG Flexpen] 4 units SQ AC-TID #120 ml 06/12/17 01/14/18 Rx Albuterol Inhaler [Ventolin Hfa 2 puff INHALATION RT-QID PRN 11/25/17 01/14/18 History Inhaler] Fluticasone/Vilanterol [Breo 1 puff INHALATION RT-DAILY 11/25/17 01/14/18 History Ellipta 100-25 Mcg Inhaler] Pregabalin [Lyrica] 75 mg PO BID 11/25/17 01/14/18 History hydrALAZINE HCL [Apresoline] 25 mg PO TID 12/07/17 01/14/18 History Carvedilol [Coreg] 3.125 mg PO BID-W/MEALS #60 tab 12/11/17 01/14/18 Rx Furosemide [Lasix] 40 mg PO DAILY #30 tab 12/11/17 01/14/18 Rx Losartan [Cozaar] 25 mg PO DAILY #30 tab 12/11/17 01/14/18 Rx cloNIDine HCL [Catapres] 0.2 mg PO BID #60 tab 12/11/17 01/14/18 Rx HYDROcodone/APAP 10-325MG [Holt 1 tab PO TID PRN 01/14/18 01/14/18 History 10-325] Lisinopril [Prinivil] 20 mg PO DAILY 01/14/18 01/14/18 History Pravastatin Sodium [Pravachol] 40 mg PO HS 01/14/18 01/14/18 History Allergies Allergy/AdvReac Type Severity Reaction Status Date / Time Penicillins Allergy Unknown Verified 01/14/18 14:26 Physical Exam Vitals: Vital Signs Temp Pulse Resp BP Pulse Ox 01/14/18 17:33 172/72 98 01/14/18 17:09 109 H 22 191/107 01/14/18 16:35 20 89 L 01/14/18 16:09 158/100 01/14/18 15:27 100 20 95 01/14/18 15:00 20 97 01/14/18 14:35 98 16 160/96 95 01/14/18 13:47 98.0 F 77 14 135/76 96 Intake and Output 01/14/18 01/14/18 01/14/18 06:59 14:59 22:59 Other: Weight 129.274 kg On examination, the patient is lethargic and plan is awake and communicating.. The patient is synchronous with the BiPAP machine. He opens his eyes to repeated stimulation. Does not follow commands yet. Head exam was generally normal. There was no scleral icterus or corneal arcus. Mucous membranes were moist. Neck was supple and without jugular venous distension, thyromegaly, or carotid bruits. Carotids were easily palpable bilaterally. There was no adenopathy. Lung sounds are diminished bilaterally along with some few scattered expiratory wheezes. Heart sounds are regular, positive S1-S2 and there is no significant murmurs.Cardiac exam revealed the PMI to be normally situated and sized. The rhythm was regular and no extrasystoles were noted during several minutes of auscultation. The first and second heart sounds were normal and physiologic splitting of the second heart sound was noted. There were no murmurs, rubs, clicks, or gallops. Abdominal exam revealed normal bowel sounds. The abdomen was soft, non-tender, and without masses, organomegaly, or appreciable enlargement of the abdominal aorta. Extremities shows some erythema and warmth in the right lower extremities. Ankle and the knee mainly anteriorly and there is an area of superficial ulceration stage I. Equal and symmetrical pulses bilaterally. No cyanosis or clubbing. Psychiatric history cannot be obtained. Skeletal examination the patient has a ankle sprain in the right lower extremity /ankle area. No obvious deformities Neurologic examination. The patient is having altered mentation. He follows simple commands. Unable to carry a full conversation as the patient is currently short of breath on a full face BiPAP mask. The patient is moving all 4 extremities without any limitation. No cranial nerve deficits. Results - Laboratory Findings CBC and BMP: 01/14/18 14:10 01/14/18 14:10 ABG ABG pH 7.31 (7.35-7.45) L 01/14/18 16:19 ABG pCO2 55 mmHg (35-45) H 01/14/18 16:19 ABG pO2 48 mmHg (83-108) L 01/14/18 16:19 ABG O2 Saturation 82.3 % (94-97) L 01/14/18 16:19 PT/INR, D-dimer PT 9.7 sec (9.0-12.0) 01/14/18 15:36 INR 1.0 (<1.2) 01/14/18 15:36 Abnormal lab findings: Abnormal Labs 01/14/18 01/14/18 01/14/18 13:47 14:10 14:10 WBC RBC Hgb Hct Plt Count Neutrophils # Monocytes # APTT ABG pH ABG pCO2 ABG pO2 ABG HCO3 ABG Total CO2 ABG O2 Saturation Potassium 5.2 H BUN 39 H Creatinine 2.63 H Glucose 141 H POC Glucose (mg/dL) 141 H Plasma Lactic Acid Rodney AST 81 H Total Creatine Kinase 3002 H CK-MB (CK-2) 18.1 H* Troponin I 0.199 H* Urine Protein Urine Blood Hyaline Casts Urine Mucus Urine Yeast (Budding) Urine Opiates Screen U Tricyclic Antidepress 01/14/18 01/14/18 01/14/18 14:10 14:10 15:36 WBC 15.5 H RBC 6.18 H Hgb 17.7 H Hct 56.2 H Plt Count 103 L Neutrophils # 13.0 H Monocytes # 1.1 H APTT 18.7 L ABG pH ABG pCO2 ABG pO2 ABG HCO3 ABG Total CO2 ABG O2 Saturation Potassium BUN Creatinine Glucose POC Glucose (mg/dL) Plasma Lactic Acid Rodney 2.1 H* AST Total Creatine Kinase CK-MB (CK-2) Troponin I Urine Protein Urine Blood Hyaline Casts Urine Mucus Urine Yeast (Budding) Urine Opiates Screen U Tricyclic Antidepress 01/14/18 01/14/18 15:40 16:19 WBC RBC Hgb Hct Plt Count Neutrophils # Monocytes # APTT ABG pH 7.31 L ABG pCO2 55 H ABG pO2 48 L ABG HCO3 28 H ABG Total CO2 29 H ABG O2 Saturation 82.3 L Potassium BUN Creatinine Glucose POC Glucose (mg/dL) Plasma Lactic Acid Rodney AST Total Creatine Kinase CK-MB (CK-2) Troponin I Urine Protein 2+ H Urine Blood Small H Hyaline Casts 4 H Urine Mucus Rare H Urine Yeast (Budding) Occasional H Urine Opiates Screen Detected H U Tricyclic Antidepress Detected H - Diagnostic Findings Chest x-ray: image reviewed Assessment and Plan Plan: Assessment 1 acute hypoxic and hypercapnic respiratory failure on top of a chronic hypoxic and hypercapnic respiratory failure. The patient is in acute pulmonary edema. The patient has developed diffuse breath and pulmonary infiltrates and currently is BiPAP dependent. He presented with hypertensive urgency/emergency with worsening shortness of breath and minimal troponin leak. EKG is not showing any acute ischemic changes and there is right axis deviation and sinus rhythm. 2 altered mental status secondary to above. Neuro workup including a CAT scan of the brain was negative 3 COPD 4 obstructive sleep apnea suspected 5 coronary artery disease with previous coronary intervention and stenting 6 CHF with an ejection fraction 40-45% 7 previous history of severe ischemic cardiomyopathy and the patient has an AICD in place 8 chronic renal failure with stage III chronic kidney disease and the patient has developed acute kidney injury on top of his chronic renal failure and the creatinine is up to 2.8. The patient is nonoliguric. 9 diabetes mellitus, insulin-dependent with diabetic neuropathy and nephropathy 10 right ankle sprain 11 hypertension 12 hyperlipidemia 13 depression/bipolar disorder Plan Continue BiPAP for respiratory support. Kept on the IV fluids to KVO. Continue with IV Lasix. Diabetes this patient. Monitor the renal function. Continue bronchodilators. control blood pressure. Outpatient medication will be ordered resume. We'll continue to follow make further recommendations based on his progress. He may need to come back to the intensive care unit for further monitoring. The patient has possible troponin leaks. The patient will placed on IV heparin, pending cardiology consultation. Recommend moving this patient to the intensive care unit for further monitoring. Daily chest x-rays. Urinalysis and culture once the Hernandez catheter was inserted. We'll continue to follow.
[2018-01-14] MEDS ORDERED: IPRATROPIUM-ALBUTEROL 3 ML NEB INHALATION PRN (18:30)
[2018-01-14] MEDS ORDERED: HEPARIN SODIUM,PORCINE/D5W PMX 25,000 UNIT in DEXTROSE/WATER 1 500ML.BAG IV SCH (18:30)
[2018-01-14] MEDS ORDERED: HEPARIN SODIUM,PORCINE 5,000 UNIT/ML 1 ML VIAL IV ONE (18:45)
[2018-01-14] MEDS: PANTOPRAZOLE 40 MG/10 ML VIAL IVP SCH (19:46)
[2018-01-14] MEDS: BUDESONIDE 0.5 MG/2 ML NEBU INHALATION SCH (20:07)
[2018-01-14] MEDS: FORMOTEROL FUMARATE 20 MCG/2 ML NEBU INHALATION SCH (20:07)
[2018-01-14] MEDS: IPRATROPIUM-ALBUTEROL 3 ML NEB INHALATION SCH (20:07)
[2018-01-14 20:48] LABS: Glucose,Whole Blood 163 mg/dL (75-99)
[2018-01-14] MEDS: CARVEDILOL 3.125 MG TAB PO SCH (21:37)
[2018-01-14] MEDS ORDERED: hydrALAZINE HCL 20 MG/ML 1 ML VIAL IVP PRN (21:44)
[2018-01-14] MEDS: PRAVASTATIN SODIUM 40 MG TAB PO SCH (21:46)
[2018-01-14] MEDS: traZODone HCL 100 MG TAB PO SCH (21:46)
[2018-01-14] MEDS: hydrALAZINE HCL 25 MG TAB PO SCH (21:46)
[2018-01-14] MEDS: PREGABALIN 75 MG CAP PO SCH (21:46)
[2018-01-14] MEDS: QUEtiapine 200 MG TAB PO SCH (21:46)
[2018-01-14] MEDS: cloNIDine HCL 0.2 MG TAB PO SCH (21:46)
[2018-01-15] MEDS: NITROGLYCERIN OINT 1 INCH/GM PACKET TOPICAL SCH ×5 (00:08→23:44)
[2018-01-15] MEDS: FUROSEMIDE 10 MG/ML 4 ML VIAL IV SCH ×4 (00:08→23:44)
[2018-01-15 02:48] LABS: Basophils % (A) 0 %; Eosinophils # (A) 0.2 k/uL (0-0.7); Eosinophils % (A) 1 %; HCT 53.7 % (39.0-53.0); HGB 16.7 gm/dL (13.0-17.5); Hypochromasia Slight; Lymphocytes # (A) 1.2 k/uL (1.0-4.8); Lymphocytes % (A) 8 %; MCH 28.3 pg (25.0-35.0); MCHC 31.2 g/dL (31.0-37.0); MCV 90.8 fL (80.0-100.0); Mean Platelet Volume 11.7; Monocytes % (A) 6 %; Neutrophils # (A) 12.5 k/uL (1.3-7.7); Neutrophils % (A) 83 %; Platelet Count 106 k/uL (150-450); RBC 5.92 m/uL (4.30-5.90); WBC 15.1 k/uL (3.8-10.6)
[2018-01-15 02:57] LABS: Calcium 9.1 mg/dL (8.4-10.2); Potassium 4.5 mmol/L (3.5-5.1)
[2018-01-15 03:07] VITALS: BMI 36.6
[2018-01-15] MEDS: HEPARIN SODIUM,PORCINE 5,000 UNIT/ML 1 ML VIAL IV PRN ×2 (03:11→10:16)
[2018-01-15 04:33] LABS: Anisocytosis (M) Present; Large Platelets Present; Poikilocytosis (M) Present; Polychromasia Present
[2018-01-15] MEDS: CARVEDILOL 3.125 MG TAB PO SCH ×2 (06:31→16:45)
[2018-01-15] MEDS: IPRATROPIUM-ALBUTEROL 3 ML NEB INHALATION SCH ×3 (07:12→20:36)
[2018-01-15] MEDS: BUDESONIDE 0.5 MG/2 ML NEBU INHALATION SCH ×2 (07:12→20:36)
[2018-01-15] MEDS: FORMOTEROL FUMARATE 20 MCG/2 ML NEBU INHALATION SCH ×2 (07:12→20:36)
[2018-01-15 07:54] LABS: Glucose,Whole Blood 132 mg/dL (75-99)
--- NOTE | 2018-01-15 08:10 | XR ---
EXAMINATION TYPE: XR chest 1V DATE OF EXAM: 01/15/2018 COMPARISON: 01/14/2018 HISTORY: 57-year-old male acute pulmonary edema, respiratory failure TECHNIQUE: Single frontal view of the chest is obtained. FINDINGS: Left anterior chest wall is a generator with 2 right ventricular leads. Heart remains enlarged. Diffu se interstitial and vascular prominence with improving bilateral airspace disease. Small effusions ar e likely present but not well demonstrated on the frontal view. IMPRESSION: CHF with residual interstitial edema/pulmonary vascular congestion. There has been improvement from p rior exam.
[2018-01-15] MEDS: GABAPENTIN 300 MG CAP PO SCH (09:02)
[2018-01-15] MEDS: PANTOPRAZOLE 40 MG/10 ML VIAL IVP SCH (09:02)
[2018-01-15] MEDS: cloNIDine HCL 0.2 MG TAB PO SCH ×2 (09:02→21:13)
[2018-01-15] MEDS: hydrALAZINE HCL 25 MG TAB PO SCH ×3 (09:03→22:02)
[2018-01-15] MEDS: ESCITALOPRAM 10 MG TAB PO SCH (09:03)
[2018-01-15] MEDS: ALLOPURINOL 100 MG TAB PO SCH (09:03)
[2018-01-15] MEDS: cefTRIAXone IN SWFI 1,000 MG/10 ML SYRINGE IVP SCH (09:05)
[2018-01-15] MEDS: PREGABALIN 75 MG CAP PO SCH ×2 (09:05→21:13)
[2018-01-15] MEDS: amLODIPine 10 MG TAB PO SCH (09:19)
[2018-01-15 11:55] LABS: Glucose,Whole Blood 133 mg/dL (75-99)
[2018-01-15] MEDS: INSULIN ASPART 100 UNIT/ML 1 ML 10 ML VIAL SQ SCH ×3 (12:13→21:13)
--- NOTE | 2018-01-15 12:53 | P.PN ---
<Ysabel Macias M - Last Filed: 01/15/18 12:53> Subjective Progress Note Date: 01/15/18 Principal diagnosis: Acute on chronic hypoxic and hypercapnic respiratory failure secondary to acute pulmonary edema, hypertensive urgency. 57-year-old male patient was brought into the emergency department because of altered mentation. The patient is a poor historian. The denied having any fever or chills. No nausea or vomiting. No chest pain. In the emergency department the patient was afebrile. Hemodynamically stable. Blood pressure was somewhat elevated with initial blood pressure 158/100. The patient had a chest x-ray that showed acute pulmonary edema. Nitroglycerin paste was applied and the patient was given IV Lasix and the patient was given hydralazine to control the blood pressure. The patient was also placed on a BiPAP and a pulmonary consultation was requested. The blood work showed a white cell count of 15.5. The blood gases showed a pH of 7.31 with a pCO2 of 55 and pO2 of 48 and this blood gases was done and FiO2 of 32%. The blood work also showed an acute on top of chronic renal failure with a creatinine of 2.6 knowing that the patient's baseline creatinine is around 1.5. The patient's potassium level was at 5.2. CPK was 3000. Troponin was 0.199 and a lactic acid level is at 2.1. The urinalysis showed +2 protein in the urine toxin was positive for opiates and tricyclics. Alcohol level was negative. The patient's EKG showed a normal sinus rhythm. The patient a right axis deviation and no other major abnormalities was noted. On 01/15/2018 patient seen in follow-up in intensive care unit. He reports his breathing improved, is currently off the BiPAP support, on 2 L per nasal cannula with O2 sat at 92%. Afebrile, hemodynamically stable, blood pressures are better controlled, with SBP in the 140's-160's and diastolic in the 90's/100 's. Patient is awake, alert, oriented 2, to place, person. Appears slightly withdrawn and a bit restless. Lung sounds reveal scattered rhonchi bilaterally , with fine rales at the bases. Today's chest x-ray shows CHF with residual interstitial edema/pulmonary vascular congestion, significantly improved from yesterday's exam. Today's blood work shows the BBC of 15.1, hemoglobin of 16.7 , electrolytes are within normal limits, BUN of 36, creatinine is 2.00. Patient had 2 positive sets of troponins, which topped at 0.199. CK-MBs were elevated at 18.1, with total creatinine kinase at 3002, patient was started on IV heparin last night, he is receiving Nitropaste 1 inch topical every 6 hours. He denies any chest pain. He does not recall his last heart catheterization, her he thinks he did have a heart catheterization in the past. We will consult cardiology in regards to patient's positive cardiac enzymes. Objective - Vital Signs Vital signs: Vital Signs Temp 98.6 F 01/15/18 08:00 Pulse 82 01/15/18 09:00 Resp 18 01/15/18 09:00 BP 167/95 01/15/18 09:00 Pulse Ox 92 L 01/15/18 09:00 Intake & Output 01/14/18 01/15/18 01/15/18 18:59 06:59 18:59 Intake Total 822.285 60 Output Total 2150 325 Balance -1327.715 -265 Weight 129.3 kg 124.7 kg Intake: IV 180 60 0.9 KVO 180 60 Amount of Fluid Infused ( 500 ml) Intake, IV Titration 142.285 Amount Heparin Sodium,Porcine/ 142.285 D5w Pmx 25,000 unit In Dextrose/Water 1 500ml. bag @ 7.7 UNITS/KG/HR 19. 9 mls/hr IV .Q24H [facility] Rx# :[id number] Output: Urine 2150 325 Other: Voiding Method Indwelling Catheter Indwelling Catheter - Exam On examination, the patient is more awake, oriented 2, to person and place. Currently on 2 L per nasal cannula, denies any acute respiratory distress. Denies any chest pain Head exam was generally normal. There was no scleral icterus or corneal arcus. Mucous membranes were moist. Neck was supple and without jugular venous distension, thyromegaly, or carotid bruits. Carotids were easily palpable bilaterally. There was no adenopathy. Lung sounds are positive for scattered rhonchi Heart sounds are regular, positive S1-S2 and there is no significant murmurs.Cardiac exam revealed the PMI to be normally situated and sized. The rhythm was regular and no extrasystoles were noted during several minutes of auscultation. The first and second heart sounds were normal and physiologic splitting of the second heart sound was noted. There were no murmurs, rubs, clicks, or gallops. Abdominal exam revealed normal bowel sounds. The abdomen was soft, non-tender, and without masses, organomegaly, or appreciable enlargement of the abdominal aorta. Extremities shows some erythema and warmth in the right lower extremities. Ankle and the knee mainly anteriorly and there is an area of superficial ulceration stage I. Equal and symmetrical pulses bilaterally. No cyanosis or clubbing. Psychiatric history cannot be obtained. Skeletal examination the patient has a ankle sprain in the right lower extremity /ankle area. No obvious deformities Neurologic examination. The patient is having altered mentation. He follows simple commands. Unable to carry a full conversation as the patient is currently short of breath on a full face BiPAP mask. The patient is moving all 4 extremities without any limitation. No cranial nerve deficits. - Labs CBC & Chem 7: 01/15/18 02:20 01/15/18 02:20 Labs: Abnormal Lab Results - Last 24 Hours (Table) 01/14/18 01/14/18 01/14/18 Range/Units 13:47 14:10 14:10 WBC (3.8-10.6) k/uL RBC (4.30-5.90) m/uL Hgb (13.0-17.5) gm/dL Hct (39.0-53.0) % Plt Count (150-450) k/uL Neutrophils # (1.3-7.7) k/uL Monocytes # (0-1.0) k/uL APTT (22.0-30.0) sec ABG pH (7.35-7.45) ABG pCO2 (35-45) mmHg ABG pO2 (83-108) mmHg ABG HCO3 (21-25) mmol/L ABG Total CO2 (19-24) mmol/L ABG O2 Saturation (94-97) % Potassium 5.2 H (3.5-5.1) mmol/L BUN 39 H (9-20) mg/dL Creatinine 2.63 H (0.66-1.25) mg/dL Glucose 141 H (74-99) mg/dL POC Glucose (mg/dL) 141 H (75-99) mg/dL Plasma Lactic Acid Rodney (0.7-2.0) mmol/L AST 81 H (17-59) U/L Total Creatine Kinase 3002 H (55-170) U/L CK-MB (CK-2) 18.1 H* (0.0-2.4) ng/mL Troponin I 0.199 H* (0.000-0.034) ng/mL Urine Protein (Negative) Urine Blood (Negative) Hyaline Casts (0-2) /lpf Urine Mucus (None) /hpf Urine Yeast (Budding) (None) /hpf Urine Opiates Screen (NotDetected) U Tricyclic Antidepress (NotDetected) 01/14/18 01/14/18 01/14/18 Range/Units 14:10 14:10 15:36 WBC 15.5 H (3.8-10.6) k/uL RBC 6.18 H (4.30-5.90) m/uL Hgb 17.7 H (13.0-17.5) gm/dL Hct 56.2 H (39.0-53.0) % Plt Count 103 L (150-450) k/uL Neutrophils # 13.0 H (1.3-7.7) k/uL Monocytes # 1.1 H (0-1.0) k/uL APTT 18.7 L (22.0-30.0) sec ABG pH (7.35-7.45) ABG pCO2 (35-45) mmHg ABG pO2 (83-108) mmHg ABG HCO3 (21-25) mmol/L ABG Total CO2 (19-24) mmol/L ABG O2 Saturation (94-97) % Potassium (3.5-5.1) mmol/L BUN (9-20) mg/dL Creatinine (0.66-1.25) mg/dL Glucose (74-99) mg/dL POC Glucose (mg/dL) (75-99) mg/dL Plasma Lactic Acid Rodney 2.1 H* (0.7-2.0) mmol/L AST (17-59) U/L Total Creatine Kinase (55-170) U/L CK-MB (CK-2) (0.0-2.4) ng/mL Troponin I (0.000-0.034) ng/mL Urine Protein (Negative) Urine Blood (Negative) Hyaline Casts (0-2) /lpf Urine Mucus (None) /hpf Urine Yeast (Budding) (None) /hpf Urine Opiates Screen (NotDetected) U Tricyclic Antidepress (NotDetected) 01/14/18 01/14/18 01/14/18 Range/Units 15:40 16:19 20:46 WBC (3.8-10.6) k/uL RBC (4.30-5.90) m/uL Hgb (13.0-17.5) gm/dL Hct (39.0-53.0) % Plt Count (150-450) k/uL Neutrophils # (1.3-7.7) k/uL Monocytes # (0-1.0) k/uL APTT (22.0-30.0) sec ABG pH 7.31 L (7.35-7.45) ABG pCO2 55 H (35-45) mmHg ABG pO2 48 L (83-108) mmHg ABG HCO3 28 H (21-25) mmol/L ABG Total CO2 29 H (19-24) mmol/L ABG O2 Saturation 82.3 L (94-97) % Potassium (3.5-5.1) mmol/L BUN (9-20) mg/dL Creatinine (0.66-1.25) mg/dL Glucose (74-99) mg/dL POC Glucose (mg/dL) 163 H (75-99) mg/dL Plasma Lactic Acid Rodney (0.7-2.0) mmol/L AST (17-59) U/L Total Creatine Kinase (55-170) U/L CK-MB (CK-2) (0.0-2.4) ng/mL Troponin I (0.000-0.034) ng/mL Urine Protein 2+ H (Negative) Urine Blood Small H (Negative) Hyaline Casts 4 H (0-2) /lpf Urine Mucus Rare H (None) /hpf Urine Yeast (Budding) Occasional H (None) /hpf Urine Opiates Screen Detected H (NotDetected) U Tricyclic Antidepress Detected H (NotDetected) 01/15/18 01/15/18 01/15/18 Range/Units 02:20 02:20 02:20 WBC 15.1 H (3.8-10.6) k/uL RBC 5.92 H (4.30-5.90) m/uL Hgb (13.0-17.5) gm/dL Hct 53.7 H (39.0-53.0) % Plt Count 106 L (150-450) k/uL Neutrophils # 12.5 H (1.3-7.7) k/uL Monocytes # (0-1.0) k/uL APTT (22.0-30.0) sec ABG pH (7.35-7.45) ABG pCO2 (35-45) mmHg ABG pO2 (83-108) mmHg ABG HCO3 (21-25) mmol/L ABG Total CO2 (19-24) mmol/L ABG O2 Saturation (94-97) % Potassium (3.5-5.1) mmol/L BUN 36 H (9-20) mg/dL Creatinine 2.00 H (0.66-1.25) mg/dL Glucose 141 H (74-99) mg/dL POC Glucose (mg/dL) (75-99) mg/dL Plasma Lactic Acid Rodney (0.7-2.0) mmol/L AST (17-59) U/L Total Creatine Kinase (55-170) U/L CK-MB (CK-2) (0.0-2.4) ng/mL Troponin I 0.192 H* (0.000-0.034) ng/mL Urine Protein (Negative) Urine Blood (Negative) Hyaline Casts (0-2) /lpf Urine Mucus (None) /hpf Urine Yeast (Budding) (None) /hpf Urine Opiates Screen (NotDetected) U Tricyclic Antidepress (NotDetected) 01/15/18 01/15/18 Range/Units 07:52 08:58 WBC (3.8-10.6) k/uL RBC (4.30-5.90) m/uL Hgb (13.0-17.5) gm/dL Hct (39.0-53.0) % Plt Count (150-450) k/uL Neutrophils # (1.3-7.7) k/uL Monocytes # (0-1.0) k/uL APTT 31.4 H (22.0-30.0) sec ABG pH (7.35-7.45) ABG pCO2 (35-45) mmHg ABG pO2 (83-108) mmHg ABG HCO3 (21-25) mmol/L ABG Total CO2 (19-24) mmol/L ABG O2 Saturation (94-97) % Potassium (3.5-5.1) mmol/L BUN (9-20) mg/dL Creatinine (0.66-1.25) mg/dL Glucose (74-99) mg/dL POC Glucose (mg/dL) 132 H (75-99) mg/dL Plasma Lactic Acid Rodney (0.7-2.0) mmol/L AST (17-59) U/L Total Creatine Kinase (55-170) U/L CK-MB (CK-2) (0.0-2.4) ng/mL Troponin I (0.000-0.034) ng/mL Urine Protein (Negative) Urine Blood (Negative) Hyaline Casts (0-2) /lpf Urine Mucus (None) /hpf Urine Yeast (Budding) (None) /hpf Urine Opiates Screen (NotDetected) U Tricyclic Antidepress (NotDetected) Assessment and Plan Plan: Assessment 1 acute hypoxic and hypercapnic respiratory failure on top of a chronic hypoxic and hypercapnic respiratory failure. The patient is in acute pulmonary edema. The patient has developed diffuse breath and pulmonary infiltrates and currently is BiPAP dependent. He presented with hypertensive urgency/emergency with worsening shortness of breath and minimal troponin leak. EKG is not showing any acute ischemic changes and there is right axis deviation and sinus rhythm. 2 altered mental status secondary to above. Neuro workup including a CAT scan of the brain was negative 3 COPD 4 obstructive sleep apnea suspected 5 coronary artery disease with previous coronary intervention and stenting 6 CHF with an ejection fraction 40-45% 7 previous history of severe ischemic cardiomyopathy and the patient has an AICD in place 8 chronic renal failure with stage III chronic kidney disease and the patient has developed acute kidney injury on top of his chronic renal failure and the creatinine is up to 2.8. The patient is nonoliguric. 9 diabetes mellitus, insulin-dependent with diabetic neuropathy and nephropathy 10 right ankle sprain 11 hypertension 12 hyperlipidemia 13 depression/bipolar disorder Plan: Continue IV diuresis, may use BiPAP report as needed. Monitor renal profile, fluid balance, EKG changes. We will consult cardiology in regards to troponin leak. Continue heparin drip. Today's chest x-ray shows improvement in aeration , and improvement in the appearance of the interstitial edema/pulmonary vascular congestion. I performed a history & physical examination of the patient and discussed their management with my nurse practitioner, Ysabel Macias. I reviewed the nurse practitioner's note and agree with the documented findings and plan of care. Lung sounds are positive for coarse rhonchi, and fine rales at the bases. The findings and the impression was discussed with the patient. I attest to the documentation by the nurse practitioner. Time with Patient: Less than 30 <[place] - Last Filed: 01/15/18 18:03> Objective - Vital Signs Vital signs: Vital Signs Temp 98.6 F 01/15/18 16:00 Pulse 88 01/15/18 17:00 Resp 17 01/15/18 17:00 BP 131/91 01/15/18 17:00 Pulse Ox 95 01/15/18 17:00 Intake & Output 01/14/18 01/15/18 01/15/18 18:59 06:59 18:59 Intake Total 822.285 220 Output Total 2149 2064 Balance -1327.715 -1845 Weight 129.3 kg 124.7 kg Intake: IV 180 220 0.9 KVO 180 220 Amount of Fluid Infused ( 500 ml) Intake, IV Titration 142.285 Amount Heparin Sodium,Porcine/ 142.285 D5w Pmx 25,000 unit In Dextrose/Water 1 500ml. bag @ 7.7 UNITS/KG/HR 19. 9 mls/hr IV .Q24H [facility] Rx# :[id number] Output: Urine 2149 2064 Other: Voiding Method Indwelling Catheter Indwelling Catheter - Labs CBC & Chem 7: 01/15/18 02:20 01/15/18 02:20 Labs: Abnormal Lab Results - Last 24 Hours (Table) 01/14/18 01/15/18 01/15/18 Range/Units 20:46 02:20 02:20 WBC 15.1 H (3.8-10.6) k/uL RBC 5.92 H (4.30-5.90) m/uL Hct 53.7 H (39.0-53.0) % Plt Count 106 L (150-450) k/uL Neutrophils # 12.5 H (1.3-7.7) k/uL APTT (22.0-30.0) sec BUN 36 H (9-20) mg/dL Creatinine 2.00 H (0.66-1.25) mg/dL Glucose 141 H (74-99) mg/dL POC Glucose (mg/dL) 163 H (75-99) mg/dL Creatine Kinase (55-170) U/L Troponin I (0.000-0.034) ng/mL 01/15/18 01/15/18 01/15/18 Range/Units 02:20 02:20 07:52 WBC (3.8-10.6) k/uL RBC (4.30-5.90) m/uL Hct (39.0-53.0) % Plt Count (150-450) k/uL Neutrophils # (1.3-7.7) k/uL APTT (22.0-30.0) sec BUN (9-20) mg/dL Creatinine (0.66-1.25) mg/dL Glucose (74-99) mg/dL POC Glucose (mg/dL) 132 H (75-99) mg/dL Creatine Kinase 1281 H (55-170) U/L Troponin I 0.192 H* (0.000-0.034) ng/mL 01/15/18 01/15/18 01/15/18 Range/Units 08:58 11:54 15:55 WBC (3.8-10.6) k/uL RBC (4.30-5.90) m/uL Hct (39.0-53.0) % Plt Count (150-450) k/uL Neutrophils # (1.3-7.7) k/uL APTT 31.4 H 35.2 H (22.0-30.0) sec BUN (9-20) mg/dL Creatinine (0.66-1.25) mg/dL Glucose (74-99) mg/dL POC Glucose (mg/dL) 133 H (75-99) mg/dL Creatine Kinase (55-170) U/L Troponin I (0.000-0.034) ng/mL 01/15/18 01/15/18 01/15/18 Range/Units 15:55 16:49 17:03 WBC (3.8-10.6) k/uL RBC (4.30-5.90) m/uL Hct (39.0-53.0) % Plt Count (150-450) k/uL Neutrophils # (1.3-7.7) k/uL APTT (22.0-30.0) sec BUN (9-20) mg/dL Creatinine (0.66-1.25) mg/dL Glucose (74-99) mg/dL POC Glucose (mg/dL) 111 H 101 H (75-99) mg/dL Creatine Kinase (55-170) U/L Troponin I 0.121 H* (0.000-0.034) ng/mL Assessment and Plan Plan: This is a joint evaluation that was done along with a nurse practitioner. The patient is improving. The patient is responding very massive diuresis. Chest x -ray showing improvement in pulmonary edema. Hemodynamically stable. Renal function stable is improving. The patient is currently off BiPAP. He is still requiring high flow oxygen. We'll continue to follow and wean the FiO2 as tolerated. Monitor renal function. Keep the patient ICU for another 24 hours.
--- NOTE | 2018-01-15 15:07 | P.HPIM ---
History of Present Illness H&P Date: 01/15/18 Chief Complaint: Altered mental status This is a 57-year-old male with a known history of myocardial infarction, ischemic any myopathy with an AICD, insulin-dependent diabetes mellitus, hyperlipidemia, hypertension, obstructive apnea, COPD, chronic kidney disease and bipolar. Patient was brought into the emergency room due to altered mental status changes. He is a poor historian. Patient was found to be fluid overloaded and evidence of pulmonary edema. He was started on IV Lasix. He is currently in the ICU. Followed closely by pulmonary service and cardiology service. Cardiology was consulted due to elevated troponins. Patient remains on IV heparin. Per nursing staff patient's roommate had found patient on the ground without his oxygen. It also appears that patient may be taking his Seroquel and Ultram at the same time contributing to some of his confusion as well. Patient's did report that he had some shaking like possible seizure-like tremors before he passed out. Neurology has been consulted. There were concerns about possible pneumonia in the emergency room and he was started on IV antibiotics azithromycin and Rocephin. He also had evidence of hypoxic respiratory failure was 82% on room air. Computed tomography scan of the brain was negative. White count elevated at 15.5 and creatinine elevated at 2.63. This morning during patient's evaluation patient was very lethargic. He was arousable and would answer one question a time and fall asleep. He was able to report that he did not have any chest pain or shortness of breath. Review of Systems Please refer to HPI otherwise unremarkable Past Medical History Past Medical History: Coronary Artery Disease (CAD), Chest Pain / Angina, Heart Failure, COPD, Diabetes Mellitus, Hyperlipidemia, Hypertension, Myocardial Infarction (SC), Pneumonia, Renal Disease, Sleep Apnea/CPAP/BIPAP Additional Past Medical History / Comment(s): COPD, suspected obstructive sleep apnea, chronic hypoxic and hypercapnic the story failure, insulin-dependent diabetes mellitus, diabetic peripheral neuropathy, diabetic nephropathy, chronic renal failure with stage III chronic kidney disease with a baseline creatinine of 1.6-1.7, history of CHF and based on that echocardiogram that was done in 2018, the patient had a ejection fraction of 40-45%, history of severe ischemic cardiac myopathy and the patient has a AICD in place, coronary artery disease, hypertension, hyperlipidemia, depression him a previous history of acute respiratory failure requiring intubation mechanical ventilation, bipolar disorder, right ankle sprain wearing a immobilizing boot on outpatient basis Last Myocardial Infarction Date:: 2004 History of Any Multi-Drug Resistant Organisms: None Reported Past Surgical History: AICD, Heart Catheterization With Stent, Pacemaker Past Anesthesia/Blood Transfusion Reactions: No Reported Reaction Date of Last Stent Placement:: 2004 Type of Cardiac Device: Permanent Pacemaker, AICD Device Placement Date:: 09/2004 Past Psychological History: Bipolar Smoking Status: Former smoker Past Alcohol Use History: None Reported Past Drug Use History: None Reported - Past Family History Father Family Medical History: Cancer Additional Family Medical History / Comment(s): Paternal grandfather with CAD Mother Family Medical History: Cancer Additional Family Medical History / Comment(s): Maternal grandmother had CAD. Mother had cancer. Medications and Allergies Home Medications Medication Instructions Recorded Confirmed Type Gabapentin [Neurontin] 300 mg PO DAILY 01/05/16 01/14/18 History amLODIPine [Norvasc] 10 mg PO DAILY 01/05/16 01/14/18 History traZODone HCL [Desyrel] 200 mg PO HS 01/05/16 01/14/18 History Allopurinol [Zyloprim] 100 mg PO DAILY 05/21/17 01/14/18 History Escitalopram [Lexapro] 10 mg PO DAILY 05/21/17 01/14/18 History QUEtiapine [SEROquel] 200 mg PO HS 05/21/17 01/14/18 History Insulin Aspart [NovoLOG Flexpen] 4 units SQ AC-TID #120 ml 06/12/17 01/14/18 Rx Albuterol Inhaler [Ventolin Hfa 2 puff INHALATION RT-QID PRN 11/25/17 01/14/18 History Inhaler] Fluticasone/Vilanterol [Breo 1 puff INHALATION RT-DAILY 11/25/17 01/14/18 History Ellipta 100-25 Mcg Inhaler] Pregabalin [Lyrica] 75 mg PO BID 11/25/17 01/14/18 History hydrALAZINE HCL [Apresoline] 25 mg PO TID 12/07/17 01/14/18 History Carvedilol [Coreg] 3.125 mg PO BID-W/MEALS #60 tab 04/03/18 05/07/18 Rx Furosemide [Lasix] 40 mg PO DAILY #30 tab 12/11/17 01/14/18 Rx Losartan [Cozaar] 25 mg PO DAILY #30 tab 12/11/17 01/14/18 Rx cloNIDine HCL [Catapres] 0.2 mg PO BID #60 tab 12/11/17 01/14/18 Rx HYDROcodone/APAP 10-325MG [Garrett 1 tab PO TID PRN 01/14/18 01/14/18 History 10-325] Lisinopril [Prinivil] 20 mg PO DAILY 01/14/18 01/14/18 History Pravastatin Sodium [Pravachol] 40 mg PO HS 01/14/18 01/14/18 History Allergies Allergy/AdvReac Type Severity Reaction Status Date / Time Penicillins Allergy Unknown Verified 01/14/18 14:26 Physical Exam Vitals: Vital Signs Temp Pulse Resp BP Pulse Ox 01/15/18 14:00 94 18 157/82 90 L 01/15/18 13:16 82 01/15/18 13:08 94 01/15/18 13:00 88 15 154/96 93 L 01/15/18 12:12 90 L 01/15/18 12:00 98.6 F 85 13 140/90 87 L 01/15/18 11:59 12 01/15/18 11:00 89 12 141/82 92 L 01/15/18 10:00 90 14 142/109 92 L 01/15/18 09:00 82 18 167/95 92 L 01/15/18 08:00 98.6 F 90 20 164/91 93 L 01/15/18 07:58 22 01/15/18 07:29 94 01/15/18 07:22 102 H 01/15/18 07:21 102 H 01/15/18 07:12 97 93 L 01/15/18 07:00 110 H 22 140/80 90 L 01/15/18 06:00 95 18 148/88 90 L 01/15/18 05:00 105 H 13 133/69 92 L 01/15/18 04:00 99 F 101 H 13 124/72 94 L 01/15/18 03:00 105 H 11 L 135/72 90 L 01/15/18 02:00 114 H 18 163/100 96 01/15/18 01:00 110 H 18 141/90 96 01/15/18 00:00 98.1 F 105 H 19 169/87 96 01/14/18 23:30 108 H 18 153/96 97 01/14/18 23:00 118 H 20 173/93 95 01/14/18 22:30 106 H 19 162/95 97 01/14/18 22:00 113 H 18 149/88 98 01/14/18 21:32 98 01/14/18 21:30 112 H 14 98 01/14/18 21:20 98 12 164/94 97 01/14/18 21:10 95 17 98 01/14/18 21:00 99 16 173/90 97 01/14/18 20:50 98.2 F 99 12 94 L 01/14/18 20:26 114 H 01/14/18 20:18 110 H 01/14/18 20:07 104 H 01/14/18 20:05 101 H 22 140/82 97 01/14/18 19:54 97.4 F L 108 H 24 145/97 99 01/14/18 19:47 110 H 24 99 01/14/18 18:29 97.6 F 113 H 20 163/95 98 01/14/18 18:15 98.2 F 18 01/14/18 17:33 172/72 98 01/14/18 17:09 109 H 22 191/107 01/14/18 16:35 20 89 L 01/14/18 16:09 158/100 01/14/18 15:27 100 20 95 01/14/18 15:00 20 97 Intake and Output 01/14/18 01/15/18 01/15/18 22:59 06:59 14:59 Intake Total 520 302.285 160 Output Total 325 1825 1470 Balance 195 -1522.715 -1310 Intake: IV 20 160 160 0.9 KVO 20 160 160 Amount of Fluid Infused ( 500 ml) Intake, IV Titration 142.285 Amount Heparin Sodium,Porcine/ 142.285 D5w Pmx 25,000 unit In Dextrose/Water 1 500ml. bag @ 7.7 UNITS/KG/HR 19. 9 mls/hr IV .Q24H [facility] Rx# :[id number] Output: Urine 325 1825 1470 Other: Voiding Method Indwelling Catheter Indwelling Catheter Weight 129.3 kg 124.7 kg Head normocephalic Neck supple Lungs crackles at the bases Heart regular rate and rhythm S1-S2, no rub or gallop Abdomen is soft nontender nondistended positive bowel sounds no hepatosplenomegaly Extremities no edema Neuro arousable but lethargic. Results CBC & Chem 7: 01/15/18 02:20 01/15/18 02:20 Labs: Abnormal Lab Results - Last 24 Hours (Table) 01/14/18 01/14/18 01/14/18 Range/Units 14:10 14:10 15:36 WBC (3.8-10.6) k/uL RBC (4.30-5.90) m/uL Hct (39.0-53.0) % Plt Count (150-450) k/uL Neutrophils # (1.3-7.7) k/uL APTT 18.7 L (22.0-30.0) sec ABG pH (7.35-7.45) ABG pCO2 (35-45) mmHg ABG pO2 (83-108) mmHg ABG HCO3 (21-25) mmol/L ABG Total CO2 (19-24) mmol/L ABG O2 Saturation (94-97) % BUN (9-20) mg/dL Creatinine (0.66-1.25) mg/dL Glucose (74-99) mg/dL POC Glucose (mg/dL) (75-99) mg/dL Plasma Lactic Acid Rodney 2.1 H* (0.7-2.0) mmol/L Creatine Kinase (55-170) U/L Total Creatine Kinase 3002 H (55-170) U/L CK-MB (CK-2) 18.1 H* (0.0-2.4) ng/mL Troponin I 0.199 H* (0.000-0.034) ng/mL Urine Protein (Negative) Urine Blood (Negative) Hyaline Casts (0-2) /lpf Urine Mucus (None) /hpf Urine Yeast (Budding) (None) /hpf Urine Opiates Screen (NotDetected) U Tricyclic Antidepress (NotDetected) 01/14/18 01/14/18 01/14/18 Range/Units 15:40 16:19 20:46 WBC (3.8-10.6) k/uL RBC (4.30-5.90) m/uL Hct (39.0-53.0) % Plt Count (150-450) k/uL Neutrophils # (1.3-7.7) k/uL APTT (22.0-30.0) sec ABG pH 7.31 L (7.35-7.45) ABG pCO2 55 H (35-45) mmHg ABG pO2 48 L (83-108) mmHg ABG HCO3 28 H (21-25) mmol/L ABG Total CO2 29 H (19-24) mmol/L ABG O2 Saturation 82.3 L (94-97) % BUN (9-20) mg/dL Creatinine (0.66-1.25) mg/dL Glucose (74-99) mg/dL POC Glucose (mg/dL) 163 H (75-99) mg/dL Plasma Lactic Acid Rodney (0.7-2.0) mmol/L Creatine Kinase (55-170) U/L Total Creatine Kinase (55-170) U/L CK-MB (CK-2) (0.0-2.4) ng/mL Troponin I (0.000-0.034) ng/mL Urine Protein 2+ H (Negative) Urine Blood Small H (Negative) Hyaline Casts 4 H (0-2) /lpf Urine Mucus Rare H (None) /hpf Urine Yeast (Budding) Occasional H (None) /hpf Urine Opiates Screen Detected H (NotDetected) U Tricyclic Antidepress Detected H (NotDetected) 01/15/18 01/15/18 01/15/18 Range/Units 02:20 02:20 02:20 WBC 15.1 H (3.8-10.6) k/uL RBC 5.92 H (4.30-5.90) m/uL Hct 53.7 H (39.0-53.0) % Plt Count 106 L (150-450) k/uL Neutrophils # 12.5 H (1.3-7.7) k/uL APTT (22.0-30.0) sec ABG pH (7.35-7.45) ABG pCO2 (35-45) mmHg ABG pO2 (83-108) mmHg ABG HCO3 (21-25) mmol/L ABG Total CO2 (19-24) mmol/L ABG O2 Saturation (94-97) % BUN 36 H (9-20) mg/dL Creatinine 2.00 H (0.66-1.25) mg/dL Glucose 141 H (74-99) mg/dL POC Glucose (mg/dL) (75-99) mg/dL Plasma Lactic Acid Rodney (0.7-2.0) mmol/L Creatine Kinase (55-170) U/L Total Creatine Kinase (55-170) U/L CK-MB (CK-2) (0.0-2.4) ng/mL Troponin I 0.192 H* (0.000-0.034) ng/mL Urine Protein (Negative) Urine Blood (Negative) Hyaline Casts (0-2) /lpf Urine Mucus (None) /hpf Urine Yeast (Budding) (None) /hpf Urine Opiates Screen (NotDetected) U Tricyclic Antidepress (NotDetected) 01/15/18 01/15/18 01/15/18 Range/Units 02:20 07:52 08:58 WBC (3.8-10.6) k/uL RBC (4.30-5.90) m/uL Hct (39.0-53.0) % Plt Count (150-450) k/uL Neutrophils # (1.3-7.7) k/uL APTT 31.4 H (22.0-30.0) sec ABG pH (7.35-7.45) ABG pCO2 (35-45) mmHg ABG pO2 (83-108) mmHg ABG HCO3 (21-25) mmol/L ABG Total CO2 (19-24) mmol/L ABG O2 Saturation (94-97) % BUN (9-20) mg/dL Creatinine (0.66-1.25) mg/dL Glucose (74-99) mg/dL POC Glucose (mg/dL) 132 H (75-99) mg/dL Plasma Lactic Acid Rodney (0.7-2.0) mmol/L Creatine Kinase 1281 H (55-170) U/L Total Creatine Kinase (55-170) U/L CK-MB (CK-2) (0.0-2.4) ng/mL Troponin I (0.000-0.034) ng/mL Urine Protein (Negative) Urine Blood (Negative) Hyaline Casts (0-2) /lpf Urine Mucus (None) /hpf Urine Yeast (Budding) (None) /hpf Urine Opiates Screen (NotDetected) U Tricyclic Antidepress (NotDetected) 01/15/18 Range/Units 11:54 WBC (3.8-10.6) k/uL RBC (4.30-5.90) m/uL Hct (39.0-53.0) % Plt Count (150-450) k/uL Neutrophils # (1.3-7.7) k/uL APTT (22.0-30.0) sec ABG pH (7.35-7.45) ABG pCO2 (35-45) mmHg ABG pO2 (83-108) mmHg ABG HCO3 (21-25) mmol/L ABG Total CO2 (19-24) mmol/L ABG O2 Saturation (94-97) % BUN (9-20) mg/dL Creatinine (0.66-1.25) mg/dL Glucose (74-99) mg/dL POC Glucose (mg/dL) 133 H (75-99) mg/dL Plasma Lactic Acid Rodney (0.7-2.0) mmol/L Creatine Kinase (55-170) U/L Total Creatine Kinase (55-170) U/L CK-MB (CK-2) (0.0-2.4) ng/mL Troponin I (0.000-0.034) ng/mL Urine Protein (Negative) Urine Blood (Negative) Hyaline Casts (0-2) /lpf Urine Mucus (None) /hpf Urine Yeast (Budding) (None) /hpf Urine Opiates Screen (NotDetected) U Tricyclic Antidepress (NotDetected) Thrombosis Risk Factor Assmnt - Choose All That Apply Any of the Below Risk Factors Present?: Yes Each Factor Represents 1 point: Abnormal pulmonary function (COPD), Age 41-60 years Other Risk Factors: No Other congenital or acquired thrombophilia - If yes, enter type in comment: No Thrombosis Risk Factor Assessment Total Risk Factor Score: 2 Thrombosis Risk Factor Assessment Level: Low Risk Assessment and Plan Assessment: 1. Acute on hypoxic and hypercapnic respiratory failure secondary to pulmonary edema. Pulmonary service is following. Patient has required BiPAP. Currently on nasal cannula. 2. Acute toxic metabolic encephalopathy secondary to his hypoxia and possibly medications. Computed tomography scan of the brain was negative 3. Acute pulmonary edema: Patient is receiving IV Lasix 4. Elevated troponins: No chest pain. EKG showing no acute changes. Cardiology consulted. Patient remains on IV heparin. 5. History of COPD 6. Suspected obstructive sleep apnea 7. Coronary artery disease with previous stents 8. History of severe Ischemic cardiomyopathy with AICD 9. Possible seizure-like activity: And altered mental status. Neurology consulted. EEG ordered. 10. Possible pneumonia patient started on Rocephin and azithromycin in the emergency room 11. Essential hypertension with accelerated hypertension present on admission 12. Insulin-dependent diabetes mellitus: Blood sugars are stable with a sliding scale coverage. Patient has had poor oral intake 13. Acute rhabdomyolysis likely related to unknown period of time on the ground. CK levels 3000 on admission down to 1281. She was given a fluid bolus in the ER. Repeat CK levels in a.m. 14. Acute on chronic renal failure stage stage III DVT prophylaxis IV heparin and GI prophylaxis protonix Time with Patient: Greater than 30 (Greater than 50% of the total time spent in counseling and coordination of care.I performed an examination of the patient and discussed their management with the physician Positive Printer Operator. I have reviewed the Physician Positive Printer Operator's notes and agree with the documented findings and plan of care)
[2018-01-15 16:51] LABS: Glucose,Whole Blood 111 mg/dL (75-99)
[2018-01-15] MEDS ORDERED: AZITHROMYCIN 500 MG TAB PO SCH (17:00)
--- NOTE | 2018-01-15 17:00 | CONS ---
CONSULTATION Mr. Hurst is a 57-year-old gentleman who is seen for cardiac evaluation. The patient is currently hardly answering any questions. The history was obtained from the nurse taking care of the patient as well as from the chart and the previous medical records were reviewed. This patient has a known history of prior myocardial infarction, ischemic cardiomyopathy. AICD diabetes hyperlipidemia hypertension and chronic kidney disease. The patient was admitted with change in the mental status and hypoxia. The patient's chest x-ray was suggestive of pulmonary edema. Patient has been diuresed. Patient did not complain of any chest pain. It is possible that the patient has taken some combination of Seroquel and Ultram. At present, the patient is not in acute respiratory distress and denies any chest pain. PAST MEDICAL HISTORY: Includes a prior history of myocardial infarction, chronic kidney disease, ischemic cardiomyopathy, AICD placement, history of diabetes and chronic hypoxic and hypercapnic respiratory failure. History of bipolar disorder. HOME MEDICATIONS: Include Neurontin 300 mg daily. Norvasc 10 mg daily. Zyloprim Lexapro, Seroquel 200 mg daily. Ventolin inhaler. Lyrica, Coreg 3.125 mg b.i.d., Cozaar once a day. Catapres and the Prinivil. I am not sure if this patient's medication list is accurate as patient was taking a combination of Cozaar and Prinivil both. PHYSICAL EXAMINATION: At present reveals a 57-year-old, obesely built gentleman who is not in any acute respiratory distress at present. The patient's blood pressure is 140/98 mmHg, heart rate is 85, respirations are not labored. HEENT examination is negative. Chest is symmetrical. Heart: The PMI is not felt. First and second heart sounds are normal. LUNGS: Bilateral scattered rhonchi. Abdomen is soft. Extremities, peripheral pulses 1+. EKG shows normal sinus rhythm with possible old anterior wall myocardial infarction. Previous echocardiogram has showed ejection fraction in the range of 40- 45%. Chest x-ray suggestive of pulmonary edema. The patient's hemoglobin is 7.7. The arterial blood gases showed pH of 7.31, pCO2 was 55 and oxygen saturation was 82%. Patient's creatinine is 2.63. The patient's troponin is minimally elevated. FINAL IMPRESSION: 1. This patient has presented with a change in the mental status. Patient has acute pulmonary edema and acute hypoxic and hypercapnic respiratory failure. 2. Patient did not have any definite chest pain suggestive of acute coronary syndrome. An EKG does not show any acute ischemic changes. The patient has a minimal elevated troponin which is secondary to underlying cardiomyopathy and hypoxia and respiratory distress. 3. Overall picture is not suggestive of acute myocardial infarction. We will discontinue IV heparin, continue Lasix and nitro paste and current medications. At present, patient is intubated is on hold because of the patient's creatinine being 2.63. Thank you for this consultation. MMLOREL / IJN: [id number] /
[2018-01-15 17:04] LABS: Glucose,Whole Blood 101 mg/dL (75-99)
--- NOTE | 2018-01-15 18:45 | EEG ---
ELECTROENCEPHALOGRAM REPORT DATE OF SERVICE: 01/15/2018 REASON FOR TESTING: Altered mental status. DESCRIPTION OF THE PROCEDURE: This EEG was performed using a 21-channel digital electroencephalograph, following international 10-20 system. DESCRIPTION OF THE RECORDING: From the beginning of the tracing, and with the patient's eyes closed, the background rhythm was mostly consisting of 6-7 Hz theta frequency in the posterior occipital leads. No obvious asymmetry is seen. Frequent movement and muscle artifacts are seen. Photic stimulation was performed with no driving response seen. No pathological waves were elicited. Hyperventilation was not performed. The patient does reach stage II of sleep during the tracing and occasional sleep spindles are seen. No obvious epileptiform discharges were seen. His EKG lead showed a regular rate and rhythm. INTERPRETATION: This asleep and awake EEG is limited due to the frequency of movement and muscle artifacts The background rhythm was mostly consisting of theta activity, consistent with mild encephalopathy. No obvious epileptiform discharges were seen. The absence of epileptiform discharges does not rule out the diagnosis of epilepsy; therefore clinical correlation is recommended. MMPANTERA / JYOTI: [id number] /
[2018-01-15 19:02] LABS: Hemoglobin A1C 6.9 % (4.0-6.0)
[2018-01-15 20:51] LABS: Glucose,Whole Blood 110 mg/dL (75-99)
[2018-01-15] MEDS: PRAVASTATIN SODIUM 40 MG TAB PO SCH (21:12)
[2018-01-15] MEDS: QUEtiapine 200 MG TAB PO SCH (21:12)
[2018-01-15] MEDS: traZODone HCL 100 MG TAB PO SCH (21:13)
[2018-01-16 04:40] LABS: Calcium 8.8 mg/dL (8.4-10.2); HCT 52.5 % (39.0-53.0); HGB 15.8 gm/dL (13.0-17.5); Hypochromasia Moderate; MCH 27.9 pg (25.0-35.0); MCHC 30.2 g/dL (31.0-37.0); MCV 92.3 fL (80.0-100.0); Mean Platelet Volume 10.9; Platelet Count 108 k/uL (150-450); Potassium 4.3 mmol/L (3.5-5.1); RBC 5.69 m/uL (4.30-5.90); RDW 15.1 % (11.5-15.5)
[2018-01-16 05:02] LABS: Eosinophils # (M) 0.08 k/uL (0-0.7); Large Platelets Present; Monocytes # (M) 1.52 k/uL (0-1.0); Neutrophils % (M) 60 %; Nucleated Red Blood Cells 0 /100 WBC (0-0); Total Cells Counted 100
[2018-01-16] MEDS: CARVEDILOL 3.125 MG TAB PO SCH (06:36)
[2018-01-16] MEDS: NITROGLYCERIN OINT 1 INCH/GM PACKET TOPICAL SCH ×4 (06:37→23:49)
[2018-01-16] MEDS: IPRATROPIUM-ALBUTEROL 3 ML NEB INHALATION SCH ×3 (07:32→19:23)
[2018-01-16] MEDS: FORMOTEROL FUMARATE 20 MCG/2 ML NEBU INHALATION SCH ×2 (07:32→19:23)
[2018-01-16] MEDS: BUDESONIDE 0.5 MG/2 ML NEBU INHALATION SCH ×2 (07:33→19:23)
[2018-01-16 07:50] LABS: Glucose,Whole Blood 109 mg/dL (75-99)
[2018-01-16] MEDS: INSULIN ASPART 100 UNIT/ML 1 ML 10 ML VIAL SQ SCH ×4 (08:43→20:40)
[2018-01-16] MEDS: FUROSEMIDE 10 MG/ML 4 ML VIAL IV SCH ×3 (08:44→23:51)
[2018-01-16] MEDS: ALLOPURINOL 100 MG TAB PO SCH (08:46)
[2018-01-16] MEDS: amLODIPine 10 MG TAB PO SCH (08:46)
[2018-01-16] MEDS: PANTOPRAZOLE 40 MG/10 ML VIAL IVP SCH (08:47)
[2018-01-16] MEDS: ENOXAPARIN 40 MG/0.4 ML SYRINGE SQ SCH (08:47)
[2018-01-16] MEDS: GABAPENTIN 300 MG CAP PO SCH (08:47)
[2018-01-16] MEDS: cloNIDine HCL 0.2 MG TAB PO SCH ×2 (08:47→20:35)
[2018-01-16] MEDS: ESCITALOPRAM 10 MG TAB PO SCH (08:47)
[2018-01-16] MEDS: hydrALAZINE HCL 25 MG TAB PO SCH (08:48)
--- NOTE | 2018-01-16 09:00 | P.PN ---
Subjective Progress Note Date: 01/16/18 This is a 57-year-old male with a known history of myocardial infarction, ischemic any myopathy with an AICD, insulin-dependent diabetes mellitus, hyperlipidemia, hypertension, obstructive apnea, COPD, chronic kidney disease and bipolar. Patient was brought into the emergency room due to altered mental status changes. He is a poor historian. Patient was found to be fluid overloaded and evidence of pulmonary edema. He was started on IV Lasix. He is currently in the ICU. Followed closely by pulmonary service and cardiology service. Cardiology was consulted due to elevated troponins. Patient remains on IV heparin. Per nursing staff patient's roommate had found patient on the ground without his oxygen. It also appears that patient may be taking his Seroquel and Ultram at the same time contributing to some of his confusion as well. Patient's did report that he had some shaking like possible seizure-like tremors before he passed out. Neurology has been consulted. There were concerns about possible pneumonia in the emergency room and he was started on IV antibiotics azithromycin and Rocephin. He also had evidence of hypoxic respiratory failure was 82% on room air. Computed tomography scan of the brain was negative. White count elevated at 15.5 and creatinine elevated at 2.63. This morning during patient's evaluation patient was very lethargic. He was arousable and would answer one question a time and fall asleep. He was able to report that he did not have any chest pain or shortness of breath. On 01/16/2018 patient was seen and examined in the intensive care unit he is more alert, there is no fever or chills he denies any headache he denies any pain, he is able to eat his meals, there is no chest pain or shortness of breath no cough no nausea or vomiting no abdominal pain and no urinary symptoms , patient stated that he was having some shaking at home before he lost consciousness he said that this was witnessed by one of his friends Kris, EEG was done and did not reveal clear evidence of seizure activity neurology consult requested. Objective - Vital Signs Vital signs: Vital Signs Temp 97.1 F L 01/16/18 04:00 Pulse 84 01/16/18 08:00 Resp 14 01/16/18 08:00 BP 137/93 01/16/18 08:00 Pulse Ox 98 01/16/18 08:00 Intake & Output 01/15/18 01/16/18 01/16/18 18:59 06:59 18:59 Intake Total 240 740 20 Output Total 2290 1565 60 Balance -20495 -40 Weight 126.6 kg Intake: IV 240 240 20 0.9 KVO 240 240 20 Oral 500 Output: Urine 2290 1565 60 Other: Voiding Method Indwelling Catheter Indwelling Catheter - Exam HEENT head normocephalic and atraumatic Neck is supple no JVD no goiter Chest exam reveals a few scattered rhonchi no wheezing Cardiac exam reveals regular heart sounds no gallops no murmurs Abdomen is soft nontender no organomegaly Extremity exam reveals no edema no cyanosis or clubbing - Labs CBC & Chem 7: 01/16/18 04:02 01/16/18 04:02 Labs: Abnormal Lab Results - Last 24 Hours (Table) 01/15/18 01/15/18 01/15/18 Range/Units 02:20 02:20 08:58 MCHC (31.0-37.0) g/dL Plt Count (150-450) k/uL Monocytes # (Manual) (0-1.0) k/uL APTT 31.4 H (22.0-30.0) sec BUN (9-20) mg/dL Creatinine (0.66-1.25) mg/dL Glucose (74-99) mg/dL POC Glucose (mg/dL) (75-99) mg/dL Hemoglobin A1c 6.9 H (4.0-6.0) % Creatine Kinase 1281 H (55-170) U/L Troponin I (0.000-0.034) ng/mL 01/15/18 01/15/18 01/15/18 Range/Units 11:54 15:55 15:55 MCHC (31.0-37.0) g/dL Plt Count (150-450) k/uL Monocytes # (Manual) (0-1.0) k/uL APTT 35.2 H (22.0-30.0) sec BUN (9-20) mg/dL Creatinine (0.66-1.25) mg/dL Glucose (74-99) mg/dL POC Glucose (mg/dL) 133 H (75-99) mg/dL Hemoglobin A1c (4.0-6.0) % Creatine Kinase (55-170) U/L Troponin I 0.121 H* (0.000-0.034) ng/mL 01/15/18 01/15/18 01/15/18 Range/Units 16:49 17:03 20:50 MCHC (31.0-37.0) g/dL Plt Count (150-450) k/uL Monocytes # (Manual) (0-1.0) k/uL APTT (22.0-30.0) sec BUN (9-20) mg/dL Creatinine (0.66-1.25) mg/dL Glucose (74-99) mg/dL POC Glucose (mg/dL) 111 H 101 H 110 H (75-99) mg/dL Hemoglobin A1c (4.0-6.0) % Creatine Kinase (55-170) U/L Troponin I (0.000-0.034) ng/mL 01/16/18 01/16/18 01/16/18 Range/Units 04:02 04:02 07:47 MCHC 30.2 L (31.0-37.0) g/dL Plt Count 108 L (150-450) k/uL Monocytes # (Manual) 1.52 H (0-1.0) k/uL APTT (22.0-30.0) sec BUN 34 H (9-20) mg/dL Creatinine 1.70 H (0.66-1.25) mg/dL Glucose 112 H (74-99) mg/dL POC Glucose (mg/dL) 109 H (75-99) mg/dL Hemoglobin A1c (4.0-6.0) % Creatine Kinase 283 H (55-170) U/L Troponin I (0.000-0.034) ng/mL Microbiology - Last 24 Hours (Table) 01/14/18 17:40 Blood Culture - Preliminary Blood No Growth after 24 hours Assessment and Plan Plan: 1. Acute on hypoxic and hypercapnic respiratory failure secondary to pulmonary edema. Pulmonary service is following. Patient has required BiPAP. Currently on nasal cannula. Patient is improving he is off BiPAP at this time 2. Acute toxic metabolic encephalopathy secondary to his hypoxia and possibly medications. Computed tomography scan of the brain was negative 3. Acute pulmonary edema: Patient is receiving IV Lasix 4. Elevated troponins: No chest pain. EKG showing no acute changes. Cardiology consulted. Patient remains on IV heparin. 5. History of COPD 6. Suspected obstructive sleep apnea 7. Coronary artery disease with previous stents 8. History of severe Ischemic cardiomyopathy with AICD 9. Possible seizure-like activity: And altered mental status. Neurology consulted. EEG ordered. 10. Possible pneumonia patient started on Rocephin and azithromycin in the emergency room 11. Essential hypertension with accelerated hypertension present on admission 12. Insulin-dependent diabetes mellitus: Blood sugars are stable with a sliding scale coverage. Patient has had poor oral intake 13. Acute rhabdomyolysis likely related to unknown period of time on the ground. CK levels 3000 on admission down to 1281. She was given a fluid bolus in the ER. Repeat CK levels in a.m. 14. Acute on chronic renal failure stage stage III kidney function improving creatinine down to 1.7 today DVT prophylaxis IV heparin and GI prophylaxis protonix Continue with current management awaiting input from neurology
[2018-01-16] MEDS: PREGABALIN 75 MG CAP PO SCH ×2 (09:37→20:36)
--- NOTE | 2018-01-16 09:58 | CONS ---
CONSULTATION DATE OF CONSULTATION: 01/15/2018 CHIEF COMPLAINT: Altered mental status. HISTORY OF PRESENT ILLNESS: Mr. Hurst is a pleasant 57-year-old -[place] male who is being evaluated today on 01/15/2018 by the Neurology Service per the request of Dr. Regalado for altered mental status. The patient was brought into [facility] Emergency Room after he was found to be quite confused. According to the nursing staff, the patient was not using his oxygen supplementation at home. He does have history of advanced chronic obstructive pulmonary disease and was supposed to be on supplemental oxygen. There was also mentioned in the note that the patient had a syncopal episode. Jerking activity was noticed during that episode. The patient denies any history of seizures. In reviewing his home medications, he is on Ultram as needed for pain. In the emergency room, he was noticed to have fluid overload, acute renal insufficiency, and he was admitted to the intensive care unit for further management. He was started on BiPAP for his hypoxia and his altered mental status has completely resolved. A CT scan of the brain was done, which was normal. His CBC showed leukocytosis at 15.1, and thrombocytopenia at 106,000. His ABG showed a low PO2 at 48 and oxygen saturation at 82. His comprehensive metabolic profile showed elevated BUN at 36 and creatinine at 2.0. His cardiac enzymes showed elevated CPK at 1281 and elevated troponin at 0.192. A Cardiology consultation has been ordered. At the time of my evaluation, the patient is lying in his bed and appears to be in no acute distress. He continues to be on BiPAP. He is quite awake and oriented and denies any neurological complaints. PAST MEDICAL HISTORY: Coronary artery disease, angina, heart failure, chronic obstructive pulmonary disease, diabetes, dyslipidemia, hypertension, history of myocardial infarction, chronic renal disease, obstructive sleep apnea, pacemaker placement, depression, bipolar disorder. SOCIAL HISTORY: The patient is a former smoker. There is no history of any alcohol or drug use. FAMILY HISTORY: Positive for cancer. HOME MEDICATIONS: Reviewed in the chart. ALLERGIES: PENICILLIN. REVIEW OF SYSTEMS: As mentioned above and otherwise negative. PHYSICAL EXAM: Vital signs show a temperature of 98.6, pulse 88, respirations 17, blood pressure 131/91. GENERAL APPEARANCE: The patient is a mildly obese, -[place] male who appears to be in no acute distress. HEENT: Normocephalic, atraumatic, no facial asymmetry is seen, BiPAP mask is intact. NECK: Supple with no masses felt. CARDIOVASCULAR: Regular rate and rhythm. ABDOMEN: Nontender, nondistended. Extremities showed edema with no clubbing seen. NEUROLOGICAL EXAM: The patient is awake and oriented x3. Speech and language are normal. No lateralizing weakness is seen. Sensory exam was normal to light touch in all 4 extremities. No tremors or seizure-like activity is seen. No facial asymmetry is noticed on cranial nerve testing. INVESTIGATION: I did review his EEG which showed no epileptiform discharges. IMPRESSION: 1. Altered mental status. 2. Hypoxic encephalopathy. 3. Chronic obstructive pulmonary disease. 4. Chronic renal insufficiency. 5. Elevated cardiac enzymes. RECOMMENDATION: The patient's altered mental status has completely resolved with the use of BiPAP. He was likely confused due to his hypoxic event. Pulmonology is following the patient. The patient's syncope may have been due to his hypoxia. In reviewing his home medications, he is on Ultram and I do recommend discontinuing this medication due to its reduced seizure threshold adverse effect. No further neurological workup is needed. I will continue to follow with you as needed. Thank you, Dr. Regalado, for allowing me to participate in the care of your patient. If you have any questions, please feel free to contact me. MMPANTERA / IJN: [id number] /
--- NOTE | 2018-01-16 10:23 | XR ---
EXAMINATION TYPE: XR chest 1V portable DATE OF EXAM: 01/16/2018 COMPARISON: 01/15/2018 HISTORY: Shortness of breath and pulmonary edema. TECHNIQUE: Single frontal view of the chest is obtained. FINDINGS: Dual lead left-sided cardiac device and enlarged cardiomediastinal silhouette are unchange d from the prior. Right basilar and to a lesser degree left basilar opacities are similar to the prio r. Mild pulmonary vascular congestion remains. Osseous structures are grossly intact. IMPRESSION: Unchanged mild pulmonary vascular congestion and bibasilar opacities that may represent confluent pulmonary edema.
--- NOTE | 2018-01-16 12:28 | CDI ---
ACUTE ON CHRONIC SYSTOLIC CONGESTIVE HEART FAILURE, WITH LVEF OF 40-45%, PULMONARY EDEMA, AND ACUTE HYPOXIC RESPIRATORY FAILURE. Last Revision, August 2017 Documentation Clarification Form Date: 01/16/2018 12:24:00 PM From: Carol Levine CCS, CCDS Admit Date: 01/14/2018 4:39:00 PM Patient Name: Leonardo Hurst Visit Number: [id number] Discharge Date: ATTENTION: The Clinical Documentation Specialists (CDI) and [facility] Coding Staff appreciate your assistance in clarifying documentation. Please respond to the clarification below the line at the bottom and electronically sign. The CDI & [facility] Coding staff will review the response and follow-up if needed. Please note: Queries are made part of the Legal Health Record. If you have any questions, please contact the author of this message via ITS. Dr. Tess Regalado: Per your 01/14 pulmonary consult: "history of CHF and based on that echocardiogram that was done in 2017, the patient had a ejection fraction of 40- 45%, history of severe ischemic cardiac myopathy and the patient has a AICD in place..." History/Risk Factors: OR, Ischemic cardiomyopathy w/AICD, IDDM, Hyperlipidemia, Hypertension, DOUG, COPD & CKD. Clinical Indicators: Altered mental status, fluid overload & pulmonary edema, VSS. Home Meds include: Apresoline, Catapres, Norvasc, Cozaar, Lasix 40 mg po daily, Ellipta INH Chest X Ray: 01/14: Correlate for CHF exacerbation, there is cardiomegaly w/small bilateral pleural effusions, central edema and/or bilateral infiltrates. 01/15: CHF w/residual interstitial edema/pulmonary vascular congestion w/improvement. 01/16: Pulmonary vascular congestion. Treatment: IV Lasix, Nitropaste, IV Apresoline, BiPAP - O2 2Lnc. In your professional opinion, can you please clarify the acuity and type of CHF if known? Systolic Heart Failure: o Acute o Chronic o Acute on Chronic Diastolic Heart Failure: o Acute o Chronic o Acute on Chronic Systolic & Diastolic Heart Failure: o Acute o Chronic o Acute on Chronic Heart Failure Unable to Determine Other, please specify Please continue to document in your progress notes and discharge summary in order to capture severity of illness and risk of mortality. Include clinical findings that support your diagnosis. acute on top of chronic, systolic heart failure MTDD
[2018-01-16 12:54] LABS: Glucose,Whole Blood 142 mg/dL (75-99)
--- NOTE | 2018-01-16 13:15 | P.PN ---
Subjective Progress Note Date: 01/16/18 57-year-old male patient was brought into the emergency department because of altered mentation. The patient is a poor historian. The denied having any fever or chills. No nausea or vomiting. No chest pain. In the emergency department the patient was afebrile. Hemodynamically stable. Blood pressure was somewhat elevated with initial blood pressure 158/100. The patient had a chest x-ray that showed acute pulmonary edema. Nitroglycerin paste was applied and the patient was given IV Lasix and the patient was given hydralazine to control the blood pressure. The patient was also placed on a BiPAP and a pulmonary consultation was requested. The blood work showed a white cell count of 15.5. The blood gases showed a pH of 7.31 with a pCO2 of 55 and pO2 of 48 and this blood gases was done and FiO2 of 32%. The blood work also showed an acute on top of chronic renal failure with a creatinine of 2.6 knowing that the patient's baseline creatinine is around 1.5. The patient's potassium level was at 5.2. CPK was 3000. Troponin was 0.199 and a lactic acid level is at 2.1. The urinalysis showed +2 protein in the urine toxin was positive for opiates and tricyclics. Alcohol level was negative. The patient's EKG showed a normal sinus rhythm. The patient a right axis deviation and no other major abnormalities was noted. On 01/15/2018 patient seen in follow-up in intensive care unit. He reports his breathing improved, is currently off the BiPAP support, on 2 L per nasal cannula with O2 sat at 92%. Afebrile, hemodynamically stable, blood pressures are better controlled, with SBP in the 140's-160's and diastolic in the 90's/100 's. Patient is awake, alert, oriented 2, to place, person. Appears slightly withdrawn and a bit restless. Lung sounds reveal scattered rhonchi bilaterally , with fine rales at the bases. Today's chest x-ray shows CHF with residual interstitial edema/pulmonary vascular congestion, significantly improved from yesterday's exam. Today's blood work shows the BBC of 15.1, hemoglobin of 16.7 , electrolytes are within normal limits, BUN of 36, creatinine is 2.00. Patient had 2 positive sets of troponins, which topped at 0.199. CK-MBs were elevated at 18.1, with total creatinine kinase at 3002, patient was started on IV heparin last night, he is receiving Nitropaste 1 inch topical every 6 hours. He denies any chest pain. He does not recall his last heart catheterization, her he thinks he did have a heart catheterization in the past. We will consult cardiology in regards to patient's positive cardiac enzymes. On 01/16/2018 flori a the patient is being seen in follow-up. The patient is resting comfortably in bed. Less short of breath compared to yesterday. Continue to diurese with IV Lasix and her net fluid balance is -2.8 L over the past 12 hours. His chest x-ray shows improvement in the pulmonary edema. He is less lethargic compared to yesterday. He denies having any shortness of breath. He is currently off the BiPAP. He denies having any cough or sputum production or chest tightness or wheezing. He can hold a conversation. No focal neurological deficit. No fever or chills. No sweats. Renal function continues to improve in the creatinine is down to 1.7. The patient is on and off utilizing the BiPAP. It is suspected the patient has an underlying sleep breathing disorder. He was becoming more sleepy and drowsy with high dose of Seroquel and trazodone and I took the opportunity to stop the trazodone for now. His blood pressure under good control. Neurology evaluated the patient. A EEG was done and there was no evidence of any epileptic focus. Note that a CAT scan of the brain was also negative. Objective - Vital Signs Vital signs: Vital Signs Temp 98.0 F 01/16/18 12:00 Pulse 91 01/16/18 13:00 Resp 14 01/16/18 13:00 BP 121/79 01/16/18 13:00 Pulse Ox 96 01/16/18 13:00 Intake & Output 01/15/18 01/16/18 01/16/18 18:59 06:59 18:59 Intake Total 240 740 140 Output Total 2290 1565 1275 Balance -5 -823 -1723 Weight 126.6 kg Intake: IV 240 240 140 0.9 KVO 240 240 140 Oral 500 Output: Urine 2290 1565 1275 Other: Voiding Method Indwelling Catheter Indwelling Catheter - Exam On examination, the patient is more awake, oriented 3. Currently on 2 L per nasal cannula, and the patient is resting comfortably in bed. Head exam was generally normal. There was no scleral icterus or corneal arcus. Mucous membranes were moist. Neck was supple and without jugular venous distension, thyromegaly, or carotid bruits. Carotids were easily palpable bilaterally. There was no adenopathy. Lung sounds are positive for scattered rhonchi Heart sounds are regular, positive S1-S2 and there is no significant murmurs.Cardiac exam revealed the PMI to be normally situated and sized. The rhythm was regular and no extrasystoles were noted during several minutes of auscultation. The first and second heart sounds were normal and physiologic splitting of the second heart sound was noted. There were no murmurs, rubs, clicks, or gallops. Abdominal exam revealed normal bowel sounds. The abdomen was soft, non-tender, and without masses, organomegaly, or appreciable enlargement of the abdominal aorta. Extremities shows some erythema and warmth in the right lower extremities. Ankle and the knee mainly anteriorly and there is an area of superficial ulceration stage I. Equal and symmetrical pulses bilaterally. No cyanosis or clubbing. Psychiatric appropriate mood and affect. Skeletal examination the patient has a ankle sprain in the right lower extremity /ankle area. No obvious deformities Neurologic examination. The patient is more alert and awake compared to yesterday. He is oriented to time place and people. He is moving all 4 extremities without any limitation. No focal neurological deficit. Pupils are equal and reactive to light. No facial asymmetry. - Labs CBC & Chem 7: 01/16/18 04:02 01/16/18 04:02 Labs: Abnormal Lab Results - Last 24 Hours (Table) 01/15/18 01/15/18 01/15/18 Range/Units 02:20 15:55 15:55 MCHC (31.0-37.0) g/dL Plt Count (150-450) k/uL Monocytes # (Manual) (0-1.0) k/uL APTT 35.2 H (22.0-30.0) sec BUN (9-20) mg/dL Creatinine (0.66-1.25) mg/dL Glucose (74-99) mg/dL POC Glucose (mg/dL) (75-99) mg/dL Hemoglobin A1c 6.9 H (4.0-6.0) % Creatine Kinase (55-170) U/L Troponin I 0.121 H* (0.000-0.034) ng/mL 01/15/18 01/15/18 01/15/18 Range/Units 16:49 17:03 20:50 MCHC (31.0-37.0) g/dL Plt Count (150-450) k/uL Monocytes # (Manual) (0-1.0) k/uL APTT (22.0-30.0) sec BUN (9-20) mg/dL Creatinine (0.66-1.25) mg/dL Glucose (74-99) mg/dL POC Glucose (mg/dL) 111 H 101 H 110 H (75-99) mg/dL Hemoglobin A1c (4.0-6.0) % Creatine Kinase (55-170) U/L Troponin I (0.000-0.034) ng/mL 01/16/18 01/16/18 01/16/18 Range/Units 04:02 04:02 07:47 MCHC 30.2 L (31.0-37.0) g/dL Plt Count 108 L (150-450) k/uL Monocytes # (Manual) 1.52 H (0-1.0) k/uL APTT (22.0-30.0) sec BUN 34 H (9-20) mg/dL Creatinine 1.70 H (0.66-1.25) mg/dL Glucose 112 H (74-99) mg/dL POC Glucose (mg/dL) 109 H (75-99) mg/dL Hemoglobin A1c (4.0-6.0) % Creatine Kinase 283 H (55-170) U/L Troponin I (0.000-0.034) ng/mL 01/16/18 Range/Units 12:49 MCHC (31.0-37.0) g/dL Plt Count (150-450) k/uL Monocytes # (Manual) (0-1.0) k/uL APTT (22.0-30.0) sec BUN (9-20) mg/dL Creatinine (0.66-1.25) mg/dL Glucose (74-99) mg/dL POC Glucose (mg/dL) 142 H (75-99) mg/dL Hemoglobin A1c (4.0-6.0) % Creatine Kinase (55-170) U/L Troponin I (0.000-0.034) ng/mL Microbiology - Last 24 Hours (Table) 01/14/18 17:40 Blood Culture - Preliminary Blood No Growth after 24 hours Assessment and Plan Plan: 1 acute hypoxic and hypercapnic respiratory failure on top of a chronic hypoxic and hypercapnic respiratory failure. The patient is in acute pulmonary edema. The patient has developed diffuse breath and pulmonary infiltrates and currently is BiPAP dependent. He presented with hypertensive urgency/emergency with worsening shortness of breath and minimal troponin leak. EKG is not showing any acute ischemic changes and there is right axis deviation and sinus rhythm. 2 altered mental status secondary to above. Neuro workup including a CAT scan of the brain was negative. EEG was also negative and the patient did not have any seizure activity. The patient's mental status is gradually improving. 3 COPD 4 obstructive sleep apnea , suspected clinically. 5 coronary artery disease with previous coronary intervention and stenting 6 CHF with an ejection fraction 40-45% 7 previous history of severe ischemic cardiomyopathy and the patient has an AICD in place 8 chronic renal failure with stage III chronic kidney disease and the patient has developed acute kidney injury on top of his chronic renal failure , and the creatinine continues to improve. 9 diabetes mellitus, insulin-dependent with diabetic neuropathy and nephropathy 10 right ankle sprain 11 hypertension 12 hyperlipidemia 13 depression/bipolar disorder Plan Stop the trazodone. May utilize BiPAP on and off especially at nighttime knowing and the patient may have an underlying obstructive sleep apnea. Continue IV Lasix for another 24 hours. Keep the patient negative fluid balance. Chest x-ray findings improved. No significant respiratory distress at this point in time. Renal function continues to improve. Stop the Rocephin. Stop the Zithromax. Continue with IV Lasix. Rest of the medication will be kept unchanged. We'll continue to follow. Neurology input was appreciated and the patient had an EGD did came back negative. He'll be kept in ICU for 24 hours unless beds are needed.
--- NOTE | 2018-01-16 13:16 | PN ---
PROGRESS NOTE This patient was admitted with change in the mental status. The patient is much more alert today. He does not have any more fever or chills. He denies any shortness of breath. The chest x-ray was repeated today which is suggestive of mild heart failure. There is no definite evidence of pneumonia. The patient's IV antibiotics are discontinued. The patient is afebrile. Blood pressure is now 137/93 mmHg. First and second heart sounds are normal. Lungs reveal few scattered wheezes. Abdomen is soft. The patient has a hemoglobin is 15.8, a creatinine of 1.7. We will recheck the BNP level. Continue the patient on IV Lasix 40 mg q.8h hourly, hydralazine will be increased to 50 mg t.i.d. for the better control of the blood pressure. MMODL / IJN: [id number] /
--- NOTE | 2018-01-16 14:27 | P.PN ---
Subjective Progress Note Date: 01/16/18 Principal diagnosis: Altered mental status This is a pleasant 7-year-old -[place] male continuing to be evaluated by the neurology service for altered mental status. Recall that he has a significant history of advanced COPD on supplemental oxygen. He had not been using his oxygen. His friend found him and his home quite confused. There was mention of some possible jerking type activity. Clarification by the patient today reveals that he has frequent tremor when his oxygen level is low. He believes this was the shaking that his friend was witnessing. However, we reviewed his home medications and he was on Ultram. Ultram can decrease seizure threshold so this is being held. He has had no complaints of seizure- like activity since admission. Nursing staff confirm there has been no seizure activity. There was some concern over possible postictal state and previous admissions. His EEGs have been normal. He continues to deny any distinct seizure activity. Objective - Vital Signs Vital signs: Vital Signs Temp 98.0 F 01/16/18 12:00 Pulse 84 01/16/18 13:49 Resp 14 01/16/18 13:00 BP 121/79 01/16/18 13:00 Pulse Ox 96 01/16/18 13:00 Intake & Output 01/15/18 01/16/18 01/16/18 18:59 06:59 18:59 Intake Total 240 740 140 Output Total 2290 1565 1275 Balance -2050 -825 -1135 Weight 126.6 kg 126.6 kg Intake: IV 240 240 140 0.9 KVO 240 240 140 Oral 500 Output: Urine 2290 1565 1275 Other: Voiding Method Indwelling Catheter Indwelling Catheter Indwelling Catheter - Constitutional General appearance: Present: cooperative, no acute distress - EENT Eyes: Present: EOMI, PERRLA. Absent: abnormal pupil ENT: Present: hearing grossly normal - Neck Neck: Present: normal ROM. Absent: rigidity - Respiratory Respiratory: negative: prolonged expiration, prolonged inspiration - Cardiovascular Rhythm: regular - Gastrointestinal General gastrointestinal: Absent: distended, tenderness - Neurologic Neurologic Comment(s): The patient is alert awake and oriented 3. Speech and language are normal. There is no facial asymmetry. Strength is 5 out of 5 in bilateral upper and lower extremities. There is no sensory deficit. No tremors or seizures are seen. Cranial nerves II through XII are intact globally. - Labs CBC & Chem 7: 01/16/18 04:02 01/16/18 04:02 Labs: Abnormal Lab Results - Last 24 Hours (Table) 01/15/18 01/15/18 01/15/18 Range/Units 02:20 15:55 15:55 MCHC (31.0-37.0) g/dL Plt Count (150-450) k/uL Monocytes # (Manual) (0-1.0) k/uL APTT 35.2 H (22.0-30.0) sec BUN (9-20) mg/dL Creatinine (0.66-1.25) mg/dL Glucose (74-99) mg/dL POC Glucose (mg/dL) (75-99) mg/dL Hemoglobin A1c 6.9 H (4.0-6.0) % Creatine Kinase (55-170) U/L Troponin I 0.121 H* (0.000-0.034) ng/mL 01/15/18 01/15/18 01/15/18 Range/Units 16:49 17:03 20:50 MCHC (31.0-37.0) g/dL Plt Count (150-450) k/uL Monocytes # (Manual) (0-1.0) k/uL APTT (22.0-30.0) sec BUN (9-20) mg/dL Creatinine (0.66-1.25) mg/dL Glucose (74-99) mg/dL POC Glucose (mg/dL) 111 H 101 H 110 H (75-99) mg/dL Hemoglobin A1c (4.0-6.0) % Creatine Kinase (55-170) U/L Troponin I (0.000-0.034) ng/mL 01/16/18 01/16/18 01/16/18 Range/Units 04:02 04:02 07:47 MCHC 30.2 L (31.0-37.0) g/dL Plt Count 108 L (150-450) k/uL Monocytes # (Manual) 1.52 H (0-1.0) k/uL APTT (22.0-30.0) sec BUN 34 H (9-20) mg/dL Creatinine 1.70 H (0.66-1.25) mg/dL Glucose 112 H (74-99) mg/dL POC Glucose (mg/dL) 109 H (75-99) mg/dL Hemoglobin A1c (4.0-6.0) % Creatine Kinase 283 H (55-170) U/L Troponin I (0.000-0.034) ng/mL 01/16/18 Range/Units 12:49 MCHC (31.0-37.0) g/dL Plt Count (150-450) k/uL Monocytes # (Manual) (0-1.0) k/uL APTT (22.0-30.0) sec BUN (9-20) mg/dL Creatinine (0.66-1.25) mg/dL Glucose (74-99) mg/dL POC Glucose (mg/dL) 142 H (75-99) mg/dL Hemoglobin A1c (4.0-6.0) % Creatine Kinase (55-170) U/L Troponin I (0.000-0.034) ng/mL Microbiology - Last 24 Hours (Table) 01/14/18 17:40 Blood Culture - Preliminary Blood No Growth after 24 hours Assessment and Plan (1) Altered mental status Current Visit: Yes Status: Resolved Code(s): R41.82 - ALTERED MENTAL STATUS , UNSPECIFIED SNOMED Code(s): 481770231 (2) Hypoxia Current Visit: Yes Status: Acute Code(s): R09.02 - HYPOXEMIA SNOMED Code(s ): 012697511 (3) COPD (chronic obstructive pulmonary disease) Current Visit: No Status: Chronic Code(s): J44.9 - CHRONIC OBSTRUCTIVE PULMONARY DISEASE, UNSPECIFIED SNOMED Code(s): 01016343 (4) Hypoxic encephalopathy Current Visit: No Status: Suspected Code(s): G93.1 - ANOXIC BRAIN DAMAGE, NOT ELSEWHERE CLASSIFIED SNOMED Code(s): 348549977 Plan: Patient's mental status is back to normal. This was likely confusion from a hypoxic event. Pulmonology will continue to follow. After reviewing his history and discussing with Dr. Sosa we do not believe he needs to be started on any antiepileptic medication. We do recommend discontinuation of Ultram. Continue to monitor the ICU report any potential seizure activity. Otherwise no further neurological workup is needed. I have performed a history and physical on the above patient. I have reviewed the above note, and agree.
[2018-01-16] MEDS: hydrALAZINE HCL 50 MG TAB PO SCH ×2 (16:43→22:07)
[2018-01-16 17:39] LABS: Glucose,Whole Blood 111 mg/dL (75-99)
[2018-01-16] MEDS: CARVEDILOL 6.25 MG TAB PO SCH (17:41)
[2018-01-16] MEDS: PRAVASTATIN SODIUM 40 MG TAB PO SCH (20:35)
[2018-01-16] MEDS: QUEtiapine 200 MG TAB PO SCH (20:36)
[2018-01-16 20:40] LABS: Glucose,Whole Blood 163 mg/dL (75-99)
[2018-01-17] MEDS: cefTRIAXone IN SWFI 1,000 MG/10 ML SYRINGE IVP SCH (00:06)
[2018-01-17 06:04] LABS: Glucose,Whole Blood 105 mg/dL (75-99)
[2018-01-17] MEDS: INSULIN ASPART 100 UNIT/ML 1 ML 10 ML VIAL SQ SCH ×4 (06:09→21:10)
[2018-01-17] MEDS: NITROGLYCERIN OINT 1 INCH/GM PACKET TOPICAL SCH (06:09)
[2018-01-17 06:19] LABS: HCT 51.9 % (39.0-53.0); HGB 16.4 gm/dL (13.0-17.5); Hypochromasia Slight; MCH 28.7 pg (25.0-35.0); MCHC 31.5 g/dL (31.0-37.0); MCV 91.1 fL (80.0-100.0); Mean Platelet Volume 11.7; Platelet Count 104 k/uL (150-450); RBC 5.69 m/uL (4.30-5.90); RDW 14.9 % (11.5-15.5); WBC 6.5 k/uL (3.8-10.6)
[2018-01-17 06:29] LABS: Albumin 3.2 g/dL (3.5-5.0); Calcium 8.9 mg/dL (8.4-10.2); Potassium 4.8 mmol/L (3.5-5.1); Total Bilirubin 0.5 mg/dL (0.2-1.3); Total Protein 5.6 g/dL (6.3-8.2)
[2018-01-17] MEDS: PANTOPRAZOLE 40 MG TABLET PO SCH (06:33)
[2018-01-17] MEDS: CARVEDILOL 6.25 MG TAB PO SCH (06:33)
[2018-01-17 07:16] LABS: Eosinophils # (M) 0.26 k/uL (0-0.7); Lymphocytes # (M) 1.95 k/uL (1.0-4.8); Monocytes # (M) 0.91 k/uL (0-1.0); Neutrophils # (M) 3.38 k/uL (1.3-7.7); Neutrophils % (M) 52 %; Nucleated Red Blood Cells 0 /100 WBC (0-0); Total Cells Counted 100
[2018-01-17] MEDS: IPRATROPIUM-ALBUTEROL 3 ML NEB INHALATION SCH ×3 (07:41→20:27)
[2018-01-17] MEDS: BUDESONIDE 0.5 MG/2 ML NEBU INHALATION SCH ×2 (07:41→20:27)
[2018-01-17] MEDS: FORMOTEROL FUMARATE 20 MCG/2 ML NEBU INHALATION SCH ×2 (07:41→20:27)
[2018-01-17] MEDS: FUROSEMIDE 10 MG/ML 4 ML VIAL IV SCH ×3 (08:25→23:59)
[2018-01-17] MEDS: hydrALAZINE HCL 50 MG TAB PO SCH ×3 (09:08→20:36)
[2018-01-17] MEDS: ESCITALOPRAM 10 MG TAB PO SCH (09:09)
[2018-01-17] MEDS: ALLOPURINOL 100 MG TAB PO SCH (09:10)
[2018-01-17] MEDS: amLODIPine 10 MG TAB PO SCH (09:10)
[2018-01-17] MEDS: ENOXAPARIN 40 MG/0.4 ML SYRINGE SQ SCH (09:10)
[2018-01-17] MEDS: cloNIDine HCL 0.2 MG TAB PO SCH ×2 (09:10→21:43)
[2018-01-17] MEDS: PREGABALIN 75 MG CAP PO SCH ×2 (09:12→20:36)
[2018-01-17 11:31] LABS: Glucose,Whole Blood 162 mg/dL (75-99)
[2018-01-17] MEDS ORDERED: CARVEDILOL 6.25 MG TAB PO ONE (12:15)
--- NOTE | 2018-01-17 13:38 | P.PN ---
Subjective Progress Note Date: 01/17/18 Principal diagnosis: Acute on chronic hypoxic and hypercapnic respiratory failure secondary to acute pulmonary edema, hypertensive urgency. 57-year-old male patient was brought into the emergency department because of altered mentation. The patient is a poor historian. The denied having any fever or chills. No nausea or vomiting. No chest pain. In the emergency department the patient was afebrile. Hemodynamically stable. Blood pressure was somewhat elevated with initial blood pressure 158/100. The patient had a chest x-ray that showed acute pulmonary edema. Nitroglycerin paste was applied and the patient was given IV Lasix and the patient was given hydralazine to control the blood pressure. The patient was also placed on a BiPAP and a pulmonary consultation was requested. The blood work showed a white cell count of 15.5. The blood gases showed a pH of 7.31 with a pCO2 of 55 and pO2 of 48 and this blood gases was done and FiO2 of 32%. The blood work also showed an acute on top of chronic renal failure with a creatinine of 2.6 knowing that the patient's baseline creatinine is around 1.5. The patient's potassium level was at 5.2. CPK was 3000. Troponin was 0.199 and a lactic acid level is at 2.1. The urinalysis showed +2 protein in the urine toxin was positive for opiates and tricyclics. Alcohol level was negative. The patient's EKG showed a normal sinus rhythm. The patient a right axis deviation and no other major abnormalities was noted. On 01/15/2018 patient seen in follow-up in intensive care unit. He reports his breathing improved, is currently off the BiPAP support, on 2 L per nasal cannula with O2 sat at 92%. Afebrile, hemodynamically stable, blood pressures are better controlled, with SBP in the 140's-160's and diastolic in the 90's/100 's. Patient is awake, alert, oriented 2, to place, person. Appears slightly withdrawn and a bit restless. Lung sounds reveal scattered rhonchi bilaterally , with fine rales at the bases. Today's chest x-ray shows CHF with residual interstitial edema/pulmonary vascular congestion, significantly improved from yesterday's exam. Today's blood work shows the BBC of 15.1, hemoglobin of 16.7 , electrolytes are within normal limits, BUN of 36, creatinine is 2.00. Patient had 2 positive sets of troponins, which topped at 0.199. CK-MBs were elevated at 18.1, with total creatinine kinase at 3002, patient was started on IV heparin last night, he is receiving Nitropaste 1 inch topical every 6 hours. He denies any chest pain. He does not recall his last heart catheterization, her he thinks he did have a heart catheterization in the past. We will consult cardiology in regards to patient's positive cardiac enzymes. On 01/16/2018 him a the patient is being seen in follow-up. The patient is resting comfortably in bed. Less short of breath compared to yesterday. Continue to diurese with IV Lasix and her net fluid balance is -2.8 L over the past 12 hours. His chest x-ray shows improvement in the pulmonary edema. He is less lethargic compared to yesterday. He denies having any shortness of breath. He is currently off the BiPAP. He denies having any cough or sputum production or chest tightness or wheezing. He can hold a conversation. No focal neurological deficit. No fever or chills. No sweats. Renal function continues to improve in the creatinine is down to 1.7. The patient is on and off utilizing the BiPAP. It is suspected the patient has an underlying sleep breathing disorder. He was becoming more sleepy and drowsy with high dose of Seroquel and trazodone and I took the opportunity to stop the trazodone for now. His blood pressure under good control. Neurology evaluated the patient. A EEG was done and there was no evidence of any epileptic focus. Note that a CAT scan of the brain was also negative. On 01/17/2018 patient seen in follow-up on the selective care floor. He is awake alert, in no acute distress. He continues on IV diuretics, remains on IV Lasix at 40 mg IV every 8 hours. He is net fluid balance is -1955 over last 24 hours. Lung sounds are positive for bibasilar rhonchi, no wheezes. Yesterday chest x-ray showed mild pulmonary vessel congestion and bibasilar opacities consistent with confluent pulmonary edema. His FiO2 is currently at 8 L per nasal cannula, unable to wean , patient does desaturate even on 6 L per nasal cannula below 88%. No peripheral edema noted, days lab work shows a WBC of 6.5 , hemoglobin of 16.4, sodium of 142, potassium is 4.8, carbon dioxide is 31, BUN is 43, creatinine is 1.80. Patient's affect flat, and is answering questions, poor eye contact. No shakiness, restlessness or jerkiness noted on today's exam. Patient was seen in consultation by neurology, and his EEG has been normal. Patient's Ultram was discontinued. Patient's blood pressure is better controlled, with SBP ranging from 115 to 138, and DBP ranging from 70's- 90's. he remains stable, continue IV diuresis continue nebulized bronchodilators. Objective - Vital Signs Vital signs: Vital Signs Temp 97.1 F L 01/17/18 08:30 Pulse 88 01/17/18 13:23 Resp 20 01/17/18 08:30 BP 138/93 01/17/18 08:30 Pulse Ox 89 L 01/17/18 08:30 Intake & Output 01/16/18 01/17/18 01/17/18 18:59 06:59 18:59 Intake Total 200 0 Output Total 1405 750 Balance -1205 -750 Weight 126.6 kg 125.2 kg Intake: IV 200 0.9 KVO 200 Oral 0 Output: Urine 1405 750 Other: Voiding Method Indwelling Catheter Urinal Urinal - Exam On examination, the patient is more awake, oriented 2, to person and place. Currently on 2 L per nasal cannula, denies any acute respiratory distress. Denies any chest pain Head exam was generally normal. There was no scleral icterus or corneal arcus. Mucous membranes were moist. Neck was supple and without jugular venous distension, thyromegaly, or carotid bruits. Carotids were easily palpable bilaterally. There was no adenopathy. Lung sounds are positive for scattered rhonchi, no wheezes noted on today's exam Heart sounds are regular, positive S1-S2 and there is no significant murmurs.Cardiac exam revealed the PMI to be normally situated and sized. The rhythm was regular and no extrasystoles were noted during several minutes of auscultation. The first and second heart sounds were normal and physiologic splitting of the second heart sound was noted. There were no murmurs, rubs, clicks, or gallops. Abdominal exam revealed normal bowel sounds. The abdomen was soft, non-tender, and without masses, organomegaly, or appreciable enlargement of the abdominal aorta. Extremities shows some erythema and warmth in the right lower extremities. Ankle and the knee mainly anteriorly and there is an area of superficial ulceration stage I. Equal and symmetrical pulses bilaterally. No cyanosis or clubbing. Psychiatric history cannot be obtained. Skeletal examination the patient has a ankle sprain in the right lower extremity /ankle area. No obvious deformities Neurologic examination. The patient is having altered mentation. He follows simple commands. Unable to carry a full conversation as the patient is currently short of breath on a full face BiPAP mask. The patient is moving all 4 extremities without any limitation. No cranial nerve deficits. - Labs CBC & Chem 7: 01/17/18 06:05 01/17/18 06:05 Labs: Abnormal Lab Results - Last 24 Hours (Table) 01/16/18 01/16/18 01/17/18 Range/Units 17:37 20:37 06:02 Plt Count (150-450) k/uL Carbon Dioxide (22-30) mmol/L BUN (9-20) mg/dL Creatinine (0.66-1.25) mg/dL Glucose (74-99) mg/dL POC Glucose (mg/dL) 111 H 163 H 105 H (75-99) mg/dL ALT (21-72) U/L Total Protein (6.3-8.2) g/dL Albumin (3.5-5.0) g/dL 01/17/18 01/17/18 01/17/18 Range/Units 06:05 06:05 11:28 Plt Count 104 L (150-450) k/uL Carbon Dioxide 31 H (22-30) mmol/L BUN 43 H (9-20) mg/dL Creatinine 1.80 H (0.66-1.25) mg/dL Glucose 110 H (74-99) mg/dL POC Glucose (mg/dL) 162 H (75-99) mg/dL ALT 20 L (21-72) U/L Total Protein 5.6 L (6.3-8.2) g/dL Albumin 3.2 L (3.5-5.0) g/dL Microbiology - Last 24 Hours (Table) 01/14/18 17:40 Blood Culture - Preliminary Blood No Growth after 48 hours Assessment and Plan Plan: Assessment 1 acute hypoxic and hypercapnic respiratory failure on top of a chronic hypoxic and hypercapnic respiratory failure. The patient is in acute pulmonary edema. The patient has developed diffuse breath and pulmonary infiltrates and currently is BiPAP dependent. He presented with hypertensive urgency/emergency with worsening shortness of breath and minimal troponin leak. EKG is not showing any acute ischemic changes and there is right axis deviation and sinus rhythm. 2 altered mental status secondary to above. Neuro workup including a CAT scan of the brain was negative 3 COPD 4 obstructive sleep apnea suspected 5 coronary artery disease with previous coronary intervention and stenting 6 CHF with an ejection fraction 40-45% 7 previous history of severe ischemic cardiomyopathy and the patient has an AICD in place 8 chronic renal failure with stage III chronic kidney disease and the patient has developed acute kidney injury on top of his chronic renal failure and the creatinine is up to 2.8. The patient is nonoliguric. 9 diabetes mellitus, insulin-dependent with diabetic neuropathy and nephropathy 10 right ankle sprain 11 hypertension 12 hyperlipidemia 13 depression/bipolar disorder Plan: Continue IV diuretics, continue nebulized bronchodilators, since blood pressure is under good control. Monitor renal function, we'll obtain a follow-up chest x- ray tomorrow morning. Increase activity as tolerated, sit up ain a chair, wean FiO2. There is deep breathing and coughing. I performed a history & physical examination of the patient and discussed their management with my nurse practitioner, Ysabel Macias. I reviewed the nurse practitioner's note and agree with the documented findings and plan of care. Lung sounds are positive for coarse rhonchi, and fine rales at the bases. The findings and the impression was discussed with the patient. I attest to the documentation by the nurse practitioner. Time with Patient: Less than 30
--- NOTE | 2018-01-17 13:45 | P.PN ---
Subjective This patient is admitted with the altered mental sensation feeling well denies any shortness of breath patient has a history of cardiomyopathy and AICD placement no acute respiratory distress is noted at present Objective - Vital Signs Vital signs: Vital Signs Temp 97.1 F L 01/17/18 08:30 Pulse 88 01/17/18 13:23 Resp 20 01/17/18 08:30 BP 138/93 01/17/18 08:30 Pulse Ox 89 L 01/17/18 08:30 Intake & Output 01/16/18 01/17/18 01/17/18 18:59 06:59 18:59 Intake Total 200 0 Output Total 1405 750 Balance -1205 -750 Weight 126.6 kg 125.2 kg Intake: IV 200 0.9 KVO 200 Oral 0 Output: Urine 1405 750 Other: Voiding Method Indwelling Catheter Urinal Urinal - Exam Patient's vital signs are reviewed. The patient is alert awake and in no acute distress. HEENT negative. Neck-supple no increase in JVP noted no carotid bruits noted. Chest-symmetrical. Heart-first and second heart sounds are normal. No S3 or S4 is noted. No significant murmurs are noted. Lungs bilateral good at entry is noted. No rales or rhonchi are noted Abdomen-soft. Liver and spleen are not enlarged. The bowel sounds are normal. No tenderness noted Extremities-peripheral pulses since are 2+. No significant leg edema noted. Neuro-no significant gross abnormality noted. - Labs CBC & Chem 7: 01/17/18 06:05 01/17/18 06:05 Labs: Abnormal Lab Results - Last 24 Hours (Table) 01/16/18 01/16/18 01/17/18 Range/Units 17:37 20:37 06:02 Plt Count (150-450) k/uL Carbon Dioxide (22-30) mmol/L BUN (9-20) mg/dL Creatinine (0.66-1.25) mg/dL Glucose (74-99) mg/dL POC Glucose (mg/dL) 111 H 163 H 105 H (75-99) mg/dL ALT (21-72) U/L Total Protein (6.3-8.2) g/dL Albumin (3.5-5.0) g/dL 01/17/18 01/17/18 01/17/18 Range/Units 06:05 06:05 11:28 Plt Count 104 L (150-450) k/uL Carbon Dioxide 31 H (22-30) mmol/L BUN 43 H (9-20) mg/dL Creatinine 1.80 H (0.66-1.25) mg/dL Glucose 110 H (74-99) mg/dL POC Glucose (mg/dL) 162 H (75-99) mg/dL ALT 20 L (21-72) U/L Total Protein 5.6 L (6.3-8.2) g/dL Albumin 3.2 L (3.5-5.0) g/dL Microbiology - Last 24 Hours (Table) 01/14/18 17:40 Blood Culture - Preliminary Blood No Growth after 48 hours Assessment and Plan Assessment: Patient's condition is improved we'll increase the dose of Coreg to 12.5 mg twice a day his and is advised to have a regular cardiac follow-up.
--- NOTE | 2018-01-17 14:52 | P.PN ---
Subjective Progress Note Date: 01/17/18 This is a 57-year-old male with a known history of myocardial infarction, ischemic any myopathy with an AICD, insulin-dependent diabetes mellitus, hyperlipidemia, hypertension, obstructive apnea, COPD, chronic kidney disease and bipolar. Patient was brought into the emergency room due to altered mental status changes. He is a poor historian. Patient was found to be fluid overloaded and evidence of pulmonary edema. He was started on IV Lasix. He is currently in the ICU. Followed closely by pulmonary service and cardiology service. Cardiology was consulted due to elevated troponins. Patient remains on IV heparin. Per nursing staff patient's roommate had found patient on the ground without his oxygen. It also appears that patient may be taking his Seroquel and Ultram at the same time contributing to some of his confusion as well. Patient's did report that he had some shaking like possible seizure-like tremors before he passed out. Neurology has been consulted. There were concerns about possible pneumonia in the emergency room and he was started on IV antibiotics azithromycin and Rocephin. He also had evidence of hypoxic respiratory failure was 82% on room air. Computed tomography scan of the brain was negative. White count elevated at 15.5 and creatinine elevated at 2.63. This morning during patient's evaluation patient was very lethargic. He was arousable and would answer one question a time and fall asleep. He was able to report that he did not have any chest pain or shortness of breath. On 01/16/2018 patient was seen and examined in the intensive care unit he is more alert, there is no fever or chills he denies any headache he denies any pain, he is able to eat his meals, there is no chest pain or shortness of breath no cough no nausea or vomiting no abdominal pain and no urinary symptoms , patient stated that he was having some shaking at home before he lost consciousness he said that this was witnessed by one of his friends Kris, EEG was done and did not reveal clear evidence of seizure activity neurology consult requested. 01/17/2018 patient was transferred out of the ICU to the sixth floor yesterday. He remains on IV Lasix. Cardiology has increased his hydralazine to 50 mg 3 times a day and also added Corag. He is currently off antibiotics. He is been seen by neurology they felt that his altered mental status changes was due to hypoxia and doubt any seizure activity. EEG was negative. Service has also discontinued the trazodone due to patient being so sleepy. Patient is more awake today. Denies any chest pain or shortness of breath. Denies any nausea or vomiting. Reports having bowel movements denies any difficulty urinating. Objective - Vital Signs Vital signs: Vital Signs Temp 97.1 F L 01/17/18 08:30 Pulse 88 01/17/18 13:23 Resp 20 01/17/18 08:30 BP 138/93 01/17/18 08:30 Pulse Ox 89 L 01/17/18 08:30 Intake & Output 01/16/18 01/17/18 01/17/18 18:59 06:59 18:59 Intake Total 200 0 800 Output Total 1405 750 Balance -1205 -750 800 Weight 126.6 kg 125.2 kg Intake: IV 200 0.9 KVO 200 Oral 0 800 Output: Urine 1405 750 Other: Voiding Method Indwelling Catheter Urinal Urinal # Voids 3 - Exam Head normocephalic Neck supple Lungs scattered rhonchi. No wheezing Heart regular rate and rhythm S1-S2, no rub or gallop Abdomen is soft nontender nondistended positive bowel sounds no hepatosplenomegaly Extremities no edema Neuro alert and orientated to 3 - Labs CBC & Chem 7: 01/17/18 06:05 01/17/18 06:05 Labs: Abnormal Lab Results - Last 24 Hours (Table) 01/16/18 01/16/18 01/17/18 Range/Units 17:37 20:37 06:02 Plt Count (150-450) k/uL Carbon Dioxide (22-30) mmol/L BUN (9-20) mg/dL Creatinine (0.66-1.25) mg/dL Glucose (74-99) mg/dL POC Glucose (mg/dL) 111 H 163 H 105 H (75-99) mg/dL ALT (21-72) U/L Total Protein (6.3-8.2) g/dL Albumin (3.5-5.0) g/dL 01/17/18 01/17/18 01/17/18 Range/Units 06:05 06:05 11:28 Plt Count 104 L (150-450) k/uL Carbon Dioxide 31 H (22-30) mmol/L BUN 43 H (9-20) mg/dL Creatinine 1.80 H (0.66-1.25) mg/dL Glucose 110 H (74-99) mg/dL POC Glucose (mg/dL) 162 H (75-99) mg/dL ALT 20 L (21-72) U/L Total Protein 5.6 L (6.3-8.2) g/dL Albumin 3.2 L (3.5-5.0) g/dL Microbiology - Last 24 Hours (Table) 01/14/18 17:40 Blood Culture - Preliminary Blood No Growth after 48 hours Assessment and Plan Assessment: 1. Acute on hypoxic and hypercapnic respiratory failure secondary to pulmonary edema. Pulmonary service is following. Patient has required BiPAP. Currently on nasal cannula. 2. Acute toxic metabolic encephalopathy secondary to his hypoxia and possibly medications. Computed tomography scan of the brain was negative 3. Acute pulmonary edema: Continue with IV Lasix 4. Elevated troponins: No chest pain. EKG showing no acute changes. He by cardiology. No longer on IV heparin 5. History of COPD 6. Suspected obstructive sleep apnea 7. Coronary artery disease with previous stents 8. History of severe Ischemic cardiomyopathy with AICD 9. Possible seizure-like activity: And altered mental status. EEG negative for seizure activity. Patient seen and evaluated by neurology. They felt patient's symptoms were likely related to his hypoxia 10. Pneumonia ruled out. Initially started on antibiotics in the ER. Likely' s related to patient's pulmonary edema. Patient is now off of antibiotics 11. Essential hypertension with accelerated hypertension present on admission 12. Insulin-dependent diabetes mellitus: Blood sugars are stable with a sliding scale coverage. Patient has had poor oral intake 13. Acute rhabdomyolysis likely related to unknown period of time on the ground. CK levels 3000 on admission down to 1281. CK levels have improved 14. Acute on chronic renal failure stage stage III DVT prophylaxis Lovenox and GI prophylaxis protonix Consult physical therapy and social work to evaluate patient for possible rehab. Anticipate discharge possibly tomorrow if cleared by consulting physicians I performed an examination of the patient and discussed their management with the physician Surfboard Maker. I have reviewed the Physician Surfboard Maker's notes and agree with the documented findings and plan of care
[2018-01-17 16:52] LABS: Glucose,Whole Blood 109 mg/dL (75-99)
[2018-01-17] MEDS: CARVEDILOL 12.5 MG TAB PO SCH (17:47)
[2018-01-17] MEDS: PRAVASTATIN SODIUM 40 MG TAB PO SCH (20:36)
[2018-01-17] MEDS: QUEtiapine 200 MG TAB PO SCH (20:37)
[2018-01-17 21:09] LABS: Glucose,Whole Blood 106 mg/dL (75-99)
[2018-01-18 05:57] LABS: HCT 53.5 % (39.0-53.0); HGB 16.2 gm/dL (13.0-17.5); Hypochromasia Moderate; MCH 27.7 pg (25.0-35.0); MCHC 30.4 g/dL (31.0-37.0); MCV 91.2 fL (80.0-100.0); Mean Platelet Volume 10.3; Platelet Count 107 k/uL (150-450); RBC 5.86 m/uL (4.30-5.90); WBC 6.2 k/uL (3.8-10.6)
[2018-01-18 06:07] LABS: Potassium 4.1 mmol/L (3.5-5.1)
[2018-01-18] MEDS: PANTOPRAZOLE 40 MG TABLET PO SCH (06:14)
[2018-01-18] MEDS: CARVEDILOL 12.5 MG TAB PO SCH ×2 (06:14→17:34)
[2018-01-18 06:17] LABS: Glucose,Whole Blood 110 mg/dL (75-99)
[2018-01-18 06:18] LABS: Eosinophils # (M) 0.06 k/uL (0-0.7); Lymphocytes # (M) 1.67 k/uL (1.0-4.8); Monocytes # (M) 0.68 k/uL (0-1.0); Neutrophils # (M) 3.78 k/uL (1.3-7.7); Neutrophils % (M) 61 %; Nucleated Red Blood Cells 0 /100 WBC (0-0); Total Cells Counted 100
[2018-01-18 06:19] LABS: Large Platelets Present
[2018-01-18] MEDS: INSULIN ASPART 100 UNIT/ML 1 ML 10 ML VIAL SQ SCH ×4 (06:23→21:42)
--- NOTE | 2018-01-18 07:26 | XR ---
EXAMINATION TYPE: XR chest 2V DATE OF EXAM: 01/18/2018 COMPARISON: 01/16/2018 HISTORY: Shortness of breath TECHNIQUE: Frontal and lateral views of the chest are obtained. FINDINGS: Scattered senescent parenchymal changes noted. Hyperinflation compatible with COPD. Patchy density right medial lung base may reflect developing infiltrate. Improved aeration left perih ilar region. Heart size is stable. Mediastinal structures are stable and grossly unremarkable. No evidence for hilar prominence. Degenerative changes dorsal spine. IMPRESSION: 1. Patchy density right medial lung base may reflect developing infiltrate. Improved aeration left pe rihilar region.
[2018-01-18] MEDS: BUDESONIDE 0.5 MG/2 ML NEBU INHALATION SCH ×2 (08:15→20:21)
[2018-01-18] MEDS: FORMOTEROL FUMARATE 20 MCG/2 ML NEBU INHALATION SCH ×2 (08:15→20:21)
[2018-01-18] MEDS: IPRATROPIUM-ALBUTEROL 3 ML NEB INHALATION SCH ×3 (08:15→20:21)
[2018-01-18] MEDS: FUROSEMIDE 10 MG/ML 4 ML VIAL IV SCH ×3 (08:17→23:12)
[2018-01-18] MEDS: hydrALAZINE HCL 50 MG TAB PO SCH ×3 (10:08→21:44)
[2018-01-18] MEDS: ENOXAPARIN 40 MG/0.4 ML SYRINGE SQ SCH ×2 (10:08→10:15)
[2018-01-18] MEDS: ESCITALOPRAM 10 MG TAB PO SCH (10:09)
[2018-01-18] MEDS: ALLOPURINOL 100 MG TAB PO SCH (10:09)
[2018-01-18] MEDS: cloNIDine HCL 0.2 MG TAB PO SCH ×2 (10:09→21:44)
[2018-01-18] MEDS: amLODIPine 10 MG TAB PO SCH (10:10)
[2018-01-18] MEDS: PREGABALIN 75 MG CAP PO SCH ×2 (10:16→21:47)
[2018-01-18 11:55] LABS: Glucose,Whole Blood 159 mg/dL (75-99)
--- NOTE | 2018-01-18 13:51 | P.PN ---
Subjective Progress Note Date: 01/18/18 57-year-old male patient was brought into the emergency department because of altered mentation. The patient is a poor historian. The denied having any fever or chills. No nausea or vomiting. No chest pain. In the emergency department the patient was afebrile. Hemodynamically stable. Blood pressure was somewhat elevated with initial blood pressure 158/100. The patient had a chest x-ray that showed acute pulmonary edema. Nitroglycerin paste was applied and the patient was given IV Lasix and the patient was given hydralazine to control the blood pressure. The patient was also placed on a BiPAP and a pulmonary consultation was requested. The blood work showed a white cell count of 15.5. The blood gases showed a pH of 7.31 with a pCO2 of 55 and pO2 of 48 and this blood gases was done and FiO2 of 32%. The blood work also showed an acute on top of chronic renal failure with a creatinine of 2.6 knowing that the patient's baseline creatinine is around 1.5. The patient's potassium level was at 5.2. CPK was 3000. Troponin was 0.199 and a lactic acid level is at 2.1. The urinalysis showed +2 protein in the urine toxin was positive for opiates and tricyclics. Alcohol level was negative. The patient's EKG showed a normal sinus rhythm. The patient a right axis deviation and no other major abnormalities was noted. On 01/15/2018 patient seen in follow-up in intensive care unit. He reports his breathing improved, is currently off the BiPAP support, on 2 L per nasal cannula with O2 sat at 92%. Afebrile, hemodynamically stable, blood pressures are better controlled, with SBP in the 140's-160's and diastolic in the 90's/100 's. Patient is awake, alert, oriented 2, to place, person. Appears slightly withdrawn and a bit restless. Lung sounds reveal scattered rhonchi bilaterally , with fine rales at the bases. Today's chest x-ray shows CHF with residual interstitial edema/pulmonary vascular congestion, significantly improved from yesterday's exam. Today's blood work shows the BBC of 15.1, hemoglobin of 16.7 , electrolytes are within normal limits, BUN of 36, creatinine is 2.00. Patient had 2 positive sets of troponins, which topped at 0.199. CK-MBs were elevated at 18.1, with total creatinine kinase at 3002, patient was started on IV heparin last night, he is receiving Nitropaste 1 inch topical every 6 hours. He denies any chest pain. He does not recall his last heart catheterization, her he thinks he did have a heart catheterization in the past. We will consult cardiology in regards to patient's positive cardiac enzymes. On 01/16/2018 him a the patient is being seen in follow-up. The patient is resting comfortably in bed. Less short of breath compared to yesterday. Continue to diurese with IV Lasix and her net fluid balance is -2.8 L over the past 12 hours. His chest x-ray shows improvement in the pulmonary edema. He is less lethargic compared to yesterday. He denies having any shortness of breath. He is currently off the BiPAP. He denies having any cough or sputum production or chest tightness or wheezing. He can hold a conversation. No focal neurological deficit. No fever or chills. No sweats. Renal function continues to improve in the creatinine is down to 1.7. The patient is on and off utilizing the BiPAP. It is suspected the patient has an underlying sleep breathing disorder. He was becoming more sleepy and drowsy with high dose of Seroquel and trazodone and I took the opportunity to stop the trazodone for now. His blood pressure under good control. Neurology evaluated the patient. A EEG was done and there was no evidence of any epileptic focus. Note that a CAT scan of the brain was also negative. On 01/17/2018 patient seen in follow-up on the selective care floor. He is awake alert, in no acute distress. He continues on IV diuretics, remains on IV Lasix at 40 mg IV every 8 hours. He is net fluid balance is -1955 over last 24 hours. Lung sounds are positive for bibasilar rhonchi, no wheezes. Yesterday chest x-ray showed mild pulmonary vessel congestion and bibasilar opacities consistent with confluent pulmonary edema. His FiO2 is currently at 8 L per nasal cannula, unable to wean , patient does desaturate even on 6 L per nasal cannula below 88%. No peripheral edema noted, days lab work shows a WBC of 6.5 , hemoglobin of 16.4, sodium of 142, potassium is 4.8, carbon dioxide is 31, BUN is 43, creatinine is 1.80. Patient's affect flat, and is answering questions, poor eye contact. No shakiness, restlessness or jerkiness noted on today's exam. Patient was seen in consultation by neurology, and his EEG has been normal. Patient's Ultram was discontinued. Patient's blood pressure is better controlled, with SBP ranging from 115 to 138, and DBP ranging from 70's- 90's. he remains stable, continue IV diuresis continue nebulized bronchodilators. On 01/18/2018, I'm seeing this patient for a follow-up. He is awake and alert. He remains on IV Lasix. He remains in a negative fluid balance. Chest x-ray shows improvement of pulmonary edema. Sleepiness is improved. More interactive and more chatty on today's evaluation. No cough or sputum production. Antibiotics have been discontinued. Hemodynamically stable. Renal function remains stable with a creatinine of 1.8. No other significant electrolyte abnormalities. He is also on bronchodilators. He is on Pulmicort and Perforomist neb last treatment [id number]. Blood pressure is well controlled. IV Lasix is being given 40 mg every 8 hours. Objective - Vital Signs Vital signs: Vital Signs Temp 97.7 F 01/18/18 11:50 Pulse 80 01/18/18 11:50 Resp 18 01/18/18 11:50 BP 97/67 01/18/18 11:50 Pulse Ox 94 L 01/18/18 11:50 Intake & Output 01/17/18 01/18/18 01/18/18 18:59 06:59 18:59 Intake Total 1022 118 Output Total 1300 Balance 1022 -1300 118 Weight 125.5 kg Intake: Oral 1022 118 Output: Urine 1300 Other: Voiding Method Urinal Urinal # Voids 3 1 - Exam On examination, the patient is more awake, oriented 3, to person and place. Currently on 2 L per nasal cannula, denies any acute respiratory distress. Denies any chest pain Head exam was generally normal. There was no scleral icterus or corneal arcus. Mucous membranes were moist. Neck was supple and without jugular venous distension, thyromegaly, or carotid bruits. Carotids were easily palpable bilaterally. There was no adenopathy. Lung sounds are positive for scattered rhonchi, no wheezes noted on today's exam Heart sounds are regular, positive S1-S2 and there is no significant murmurs.Cardiac exam revealed the PMI to be normally situated and sized. The rhythm was regular and no extrasystoles were noted during several minutes of auscultation. The first and second heart sounds were normal and physiologic splitting of the second heart sound was noted. There were no murmurs, rubs, clicks, or gallops. Abdominal exam revealed normal bowel sounds. The abdomen was soft, non-tender, and without masses, organomegaly, or appreciable enlargement of the abdominal aorta. Extremities shows some erythema and warmth in the right lower extremities. Ankle and the knee mainly anteriorly and there is an area of superficial ulceration stage I. Equal and symmetrical pulses bilaterally. No cyanosis or clubbing. Psychiatric history cannot be obtained. Skeletal examination the patient has a ankle sprain in the right lower extremity /ankle area. No obvious deformities Neurologic examination is within normal and the patient is moving all 4 extremities without any limitation and is awake and alert. - Labs CBC & Chem 7: 01/18/18 05:42 01/18/18 05:42 Labs: Abnormal Lab Results - Last 24 Hours (Table) 01/17/18 01/17/18 01/18/18 Range/Units 16:49 21:07 05:42 Hct 53.5 H (39.0-53.0) % MCHC 30.4 L (31.0-37.0) g/dL Plt Count 107 L (150-450) k/uL Carbon Dioxide (22-30) mmol/L BUN (9-20) mg/dL Creatinine (0.66-1.25) mg/dL Glucose (74-99) mg/dL POC Glucose (mg/dL) 109 H 106 H (75-99) mg/dL 01/18/18 01/18/18 01/18/18 Range/Units 05:42 06:16 11:50 Hct (39.0-53.0) % MCHC (31.0-37.0) g/dL Plt Count (150-450) k/uL Carbon Dioxide 32 H (22-30) mmol/L BUN 44 H (9-20) mg/dL Creatinine 1.80 H (0.66-1.25) mg/dL Glucose 115 H (74-99) mg/dL POC Glucose (mg/dL) 110 H 159 H (75-99) mg/dL Microbiology - Last 24 Hours (Table) 01/14/18 17:40 Blood Culture - Preliminary Blood No Growth after 72 hours Assessment and Plan Plan: 1 acute hypoxic and hypercapnic respiratory failure on top of a chronic hypoxic and hypercapnic respiratory failure. Patient presented with acute pulmonary edema and hypertensive emergency, treated and the patient is having a better blood pressure control and the fluid balance is also improved with resolution of the pulmonary edema. 2 altered mental status secondary to above. Neuro workup including a CAT scan of the brain was negative. The patient's mental status back to his baseline. 3 COPD 4 obstructive sleep apnea suspected 5 coronary artery disease with previous coronary intervention and stenting 6 CHF with an ejection fraction 40-45% 7 previous history of severe ischemic cardiomyopathy and the patient has an AICD in place 8 chronic renal failure with stage III chronic kidney disease and the patient has developed acute kidney injury on top of his chronic renal failure and this improved and the patient's creatinine is down to 1.8 9 diabetes mellitus, insulin-dependent with diabetic neuropathy and nephropathy 10 right ankle sprain 11 hypertension 12 hyperlipidemia 13 depression/bipolar disorder Plan Continue IV Lasix for another 24 hours. Pulmonary edema is improving. The chest x-ray shows improvement in the volume status. Currently on 94% pulse ox at 7 L/m nasal cannula. We'll wean down the FiO2 as tolerated. His blood pressure is under better control. We'll continue to follow and make further recommendations based on his progress. We'll ask the patient to sit up on a chair and increase the level of activity as tolerated.
--- NOTE | 2018-01-18 14:27 | P.PN ---
Subjective Progress Note Date: 01/18/18 This is a 57-year-old male with a known history of myocardial infarction, ischemic any myopathy with an AICD, insulin-dependent diabetes mellitus, hyperlipidemia, hypertension, obstructive apnea, COPD, chronic kidney disease and bipolar. Patient was brought into the emergency room due to altered mental status changes. He is a poor historian. Patient was found to be fluid overloaded and evidence of pulmonary edema. He was started on IV Lasix. He is currently in the ICU. Followed closely by pulmonary service and cardiology service. Cardiology was consulted due to elevated troponins. Patient remains on IV heparin. Per nursing staff patient's roommate had found patient on the ground without his oxygen. It also appears that patient may be taking his Seroquel and Ultram at the same time contributing to some of his confusion as well. Patient's did report that he had some shaking like possible seizure-like tremors before he passed out. Neurology has been consulted. There were concerns about possible pneumonia in the emergency room and he was started on IV antibiotics azithromycin and Rocephin. He also had evidence of hypoxic respiratory failure was 82% on room air. Computed tomography scan of the brain was negative. White count elevated at 15.5 and creatinine elevated at 2.63. This morning during patient's evaluation patient was very lethargic. He was arousable and would answer one question a time and fall asleep. He was able to report that he did not have any chest pain or shortness of breath. On 01/16/2018 patient was seen and examined in the intensive care unit he is more alert, there is no fever or chills he denies any headache he denies any pain, he is able to eat his meals, there is no chest pain or shortness of breath no cough no nausea or vomiting no abdominal pain and no urinary symptoms , patient stated that he was having some shaking at home before he lost consciousness he said that this was witnessed by one of his friends Kris, EEG was done and did not reveal clear evidence of seizure activity neurology consult requested. 01/17/2018 patient was transferred out of the ICU to the sixth floor yesterday. He remains on IV Lasix. Cardiology has increased his hydralazine to 50 mg 3 times a day and also added Corag. He is currently off antibiotics. He is been seen by neurology they felt that his altered mental status changes was due to hypoxia and doubt any seizure activity. EEG was negative. Service has also discontinued the trazodone due to patient being so sleepy. Patient is more awake today. Denies any chest pain or shortness of breath. Denies any nausea or vomiting. Reports having bowel movements denies any difficulty urinating. 01/18/2018 patient is feeling better. He is still requiring 7-8 L of oxygen. Patient followed closely by pulmonary service. They reported that chest x-ray showing improvement in the pulmonary edema. They're recommending IV Lasix for another 24 hours. Physical therapy has been consulted. Patient showing improvement. He denies any chest pain or shortness breath. Denies any nausea or vomiting. Reports having bowel movements. Denies any difficulty urinating. Objective - Vital Signs Vital signs: Vital Signs Temp 97.7 F 01/18/18 11:50 Pulse 80 01/18/18 14:03 Resp 18 01/18/18 11:50 BP 97/67 01/18/18 11:50 Pulse Ox 94 L 01/18/18 11:50 Intake & Output 01/17/18 01/18/18 01/18/18 18:59 06:59 18:59 Intake Total 1022 718 Output Total 1300 Balance 1022 -1300 718 Weight 125.5 kg Intake: Oral 1022 718 Output: Urine 1300 Other: Voiding Method Urinal Urinal # Voids 3 1 - Exam Head normocephalic Neck supple Lungs showing improvement in air movement Heart regular rate and rhythm S1-S2, no rub or gallop Abdomen is soft nontender nondistended positive bowel sounds no hepatosplenomegaly Extremities no edema Neuro alert and orientated to 3 - Labs CBC & Chem 7: 01/18/18 05:42 01/18/18 05:42 Labs: Abnormal Lab Results - Last 24 Hours (Table) 01/17/18 01/17/18 01/18/18 Range/Units 16:49 21:07 05:42 Hct 53.5 H (39.0-53.0) % MCHC 30.4 L (31.0-37.0) g/dL Plt Count 107 L (150-450) k/uL Carbon Dioxide (22-30) mmol/L BUN (9-20) mg/dL Creatinine (0.66-1.25) mg/dL Glucose (74-99) mg/dL POC Glucose (mg/dL) 109 H 106 H (75-99) mg/dL 01/18/18 01/18/18 01/18/18 Range/Units 05:42 06:16 11:50 Hct (39.0-53.0) % MCHC (31.0-37.0) g/dL Plt Count (150-450) k/uL Carbon Dioxide 32 H (22-30) mmol/L BUN 44 H (9-20) mg/dL Creatinine 1.80 H (0.66-1.25) mg/dL Glucose 115 H (74-99) mg/dL POC Glucose (mg/dL) 110 H 159 H (75-99) mg/dL Microbiology - Last 24 Hours (Table) 01/14/18 17:40 Blood Culture - Preliminary Blood No Growth after 72 hours Assessment and Plan Assessment: 1. Acute on hypoxic and hypercapnic respiratory failure secondary to pulmonary edema. Pulmonary service is following. Patient has required BiPAP. Currently on nasal cannula. But still requiring 7-8 L. We'll continue to try to wean down on oxygen. 2. Acute toxic metabolic encephalopathy secondary to his hypoxia and possibly medications. Computed tomography scan of the brain was negative. Patient's trazodone and Dunbar have been discontinued during this admission 3. Acute pulmonary edema: Continue with IV Lasix for another 24 hours per pulmonary service 4. Elevated troponins: No chest pain. EKG showing no acute changes. He by cardiology. No longer on IV heparin 5. History of COPD 6. Suspected obstructive sleep apnea 7. Coronary artery disease with previous stents 8. History of severe Ischemic cardiomyopathy with AICD 9. Possible seizure-like activity: And altered mental status. EEG negative for seizure activity. Patient seen and evaluated by neurology. They felt patient's symptoms were likely related to his hypoxia 10. Pneumonia ruled out. Initially started on antibiotics in the ER. Likely' s related to patient's pulmonary edema. Patient is now off of antibiotics 11. Essential hypertension with accelerated hypertension present on admission 12. Insulin-dependent diabetes mellitus: Blood sugars are stable with a sliding scale coverage. Patient has had poor oral intake 13. Acute rhabdomyolysis likely related to unknown period of time on the ground. CK levels 3000 on admission down to 1281. CK levels have improved 14. Acute on chronic renal failure stage stage III DVT prophylaxis Lovenox and GI prophylaxis protonix Consult physical therapy and social work to evaluate patient for possible rehab. Continue to wean patient off of his oxygen. Continue physical therapy. Patient will either be discharged home with home care or he may require rehab placement. Possible discharge tomorrow I performed an examination of the patient and discussed their management with the physician Shipping Coordinator. I have reviewed the Physician Shipping Coordinator's notes and agree with the documented findings and plan of care
[2018-01-18 16:53] LABS: Glucose,Whole Blood 250 mg/dL (75-99)
[2018-01-18 20:56] LABS: Glucose,Whole Blood 105 mg/dL (75-99)
[2018-01-18] MEDS: PRAVASTATIN SODIUM 40 MG TAB PO SCH (21:44)
[2018-01-18] MEDS: QUEtiapine 200 MG TAB PO SCH (21:44)
[2018-01-19 07:09] LABS: Glucose,Whole Blood 131 mg/dL (75-99)
--- NOTE | 2018-01-19 07:39 | XR ---
EXAMINATION TYPE: XR chest 2V DATE OF EXAM: 01/19/2018 HISTORY: follow up pulmonary edema. REFERENCE: Previous study dated 01/18/2018. FINDINGS: There is a bipolar pacemaker in place in the left. The lungs are overinflated. There continues to be bibasilar airspace disease. I cannot exclude small effusions. Heart size is upper limits of normal. IMPRESSION: NO SIGNIFICANT INTERVAL CHANGE IN THE APPEARANCE OF THE CHEST.
[2018-01-19 07:42] LABS: Basophils % (A) 0 %; Eosinophils # (A) 0.2 k/uL (0-0.7); Eosinophils % (A) 3 %; HCT 53.8 % (39.0-53.0); HGB 15.7 gm/dL (13.0-17.5); Hypochromasia Slight; Lymphocytes # (A) 1.6 k/uL (1.0-4.8); Lymphocytes % (A) 29 %; MCH 26.5 pg (25.0-35.0); MCHC 29.2 g/dL (31.0-37.0); MCV 90.9 fL (80.0-100.0); Mean Platelet Volume 10.7; Monocytes # (A) 0.6 k/uL (0-1.0); Monocytes % (A) 11 %; Neutrophils # (A) 3.1 k/uL (1.3-7.7); Neutrophils % (A) 55 %; Platelet Count 122 k/uL (150-450); RBC 5.91 m/uL (4.30-5.90); RDW 14.9 % (11.5-15.5); WBC 5.7 k/uL (3.8-10.6)
[2018-01-19 07:52] LABS: Albumin 3.1 g/dL (3.5-5.0); Potassium 3.8 mmol/L (3.5-5.1); Total Bilirubin 0.5 mg/dL (0.2-1.3); Total Protein 5.4 g/dL (6.3-8.2)
[2018-01-19] MEDS: ESCITALOPRAM 10 MG TAB PO SCH (08:16)
[2018-01-19] MEDS: cloNIDine HCL 0.2 MG TAB PO SCH ×2 (08:16→21:46)
[2018-01-19] MEDS: PANTOPRAZOLE 40 MG TABLET PO SCH (08:16)
[2018-01-19] MEDS: hydrALAZINE HCL 50 MG TAB PO SCH ×3 (08:16→21:46)
[2018-01-19] MEDS: amLODIPine 10 MG TAB PO SCH (08:16)
[2018-01-19] MEDS: ALLOPURINOL 100 MG TAB PO SCH (08:16)
[2018-01-19] MEDS: ENOXAPARIN 40 MG/0.4 ML SYRINGE SQ SCH ×2 (08:16→08:27)
[2018-01-19] MEDS: FUROSEMIDE 10 MG/ML 4 ML VIAL IV SCH ×2 (08:16→21:46)
[2018-01-19] MEDS: INSULIN ASPART 100 UNIT/ML 1 ML 10 ML VIAL SQ SCH ×4 (08:17→21:50)
[2018-01-19] MEDS: CARVEDILOL 12.5 MG TAB PO SCH ×2 (08:17→17:44)
[2018-01-19 08:18] LABS: Large Platelets Present; Poikilocytosis (M) Present
[2018-01-19] MEDS: PREGABALIN 75 MG CAP PO SCH ×2 (08:19→21:46)
[2018-01-19] MEDS: BUDESONIDE 0.5 MG/2 ML NEBU INHALATION SCH ×2 (08:53→18:53)
[2018-01-19] MEDS: FORMOTEROL FUMARATE 20 MCG/2 ML NEBU INHALATION SCH ×2 (08:57→18:54)
[2018-01-19] MEDS: IPRATROPIUM-ALBUTEROL 3 ML NEB INHALATION SCH ×3 (08:57→18:53)
[2018-01-19 12:12] LABS: Glucose,Whole Blood 117 mg/dL (75-99)
--- NOTE | 2018-01-19 12:53 | P.PN ---
Subjective Progress Note Date: 01/19/18 Principal diagnosis: Acute on chronic hypoxic and hypercapnic respiratory failure. 57-year-old male patient was brought into the emergency department because of altered mentation. The patient is a poor historian. The denied having any fever or chills. No nausea or vomiting. No chest pain. In the emergency department the patient was afebrile. Hemodynamically stable. Blood pressure was somewhat elevated with initial blood pressure 158/100. The patient had a chest x-ray that showed acute pulmonary edema. Nitroglycerin paste was applied and the patient was given IV Lasix and the patient was given hydralazine to control the blood pressure. The patient was also placed on a BiPAP and a pulmonary consultation was requested. The blood work showed a white cell count of 15.5. The blood gases showed a pH of 7.31 with a pCO2 of 55 and pO2 of 48 and this blood gases was done and FiO2 of 32%. The blood work also showed an acute on top of chronic renal failure with a creatinine of 2.6 knowing that the patient's baseline creatinine is around 1.5. The patient's potassium level was at 5.2. CPK was 3000. Troponin was 0.199 and a lactic acid level is at 2.1. The urinalysis showed +2 protein in the urine toxin was positive for opiates and tricyclics. Alcohol level was negative. The patient's EKG showed a normal sinus rhythm. The patient a right axis deviation and no other major abnormalities was noted. On 01/15/2018 patient seen in follow-up in intensive care unit. He reports his breathing improved, is currently off the BiPAP support, on 2 L per nasal cannula with O2 sat at 92%. Afebrile, hemodynamically stable, blood pressures are better controlled, with SBP in the 140's-160's and diastolic in the 90's/100 's. Patient is awake, alert, oriented 2, to place, person. Appears slightly withdrawn and a bit restless. Lung sounds reveal scattered rhonchi bilaterally , with fine rales at the bases. Today's chest x-ray shows CHF with residual interstitial edema/pulmonary vascular congestion, significantly improved from yesterday's exam. Today's blood work shows the BBC of 15.1, hemoglobin of 16.7 , electrolytes are within normal limits, BUN of 36, creatinine is 2.00. Patient had 2 positive sets of troponins, which topped at 0.199. CK-MBs were elevated at 18.1, with total creatinine kinase at 3002, patient was started on IV heparin last night, he is receiving Nitropaste 1 inch topical every 6 hours. He denies any chest pain. He does not recall his last heart catheterization, her he thinks he did have a heart catheterization in the past. We will consult cardiology in regards to patient's positive cardiac enzymes. On 01/16/2018 him a the patient is being seen in follow-up. The patient is resting comfortably in bed. Less short of breath compared to yesterday. Continue to diurese with IV Lasix and her net fluid balance is -2.8 L over the past 12 hours. His chest x-ray shows improvement in the pulmonary edema. He is less lethargic compared to yesterday. He denies having any shortness of breath. He is currently off the BiPAP. He denies having any cough or sputum production or chest tightness or wheezing. He can hold a conversation. No focal neurological deficit. No fever or chills. No sweats. Renal function continues to improve in the creatinine is down to 1.7. The patient is on and off utilizing the BiPAP. It is suspected the patient has an underlying sleep breathing disorder. He was becoming more sleepy and drowsy with high dose of Seroquel and trazodone and I took the opportunity to stop the trazodone for now. His blood pressure under good control. Neurology evaluated the patient. A EEG was done and there was no evidence of any epileptic focus. Note that a CAT scan of the brain was also negative. On 01/17/2018 patient seen in follow-up on the selective care floor. He is awake alert, in no acute distress. He continues on IV diuretics, remains on IV Lasix at 40 mg IV every 8 hours. He is net fluid balance is -1955 over last 24 hours. Lung sounds are positive for bibasilar rhonchi, no wheezes. Yesterday chest x-ray showed mild pulmonary vessel congestion and bibasilar opacities consistent with confluent pulmonary edema. His FiO2 is currently at 8 L per nasal cannula, unable to wean , patient does desaturate even on 6 L per nasal cannula below 88%. No peripheral edema noted, days lab work shows a WBC of 6.5 , hemoglobin of 16.4, sodium of 142, potassium is 4.8, carbon dioxide is 31, BUN is 43, creatinine is 1.80. Patient's affect flat, and is answering questions, poor eye contact. No shakiness, restlessness or jerkiness noted on today's exam. Patient was seen in consultation by neurology, and his EEG has been normal. Patient's Ultram was discontinued. Patient's blood pressure is better controlled, with SBP ranging from 115 to 138, and DBP ranging from 70's- 90's. he remains stable, continue IV diuresis continue nebulized bronchodilators. On 01/18/2018, I'm seeing this patient for a follow-up. He is awake and alert. He remains on IV Lasix. He remains in a negative fluid balance. Chest x-ray shows improvement of pulmonary edema. Sleepiness is improved. More interactive and more chatty on today's evaluation. No cough or sputum production. Antibiotics have been discontinued. Hemodynamically stable. Renal function remains stable with a creatinine of 1.8. No other significant electrolyte abnormalities. He is also on bronchodilators. He is on Pulmicort and Perforomist neb last treatment [id number]. Blood pressure is well controlled. IV Lasix is being given 40 mg every 8 hours. The patient is seen again today jan 19 2018 in follow-up on the regular medical floor. He is currently resting quite comfortably in bed. He is awake and alert in no acute distress. He is currently on oxygen at 6 L high flow nasal cannula and maintaining good O2 saturations in the 90s. He's been utilizing the BiPAP throughout the evenings. Continues to be diurese. He is in a negative balance. Creatinine 1.88. Chest x-ray reveals small bilateral pleural effusions. Objective - Vital Signs Vital signs: Vital Signs Temp 97.8 F 01/19/18 05:23 Pulse 76 01/19/18 12:37 Resp 16 01/19/18 05:23 BP 130/84 01/19/18 08:10 Pulse Ox 94 L 01/19/18 08:57 Intake & Output 01/18/18 01/19/18 01/19/18 18:59 06:59 18:59 Intake Total 1198 Output Total 875 150 Balance 323 -150 Intake: Oral 1198 Output: Urine 875 150 Other: Voiding Method Urinal Urinal # Voids 1 - Exam On examination, the patient is more awake, oriented 3, to person and place. Currently on 6 L per nasal cannula, denies any acute respiratory distress. Denies any chest pain Head exam was generally normal. There was no scleral icterus or corneal arcus. Mucous membranes were moist. Neck was supple and without jugular venous distension, thyromegaly, or carotid bruits. Carotids were easily palpable bilaterally. There was no adenopathy. Lung sounds are positive for scattered rhonchi, no wheezes noted on today's exam , faint crackles in the posterior bases Heart sounds are regular, positive S1-S2 and there is no significant murmurs.Cardiac exam revealed the PMI to be normally situated and sized. The rhythm was regular and no extrasystoles were noted during several minutes of auscultation. The first and second heart sounds were normal and physiologic splitting of the second heart sound was noted. There were no murmurs, rubs, clicks, or gallops. Abdominal exam revealed normal bowel sounds. The abdomen was soft, non-tender, and without masses, organomegaly, or appreciable enlargement of the abdominal aorta. Extremities shows some erythema and warmth in the right lower extremities. Ankle and the knee mainly anteriorly and there is an area of superficial ulceration stage I. Equal and symmetrical pulses bilaterally. No cyanosis or clubbing. Psychiatric history cannot be obtained. Skeletal examination the patient has a ankle sprain in the right lower extremity /ankle area. No obvious deformities Neurologic examination is within normal and the patient is moving all 4 extremities without any limitation and is awake and alert. - Labs CBC & Chem 7: 01/19/18 06:45 01/19/18 06:45 Labs: Abnormal Lab Results - Last 24 Hours (Table) 01/18/18 01/18/18 01/19/18 Range/Units 16:52 20:55 06:45 RBC 5.91 H (4.30-5.90) m/uL Hct 53.8 H (39.0-53.0) % MCHC 29.2 L (31.0-37.0) g/dL Plt Count 122 L (150-450) k/uL Carbon Dioxide (22-30) mmol/L BUN (9-20) mg/dL Creatinine (0.66-1.25) mg/dL Glucose (74-99) mg/dL POC Glucose (mg/dL) 250 H 105 H (75-99) mg/dL Total Protein (6.3-8.2) g/dL Albumin (3.5-5.0) g/dL 01/19/18 01/19/18 01/19/18 Range/Units 06:45 07:03 12:08 RBC (4.30-5.90) m/uL Hct (39.0-53.0) % MCHC (31.0-37.0) g/dL Plt Count (150-450) k/uL Carbon Dioxide 36 H (22-30) mmol/L BUN 47 H (9-20) mg/dL Creatinine 1.88 H (0.66-1.25) mg/dL Glucose 113 H (74-99) mg/dL POC Glucose (mg/dL) 131 H 117 H (75-99) mg/dL Total Protein 5.4 L (6.3-8.2) g/dL Albumin 3.1 L (3.5-5.0) g/dL Microbiology - Last 24 Hours (Table) 01/14/18 17:40 Blood Culture - Preliminary Blood No Growth after 96 hours Assessment and Plan Assessment: 1 acute hypoxic and hypercapnic respiratory failure on top of a chronic hypoxic and hypercapnic respiratory failure. Patient presented with acute pulmonary edema and hypertensive emergency, treated and the patient is having a better blood pressure control and the fluid balance is also improved with resolution of the pulmonary edema. 2 altered mental status secondary to above. Neuro workup including a CAT scan of the brain was negative. The patient's mental status back to his baseline. 3 COPD 4 obstructive sleep apnea suspected 5 coronary artery disease with previous coronary intervention and stenting 6 CHF with an ejection fraction 40-45% 7 previous history of severe ischemic cardiomyopathy and the patient has an AICD in place 8 chronic renal failure with stage III chronic kidney disease and the patient has developed acute kidney injury on top of his chronic renal failure and this improved and the patient's creatinine is down to 1.8 9 diabetes mellitus, insulin-dependent with diabetic neuropathy and nephropathy 10 right ankle sprain 11 hypertension 12 hyperlipidemia 13 depression/bipolar disorder Plan The patient was seen and evaluated by Dr. Haile. He is improved today as compared to yesterday. Requiring 6 L high flow nasal cannula. We'll continue to titrate down the FiO2 as tolerated. Continue with his current medications. Increase his activity as tolerated. We'll continue to follow. I, the cosigning physician, performed a history & physical examination of the patient. Lungs sounds with faint crackles in the posterior bases.. Maintaining good O2 saturations in the 90s on its liters high flow nasal cannula. I discussed the assessment and plan of care with my nurse practitioner, Sil Land. I attest to the above note as dictated by her.
--- NOTE | 2018-01-19 15:16 | P.PN ---
Subjective Progress Note Date: 01/19/18 Patient is doing well today. He denies significant shortness of breath. He is still requiring 6 L of oxygen via nasal cannula. Objective - Vital Signs Vital signs: Vital Signs Temp 97.8 F 01/19/18 05:23 Pulse 76 01/19/18 12:37 Resp 16 01/19/18 05:23 BP 130/84 01/19/18 08:10 Pulse Ox 90 L 01/19/18 13:13 Intake & Output 01/18/18 01/19/18 01/19/18 18:59 06:59 18:59 Intake Total 1198 Output Total 875 150 Balance 323 -150 Intake: Oral 1198 Output: Urine 875 150 Other: Voiding Method Urinal Urinal # Voids 1 - Exam General: The patient is awake and alert, in no distress Eye: there is normal conjunctiva bilaterally. Neck: The neck is supple, there is no JVD. Cardiovascular: Normal S1-S2, no S3-S4, no murmurs. Respiratory: Lungs clear to auscultation bilaterally Gastrointestinal: Abdomen is soft, nontender Musculoskeletal: There is no pedal edema. Neurological:. Speech is normal. Skin: Skin is warm and dry - Labs CBC & Chem 7: 01/19/18 06:45 01/19/18 06:45 Labs: Abnormal Lab Results - Last 24 Hours (Table) 01/18/18 01/18/18 01/19/18 Range/Units 16:52 20:55 06:45 RBC 5.91 H (4.30-5.90) m/uL Hct 53.8 H (39.0-53.0) % MCHC 29.2 L (31.0-37.0) g/dL Plt Count 122 L (150-450) k/uL Carbon Dioxide (22-30) mmol/L BUN (9-20) mg/dL Creatinine (0.66-1.25) mg/dL Glucose (74-99) mg/dL POC Glucose (mg/dL) 250 H 105 H (75-99) mg/dL Total Protein (6.3-8.2) g/dL Albumin (3.5-5.0) g/dL 01/19/18 01/19/18 01/19/18 Range/Units 06:45 07:03 12:08 RBC (4.30-5.90) m/uL Hct (39.0-53.0) % MCHC (31.0-37.0) g/dL Plt Count (150-450) k/uL Carbon Dioxide 36 H (22-30) mmol/L BUN 47 H (9-20) mg/dL Creatinine 1.88 H (0.66-1.25) mg/dL Glucose 113 H (74-99) mg/dL POC Glucose (mg/dL) 131 H 117 H (75-99) mg/dL Total Protein 5.4 L (6.3-8.2) g/dL Albumin 3.1 L (3.5-5.0) g/dL Microbiology - Last 24 Hours (Table) 01/14/18 17:40 Blood Culture - Preliminary Blood No Growth after 96 hours Assessment and Plan Assessment: 1. Acute on hypoxic and hypercapnic respiratory failure secondary to pulmonary edema. Pulmonary service is following. Patient has required BiPAP. Currently on nasal cannula. But still requiring 6 L. We'll continue to try to wean down on oxygen. 2. Acute toxic metabolic encephalopathy secondary to his hypoxia and possibly medications. Computed tomography scan of the brain was negative. Patient's trazodone and [place] have been discontinued during this admission 3. Acute pulmonary edema: Continue with IV Lasix for another 24 hours per pulmonary service 4. Elevated troponins: No chest pain. EKG showing no acute changes. He by cardiology. No longer on IV heparin 5. History of COPD 6. Suspected obstructive sleep apnea 7. Coronary artery disease with previous stents 8. History of severe Ischemic cardiomyopathy with AICD 9. Possible seizure-like activity: And altered mental status. EEG negative for seizure activity. Patient seen and evaluated by neurology. They felt patient's symptoms were likely related to his hypoxia 10. Pneumonia ruled out. Initially started on antibiotics in the ER. Likely' s related to patient's pulmonary edema. Patient is now off of antibiotics 11. Essential hypertension with accelerated hypertension present on admission, blood pressure better controlled 12. Insulin-dependent diabetes mellitus 13. Acute rhabdomyolysis likely related to unknown period of time on the ground. CK levels have improved 14. Acute on chronic renal failure stage stage III DVT prophylaxis Lovenox and GI prophylaxis protonix Consult physical therapy and social work to evaluate patient for possible rehab. Continue to wean patient off of his oxygen. Continue physical therapy.
[2018-01-19 17:22] LABS: Glucose,Whole Blood 196 mg/dL (75-99)
[2018-01-19 20:37] LABS: Glucose,Whole Blood 98 mg/dL (75-99)
[2018-01-19] MEDS: QUEtiapine 200 MG TAB PO SCH (21:46)
[2018-01-19] MEDS: PRAVASTATIN SODIUM 40 MG TAB PO SCH (21:46)
[2018-01-19 22:42] VITALS: RESP 17
[2018-01-20 06:21] VITALS: TEMP 98
[2018-01-20 07:17] LABS: Basophils % (A) 0 %; Eosinophils # (A) 0.2 k/uL (0-0.7); Eosinophils % (A) 3 %; HCT 51.9 % (39.0-53.0); HGB 16.6 gm/dL (13.0-17.5); Hypochromasia Slight; Lymphocytes % (A) 30 %; MCH 28.7 pg (25.0-35.0); MCV 89.9 fL (80.0-100.0); Mean Platelet Volume 9.6; Monocytes # (A) 0.5 k/uL (0-1.0); Monocytes % (A) 7 %; Neutrophils # (A) 3.7 k/uL (1.3-7.7); Neutrophils % (A) 55 %; Platelet Count 124 k/uL (150-450); RBC 5.77 m/uL (4.30-5.90); RDW 14.7 % (11.5-15.5); WBC 6.7 k/uL (3.8-10.6)
[2018-01-20 07:21] LABS: Glucose,Whole Blood 119 mg/dL (75-99)
[2018-01-20 07:27] LABS: Albumin 3.4 g/dL (3.5-5.0); Calcium 8.7 mg/dL (8.4-10.2); Total Bilirubin 0.6 mg/dL (0.2-1.3); Total Protein 5.9 g/dL (6.3-8.2)
[2018-01-20] MEDS: INSULIN ASPART 100 UNIT/ML 1 ML 10 ML VIAL SQ SCH ×2 (07:28→12:31)
[2018-01-20 07:40] LABS: Potassium 4.6 mmol/L (3.5-5.1)
[2018-01-20 07:46] VITALS: BP 125/84
[2018-01-20] MEDS: FUROSEMIDE 10 MG/ML 4 ML VIAL IV SCH (07:46)
[2018-01-20] MEDS: CARVEDILOL 12.5 MG TAB PO SCH (07:46)
[2018-01-20] MEDS: hydrALAZINE HCL 50 MG TAB PO SCH ×2 (07:47→16:02)
[2018-01-20] MEDS: ALLOPURINOL 100 MG TAB PO SCH (07:47)
[2018-01-20] MEDS: cloNIDine HCL 0.2 MG TAB PO SCH (07:47)
[2018-01-20] MEDS: amLODIPine 10 MG TAB PO SCH (07:47)
[2018-01-20] MEDS: ESCITALOPRAM 10 MG TAB PO SCH (07:47)
[2018-01-20] MEDS: PANTOPRAZOLE 40 MG TABLET PO SCH (07:47)
[2018-01-20] MEDS: ENOXAPARIN 40 MG/0.4 ML SYRINGE SQ SCH (07:48)
[2018-01-20] MEDS: PREGABALIN 75 MG CAP PO SCH (07:50)
[2018-01-20] MEDS: BUDESONIDE 0.5 MG/2 ML NEBU INHALATION SCH (08:10)
[2018-01-20] MEDS: FORMOTEROL FUMARATE 20 MCG/2 ML NEBU INHALATION SCH (08:10)
[2018-01-20] MEDS: IPRATROPIUM-ALBUTEROL 3 ML NEB INHALATION SCH ×2 (08:10→13:38)
[2018-01-20 08:32] VITALS: PULSE 80
[2018-01-20] MEDS ORDERED: FUROSEMIDE 40 MG TAB PO SCH (10:00)
[2018-01-20 11:19] LABS: Glucose,Whole Blood 121 mg/dL (75-99)
--- NOTE | 2018-01-20 14:24 | P.PN ---
Subjective Progress Note Date: 01/20/18 57-year-old male patient was brought into the emergency department because of altered mentation. The patient is a poor historian. The denied having any fever or chills. No nausea or vomiting. No chest pain. In the emergency department the patient was afebrile. Hemodynamically stable. Blood pressure was somewhat elevated with initial blood pressure 158/100. The patient had a chest x-ray that showed acute pulmonary edema. Nitroglycerin paste was applied and the patient was given IV Lasix and the patient was given hydralazine to control the blood pressure. The patient was also placed on a BiPAP and a pulmonary consultation was requested. The blood work showed a white cell count of 15.5. The blood gases showed a pH of 7.31 with a pCO2 of 55 and pO2 of 48 and this blood gases was done and FiO2 of 32%. The blood work also showed an acute on top of chronic renal failure with a creatinine of 2.6 knowing that the patient's baseline creatinine is around 1.5. The patient's potassium level was at 5.2. CPK was 3000. Troponin was 0.199 and a lactic acid level is at 2.1. The urinalysis showed +2 protein in the urine toxin was positive for opiates and tricyclics. Alcohol level was negative. The patient's EKG showed a normal sinus rhythm. The patient a right axis deviation and no other major abnormalities was noted. On 01/15/2018 patient seen in follow-up in intensive care unit. He reports his breathing improved, is currently off the BiPAP support, on 2 L per nasal cannula with O2 sat at 92%. Afebrile, hemodynamically stable, blood pressures are better controlled, with SBP in the 140's-160's and diastolic in the 90's/100 's. Patient is awake, alert, oriented 2, to place, person. Appears slightly withdrawn and a bit restless. Lung sounds reveal scattered rhonchi bilaterally , with fine rales at the bases. Today's chest x-ray shows CHF with residual interstitial edema/pulmonary vascular congestion, significantly improved from yesterday's exam. Today's blood work shows the BBC of 15.1, hemoglobin of 16.7 , electrolytes are within normal limits, BUN of 36, creatinine is 2.00. Patient had 2 positive sets of troponins, which topped at 0.199. CK-MBs were elevated at 18.1, with total creatinine kinase at 3002, patient was started on IV heparin last night, he is receiving Nitropaste 1 inch topical every 6 hours. He denies any chest pain. He does not recall his last heart catheterization, her he thinks he did have a heart catheterization in the past. We will consult cardiology in regards to patient's positive cardiac enzymes. On 01/16/2018 him a the patient is being seen in follow-up. The patient is resting comfortably in bed. Less short of breath compared to yesterday. Continue to diurese with IV Lasix and her net fluid balance is -2.8 L over the past 12 hours. His chest x-ray shows improvement in the pulmonary edema. He is less lethargic compared to yesterday. He denies having any shortness of breath. He is currently off the BiPAP. He denies having any cough or sputum production or chest tightness or wheezing. He can hold a conversation. No focal neurological deficit. No fever or chills. No sweats. Renal function continues to improve in the creatinine is down to 1.7. The patient is on and off utilizing the BiPAP. It is suspected the patient has an underlying sleep breathing disorder. He was becoming more sleepy and drowsy with high dose of Seroquel and trazodone and I took the opportunity to stop the trazodone for now. His blood pressure under good control. Neurology evaluated the patient. A EEG was done and there was no evidence of any epileptic focus. Note that a CAT scan of the brain was also negative. On 01/17/2018 patient seen in follow-up on the selective care floor. He is awake alert, in no acute distress. He continues on IV diuretics, remains on IV Lasix at 40 mg IV every 8 hours. He is net fluid balance is -1955 over last 24 hours. Lung sounds are positive for bibasilar rhonchi, no wheezes. Yesterday chest x-ray showed mild pulmonary vessel congestion and bibasilar opacities consistent with confluent pulmonary edema. His FiO2 is currently at 8 L per nasal cannula, unable to wean , patient does desaturate even on 6 L per nasal cannula below 88%. No peripheral edema noted, days lab work shows a WBC of 6.5 , hemoglobin of 16.4, sodium of 142, potassium is 4.8, carbon dioxide is 31, BUN is 43, creatinine is 1.80. Patient's affect flat, and is answering questions, poor eye contact. No shakiness, restlessness or jerkiness noted on today's exam. Patient was seen in consultation by neurology, and his EEG has been normal. Patient's Ultram was discontinued. Patient's blood pressure is better controlled, with SBP ranging from 115 to 138, and DBP ranging from 70's- 90's. he remains stable, continue IV diuresis continue nebulized bronchodilators. On 01/18/2018, I'm seeing this patient for a follow-up. He is awake and alert. He remains on IV Lasix. He remains in a negative fluid balance. Chest x-ray shows improvement of pulmonary edema. Sleepiness is improved. More interactive and more chatty on today's evaluation. No cough or sputum production. Antibiotics have been discontinued. Hemodynamically stable. Renal function remains stable with a creatinine of 1.8. No other significant electrolyte abnormalities. He is also on bronchodilators. He is on Pulmicort and Perforomist neb last treatment [id number]. Blood pressure is well controlled. IV Lasix is being given 40 mg every 8 hours. The patient is seen again today jan 19 2018 in follow-up on the regular medical floor. He is currently resting quite comfortably in bed. He is awake and alert in no acute distress. He is currently on oxygen at 6 L high flow nasal cannula and maintaining good O2 saturations in the 90s. He's been utilizing the BiPAP throughout the evenings. Continues to be diurese. He is in a negative balance. Creatinine 1.88. Chest x-ray reveals small bilateral pleural effusions. On 01/20/2018, the patient is looking well. The patient started becoming slightly prerenal and it creatinine is up to 1.9. Based on that, stopped IV Lasix and put the patient on oral Lasix 40 mg by mouth daily. He is still on oxygen at 2 L/m nasal cannula. Hemodynamically stable. No cough sputum production chest tightness or wheezing. Objective - Vital Signs Vital signs: Vital Signs Temp 98 F 01/20/18 06:20 Pulse 80 01/20/18 13:48 Resp 17 01/20/18 06:20 BP 125/84 01/20/18 06:20 Pulse Ox 95 01/20/18 08:10 Intake & Output 01/19/18 01/20/18 01/20/18 18:59 06:59 18:59 Intake Total 580 Balance 580 Intake: Oral 580 Other: Voiding Method Urinal Urinal Urinal # Voids 2 3 # Bowel Movements 1 1 - Exam On examination, the patient is more awake, oriented 3, to person and place. Currently on 2 L per nasal cannula, denies any acute respiratory distress. Denies any chest pain Head exam was generally normal. There was no scleral icterus or corneal arcus. Mucous membranes were moist. Neck was supple and without jugular venous distension, thyromegaly, or carotid bruits. Carotids were easily palpable bilaterally. There was no adenopathy. Lung sounds are positive for scattered rhonchi, no wheezes noted on today's exam Heart sounds are regular, positive S1-S2 and there is no significant murmurs.Cardiac exam revealed the PMI to be normally situated and sized. The rhythm was regular and no extrasystoles were noted during several minutes of auscultation. The first and second heart sounds were normal and physiologic splitting of the second heart sound was noted. There were no murmurs, rubs, clicks, or gallops. Abdominal exam revealed normal bowel sounds. The abdomen was soft, non-tender, and without masses, organomegaly, or appreciable enlargement of the abdominal aorta. Extremities shows some erythema and warmth in the right lower extremities. Ankle and the knee mainly anteriorly and there is an area of superficial ulceration stage I. Equal and symmetrical pulses bilaterally. No cyanosis or clubbing. Psychiatric history cannot be obtained. Skeletal examination the patient has a ankle sprain in the right lower extremity /ankle area. No obvious deformities Neurologic examination is within normal and the patient is moving all 4 extremities without any limitation and is awake and alert. - Labs CBC & Chem 7: 01/20/18 06:48 01/20/18 06:48 Labs: Abnormal Lab Results - Last 24 Hours (Table) 01/19/18 01/20/18 01/20/18 Range/Units 17:21 06:48 06:48 Plt Count 124 L (150-450) k/uL Chloride 97 L (98-107) mmol/L Carbon Dioxide 34 H (22-30) mmol/L BUN 51 H (9-20) mg/dL Creatinine 1.91 H (0.66-1.25) mg/dL Glucose 125 H (74-99) mg/dL POC Glucose (mg/dL) 196 H (75-99) mg/dL Total Protein 5.9 L (6.3-8.2) g/dL Albumin 3.4 L (3.5-5.0) g/dL 01/20/18 01/20/18 Range/Units 07:14 11:10 Plt Count (150-450) k/uL Chloride (98-107) mmol/L Carbon Dioxide (22-30) mmol/L BUN (9-20) mg/dL Creatinine (0.66-1.25) mg/dL Glucose (74-99) mg/dL POC Glucose (mg/dL) 119 H 121 H (75-99) mg/dL Total Protein (6.3-8.2) g/dL Albumin (3.5-5.0) g/dL Microbiology - Last 24 Hours (Table) 01/14/18 17:40 Blood Culture - Preliminary Blood No Growth after 120 hours Assessment and Plan Plan: 1 acute hypoxic and hypercapnic respiratory failure on top of a chronic hypoxic and hypercapnic respiratory failure. Patient presented with acute pulmonary edema and hypertensive emergency, treated and the patient is having a better blood pressure control and the fluid balance is also improved with resolution of the pulmonary edema. 2 altered mental status secondary to above. Neuro workup including a CAT scan of the brain was negative. The patient's mental status back to his baseline. 3 COPD 4 obstructive sleep apnea suspected 5 coronary artery disease with previous coronary intervention and stenting 6 CHF with an ejection fraction 40-45% 7 previous history of severe ischemic cardiomyopathy and the patient has an AICD in place 8 chronic renal failure with stage III chronic kidney disease and the patient has developed acute kidney injury on top of his chronic renal failure and this improved and the patient's creatinine is down to 1.8 9 diabetes mellitus, insulin-dependent with diabetic neuropathy and nephropathy 10 right ankle sprain 11 hypertension 12 hyperlipidemia 13 depression/bipolar disorder Plan With the patient oral Lasix 40 mg by mouth daily. Hemodynamically stable. Discharge planning is in progress. Possible discharge today. Outpatient follow -up regarding DOUG treatment.
--- NOTE | 2018-01-20 15:09 | P.DS ---
Providers Date of admission: 01/14/18 16:39 Expected date of discharge: 01/20/18 Attending physician: Tess Regalado Consults: 01/14/18 16:39 Consult Physician Routine Consulting Provider: [place] Consult Reason/Comments: Pneumonia, hypoxia Do you want consulting provider notified?: Yes 01/15/18 10:05 Consult Physician Routine Consulting Provider: Laurent Borges Consult Reason/Comments: elevated troponins Do you want consulting provider notified?: Yes 01/15/18 12:55 Consult Physician Urgent Consulting Provider: Jennifer Sosa Consult Reason/Comments: acute mental status changes Do you want consulting provider notified?: Yes Primary care physician: Tess Regalado [facility] Course: 1. Acute on hypoxic and hypercapnic respiratory failure secondary to pulmonary edema. Patient has required BiPAP. He patient was seen by pulmonology. Improved with IV diuresis. Back to 3-4 L of oxygen via nasal cannula 2. Acute toxic metabolic encephalopathy secondary to his hypoxia and possibly medications. Computed tomography scan of the brain was negative. Patient's trazodone and [place] have been discontinued during this admission 3. Acute pulmonary edema 4. Elevated troponins: No chest pain. EKG showing no acute changes. He by cardiology. No longer on IV heparin 5. History of COPD 6. Suspected obstructive sleep apnea 7. Coronary artery disease with previous stents 8. History of severe Ischemic cardiomyopathy with AICD 9. Possible seizure-like activity: And altered mental status. EEG negative for seizure activity. Patient seen and evaluated by neurology. They felt patient's symptoms were likely related to his hypoxia 10. Pneumonia ruled out. Initially started on antibiotics in the ER. Likely' s related to patient's pulmonary edema. Patient is now off of antibiotics 11. Essential hypertension with accelerated hypertension present on admission, blood pressure better controlled 12. Insulin-dependent diabetes mellitus 13. Acute rhabdomyolysis likely related to unknown period of time on the ground. CK levels have improved 14. Acute on chronic renal failure stage stage III polymers that'll she will let us [id number] daughter when they're available. Plan - Discharge Summary Discharge Rx Participant: Yes New Discharge Prescriptions: New Carvedilol [Coreg*] 12.5 mg PO BID-W/MEALS #30 tab hydrALAZINE HCL [Apresoline] 50 mg PO TID #60 tab Continue traZODone HCL [Desyrel] 200 mg PO HS amLODIPine [Norvasc] 10 mg PO DAILY Allopurinol [Zyloprim] 100 mg PO DAILY QUEtiapine [SEROquel] 200 mg PO HS Escitalopram [Lexapro] 10 mg PO DAILY Insulin Aspart [NovoLOG Flexpen] 4 units SQ AC-TID #120 ml Pregabalin [Lyrica] 75 mg PO BID Fluticasone/Vilanterol [Breo Ellipta 100-25 Mcg Inhaler] 1 puff INHALATION RT -DAILY Albuterol Inhaler [Ventolin Hfa Inhaler] 2 puff INHALATION RT-QID PRN PRN Reason: Shortness Of Breath Furosemide [Lasix] 40 mg PO DAILY #30 tab cloNIDine HCL [Catapres] 0.2 mg PO BID #60 tab HYDROcodone/APAP 10-325MG [[place] 10-325] 1 tab PO TID PRN PRN Reason: Pain Lisinopril [Prinivil] 20 mg PO DAILY Pravastatin Sodium [Pravachol] 40 mg PO HS Discontinued Gabapentin [Neurontin] 300 mg PO DAILY hydrALAZINE HCL [Apresoline] 25 mg PO TID Carvedilol [Coreg] 3.125 mg PO BID-W/MEALS #60 tab Losartan [Cozaar] 25 mg PO DAILY #30 tab Discharge Medication List amLODIPine [Norvasc] 10 mg PO DAILY 01/05/16 [History] traZODone HCL [Desyrel] 200 mg PO HS 01/05/16 [History] Allopurinol [Zyloprim] 100 mg PO DAILY 05/21/17 [History] Escitalopram [Lexapro] 10 mg PO DAILY 05/21/17 [History] QUEtiapine [SEROquel] 200 mg PO HS 05/21/17 [History] Insulin Aspart [NovoLOG Flexpen] 4 units SQ AC-TID #120 ml 06/12/17 [Rx] Albuterol Inhaler [Ventolin Hfa Inhaler] 2 puff INHALATION RT-QID PRN 11/25/17 [ History] Fluticasone/Vilanterol [Breo Ellipta 100-25 Mcg Inhaler] 1 puff INHALATION RT- DAILY 11/25/17 [History] Pregabalin [Lyrica] 75 mg PO BID 11/25/17 [History] Furosemide [Lasix] 40 mg PO DAILY #30 tab 12/11/17 [Rx] cloNIDine HCL [Catapres] 0.2 mg PO BID #60 tab 12/11/17 [Rx] HYDROcodone/APAP 10-325MG [[place] 10-325] 1 tab PO TID PRN 01/14/18 [History] Lisinopril [Prinivil] 20 mg PO DAILY 01/14/18 [History] Pravastatin Sodium [Pravachol] 40 mg PO HS 01/14/18 [History] Carvedilol [Coreg*] 12.5 mg PO BID-W/MEALS #30 tab 01/20/18 [Rx] hydrALAZINE HCL [Apresoline] 50 mg PO TID #60 tab 01/20/18 [Rx] Follow up Appointment(s)/Referral(s): Tess Regalado MD [Primary Care Provider] - 1-2 days Activity/Diet/Wound Care/Special Instructions: Home Oxygen __L/NC 02/04 - provided by [facility] - [phone] (portable tank to be delivered to patient in room prior to discharge) Discharge Disposition: HOME SELF-CARE
--- NOTE | 2018-01-21 13:24 | PN ---
PROGRESS NOTE This patient was admitted with change in the mental status and uncontrolled hypertension. Patient is doing well. Patient is alert, awake and he is ambulating in the hallway. This patient's blood pressure is fairly well-controlled and it is now 140/80 mmHg. First and second heart sounds are normal. Lungs are clinically clear to auscultation and percussion. We will continue the patient on the current medications. MMODL / IJN: [id number] /
== END 2018-01-20 16:20 | disposition home or self-care (01) | DRG 189 ==
LOC: EC 13:44 → 6SEL 16:39 → 6ICU 19:47 → 6SEL 01-16 23:41 → 5MS5E 01-18 22:35
PROVIDERS: ADMIT Internal Medicine; ATTEND Internal Medicine
PROC: 5A09557 Assistance with Respiratory Ventilation, Greater than 96 Consecutive Hours, Continuous Positive Airway Pressure (ICD-10-PCS; principal; 2018-01-14)
DX: J96.21 Acute and chronic respiratory failure with hypoxia (principal); G92 Toxic encephalopathy; I50.23 Acute on chronic systolic (congestive) heart failure; M62.82 Rhabdomyolysis; N17.9 Acute kidney failure, unspecified; G93.1 Anoxic brain damage, not elsewhere classified; I13.0 Hypertensive heart and chronic kidney disease with heart failure and stage 1 through stage 4 chronic kidney disease, or unspecified chronic kidney disease; I16.1 Hypertensive emergency; J96.22 Acute and chronic respiratory failure with hypercapnia; N18.3 Chronic kidney disease, stage 3 (moderate); S93.401A Sprain of unspecified ligament of right ankle, initial encounter; D69.6 Thrombocytopenia, unspecified; E11.22 Type 2 diabetes mellitus with diabetic chronic kidney disease; E11.40 Type 2 diabetes mellitus with diabetic neuropathy, unspecified; J44.9 Chronic obstructive pulmonary disease, unspecified; E78.5 Hyperlipidemia, unspecified; G47.33 Obstructive sleep apnea (adult) (pediatric); I25.10 Atherosclerotic heart disease of native coronary artery without angina pectoris; I25.2 Old myocardial infarction; I25.5 Ischemic cardiomyopathy; R77.8 Other specified abnormalities of plasma proteins; F32.9 Major depressive disorder, single episode, unspecified; T50.905A Adverse effect of unspecified drugs, medicaments and biological substances, initial encounter; Z79.4 Long term (current) use of insulin; Z79.899 Other long term (current) drug therapy; Z88.0 Allergy status to penicillin; Z95.810 Presence of automatic (implantable) cardiac defibrillator; Z95.5 Presence of coronary angioplasty implant and graft; Z87.891 Personal history of nicotine dependence; Z82.49 Family history of ischemic heart disease and other diseases of the circulatory system; Z80.9 Family history of malignant neoplasm, unspecified; Y92.009 Unspecified place in unspecified non-institutional (private) residence as the place of occurrence of the external cause
CPT/HCPCS: 36415; 36600; 70450; 71045; 71046; 80048; 80053; 80306; 80320; 81001; 82550; 82553; 82805; 83036; 83605; 84484; 85025; 85610; 85730; 87040; 87070; 87205; 93005; 94640; 94660; 94760; 95819; 96361; 96365; 96366; 96367; 96368; 96375; 96376; 99291

== ENCOUNTER 2018-04-09 16:18 | Inpatient (IN) | payer MEDICARE, OTHER ==
[2018-04-09] MEDS ORDERED: ALBUTEROL NEBULIZED 2.5 MG/3 ML INHALATION STA (16:29)
[2018-04-09] MEDS ORDERED: IPRATROPIUM 0.5 MG/2.5 ML NEBU INHALATION STA (16:29)
--- NOTE | 2018-04-09 16:55 | XR ---
EXAMINATION TYPE: XR chest 1V portable DATE OF EXAM: 04/09/2018 COMPARISON: 01/19/2018 HISTORY: Shortness of breath TECHNIQUE: Single frontal view of the chest is obtained. FINDINGS: There is diffuse moderate pulmonary vascular congestion and interstitial edema. This is ex amination with cardiomegaly and dual-lead left sided cardiac device. No pneumothorax or appreciable p leural effusion. IMPRESSION: Findings suggesting decompensating congestive heart failure with moderate interstitial e alecia and pulmonary vascular congestion.
[2018-04-09 17:01] LABS: Anisocytosis Slight; HGB 17.5 gm/dL (13.0-17.5); Hypochromasia Marked; MCH 28.1 pg (25.0-35.0); MCHC 30.5 g/dL (31.0-37.0); MCV 92.1 fL (80.0-100.0); Mean Platelet Volume 9.8; RBC 6.24 m/uL (4.30-5.90); RDW 16.5 % (11.5-15.5); WBC 8.5 k/uL (3.8-10.6)
[2018-04-09 17:03] LABS: HCT 57.4 % (39.0-53.0)
[2018-04-09 17:06] LABS: Albumin 3.6 g/dL (3.5-5.0); Calcium 9.4 mg/dL (8.4-10.2); Magnesium 2.2 mg/dL (1.6-2.3); Potassium 4.8 mmol/L (3.5-5.1); Total Bilirubin 0.9 mg/dL (0.2-1.3); Total Protein 6.6 g/dL (6.3-8.2)
--- NOTE | 2018-04-09 17:08 | ED ---
General Adult HPI - General Chief complaint: Shortness of Breath Stated complaint: Difficulty Breathing Time Seen by Provider: 04/09/18 16:26 Source: patient, EMS, RN notes reviewed, old records reviewed Mode of arrival: EMS Limitations: no limitations - History of Present Illness Initial comments: This is a 57-year-old male the ER today. This patient presents today for evaluation regarding significant shortness of breath shortness stress. Patient' s brought in by EMS with significant hypoxia pulse ox in the 70s. Patient denies pain but states he cannot catch his breath. Denies any focality sick contacts. Patient does admit to continuing to smoke. Does have increased cough and congestion. Patient does have significant history of heart disease as well as lung disease - Related Data Home Medications Medication Instructions Recorded Confirmed amLODIPine [Norvasc] 10 mg PO DAILY 01/05/16 04/09/18 traZODone HCL [Desyrel] 200 mg PO HS 01/05/16 04/09/18 Allopurinol [Zyloprim] 100 mg PO DAILY 05/21/17 04/09/18 QUEtiapine [SEROquel] 200 mg PO HS 05/21/17 04/09/18 Albuterol Inhaler [Ventolin Hfa 2 puff INHALATION RT-QID PRN 11/25/17 04/09/18 Inhaler] Fluticasone/Vilanterol [Breo 1 puff INHALATION RT-DAILY 11/25/17 04/09/18 Ellipta 100-25 Mcg Inhaler] Pregabalin [Lyrica] 75 mg PO BID 11/25/17 04/09/18 Lisinopril [Prinivil] 20 mg PO DAILY 01/14/18 04/09/18 Pravastatin Sodium [Pravachol] 40 mg PO HS 01/14/18 04/09/18 Buprenorphine HCl/Naloxone HCl 1 tab SUBLINGUAL BID PRN 04/09/18 04/09/18 [Zubsolv 5.7-1.4 mg Tablet Sl] Escitalopram [Lexapro] 20 mg PO DAILY 04/09/18 04/09/18 Gabapentin [Neurontin] 300 mg PO DAILY 04/09/18 04/09/18 HYDROcodone/APAP 5-325MG [[place] 1 tab PO TID PRN 04/09/18 04/09/18 5-325] Previous Rx's Medication Instructions Recorded Furosemide [Lasix] 40 mg PO DAILY #30 tab 12/11/17 cloNIDine HCL [Catapres] 0.2 mg PO BID #60 tab 12/11/17 Carvedilol [Coreg*] 12.5 mg PO BID-W/MEALS #30 tab 01/20/18 hydrALAZINE HCL [Apresoline] 50 mg PO TID #60 tab 01/20/18 Allergies Allergy/AdvReac Type Severity Reaction Status Date / Time Penicillins Allergy Unknown Verified 04/09/18 17:15 Review of Systems ROS Statement: Those systems with pertinent positive or pertinent negative responses have been documented in the HPI. ROS Other: All systems not noted in ROS Statement are negative. 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, insulin-dependent diabetes mellitus, diabetic peripheral neuropathy, diabetic nephropathy, chronic renal failure with stage III chronic kidney disease with a baseline creatinine of 1.6-1.7, history of CHF and based on that echocardiogram that was done in 2018, the patient had a ejection fraction of 40-45%, history of severe ischemic cardiac myopathy and the patient has a AICD in place, coronary artery disease, hypertension, hyperlipidemia, depression him a previous history of acute respiratory failure requiring intubation mechanical ventilation, bipolar disorder, right ankle sprain wearing a immobilizing boot on outpatient basis Last Myocardial Infarction Date:: 2004 History of Any Multi-Drug Resistant Organisms: None Reported Past Surgical History: AICD, Heart Catheterization With Stent, Pacemaker Past Anesthesia/Blood Transfusion Reactions: No Reported Reaction Date of Last Stent Placement:: 2004 Type of Cardiac Device: Permanent Pacemaker, AICD Device Placement Date:: 09/2004 Past Psychological History: Bipolar Smoking Status: Current every day smoker Past Alcohol Use History: None Reported Past Drug Use History: None Reported - Past Family History Father Family Medical History: Cancer Additional Family Medical History / Comment(s): Paternal grandfather with CAD Mother Family Medical History: Cancer Additional Family Medical History / Comment(s): Maternal grandmother had CAD. Mother had cancer. General Exam Limitations: no limitations General appearance: alert, in no apparent distress, anxious, in distress, obese Head exam: Present: atraumatic, normocephalic, normal inspection Eye exam: Present: normal appearance, PERRL, EOMI. Absent: scleral icterus, conjunctival injection, periorbital swelling ENT exam: Present: normal exam, mucous membranes moist Neck exam: Present: normal inspection. Absent: tenderness, meningismus, lymphadenopathy Respiratory exam: Present: respiratory distress, wheezes, rales, accessory muscle use, decreased breath sounds, prolonged expiratory. Absent: rhonchi, stridor Cardiovascular Exam: Present: normal rhythm, tachycardia, normal heart sounds. Absent: systolic murmur, diastolic murmur, rubs, gallop, clicks GI/Abdominal exam: Present: soft, normal bowel sounds. Absent: distended, tenderness, guarding, rebound, rigid Extremities exam: Present: normal inspection, full ROM, normal capillary refill. Absent: tenderness, pedal edema, joint swelling, calf tenderness Back exam: Present: normal inspection Neurological exam: Present: alert, oriented X3, CN II-XII intact Psychiatric exam: Present: normal affect, normal mood Skin exam: Present: warm, dry, intact, normal color. Absent: rash Course Vital Signs 04/09/18 04/09/18 04/09/18 16:20 16:34 16:49 Temperature 98.8 F Pulse Rate 120 H 118 H Respiratory 28 H 28 H Rate Blood Pressure 137/73 O2 Sat by Pulse 91 L Oximetry 04/09/18 04/09/18 04/09/18 17:05 17:34 17:38 Temperature Pulse Rate 104 H 96 92 Respiratory 18 Rate Blood Pressure 189/96 O2 Sat by Pulse 94 L Oximetry - Reevaluation(s) Reevaluation #1: 04/09/18 18:06 Patient in such distress placed on BiPAP upon initial presentation. Symptoms are improved on BiPAP EKG Findings - EKG Comments: EKG Findings:: EKG shows undetermined rhythm rate of sinus tachycardia 117, [place] 140, QRS 1:30, QTC 496 Medical Decision Making - Medical Decision Making 57 male the ER acute respiratory failure secondary to comorbidities of CHF and COPD. Patient is currently on BiPAP - Lab Data Result diagrams: 04/09/18 16:42 04/09/18 16:42 Lab Results 04/09/18 04/09/18 04/09/18 Range/Units 16:42 16:42 16:42 WBC 8.5 (3.8-10.6) k/uL RBC 6.24 H (4.30-5.90) m/uL Hgb 17.5 (13.0-17.5) gm/dL Hct 57.4 H (39.0-53.0) % MCV 92.1 (80.0-100.0) fL MCH 28.1 (25.0-35.0) pg MCHC 30.5 L (31.0-37.0) g/dL RDW 16.5 H (11.5-15.5) % Plt Count 83 L (150-450) k/uL Neutrophils % (Manual) 60 % Band Neutrophils % 7 % Lymphocytes % (Manual) 21 % Monocytes % (Manual) 12 % Neutrophils # (Manual) 5.60 (1.3-7.7) k/uL Lymphocytes # (Manual) 1.79 (1.0-4.8) k/uL Monocytes # (Manual) 1.02 H (0-1.0) k/uL Nucleated RBCs 0 (0-0) /100 WBC Manual Slide Review Performed Large Platelets Present Polychromasia Present Hypochromasia Marked Anisocytosis Slight PT (9.0-12.0) sec INR (<1.2) APTT (22.0-30.0) sec Sodium 140 (137-145) mmol/L Potassium 4.8 (3.5-5.1) mmol/L Chloride 101 (98-107) mmol/L Carbon Dioxide 32 H (22-30) mmol/L Anion Gap 7 mmol/L BUN 34 H (9-20) mg/dL Creatinine 1.40 H (0.66-1.25) mg/dL Est GFR (CKD-EPI)AfAm 65 (>60 ml/min/1.73 sqM) Est GFR (CKD-EPI)NonAf 56 (>60 ml/min/1.73 sqM) Glucose 183 H (74-99) mg/dL Calcium 9.4 (8.4-10.2) mg/dL Magnesium 2.2 (1.6-2.3) mg/dL Total Bilirubin 0.9 (0.2-1.3) mg/dL AST 29 (17-59) U/L ALT 27 (21-72) U/L Alkaline Phosphatase 97 (38-126) U/L Total Creatine Kinase 47 L (55-170) U/L CK-MB (CK-2) 1.5 (0.0-2.4) ng/mL CK-MB (CK-2) Rel Index 3.2 Troponin I 0.063 H* (0.000-0.034) ng/mL NT-Pro-B Natriuret Pep pg/mL Total Protein 6.6 (6.3-8.2) g/dL Albumin 3.6 (3.5-5.0) g/dL 04/09/18 04/09/18 Range/Units 16:42 16:42 WBC (3.8-10.6) k/uL RBC (4.30-5.90) m/uL Hgb (13.0-17.5) gm/dL Hct (39.0-53.0) % MCV (80.0-100.0) fL MCH (25.0-35.0) pg MCHC (31.0-37.0) g/dL RDW (11.5-15.5) % Plt Count (150-450) k/uL Neutrophils % (Manual) % Band Neutrophils % % Lymphocytes % (Manual) % Monocytes % (Manual) % Neutrophils # (Manual) (1.3-7.7) k/uL Lymphocytes # (Manual) (1.0-4.8) k/uL Monocytes # (Manual) (0-1.0) k/uL Nucleated RBCs (0-0) /100 WBC Manual Slide Review Large Platelets Polychromasia Hypochromasia Anisocytosis PT 11.5 (9.0-12.0) sec INR 1.2 H (<1.2) APTT 26.1 (22.0-30.0) sec Sodium (137-145) mmol/L Potassium (3.5-5.1) mmol/L Chloride (98-107) mmol/L Carbon Dioxide (22-30) mmol/L Anion Gap mmol/L BUN (9-20) mg/dL Creatinine (0.66-1.25) mg/dL Est GFR (CKD-EPI)AfAm (>60 ml/min/1.73 sqM) Est GFR (CKD-EPI)NonAf (>60 ml/min/1.73 sqM) Glucose (74-99) mg/dL Calcium (8.4-10.2) mg/dL Magnesium (1.6-2.3) mg/dL Total Bilirubin (0.2-1.3) mg/dL AST (17-59) U/L ALT (21-72) U/L Alkaline Phosphatase (38-126) U/L Total Creatine Kinase (55-170) U/L CK-MB (CK-2) (0.0-2.4) ng/mL CK-MB (CK-2) Rel Index Troponin I (0.000-0.034) ng/mL NT-Pro-B Natriuret Pep 874 pg/mL Total Protein (6.3-8.2) g/dL Albumin (3.5-5.0) g/dL - Radiology Data Radiology results: report reviewed (Chest x-ray positive for CHF), image reviewed Critical Care Time Critical Care Time: Yes Total Critical Care Time: 31 Disposition Clinical Impression: CHF (congestive heart failure), COPD (chronic obstructive pulmonary disease), Dyspnea, COPD exacerbation, Hypoxia Disposition: ADMITTED IP TO THIS HOSP Condition: Serious Is patient prescribed a controlled substance at d/c from ED?: No Referrals: Sylvia Gan MD [Primary Care Provider] - 1-2 days
[2018-04-09 17:20] LABS: Creatine Kinase MB 1.5 ng/mL (0.0-2.4)
[2018-04-09 17:21] LABS: Troponin I 0.063 ng/mL (0.000-0.034)
[2018-04-09 17:26] LABS: Band Neutrophils % 7 %; INR 1.2 (<1.2); Lymphocytes # (M) 1.79 k/uL (1.0-4.8); Monocytes # (M) 1.02 k/uL (0-1.0); Neutrophils % (M) 60 %; Nucleated Red Blood Cells 0 /100 WBC (0-0); Partial Thromboplastin Time 26.1 sec (22.0-30.0); Prothrombin Time 11.5 sec (9.0-12.0); Total Cells Counted 100
[2018-04-09 17:27] LABS: Large Platelets Present; Platelet Count 83 k/uL (150-450); Polychromasia Present
[2018-04-09] MEDS ORDERED: methylPREDNISolone SOD SUCCI 125 MG/2 ML VIAL IV STA (18:03)
[2018-04-09] MEDS: FUROSEMIDE 10 MG/ML 4 ML VIAL IV SCH ×2 (18:52→22:42)
[2018-04-09] MEDS: IPRATROPIUM-ALBUTEROL 3 ML NEB INHALATION SCH (20:30)
[2018-04-09 20:49] LABS: Glucose,Whole Blood 152 mg/dL (75-99)
[2018-04-09] MEDS ORDERED: DOCUSATE 100 MG CAP PO PRN (21:18)
[2018-04-09] MEDS ORDERED: NALOXONE HCL SUBLINGUAL PRN (21:20)
[2018-04-09] MEDS ORDERED: ALBUTEROL NEBULIZED 2.5 MG/3 ML INHALATION PRN (21:20)
[2018-04-09] MEDS ORDERED: [UNRECOGNIZED DRUG - OTHER] SUBLINGUAL PRN (21:20)
[2018-04-09] MEDS ORDERED: BUPRENORPHINE HCL SUBLINGUAL PRN (21:20)
[2018-04-09] MEDS: PRAVASTATIN SODIUM 40 MG TAB PO SCH (21:42)
[2018-04-09] MEDS: CARVEDILOL 12.5 MG TAB PO SCH (21:42)
[2018-04-09] MEDS: traZODone HCL 100 MG TAB PO SCH (21:42)
[2018-04-09] MEDS: cloNIDine HCL 0.2 MG TAB PO SCH (21:42)
[2018-04-09] MEDS: hydrALAZINE HCL 50 MG TAB PO SCH (21:42)
[2018-04-09] MEDS: QUEtiapine 200 MG TAB PO SCH (21:45)
[2018-04-09] MEDS: PREGABALIN 75 MG CAP PO SCH (21:45)
[2018-04-09] MEDS: methylPREDNISolone SOD SUCCI 125 MG/2 ML VIAL IV SCH (22:42)
--- NOTE | 2018-04-10 04:50 | HP ---
HISTORY AND PHYSICAL CHIEF COMPLAINT: Shortness of breath. HISTORY OF PRESENT ILLNESS: This 57-year-old gentleman with a past medical history of multiple medical problems including CAD, CHF, COPD, diabetes, hypertension, hyperlipidemia, AICD, CAD stent being followed by Dr. Gan in the outpatient setting, was complaining of shortness of breath. The patient also had increased shortness of breath. The EMS brought the patient to the [facility] and the pulse ox was found to be 70%. Patient is on high -flow oxygen, and the patient admitted for further evaluation and treatment. Currently the patient is drowsy. Patient has received some Seroquel and the patient is also on BiPAP, which the patient is on at home. BiPAP settings are noted. Patient closely monitored. Sats are in the low 90s at this time. A detailed history cannot be taken. Most of the history taken from my discussion with staff at this time. PAST MEDICAL HISTORY: CAD, CHF, cardiomyopathy, COPD, diabetes, hypertension, hyperlipidemia, pneumonia, history of sleep apnea on BiPAP. MEDICATIONS ARE: 1. Neurontin 300 mg p.o. daily. 2. Zubsolv 1 tablets b.i.d. p.r.n. 3. Desyrel 200 mg q.h.s. 4. Apresoline 50 mg p.o. daily. 5. Catapres 0.2 p.o. b.i.d. 6. Norvasc 10 mg p.o. daily. 7. Seroquel 200 mg p.o. daily. 8. Lyrica 75 mg p.o. b.i.d. 9. Pravachol 40 mg q.h.s. 10.Prinivil 20 mg p.o. daily. 11.[place] 5 mg t.i.d. p.r.n. 12.Lasix 40 mg p.o. daily. 13.Breo Ellipta 1 daily. 14.Lexapro 20 mg daily. 15.Coreg 12.5 mg b.i.d. 16.Zyloprim 100 mg p.o. daily. 17.Ventolin HFA two puffs q.i.d. p.r.n. ALLERGIES: PENICILLIN. FAMILY HISTORY: History of CAD in the family. SOCIAL HISTORY: History of smoking per chart. REVIEW OF SYSTEMS: Could not be taken because of the above mentioned reasons. PHYSICAL EXAM: VITAL SIGNS: Pulse is 98, blood pressure 183/103, respiration 20, temperature 97 degrees, pulse ox 98% on BiPAP. HEENT: Conjunctivae normal. Oral mucosa moist. NECK is no jugular venous distention. No carotid bruit. No lymph node enlargement. CARDIOVASCULAR: S1-S2. No S3, no S4. RESPIRATORY: Breath sounds diminished in the bases. Bilateral scattered rhonchi and crackles. Expiratory wheezing also present. ABDOMEN: Soft, nontender. No mass palpable. LEGS: No edema. No swelling. NERVOUS SYSTEM: Patient is sedated as mentioned earlier. Full exam could not be done. SKIN: No ulcer, rash, or bleeding. LYMPHATICS: No lymph nodes palpable in the neck, axillae or groin. JOINTS: No active deforming arthropathy. LABS: WBC 8.5, hemoglobin 17.5. INR is 1.2. Creatinine is 1.40. Troponin 0.063. Chest x- ray, possible CHF. ASSESSMENT: 1. Shortness of breath, possibly multifactorial with congestive heart failure acute exacerbation as well as chronic obstructive pulmonary disease acute exacerbation. 2. Troponin 0.063, rule out acute non ST segment myocardial infarction. 3. Creatinine 1.40, possible chronic kidney disease stage 3. 4. History of coronary artery disease. 5. History of diabetes type 2. 6. Hypertension. 7. Hyperlipidemia. 8. History of chronic hypoxic respiratory failure. 9. History of pneumonia. 10.History of sleep apnea. 11.History of severe ischemic cardiomyopathy, ejection fraction 40-45% with acute on chronic systolic dysfunction. 12.History of AICD. 13.History of coronary artery disease/stent. 14.Bipolar. 15.Continued ongoing nicotine dependence. 16.NO CODE, NO CPR, NO VENT. RECOMMENDATIONS AND DISCUSSION: In this 57-year-old gentleman who presented with multiple complex medical issues, we will monitor the patient closely. Continue the current medications, management. Optimize the bronchodilator treatment. Continue with Lasix and monitor fluid balance closely. Cardiology and pulmonology consultations. Continue rest of medications. Prognosis guarded because of multiple complex medical issues. Further recommendations to follow. MMODL / IJN: [id number] /
[2018-04-10 05:43] LABS: Glucose,Whole Blood 154 mg/dL (75-99)
[2018-04-10] MEDS: methylPREDNISolone SOD SUCCI 125 MG/2 ML VIAL IV SCH ×4 (06:21→22:38)
[2018-04-10] MEDS: INSULIN ASPART 100 UNIT/ML 1 ML 10 ML VIAL SQ SCH ×4 (06:22→21:48)
[2018-04-10] MEDS: CARVEDILOL 12.5 MG TAB PO SCH ×2 (06:22→17:59)
[2018-04-10 06:58] LABS: Anisocytosis Slight; Basophils % (A) 0 %; Eosinophils % (A) 0 %; HCT 54.2 % (39.0-53.0); HGB 16.1 gm/dL (13.0-17.5); Hypochromasia Moderate; Lymphocytes # (A) 0.8 k/uL (1.0-4.8); Lymphocytes % (A) 9 %; MCHC 29.8 g/dL (31.0-37.0); MCV 90.6 fL (80.0-100.0); Mean Platelet Volume 10.5; Monocytes # (A) 0.3 k/uL (0-1.0); Monocytes % (A) 4 %; Neutrophils # (A) 6.9 k/uL (1.3-7.7); Neutrophils % (A) 85 %; Platelet Count 100 k/uL (150-450); RBC 5.99 m/uL (4.30-5.90); RDW 16.3 % (11.5-15.5); WBC 8.1 k/uL (3.8-10.6)
[2018-04-10 07:28] LABS: Calcium 9.2 mg/dL (8.4-10.2); Potassium 5.1 mmol/L (3.5-5.1)
[2018-04-10] MEDS: IPRATROPIUM-ALBUTEROL 3 ML NEB INHALATION SCH ×4 (07:46→20:10)
[2018-04-10] MEDS: SYMBICORT 80-4.5 MCG INHALER INHALATION SCH ×2 (07:46→20:10)
[2018-04-10] MEDS ORDERED: ENOXAPARIN 40 MG/0.4 ML SYRINGE SQ SCH (09:00)
[2018-04-10] MEDS ORDERED: FUROSEMIDE 40 MG TAB PO SCH (09:00)
[2018-04-10] MEDS ORDERED: LISINOPRIL 20 MG TAB PO SCH (09:00)
[2018-04-10] MEDS: FUROSEMIDE 10 MG/ML 4 ML VIAL IV SCH (09:07)
--- NOTE | 2018-04-10 09:09 | P.CRDCN ---
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 He really presented to the hospital with symptoms of progressively worsening shortness of breath, on EMS arrival his oxygen saturation was documented to be 70%. Patient was placed on high flow oxygen and brought to the emergency room for further evaluation. At present this morning he is currently on BiPAP. Chest x-ray on arrival here revealed findings suggestive of decompensating congestive heart failure with moderate interstitial edema and pulmonary vascular congestion. EKG on arrival here showed a sinus tachycardia with nonspecific ST-T wave changes. Blood pressure on arrival here 137/73, heart rate 120, 91% on 15% nonrebreather. White blood cell count is normal, hemoglobin 16.1, platelet count on arrival 83, 100 this morning. Sodium 142, potassium 5.1, BUN 34 and creatinine 1.4 on admission, 45 and 2.0 this morning. Ache knees and 2.2. BNP level 874. Troponin 0.063. 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, insulin-dependent diabetes mellitus, diabetic peripheral neuropathy, diabetic nephropathy, chronic renal failure with stage III chronic kidney disease with a baseline creatinine of 1.6-1.7, history of CHF and based on that echocardiogram that was done in 2018, the patient had a ejection fraction of 40-45%, history of severe ischemic cardiac myopathy and the patient has a AICD in place, coronary artery disease, hypertension, hyperlipidemia, depression him a previous history of acute respiratory failure requiring intubation mechanical ventilation, bipolar disorder, right ankle sprain wearing a immobilizing boot on outpatient basis Last Myocardial Infarction Date:: 2004 History of Any Multi-Drug Resistant Organisms: None Reported Past Surgical History: AICD, Heart Catheterization With Stent, Pacemaker Past Anesthesia/Blood Transfusion Reactions: No Reported Reaction Date of Last Stent Placement:: 2004 Type of Cardiac Device: Permanent Pacemaker, AICD Device Placement Date:: 09/2004 Past Psychological History: Bipolar Smoking Status: Current every day smoker Past Alcohol Use History: None Reported Additional Past Alcohol Use History / Comment(s): STARTED SMOKING AT AGE 19 SMOKED 1PPD THEN DECREASED TO 1 PACK EVERY 3 DAYS. Past Drug Use History: None Reported - Past Family History Father Family Medical History: Cancer Additional Family Medical History / Comment(s): Paternal grandfather with CAD Mother Family Medical History: Cancer Additional Family Medical History / Comment(s): Maternal grandmother had CAD. Mother had cancer. Medications and Allergies Home Medications Medication Instructions Recorded Confirmed Type amLODIPine [Norvasc] 10 mg PO DAILY 01/05/16 04/09/18 History traZODone HCL [Desyrel] 200 mg PO HS 01/05/16 04/09/18 History Allopurinol [Zyloprim] 100 mg PO DAILY 05/21/17 04/09/18 History QUEtiapine [SEROquel] 200 mg PO HS 05/21/17 04/09/18 History Albuterol Inhaler [Ventolin Hfa 2 puff INHALATION RT-QID PRN 11/25/17 04/09/18 History Inhaler] Fluticasone/Vilanterol [Breo 1 puff INHALATION RT-DAILY 11/25/17 04/09/18 History Ellipta 100-25 Mcg Inhaler] Pregabalin [Lyrica] 75 mg PO BID 11/25/17 04/09/18 History Furosemide [Lasix] 40 mg PO DAILY #30 tab 12/11/17 04/09/18 Rx cloNIDine HCL [Catapres] 0.2 mg PO BID #60 tab 12/11/17 04/09/18 Rx Lisinopril [Prinivil] 20 mg PO DAILY 01/14/18 04/09/18 History Pravastatin Sodium [Pravachol] 40 mg PO HS 01/14/18 04/09/18 History Carvedilol [Coreg*] 12.5 mg PO BID-W/MEALS #30 tab 01/20/18 04/09/18 Rx hydrALAZINE HCL [Apresoline] 50 mg PO TID #60 tab 01/20/18 04/09/18 Rx Buprenorphine HCl/Naloxone HCl 1 tab SUBLINGUAL BID PRN 04/09/18 04/09/18 History [Zubsolv 5.7-1.4 mg Tablet Sl] Escitalopram [Lexapro] 20 mg PO DAILY 04/09/18 04/09/18 History Gabapentin [Neurontin] 300 mg PO DAILY 04/09/18 04/09/18 History HYDROcodone/APAP 5-325MG [[place] 1 tab PO TID PRN 04/09/18 04/09/18 History 5-325] Allergies Allergy/AdvReac Type Severity Reaction Status Date / Time Penicillins Allergy Unknown Verified 04/09/18 17:15 Physical Exam Vitals: Vital Signs Temp Pulse Pulse Resp BP BP Pulse Ox 04/10/18 08:00 97.5 F L 88 83 16 137/92 92 L 04/10/18 07:47 88 04/10/18 04:00 98.0 F 86 18 169/98 94 L 04/10/18 00:00 97.4 F L 96 18 125/88 92 L 04/09/18 20:44 96 04/09/18 20:34 94 04/09/18 20:00 97.0 F L 98 20 183/103 96 04/09/18 19:23 105 H 185/107 97 04/09/18 18:49 87 22 182/113 91 L 04/09/18 17:38 92 18 189/96 94 L 04/09/18 17:34 96 04/09/18 17:05 104 H 04/09/18 16:49 118 H 04/09/18 16:34 28 H 04/09/18 16:20 98.8 F 120 H 28 H 137/73 91 L Intake and Output 04/09/18 04/10/18 04/10/18 22:59 06:59 14:59 Intake Total 10 Output Total 300 Balance -290 Intake: IV 10 0.9 10 Output: Urine 300 Other: Voiding Method Urinal Urinal Weight 130.181 kg PHYSICAL EXAMINATION: GENERAL: 57-year-old -[place]incent[place] gentleman groggy, difficult to arouse this morning. In no acute distress. HEENT: Head is atraumatic, normocephalic. Pupils equal, round. Sclera anicteric. Conjunctiva are clear. Mucous membranes of the mouth are moist. Neck is supple. There is no elevated jugular venous pressure. No carotid bruit is heard. HEART EXAMINATION: Heart S1, S2 normal. No murmur or gallop heard. CHEST EXAMINATION: Lungs reveal scattered coarse rhonchi throughout ABDOMEN: Soft, nontender. Bowel sounds are heard. No organomegaly noted. EXTREMITIES: 1+ peripheral pulses with trace evidence of peripheral edema and no calf tenderness noted. NEUROLOGIC [patient is sleepy, difficult to arouse Results 04/11/18 05:22 04/11/18 05:22 Cardiac Enzymes 04/09/18 04/09/18 Range/Units 16:42 16:42 AST 29 (17-59) U/L CK-MB (CK-2) 1.5 (0.0-2.4) ng/mL Troponin I 0.063 H* (0.000-0.034) ng/mL Coagulation 04/09/18 Range/Units 16:42 PT 11.5 (9.0-12.0) sec APTT 26.1 (22.0-30.0) sec CBC 04/09/18 04/10/18 Range/Units 16:42 06:20 WBC 8.5 8.1 (3.8-10.6) k/uL RBC 6.24 H 5.99 H (4.30-5.90) m/uL Hgb 17.5 16.1 (13.0-17.5) gm/dL Hct 57.4 H 54.2 H (39.0-53.0) % Plt Count 83 L 100 L (150-450) k/uL Comprehensive Metabolic Panel 04/09/18 04/10/18 Range/Units 16:42 06:20 Sodium 140 142 (137-145) mmol/L Potassium 4.8 5.1 (3.5-5.1) mmol/L Chloride 101 102 (98-107) mmol/L Carbon Dioxide 32 H 32 H (22-30) mmol/L BUN 34 H 45 H (9-20) mg/dL Creatinine 1.40 H 2.00 H (0.66-1.25) mg/dL Glucose 183 H 162 H (74-99) mg/dL Calcium 9.4 9.2 (8.4-10.2) mg/dL AST 29 (17-59) U/L ALT 27 (21-72) U/L Alkaline Phosphatase 97 (38-126) U/L Total Protein 6.6 (6.3-8.2) g/dL Albumin 3.6 (3.5-5.0) g/dL Current Medications Generic Name Dose Route Start Last Admin Trade Name Freq PRN Reason Stop Dose Admin Hydrocodone Bitart/Acetaminophen 1 each 04/09/18 21:20 [place] 5-325 PO TID PRN MODERATE Pain Albuterol Sulfate 2.5 mg 04/09/18 21:20 Ventolin Nebulized INHALATION RT-QID PRN Shortness Of Breath Albuterol/Ipratropium 3 ml 04/09/18 20:00 04/10/18 07:46 Duoneb 0.5 Mg-3 Mg/3 Ml Soln INHALATION 3 ml RT-QID GARIMA Administration Allopurinol 100 mg 04/10/18 09:00 Zyloprim PO DAILY [facility] Amlodipine Besylate 10 mg 04/10/18 09:00 Norvasc PO DAILY [facility] Budesonide/Formoterol Fumarate 2 puff 04/10/18 08:00 04/10/18 07:46 Symbicort 80-4.5 Mcg Inhaler INHALATION Not Given RT-BID [facility] Carvedilol 12.5 mg 04/09/18 21:30 04/10/18 06:22 Coreg PO 12.5 mg BID-W/MEALS GARIMA Administration Clonidine 0.2 mg 04/09/18 21:30 04/09/18 21:42 Catapres PO 0.2 mg BID GARIMA Administration Docusate Sodium 100 mg 04/09/18 21:18 Colace PO BID PRN Constipation Enoxaparin Sodium 40 mg 04/10/18 09:00 Lovenox SQ DAILY [facility] Escitalopram Oxalate 20 mg 04/10/18 09:00 Lexapro PO DAILY [facility] Gabapentin 300 mg 04/10/18 09:00 Neurontin PO DAILY [facility] Hydralazine HCl 50 mg 04/09/18 22:00 04/09/18 21:42 Apresoline PO 50 mg TID GARIMA Administration Insulin Aspart 0 unit 04/10/18 07:30 04/10/18 06:22 Novolog SQ 2 unit ACHS GARIMA Administration Protocol Lisinopril 20 mg 04/10/18 09:00 Zestril PO DAILY GARIMA Methylprednisolone Sodium Succinate 60 mg 04/10/18 00:00 04/10/18 06:21 Solu-Medrol IV 60 mg Q6HR GARIMA Administration Non-Formulary Medication 1 tab 04/09/18 21:20 Buprenorphine Hcl/Naloxone Hcl [Zubsolv 5.7-1.4 Mg Tablet Sl] SUBLINGUAL BID PRN WITHDRAWAL Pravastatin Sodium 40 mg 04/09/18 21:00 04/09/18 21:42 Pravachol PO 40 mg HS GARIMA Administration Pregabalin 75 mg 04/09/18 21:30 04/09/18 21:45 Lyrica PO 75 mg BID GARIMA Administration Quetiapine Fumarate 200 mg 04/09/18 21:30 04/09/18 21:45 Seroquel PO 200 mg HS GARIMA Administration Trazodone HCl 200 mg 04/09/18 21:30 04/09/18 21:42 Desyrel PO 200 mg HS GARIMA Administration Intake and Output 04/09/18 04/10/18 04/10/18 22:59 06:59 14:59 Intake Total 10 Output Total 300 Balance -290 Intake: IV 10 0.9 10 Output: Urine 300 Other: Voiding Method Urinal Urinal Weight 130.181 kg 04/10/18 06:20 04/10/18 06:20 EKG Interpretations (text) EKG shows a sinus tachycardia with LVH strain pattern nonspecific ST-T wave change Assessment and Plan Plan: Assessment and plan #1 acute hypoxic respiratory failure, possible combination of COPD exacerbation , and systolic congestive heart failure acute on chronic #2 chronic renal failure #3 diabetes #4 hypertension #5 hyperlipidemia #6 sleep apnea #7 history of prior NH and stent #8 ischemic cardiomyopathy with prior AICD #9 nicotine dependence #10 COPD #11 bipolar disorder #12 abnormal troponin, upon review of prior admissions, patient consistently has abnormality in his troponin value, likely secondary to oxygen supply and demand mismatch and underlying cardiomyopathy Plan Patient had an echocardiogram with Doppler study performed in November of this year which revealed an ejection fraction of 45-50%, moderate concentric LVH. We will repeat an echo this admission, patient did get IV Lasix on admission here, creatinine went from 1.4-2.0. We have placed the IV Lasix on hold currently. We will obtain a d-dimer. Continue Coreg and lisinopril. Further recommendations to follow. DNP note has been reviewed, I agree with a documented findings and plan of care. Patient was seen and examined.
[2018-04-10] MEDS: hydrALAZINE HCL 50 MG TAB PO SCH ×3 (09:13→21:48)
[2018-04-10] MEDS: PREGABALIN 75 MG CAP PO SCH ×2 (09:13→21:48)
[2018-04-10] MEDS: amLODIPine 10 MG TAB PO SCH (09:13)
[2018-04-10] MEDS: ESCITALOPRAM 20 MG TAB PO SCH (09:13)
[2018-04-10] MEDS: ALLOPURINOL 100 MG TAB PO SCH (09:13)
[2018-04-10] MEDS: GABAPENTIN 300 MG CAP PO SCH (09:13)
[2018-04-10] MEDS: cloNIDine HCL 0.2 MG TAB PO SCH ×2 (09:13→21:47)
--- NOTE | 2018-04-10 11:07 | ECHOF ---
Referral Reason:sob MEASUREMENTS -------- HEIGHT: 182.9 cm WEIGHT: 130.2 kg BP: 137/92 RVIDd: 2.8 cm (< 3.3) IVSd: 1.5 cm (0.6 - 1.1) LVIDd: 5.6 cm (3.9 - 5.3) LVPWd: 2.0 cm (0.6 - 1.1) IVSs: 2.0 cm LVIDs: 3.9 cm LVPWs: 3.0 cm Ao Diam: 3.4 cm (2.0 - 3.7) AV Cusp: 2.3 cm (1.5 - 2.6) LA Diam: 4.5 cm (2.7 - 3.8) MV EXCURSION: 16.790 mm (> 18.000) MV EF SLOPE: 30 mm/s (70 - 150) EPSS: 1.5 cm MV E Rogers: 0.56 m/s MV DecT: 187 ms MV A Rogers: 0.81 m/s MV E/A Ratio: 0.70 RAP: 5.00 mmHg RVSP: 24.65 mmHg FINDINGS -------- Sinus rhythm. AICD This was a technically difficult study with suboptimal views. The left ventricular size is normal. There is severe concentric left ventricular hypertrophy. Ove rall left ventricular systolic function is low-normal with, an EF between 50 - 55 %. The right ventricle is normal in size. The left atrium is mildly dilated. The right atrium is normal in size. Lumason used The aortic valve is trileaflet, and appears structurally normal. No aortic stenosis or regurgitation. The mitral valve leaflets are mildly thickened. There is trace mitral regurgitation. Trace tricuspid regurgitation present. The right ventricular systolic pressure, as measured by Dopp ler, is 24.65mmHg. Pulmonic valve appears structurally normal. The aortic root size is normal. The pericardium is normal. CONCLUSIONS -------- 1. Sinus rhythm. 2. AICD 3. This was a technically difficult study with suboptimal views. 4. The left ventricular size is normal. 5. There is severe concentric left ventricular hypertrophy. 6. Overall left ventricular systolic function is low-normal with, an EF between 50 - 55 %. 7. The right ventricle is normal in size. 8. The left atrium is mildly dilated. 9. The right atrium is normal in size. 10. Lumason used 11. The aortic valve is trileaflet, and appears structurally normal. No aortic stenosis or regurgitat ion. 12. The mitral valve leaflets are mildly thickened. 13. There is trace mitral regurgitation. 14. Trace tricuspid regurgitation present. 15. The right ventricular systolic pressure, as measured by Doppler, is 24.65mmHg. 16. Pulmonic valve appears structurally normal. 17. The aortic root size is normal. 18. The pericardium is normal. OPERATOR SPECIALIST COMMUNICATIONS: Pilar Houston RDCS
[2018-04-10 11:41] LABS: Glucose,Whole Blood 149 mg/dL (75-99)
[2018-04-10 13:02] LABS: Hemoglobin A1C 6.6 % (4.0-6.0)
--- NOTE | 2018-04-10 14:15 | P.CNPUL ---
History of Present Illness Consult date: 04/10/18 Reason for consult: dyspnea, COPD History of present illness: This 57-year-old -[place] male presenting with increased cough, thick purulent sputum production, and increased bronchospasm and wheezing for the past 1 week. The patient is known to me from previous hospitalizations. He has multiple medical problems and comorbidities. He is known to have COPD and addition to coronary artery disease, chronic renal failure with stage III chronic kidney disease, congestion heart failure with a previous ejection fraction of 40-45% and the patient has an AICD in place, he has also history of hypertension, hyperlipidemia, depression, bipolar disorder and diabetic peripheral neuropathy and diabetes mellitus. He has also history of obstructive sleep apnea. His current white cell count is at 8.1. His renal function isn't. The patient's creatinine is at 2.0. Repeat echocardiogram was done during this current admission showed improvement in LV function with an ejection fraction of 50-55% and the right ventricular systolic pressure was measured to be 24 and the patient's cardiac rhythm is sinus mechanism. The chest x-ray shows increased interstitial markings bilaterally consistent with pulmonary vascular congestion. Superimposed pneumonia cannot be completely excluded. No significant signs of fluid overload. No worsening in lower extremity edema. No signs of any fluid gain. He has been exposed to children who have had respiratory tract infection at home. No altered mentation. No pleurisy. No hemoptysis. The amount of mucus is been coughed out is copious and purulent. Review of Systems Constitutional: Reports fatigue, Reports weakness Eyes: denies blurred vision, denies bulging eye, denies decreased vision Ears: deny: decreased hearing, ear discharge, earache, tinnitus Ears, nose, mouth and throat: Denies headache, Denies sore throat Cardiovascular: Reports dyspnea on exertion, Reports shortness of breath Respiratory: Reports cough, Reports cough with sputum, Reports dyspnea, Reports wheezing Gastrointestinal: Denies abdominal pain, Denies diarrhea, Denies nausea, Denies vomiting Genitourinary: Reports as per HPI Musculoskeletal: Denies myalgias Musculoskeletal: absent: ankle pain, ankle stiffness, ankle swelling Integumentary: Denies pruritus, Denies rash Neurological: Denies numbness, Denies weakness Psychiatric: Denies anxiety, Denies depression Endocrine: Denies fatigue, Denies weight change Hematologic/Lymphatic: Reports as per HPI Allergic/Immunologic: Reports as per HPI Past Medical History Past Medical History: Coronary Artery Disease (CAD), Chest Pain / Angina, Heart Failure, COPD, Diabetes Mellitus, Hyperlipidemia, Hypertension, Myocardial Infarction (MD), Pneumonia, Renal Disease, Sleep Apnea/CPAP/BIPAP Additional Past Medical History / Comment(s): COPD, suspected obstructive sleep apnea, chronic hypoxic and hypercapnic the story failure, insulin-dependent diabetes mellitus, diabetic peripheral neuropathy, diabetic nephropathy, chronic renal failure with stage III chronic kidney disease with a baseline creatinine of 1.6-1.7, history of CHF and based on that echocardiogram that was done in 2018, the patient had a ejection fraction of 40-45%, history of severe ischemic cardiac myopathy and the patient has a AICD in place, coronary artery disease, hypertension, hyperlipidemia, depression him a previous history of acute respiratory failure requiring intubation mechanical ventilation, bipolar disorder, right ankle sprain wearing a immobilizing boot on outpatient basis Last Myocardial Infarction Date:: 2004 History of Any Multi-Drug Resistant Organisms: None Reported Past Surgical History: AICD, Heart Catheterization With Stent, Pacemaker Past Anesthesia/Blood Transfusion Reactions: No Reported Reaction Date of Last Stent Placement:: 2004 Type of Cardiac Device: Permanent Pacemaker, AICD Device Placement Date:: 09/2004 Past Psychological History: Bipolar Smoking Status: Current every day smoker Past Alcohol Use History: None Reported Additional Past Alcohol Use History / Comment(s): STARTED SMOKING AT AGE 19 SMOKED 1PPD THEN DECREASED TO 1 PACK EVERY 3 DAYS. Past Drug Use History: None Reported - Past Family History Father Family Medical History: Cancer Additional Family Medical History / Comment(s): Paternal grandfather with CAD Mother Family Medical History: Cancer Additional Family Medical History / Comment(s): Maternal grandmother had CAD. Mother had cancer. Medications and Allergies Home Medications Medication Instructions Recorded Confirmed Type amLODIPine [Norvasc] 10 mg PO DAILY 01/05/16 04/09/18 History traZODone HCL [Desyrel] 200 mg PO HS 01/05/16 04/09/18 History Allopurinol [Zyloprim] 100 mg PO DAILY 05/21/17 04/09/18 History QUEtiapine [SEROquel] 200 mg PO HS 05/21/17 04/09/18 History Albuterol Inhaler [Ventolin Hfa 2 puff INHALATION RT-QID PRN 11/25/17 04/09/18 History Inhaler] Fluticasone/Vilanterol [Breo 1 puff INHALATION RT-DAILY 11/25/17 04/09/18 History Ellipta 100-25 Mcg Inhaler] Pregabalin [Lyrica] 75 mg PO BID 11/25/17 04/09/18 History Furosemide [Lasix] 40 mg PO DAILY #30 tab 12/11/17 04/09/18 Rx cloNIDine HCL [Catapres] 0.2 mg PO BID #60 tab 12/11/17 04/09/18 Rx Lisinopril [Prinivil] 20 mg PO DAILY 01/14/18 04/09/18 History Pravastatin Sodium [Pravachol] 40 mg PO HS 01/14/18 04/09/18 History Carvedilol [Coreg*] 12.5 mg PO BID-W/MEALS #30 tab 01/20/18 04/09/18 Rx hydrALAZINE HCL [Apresoline] 50 mg PO TID #60 tab 01/20/18 04/09/18 Rx Buprenorphine HCl/Naloxone HCl 1 tab SUBLINGUAL BID PRN 04/09/18 04/09/18 History [Zubsolv 5.7-1.4 mg Tablet Sl] Escitalopram [Lexapro] 20 mg PO DAILY 04/09/18 04/09/18 History Gabapentin [Neurontin] 300 mg PO DAILY 04/09/18 04/09/18 History HYDROcodone/APAP 5-325MG [[place] 1 tab PO TID PRN 04/09/18 04/09/18 History 5-325] Allergies Allergy/AdvReac Type Severity Reaction Status Date / Time Penicillins Allergy Unknown Verified 04/09/18 17:15 Physical Exam Vitals: Vital Signs Temp Pulse Pulse Resp BP BP Pulse Ox 04/10/18 12:00 97.9 F 82 16 115/73 91 L 04/10/18 11:42 84 04/10/18 11:28 80 91 L 04/10/18 08:00 97.5 F L 88 83 16 137/92 92 L 04/10/18 07:47 88 04/10/18 04:00 98.0 F 86 18 169/98 94 L 04/10/18 00:00 97.4 F L 96 18 125/88 92 L 07/31/18 20:44 96 04/09/18 20:34 94 04/09/18 20:00 97.0 F L 98 20 183/103 96 04/09/18 19:23 105 H 185/107 97 04/09/18 18:49 87 22 182/113 91 L 04/09/18 17:38 92 18 189/96 94 L 04/09/18 17:34 96 04/09/18 17:05 104 H 04/09/18 16:49 118 H 04/09/18 16:34 28 H 04/09/18 16:20 98.8 F 120 H 28 H 137/73 91 L Intake and Output 04/09/18 04/10/18 04/10/18 22:59 06:59 14:59 Intake Total 10 240 Output Total 300 0 Balance -290 240 Intake: IV 10 0.9 10 Oral 240 Output: Urine 300 0 Other: Voiding Method Urinal Urinal Weight 130.181 kg 130.181 kg Gen. appearance, comfortable awake nonacute distress. Head exam was generally normal. There was no scleral icterus or corneal arcus. Mucous membranes were moist. Neck was supple and without jugular venous distension, thyromegaly, or carotid bruits. Carotids were easily palpable bilaterally. There was no adenopathy. Lungs sounds are diminished bilaterally along with scattered rhonchi and scattered expiratory wheezes without the lung [place] bilaterally. Cardiac exam revealed the PMI to be normally situated and sized. The rhythm was regular and no extrasystoles were noted during several minutes of auscultation. The first and second heart sounds were normal and physiologic splitting of the second heart sound was noted. There were no murmurs, rubs, clicks, or gallops. Abdominal exam revealed normal bowel sounds. The abdomen was soft, non-tender, and without masses, organomegaly, or appreciable enlargement of the abdominal aorta. Examination of the extremities revealed easily palpable radial, femoral and pedal pulses. There was no cyanosis, clubbing or edema. Examination of the skin revealed no evidence of significant rashes, suspicious appearing nevi or other concerning lesions. Neurologically the patient is awake and alert and there is no focal neurological deficit. Results - Laboratory Findings CBC and BMP: 04/10/18 06:20 04/10/18 06:20 PT/INR, D-dimer PT 11.5 sec (9.0-12.0) 04/09/18 16:42 INR 1.2 (<1.2) H 04/09/18 16:42 D-Dimer 0.62 mg/L FEU (<0.60) H 04/10/18 09:04 Abnormal lab findings: Abnormal Labs 04/09/18 04/09/18 04/09/18 16:42 16:42 16:42 RBC 6.24 H Hct 57.4 H MCHC 30.5 L RDW 16.5 H Plt Count 83 L Lymphocytes # Monocytes # (Manual) 1.02 H INR D-Dimer Carbon Dioxide 32 H BUN 34 H Creatinine 1.40 H Glucose 183 H POC Glucose (mg/dL) Total Creatine Kinase 47 L Troponin I 0.063 H* 04/09/18 04/09/18 04/10/18 16:42 20:47 05:41 RBC Hct MCHC RDW Plt Count Lymphocytes # Monocytes # (Manual) INR 1.2 H D-Dimer Carbon Dioxide BUN Creatinine Glucose POC Glucose (mg/dL) 152 H 154 H Total Creatine Kinase Troponin I 04/10/18 04/10/18 04/10/18 06:20 06:20 09:04 RBC 5.99 H Hct 54.2 H MCHC 29.8 L RDW 16.3 H Plt Count 100 L Lymphocytes # 0.8 L Monocytes # (Manual) INR D-Dimer 0.62 H Carbon Dioxide 32 H BUN 45 H Creatinine 2.00 H Glucose 162 H POC Glucose (mg/dL) Total Creatine Kinase Troponin I 04/10/18 11:38 RBC Hct MCHC RDW Plt Count Lymphocytes # Monocytes # (Manual) INR D-Dimer Carbon Dioxide BUN Creatinine Glucose POC Glucose (mg/dL) 149 H Total Creatine Kinase Troponin I - Diagnostic Findings Chest x-ray: image reviewed Assessment and Plan Plan: Assessment 1 acute COPD exacerbation with purulent tracheal bronchitis with production of copious amount of purulent respiratory secretions. Underlying pneumonia is currently completely excluded. 2 shortness of breath secondary to above 3 chronic hypoxic respiratory failurechronic hypercapnic respiratory failure secondary to COPD 4 diabetes mellitus 5 diabetic peripheral neuropathy 6 history of congestion heart failure with subsequent improvement in the left ventricular ejection fraction. The patient has had previous history of ischemic cardiomyopathy and has an AICD in place. Based on the most recent echocardiogram the ejection fraction is normalized with an EF around 50-65% without any significant valvular abnormalities 7 coronary artery disease 8 hypertension 9 hyperlipidemia 10 depression 11 previous history of respiratory failure requiring intubation mechanical ventilation 12 bipolar disorder 13 chronic renal failure with stage III chronic kidney disease. Plan Will need sputum Gram stain and culture. We'll cover the patient with a combination of Rocephin and Zithromax. Continue DuoNeb neb treatments on the clock. IV Solu Medrol 60 g every 6 hours. Continue daily Lasix dose for any grams by mouth daily. The results of the echo cardiac exam was noted. Rest of the outpatient medication be continued. Monitor blood sugar and use insulin drip if needed. We'll continue to follow and make further recommendations based on his progress. Chest x-ray was reviewed. There is a concern for a COPD exacerbation and periventricular bronchitis rather than pneumonia.
--- NOTE | 2018-04-10 15:33 | P.PN ---
Subjective Progress Note Date: 04/10/18 Progress note being dictated for Dr. Ayala. Interval history: This is a 57-year-old gentleman admitted with acute CHF exacerbation,COPD exacerbation with purulent tracheobronchitis and multiple other medical issues. Maintained on Zithromax, Rocephin, nebulized bronchodilators, systemic steroids. Complains of greenish yellowish sputum production, sputum culture pending. Maintained on BiPAP during the night, currently maintaining O2 sats of low 90s on 4 L nasal cannula. Afebrile. Echo reporting preserved LV function, EF 50-55%. Telemetry sinus rhythm. Diuresed initially with Lasix IV push ,Worsening renal function, creatinine 2. Lasix converted to oral. Objective - Vital Signs Vital signs: Vital Signs Temp 97.9 F 04/10/18 12:00 Pulse 82 04/10/18 12:00 Resp 16 04/10/18 12:00 BP 115/73 04/10/18 12:00 Pulse Ox 91 L 04/10/18 12:00 Intake & Output 04/09/18 04/10/18 04/10/18 18:59 06:59 18:59 Intake Total 10 240 Output Total 300 0 Balance -290 240 Weight 130.181 kg 130.181 kg 130.181 kg Intake: IV 10 0.9 10 Oral 240 Output: Urine 300 0 Other: Voiding Method Urinal - Exam PHYSICAL EXAM: VITAL SIGNS: As above GENERAL: Sitting up in bed, no acute distress, sleepy, arouses easily HEENT: Conjunctivae normal. eyes normal. Oral mucosa moist. NECK: No JVD. No thyroid enlargement. No LNs CARDIOVASCULAR: S1, S2 muffled. No murmur RESPIRATION: Breath sounds diminished in the bases. Scattered rhonchi with expiratory wheezing, no crackles. ABDOMEN: Soft, nontender . No guarding. no masses palpable.Bowel sounds heard. LEGS: No significant edema. no swelling PSYCHIATRY: Alert and oriented -3, mood and affect normal. NERVOUS SYSTEM: Cranial N 2-12 grossly normal. Moves all 4 limbs. Diffuse weakness No focal deficits. Skin: no ulcer no rash Joints: No active swelling. No inflammation. Lymphatic system. No LN neck axilla or groin. - Labs CBC & Chem 7: 04/10/18 06:20 04/10/18 06:20 Labs: Abnormal Lab Results - Last 24 Hours (Table) 04/09/18 04/09/18 04/09/18 Range/Units 16:42 16:42 16:42 RBC 6.24 H (4.30-5.90) m/uL Hct 57.4 H (39.0-53.0) % MCHC 30.5 L (31.0-37.0) g/dL RDW 16.5 H (11.5-15.5) % Plt Count 83 L (150-450) k/uL Lymphocytes # (1.0-4.8) k/uL Monocytes # (Manual) 1.02 H (0-1.0) k/uL INR (<1.2) D-Dimer (<0.60) mg/L FEU Carbon Dioxide 32 H (22-30) mmol/L BUN 34 H (9-20) mg/dL Creatinine 1.40 H (0.66-1.25) mg/dL Glucose 183 H (74-99) mg/dL POC Glucose (mg/dL) (75-99) mg/dL Hemoglobin A1c (4.0-6.0) % Total Creatine Kinase 47 L (55-170) U/L Troponin I 0.063 H* (0.000-0.034) ng/mL 04/09/18 04/09/18 04/09/18 Range/Units 16:42 16:42 20:47 RBC (4.30-5.90) m/uL Hct (39.0-53.0) % MCHC (31.0-37.0) g/dL RDW (11.5-15.5) % Plt Count (150-450) k/uL Lymphocytes # (1.0-4.8) k/uL Monocytes # (Manual) (0-1.0) k/uL INR 1.2 H (<1.2) D-Dimer (<0.60) mg/L FEU Carbon Dioxide (22-30) mmol/L BUN (9-20) mg/dL Creatinine (0.66-1.25) mg/dL Glucose (74-99) mg/dL POC Glucose (mg/dL) 152 H (75-99) mg/dL Hemoglobin A1c 6.6 H (4.0-6.0) % Total Creatine Kinase (55-170) U/L Troponin I (0.000-0.034) ng/mL 04/10/18 04/10/18 04/10/18 Range/Units 05:41 06:20 06:20 RBC 5.99 H (4.30-5.90) m/uL Hct 54.2 H (39.0-53.0) % MCHC 29.8 L (31.0-37.0) g/dL RDW 16.3 H (11.5-15.5) % Plt Count 100 L (150-450) k/uL Lymphocytes # 0.8 L (1.0-4.8) k/uL Monocytes # (Manual) (0-1.0) k/uL INR (<1.2) D-Dimer (<0.60) mg/L FEU Carbon Dioxide 32 H (22-30) mmol/L BUN 45 H (9-20) mg/dL Creatinine 2.00 H (0.66-1.25) mg/dL Glucose 162 H (74-99) mg/dL POC Glucose (mg/dL) 154 H (75-99) mg/dL Hemoglobin A1c (4.0-6.0) % Total Creatine Kinase (55-170) U/L Troponin I (0.000-0.034) ng/mL 04/10/18 04/10/18 Range/Units 09:04 11:38 RBC (4.30-5.90) m/uL Hct (39.0-53.0) % MCHC (31.0-37.0) g/dL RDW (11.5-15.5) % Plt Count (150-450) k/uL Lymphocytes # (1.0-4.8) k/uL Monocytes # (Manual) (0-1.0) k/uL INR (<1.2) D-Dimer 0.62 H (<0.60) mg/L FEU Carbon Dioxide (22-30) mmol/L BUN (9-20) mg/dL Creatinine (0.66-1.25) mg/dL Glucose (74-99) mg/dL POC Glucose (mg/dL) 149 H (75-99) mg/dL Hemoglobin A1c (4.0-6.0) % Total Creatine Kinase (55-170) U/L Troponin I (0.000-0.034) ng/mL Assessment and Plan Assessment: 1. Shortness of breath, multifactorial with acute CHF exacerbation as well as acute COPD exacerbation 2. Troponin 0.063, acute non-STEMI ruled out as per cardiology and attributed to cardiomyopathy ,oxygen supply and demand mismatch. 3. Acute on chronic renal failure, stage III 4. CAD,HTN, Hyperlipidemia. 5. Diabetes mellitus type 2 6. Chronic hypoxic respiratory failure 7. Chronic sleep apnea 8. Severe ischemic cardiomyopathy, AICD, EF 40-45% with acute on chronic systolic dysfunction. Current echo reporting EF 50-55%. 9. Bipolar 10. Ongoing nicotine dependence 11. No code, no CPR, no vent Plan: Continue on current medication regime ,monitoring and symptomatic treatment. Maintain nebulized bronchodilators, steroids, antibiotics, diuretics. Close monitoring of renal function with repeat labs ordered for a.m. Lasix has been converted to oral; Coreg and lisinopril continued as per cardiology. Given patient's renal failure, Lovenox discontinued and changed over to heparin subcu. smoking cessation readdressed. The impression and plan of care has been dictated as directed. : I performed a history and examination of this patient, discussed the same with the dictator. I agree with the dictator's note ,documented as a scribe. Any additional findings or plans will be noted.
[2018-04-10] MEDS: cefTRIAXone IN SWFI 1,000 MG/10 ML SYRINGE IVP SCH (15:44)
[2018-04-10] MEDS: AZITHROMYCIN 500 MG TAB PO SCH (15:44)
[2018-04-10 16:15] LABS: Glucose,Whole Blood 236 mg/dL (75-99)
[2018-04-10 21:00] LABS: Glucose,Whole Blood 157 mg/dL (75-99)
[2018-04-10] MEDS: PRAVASTATIN SODIUM 40 MG TAB PO SCH (21:48)
[2018-04-10] MEDS: traZODone HCL 100 MG TAB PO SCH (21:48)
[2018-04-10] MEDS: QUEtiapine 200 MG TAB PO SCH (21:49)
[2018-04-11 05:42] LABS: Anisocytosis Slight; Basophils % (A) 0 %; Eosinophils % (A) 0 %; HCT 54.4 % (39.0-53.0); HGB 16.3 gm/dL (13.0-17.5); Hypochromasia Marked; Lymphocytes # (A) 0.9 k/uL (1.0-4.8); Lymphocytes % (A) 9 %; MCH 27.4 pg (25.0-35.0); MCHC 29.9 g/dL (31.0-37.0); MCV 91.5 fL (80.0-100.0); Mean Platelet Volume 9.9; Monocytes # (A) 0.5 k/uL (0-1.0); Monocytes % (A) 5 %; Neutrophils # (A) 8.5 k/uL (1.3-7.7); Neutrophils % (A) 84 %; Platelet Count 101 k/uL (150-450); RBC 5.95 m/uL (4.30-5.90); RDW 16.2 % (11.5-15.5); WBC 10.1 k/uL (3.8-10.6)
[2018-04-11 05:44] LABS: Calcium 9.1 mg/dL (8.4-10.2); Potassium 5.1 mmol/L (3.5-5.1)
[2018-04-11 05:47] LABS: Glucose,Whole Blood 175 mg/dL (75-99)
[2018-04-11] MEDS: methylPREDNISolone SOD SUCCI 125 MG/2 ML VIAL IV SCH ×4 (06:24→23:02)
[2018-04-11] MEDS: CARVEDILOL 12.5 MG TAB PO SCH ×2 (06:25→17:02)
[2018-04-11] MEDS: INSULIN ASPART 100 UNIT/ML 1 ML 10 ML VIAL SQ SCH ×4 (06:25→21:15)
[2018-04-11] MEDS: SYMBICORT 80-4.5 MCG INHALER INHALATION SCH ×2 (07:35→19:24)
[2018-04-11] MEDS: IPRATROPIUM-ALBUTEROL 3 ML NEB INHALATION SCH ×4 (07:35→19:24)
[2018-04-11] MEDS: ESCITALOPRAM 20 MG TAB PO SCH (08:14)
[2018-04-11] MEDS: HEPARIN SODIUM,PORCINE 5,000 UNIT/ML 1 ML VIAL SQ SCH ×3 (08:14→23:02)
[2018-04-11] MEDS: ALLOPURINOL 100 MG TAB PO SCH (08:14)
[2018-04-11] MEDS: amLODIPine 10 MG TAB PO SCH (08:14)
[2018-04-11] MEDS: AZITHROMYCIN 500 MG TAB PO SCH (08:14)
[2018-04-11] MEDS: FUROSEMIDE 40 MG TAB PO SCH (08:14)
[2018-04-11] MEDS: PREGABALIN 75 MG CAP PO SCH ×2 (08:14→20:19)
[2018-04-11] MEDS: GABAPENTIN 300 MG CAP PO SCH (08:14)
[2018-04-11] MEDS: cefTRIAXone IN SWFI 1,000 MG/10 ML SYRINGE IVP SCH (08:15)
[2018-04-11] MEDS: hydrALAZINE HCL 50 MG TAB PO SCH ×3 (08:15→20:16)
[2018-04-11] MEDS: cloNIDine HCL 0.2 MG TAB PO SCH (08:15)
[2018-04-11] MEDS: HYDROcodone/APAP 5-325MG 1 EACH TAB PO PRN ×2 (08:17→21:31)
[2018-04-11 12:09] LABS: Glucose,Whole Blood 194 mg/dL (75-99)
--- NOTE | 2018-04-11 12:20 | P.PN ---
Subjective Progress Note Date: 04/11/18 Principal diagnosis: Acute COPD exacerbation with purulent tracheobronchitis This 57-year-old -[place] male presenting with increased cough, thick purulent sputum production, and increased bronchospasm and wheezing for the past 1 week. The patient is known to me from previous hospitalizations. He has multiple medical problems and comorbidities. He is known to have COPD and addition to coronary artery disease, chronic renal failure with stage III chronic kidney disease, congestion heart failure with a previous ejection fraction of 40-45% and the patient has an AICD in place, he has also history of hypertension, hyperlipidemia, depression, bipolar disorder and diabetic peripheral neuropathy and diabetes mellitus. He has also history of obstructive sleep apnea. His current white cell count is at 8.1. His renal function isn't. The patient's creatinine is at 2.0. Repeat echocardiogram was done during this current admission showed improvement in LV function with an ejection fraction of 50-55% and the right ventricular systolic pressure was measured to be 24 and the patient's cardiac rhythm is sinus mechanism. The chest x-ray shows increased interstitial markings bilaterally consistent with pulmonary vascular congestion. Superimposed pneumonia cannot be completely excluded. No significant signs of fluid overload. No worsening in lower extremity edema. No signs of any fluid gain. He has been exposed to children who have had respiratory tract infection at home. No altered mentation. No pleurisy. No hemoptysis. The amount of mucus is been coughed out is copious and purulent. On 04/11/2018 patient seen in follow-up. Resting comfortably in bed, in no acute distress, a bit lethargic, but easily arousable. Pulse ox on 4 L per nasal cannula is 88-89%, patient is wearing BiPAP at bedtime. Afebrile, hemodynamically stable, remains on empiric antibiotics in the form of Zithromax , and Rocephin, seating oral diuretics, nebulized bronchodilators, systemic steroids. Lung sounds reveal diminished breath sounds with scattered rhonchi, and wheezes Objective - Vital Signs Vital signs: Vital Signs Temp 97.3 F L 04/11/18 07:41 Pulse 80 04/11/18 11:53 Resp 18 04/11/18 07:41 BP 134/86 04/11/18 07:41 Pulse Ox 88 L 04/11/18 07:41 Intake & Output 04/10/18 04/11/18 04/11/18 18:59 06:59 18:59 Intake Total 240 20 240 Output Total 0 400 Balance 240 -380 240 Weight 130.181 kg 118.7 kg Intake: IV 20 0.9 20 Oral 240 240 Output: Urine 0 400 Other: Voiding Method Urinal - Exam Gen. appearance, comfortable awake nonacute distress. Head exam was generally normal. There was no scleral icterus or corneal arcus. Mucous membranes were moist. Neck was supple and without jugular venous distension, thyromegaly, or carotid bruits. Carotids were easily palpable bilaterally. There was no adenopathy. Lungs sounds are diminished bilaterally along with scattered rhonchi and scattered expiratory wheezes without the lung [place] bilaterally. Cardiac exam revealed the PMI to be normally situated and sized. The rhythm was regular and no extrasystoles were noted during several minutes of auscultation. The first and second heart sounds were normal and physiologic splitting of the second heart sound was noted. There were no murmurs, rubs, clicks, or gallops. Abdominal exam revealed normal bowel sounds. The abdomen was soft, non-tender, and without masses, organomegaly, or appreciable enlargement of the abdominal aorta. Examination of the extremities revealed easily palpable radial, femoral and pedal pulses. There was no cyanosis, clubbing or edema. Examination of the skin revealed no evidence of significant rashes, suspicious appearing nevi or other concerning lesions. Neurologically the patient is awake and alert and there is no focal neurological deficit. - Labs CBC & Chem 7: 04/11/18 05:22 04/11/18 05:22 Labs: Abnormal Lab Results - Last 24 Hours (Table) 04/09/18 04/10/18 04/10/18 Range/Units 16:42 16:13 20:58 RBC (4.30-5.90) m/uL Hct (39.0-53.0) % MCHC (31.0-37.0) g/dL RDW (11.5-15.5) % Plt Count (150-450) k/uL Neutrophils # (1.3-7.7) k/uL Lymphocytes # (1.0-4.8) k/uL Sodium (137-145) mmol/L BUN (9-20) mg/dL Creatinine (0.66-1.25) mg/dL Glucose (74-99) mg/dL POC Glucose (mg/dL) 236 H 157 H (75-99) mg/dL Hemoglobin A1c 6.6 H (4.0-6.0) % 04/11/18 04/11/18 04/11/18 Range/Units 05:22 05:22 05:46 RBC 5.95 H (4.30-5.90) m/uL Hct 54.4 H (39.0-53.0) % MCHC 29.9 L (31.0-37.0) g/dL RDW 16.2 H (11.5-15.5) % Plt Count 101 L (150-450) k/uL Neutrophils # 8.5 H (1.3-7.7) k/uL Lymphocytes # 0.9 L (1.0-4.8) k/uL Sodium 136 L (137-145) mmol/L BUN 73 H (9-20) mg/dL Creatinine 3.10 H (0.66-1.25) mg/dL Glucose 171 H (74-99) mg/dL POC Glucose (mg/dL) 175 H (75-99) mg/dL Hemoglobin A1c (4.0-6.0) % Microbiology - Last 24 Hours (Table) 04/10/18 18:25 Gram Stain - Preliminary Sputum Assessment and Plan Plan: Assessment: 1 acute COPD exacerbation with purulent tracheal bronchitis with production of copious amount of purulent respiratory secretions. Underlying pneumonia is currently completely excluded. 2 shortness of breath secondary to above 3 chronic hypoxic respiratory failurechronic hypercapnic respiratory failure secondary to COPD 4 diabetes mellitus 5 diabetic peripheral neuropathy 6 history of congestion heart failure with subsequent improvement in the left ventricular ejection fraction. The patient has had previous history of ischemic cardiomyopathy and has an AICD in place. Based on the most recent echocardiogram the ejection fraction is normalized with an EF around 50-65% without any significant valvular abnormalities 7 coronary artery disease 8 hypertension 9 hyperlipidemia 10 depression 11 previous history of respiratory failure requiring intubation mechanical ventilation 12 bipolar disorder 13 chronic renal failure with stage III chronic kidney disease. Plan: Continue current medical treatment, continue IV steroids, oral diuretics, empiric antibiotics, sputum culture is pending, no fever, no chills, she remains bronchospastic and congested, continue BiPAP support at night and as needed during the day. Continue to follow, we'll repeat a chest x-ray in the morning. Continue to follow I performed a history & physical examination of the patient and discussed their management with my nurse practitioner, Ysabel Macias. I reviewed the nurse practitioner's note and agree with the documented findings and plan of care. Lung sounds are positive for diffuse wheezes and rhonchi. The findings and the impression was discussed with the patient. I attest to the documentation by the nurse practitioner. Time with Patient: Less than 30
[2018-04-11 16:58] LABS: Glucose,Whole Blood 267 mg/dL (75-99)
--- NOTE | 2018-04-11 18:46 | P.PN ---
Subjective Progress Note Date: 04/11/18 Progress note being dictated for Dr. Ayala. Interval history: This is a 57-year-old gentleman admitted with acute CHF exacerbation,COPD exacerbation with purulent tracheobronchitis and multiple other medical issues. Maintained on Zithromax, Rocephin, nebulized bronchodilators, systemic steroids. Complains of greenish yellowish sputum production, sputum culture pending. Maintained on BiPAP during the night, currently maintaining O2 sats of low 90s on 4 L nasal cannula. Afebrile. Echo reporting preserved LV function, EF 50-55%. Telemetry sinus rhythm. Diuresed initially with Lasix IV push ,Worsening renal function, creatinine 2. Lasix converted to oral. 04/11/2018 BiPAP at bedside, wore last night. Continues on Rocephin, Zithromax , systemic steroids, nebulized bronchodilators, oral Lasix. Maintaining O2 sats of high 80s on 4 L nasal cannula. Sleepy, arousable. Renal function worsening , up to 3.1. Nephrology consulted. Afebrile, normal WBC. Objective - Vital Signs Vital signs: Vital Signs Temp 97.1 F L 04/11/18 12:00 Pulse 75 04/11/18 17:00 Resp 18 04/11/18 17:00 BP 118/72 04/11/18 17:00 Pulse Ox 90 L 04/11/18 17:00 Intake & Output 04/10/18 04/11/18 04/11/18 18:59 06:59 18:59 Intake Total 240 20 540 Output Total 0 400 Balance 240 -380 540 Weight 130.181 kg 118.7 kg Intake: IV 20 0.9 20 Oral 240 540 Output: Urine 0 400 Other: Voiding Method Urinal Urinal - Exam PHYSICAL EXAM: VITAL SIGNS: As above GENERAL: Sitting up in bed, no acute distress, sleepy, arouses easily HEENT: Conjunctivae normal. eyes normal. Oral mucosa moist. NECK: No JVD. No thyroid enlargement. No LNs CARDIOVASCULAR: S1, S2 muffled. No murmur RESPIRATION: Breath sounds diminished in the bases. Scattered rhonchi with expiratory wheezing, no crackles. ABDOMEN: Soft, nontender . No guarding. no masses palpable.Bowel sounds heard. LEGS: No significant edema. no swelling PSYCHIATRY: Alert and oriented -3, mood and affect normal. NERVOUS SYSTEM: Cranial N 2-12 grossly normal. Moves all 4 limbs. Diffuse weakness No focal deficits. - Labs CBC & Chem 7: 04/11/18 05:22 04/11/18 05:22 Labs: Abnormal Lab Results - Last 24 Hours (Table) 04/10/18 04/11/18 04/11/18 Range/Units 20:58 05:22 05:22 RBC 5.95 H (4.30-5.90) m/uL Hct 54.4 H (39.0-53.0) % MCHC 29.9 L (31.0-37.0) g/dL RDW 16.2 H (11.5-15.5) % Plt Count 101 L (150-450) k/uL Neutrophils # 8.5 H (1.3-7.7) k/uL Lymphocytes # 0.9 L (1.0-4.8) k/uL Sodium 136 L (137-145) mmol/L BUN 73 H (9-20) mg/dL Creatinine 3.10 H (0.66-1.25) mg/dL Glucose 171 H (74-99) mg/dL POC Glucose (mg/dL) 157 H (75-99) mg/dL 04/11/18 04/11/18 04/11/18 Range/Units 05:46 11:40 16:30 RBC (4.30-5.90) m/uL Hct (39.0-53.0) % MCHC (31.0-37.0) g/dL RDW (11.5-15.5) % Plt Count (150-450) k/uL Neutrophils # (1.3-7.7) k/uL Lymphocytes # (1.0-4.8) k/uL Sodium (137-145) mmol/L BUN (9-20) mg/dL Creatinine (0.66-1.25) mg/dL Glucose (74-99) mg/dL POC Glucose (mg/dL) 175 H 194 H 267 H (75-99) mg/dL Microbiology - Last 24 Hours (Table) 04/10/18 18:25 Gram Stain - Preliminary Sputum Assessment and Plan Assessment: 1. Shortness of breath, multifactorial with acute CHF exacerbation as well as acute COPD exacerbation 2. Troponin 0.063, acute non-STEMI ruled out as per cardiology and attributed to cardiomyopathy ,oxygen supply and demand mismatch. 3. Acute on chronic renal failure, stage III 4. CAD,HTN, Hyperlipidemia. 5. Diabetes mellitus type 2 6. Chronic hypoxic respiratory failure 7. Chronic sleep apnea 8. Severe ischemic cardiomyopathy, AICD, EF 40-45% with acute on chronic systolic dysfunction. Current echo reporting EF 50-55%. 9. Bipolar 10. Ongoing nicotine dependence 11. No code, no CPR, no vent Plan: Continue on current medication regime , and oral Lasix ,monitoring and symptomatic treatment. Nephrology consulted -worsening renal failure.Seroquel dose decreased and trazodone discontinued.Maintain nebulized bronchodilators, steroids, antibiotics, diuretics. Close monitoring of renal function with repeat labs ordered for a.m. smoking cessation readdressed. The impression and plan of care has been dictated as directed. : I performed a history and examination of this patient, discussed the same with the dictator. I agree with the dictator's note ,documented as a scribe. Any additional findings or plans will be noted.
[2018-04-11] MEDS: QUEtiapine 100 MG TAB PO SCH (20:16)
[2018-04-11] MEDS: PRAVASTATIN SODIUM 40 MG TAB PO SCH (20:16)
[2018-04-11 20:57] LABS: Glucose,Whole Blood 217 mg/dL (75-99)
[2018-04-12 03:46] LABS: Glucose,Whole Blood 187 mg/dL (75-99)
[2018-04-12 04:35] LABS: Anisocytosis Slight; Basophils % (A) 0 %; Calcium 9.1 mg/dL (8.4-10.2); Eosinophils % (A) 0 %; HGB 17.4 gm/dL (13.0-17.5); Hypochromasia Marked; Lymphocytes # (A) 0.9 k/uL (1.0-4.8); Lymphocytes % (A) 8 %; MCH 27.6 pg (25.0-35.0); MCHC 29.9 g/dL (31.0-37.0); MCV 92.1 fL (80.0-100.0); Mean Platelet Volume 9.8; Monocytes # (A) 0.5 k/uL (0-1.0); Monocytes % (A) 4 %; Neutrophils # (A) 9.7 k/uL (1.3-7.7); Neutrophils % (A) 85 %; Platelet Count 111 k/uL (150-450); RDW 16.4 % (11.5-15.5); WBC 11.4 k/uL (3.8-10.6)
[2018-04-12 04:43] LABS: Potassium 5.6 mmol/L (3.5-5.1)
[2018-04-12 04:46] LABS: Magnesium 2.7 mg/dL (1.6-2.3)
[2018-04-12] MEDS ORDERED: DEXTROSE 50%-WATER 50 ML SYRINGE IVP STA (05:01)
[2018-04-12] MEDS ORDERED: INSULIN REGULAR 100 UNIT/ML VIAL IV ONE (05:02)
[2018-04-12 05:56] LABS: Glucose,Whole Blood 222 mg/dL (75-99)
[2018-04-12] MEDS: INSULIN ASPART 100 UNIT/ML 1 ML 10 ML VIAL SQ SCH ×4 (06:28→21:32)
[2018-04-12] MEDS: methylPREDNISolone SOD SUCCI 125 MG/2 ML VIAL IV SCH ×4 (06:28→23:23)
[2018-04-12] MEDS: CARVEDILOL 12.5 MG TAB PO SCH ×2 (07:04→16:05)
[2018-04-12] MEDS: SYMBICORT 80-4.5 MCG INHALER INHALATION SCH ×2 (08:21→19:49)
[2018-04-12] MEDS: IPRATROPIUM-ALBUTEROL 3 ML NEB INHALATION SCH ×4 (08:21→19:49)
[2018-04-12] MEDS: amLODIPine 10 MG TAB PO SCH (08:52)
[2018-04-12] MEDS: cefTRIAXone IN SWFI 1,000 MG/10 ML SYRINGE IVP SCH (08:52)
[2018-04-12] MEDS: AZITHROMYCIN 500 MG TAB PO SCH (08:52)
[2018-04-12] MEDS: hydrALAZINE HCL 50 MG TAB PO SCH ×3 (08:53→21:11)
[2018-04-12] MEDS: ESCITALOPRAM 20 MG TAB PO SCH (08:53)
[2018-04-12] MEDS: ALLOPURINOL 100 MG TAB PO SCH (08:54)
[2018-04-12] MEDS: FUROSEMIDE 40 MG TAB PO SCH (08:54)
[2018-04-12] MEDS: GABAPENTIN 300 MG CAP PO SCH (08:55)
[2018-04-12] MEDS: HEPARIN SODIUM,PORCINE 5,000 UNIT/ML 1 ML VIAL SQ SCH ×3 (08:55→23:23)
[2018-04-12] MEDS: PREGABALIN 75 MG CAP PO SCH ×2 (09:03→21:10)
--- NOTE | 2018-04-12 11:18 | XR ---
EXAMINATION TYPE: XR chest 2V DATE OF EXAM: 04/12/2018 COMPARISON: 04/09/2018 INDICATION: Short of breath, COPD TECHNIQUE: Frontal and lateral views of the chest are obtained. FINDINGS: The heart size is borderline enlarged. Pacemaker overlies left chest.. The pulmonary vasculature is normal. The lungs are clear. Lower lobe infiltrates appear resolved. IMPRESSION: 1. Resolution of previous bibasilar infiltrates. 2. Stable cardiomegaly
[2018-04-12 11:45] LABS: Glucose,Whole Blood 181 mg/dL (75-99)
--- NOTE | 2018-04-12 12:09 | P.PN ---
Subjective Progress Note Date: 04/12/18 Principal diagnosis: Acute COPD exacerbation with purulent tracheobronchitis This 57-year-old -[place] male presenting with increased cough, thick purulent sputum production, and increased bronchospasm and wheezing for the past 1 week. The patient is known to me from previous hospitalizations. He has multiple medical problems and comorbidities. He is known to have COPD and addition to coronary artery disease, chronic renal failure with stage III chronic kidney disease, congestion heart failure with a previous ejection fraction of 40-45% and the patient has an AICD in place, he has also history of hypertension, hyperlipidemia, depression, bipolar disorder and diabetic peripheral neuropathy and diabetes mellitus. He has also history of obstructive sleep apnea. His current white cell count is at 8.1. His renal function isn't. The patient's creatinine is at 2.0. Repeat echocardiogram was done during this current admission showed improvement in LV function with an ejection fraction of 50-55% and the right ventricular systolic pressure was measured to be 24 and the patient's cardiac rhythm is sinus mechanism. The chest x-ray shows increased interstitial markings bilaterally consistent with pulmonary vascular congestion. Superimposed pneumonia cannot be completely excluded. No significant signs of fluid overload. No worsening in lower extremity edema. No signs of any fluid gain. He has been exposed to children who have had respiratory tract infection at home. No altered mentation. No pleurisy. No hemoptysis. The amount of mucus is been coughed out is copious and purulent. On 04/11/2018 patient seen in follow-up. Resting comfortably in bed, in no acute distress, a bit lethargic, but easily arousable. Pulse ox on 4 L per nasal cannula is 88-89%, patient is wearing BiPAP at bedtime. Afebrile, hemodynamically stable, remains on empiric antibiotics in the form of Zithromax , and Rocephin, seating oral diuretics, nebulized bronchodilators, systemic steroids. Lung sounds reveal diminished breath sounds with scattered rhonchi, and wheezes On 04/12/2018 patient seen again in follow-up on [facility] care unit. Resting in bed, in no acute distress, is on BiPAP support at night, on nasal cannula during the day, currently at 4 L. He states his breathing has not much improved , although physical exam reveals last bronchospastic lung sounds, and scattered rhonchi. Afebrile, no fever or chills, his chest x-ray has been reviewed, is resolution of the previous bibasilar infiltrates, and stable cardiomegaly. Patient remains on oral diuretics in the form of Lasix 40 mg once daily, and on today's labs there is evidence of worsening renal failure, and BUN is 98, creatinine is 4.61, nephrology has been consulted. WBC is 11.4, hemoglobin is 17.4. And sputum culture is pending. Objective - Vital Signs Vital signs: Vital Signs Temp 97.4 F L 04/12/18 04:00 Pulse 66 04/12/18 08:38 Resp 18 04/12/18 04:00 BP 159/75 04/12/18 04:00 Pulse Ox 96 04/12/18 04:00 Intake & Output 04/11/18 04/12/18 04/12/18 18:59 06:59 18:59 Intake Total 540 200 240 Output Total 320 Balance 540 -120 240 Weight 120.7 kg Intake: Oral 540 200 240 Output: Urine 320 Other: Voiding Method Urinal Urinal - Exam Gen. appearance, comfortable awake nonacute distress. Flat affect noted Head exam was generally normal. There was no scleral icterus or corneal arcus. Mucous membranes were moist. Neck was supple and without jugular venous distension, thyromegaly, or carotid bruits. Carotids were easily palpable bilaterally. There was no adenopathy. Lungs sounds are diminished bilaterally along with scattered rhonchi and scattered expiratory wheezes without the lung [place] bilaterally. Overall less bronchospastic compared to yesterday's exam Cardiac exam revealed the PMI to be normally situated and sized. The rhythm was regular and no extrasystoles were noted during several minutes of auscultation. The first and second heart sounds were normal and physiologic splitting of the second heart sound was noted. There were no murmurs, rubs, clicks, or gallops. Abdominal exam revealed normal bowel sounds. The abdomen was soft, non-tender, and without masses, organomegaly, or appreciable enlargement of the abdominal aorta. Examination of the extremities revealed easily palpable radial, femoral and pedal pulses. There was no cyanosis, clubbing or edema. Examination of the skin revealed no evidence of significant rashes, suspicious appearing nevi or other concerning lesions. Neurologically the patient is awake and alert and there is no focal neurological deficit. - Labs CBC & Chem 7: 04/12/18 04:15 04/12/18 09:23 Labs: Abnormal Lab Results - Last 24 Hours (Table) 04/11/18 04/11/18 04/11/18 Range/Units 11:40 16:30 20:56 WBC (3.8-10.6) k/uL RBC (4.30-5.90) m/uL Hct (39.0-53.0) % MCHC (31.0-37.0) g/dL RDW (11.5-15.5) % Plt Count (150-450) k/uL Neutrophils # (1.3-7.7) k/uL Lymphocytes # (1.0-4.8) k/uL Potassium (3.5-5.1) mmol/L BUN (9-20) mg/dL Creatinine (0.66-1.25) mg/dL Glucose (74-99) mg/dL POC Glucose (mg/dL) 194 H 267 H 217 H (75-99) mg/dL Magnesium (1.6-2.3) mg/dL 04/12/18 04/12/18 04/12/18 Range/Units 03:44 04:15 04:15 WBC 11.4 H (3.8-10.6) k/uL RBC 6.30 H (4.30-5.90) m/uL Hct 58.0 H (39.0-53.0) % MCHC 29.9 L (31.0-37.0) g/dL RDW 16.4 H (11.5-15.5) % Plt Count 111 L (150-450) k/uL Neutrophils # 9.7 H (1.3-7.7) k/uL Lymphocytes # 0.9 L (1.0-4.8) k/uL Potassium 5.6 H (3.5-5.1) mmol/L BUN 98 H* (9-20) mg/dL Creatinine 4.61 H (0.66-1.25) mg/dL Glucose 192 H (74-99) mg/dL POC Glucose (mg/dL) 187 H (75-99) mg/dL Magnesium 2.7 H (1.6-2.3) mg/dL 04/12/18 04/12/18 Range/Units 05:55 11:44 WBC (3.8-10.6) k/uL RBC (4.30-5.90) m/uL Hct (39.0-53.0) % MCHC (31.0-37.0) g/dL RDW (11.5-15.5) % Plt Count (150-450) k/uL Neutrophils # (1.3-7.7) k/uL Lymphocytes # (1.0-4.8) k/uL Potassium (3.5-5.1) mmol/L BUN (9-20) mg/dL Creatinine (0.66-1.25) mg/dL Glucose (74-99) mg/dL POC Glucose (mg/dL) 222 H 181 H (75-99) mg/dL Magnesium (1.6-2.3) mg/dL Assessment and Plan Plan: Assessment: 1 acute COPD exacerbation with purulent tracheal bronchitis with production of copious amount of purulent respiratory secretions. Underlying pneumonia is currently completely excluded. 2 shortness of breath secondary to above 3 chronic hypoxic respiratory failurechronic hypercapnic respiratory failure secondary to COPD 4 diabetes mellitus 5 diabetic peripheral neuropathy 6 history of congestion heart failure with subsequent improvement in the left ventricular ejection fraction. The patient has had previous history of ischemic cardiomyopathy and has an AICD in place. Based on the most recent echocardiogram the ejection fraction is normalized with an EF around 50-65% without any significant valvular abnormalities 7 coronary artery disease 8 hypertension 9 hyperlipidemia 10 depression 11 previous history of respiratory failure requiring intubation mechanical ventilation 12 bipolar disorder 13 chronic renal failure with stage III chronic kidney disease. Plan: Continue current plan of treatment, continue antibiotics, nebulized bronchodilators, IV steroids. Renal profile was noted to be worsening, and nephrology has been consulted, patient continues on oral diuretics, chest x-ray is improving, there has been resolution of bilateral lower infiltrates. Increase activity, the patient set up at the bedside, encourage pulmonary toileting. I performed a history & physical examination of the patient and discussed their management with my nurse practitioner, Ysabel Macias. I reviewed the nurse practitioner's note and agree with the documented findings and plan of care. Lung sounds are positive for diffuse wheezes and rhonchi. The findings and the impression was discussed with the patient. I attest to the documentation by the nurse practitioner. Time with Patient: Less than 30
--- NOTE | 2018-04-12 12:16 | P.DS ---
Providers Date of admission: 04/09/18 18:03 Attending physician: Kerri Vo Consults: 04/09/18 18:03 Consult Physician Routine Consulting Provider: Sylvia Gan Consult Reason/Comments: known Do you want consulting provider notified?: Yes Consult Physician Routine Consulting Provider: Alma Holland Consult Reason/Comments: chf Do you want consulting provider notified?: Yes 04/11/18 15:08 Consult Physician Routine Consulting Provider: Jose Roman Consult Reason/Comments: renal failure Do you want consulting provider notified?: Yes Primary care physician: Sylvia Gan [facility] Course: This is a 57-year-old gentleman admitted with acute CHF exacerbation,COPD exacerbation with purulent tracheobronchitis and multiple other medical issues. Maintained on Zithromax, Rocephin, nebulized bronchodilators, systemic steroids. Complains of greenish yellowish sputum production, sputum culture pending. Maintained on BiPAP during the night, currently maintaining O2 sats of low 90s on 4 L nasal cannula. Afebrile. Echo reporting preserved LV function, EF 50-55%. Telemetry sinus rhythm. Diuresed initially with Lasix IV push ,Worsening renal function, creatinine 2. Lasix converted to oral. 04/11/2018 BiPAP at bedside, wore last night. Continues on Rocephin, Zithromax , systemic steroids, nebulized bronchodilators, oral Lasix. Maintaining O2 sats of high 80s on 4 L nasal cannula. Sleepy, arousable. Renal function worsening , up to 3.1. Nephrology consulted. Afebrile, normal WBC. 04/12/2018 Patient is clinically doing well on room air at rest. Patient is cleared for discharge patient has fairly good air entry bilateral lung [place] patient will be discharged today. Patient had hyperkalemia because of which Lasix is being this can you patient doesn't have any systolic dysfunction patient is not diabetic PHYSICAL EXAMINATION: GENERAL: The patient is alert and oriented x3, not in any acute distress. Well developed, well nourished. HEENT: Pupils are round and equally reacting to light. EOMI. No scleral icterus. No conjunctival pallor. Normocephalic, atraumatic. No pharyngeal erythema. No thyromegaly. CARDIOVASCULAR: S1 and S2 present. No murmurs, rubs, or gallops. PULMONARY: Chest is clear to auscultation, no wheezing or crackles. ABDOMEN: Soft, nontender, nondistended, normoactive bowel sounds. No palpable organomegaly. MUSCULOSKELETAL: No joint swelling or deformity. EXTREMITIES: No cyanosis, clubbing, or pedal edema. NEUROLOGICAL: Gross neurological examination did not reveal any focal deficits. SKIN: No rashes. Assessment and Plan Assessment: 1. Shortness of breath, multifactorial with acute CHF exacerbation as well as acute COPD exacerbation COPD improved patient is euvolemic 2. Troponin 0.063, acute non-STEMI ruled out as per cardiology and attributed to cardiomyopathy ,oxygen supply and demand mismatch. 3. Acute on chronic renal failure, stage III 4. CAD,HTN, Hyperlipidemia. 5. Diabetes mellitus type 2 6. Chronic hypoxic respiratory failure 7. Chronic sleep apnea 8. History of ischemic cardiomyopathy, AICD, EF 40-45% with acute on chronic systolic dysfunction. Current echo reporting EF 50-55%. 9. Bipolar 10. Ongoing nicotine dependence 11. No code, no CPR, no vent Patient Condition at Discharge: Serious Plan - Discharge Summary Discharge Rx Participant: No New Discharge Prescriptions: New predniSONE 10 mg PO DAILY #30 tab Cefuroxime Axetil [Ceftin] 500 mg PO BID #14 tab Continue traZODone HCL [Desyrel] 200 mg PO HS amLODIPine [Norvasc] 10 mg PO DAILY Allopurinol [Zyloprim] 100 mg PO DAILY QUEtiapine [SEROquel] 200 mg PO HS Pregabalin [Lyrica] 75 mg PO BID Fluticasone/Vilanterol [Breo Ellipta 100-25 Mcg Inhaler] 1 puff INHALATION RT -DAILY Albuterol Inhaler [Ventolin Hfa Inhaler] 2 puff INHALATION RT-QID PRN PRN Reason: Shortness Of Breath Furosemide [Lasix] 40 mg PO DAILY #30 tab Pravastatin Sodium [Pravachol] 40 mg PO HS Carvedilol [Coreg*] 12.5 mg PO BID-W/MEALS #30 tab hydrALAZINE HCL [Apresoline] 50 mg PO TID #60 tab Gabapentin [Neurontin] 300 mg PO DAILY Buprenorphine HCl/Naloxone HCl [Zubsolv 5.7-1.4 mg Tablet Sl] 1 tab SUBLINGUAL BID PRN PRN Reason: WITHDRAWAL HYDROcodone/APAP 5-325MG [[place] 5-325] 1 tab PO TID PRN PRN Reason: Pain Escitalopram [Lexapro] 20 mg PO DAILY Discontinued cloNIDine HCL [Catapres] 0.2 mg PO BID #60 tab Lisinopril [Prinivil] 20 mg PO DAILY Discharge Medication List amLODIPine [Norvasc] 10 mg PO DAILY 01/05/16 [History] traZODone HCL [Desyrel] 200 mg PO HS 01/05/16 [History] Allopurinol [Zyloprim] 100 mg PO DAILY 05/21/17 [History] QUEtiapine [SEROquel] 200 mg PO HS 05/21/17 [History] Albuterol Inhaler [Ventolin Hfa Inhaler] 2 puff INHALATION RT-QID PRN 11/25/17 [ History] Fluticasone/Vilanterol [Breo Ellipta 100-25 Mcg Inhaler] 1 puff INHALATION RT- DAILY 11/25/17 [History] Pregabalin [Lyrica] 75 mg PO BID 11/25/17 [History] Furosemide [Lasix] 40 mg PO DAILY #30 tab 12/11/17 [Rx] Pravastatin Sodium [Pravachol] 40 mg PO HS 01/14/18 [History] Carvedilol [Coreg*] 12.5 mg PO BID-W/MEALS #30 tab 01/20/18 [Rx] hydrALAZINE HCL [Apresoline] 50 mg PO TID #60 tab 01/20/18 [Rx] Buprenorphine HCl/Naloxone HCl [Zubsolv 5.7-1.4 mg Tablet Sl] 1 tab SUBLINGUAL BID PRN 04/09/18 [History] Escitalopram [Lexapro] 20 mg PO DAILY 04/09/18 [History] Gabapentin [Neurontin] 300 mg PO DAILY 04/09/18 [History] HYDROcodone/APAP 5-325MG [[place] 5-325] 1 tab PO TID PRN 04/09/18 [History] Cefuroxime Axetil [Ceftin] 500 mg PO BID #14 tab 04/12/18 [Rx] predniSONE 10 mg PO DAILY #30 tab 04/12/18 [Rx] Follow up Appointment(s)/Referral(s): Sylvia Gan MD [Primary Care Provider] - 04/26/18 10:15 am (Sunday) Patient Instructions/Handouts: COPD (Chronic Obstructive Pulmonary Disease) (DC ), Chronic Lung Disease and Infection Prevention (DC) Discharge Disposition: HOME WITH HOME HEALTH SERVICES
--- NOTE | 2018-04-12 12:21 | US ---
EXAMINATION TYPE: US kidneys/renal and bladder DATE OF EXAM: 04/12/2018 COMPARISON: 04/04/2017 CLINICAL HISTORY: RF. Renal failure EXAM MEASUREMENTS: Right Kidney: 10.1 x 4.9 x 5.0 cm Left Kidney: 9.8 x 5.7 x 4.6 cm Right Kidney: Appears echogenic. Two lateral cystic appearing lesions. 1- Upper lateral = 1.1 x 1.6 x 1.0 cm 2- Lower lateral = 1.3 x 1.0 x 1.2 cm Left Kidney: Possible isoechoic lateral lesion vs prominent lobularity - 2.1 x 1.9 x 1.8 cm Bladder: Distended. Prominent prostate identified extending into bladder with probable lesion - 2.7 x 2.6 x 2.6 cm Bilateral Jets seen IMPRESSION: 1. Right renal cysts. 2. Prostate appears prominent in incompletely evaluated. Prostate ultrasound can be performed if kimi tional evaluation would be of benefit. 3. Possible isoechoic lesion along the lateral left kidney. Additional evaluation with contrast CT is recommended.
--- NOTE | 2018-04-12 12:36 | P.PN ---
Subjective This is a 57-year-old gentleman admitted with acute CHF exacerbation,COPD exacerbation with purulent tracheobronchitis and multiple other medical issues. Maintained on Zithromax, Rocephin, nebulized bronchodilators, systemic steroids. Complains of greenish yellowish sputum production, sputum culture pending. Maintained on BiPAP during the night, currently maintaining O2 sats of low 90s on 4 L nasal cannula. Afebrile. Echo reporting preserved LV function, EF 50-55%. Telemetry sinus rhythm. Diuresed initially with Lasix IV push ,Worsening renal function, creatinine 2. Lasix converted to oral. 04/11/2018 BiPAP at bedside, wore last night. Continues on Rocephin, Zithromax , systemic steroids, nebulized bronchodilators, oral Lasix. Maintaining O2 sats of high 80s on 4 L nasal cannula. Sleepy, arousable. Renal function worsening , up to 3.1. Nephrology consulted. Afebrile, normal WBC. 04/12/2018 Patient's creatinine has worsened because of which nephrology was consulted today patient was switched to oral Lasix. Objective - Vital Signs Vital signs: Vital Signs Temp 97.4 F L 04/12/18 04:00 Pulse 66 04/12/18 08:38 Resp 18 04/12/18 04:00 BP 159/75 04/12/18 04:00 Pulse Ox 96 04/12/18 04:00 Intake & Output 04/11/18 04/12/18 04/12/18 18:59 06:59 18:59 Intake Total 540 200 240 Output Total 320 Balance 540 -120 240 Weight 120.7 kg Intake: Oral 540 200 240 Output: Urine 320 Other: Voiding Method Urinal Urinal - Exam PHYSICAL EXAM: VITAL SIGNS: As above GENERAL: Sitting up in bed, no acute distress, sleepy, arouses easily HEENT: Conjunctivae normal. eyes normal. Oral mucosa moist. NECK: No JVD. No thyroid enlargement. No LNs CARDIOVASCULAR: S1, S2 muffled. No murmur RESPIRATION: Breath sounds diminished in the bases. Scattered rhonchi with expiratory wheezing, no crackles. ABDOMEN: Soft, nontender . No guarding. no masses palpable.Bowel sounds heard. LEGS: No significant edema. no swelling PSYCHIATRY: Alert and oriented -3, mood and affect normal. NERVOUS SYSTEM: Cranial N 2-12 grossly normal. Moves all 4 limbs. Diffuse weakness No focal deficits. - Labs CBC & Chem 7: 04/12/18 04:15 04/12/18 09:23 Labs: Abnormal Lab Results - Last 24 Hours (Table) 04/11/18 04/11/18 04/12/18 Range/Units 16:30 20:56 03:44 WBC (3.8-10.6) k/uL RBC (4.30-5.90) m/uL Hct (39.0-53.0) % MCHC (31.0-37.0) g/dL RDW (11.5-15.5) % Plt Count (150-450) k/uL Neutrophils # (1.3-7.7) k/uL Lymphocytes # (1.0-4.8) k/uL Potassium (3.5-5.1) mmol/L BUN (9-20) mg/dL Creatinine (0.66-1.25) mg/dL Glucose (74-99) mg/dL POC Glucose (mg/dL) 267 H 217 H 187 H (75-99) mg/dL Magnesium (1.6-2.3) mg/dL 04/12/18 04/12/18 04/12/18 Range/Units 04:15 04:15 05:55 WBC 11.4 H (3.8-10.6) k/uL RBC 6.30 H (4.30-5.90) m/uL Hct 58.0 H (39.0-53.0) % MCHC 29.9 L (31.0-37.0) g/dL RDW 16.4 H (11.5-15.5) % Plt Count 111 L (150-450) k/uL Neutrophils # 9.7 H (1.3-7.7) k/uL Lymphocytes # 0.9 L (1.0-4.8) k/uL Potassium 5.6 H (3.5-5.1) mmol/L BUN 98 H* (9-20) mg/dL Creatinine 4.61 H (0.66-1.25) mg/dL Glucose 192 H (74-99) mg/dL POC Glucose (mg/dL) 222 H (75-99) mg/dL Magnesium 2.7 H (1.6-2.3) mg/dL 04/12/18 Range/Units 11:44 WBC (3.8-10.6) k/uL RBC (4.30-5.90) m/uL Hct (39.0-53.0) % MCHC (31.0-37.0) g/dL RDW (11.5-15.5) % Plt Count (150-450) k/uL Neutrophils # (1.3-7.7) k/uL Lymphocytes # (1.0-4.8) k/uL Potassium (3.5-5.1) mmol/L BUN (9-20) mg/dL Creatinine (0.66-1.25) mg/dL Glucose (74-99) mg/dL POC Glucose (mg/dL) 181 H (75-99) mg/dL Magnesium (1.6-2.3) mg/dL Assessment and Plan Plan: Assessment and Plan Assessment: 1. Shortness of breath, multifactorial with acute CHF exacerbation as well as acute COPD exacerbation 2. Troponin 0.063, acute non-STEMI ruled out as per cardiology and attributed to cardiomyopathy ,oxygen supply and demand mismatch. 3. Acute on chronic renal failure, stage III 4. CAD,HTN, Hyperlipidemia. 5. Diabetes mellitus type 2 6. Chronic hypoxic respiratory failure 7. Chronic sleep apnea 8. Severe ischemic cardiomyopathy, AICD, EF 40-45% with acute on chronic systolic dysfunction. Current echo reporting EF 50-55%. 9. Bipolar 10. Ongoing nicotine dependence 11. No code, no CPR, no vent #12 acute renal failure: Secondary to excessive diuretic therapy patient was switched to oral Lasix.
--- NOTE | 2018-04-12 15:08 | P.PN ---
Subjective Progress Note Date: 04/12/18 This is a 57-year-old -[place] gentleman with past medical history significant for diabetes, hypertension, hyperlipidemia, prior myocardial infarction, ischemic cardio myopathy with prior AICD implantation, chronic kidney disease, bipolar disorder, COPD, most of the history was obtained from the medical record, patient had received his psychiatric medications and is quite groggy and drowsy this morning difficult to arouse. He really presented to the hospital with symptoms of progressively worsening shortness of breath, on EMS arrival his oxygen saturation was documented to be 70%. Patient was placed on high flow oxygen and brought to the emergency room for further evaluation. At present this morning he is currently on BiPAP. Chest x-ray on arrival here revealed findings suggestive of decompensating congestive heart failure with moderate interstitial edema and pulmonary vascular congestion. EKG on arrival here showed a sinus tachycardia with nonspecific ST-T wave changes. Blood pressure on arrival here 137/73, heart rate 120, 91% on 15% nonrebreather. White blood cell count is normal, hemoglobin 16.1, platelet count on arrival 83, 100 this morning. Sodium 142, potassium 5.1, BUN 34 and creatinine 1.4 on admission, 45 and 2.0 this morning. Ache knees and 2.2. BNP level 874. Troponin 0.063. 04/12/2018 Patient seen and examined this morning, continues to be quite wheezy, but breathing is improving. Let pressure 130/70 with a heart rate in the 80s, 89% on 4 L of oxygen. White blood cell count 11.4, hemoglobin 17, platelet count 111. Sodium 137, potassium 5.0, BUN 98, creatinine 4.6, magnesium 2.7 Objective - Vital Signs Vital signs: Vital Signs Temp 97.4 F L 04/12/18 12:00 Pulse 83 04/12/18 12:00 Resp 18 04/12/18 12:00 BP 131/77 04/12/18 12:00 Pulse Ox 89 L 04/12/18 12:00 Intake & Output 04/11/18 04/12/18 04/12/18 18:59 06:59 18:59 Intake Total 540 200 240 Output Total 320 Balance 540 -120 240 Weight 120.7 kg Intake: Oral 540 200 240 Output: Urine 320 Other: Voiding Method Urinal Urinal Urinal - Exam PHYSICAL EXAMINATION: GENERAL: 57-year-old -[place] gentleman groggy, difficult to arouse this morning. In no acute distress. HEENT: Head is atraumatic, normocephalic. Pupils equal, round. Sclera anicteric. Conjunctiva are clear. Mucous membranes of the mouth are moist. Neck is supple. There is no elevated jugular venous pressure. No carotid bruit is heard. HEART EXAMINATION: Heart S1, S2 normal. No murmur or gallop heard. CHEST EXAMINATION: Lungs reveal scattered coarse rhonchi throughout ABDOMEN: Soft, nontender. Bowel sounds are heard. No organomegaly noted. EXTREMITIES: 1+ peripheral pulses with trace evidence of peripheral edema and no calf tenderness noted. NEUROLOGIC [patient is awake, alert and oriented 2 - Labs CBC & Chem 7: 04/12/18 04:15 04/12/18 09:23 Labs: Abnormal Lab Results - Last 24 Hours (Table) 04/11/18 04/11/18 04/12/18 Range/Units 16:30 20:56 03:44 WBC (3.8-10.6) k/uL RBC (4.30-5.90) m/uL Hct (39.0-53.0) % MCHC (31.0-37.0) g/dL RDW (11.5-15.5) % Plt Count (150-450) k/uL Neutrophils # (1.3-7.7) k/uL Lymphocytes # (1.0-4.8) k/uL Potassium (3.5-5.1) mmol/L BUN (9-20) mg/dL Creatinine (0.66-1.25) mg/dL Glucose (74-99) mg/dL POC Glucose (mg/dL) 267 H 217 H 187 H (75-99) mg/dL Magnesium (1.6-2.3) mg/dL 04/12/18 04/12/18 04/12/18 Range/Units 04:15 04:15 05:55 WBC 11.4 H (3.8-10.6) k/uL RBC 6.30 H (4.30-5.90) m/uL Hct 58.0 H (39.0-53.0) % MCHC 29.9 L (31.0-37.0) g/dL RDW 16.4 H (11.5-15.5) % Plt Count 111 L (150-450) k/uL Neutrophils # 9.7 H (1.3-7.7) k/uL Lymphocytes # 0.9 L (1.0-4.8) k/uL Potassium 5.6 H (3.5-5.1) mmol/L BUN 98 H* (9-20) mg/dL Creatinine 4.61 H (0.66-1.25) mg/dL Glucose 192 H (74-99) mg/dL POC Glucose (mg/dL) 222 H (75-99) mg/dL Magnesium 2.7 H (1.6-2.3) mg/dL 04/12/18 Range/Units 11:44 WBC (3.8-10.6) k/uL RBC (4.30-5.90) m/uL Hct (39.0-53.0) % MCHC (31.0-37.0) g/dL RDW (11.5-15.5) % Plt Count (150-450) k/uL Neutrophils # (1.3-7.7) k/uL Lymphocytes # (1.0-4.8) k/uL Potassium (3.5-5.1) mmol/L BUN (9-20) mg/dL Creatinine (0.66-1.25) mg/dL Glucose (74-99) mg/dL POC Glucose (mg/dL) 181 H (75-99) mg/dL Magnesium (1.6-2.3) mg/dL Assessment and Plan Plan: Assessment and plan #1 acute hypoxic respiratory failure, possible combination of COPD exacerbation , and systolic congestive heart failure acute on chronic #2 chronic renal failure #3 diabetes #4 hypertension #5 hyperlipidemia #6 sleep apnea #7 history of prior IL and stent #8 ischemic cardiomyopathy with prior AICD #9 nicotine dependence #10 COPD #11 bipolar disorder #12 abnormal troponin, upon review of prior admissions, patient consistently has abnormality in his troponin value, likely secondary to oxygen supply and demand mismatch and underlying cardiomyopathy Plan Cardiology's perspective, we will recommend to continue the patient on his current medications. We will follow him along with you now on an as-needed basis only, least on hesitate to call with any questions. DNP note has been reviewed, I agree with a documented findings and plan of care. Patient was seen and examined.
[2018-04-12 16:49] LABS: Glucose,Whole Blood 225 mg/dL (75-99)
--- NOTE | 2018-04-12 18:47 | CONS ---
CONSULTATION REASON FOR CONSULT: Renal failure. HISTORY OF PRESENT ILLNESS: The patient is a 57-year-old male who was admitted to the hospital on 04/09 with complaints of shortness of breath. Patient was in CHF exacerbation along with COPD exacerbation and has been diuresed. Serum creatinine was 1.4 mg/dL on initial admission. It has progressively increased to 2 than 3 and today it is at 4.6 mg/dL. Previous creatinine on 01/20 was 1.8 and 1.9 mg/dL. The patient's ejection fraction is about 50-55%. He is currently not hypotensive, however, I do see a low blood pressure of 98 mmHg for systolic on 04/10/2018. The patient had been on LYNSEY inhibitors which are now discontinued. Currently, patient has been voiding. He was noticed to have high residuals and had a straight cath done last night for 430 mL. Overall, patient states he feels fair. He is not complaining of any chest pains or shortness of breath. His potassium has been elevated at 5.6 today. Blood sugars have been running high as well. Lasix is at p.o. 40 mg daily. PAST MEDICAL HISTORY: Coronary artery disease, cardiomyopathy, ejection fraction previously 40-45%, chronic kidney disease and NKF stage 3-4 with previous creatinine 1.8-1.9 mg/dL, type 2 diabetes, history of obstructive sleep apnea, hypertension, hyperlipidemia, COPD. History of respiratory failure requiring intubation and mechanical ventilation. Bipolar disorder. PAST SURGICAL HISTORY: Permanent pacemaker, AICD, cardiac catheterization. SOCIAL HISTORY: Positive for smoking. No history of drug abuse or alcohol abuse. MEDICATIONS: Medications at home prior to admission included Norvasc, Zyloprim, Desyrel, Seroquel, Lyrica, Lasix, clonidine, Prinivil, Pravachol, hydralazine, Lexapro, Neurontin, Terrell. ALLERGIES: INCLUDE PENICILLIN. SOCIAL HISTORY: As mentioned. REVIEW OF SYSTEMS: As per HPI. No history of fever, chills, nausea, vomiting, abdominal pain, or diarrhea. Other systems negative. EXAMINATION: Patient is currently lying in bed. He is comfortable. He is not in any acute distress. Blood pressure is 131/77, heart rate 83 per minute. He is afebrile. Examination of the heart: S1, S2. Examination lungs: Bilateral breath sounds are heard. Abdomen is soft, nontender. Exam of lower extremities shows chronic skin changes. Trace edema bilaterally. 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 Patient moving all 4 extremities. LAB: Show sodium 137, potassium 5.6, BUN 98, serum creatinine 4.6, hemoglobin 17.4 g/dL. UA is not available. Chest x-ray from early this morning shows resolution of previous bibasilar infiltrates. ASSESSMENT: 1. Acute kidney injury associated with recent CHF exacerbation and diuresis. There is most likely a component of urine retention as well. Since the renal function has deteriorated quite rapidly, I will place a Hernandez catheter. We can continue with current dose of p.o. Lasix. The chest x-ray did not show any significant pulmonary vascular congestion and patient currently does not at the appear to be significantly fluid overloaded. We may need to hold the Lasix tomorrow. I will also check a urinalysis and ultrasound of the kidneys. 2. Chronic kidney disease and NKF stage III, with previous creatinine at 1.8 and occasionally down to 1.6 mg/dL. However, on admission, patient's creatinine was 1.4. He has had proteinuria, therefore likely underlying etiology is diabetic nephropathy. 3. Hyperkalemia associated with worsening renal failure as well as hyperglycemia, status post treatment with insulin. 4. Chronic obstructive pulmonary disease acute exacerbation, maintained on steroids. 5. Disproportionately elevated BUN secondary to steroids. PLAN: Place Hernandez catheter. Repeat labs in a.m. Check urinalysis. Check ultrasound of the kidneys. Continue to avoid nephrotoxic agents. Avoid hypotension. Control blood sugars to avoid further hyperkalemia. We may need to hold the Lasix and start gentle IV hydration if renal function is worse tomorrow. Thank you for this consultation. We will continue to follow the patient with you during his hospitalization. MMODL / IJN: [id number] /
[2018-04-12] MEDS: PRAVASTATIN SODIUM 40 MG TAB PO SCH (21:10)
[2018-04-12] MEDS: QUEtiapine 100 MG TAB PO SCH (21:11)
[2018-04-12 21:20] LABS: Glucose,Whole Blood 227 mg/dL (75-99)
[2018-04-13 01:15] LABS: Amorphous Sediment,Urine Rare /hpf; Appearance,Urine Cloudy (Clear); Bilirubin,Urine Negative (Negative); Blood,Urine Small (Negative); Color,Urine Yellow; Glucose,Urine (UA) Negative (Negative); Ketones,Urine Negative (Negative); Leukocyte Esterase,Urine Large (Negative); Mucus,Urine Rare /hpf; Nitrite,Urine Negative (Negative); Protein,Urine Trace (Negative); RBC,Urine 21 /hpf (0-5); Specific Gravity,Urine 1.012 (1.001-1.035); Squamous Epithelial Cell,Urine 3 /hpf (0-4); Urobilinogen,Urine <2.0 mg/dL (<2.0); WBC,Urine 78 /hpf (0-5)
[2018-04-13 06:19] LABS: Glucose,Whole Blood 226 mg/dL (75-99)
[2018-04-13] MEDS: INSULIN ASPART 100 UNIT/ML 1 ML 10 ML VIAL SQ SCH ×4 (06:32→21:43)
[2018-04-13] MEDS: CARVEDILOL 12.5 MG TAB PO SCH ×2 (06:32→16:54)
[2018-04-13] MEDS: methylPREDNISolone SOD SUCCI 125 MG/2 ML VIAL IV SCH ×4 (06:32→23:33)
[2018-04-13 06:41] LABS: Calcium 8.8 mg/dL (8.4-10.2); Potassium 5.4 mmol/L (3.5-5.1)
[2018-04-13 06:59] LABS: Anisocytosis Slight; Basophils # (A) 0.1 k/uL (0-0.2); Basophils % (A) 0 %; Eosinophils % (A) 0 %; HGB 17.9 gm/dL (13.0-17.5); Hypochromasia Moderate; Lymphocytes # (A) 0.9 k/uL (1.0-4.8); Lymphocytes % (A) 7 %; MCH 27.7 pg (25.0-35.0); MCHC 30.9 g/dL (31.0-37.0); MCV 89.6 fL (80.0-100.0); Mean Platelet Volume 10.3; Monocytes # (A) 0.6 k/uL (0-1.0); Monocytes % (A) 4 %; Neutrophils # (A) 11.4 k/uL (1.3-7.7); Neutrophils % (A) 88 %; Platelet Count 122 k/uL (150-450); RBC 6.49 m/uL (4.30-5.90); RDW 16.2 % (11.5-15.5)
[2018-04-13 07:02] LABS: HCT 58.1 % (39.0-53.0)
[2018-04-13] MEDS: HEPARIN SODIUM,PORCINE 5,000 UNIT/ML 1 ML VIAL SQ SCH ×3 (08:06→23:33)
[2018-04-13] MEDS: AZITHROMYCIN 500 MG TAB PO SCH (08:07)
[2018-04-13] MEDS: ALLOPURINOL 100 MG TAB PO SCH (08:07)
[2018-04-13] MEDS: amLODIPine 10 MG TAB PO SCH (08:07)
[2018-04-13] MEDS: SODIUM CHLORIDE 0.9% 1,000 ML IV SCH ×2 (08:07→21:19)
[2018-04-13] MEDS: hydrALAZINE HCL 50 MG TAB PO SCH ×3 (08:08→20:48)
[2018-04-13] MEDS: GABAPENTIN 300 MG CAP PO SCH (08:08)
[2018-04-13] MEDS: ESCITALOPRAM 20 MG TAB PO SCH (08:08)
[2018-04-13] MEDS: cefTRIAXone IN SWFI 1,000 MG/10 ML SYRINGE IVP SCH (08:14)
[2018-04-13] MEDS: HYDROcodone/APAP 5-325MG 1 EACH TAB PO PRN (08:14)
[2018-04-13] MEDS: PREGABALIN 75 MG CAP PO SCH ×2 (08:15→20:48)
--- NOTE | 2018-04-13 08:48 | PN ---
PROGRESS NOTE Patient is seen for followup for acute kidney injury. His renal function has deteriorated quite rapidly over the last 3-4 days with serum creatinine today up to 5.1. The patient did have some urine retention and a Hernandez catheter was placed yesterday. The 24 hour urine output is documented at 1.4 L. The patient's Lasix was switched to p.o. He is currently not short of breath. Ultrasound of the kidneys done yesterday does not show any hydronephrosis. I will start the patient on gentle IV hydration and continue with indwelling Hernandez catheter for now. We will also decrease the Norvasc to avoid any further episodes of hypotension. PHYSICAL EXAMINATION: On examination today, patient is comfortable. He is not in any acute distress. Blood pressure is 148/88, heart rate is 72 per minute. He is afebrile. Examination of the heart S1, S2. Examination of the lungs bilateral breath sounds are heard. Decreased breath sounds at bases. Abdomen is soft, nontender. Examination of lower extremity shows chronic skin changes. No significant edema is noted. 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 LAB DATA: Show sodium 137, potassium 5.4, BUN 116, serum creatinine 5.1, hemoglobin 17.9 g/dL. UA shows WBCs 78, WBC clumps were noted, blood small, and protein trace. ASSESSMENT: 1. Acute kidney injury, cardiorenal and secondary to urine retention. Currently, patient is status post diuresis. Given the significant rapid deterioration in renal function, I will start gentle IV hydration and continue with indwelling Hernandez catheter. The patient is not on any nephrotoxic medications. I will also decrease the Norvasc to 5 mg daily. 2. Hypertension. Decrease Norvasc. Continue with the Coreg. 3. Congestive heart failure exacerbation, acute on top of chronic. Initial ejection fraction was about 40-45%. Current echo shows ejection fraction 50-55%. 4. Chronic kidney disease with baseline creatinine 1.8-1.9 mg/dL secondary to diabetic nephropathy and nephrosclerosis. 5. Hyperkalemia associated with worsening renal failure. The patient is also polycythemic, which is contributing to the hyperkalemia. Maintain patient on low- potassium diet and repeat potassium this evening. Control blood sugars as that will exacerbate the hyperglycemia. The patient's blood sugars were running high at 226 and 214. PLAN: 1. Control blood sugar. 2. Start IV fluids. 3. Maintain patient on low-potassium diet. 4. Repeat electrolytes this evening. MMODL / IJN: [id number] /
[2018-04-13] MEDS: SYMBICORT 80-4.5 MCG INHALER INHALATION SCH ×3 (08:50→19:35)
[2018-04-13] MEDS: IPRATROPIUM-ALBUTEROL 3 ML NEB INHALATION SCH ×4 (08:50→19:29)
[2018-04-13] MEDS: amLODIPine 5 MG TAB PO SCH (09:26)
--- NOTE | 2018-04-13 10:57 | P.PN ---
Subjective Progress Note Date: 04/13/18 Principal diagnosis: Acute exacerbation of chronic obstructive pulmonary disease, complicated by purulent tracheobronchitis. This 57-year-old -Stateless male presenting with increased cough, thick purulent sputum production, and increased bronchospasm and wheezing for the past 1 week. The patient is known to me from previous hospitalizations. He has multiple medical problems and comorbidities. He is known to have COPD and addition to coronary artery disease, chronic renal failure with stage III chronic kidney disease, congestion heart failure with a previous ejection fraction of 40-45% and the patient has an AICD in place, he has also history of hypertension, hyperlipidemia, depression, bipolar disorder and diabetic peripheral neuropathy and diabetes mellitus. He has also history of obstructive sleep apnea. His current white cell count is at 8.1. His renal function isn't. The patient's creatinine is at 2.0. Repeat echocardiogram was done during this current admission showed improvement in LV function with an ejection fraction of 50-55% and the right ventricular systolic pressure was measured to be 24 and the patient's cardiac rhythm is sinus mechanism. The chest x-ray shows increased interstitial markings bilaterally consistent with pulmonary vascular congestion. Superimposed pneumonia cannot be completely excluded. No significant signs of fluid overload. No worsening in lower extremity edema. No signs of any fluid gain. He has been exposed to children who have had respiratory tract infection at home. No altered mentation. No pleurisy. No hemoptysis. The amount of mucus is been coughed out is copious and purulent. On 04/11/2018 patient seen in follow-up. Resting comfortably in bed, in no acute distress, a bit lethargic, but easily arousable. Pulse ox on 4 L per nasal cannula is 88-89%, patient is wearing BiPAP at bedtime. Afebrile, hemodynamically stable, remains on empiric antibiotics in the form of Zithromax , and Rocephin, seating oral diuretics, nebulized bronchodilators, systemic steroids. Lung sounds reveal diminished breath sounds with scattered rhonchi, and wheezes On 04/12/2018 patient seen again in follow-up on selective care unit. Resting in bed, in no acute distress, is on BiPAP support at night, on nasal cannula during the day, currently at 4 L. He states his breathing has not much improved , although physical exam reveals last bronchospastic lung sounds, and scattered rhonchi. Afebrile, no fever or chills, his chest x-ray has been reviewed, is resolution of the previous bibasilar infiltrates, and stable cardiomegaly. Patient remains on oral diuretics in the form of Lasix 40 mg once daily, and on today's labs there is evidence of worsening renal failure, and BUN is 98, creatinine is 4.61, nephrology has been consulted. WBC is 11.4, hemoglobin is 17.4. And sputum culture is pending. the patient seen again today 04/13/2018 in follow-up on the selective care unit. He is currently resting quite comfortably in bed. He is awake and alert in no acute distress. He is wearing the BiPAP throughout the evening to 4 L of nasal cannula during the day. He denies any worsening shortness of breath, cough or congestion. He's not very active. He needs increased encouragement to be up out of bed. Sputum culture reveals no growth. He is continued on DuoNeb inhalations, Symbicort, IV Solu-Medrol.remains on empiric antibiotics in the form of ceftriaxone and azithromycin. Objective - Vital Signs Vital signs: Vital Signs Temp 98 F 04/13/18 08:00 Pulse 76 04/13/18 09:08 Resp 18 04/13/18 08:00 BP 148/88 04/13/18 08:00 Pulse Ox 92 L 04/13/18 08:00 Intake & Output 04/12/18 04/13/18 04/13/18 18:59 06:59 18:59 Intake Total 480 120 Output Total 730 750 Balance -250 -750 120 Intake: Oral 480 120 Output: Urine 730 750 Uretheral (Hernandez) 330 Other: Voiding Method Indwelling Catheter Indwelling Catheter Indwelling Catheter # Voids 1 - Exam Gen. appearance, comfortable awake nonacute distress. Flat affect noted Head exam was generally normal. There was no scleral icterus or corneal arcus. Mucous membranes were moist. Neck was supple and without jugular venous distension, thyromegaly, or carotid bruits. Carotids were easily palpable bilaterally. There was no adenopathy. Lungs sounds are diminished bilaterally along with scattered rhonchi and scattered expiratory wheezes without the lung livingston bilaterally. Overall less bronchospastic compared to yesterday's exam Cardiac exam revealed the PMI to be normally situated and sized. The rhythm was regular and no extrasystoles were noted during several minutes of auscultation. The first and second heart sounds were normal and physiologic splitting of the second heart sound was noted. There were no murmurs, rubs, clicks, or gallops. Abdominal exam revealed normal bowel sounds. The abdomen was soft, non-tender, and without masses, organomegaly, or appreciable enlargement of the abdominal aorta. Examination of the extremities revealed easily palpable radial, femoral and pedal pulses. There was no cyanosis, clubbing or edema. Examination of the skin revealed no evidence of significant rashes, suspicious appearing nevi or other concerning lesions. Neurologically the patient is awake and alert and there is no focal neurological deficit. - Labs CBC & Chem 7: 04/13/18 06:09 04/13/18 06:09 Labs: Abnormal Lab Results - Last 24 Hours (Table) 04/12/18 04/12/18 04/12/18 Range/Units 11:44 16:47 21:18 WBC (3.8-10.6) k/uL RBC (4.30-5.90) m/uL Hgb (13.0-17.5) gm/dL Hct (39.0-53.0) % MCHC (31.0-37.0) g/dL RDW (11.5-15.5) % Plt Count (150-450) k/uL Neutrophils # (1.3-7.7) k/uL Lymphocytes # (1.0-4.8) k/uL Potassium (3.5-5.1) mmol/L BUN (9-20) mg/dL Creatinine (0.66-1.25) mg/dL Glucose (74-99) mg/dL POC Glucose (mg/dL) 181 H 225 H 227 H (75-99) mg/dL Urine Protein (Negative) Urine Blood (Negative) Ur Leukocyte Esterase (Negative) Urine RBC (0-5) /hpf Urine WBC (0-5) /hpf Urine WBC Clumps (None) /hpf Amorphous Sediment (None) /hpf Urine Mucus (None) /hpf 04/13/18 04/13/18 04/13/18 Range/Units 00:59 06:09 06:09 WBC 13.0 H (3.8-10.6) k/uL RBC 6.49 H (4.30-5.90) m/uL Hgb 17.9 H (13.0-17.5) gm/dL Hct 58.1 H (39.0-53.0) % MCHC 30.9 L (31.0-37.0) g/dL RDW 16.2 H (11.5-15.5) % Plt Count 122 L (150-450) k/uL Neutrophils # 11.4 H (1.3-7.7) k/uL Lymphocytes # 0.9 L (1.0-4.8) k/uL Potassium 5.4 H (3.5-5.1) mmol/L BUN 116 H* (9-20) mg/dL Creatinine 5.11 H* (0.66-1.25) mg/dL Glucose 214 H (74-99) mg/dL POC Glucose (mg/dL) (75-99) mg/dL Urine Protein Trace H (Negative) Urine Blood Small H (Negative) Ur Leukocyte Esterase Large H (Negative) Urine RBC 21 H (0-5) /hpf Urine WBC 78 H (0-5) /hpf Urine WBC Clumps Moderate H (None) /hpf Amorphous Sediment Rare H (None) /hpf Urine Mucus Rare H (None) /hpf 04/13/18 Range/Units 06:16 WBC (3.8-10.6) k/uL RBC (4.30-5.90) m/uL Hgb (13.0-17.5) gm/dL Hct (39.0-53.0) % MCHC (31.0-37.0) g/dL RDW (11.5-15.5) % Plt Count (150-450) k/uL Neutrophils # (1.3-7.7) k/uL Lymphocytes # (1.0-4.8) k/uL Potassium (3.5-5.1) mmol/L BUN (9-20) mg/dL Creatinine (0.66-1.25) mg/dL Glucose (74-99) mg/dL POC Glucose (mg/dL) 226 H (75-99) mg/dL Urine Protein (Negative) Urine Blood (Negative) Ur Leukocyte Esterase (Negative) Urine RBC (0-5) /hpf Urine WBC (0-5) /hpf Urine WBC Clumps (None) /hpf Amorphous Sediment (None) /hpf Urine Mucus (None) /hpf Microbiology - Last 24 Hours (Table) 04/10/18 18:25 Gram Stain - Final Sputum Sputum Culture - Final Assessment and Plan Assessment: Assessment: 1 acute COPD exacerbation with purulent tracheal bronchitis with production of copious amount of purulent respiratory secretions. Underlying pneumonia is currently completely excluded. 2 shortness of breath secondary to above 3 chronic hypoxic respiratory failurechronic hypercapnic respiratory failure secondary to COPD 4 diabetes mellitus 5 diabetic peripheral neuropathy 6 history of congestion heart failure with subsequent improvement in the left ventricular ejection fraction. The patient has had previous history of ischemic cardiomyopathy and has an AICD in place. Based on the most recent echocardiogram the ejection fraction is normalized with an EF around 50-65% without any significant valvular abnormalities 7 coronary artery disease 8 hypertension 9 hyperlipidemia 10 depression 11 previous history of respiratory failure requiring intubation mechanical ventilation 12 bipolar disorder 13 chronic renal failure with stage III chronic kidney disease. Worsening creatinine currently 5.6 secondary to cardiorenal syndrome and urinary retention. Status post diuretics. Plan: The patient was seen and evaluated by Dr. Haile. His creatinine continues to rise.is currently off diuretics.nephrology is on the case as well now. IV fluids resumed. From the pulmonary standpoint he is stable. We'll continue with his current treatment plan. Continue IV Solu-Medrol until discharge and he 'll be transitioned to an oral prednisone burst and taper. I, the cosigning physician, performed a history & physical examination of the patient. Lungs sounds with faint end expiratory wheeze, crackles in posterior bases. Diminished.. Maintaining good O2 saturations in the 90s on 4 L/m per nasal cannula. I discussed the assessment and plan of care with my nurse practitioner, Sil Land. I attest to the above note as dictated by her.
[2018-04-13 11:44] LABS: Glucose,Whole Blood 215 mg/dL (75-99)
--- NOTE | 2018-04-13 12:27 | P.PN ---
Subjective This is a 57-year-old gentleman admitted with acute CHF exacerbation,COPD exacerbation with purulent tracheobronchitis and multiple other medical issues. Maintained on Zithromax, Rocephin, nebulized bronchodilators, systemic steroids. Complains of greenish yellowish sputum production, sputum culture pending. Maintained on BiPAP during the night, currently maintaining O2 sats of low 90s on 4 L nasal cannula. Afebrile. Echo reporting preserved LV function, EF 50-55%. Telemetry sinus rhythm. Diuresed initially with Lasix IV push ,Worsening renal function, creatinine 2. Lasix converted to oral. 04/11/2018 BiPAP at bedside, wore last night. Continues on Rocephin, Zithromax , systemic steroids, nebulized bronchodilators, oral Lasix. Maintaining O2 sats of high 80s on 4 L nasal cannula. Sleepy, arousable. Renal function worsening , up to 3.1. Nephrology consulted. Afebrile, normal WBC. 04/12/2018 Patient's creatinine has worsened because of which nephrology was consulted today patient was switched to oral Lasix. 04/13/2018 She is not feeling well today patient is quite fatigued and creatinine went up to 5.11 patient was started on IV fluids. Patient has rhonchus breath sounds lungs doesn't sound great either. Patient also requirements have gone up. A she is also comparing of increasing shortness of breath Constitutional: As mentioned in HPI Cardio vascular: denied any chest pain, palpitations Gastrointestinal denied any nausea vomiting Pulmonary: As mentioned in HPI Neurologic denied any new focal deficits Objective - Vital Signs Vital signs: Vital Signs Temp 97.5 F L 04/13/18 12:00 Pulse 72 04/13/18 12:04 Resp 18 04/13/18 12:00 BP 117/73 04/13/18 12:00 Pulse Ox 92 L 04/13/18 12:00 Intake & Output 04/12/18 04/13/18 04/13/18 18:59 06:59 18:59 Intake Total 480 120 Output Total 730 750 Balance -250 -750 120 Intake: Oral 480 120 Output: Urine 730 750 Uretheral (Hernandez) 330 Other: Voiding Method Indwelling Catheter Indwelling Catheter Indwelling Catheter # Voids 1 - Exam PHYSICAL EXAM: VITAL SIGNS: As above GENERAL: Sitting up in bed, no acute distress, sleepy, arouses easily HEENT: Conjunctivae normal. eyes normal. Oral mucosa moist. NECK: No JVD. No thyroid enlargement. No LNs CARDIOVASCULAR: S1, S2 muffled. No murmur RESPIRATION: Patient has expiratory wheezing rhonchus breath sounds ABDOMEN: Soft, nontender . No guarding. no masses palpable.Bowel sounds heard. LEGS: No significant edema. no swelling PSYCHIATRY: Alert and oriented -3, mood and affect normal. NERVOUS SYSTEM: Cranial N 2-12 grossly normal. Moves all 4 limbs. Diffuse weakness No focal deficits. - Labs CBC & Chem 7: 04/13/18 06:09 04/13/18 06:09 Labs: Abnormal Lab Results - Last 24 Hours (Table) 04/12/18 04/12/18 04/13/18 Range/Units 16:47 21:18 00:59 WBC (3.8-10.6) k/uL RBC (4.30-5.90) m/uL Hgb (13.0-17.5) gm/dL Hct (39.0-53.0) % MCHC (31.0-37.0) g/dL RDW (11.5-15.5) % Plt Count (150-450) k/uL Neutrophils # (1.3-7.7) k/uL Lymphocytes # (1.0-4.8) k/uL Potassium (3.5-5.1) mmol/L BUN (9-20) mg/dL Creatinine (0.66-1.25) mg/dL Glucose (74-99) mg/dL POC Glucose (mg/dL) 225 H 227 H (75-99) mg/dL Urine Protein Trace H (Negative) Urine Blood Small H (Negative) Ur Leukocyte Esterase Large H (Negative) Urine RBC 21 H (0-5) /hpf Urine WBC 78 H (0-5) /hpf Urine WBC Clumps Moderate H (None) /hpf Amorphous Sediment Rare H (None) /hpf Urine Mucus Rare H (None) /hpf 04/13/18 04/13/18 04/13/18 Range/Units 06:09 06:09 06:16 WBC 13.0 H (3.8-10.6) k/uL RBC 6.49 H (4.30-5.90) m/uL Hgb 17.9 H (13.0-17.5) gm/dL Hct 58.1 H (39.0-53.0) % MCHC 30.9 L (31.0-37.0) g/dL RDW 16.2 H (11.5-15.5) % Plt Count 122 L (150-450) k/uL Neutrophils # 11.4 H (1.3-7.7) k/uL Lymphocytes # 0.9 L (1.0-4.8) k/uL Potassium 5.4 H (3.5-5.1) mmol/L BUN 116 H* (9-20) mg/dL Creatinine 5.11 H* (0.66-1.25) mg/dL Glucose 214 H (74-99) mg/dL POC Glucose (mg/dL) 226 H (75-99) mg/dL Urine Protein (Negative) Urine Blood (Negative) Ur Leukocyte Esterase (Negative) Urine RBC (0-5) /hpf Urine WBC (0-5) /hpf Urine WBC Clumps (None) /hpf Amorphous Sediment (None) /hpf Urine Mucus (None) /hpf 04/13/18 Range/Units 11:41 WBC (3.8-10.6) k/uL RBC (4.30-5.90) m/uL Hgb (13.0-17.5) gm/dL Hct (39.0-53.0) % MCHC (31.0-37.0) g/dL RDW (11.5-15.5) % Plt Count (150-450) k/uL Neutrophils # (1.3-7.7) k/uL Lymphocytes # (1.0-4.8) k/uL Potassium (3.5-5.1) mmol/L BUN (9-20) mg/dL Creatinine (0.66-1.25) mg/dL Glucose (74-99) mg/dL POC Glucose (mg/dL) 215 H (75-99) mg/dL Urine Protein (Negative) Urine Blood (Negative) Ur Leukocyte Esterase (Negative) Urine RBC (0-5) /hpf Urine WBC (0-5) /hpf Urine WBC Clumps (None) /hpf Amorphous Sediment (None) /hpf Urine Mucus (None) /hpf Microbiology - Last 24 Hours (Table) 04/10/18 18:25 Gram Stain - Final Sputum Sputum Culture - Final Assessment and Plan Plan: Assessment and Plan Assessment: 1. Shortness of breath, acute hypoxic and hypercapnic respiratory failure multifactorial with acute CHF exacerbation as well as acute COPD exacerbation 2. Troponin 0.063, acute non-STEMI ruled out as per cardiology and attributed to cardiomyopathy ,oxygen supply and demand mismatch. 3. Acute on chronic renal failure, stage III, acute renal failure is probably secondary to excessive diuretic therapy. 4. CAD,HTN, Hyperlipidemia. 5. Diabetes mellitus type 2 6. Chronic hypoxic respiratory failure 7. Chronic sleep apnea 8. Severe ischemic cardiomyopathy, AICD, EF 40-45% with acute on chronic systolic dysfunction. Current echo reporting EF 50-55%. 9. Bipolar 10. Ongoing nicotine dependence 11. No code, no CPR, no vent #12 acute renal failure: Secondary to excessive diuretic therapy patient was switched to oral Lasix. Patient is not doing well at all today patient clinical condition is guarded. Because of poor renal dysfunction we cannot give him Lasix at this time patient has significant wheezing receiving steroids
[2018-04-13 16:47] LABS: Glucose,Whole Blood 220 mg/dL (75-99)
--- NOTE | 2018-04-13 19:32 | XR ---
EXAMINATION TYPE: XR chest 1V DATE OF EXAM: 04/13/2018 COMPARISON: 04/12/2018 INDICATION: Short of breath TECHNIQUE: Single frontal view of the chest is obtained. FINDINGS: The heart size is mild cardiomegaly. The pulmonary vasculature is prominent. Mild infiltrate is at the right lower lobe. Correlate for atelectasis or pneumonia. Pulmonary edema c ould be considered. There is silhouetting left diaphragm. A retrocardiac infiltrate may be present. P acemaker overlies left chest. IMPRESSION: 1. Retrocardiac infiltrate with a mild infiltrate at the right base. Findings are nonspecific. Consid er atypical pulmonary edema. Pneumonia and atelectasis could be considered. Findings are reoccurrence .
[2018-04-13] MEDS: PRAVASTATIN SODIUM 40 MG TAB PO SCH (20:48)
[2018-04-13] MEDS: QUEtiapine 100 MG TAB PO SCH (20:48)
[2018-04-13 21:05] LABS: Glucose,Whole Blood 194 mg/dL (75-99)
[2018-04-14 06:04] LABS: Glucose,Whole Blood 215 mg/dL (75-99)
[2018-04-14 06:29] LABS: Calcium 8.4 mg/dL (8.4-10.2); Potassium 5.8 mmol/L (3.5-5.1)
[2018-04-14 06:30] LABS: Anisocytosis Slight; Basophils # (A) 0.1 k/uL (0-0.2); Basophils % (A) 1 %; Eosinophils % (A) 0 %; HGB 17.9 gm/dL (13.0-17.5); Hypochromasia Slight; Lymphocytes # (A) 0.9 k/uL (1.0-4.8); Lymphocytes % (A) 6 %; MCH 28.4 pg (25.0-35.0); MCHC 31.6 g/dL (31.0-37.0); MCV 89.8 fL (80.0-100.0); Mean Platelet Volume 10.1; Monocytes # (A) 0.6 k/uL (0-1.0); Monocytes % (A) 4 %; Neutrophils # (A) 13.6 k/uL (1.3-7.7); Neutrophils % (A) 89 %; Platelet Count 135 k/uL (150-450); RBC 6.32 m/uL (4.30-5.90); RDW 16.3 % (11.5-15.5); WBC 15.3 k/uL (3.8-10.6)
[2018-04-14 06:35] LABS: HCT 56.7 % (39.0-53.0)
[2018-04-14] MEDS: INSULIN ASPART 100 UNIT/ML 1 ML 10 ML VIAL SQ SCH ×4 (06:50→21:32)
[2018-04-14] MEDS: CARVEDILOL 12.5 MG TAB PO SCH ×2 (06:50→17:10)
[2018-04-14] MEDS: methylPREDNISolone SOD SUCCI 125 MG/2 ML VIAL IV SCH ×4 (06:52→23:23)
[2018-04-14] MEDS: HEPARIN SODIUM,PORCINE 5,000 UNIT/ML 1 ML VIAL SQ SCH ×3 (07:55→23:23)
[2018-04-14] MEDS: amLODIPine 5 MG TAB PO SCH (07:55)
[2018-04-14] MEDS: ALLOPURINOL 100 MG TAB PO SCH (07:55)
[2018-04-14] MEDS: GABAPENTIN 300 MG CAP PO SCH (07:56)
[2018-04-14] MEDS: hydrALAZINE HCL 50 MG TAB PO SCH ×3 (07:56→20:26)
[2018-04-14] MEDS: ESCITALOPRAM 20 MG TAB PO SCH (07:56)
[2018-04-14] MEDS: AZITHROMYCIN 500 MG TAB PO SCH (07:56)
[2018-04-14] MEDS: cefTRIAXone IN SWFI 1,000 MG/10 ML SYRINGE IVP SCH (08:00)
[2018-04-14] MEDS: PREGABALIN 75 MG CAP PO SCH ×2 (08:00→20:26)
[2018-04-14] MEDS: IPRATROPIUM-ALBUTEROL 3 ML NEB INHALATION SCH ×4 (08:05→21:27)
[2018-04-14] MEDS: SYMBICORT 80-4.5 MCG INHALER INHALATION SCH ×2 (08:05→21:27)
[2018-04-14] MEDS ORDERED: FUROSEMIDE 10 MG/ML 4 ML VIAL IV STA (09:34)
[2018-04-14 11:46] LABS: Glucose,Whole Blood 194 mg/dL (75-99)
[2018-04-14] MEDS: SODIUM CHLORIDE 0.9% 1,000 ML IV SCH ×2 (11:58→21:32)
--- NOTE | 2018-04-14 12:03 | P.PN ---
Subjective This is a 57-year-old gentleman admitted with acute CHF exacerbation,COPD exacerbation with purulent tracheobronchitis and multiple other medical issues. Maintained on Zithromax, Rocephin, nebulized bronchodilators, systemic steroids. Complains of greenish yellowish sputum production, sputum culture pending. Maintained on BiPAP during the night, currently maintaining O2 sats of low 90s on 4 L nasal cannula. Afebrile. Echo reporting preserved LV function, EF 50-55%. Telemetry sinus rhythm. Diuresed initially with Lasix IV push ,Worsening renal function, creatinine 2. Lasix converted to oral. 04/11/2018 BiPAP at bedside, wore last night. Continues on Rocephin, Zithromax , systemic steroids, nebulized bronchodilators, oral Lasix. Maintaining O2 sats of high 80s on 4 L nasal cannula. Sleepy, arousable. Renal function worsening , up to 3.1. Nephrology consulted. Afebrile, normal WBC. 04/12/2018 Patient's creatinine has worsened because of which nephrology was consulted today patient was switched to oral Lasix. 04/13/2018 She is not feeling well today patient is quite fatigued and creatinine went up to 5.11 patient was started on IV fluids. Patient has rhonchus breath sounds lungs doesn't sound great either. Patient also requirements have gone up. A she is also comparing of increasing shortness of breath 04/14/2018 Patient respiratory status improved because of which patient is feeling better today. Her creatinine did get worse. Nephrology is following the patient and believe patient has cardiorenal syndrome. Constitutional: As mentioned in HPI Cardio vascular: denied any chest pain, palpitations Gastrointestinal denied any nausea vomiting Pulmonary: As mentioned in HPI Neurologic denied any new focal deficits Objective - Vital Signs Vital signs: Vital Signs Temp 97.3 F L 04/14/18 07:49 Pulse 78 04/14/18 11:25 Resp 18 04/14/18 08:00 BP 180/98 04/14/18 07:49 Pulse Ox 91 L 04/14/18 07:49 Intake & Output 04/13/18 04/14/18 04/14/18 18:59 06:59 18:59 Intake Total 240 Output Total 500 400 Balance -260 -400 Intake: Oral 240 Output: Urine 500 400 Other: Voiding Method Indwelling Catheter Indwelling Catheter Indwelling Catheter # Bowel Movements 1 - Exam PHYSICAL EXAM: VITAL SIGNS: As above GENERAL: Sitting up in bed, no acute distress, sleepy, arouses easily HEENT: Conjunctivae normal. eyes normal. Oral mucosa moist. NECK: No JVD. No thyroid enlargement. No LNs CARDIOVASCULAR: S1, S2 muffled. No murmur RESPIRATION: Patient has fairly good air entry into bilateral lung living[place] with very minimal expiratory wheezing today ABDOMEN: Soft, nontender . No guarding. no masses palpable.Bowel sounds heard. LEGS: No significant edema. no swelling PSYCHIATRY: Alert and oriented -3, mood and affect normal. NERVOUS SYSTEM: Cranial N 2-12 grossly normal. Moves all 4 limbs. Diffuse weakness No focal deficits. - Labs CBC & Chem 7: 04/14/18 05:49 04/14/18 05:49 Labs: Abnormal Lab Results - Last 24 Hours (Table) 04/13/18 04/13/18 04/13/18 Range/Units 16:41 21:03 21:38 WBC (3.8-10.6) k/uL RBC (4.30-5.90) m/uL Hgb (13.0-17.5) gm/dL Hct (39.0-53.0) % RDW (11.5-15.5) % Plt Count (150-450) k/uL Neutrophils # (1.3-7.7) k/uL Lymphocytes # (1.0-4.8) k/uL Potassium 5.3 H (3.5-5.1) mmol/L BUN (9-20) mg/dL Creatinine (0.66-1.25) mg/dL Glucose (74-99) mg/dL POC Glucose (mg/dL) 220 H 194 H (75-99) mg/dL 04/14/18 04/14/18 04/14/18 Range/Units 05:49 05:49 06:03 WBC 15.3 H (3.8-10.6) k/uL RBC 6.32 H (4.30-5.90) m/uL Hgb 17.9 H (13.0-17.5) gm/dL Hct 56.7 H (39.0-53.0) % RDW 16.3 H (11.5-15.5) % Plt Count 135 L (150-450) k/uL Neutrophils # 13.6 H (1.3-7.7) k/uL Lymphocytes # 0.9 L (1.0-4.8) k/uL Potassium 5.8 H (3.5-5.1) mmol/L BUN 126 H* (9-20) mg/dL Creatinine 5.19 H* (0.66-1.25) mg/dL Glucose 229 H (74-99) mg/dL POC Glucose (mg/dL) 215 H (75-99) mg/dL 04/14/18 Range/Units 11:39 WBC (3.8-10.6) k/uL RBC (4.30-5.90) m/uL Hgb (13.0-17.5) gm/dL Hct (39.0-53.0) % RDW (11.5-15.5) % Plt Count (150-450) k/uL Neutrophils # (1.3-7.7) k/uL Lymphocytes # (1.0-4.8) k/uL Potassium (3.5-5.1) mmol/L BUN (9-20) mg/dL Creatinine (0.66-1.25) mg/dL Glucose (74-99) mg/dL POC Glucose (mg/dL) 194 H (75-99) mg/dL Microbiology - Last 24 Hours (Table) 04/13/18 00:59 Urine Culture - Preliminary Urine,Voided 04/10/18 18:25 Gram Stain - Final Sputum Sputum Culture - Final Assessment and Plan Plan: Assessment and Plan Assessment: 1. Shortness of breath, acute hypoxic and hypercapnic respiratory failure multifactorial with acute CHF exacerbation as well as acute COPD exacerbation 2. Troponin 0.063, acute non-STEMI ruled out as per cardiology and attributed to cardiomyopathy ,oxygen supply and demand mismatch. 3. Acute on chronic renal failure, stage III, acute renal failure is probably secondary to probable cardiorenal syndrome patient may need temporary hemodialysis, patient is fairly euvolemic because of poor renal function receiving IV fluids. 4. CAD,HTN, Hyperlipidemia. 5. Diabetes mellitus type 2 6. Chronic hypoxic respiratory failure 7. Chronic sleep apnea 8. Severe ischemic cardiomyopathy, AICD, EF 40-45% with acute on chronic systolic dysfunction. Current echo reporting EF 50-55%. 9. Bipolar 10. Ongoing nicotine dependence 11. No code, no CPR, no vent
--- NOTE | 2018-04-14 12:16 | P.PN ---
Subjective Progress Note Date: 04/14/18 This 57-year-old -[place] male presenting with increased cough, thick purulent sputum production, and increased bronchospasm and wheezing for the past 1 week. The patient is known to me from previous hospitalizations. He has multiple medical problems and comorbidities. He is known to have COPD and addition to coronary artery disease, chronic renal failure with stage III chronic kidney disease, congestion heart failure with a previous ejection fraction of 40-45% and the patient has an AICD in place, he has also history of hypertension, hyperlipidemia, depression, bipolar disorder and diabetic peripheral neuropathy and diabetes mellitus. He has also history of obstructive sleep apnea. His current white cell count is at 8.1. His renal function isn't. The patient's creatinine is at 2.0. Repeat echocardiogram was done during this current admission showed improvement in LV function with an ejection fraction of 50-55% and the right ventricular systolic pressure was measured to be 24 and the patient's cardiac rhythm is sinus mechanism. The chest x-ray shows increased interstitial markings bilaterally consistent with pulmonary vascular congestion. Superimposed pneumonia cannot be completely excluded. No significant signs of fluid overload. No worsening in lower extremity edema. No signs of any fluid gain. He has been exposed to children who have had respiratory tract infection at home. No altered mentation. No pleurisy. No hemoptysis. The amount of mucus is been coughed out is copious and purulent. On 04/11/2018 patient seen in follow-up. Resting comfortably in bed, in no acute distress, a bit lethargic, but easily arousable. Pulse ox on 4 L per nasal cannula is 88-89%, patient is wearing BiPAP at bedtime. Afebrile, hemodynamically stable, remains on empiric antibiotics in the form of Zithromax , and Rocephin, seating oral diuretics, nebulized bronchodilators, systemic steroids. Lung sounds reveal diminished breath sounds with scattered rhonchi, and wheezes On 04/12/2018 patient seen again in follow-up on selective care unit. Resting in bed, in no acute distress, is on BiPAP support at night, on nasal cannula during the day, currently at 4 L. He states his breathing has not much improved , although physical exam reveals last bronchospastic lung sounds, and scattered rhonchi. Afebrile, no fever or chills, his chest x-ray has been reviewed, is resolution of the previous bibasilar infiltrates, and stable cardiomegaly. Patient remains on oral diuretics in the form of Lasix 40 mg once daily, and on today's labs there is evidence of worsening renal failure, and BUN is 98, creatinine is 4.61, nephrology has been consulted. WBC is 11.4, hemoglobin is 17.4. And sputum culture is pending. the patient seen again today 04/13/2018 in follow-up on the selective care unit. He is currently resting quite comfortably in bed. He is awake and alert in no acute distress. He is wearing the BiPAP throughout the evening to 4 L of nasal cannula during the day. He denies any worsening shortness of breath, cough or congestion. He's not very active. He needs increased encouragement to be up out of bed. Sputum culture reveals no growth. He is continued on DuoNeb inhalations, Symbicort, IV Solu-Medrol.remains on empiric antibiotics in the form of ceftriaxone and azithromycin. On 04/14/2018, this patient's is not having any significant respiratory distress. He shortness of breath is improved as the patient COPD/CHF exacerbation is more optimized. However, as noted, the patient developed progressive worsening renal function and creatinine is on the rise. No signs of any significant fluid overload. His creatinine is worse. This is felt to be related to cardiorenal factors. He is known to have CHF/diastolic dysfunction he was diuresed and he was responding nicely to diuretics and subsequently his creatinine gradually came up from a baseline of 1.4 up to 5.1. His potassium level is at 5.8. No significant metabolic acidosis. His bicarb level is at 30. His chest x-ray is showing some retrocardiac infiltrate with mild infiltration of the right lung base. Otherwise no other acute abnormality is are seen. Objective - Vital Signs Vital signs: Vital Signs Temp 97.3 F L 04/14/18 07:49 Pulse 78 04/14/18 11:25 Resp 18 04/14/18 08:00 BP 180/98 04/14/18 07:49 Pulse Ox 91 L 04/14/18 07:49 Intake & Output 04/13/18 04/14/18 04/14/18 18:59 06:59 18:59 Intake Total 240 Output Total 500 400 Balance -260 -400 Intake: Oral 240 Output: Urine 500 400 Other: Voiding Method Indwelling Catheter Indwelling Catheter Indwelling Catheter # Bowel Movements 1 - Exam Gen. appearance, comfortable awake nonacute distress. Flat affect noted Head exam was generally normal. There was no scleral icterus or corneal arcus. Mucous membranes were moist. Neck was supple and without jugular venous distension, thyromegaly, or carotid bruits. Carotids were easily palpable bilaterally. There was no adenopathy. Lungs sounds are diminished bilaterally along with scattered rhonchi and scattered expiratory wheezes without the lung [place] bilaterally. Overall less bronchospastic compared to yesterday's exam Cardiac exam revealed the PMI to be normally situated and sized. The rhythm was regular and no extrasystoles were noted during several minutes of auscultation. The first and second heart sounds were normal and physiologic splitting of the second heart sound was noted. There were no murmurs, rubs, clicks, or gallops. Abdominal exam revealed normal bowel sounds. The abdomen was soft, non-tender, and without masses, organomegaly, or appreciable enlargement of the abdominal aorta. Examination of the extremities revealed easily palpable radial, femoral and pedal pulses. There was no cyanosis, clubbing or edema. Examination of the skin revealed no evidence of significant rashes, suspicious appearing nevi or other concerning lesions. Neurologically the patient is awake and alert and there is no focal neurological deficit. - Labs CBC & Chem 7: 04/14/18 05:49 04/14/18 05:49 Labs: Abnormal Lab Results - Last 24 Hours (Table) 04/13/18 04/13/18 04/13/18 Range/Units 16:41 21:03 21:38 WBC (3.8-10.6) k/uL RBC (4.30-5.90) m/uL Hgb (13.0-17.5) gm/dL Hct (39.0-53.0) % RDW (11.5-15.5) % Plt Count (150-450) k/uL Neutrophils # (1.3-7.7) k/uL Lymphocytes # (1.0-4.8) k/uL Potassium 5.3 H (3.5-5.1) mmol/L BUN (9-20) mg/dL Creatinine (0.66-1.25) mg/dL Glucose (74-99) mg/dL POC Glucose (mg/dL) 220 H 194 H (75-99) mg/dL 04/14/18 04/14/18 04/14/18 Range/Units 05:49 05:49 06:03 WBC 15.3 H (3.8-10.6) k/uL RBC 6.32 H (4.30-5.90) m/uL Hgb 17.9 H (13.0-17.5) gm/dL Hct 56.7 H (39.0-53.0) % RDW 16.3 H (11.5-15.5) % Plt Count 135 L (150-450) k/uL Neutrophils # 13.6 H (1.3-7.7) k/uL Lymphocytes # 0.9 L (1.0-4.8) k/uL Potassium 5.8 H (3.5-5.1) mmol/L BUN 126 H* (9-20) mg/dL Creatinine 5.19 H* (0.66-1.25) mg/dL Glucose 229 H (74-99) mg/dL POC Glucose (mg/dL) 215 H (75-99) mg/dL 04/14/18 Range/Units 11:39 WBC (3.8-10.6) k/uL RBC (4.30-5.90) m/uL Hgb (13.0-17.5) gm/dL Hct (39.0-53.0) % RDW (11.5-15.5) % Plt Count (150-450) k/uL Neutrophils # (1.3-7.7) k/uL Lymphocytes # (1.0-4.8) k/uL Potassium (3.5-5.1) mmol/L BUN (9-20) mg/dL Creatinine (0.66-1.25) mg/dL Glucose (74-99) mg/dL POC Glucose (mg/dL) 194 H (75-99) mg/dL Microbiology - Last 24 Hours (Table) 04/13/18 00:59 Urine Culture - Preliminary Urine,Voided 04/10/18 18:25 Gram Stain - Final Sputum Sputum Culture - Final Assessment and Plan Plan: Assessment: 1 acute COPD exacerbation with purulent tracheal bronchitis with production of copious amount of purulent respiratory secretions. Underlying pneumonia is currently completely excluded. The sputum sample has not yielded any microbial growth. The patient has some gram-negative bacillus. He is covered with a combination of Rocephin and Zithromax. 2 shortness of breath secondary to above, treated and the patient is improving in terms of his shortness of breath. 3 chronic hypoxic respiratory failurechronic hypercapnic respiratory failure secondary to COPD 4 diabetes mellitus 5 diabetic peripheral neuropathy 6 history of congestion heart failure with subsequent improvement in the left ventricular ejection fraction. The patient has had previous history of ischemic cardiomyopathy and has an AICD in place. Based on the most recent echocardiogram the ejection fraction is normalized with an EF around 50-65% without any significant valvular abnormalities 7 coronary artery disease 8 hypertension 9 hyperlipidemia 10 depression 11 previous history of respiratory failure requiring intubation mechanical ventilation 12 bipolar disorder 13 chronic renal failure with stage III chronic kidney disease. Worsening creatinine currently the creatinine is up to 5.1 secondary to cardiorenal syndrome and urinary retention. Status post diuretics. Plan Stop the diuretics. Avoid any nephrotoxic agents. Continue bronchodilators. Continue Zithromax. Continue IV Solu-Medrol and tapered down to 40 mg every 12 hours. The patient was seen by nephrology. Dialysis is being contemplated. Meanwhile, the patient's echo cardiac rhythm shows a preserved LV function with an ejection fraction of 50-55% and the patient has severe concentric left ventricular hypertrophy and right ventricular systolic pressures around 24 mmHg. He is a bit lethargic and he is arousable and awake. No signs of any respiratory distress. No signs of any significant fluid overload at this point. Potassium as mentioned is borderline elevated. Possible dialysis today or tomorrow if his renal function continues to get worse. He is currently on normal saline at rate of 75 mL an hour.
--- NOTE | 2018-04-14 14:43 | PN ---
PROGRESS NOTE Patient is seen for followup for acute kidney injury. He was started on IV fluids yesterday. His serum creatinine is about the same as yesterday. It is staying at 5.1. The patient has an indwelling Hernandez catheter. The 24 hour urine output was about 1.4 L. He is lying in bed. The patient does not appear to be significantly more short of breath. Chest x-ray from yesterday showed atelectasis, possibility of atypical pulmonary edema. PHYSICAL EXAMINATION: On examination today, blood pressure is elevated. 180/98 this morning. Heart rate of 78 per minute. He is afebrile. Examination of the heart S1, S2. Examination of the lungs bilateral breath sounds are heard. Abdomen is soft, nontender. Examination of the lower extremity shows no significant edema. Chronic skin changes are noted. DIRECTOR OF DIAGNOSTIC IMAGING exam is grossly intact. LABS SHOW: Sodium 138, potassium 5.8, BUN 126, serum creatinine 5.19, hemoglobin 17.9 g/dL. ASSESSMENT: 1. Acute kidney injury, progressive renal failure, mostly cardiorenal. There was element of urine retention as well. The patient is maintained on indwelling Hernandez catheter, which we will continue. Considering the advanced renal failure and overall poor general condition and underlying congestive heart failure, the patient will need to be dialyzed. I have discussed this with him. Patient is agreeable. If his renal function is worse tomorrow, we will proceed with renal replacement therapy. In the meantime, I will continue with the IV fluids and the indwelling Hernandez catheter. There are no nephrotoxic agents on board. UA showed evidence of pyuria. Urine culture is negative. The patient is maintained on Rocephin. 2. Pyuria. Currently maintained on Rocephin. Culture is negative thus far. 3. Congestive heart failure exacerbation, acute on top of chronic mainly diastolic, status post initial diuresis. 4. Generalized debility. 5. Hyperkalemia associated with worsening renal failure. The patient received 1 dose of Lasix. His blood sugars remain high, which will continue to contribute to the hyperkalemia. PLAN: Control blood sugars. I will give IV insulin. Continue with IV fluids. If renal function is not improving by tomorrow, we will proceed with renal replacement therapy. MMODL / IJN: [id number] /
[2018-04-14 15:01] LABS: Glucose,Whole Blood 227 mg/dL (75-99)
[2018-04-14] MEDS ORDERED: INSULIN REGULAR 100 UNIT/ML VIAL IV ONE (15:04)
[2018-04-14 18:10] LABS: Glucose,Whole Blood 181 mg/dL (75-99)
[2018-04-14] MEDS: QUEtiapine 100 MG TAB PO SCH (20:26)
[2018-04-14] MEDS: PRAVASTATIN SODIUM 40 MG TAB PO SCH (20:26)
[2018-04-14 21:05] LABS: Glucose,Whole Blood 211 mg/dL (75-99)
[2018-04-15 05:37] LABS: Glucose,Whole Blood 202 mg/dL (75-99)
[2018-04-15] MEDS: methylPREDNISolone SOD SUCCI 125 MG/2 ML VIAL IV SCH ×2 (06:20→11:48)
[2018-04-15] MEDS: INSULIN ASPART 100 UNIT/ML 1 ML 10 ML VIAL SQ SCH ×4 (06:20→21:25)
[2018-04-15] MEDS: CARVEDILOL 12.5 MG TAB PO SCH ×2 (06:20→15:28)
[2018-04-15] MEDS: IPRATROPIUM-ALBUTEROL 3 ML NEB INHALATION SCH ×4 (08:30→19:48)
[2018-04-15] MEDS: SYMBICORT 80-4.5 MCG INHALER INHALATION SCH ×2 (08:30→19:48)
[2018-04-15] MEDS: HEPARIN SODIUM,PORCINE 5,000 UNIT/ML 1 ML VIAL SQ SCH ×3 (08:47→23:16)
[2018-04-15] MEDS: hydrALAZINE HCL 50 MG TAB PO SCH ×3 (08:48→20:06)
[2018-04-15] MEDS: AZITHROMYCIN 500 MG TAB PO SCH (08:48)
[2018-04-15] MEDS: cefTRIAXone IN SWFI 1,000 MG/10 ML SYRINGE IVP SCH (08:48)
[2018-04-15] MEDS: amLODIPine 5 MG TAB PO SCH (08:48)
[2018-04-15] MEDS: GABAPENTIN 300 MG CAP PO SCH (08:48)
[2018-04-15] MEDS: PREGABALIN 75 MG CAP PO SCH ×2 (08:48→20:05)
[2018-04-15] MEDS: ALLOPURINOL 100 MG TAB PO SCH (08:48)
[2018-04-15] MEDS: ESCITALOPRAM 20 MG TAB PO SCH (08:48)
[2018-04-15 11:18] LABS: Glucose,Whole Blood 268 mg/dL (75-99)
[2018-04-15 12:59] LABS: Calcium 8.8 mg/dL (8.4-10.2); Potassium 5.8 mmol/L (3.5-5.1)
[2018-04-15 13:12] LABS: Anisocytosis Slight; Basophils # (A) 0.1 k/uL (0-0.2); Basophils % (A) 1 %; Eosinophils # (A) 0.1 k/uL (0-0.7); Eosinophils % (A) 0 %; HGB 18.5 gm/dL (13.0-17.5); Hypochromasia Slight; Lymphocytes # (A) 0.9 k/uL (1.0-4.8); Lymphocytes % (A) 5 %; MCHC 31.5 g/dL (31.0-37.0); MCV 88.8 fL (80.0-100.0); Mean Platelet Volume 10.4; Monocytes # (A) 0.7 k/uL (0-1.0); Monocytes % (A) 5 %; Neutrophils # (A) 14.4 k/uL (1.3-7.7); Neutrophils % (A) 89 %; Platelet Count 144 k/uL (150-450); RDW 16.3 % (11.5-15.5); WBC 16.2 k/uL (3.8-10.6)
[2018-04-15 13:20] LABS: HCT 58.6 % (39.0-53.0)
--- NOTE | 2018-04-15 14:50 | P.PN ---
Subjective Progress Note Date: 04/15/18 Principal diagnosis: Acute COPD exacerbation with purulent tracheobronchitis This 57-year-old -N[place]alese male presenting with increased cough, thick purulent sputum production, and increased bronchospasm and wheezing for the past 1 week. The patient is known to me from previous hospitalizations. He has multiple medical problems and comorbidities. He is known to have COPD and addition to coronary artery disease, chronic renal failure with stage III chronic kidney disease, congestion heart failure with a previous ejection fraction of 40-45% and the patient has an AICD in place, he has also history of hypertension, hyperlipidemia, depression, bipolar disorder and diabetic peripheral neuropathy and diabetes mellitus. He has also history of obstructive sleep apnea. His current white cell count is at 8.1. His renal function isn't. The patient's creatinine is at 2.0. Repeat echocardiogram was done during this current admission showed improvement in LV function with an ejection fraction of 50-55% and the right ventricular systolic pressure was measured to be 24 and the patient's cardiac rhythm is sinus mechanism. The chest x-ray shows increased interstitial markings bilaterally consistent with pulmonary vascular congestion. Superimposed pneumonia cannot be completely excluded. No significant signs of fluid overload. No worsening in lower extremity edema. No signs of any fluid gain. He has been exposed to children who have had respiratory tract infection at home. No altered mentation. No pleurisy. No hemoptysis. The amount of mucus is been coughed out is copious and purulent. On 04/11/2018 patient seen in follow-up. Resting comfortably in bed, in no acute distress, a bit lethargic, but easily arousable. Pulse ox on 4 L per nasal cannula is 88-89%, patient is wearing BiPAP at bedtime. Afebrile, hemodynamically stable, remains on empiric antibiotics in the form of Zithromax , and Rocephin, seating oral diuretics, nebulized bronchodilators, systemic steroids. Lung sounds reveal diminished breath sounds with scattered rhonchi, and wheezes On 04/12/2018 patient seen again in follow-up on [facility] care unit. Resting in bed, in no acute distress, is on BiPAP support at night, on nasal cannula during the day, currently at 4 L. He states his breathing has not much improved , although physical exam reveals last bronchospastic lung sounds, and scattered rhonchi. Afebrile, no fever or chills, his chest x-ray has been reviewed, is resolution of the previous bibasilar infiltrates, and stable cardiomegaly. Patient remains on oral diuretics in the form of Lasix 40 mg once daily, and on today's labs there is evidence of worsening renal failure, and BUN is 98, creatinine is 4.61, nephrology has been consulted. WBC is 11.4, hemoglobin is 17.4. And sputum culture is pending. the patient seen again today 04/13/2018 in follow-up on the selective care unit. He is currently resting quite comfortably in bed. He is awake and alert in no acute distress. He is wearing the BiPAP throughout the evening to 4 L of nasal cannula during the day. He denies any worsening shortness of breath, cough or congestion. He's not very active. He needs increased encouragement to be up out of bed. Sputum culture reveals no growth. He is continued on DuoNeb inhalations, Symbicort, IV Solu-Medrol.remains on empiric antibiotics in the form of ceftriaxone and azithromycin. On 04/14/2018, this patient's is not having any significant respiratory distress. He shortness of breath is improved as the patient COPD/CHF exacerbation is more optimized. However, as noted, the patient developed progressive worsening renal function and creatinine is on the rise. No signs of any significant fluid overload. His creatinine is worse. This is felt to be related to cardiorenal factors. He is known to have CHF/diastolic dysfunction he was diuresed and he was responding nicely to diuretics and subsequently his creatinine gradually came up from a baseline of 1.4 up to 5.1. His potassium level is at 5.8. No significant metabolic acidosis. His bicarb level is at 30. His chest x-ray is showing some retrocardiac infiltrate with mild infiltration of the right lung base. Otherwise no other acute abnormality is are seen. On 04/15/2018 patient seen again in follow-up on [facility] care unit. He is sitting in his bed, eating lunch, in no acute distress, and 6 L per nasal cannula with pulse ox of 94%, he is afebrile, hemodynamically stable, today's labs show slight improvement in his renal profile, BUN is stable at 135, creatinine is 4.82. Patient is receiving IV hydration of 0.9 normal saline at a rate of 75 ML per hour. Lung sounds are diminished, no wheezes or rhonchi were noted. Urine and sputum cultures remain negative, I count of 16.2, hemoglobin is 18.5, potassium is 5.8. No new chest x-rays today, patient does wear BiPAP at nighttime. Objective - Vital Signs Vital signs: Vital Signs Temp 97.9 F 04/15/18 12:00 Pulse 72 04/15/18 12:05 Resp 18 04/15/18 12:00 BP 164/99 04/15/18 12:00 Pulse Ox 94 L 04/15/18 12:00 Intake & Output 04/14/18 04/15/18 04/15/18 18:59 06:59 18:59 Intake Total 240 600 725 Output Total 1000 800 Balance -760 -200 725 Intake: IV 225 0.9 225 Intake, IV Titration 600 Amount Sodium Chloride 0.9% 1, 600 000 ml @ 75 mls/hr IV . [id number] [facility] Rx#:[id number] Oral 240 500 Output: Urine 1000 800 Other: Voiding Method Indwelling Catheter Indwelling Catheter Indwelling Catheter # Bowel Movements 1 - Exam Gen. appearance, comfortable awake nonacute distress. Flat affect noted Head exam was generally normal. There was no scleral icterus or corneal arcus. Mucous membranes were moist. Neck was supple and without jugular venous distension, thyromegaly, or carotid bruits. Carotids were easily palpable bilaterally. There was no adenopathy. Lungs sounds are diminished bilaterally, no significant chest congestion noted, no rhonchi, no wheezing. Cardiac exam revealed the PMI to be normally situated and sized. The rhythm was regular and no extrasystoles were noted during several minutes of auscultation. The first and second heart sounds were normal and physiologic splitting of the second heart sound was noted. There were no murmurs, rubs, clicks, or gallops. Abdominal exam revealed normal bowel sounds. The abdomen was soft, non-tender, and without masses, organomegaly, or appreciable enlargement of the abdominal aorta. Examination of the extremities revealed easily palpable radial, femoral and pedal pulses. There was no cyanosis, clubbing or edema. Examination of the skin revealed no evidence of significant rashes, suspicious appearing nevi or other concerning lesions. Neurologically the patient is awake and alert and there is no focal neurological deficit. - Labs CBC & Chem 7: 04/15/18 12:35 04/15/18 12:35 Labs: Abnormal Lab Results - Last 24 Hours (Table) 04/14/18 04/14/18 04/14/18 Range/Units 14:51 18:00 21:03 WBC (3.8-10.6) k/uL RBC (4.30-5.90) m/uL Hgb (13.0-17.5) gm/dL Hct (39.0-53.0) % RDW (11.5-15.5) % Potassium (3.5-5.1) mmol/L BUN (9-20) mg/dL Creatinine (0.66-1.25) mg/dL Glucose (74-99) mg/dL POC Glucose (mg/dL) 227 H 181 H 211 H (75-99) mg/dL 04/15/18 04/15/18 04/15/18 Range/Units 05:36 11:16 12:35 WBC (3.8-10.6) k/uL RBC (4.30-5.90) m/uL Hgb (13.0-17.5) gm/dL Hct (39.0-53.0) % RDW (11.5-15.5) % Potassium 5.8 H (3.5-5.1) mmol/L BUN 135 H* (9-20) mg/dL Creatinine 4.82 H (0.66-1.25) mg/dL Glucose 209 H (74-99) mg/dL POC Glucose (mg/dL) 202 H 268 H (75-99) mg/dL 04/15/18 Range/Units 12:35 WBC 16.2 H (3.8-10.6) k/uL RBC 6.60 H (4.30-5.90) m/uL Hgb 18.5 H (13.0-17.5) gm/dL Hct 58.6 H (39.0-53.0) % RDW 16.3 H (11.5-15.5) % Potassium (3.5-5.1) mmol/L BUN (9-20) mg/dL Creatinine (0.66-1.25) mg/dL Glucose (74-99) mg/dL POC Glucose (mg/dL) (75-99) mg/dL Microbiology - Last 24 Hours (Table) 04/13/18 00:59 Urine Culture - Final Urine,Voided Assessment and Plan Plan: Assessment: 1 acute COPD exacerbation with purulent tracheal bronchitis with production of copious amount of purulent respiratory secretions. Underlying pneumonia is currently completely excluded. Sputum culture showed many normal respiratory sukhdeep. Significant has been treated empirically with a combination of azithromycin and Rocephin. 2 shortness of breath secondary to above 3 chronic hypoxic respiratory failurechronic hypercapnic respiratory failure secondary to COPD 4 diabetes mellitus 5 diabetic peripheral neuropathy 6 history of congestion heart failure with subsequent improvement in the left ventricular ejection fraction. The patient has had previous history of ischemic cardiomyopathy and has an AICD in place. Based on the most recent echocardiogram the ejection fraction is normalized with an EF around 50-65% without any significant valvular abnormalities 7 coronary artery disease 8 hypertension 9 hyperlipidemia 10 depression 11 previous history of respiratory failure requiring intubation mechanical ventilation 12 bipolar disorder 13 chronic renal failure with stage III chronic kidney disease. Plan: Diuretics remain on hold, patient continues on the hydration, and his renal profile is slightly improved on today's labs. Continue current antibiotic coverage, continue nebulized bronchodilators, and we will decrease his Solu- Medrol to 40 mg every 8 hours. Increase activity as tolerated, wean FiO2. Continue to follow. I performed a history & physical examination of the patient and discussed their management with my nurse practitioner, Ysabel Macias. I reviewed the nurse practitioner's note and agree with the documented findings and plan of care. Lung sounds are positive for diminished breath sounds. The findings and the impression was discussed with the patient. I attest to the documentation by the nurse practitioner. Time with Patient: Less than 30
[2018-04-15 15:10] LABS: Large Platelets Present
[2018-04-15] MEDS: SODIUM CHLORIDE 0.9% 1,000 ML IV SCH (15:27)
[2018-04-15] MEDS: methylPREDNISolone SOD SUCCI 40 MG/ML 1 ML VIAL IV SCH ×2 (15:29→23:14)
[2018-04-15 16:24] LABS: Glucose,Whole Blood 333 mg/dL (75-99)
[2018-04-15] MEDS ORDERED: SODIUM POLYSTYRENE SULFONATE 15 GM/60 ML BOTTLE PO STA (16:51)
[2018-04-15] MEDS ORDERED: INSULIN REGULAR 100 UNIT/ML VIAL IV ONE (16:52)
[2018-04-15] MEDS: HYDROcodone/APAP 5-325MG 1 EACH TAB PO PRN (18:16)
[2018-04-15] MEDS: QUEtiapine 100 MG TAB PO SCH (20:05)
[2018-04-15] MEDS: PRAVASTATIN SODIUM 40 MG TAB PO SCH (20:06)
[2018-04-15 21:05] LABS: Glucose,Whole Blood 227 mg/dL (75-99)
--- NOTE | 2018-04-15 21:56 | PN ---
PROGRESS NOTE The patient is seen for followup for acute kidney injury. He is currently maintained on IV fluids. The patient continues to have good urine output. His blood sugar remains elevated. Serum creatinine is slightly lower today, although BUN is higher. The patient is maintained on steroids. EXAMINATION: Currently sitting up in bed. He is comfortable, is not in any acute distress. Blood pressure was 148/100, heart rate 77 per minute. Patient is afebrile. Examination of the heart S1, S2. Examination lungs bilateral breath sounds are heard. Abdomen is soft, nontender. Examination lower extremity shows no significant edema. ADULT MANAGER exam is grossly intact. The patient is moving all 4 extremities. LAB: Show sodium 140, potassium 5.8, BUN 135, serum creatinine 4.8, hemoglobin 18.5 g/dL. ASSESSMENT: 1. Acute kidney injury cardiorenal and secondary to urine retention. Probably an element of acute tubular necrosis as well. Currently patient is being hydrated. I will continue with the IV fluids. I will hold off on dialysis for now. His creatinine has improved. The BUN is disproportionately elevated secondary to steroids. 2. Hyperkalemia associated with significant hyperglycemia and renal failure. Recommend to increase the increase the insulin to help better control the blood sugars to improve the hyperkalemia. 3. Cardiomyopathy, ejection fraction 50-55%. 4. Congestive heart failure, diastolic with exacerbation on this admission initially, status post diuresis. 5. Generalized debility. 6. Pyuria, maintained on IV Rocephin. Urine culture does not show any growth after 18 hours. 7. Hypertension, uncontrolled, status post recent increase in medications also the significantly high dose of steroids is contributing to the uncontrolled hypertension. PLAN: Agree with decreasing steroids. Continue current antihypertensive regimen. Continue with IV fluids. Will give IV insulin for the hyperglycemia. Recommend increasing the dose of insulin to help with the hyperkalemia. MMODL / IJN: [id number] /
[2018-04-15] MEDS ORDERED: INSULIN DETEMIR 100 UNIT/ML 10 ML VIAL SQ SCH (23:15)
[2018-04-16 00:27] LABS: Glucose,Whole Blood 213 mg/dL (75-99)
[2018-04-16] MEDS: INSULIN REGULAR 100 UNIT in SODIUM CHLORIDE 0.9% 100 ML IV SCH (00:30)
[2018-04-16] MEDS: SODIUM CHLORIDE 0.9% 1,000 ML IV SCH (01:44)
[2018-04-16 01:46] LABS: Glucose,Whole Blood 252 mg/dL (75-99)
[2018-04-16 02:35] LABS: Glucose,Whole Blood 168 mg/dL (75-99)
[2018-04-16 03:41] LABS: Glucose,Whole Blood 149 mg/dL (75-99)
[2018-04-16 05:19] LABS: Glucose,Whole Blood 135 mg/dL (75-99)
--- NOTE | 2018-04-16 06:04 | P.PN ---
Subjective History of present illness: This is a 57-year-old gentleman admitted with acute CHF exacerbation,COPD exacerbation with purulent tracheobronchitis and multiple other medical issues. Maintained on Zithromax, Rocephin, nebulized bronchodilators, systemic steroids. Complains of greenish yellowish sputum production, sputum culture pending. Maintained on BiPAP during the night, currently maintaining O2 sats of low 90s on 4 L nasal cannula. Afebrile. Echo reporting preserved LV function, EF 50-55%. Telemetry sinus rhythm. Diuresed initially with Lasix IV push ,Worsening renal function, creatinine 2. Lasix converted to oral. 04/11/2018 BiPAP at bedside, wore last night. Continues on Rocephin, Zithromax , systemic steroids, nebulized bronchodilators, oral Lasix. Maintaining O2 sats of high 80s on 4 L nasal cannula. Sleepy, arousable. Renal function worsening , up to 3.1. Nephrology consulted. Afebrile, normal WBC. 04/12/2018 Patient's creatinine has worsened because of which nephrology was consulted today patient was switched to oral Lasix. 04/13/2018 She is not feeling well today patient is quite fatigued and creatinine went up to 5.11 patient was started on IV fluids. Patient has rhonchus breath sounds lungs doesn't sound great either. Patient also requirements have gone up. A she is also comparing of increasing shortness of breath 04/14/2018 Patient respiratory status improved because of which patient is feeling better today. Her creatinine did get worse. Nephrology is following the patient and believe patient has cardiorenal syndrome. Subjective 04/15/2018 Patient is as his basic mental status, confirmed with the staff. Patient is breathing quietly. BMP: cr trending down today from 5.19 to 4.8, follow-up with creatinine; possible short-term dialysis is on hold now, as per nephrology recommendation. Renal ultrasound shows prominent prostate and he is on Hernandez catheter, with possible isoechoic lesion on the left kidney, and cyst on the right kidney, patient might benefit from urologic evaluation Objective - Vital Signs Vital signs: Vital Signs Temp 97.0 F L 04/15/18 08:40 Pulse 68 04/15/18 11:56 Resp 16 04/15/18 08:40 BP 181/104 04/15/18 08:40 Pulse Ox 96 04/15/18 08:40 Intake & Output 04/14/18 04/15/18 04/15/18 18:59 06:59 18:59 Intake Total 240 600 240 Output Total 1000 800 Balance -760 -200 240 Intake: Intake, IV Titration 600 Amount Sodium Chloride 0.9% 1, 600 000 ml @ 75 mls/hr IV . [id number] [facility] Rx#:[id number] Oral 240 240 Output: Urine 1000 800 Other: Voiding Method Indwelling Catheter Indwelling Catheter # Bowel Movements 1 - Exam PHYSICAL EXAM: VITAL SIGNS: As above GENERAL: Sitting up in bed, no acute distress, sleepy, arouses easily HEENT: Conjunctivae normal. eyes normal. Oral mucosa moist. NECK: No JVD. No thyroid enlargement. No LNs CARDIOVASCULAR: S1, S2 muffled. No murmur -RESPIRATION: Patient has fairly good air entry into bilateral lung [place] with scattered expiratory wheezing today ABDOMEN: Soft, nontender . No guarding. no masses palpable.Bowel sounds heard. LEGS: No significant edema. no swelling PSYCHIATRY: Alert and oriented -3, mood and affect normal. NERVOUS SYSTEM: Cranial N 2-12 grossly normal. Moves all 4 limbs. Diffuse weakness No focal deficits. - Labs CBC & Chem 7: 04/15/18 12:35 04/15/18 21:59 Labs: Abnormal Lab Results - Last 24 Hours (Table) 04/14/18 04/14/18 04/14/18 Range/Units 14:51 18:00 21:03 POC Glucose (mg/dL) 227 H 181 H 211 H (75-99) mg/dL 04/15/18 04/15/18 Range/Units 05:36 11:16 POC Glucose (mg/dL) 202 H 268 H (75-99) mg/dL Microbiology - Last 24 Hours (Table) 04/13/18 00:59 Urine Culture - Final Urine,Voided Assessment and Plan Plan: 1. Shortness of breath, acute hypoxic and hypercapnic respiratory failure multifactorial with acute COPD exacerbation. possible pna (on ceftriaxone and zithromax). Continue with same treatment. pulmonary team are following the case. 2. Troponin 0.063, acute non-STEMI ruled out as per cardiology and attributed to cardiomyopathy ,oxygen supply and demand mismatch. cardiology input is appreciated 3. Acute on chronic renal failure, stage III, acute renal failure is probably secondary to probable cardiorenal syndrome and possible urinary retension, ( his creatinine gradually came up from a baseline of 1.4 up to 5.1). cr is trending down from 5.1 to 4.8. patient may need temporary hemodialysis but this put on hold now for creatinine is improving on iv fluids,c/w IV fluids. Possible urinary retention, continue with Hernandez catheter. nephrology team are following the pt. 4. Right renal cyst, prominent prostate, and possible isoechoic lesion on the left kidney, in view of urinary retention . consult urology. Patient informed and he agrees 5. Diabetes mellitus type 2, start lantus 5 units , and ISS. Hb A1c 6.6% ,but pt is on steroids 6. Chronic hypoxic respiratory failure 7. Chronic sleep apnea 8. h/o ischemic cardiomyopathy, AICD, EF 40-45% chronic systolic dysfunction. Current echo reporting EF 50-55%. 9. CAD,HTN, Hyperlipidemia. c/w same treatment 10. Ongoing nicotine dependence 11. No code, no CPR, no vent 12. leukocytosis, pt is on steroids 13. Bipolar imaging reviewed including: Chest x-ray on 04/13/2018: Mild infiltrate in the right lower lobe and retrocardiac area. Possible atypical pulmonary edema versus pneumonia versus atelectasis Renal ultrasound: Right renal cyst, prominent prostate, and possible isoechoic lesion on the left kidney. DVT px : sc heparin GI px: pepcid prognosis is guarded
[2018-04-16 06:36] LABS: Anisocytosis Slight; HGB 18.6 gm/dL (13.0-17.5); Hypochromasia Slight; MCH 27.5 pg (25.0-35.0); MCV 88.6 fL (80.0-100.0); Mean Platelet Volume 10.7; Platelet Count 154 k/uL (150-450); RBC 6.77 m/uL (4.30-5.90); RDW 16.3 % (11.5-15.5); WBC 19.3 k/uL (3.8-10.6)
[2018-04-16] MEDS: CARVEDILOL 12.5 MG TAB PO SCH ×2 (06:40→22:48)
[2018-04-16 06:41] LABS: Potassium 5.8 mmol/L (3.5-5.1)
[2018-04-16 07:12] LABS: Glucose,Whole Blood 137 mg/dL (75-99)
[2018-04-16 07:14] LABS: Lymphocytes # (M) 1.35 k/uL (1.0-4.8); Monocytes # (M) 0.39 k/uL (0-1.0); Neutrophils # (M) 17.56 k/uL (1.3-7.7); Neutrophils % (M) 91 %; Nucleated Red Blood Cells 0 /100 WBC (0-0); Total Cells Counted 100
[2018-04-16 07:15] LABS: Large Platelets Present
[2018-04-16] MEDS: amLODIPine 5 MG TAB PO SCH (07:45)
[2018-04-16] MEDS: HEPARIN SODIUM,PORCINE 5,000 UNIT/ML 1 ML VIAL SQ SCH ×3 (07:45→22:49)
[2018-04-16] MEDS: methylPREDNISolone SOD SUCCI 40 MG/ML 1 ML VIAL IV SCH ×2 (07:45→22:49)
[2018-04-16] MEDS: cefTRIAXone IN SWFI 1,000 MG/10 ML SYRINGE IVP SCH (07:45)
[2018-04-16] MEDS: ALLOPURINOL 100 MG TAB PO SCH (07:45)
[2018-04-16] MEDS: AZITHROMYCIN 500 MG TAB PO SCH (07:45)
[2018-04-16] MEDS: hydrALAZINE HCL 50 MG TAB PO SCH ×3 (07:46→22:49)
[2018-04-16] MEDS: GABAPENTIN 300 MG CAP PO SCH (07:48)
[2018-04-16] MEDS: PREGABALIN 75 MG CAP PO SCH ×2 (07:48→22:15)
[2018-04-16] MEDS: ESCITALOPRAM 20 MG TAB PO SCH (07:48)
[2018-04-16] MEDS: SYMBICORT 80-4.5 MCG INHALER INHALATION SCH ×2 (08:56→20:14)
[2018-04-16] MEDS: IPRATROPIUM-ALBUTEROL 3 ML NEB INHALATION SCH ×4 (08:56→20:14)
[2018-04-16] MEDS ORDERED: FAMOTIDINE 20 MG/2 ML VIAL IV SCH (09:00)
[2018-04-16 09:01] LABS: Glucose,Whole Blood 145 mg/dL (75-99)
[2018-04-16 10:54] LABS: Glucose,Whole Blood 176 mg/dL (75-99)
[2018-04-16] MEDS ORDERED: SODIUM CHLORIDE 0.9% 1,000 ML IV SCH (11:00)
--- NOTE | 2018-04-16 11:18 | P.PN ---
Subjective Progress Note Date: 04/16/18 Principal diagnosis: Acute exacerbation of chronic obstructive pulmonary disease, complicated by purulent tracheobronchitis. This 57-year-old -[place] male presenting with increased cough, thick purulent sputum production, and increased bronchospasm and wheezing for the past 1 week. The patient is known to me from previous hospitalizations. He has multiple medical problems and comorbidities. He is known to have COPD and addition to coronary artery disease, chronic renal failure with stage III chronic kidney disease, congestion heart failure with a previous ejection fraction of 40-45% and the patient has an AICD in place, he has also history of hypertension, hyperlipidemia, depression, bipolar disorder and diabetic peripheral neuropathy and diabetes mellitus. He has also history of obstructive sleep apnea. His current white cell count is at 8.1. His renal function isn't. The patient's creatinine is at 2.0. Repeat echocardiogram was done during this current admission showed improvement in LV function with an ejection fraction of 50-55% and the right ventricular systolic pressure was measured to be 24 and the patient's cardiac rhythm is sinus mechanism. The chest x-ray shows increased interstitial markings bilaterally consistent with pulmonary vascular congestion. Superimposed pneumonia cannot be completely excluded. No significant signs of fluid overload. No worsening in lower extremity edema. No signs of any fluid gain. He has been exposed to children who have had respiratory tract infection at home. No altered mentation. No pleurisy. No hemoptysis. The amount of mucus is been coughed out is copious and purulent. On 04/11/2018 patient seen in follow-up. Resting comfortably in bed, in no acute distress, a bit lethargic, but easily arousable. Pulse ox on 4 L per nasal cannula is 88-89%, patient is wearing BiPAP at bedtime. Afebrile, hemodynamically stable, remains on empiric antibiotics in the form of Zithromax , and Rocephin, seating oral diuretics, nebulized bronchodilators, systemic steroids. Lung sounds reveal diminished breath sounds with scattered rhonchi, and wheezes On 04/12/2018 patient seen again in follow-up on selective care unit. Resting in bed, in no acute distress, is on BiPAP support at night, on nasal cannula during the day, currently at 4 L. He states his breathing has not much improved , although physical exam reveals last bronchospastic lung sounds, and scattered rhonchi. Afebrile, no fever or chills, his chest x-ray has been reviewed, is resolution of the previous bibasilar infiltrates, and stable cardiomegaly. Patient remains on oral diuretics in the form of Lasix 40 mg once daily, and on today's labs there is evidence of worsening renal failure, and BUN is 98, creatinine is 4.61, nephrology has been consulted. WBC is 11.4, hemoglobin is 17.4. And sputum culture is pending. The patient seen again today 04/13/2018 in follow-up on the selective care unit. He is currently resting quite comfortably in bed. He is awake and alert in no acute distress. He is wearing the BiPAP throughout the evening to 4 L of nasal cannula during the day. He denies any worsening shortness of breath, cough or congestion. He's not very active. He needs increased encouragement to be up out of bed. Sputum culture reveals no growth. He is continued on DuoNeb inhalations, Symbicort, IV Solu-Medrol. Remains on empiric antibiotics in the form of ceftriaxone and azithromycin. On 04/14/2018, this patient's is not having any significant respiratory distress. He shortness of breath is improved as the patient COPD/CHF exacerbation is more optimized. However, as noted, the patient developed progressive worsening renal function and creatinine is on the rise. No signs of any significant fluid overload. His creatinine is worse. This is felt to be related to cardiorenal factors. He is known to have CHF/diastolic dysfunction he was diuresed and he was responding nicely to diuretics and subsequently his creatinine gradually came up from a baseline of 1.4 up to 5.1. His potassium level is at 5.8. No significant metabolic acidosis. His bicarb level is at 30. His chest x-ray is showing some retrocardiac infiltrate with mild infiltration of the right lung base. Otherwise no other acute abnormality is are seen. On 04/15/2018 patient seen again in follow-up on selective care unit. He is sitting in his bed, eating lunch, in no acute distress, and 6 L per nasal cannula with pulse ox of 94%, he is afebrile, hemodynamically stable, today's labs show slight improvement in his renal profile, BUN is stable at 135, creatinine is 4.82. Patient is receiving IV hydration of 0.9 normal saline at a rate of 75 ML per hour. Lung sounds are diminished, no wheezes or rhonchi were noted. Urine and sputum cultures remain negative, I count of 16.2, hemoglobin is 18.5, potassium is 5.8. No new chest x-rays today, patient does wear BiPAP at nighttime. The patient is seen again today 04/16/2018 in follow-up on the selective care unit. He is currently awake and alert in no acute distress. He denies any worsening shortness of breath, cough or congestion. He is maintaining good O2 saturations in the 90s on 6 L high flow nasal cannula. He is currently afebrile. Urine and sputum cultures are negative. White count 19.3. Hemoglobin 18.6. Hematocrit 60.0. Potassium 5.8. BUN 140. Creatinine 4.99. Nephrology is following. Appears to be acute kidney injury cardiorenal and secondary to urinary retention. Probably acute tubular necrosis as well. He is receiving fluids. Indwelling catheter in place. Objective - Vital Signs Vital signs: Vital Signs Temp 96.7 F L 04/16/18 07:38 Pulse 62 04/16/18 09:19 Resp 18 04/16/18 08:00 BP 167/102 04/16/18 07:38 Pulse Ox 92 L 04/16/18 09:07 Intake & Output 04/15/18 04/16/18 04/16/18 18:59 06:59 18:59 Intake Total 982 1852.100 266.125 Output Total 825 900 Balance 157 952.100 266.125 Intake: IV 245 1830 30 0.9 225 600 Invasive Line 1 20 30 30 Sodium Chloride 0.9% 1, 1200 000 ml @ 75 mls/hr IV . [id number] GARIMA Rx#:[id number] Intake, IV Titration 22.100 11.125 Amount Insulin Regular 100 unit 22.100 11.125 In Sodium Chloride 0.9% 100 ml @ As Directed IV . Q0M GARIMA Rx#:[id number] Oral 737 225 Output: Urine 825 900 Stool 0 Other: Voiding Method Indwelling Catheter Indwelling Catheter Indwelling Catheter - Exam Gen. appearance, comfortable awake nonacute distress. Flat affect noted Head exam was generally normal. There was no scleral icterus or corneal arcus. Mucous membranes were moist. Neck was supple and without jugular venous distension, thyromegaly, or carotid bruits. Carotids were easily palpable bilaterally. There was no adenopathy. Lungs sounds are diminished bilaterally along with scattered rhonchi and scattered expiratory wheezes without the lung livingston bilaterally. Overall less bronchospastic compared to yesterday's exam Cardiac exam revealed the PMI to be normally situated and sized. The rhythm was regular and no extrasystoles were noted during several minutes of auscultation. The first and second heart sounds were normal and physiologic splitting of the second heart sound was noted. There were no murmurs, rubs, clicks, or gallops. Abdominal exam revealed normal bowel sounds. The abdomen was soft, non-tender, and without masses, organomegaly, or appreciable enlargement of the abdominal aorta. Examination of the extremities revealed easily palpable radial, femoral and pedal pulses. There was no cyanosis, clubbing or edema. Examination of the skin revealed no evidence of significant rashes, suspicious appearing nevi or other concerning lesions. Neurologically the patient is awake and alert and there is no focal neurological deficit. - Labs CBC & Chem 7: 04/16/18 05:59 04/16/18 05:59 Labs: Abnormal Lab Results - Last 24 Hours (Table) 04/15/18 04/15/18 04/15/18 Range/Units 11:16 12:35 12:35 WBC 16.2 H (3.8-10.6) k/uL RBC 6.60 H (4.30-5.90) m/uL Hgb 18.5 H (13.0-17.5) gm/dL Hct 58.6 H (39.0-53.0) % RDW 16.3 H (11.5-15.5) % Plt Count 144 L (150-450) k/uL Neutrophils # 14.4 H (1.3-7.7) k/uL Neutrophils # (Manual) (1.3-7.7) k/uL Lymphocytes # 0.9 L (1.0-4.8) k/uL Potassium 5.8 H (3.5-5.1) mmol/L Chloride (98-107) mmol/L BUN 135 H* (9-20) mg/dL Creatinine 4.82 H (0.66-1.25) mg/dL Glucose 209 H (74-99) mg/dL POC Glucose (mg/dL) 268 H (75-99) mg/dL 04/15/18 04/15/18 04/15/18 Range/Units 16:22 20:58 21:59 WBC (3.8-10.6) k/uL RBC (4.30-5.90) m/uL Hgb (13.0-17.5) gm/dL Hct (39.0-53.0) % RDW (11.5-15.5) % Plt Count (150-450) k/uL Neutrophils # (1.3-7.7) k/uL Neutrophils # (Manual) (1.3-7.7) k/uL Lymphocytes # (1.0-4.8) k/uL Potassium 5.9 H (3.5-5.1) mmol/L Chloride (98-107) mmol/L BUN (9-20) mg/dL Creatinine (0.66-1.25) mg/dL Glucose (74-99) mg/dL POC Glucose (mg/dL) 333 H 227 H (75-99) mg/dL 04/16/18 04/16/18 04/16/18 Range/Units 00:25 01:33 02:33 WBC (3.8-10.6) k/uL RBC (4.30-5.90) m/uL Hgb (13.0-17.5) gm/dL Hct (39.0-53.0) % RDW (11.5-15.5) % Plt Count (150-450) k/uL Neutrophils # (1.3-7.7) k/uL Neutrophils # (Manual) (1.3-7.7) k/uL Lymphocytes # (1.0-4.8) k/uL Potassium (3.5-5.1) mmol/L Chloride (98-107) mmol/L BUN (9-20) mg/dL Creatinine (0.66-1.25) mg/dL Glucose (74-99) mg/dL POC Glucose (mg/dL) 213 H 252 H 168 H (75-99) mg/dL 04/16/18 04/16/18 04/16/18 Range/Units 03:39 05:18 05:59 WBC 19.3 H (3.8-10.6) k/uL RBC 6.77 H (4.30-5.90) m/uL Hgb 18.6 H (13.0-17.5) gm/dL Hct 60.0 H* (39.0-53.0) % RDW 16.3 H (11.5-15.5) % Plt Count (150-450) k/uL Neutrophils # (1.3-7.7) k/uL Neutrophils # (Manual) 17.56 H (1.3-7.7) k/uL Lymphocytes # (1.0-4.8) k/uL Potassium (3.5-5.1) mmol/L Chloride (98-107) mmol/L BUN (9-20) mg/dL Creatinine (0.66-1.25) mg/dL Glucose (74-99) mg/dL POC Glucose (mg/dL) 149 H 135 H (75-99) mg/dL 04/16/18 04/16/18 04/16/18 Range/Units 05:59 07:11 08:58 WBC (3.8-10.6) k/uL RBC (4.30-5.90) m/uL Hgb (13.0-17.5) gm/dL Hct (39.0-53.0) % RDW (11.5-15.5) % Plt Count (150-450) k/uL Neutrophils # (1.3-7.7) k/uL Neutrophils # (Manual) (1.3-7.7) k/uL Lymphocytes # (1.0-4.8) k/uL Potassium 5.8 H (3.5-5.1) mmol/L Chloride 108 H (98-107) mmol/L BUN 140 H* (9-20) mg/dL Creatinine 4.99 H (0.66-1.25) mg/dL Glucose 137 H (74-99) mg/dL POC Glucose (mg/dL) 137 H 145 H (75-99) mg/dL 04/16/18 Range/Units 10:52 WBC (3.8-10.6) k/uL RBC (4.30-5.90) m/uL Hgb (13.0-17.5) gm/dL Hct (39.0-53.0) % RDW (11.5-15.5) % Plt Count (150-450) k/uL Neutrophils # (1.3-7.7) k/uL Neutrophils # (Manual) (1.3-7.7) k/uL Lymphocytes # (1.0-4.8) k/uL Potassium (3.5-5.1) mmol/L Chloride (98-107) mmol/L BUN (9-20) mg/dL Creatinine (0.66-1.25) mg/dL Glucose (74-99) mg/dL POC Glucose (mg/dL) 176 H (75-99) mg/dL Assessment and Plan Assessment: Assessment: 1 acute COPD exacerbation with purulent tracheal bronchitis with production of copious amount of purulent respiratory secretions. Underlying pneumonia is currently completely excluded. 2 shortness of breath secondary to above 3 chronic hypoxic respiratory failurechronic hypercapnic respiratory failure secondary to COPD 4 diabetes mellitus 5 diabetic peripheral neuropathy 6 history of congestion heart failure with subsequent improvement in the left ventricular ejection fraction. The patient has had previous history of ischemic cardiomyopathy and has an AICD in place. Based on the most recent echocardiogram the ejection fraction is normalized with an EF around 50-65% without any significant valvular abnormalities 7 coronary artery disease 8 hypertension 9 hyperlipidemia 10 depression 11 previous history of respiratory failure requiring intubation mechanical ventilation 12 bipolar disorder 13 acute on chronic renal failure with stage III chronic kidney disease. Worsening creatinine currently 4.82 secondary to cardiorenal syndrome and urinary retention. Status post diuretics. Plan: The patient was seen and evaluated by Dr. Gan. His creatinine increased slightly again. Nephrology is on the case as well now. IV fluids resumed. From the pulmonary standpoint he is stable. We'll continue with his current treatment plan. We will back off further of the IV Solu-Medrol. Increase his activity as tolerated. We'll continue to follow. I, the cosigning physician, performed a history & physical examination of the patient. Lungs sounds with faint end expiratory wheeze, crackles in posterior bases. Diminished.. Maintaining good O2 saturations in the 90s on 6 L high flow nasal cannula. I discussed the assessment and plan of care with my nurse practitioner, Sil Land. I attest to the above note as dictated by her.
[2018-04-16 13:38] LABS: Glucose,Whole Blood 112 mg/dL (75-99)
--- NOTE | 2018-04-16 14:41 | P.PN ---
Subjective Progress Note Date: 04/16/18 Progress note being dictated for Dr. Tavo Barnhart history: This is a 57-year-old gentleman admitted with acute CHF exacerbation,COPD exacerbation with purulent tracheobronchitis and multiple other medical issues. Maintained on Zithromax, Rocephin, nebulized bronchodilators, systemic steroids. Complains of greenish yellowish sputum production, sputum culture pending. Maintained on BiPAP during the night, currently maintaining O2 sats of low 90s on 4 L nasal cannula. Afebrile. Echo reporting preserved LV function, EF 50-55%. Telemetry sinus rhythm. Diuresed initially with Lasix IV push ,Worsening renal function, creatinine 2. Lasix converted to oral. 04/11/2018 BiPAP at bedside, wore last night. Continues on Rocephin, Zithromax , systemic steroids, nebulized bronchodilators, oral Lasix. Maintaining O2 sats of high 80s on 4 L nasal cannula. Sleepy, arousable. Renal function worsening , up to 3.1. Nephrology consulted. Afebrile, normal WBC. Patient's creatinine has worsened because of which nephrology was consulted today patient was switched to oral Lasix. 04/13/2018 She is not feeling well today patient is quite fatigued and creatinine went up to 5.11 patient was started on IV fluids. Patient has rhonchus breath sounds lungs doesn't sound great either. Patient also requirements have gone up. A she is also comparing of increasing shortness of breath 04/14/2018 Patient respiratory status improved because of which patient is feeling better today. Her creatinine did get worse. Nephrology is following the patient and believe patient has cardiorenal syndrome. Subjective 04/15/2018 Patient is as his basic mental status, confirmed with the staff. Patient is breathing quietly. BMP: cr trending down today from 5.19 to 4.8, follow-up with creatinine; possible short-term dialysis is on hold now, as per nephrology recommendation. Renal ultrasound shows prominent prostate and he is on Hernandez catheter, with possible isoechoic lesion on the left kidney, and cyst on the right kidney, patient might benefit from urologic evaluation 04/16/18 more alert today, maintaining O2 sats in the mid 90s on 6 L high flow nasal cannula. Maintained on IV fluid hydration. BUN 140, creatinine 4.99, potassium 5.8. Hematocrit 60. Afebrile, sputum, urine cultures negative. Worsening renal function, vascular surgery consulted for dialysis catheter. Objective - Vital Signs Vital signs: Vital Signs Temp 98.6 F 04/16/18 11:56 Pulse 60 04/16/18 12:47 Resp 18 04/16/18 11:57 BP 175/106 04/16/18 11:56 Pulse Ox 96 04/16/18 11:56 Intake & Output 04/15/18 04/16/18 04/16/18 18:59 06:59 18:59 Intake Total 982 1852.100 289.542 Output Total 825 900 Balance 157 952.100 289.542 Intake: IV 245 1830 40 0.9 225 600 Invasive Line 1 20 30 40 Sodium Chloride 0.9% 1, 1200 000 ml @ 75 mls/hr IV . [id number] [facility] Rx#:[id number] Intake, IV Titration 22.100 24.542 Amount Insulin Regular 100 unit 22.100 24.542 In Sodium Chloride 0.9% 100 ml @ As Directed IV . Q0M [facility] Rx#:[id number] Oral 737 225 Output: Urine 825 900 Stool 0 Other: Voiding Method Indwelling Catheter Indwelling Catheter Indwelling Catheter - Exam PHYSICAL EXAM: VITAL SIGNS: As above GENERAL: Sitting up in bed, awake, alert, no acute distress HEENT: Conjunctivae normal. eyes normal. Oral mucosa moist. NECK: No JVD. No thyroid enlargement. No LNs CARDIOVASCULAR: S1, S2 muffled. No murmur RESPIRATION: Breath sounds diminished in the bases. Scattered rhonchi with expiratory wheezing, no crackles. ABDOMEN: Soft, nontender . No guarding. no masses palpable.Bowel sounds heard. LEGS: No significant edema. no swelling PSYCHIATRY: Alert and oriented -3, mood and affect normal. NERVOUS SYSTEM: Cranial N 2-12 grossly normal. Moves all 4 limbs. Diffuse weakness No focal deficits. - Labs CBC & Chem 7: 04/16/18 05:59 04/16/18 05:59 Labs: Abnormal Lab Results - Last 24 Hours (Table) 04/15/18 04/15/18 04/15/18 Range/Units 12:35 16:22 20:58 WBC 16.2 H (3.8-10.6) k/uL RBC 6.60 H (4.30-5.90) m/uL Hgb 18.5 H (13.0-17.5) gm/dL Hct 58.6 H (39.0-53.0) % RDW 16.3 H (11.5-15.5) % Plt Count 144 L (150-450) k/uL Neutrophils # 14.4 H (1.3-7.7) k/uL Neutrophils # (Manual) (1.3-7.7) k/uL Lymphocytes # 0.9 L (1.0-4.8) k/uL Potassium (3.5-5.1) mmol/L Chloride (98-107) mmol/L BUN (9-20) mg/dL Creatinine (0.66-1.25) mg/dL Glucose (74-99) mg/dL POC Glucose (mg/dL) 333 H 227 H (75-99) mg/dL 04/15/18 04/16/18 04/16/18 Range/Units 21:59 00:25 01:33 WBC (3.8-10.6) k/uL RBC (4.30-5.90) m/uL Hgb (13.0-17.5) gm/dL Hct (39.0-53.0) % RDW (11.5-15.5) % Plt Count (150-450) k/uL Neutrophils # (1.3-7.7) k/uL Neutrophils # (Manual) (1.3-7.7) k/uL Lymphocytes # (1.0-4.8) k/uL Potassium 5.9 H (3.5-5.1) mmol/L Chloride (98-107) mmol/L BUN (9-20) mg/dL Creatinine (0.66-1.25) mg/dL Glucose (74-99) mg/dL POC Glucose (mg/dL) 213 H 252 H (75-99) mg/dL 04/16/18 04/16/18 04/16/18 Range/Units 02:33 03:39 05:18 WBC (3.8-10.6) k/uL RBC (4.30-5.90) m/uL Hgb (13.0-17.5) gm/dL Hct (39.0-53.0) % RDW (11.5-15.5) % Plt Count (150-450) k/uL Neutrophils # (1.3-7.7) k/uL Neutrophils # (Manual) (1.3-7.7) k/uL Lymphocytes # (1.0-4.8) k/uL Potassium (3.5-5.1) mmol/L Chloride (98-107) mmol/L BUN (9-20) mg/dL Creatinine (0.66-1.25) mg/dL Glucose (74-99) mg/dL POC Glucose (mg/dL) 168 H 149 H 135 H (75-99) mg/dL 04/16/18 04/16/18 04/16/18 Range/Units 05:59 05:59 07:11 WBC 19.3 H (3.8-10.6) k/uL RBC 6.77 H (4.30-5.90) m/uL Hgb 18.6 H (13.0-17.5) gm/dL Hct 60.0 H* (39.0-53.0) % RDW 16.3 H (11.5-15.5) % Plt Count (150-450) k/uL Neutrophils # (1.3-7.7) k/uL Neutrophils # (Manual) 17.56 H (1.3-7.7) k/uL Lymphocytes # (1.0-4.8) k/uL Potassium 5.8 H (3.5-5.1) mmol/L Chloride 108 H (98-107) mmol/L BUN 140 H* (9-20) mg/dL Creatinine 4.99 H (0.66-1.25) mg/dL Glucose 137 H (74-99) mg/dL POC Glucose (mg/dL) 137 H (75-99) mg/dL 04/16/18 04/16/18 04/16/18 Range/Units 08:58 10:52 13:34 WBC (3.8-10.6) k/uL RBC (4.30-5.90) m/uL Hgb (13.0-17.5) gm/dL Hct (39.0-53.0) % RDW (11.5-15.5) % Plt Count (150-450) k/uL Neutrophils # (1.3-7.7) k/uL Neutrophils # (Manual) (1.3-7.7) k/uL Lymphocytes # (1.0-4.8) k/uL Potassium (3.5-5.1) mmol/L Chloride (98-107) mmol/L BUN (9-20) mg/dL Creatinine (0.66-1.25) mg/dL Glucose (74-99) mg/dL POC Glucose (mg/dL) 145 H 176 H 112 H (75-99) mg/dL Assessment and Plan Assessment: 1. Hypoxic, Hypercapnic respiratory failure multifactorial secondary to acute CHF exacerbation initially as well as acute COPD exacerbation. No pneumonia as per pulmonary. 2. Troponin 0.063, acute non-STEMI ruled out as per cardiology and attributed to cardiomyopathy ,oxygen supply and demand mismatch. 3. Acute on chronic renal failure, stage III, worsening, secondary to urinary retention, cardiorenal syndrome. ATN. 4. CAD,HTN, Hyperlipidemia. 5. Diabetes mellitus type 2, hemoglobin A1c 6.6 6. Chronic hypoxic respiratory failure 7. Chronic sleep apnea 8. Severe ischemic cardiomyopathy, AICD, EF 40-45% with acute on chronic systolic dysfunction. Current echo reporting EF 50-55%. 9. Bipolar 10. Ongoing nicotine dependence 11. No code, no CPR, no vent 12 .Right renal cyst, prominent prostate, and possible isoechoic lesion on the left kidney, in view of urinary retention , w/u as per urology. 13. Hyperkalemia Plan: Continue on current medication regime ,monitoring and symptomatic treatment. Levemir increased. Close monitoring of electrolytes and renal function with repeat labs ordered for a.m. vascular surgeon consulted for dialysis catheter today. Initiation of hemodialysis today pending as per nephrology. Maintain nebulized bronchodilators, steroids, antibiotics, diuretics. Tapering of steroids as per pulmonary. Close monitoring of renal function with repeat labs ordered for a.m. smoking cessation readdressed. The impression and plan of care has been dictated as directed. : I performed a history and examination of this patient, discussed the same with the dictator. I agree with the dictator's note ,documented as a scribe. Any additional findings or plans will be noted.
[2018-04-16 15:08] LABS: Glucose,Whole Blood 170 mg/dL (75-99)
--- NOTE | 2018-04-16 15:28 | P.GSCN ---
History of Present Illness Consult date: 04/16/18 History of present illness: the patient is 57. He is in the hospital multiple medical illnessesincluding exacerbation of his COPD and an apparent NC. The patient was apparently has had problems urinating. A Hernandez catheters placed. I was asked to see the patient for the urine retention. The patient is interviewed at the bedside however I question the value of the history is the patient repeats himself seems to be disoriented and nor kidney give any real valid history. Most of the questions are answered yes. I see no medications that suggest voiding dysfunction. He has an indwelling catheter that he was even unaware that was placed. 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, insulin-dependent diabetes mellitus, diabetic peripheral neuropathy, diabetic nephropathy, chronic renal failure with stage III chronic kidney disease with a baseline creatinine of 1.6-1.7, history of CHF and based on that echocardiogram that was done in 2018, the patient had a ejection fraction of 40-45%, history of severe ischemic cardiac myopathy and the patient has a AICD in place, coronary artery disease, hypertension, hyperlipidemia, depression him a previous history of acute respiratory failure requiring intubation mechanical ventilation, bipolar disorder, right ankle sprain wearing a immobilizing boot on outpatient basis Last Myocardial Infarction Date:: 2004 History of Any Multi-Drug Resistant Organisms: None Reported Past Surgical History: AICD, Heart Catheterization With Stent, Pacemaker Past Anesthesia/Blood Transfusion Reactions: No Reported Reaction Date of Last Stent Placement:: 2004 Type of Cardiac Device: Permanent Pacemaker, AICD Device Placement Date:: 09/2004 Past Psychological History: Bipolar Smoking Status: Current every day smoker Past Alcohol Use History: None Reported Additional Past Alcohol Use History / Comment(s): STARTED SMOKING AT AGE 19 SMOKED 1PPD THEN DECREASED TO 1 PACK EVERY 3 DAYS. Past Drug Use History: None Reported - Past Family History Father Family Medical History: Cancer Additional Family Medical History / Comment(s): Paternal grandfather with CAD Mother Family Medical History: Cancer Additional Family Medical History / Comment(s): Maternal grandmother had CAD. Mother had cancer. Medications and Allergies Home Medications Medication Instructions Recorded Confirmed Type amLODIPine [Norvasc] 10 mg PO DAILY 01/05/16 04/09/18 History traZODone HCL [Desyrel] 200 mg PO HS 01/05/16 04/09/18 History Allopurinol [Zyloprim] 100 mg PO DAILY 05/21/17 04/09/18 History QUEtiapine [SEROquel] 200 mg PO HS 05/21/17 04/09/18 History Albuterol Inhaler [Ventolin Hfa 2 puff INHALATION RT-QID PRN 11/25/17 04/09/18 History Inhaler] Fluticasone/Vilanterol [Breo 1 puff INHALATION RT-DAILY 11/25/17 04/09/18 History Ellipta 100-25 Mcg Inhaler] Pregabalin [Lyrica] 75 mg PO BID 11/25/17 04/09/18 History Furosemide [Lasix] 40 mg PO DAILY #30 tab 12/11/17 04/09/18 Rx Pravastatin Sodium [Pravachol] 40 mg PO HS 01/14/18 04/09/18 History Carvedilol [Coreg*] 12.5 mg PO BID-W/MEALS #30 tab 01/20/18 04/09/18 Rx hydrALAZINE HCL [Apresoline] 50 mg PO TID #60 tab 01/20/18 04/09/18 Rx Buprenorphine HCl/Naloxone HCl 1 tab SUBLINGUAL BID PRN 04/09/18 04/09/18 History [Zubsolv 5.7-1.4 mg Tablet Sl] Escitalopram [Lexapro] 20 mg PO DAILY 04/09/18 04/09/18 History Gabapentin [Neurontin] 300 mg PO DAILY 04/09/18 04/09/18 History HYDROcodone/APAP 5-325MG [[place] 1 tab PO TID PRN 04/09/18 04/09/18 History 5-325] Cefuroxime Axetil [Ceftin] 500 mg PO BID #14 tab 04/12/18 Rx predniSONE 10 mg PO DAILY #30 tab 04/12/18 Rx Allergies Allergy/AdvReac Type Severity Reaction Status Date / Time Penicillins Allergy Unknown Verified 07/31/18 17:15 Surgical - Exam Vital Signs Temp Pulse Resp BP Pulse Ox 98.8 F 120 H 28 H 137/73 91 L 04/09/18 16:20 04/09/18 16:20 04/09/18 16:20 04/09/18 16:20 04/09/18 16:20 - General well developed, well nourished, no distress - Eyes PERRL - ENT no hearing loss - Neck trachea midline - Respiratory normal expansion, normal respiratory effort - Cardiovascular Rhythm: regular - Abdomen Abdomen: soft, non tender - Genitourinary indwelling catheter, uncircumcised, testes small and atrophic. Prostate 30 g and benign - Integumentary no rash, no growths - Neurologic disoriented, confused - Musculoskeletal normal posture Results - Labs 04/16/18 05:59 04/16/18 05:59 Abnormal Lab Results - Last 24 Hours (Table) 04/15/18 04/15/18 04/15/18 Range/Units 16:22 20:58 21:59 WBC (3.8-10.6) k/uL RBC (4.30-5.90) m/uL Hgb (13.0-17.5) gm/dL Hct (39.0-53.0) % RDW (11.5-15.5) % Neutrophils # (Manual) (1.3-7.7) k/uL Potassium 5.9 H (3.5-5.1) mmol/L Chloride (98-107) mmol/L BUN (9-20) mg/dL Creatinine (0.66-1.25) mg/dL Glucose (74-99) mg/dL POC Glucose (mg/dL) 333 H 227 H (75-99) mg/dL 04/16/18 04/16/18 04/16/18 Range/Units 00:25 01:33 02:33 WBC (3.8-10.6) k/uL RBC (4.30-5.90) m/uL Hgb (13.0-17.5) gm/dL Hct (39.0-53.0) % RDW (11.5-15.5) % Neutrophils # (Manual) (1.3-7.7) k/uL Potassium (3.5-5.1) mmol/L Chloride (98-107) mmol/L BUN (9-20) mg/dL Creatinine (0.66-1.25) mg/dL Glucose (74-99) mg/dL POC Glucose (mg/dL) 213 H 252 H 168 H (75-99) mg/dL 04/16/18 04/16/18 04/16/18 Range/Units 03:39 05:18 05:59 WBC 19.3 H (3.8-10.6) k/uL RBC 6.77 H (4.30-5.90) m/uL Hgb 18.6 H (13.0-17.5) gm/dL Hct 60.0 H* (39.0-53.0) % RDW 16.3 H (11.5-15.5) % Neutrophils # (Manual) 17.56 H (1.3-7.7) k/uL Potassium (3.5-5.1) mmol/L Chloride (98-107) mmol/L BUN (9-20) mg/dL Creatinine (0.66-1.25) mg/dL Glucose (74-99) mg/dL POC Glucose (mg/dL) 149 H 135 H (75-99) mg/dL 04/16/18 04/16/18 04/16/18 Range/Units 05:59 07:11 08:58 WBC (3.8-10.6) k/uL RBC (4.30-5.90) m/uL Hgb (13.0-17.5) gm/dL Hct (39.0-53.0) % RDW (11.5-15.5) % Neutrophils # (Manual) (1.3-7.7) k/uL Potassium 5.8 H (3.5-5.1) mmol/L Chloride 108 H (98-107) mmol/L BUN 140 H* (9-20) mg/dL Creatinine 4.99 H (0.66-1.25) mg/dL Glucose 137 H (74-99) mg/dL POC Glucose (mg/dL) 137 H 145 H (75-99) mg/dL 04/16/18 04/16/18 04/16/18 Range/Units 10:52 13:34 14:33 WBC (3.8-10.6) k/uL RBC (4.30-5.90) m/uL Hgb (13.0-17.5) gm/dL Hct (39.0-53.0) % RDW (11.5-15.5) % Neutrophils # (Manual) (1.3-7.7) k/uL Potassium (3.5-5.1) mmol/L Chloride (98-107) mmol/L BUN (9-20) mg/dL Creatinine (0.66-1.25) mg/dL Glucose (74-99) mg/dL POC Glucose (mg/dL) 176 H 112 H 170 H (75-99) mg/dL Diabetes panel 04/15/18 04/16/18 Range/Units 21:59 05:59 Sodium 145 (137-145) mmol/L Potassium 5.9 H 5.8 H (3.5-5.1) mmol/L Chloride 108 H (98-107) mmol/L Carbon Dioxide 28 (22-30) mmol/L BUN 140 H* (9-20) mg/dL Creatinine 4.99 H (0.66-1.25) mg/dL Glucose 137 H (74-99) mg/dL Calcium 9.0 (8.4-10.2) mg/dL Calcium panel 04/16/18 Range/Units 05:59 Calcium 9.0 (8.4-10.2) mg/dL Pituitary panel 04/15/18 04/16/18 Range/Units 21:59 05:59 Sodium 145 (137-145) mmol/L Potassium 5.9 H 5.8 H (3.5-5.1) mmol/L Chloride 108 H (98-107) mmol/L Carbon Dioxide 28 (22-30) mmol/L BUN 140 H* (9-20) mg/dL Creatinine 4.99 H (0.66-1.25) mg/dL Glucose 137 H (74-99) mg/dL Calcium 9.0 (8.4-10.2) mg/dL Adrenal panel 04/15/18 04/16/18 Range/Units 21:59 05:59 Sodium 145 (137-145) mmol/L Potassium 5.9 H 5.8 H (3.5-5.1) mmol/L Chloride 108 H (98-107) mmol/L Carbon Dioxide 28 (22-30) mmol/L BUN 140 H* (9-20) mg/dL Creatinine 4.99 H (0.66-1.25) mg/dL Glucose 137 H (74-99) mg/dL Calcium 9.0 (8.4-10.2) mg/dL Assessment and Plan Assessment: impression: Apparent urine retention. Nishant reliable history to clarify his voiding function. Multiple medical illnesses. Recommendations. If medically appropriate tamsulosin 0.4 mg daily should be ordered. A voiding trial when he is more appropriate or getting close to being transferred home would be appropriate.
--- NOTE | 2018-04-16 16:09 | CONS ---
CONSULTATION This is a 57 year old male, I was consulted for placement of urgent dialysis catheter. The patient has history of COPD and congestive heart failure, diabetes mellitus. The patient's BUN and creatinine and potassium is high. I was consulted for urgent placement dialysis catheter. PAST MEDICAL HISTORY: Coronary artery disease, cardiomyopathy, ejection fraction of 40-45%, chronic kidney disease, type 2 diabetes mellitus, hyperlipidemia. PAST SURGICAL HISTORY: The patient has AICD and a cardiac catheterization placed in the past. PHYSICAL EXAMINATION: Patient was seen in his room. NECK: Supple. Patient has some crackles at the lung bases. The patient has a pacemaker and an AICD. Abdomen is protuberant. No mass palpable. Femorals are 1+ bilateral. IMPRESSION: 1. Chronic kidney disease with high BUN and creatinine. 2. Hyperkalemia, worsening of renal failure. 3. Chronic obstructive pulmonary disease. PLAN: Placement of the dialysis catheter. Risks and complications, bleeding, infection, thrombosis has been discussed. MMODL / IJN: [id number] /
[2018-04-16 16:23] LABS: Glucose,Whole Blood 111 mg/dL (75-99)
[2018-04-16 16:23] LABS: Glucose,Whole Blood 114 mg/dL (75-99)
[2018-04-16] MEDS ORDERED: IV FLUID CONTINUATION 200 ML IV ONE (16:25)
[2018-04-16] MEDS ORDERED: LIDOCAINE 1% INJ 10MG/ML (20 ML MDV) SQ ONE (16:36)
[2018-04-16 17:25] LABS: Glucose,Whole Blood 100 mg/dL (75-99)
[2018-04-16 18:21] LABS: Glucose,Whole Blood 133 mg/dL (75-99)
[2018-04-16 19:16] LABS: Hepatitis A Antibody IgM Non-Reactive (Non-Reactive); Hepatitis B Core IgM Non-Reactive (Non-Reactive)
[2018-04-16 20:05] LABS: Glucose,Whole Blood 201 mg/dL (75-99)
--- NOTE | 2018-04-16 22:09 | PN ---
PROGRESS NOTE The patient was seen this morning. He is lying in bed. According to nursing staff, he has had decreased mentation. He has not been eating much. The patient has not had any vomiting. He is not short of breath. EXAMINATION: Blood pressure this morning was 170/101. The patient is afebrile. Heart rate about 60 per minute. HEART: S1, S2. LUNGS: Bilateral breath sounds are heard. Decreased breath sounds at bases. Abdomen is soft, nontender. Lower extremities show trace edema bilaterally. The patient has 1+ edema, bilateral upper extremities. LABS: From today show sodium of 145, potassium 5.8, chloride 108, BUN 140, serum creatinine 4.9. Hemoglobin at 18.6 g/dL. ASSESSMENT: 1. Acute kidney injury, cardiorenal and acute tubular necrosis, currently nonoliguric with significantly elevated BUN and altered mentation. We will proceed with renal replacement therapy. Patient will have his first hemodialysis treatment today. 2. Disproportionately elevated BUN secondary to steroids. 3. Hyperkalemia associated with progressive renal failure, hyperglycemia, as well as significant polycythemia. Blood sugars are better controlled now that the patient was on insulin drip which was started yesterday. 4. Congestive heart failure, mainly diastolic on initial admission, status post diuresis. The patient has been maintained on IV fluids. He does appear to be volume overloaded today. Plan is proceed with hemodialysis today. Decrease IV fluids to KVO and we will repeat hemodialysis again tomorrow morning. MMODL / IJN: [id number] /
[2018-04-16 22:12] LABS: Glucose,Whole Blood 181 mg/dL (75-99)
[2018-04-16] MEDS: QUEtiapine 100 MG TAB PO SCH (22:15)
[2018-04-16] MEDS: INSULIN DETEMIR 100 UNIT/ML 10 ML VIAL SQ SCH (22:48)
[2018-04-16] MEDS: PRAVASTATIN SODIUM 40 MG TAB PO SCH (22:49)
[2018-04-17 00:09] LABS: Glucose,Whole Blood 165 mg/dL (75-99)
[2018-04-17 02:00] LABS: Glucose,Whole Blood 134 mg/dL (75-99)
[2018-04-17 04:01] LABS: Glucose,Whole Blood 135 mg/dL (75-99)
[2018-04-17] MEDS: CARVEDILOL 12.5 MG TAB PO SCH ×2 (06:01→18:39)
[2018-04-17 06:10] LABS: Glucose,Whole Blood 155 mg/dL (75-99)
--- NOTE | 2018-04-17 07:22 | PCN ---
PROCEDURE NOTE PREOP DIAGNOSIS: Acute on chronic failure. PROCEDURE PERFORMED: Ultrasound-guided 28 cm dialysis catheter placed right femoral vein. DESCRIPTION OF THE PROCEDURE: This patient brought to the lab courier. Right groin was prepped and drapes applied in the usual sterile manner. 1% lidocaine plain infiltrated. Ultrasound-guided micropuncture into the right femoral vein. Micropuncture guidewire was passed and 4- [place] dilator on the top of the guidewire. Then, fluoroscopy control, we passed the guidewire which was parked in the inferior vena cava. A dilator was advanced on top of the guidewire. Then we placed a 20 cm dialysis catheter on the top of the guidewire. The tip of catheter was in the inferior vena cava, flushed with heparin saline and hep- locked and secured with 3-0 nylon. Patient tolerated the procedure well. MMODL / IJN: [id number] /
[2018-04-17 07:39] LABS: INR 1.1 (<1.2); Prothrombin Time 10.5 sec (9.0-12.0)
[2018-04-17] MEDS: methylPREDNISolone SOD SUCCI 40 MG/ML 1 ML VIAL IV SCH ×2 (08:14→21:14)
[2018-04-17] MEDS: hydrALAZINE HCL 50 MG TAB PO SCH ×3 (08:15→21:14)
[2018-04-17] MEDS: ALLOPURINOL 100 MG TAB PO SCH (08:15)
[2018-04-17] MEDS: PREGABALIN 75 MG CAP PO SCH ×2 (08:15→21:14)
[2018-04-17] MEDS: GABAPENTIN 300 MG CAP PO SCH (08:16)
[2018-04-17] MEDS: amLODIPine 5 MG TAB PO SCH (08:16)
[2018-04-17] MEDS: FAMOTIDINE 20 MG TAB PO SCH (08:16)
[2018-04-17] MEDS: cefTRIAXone IN SWFI 1,000 MG/10 ML SYRINGE IVP SCH (08:16)
[2018-04-17] MEDS: AZITHROMYCIN 500 MG TAB PO SCH (08:16)
[2018-04-17] MEDS: ESCITALOPRAM 20 MG TAB PO SCH (08:17)
[2018-04-17 08:36] LABS: Glucose,Whole Blood 151 mg/dL (75-99)
[2018-04-17] MEDS: SYMBICORT 80-4.5 MCG INHALER INHALATION SCH ×2 (08:37→20:48)
[2018-04-17] MEDS: IPRATROPIUM-ALBUTEROL 3 ML NEB INHALATION SCH ×4 (08:37→20:50)
[2018-04-17 09:11] LABS: Anisocytosis Slight; Basophils # (A) 0.1 k/uL (0-0.2); Basophils % (A) 1 %; Eosinophils % (A) 0 %; HGB 17.9 gm/dL (13.0-17.5); Hypochromasia Slight; Lymphocytes # (A) 0.9 k/uL (1.0-4.8); Lymphocytes % (A) 6 %; MCH 27.2 pg (25.0-35.0); MCHC 30.7 g/dL (31.0-37.0); MCV 88.7 fL (80.0-100.0); Mean Platelet Volume 10.4; Monocytes # (A) 0.7 k/uL (0-1.0); Monocytes % (A) 5 %; Neutrophils % (A) 88 %; Platelet Count 120 k/uL (150-450); RBC 6.56 m/uL (4.30-5.90); RDW 16.3 % (11.5-15.5); WBC 15.8 k/uL (3.8-10.6)
[2018-04-17 09:13] LABS: HCT 58.2 % (39.0-53.0)
[2018-04-17 09:52] LABS: Calcium 8.8 mg/dL (8.4-10.2); Potassium 5.4 mmol/L (3.5-5.1)
--- NOTE | 2018-04-17 09:56 | IR ---
EXAMINATION TYPE: IR cvc insert non tunneled DATE OF EXAM: 04/16/2018 COMPARISON: NONE HISTORY: Dialysis catheter placement Fluoroscopy support supplied to the referring clinician. See dictated report from vascular surgery, 38 intraoperative C-arm images, 0.1 minutes fluoroscopy time
[2018-04-17 10:33] LABS: Glucose,Whole Blood 378 mg/dL (75-99)
[2018-04-17] MEDS: INSULIN REGULAR 100 UNIT in SODIUM CHLORIDE 0.9% 100 ML IV SCH (10:36)
[2018-04-17 10:37] LABS: Glucose,Whole Blood 225 mg/dL (75-99)
--- NOTE | 2018-04-17 11:41 | P.PN ---
Subjective Progress Note Date: 04/17/18 Principal diagnosis: Acute exacerbation of chronic obstructive pulmonary disease, complicated by purulent tracheobronchitis. This 57-year-old -[place] male presenting with increased cough, thick purulent sputum production, and increased bronchospasm and wheezing for the past 1 week. The patient is known to me from previous hospitalizations. He has multiple medical problems and comorbidities. He is known to have COPD and addition to coronary artery disease, chronic renal failure with stage III chronic kidney disease, congestion heart failure with a previous ejection fraction of 40-45% and the patient has an AICD in place, he has also history of hypertension, hyperlipidemia, depression, bipolar disorder and diabetic peripheral neuropathy and diabetes mellitus. He has also history of obstructive sleep apnea. His current white cell count is at 8.1. His renal function isn't. The patient's creatinine is at 2.0. Repeat echocardiogram was done during this current admission showed improvement in LV function with an ejection fraction of 50-55% and the right ventricular systolic pressure was measured to be 24 and the patient's cardiac rhythm is sinus mechanism. The chest x-ray shows increased interstitial markings bilaterally consistent with pulmonary vascular congestion. Superimposed pneumonia cannot be completely excluded. No significant signs of fluid overload. No worsening in lower extremity edema. No signs of any fluid gain. He has been exposed to children who have had respiratory tract infection at home. No altered mentation. No pleurisy. No hemoptysis. The amount of mucus is been coughed out is copious and purulent. On 04/11/2018 patient seen in follow-up. Resting comfortably in bed, in no acute distress, a bit lethargic, but easily arousable. Pulse ox on 4 L per nasal cannula is 88-89%, patient is wearing BiPAP at bedtime. Afebrile, hemodynamically stable, remains on empiric antibiotics in the form of Zithromax , and Rocephin, seating oral diuretics, nebulized bronchodilators, systemic steroids. Lung sounds reveal diminished breath sounds with scattered rhonchi, and wheezes On 04/12/2018 patient seen again in follow-up on selective care unit. Resting in bed, in no acute distress, is on BiPAP support at night, on nasal cannula during the day, currently at 4 L. He states his breathing has not much improved , although physical exam reveals last bronchospastic lung sounds, and scattered rhonchi. Afebrile, no fever or chills, his chest x-ray has been reviewed, is resolution of the previous bibasilar infiltrates, and stable cardiomegaly. Patient remains on oral diuretics in the form of Lasix 40 mg once daily, and on today's labs there is evidence of worsening renal failure, and BUN is 98, creatinine is 4.61, nephrology has been consulted. WBC is 11.4, hemoglobin is 17.4. And sputum culture is pending. The patient seen again today 04/13/2018 in follow-up on the selective care unit. He is currently resting quite comfortably in bed. He is awake and alert in no acute distress. He is wearing the BiPAP throughout the evening to 4 L of nasal cannula during the day. He denies any worsening shortness of breath, cough or congestion. He's not very active. He needs increased encouragement to be up out of bed. Sputum culture reveals no growth. He is continued on DuoNeb inhalations, Symbicort, IV Solu-Medrol. Remains on empiric antibiotics in the form of ceftriaxone and azithromycin. On 04/14/2018, this patient's is not having any significant respiratory distress. He shortness of breath is improved as the patient COPD/CHF exacerbation is more optimized. However, as noted, the patient developed progressive worsening renal function and creatinine is on the rise. No signs of any significant fluid overload. His creatinine is worse. This is felt to be related to cardiorenal factors. He is known to have CHF/diastolic dysfunction he was diuresed and he was responding nicely to diuretics and subsequently his creatinine gradually came up from a baseline of 1.4 up to 5.1. His potassium level is at 5.8. No significant metabolic acidosis. His bicarb level is at 30. His chest x-ray is showing some retrocardiac infiltrate with mild infiltration of the right lung base. Otherwise no other acute abnormality is are seen. On 04/15/2018 patient seen again in follow-up on selective care unit. He is sitting in his bed, eating lunch, in no acute distress, and 6 L per nasal cannula with pulse ox of 94%, he is afebrile, hemodynamically stable, today's labs show slight improvement in his renal profile, BUN is stable at 135, creatinine is 4.82. Patient is receiving IV hydration of 0.9 normal saline at a rate of 75 ML per hour. Lung sounds are diminished, no wheezes or rhonchi were noted. Urine and sputum cultures remain negative, I count of 16.2, hemoglobin is 18.5, potassium is 5.8. No new chest x-rays today, patient does wear BiPAP at nighttime. The patient is seen again today 04/16/2018 in follow-up on the selective care unit. He is currently awake and alert in no acute distress. He denies any worsening shortness of breath, cough or congestion. He is maintaining good O2 saturations in the 90s on 6 L high flow nasal cannula. He is currently afebrile. Urine and sputum cultures are negative. White count 19.3. Hemoglobin 18.6. Hematocrit 60.0. Potassium 5.8. BUN 140. Creatinine 4.99. Nephrology is following. Appears to be acute kidney injury cardiorenal and secondary to urinary retention. Probably acute tubular necrosis as well. He is receiving fluids. Indwelling catheter in place. The patient is seen again today 04/17/2018 in follow-up on the selective care unit. He is awake and alert in no acute distress. He denies any worsening shortness of breath, cough or congestion. Continues to maintain good O2 saturations in the 90s on 6 L high flow nasal cannula. He did end up receiving hemodialysis catheter and hemodialysis yesterday and the plan is for repeat dialysis today which may improve his FiO2 requirements we'll repeat a chest x- ray following today's treatment. White count 15.8. Hemoglobin 17.9. Hematocrit 58.2. BUN 108. Creatinine 3.88. Potassium 5.4. Objective - Vital Signs Vital signs: Vital Signs Temp 97.3 F L 04/17/18 07:30 Pulse 69 04/17/18 08:47 Resp 18 04/17/18 08:00 BP 169/122 04/17/18 07:30 Pulse Ox 96 04/17/18 07:30 Intake & Output 04/16/18 04/17/18 04/17/18 18:59 06:59 18:59 Intake Total 475.259 386.016 249.316 Output Total 1200 3000 Balance -724.741 386.016 -2750.684 Weight 96 kg Intake: IV 100 360 0.9 360 Invasive Line 1 50 Intake, IV Titration 30.259 26.016 9.316 Amount Insulin Regular 100 unit 30.259 26.016 9.316 In Sodium Chloride 0.9% 100 ml @ As Directed IV . Q0M [facility] Rx#:[id number] Oral 345 240 Output: Urine 1200 3000 Stool 0 0 Other: Voiding Method Indwelling Catheter Indwelling Catheter Indwelling Catheter # Bowel Movements 0 0 - Exam Gen. appearance, comfortable awake no acute distress. Flat affect noted Head exam was generally normal. There was no scleral icterus or corneal arcus. Mucous membranes were moist. Neck was supple and without jugular venous distension, thyromegaly, or carotid bruits. Carotids were easily palpable bilaterally. There was no adenopathy. Lungs sounds are diminished bilaterally along with scattered rhonchi and scattered expiratory wheezes without the lung livingston bilaterally. Overall less bronchospastic compared to yesterday's exam Cardiac exam revealed the PMI to be normally situated and sized. The rhythm was regular and no extrasystoles were noted during several minutes of auscultation. The first and second heart sounds were normal and physiologic splitting of the second heart sound was noted. There were no murmurs, rubs, clicks, or gallops. Abdominal exam revealed normal bowel sounds. The abdomen was soft, non-tender, and without masses, organomegaly, or appreciable enlargement of the abdominal aorta. Examination of the extremities revealed easily palpable radial, femoral and pedal pulses. There is a new right femoral hemodialysis catheter in place. There was no cyanosis, clubbing or edema. Examination of the skin revealed no evidence of significant rashes, suspicious appearing nevi or other concerning lesions. Neurologically the patient is awake and alert and there is no focal neurological deficit. - Labs CBC & Chem 7: 04/17/18 08:32 04/17/18 08:32 Labs: Abnormal Lab Results - Last 24 Hours (Table) 04/16/18 04/16/18 04/16/18 Range/Units 13:34 14:33 15:50 WBC (3.8-10.6) k/uL RBC (4.30-5.90) m/uL Hgb (13.0-17.5) gm/dL Hct (39.0-53.0) % MCHC (31.0-37.0) g/dL RDW (11.5-15.5) % Plt Count (150-450) k/uL Neutrophils # (1.3-7.7) k/uL Lymphocytes # (1.0-4.8) k/uL Potassium (3.5-5.1) mmol/L BUN (9-20) mg/dL Creatinine (0.66-1.25) mg/dL Glucose (74-99) mg/dL POC Glucose (mg/dL) 112 H 170 H 111 H (75-99) mg/dL 04/16/18 04/16/18 04/16/18 Range/Units 16:15 17:07 18:01 WBC (3.8-10.6) k/uL RBC (4.30-5.90) m/uL Hgb (13.0-17.5) gm/dL Hct (39.0-53.0) % MCHC (31.0-37.0) g/dL RDW (11.5-15.5) % Plt Count (150-450) k/uL Neutrophils # (1.3-7.7) k/uL Lymphocytes # (1.0-4.8) k/uL Potassium (3.5-5.1) mmol/L BUN (9-20) mg/dL Creatinine (0.66-1.25) mg/dL Glucose (74-99) mg/dL POC Glucose (mg/dL) 114 H 100 H 133 H (75-99) mg/dL 04/16/18 04/16/18 04/17/18 Range/Units 20:05 22:11 00:03 WBC (3.8-10.6) k/uL RBC (4.30-5.90) m/uL Hgb (13.0-17.5) gm/dL Hct (39.0-53.0) % MCHC (31.0-37.0) g/dL RDW (11.5-15.5) % Plt Count (150-450) k/uL Neutrophils # (1.3-7.7) k/uL Lymphocytes # (1.0-4.8) k/uL Potassium (3.5-5.1) mmol/L BUN (9-20) mg/dL Creatinine (0.66-1.25) mg/dL Glucose (74-99) mg/dL POC Glucose (mg/dL) 201 H 181 H 165 H (75-99) mg/dL 04/17/18 04/17/18 04/17/18 Range/Units 01:48 03:58 05:58 WBC (3.8-10.6) k/uL RBC (4.30-5.90) m/uL Hgb (13.0-17.5) gm/dL Hct (39.0-53.0) % MCHC (31.0-37.0) g/dL RDW (11.5-15.5) % Plt Count (150-450) k/uL Neutrophils # (1.3-7.7) k/uL Lymphocytes # (1.0-4.8) k/uL Potassium (3.5-5.1) mmol/L BUN (9-20) mg/dL Creatinine (0.66-1.25) mg/dL Glucose (74-99) mg/dL POC Glucose (mg/dL) 134 H 135 H 155 H (75-99) mg/dL 04/17/18 04/17/18 04/17/18 Range/Units 08:16 08:32 08:32 WBC 15.8 H (3.8-10.6) k/uL RBC 6.56 H (4.30-5.90) m/uL Hgb 17.9 H (13.0-17.5) gm/dL Hct 58.2 H (39.0-53.0) % MCHC 30.7 L (31.0-37.0) g/dL RDW 16.3 H (11.5-15.5) % Plt Count 120 L (150-450) k/uL Neutrophils # 14.0 H (1.3-7.7) k/uL Lymphocytes # 0.9 L (1.0-4.8) k/uL Potassium 5.4 H (3.5-5.1) mmol/L BUN 108 H* (9-20) mg/dL Creatinine 3.88 H (0.66-1.25) mg/dL Glucose 172 H (74-99) mg/dL POC Glucose (mg/dL) 151 H (75-99) mg/dL 04/17/18 04/17/18 Range/Units 10:32 10:34 WBC (3.8-10.6) k/uL RBC (4.30-5.90) m/uL Hgb (13.0-17.5) gm/dL Hct (39.0-53.0) % MCHC (31.0-37.0) g/dL RDW (11.5-15.5) % Plt Count (150-450) k/uL Neutrophils # (1.3-7.7) k/uL Lymphocytes # (1.0-4.8) k/uL Potassium (3.5-5.1) mmol/L BUN (9-20) mg/dL Creatinine (0.66-1.25) mg/dL Glucose (74-99) mg/dL POC Glucose (mg/dL) 378 H 225 H (75-99) mg/dL Assessment and Plan Assessment: Assessment: 1 acute COPD exacerbation with purulent tracheal bronchitis with production of copious amount of purulent respiratory secretions. Underlying pneumonia is currently completely excluded. 2 shortness of breath secondary to above 3 chronic hypoxic respiratory failurechronic hypercapnic respiratory failure secondary to COPD 4 diabetes mellitus 5 diabetic peripheral neuropathy 6 history of congestion heart failure with subsequent improvement in the left ventricular ejection fraction. The patient has had previous history of ischemic cardiomyopathy and has an AICD in place. Based on the most recent echocardiogram the ejection fraction is normalized with an EF around 50-65% without any significant valvular abnormalities 7 coronary artery disease 8 hypertension 9 hyperlipidemia 10 depression 11 previous history of respiratory failure requiring intubation mechanical ventilation 12 bipolar disorder 13 acute on chronic renal failure with stage III chronic kidney disease. Worsening creatinine currently 4.99 secondary to cardiorenal syndrome and urinary retention. Status post diuretics. Patient did end up requiring placement of a temporary hemodialysis catheter in the right femoral vein. He received hemodialysis yesterday and plans for again today. Plan: The patient was seen and evaluated by Dr. Gan. The patient did end up requiring hemodialysis yesterday and the plans for again today. We will repeat a chest x-ray after the second treatment. Titrate down the FiO2 will maintaining O2 saturations greater than 90%. DC Solu-Medrol. Initiate prednisone burst and taper. Increase his activity as tolerated. We'll continue to follow. I, the cosigning physician, performed a history & physical examination of the patient. Lungs sounds with crackles in posterior bases. Diminished. Maintaining good O2 saturations in the 90s on 6 L high flow nasal cannula. I discussed the assessment and plan of care with my nurse practitioner, Sil Land. I attest to the above note as dictated by her.
[2018-04-17 12:08] LABS: Glucose,Whole Blood 258 mg/dL (75-99)
[2018-04-17 14:17] LABS: Glucose,Whole Blood 230 mg/dL (75-99)
--- NOTE | 2018-04-17 14:40 | PN ---
PROGRESS NOTE Patient is seen for followup for acute kidney injury. His renal function has continued to deteriorate. Patient was started on dialysis yesterday. This morning, he is sitting up and trying to walk with physical therapy. He states he is feeling slightly better. However, he still dozes off to sleep while sitting. Patient continues to have good urine output. PHYSICAL EXAMINATION: Blood pressure was 175/96, heart rate 66 per minute. He is afebrile. Examination of the heart, S1, S2. Examination of the lungs, decreased breath sounds at the bases. Minimal basilar crackles are heard. Abdomen is soft, nontender. Examination of the lower extremities shows chronic changes, trace edema noted bilaterally. ENVIRONMENTAL ENGINEER exam is grossly intact. LABS: Show sodium 143, potassium 5.4, BUN 108, serum creatinine 6.8. ASSESSMENT: 1. Acute kidney injury with progressive renal failure, mainly cardiorenal. Patient had a component of urinary retention. He currently has an indwelling Hernandez catheter with good urine output. He will be dialyzed again today. 2. Hyperkalemia associated with progressive renal failure as well as hyperglycemia, currently improved. Expect further improvement with hemodialysis today. 3. Chronic hypoxic respiratory failure secondary to chronic obstructive pulmonary disease with hypercapnia as well. 4. Acute chronic obstructive pulmonary disease exacerbation with purulent bronchitis, maintained on antibiotics. 5. Congestive heart failure exacerbation, mainly diastolic. However, previous ejection fraction was around 45%-50%. 6. History of depression. 7. Disproportionately elevated BUN secondary to steroids. PLAN: Continue off of IV fluids. Repeat hemodialysis today. Continue with indwelling Hernandez catheter. Encourage increased oral intake. MMODL / IJN: [id number] /
[2018-04-17] MEDS: HEPARIN SODIUM,PORCINE 5,000 UNIT/ML 1 ML VIAL SQ SCH (15:55)
[2018-04-17] MEDS ORDERED: DESMOPRESSIN INJ 30 MCG in SODIUM CHLORIDE 0.9% 50 ML IVPB ONE (16:00)
--- NOTE | 2018-04-17 16:18 | P.PN ---
Subjective Progress Note Date: 04/17/18 Interval history: This is a 57-year-old gentleman admitted with acute CHF exacerbation,COPD exacerbation with purulent tracheobronchitis and multiple other medical issues. Maintained on Zithromax, Rocephin, nebulized bronchodilators, systemic steroids. Complains of greenish yellowish sputum production, sputum culture pending. Maintained on BiPAP during the night, currently maintaining O2 sats of low 90s on 4 L nasal cannula. Afebrile. Echo reporting preserved LV function, EF 50-55%. Telemetry sinus rhythm. Diuresed initially with Lasix IV push ,Worsening renal function, creatinine 2. Lasix converted to oral. 04/11/2018 BiPAP at bedside, wore last night. Continues on Rocephin, Zithromax , systemic steroids, nebulized bronchodilators, oral Lasix. Maintaining O2 sats of high 80s on 4 L nasal cannula. Sleepy, arousable. Renal function worsening , up to 3.1. Nephrology consulted. Afebrile, normal WBC. Patient's creatinine has worsened because of which nephrology was consulted today patient was switched to oral Lasix. 04/13/2018 She is not feeling well today patient is quite fatigued and creatinine went up to 5.11 patient was started on IV fluids. Patient has rhonchus breath sounds lungs doesn't sound great either. Patient also requirements have gone up. A she is also comparing of increasing shortness of breath 04/14/2018 Patient respiratory status improved because of which patient is feeling better today. Her creatinine did get worse. Nephrology is following the patient and believe patient has cardiorenal syndrome. 04/15/2018 Patient is as his basic mental status, confirmed with the staff. Patient is breathing quietly. BMP: cr trending down today from 5.19 to 4.8, follow-up with creatinine; possible short-term dialysis is on hold now, as per nephrology recommendation. Renal ultrasound shows prominent prostate and he is on Hernandez catheter, with possible isoechoic lesion on the left kidney, and cyst on the right kidney, patient might benefit from urologic evaluation 04/16/18 more alert today, maintaining O2 sats in the mid 90s on 6 L high flow nasal cannula. Maintained on IV fluid hydration. BUN 140, creatinine 4.99, potassium 5.8. Hematocrit 60. Afebrile, sputum, urine cultures negative. Worsening renal function, vascular surgery consulted for dialysis cathete On 04/17/2018 patient is now being followed by Dr. Regalado's group her primary care. Patient states he was confused when he first arrived at the hospital and sent Dr. Garcia was his primary care doctor when patient is currently followed by Dr. Regalado. Patient had been seen and followed by Dr. Vo until clarification was made. Patient did receive dialysis last night 1 L off and will receive dialysis again today. Creatinine level 3.88 and bun 108. Nephrology services are following. Patient denies chest pain or shortness breath. Objective - Vital Signs Vital signs: Vital Signs Temp 97.3 F L 04/17/18 11:05 Pulse 72 04/17/18 12:22 Resp 18 04/17/18 15:52 BP 175/96 04/17/18 11:05 Pulse Ox 98 04/17/18 11:05 Intake & Output 04/16/18 04/17/18 04/17/18 18:59 06:59 18:59 Intake Total 475.259 386.016 397.466 Output Total 1200 3000 Balance -724.741 386.016 -2602.534 Weight 96 kg Intake: IV 100 360 0.9 360 Invasive Line 1 50 Intake, IV Titration 30.259 26.016 37.466 Amount Insulin Regular 100 unit 30.259 26.016 37.466 In Sodium Chloride 0.9% 100 ml @ As Directed IV . Q0M [facility] Rx#:[id number] Oral 345 360 Output: Urine 1200 3000 Stool 0 0 Other: Voiding Method Indwelling Catheter Indwelling Catheter Indwelling Catheter # Bowel Movements 0 0 - Exam Head normocephalic Neck supple Lungs clear to auscultation bilaterally no wheezing or crackles Heart regular rate and rhythm S1-S2, no rub or gallop Abdomen is soft nontender nondistended positive bowel sounds no hepatosplenomegaly Extremities no edema Neuro alert and orientated to 3 - Labs CBC & Chem 7: 04/17/18 08:32 04/17/18 08:32 Labs: Abnormal Lab Results - Last 24 Hours (Table) 04/16/18 04/16/18 04/16/18 Range/Units 15:50 16:15 17:07 WBC (3.8-10.6) k/uL RBC (4.30-5.90) m/uL Hgb (13.0-17.5) gm/dL Hct (39.0-53.0) % MCHC (31.0-37.0) g/dL RDW (11.5-15.5) % Plt Count (150-450) k/uL Neutrophils # (1.3-7.7) k/uL Lymphocytes # (1.0-4.8) k/uL Potassium (3.5-5.1) mmol/L BUN (9-20) mg/dL Creatinine (0.66-1.25) mg/dL Glucose (74-99) mg/dL POC Glucose (mg/dL) 111 H 114 H 100 H (75-99) mg/dL 04/16/18 04/16/18 04/16/18 Range/Units 18:01 20:05 22:11 WBC (3.8-10.6) k/uL RBC (4.30-5.90) m/uL Hgb (13.0-17.5) gm/dL Hct (39.0-53.0) % MCHC (31.0-37.0) g/dL RDW (11.5-15.5) % Plt Count (150-450) k/uL Neutrophils # (1.3-7.7) k/uL Lymphocytes # (1.0-4.8) k/uL Potassium (3.5-5.1) mmol/L BUN (9-20) mg/dL Creatinine (0.66-1.25) mg/dL Glucose (74-99) mg/dL POC Glucose (mg/dL) 133 H 201 H 181 H (75-99) mg/dL 04/17/18 04/17/18 04/17/18 Range/Units 00:03 01:48 03:58 WBC (3.8-10.6) k/uL RBC (4.30-5.90) m/uL Hgb (13.0-17.5) gm/dL Hct (39.0-53.0) % MCHC (31.0-37.0) g/dL RDW (11.5-15.5) % Plt Count (150-450) k/uL Neutrophils # (1.3-7.7) k/uL Lymphocytes # (1.0-4.8) k/uL Potassium (3.5-5.1) mmol/L BUN (9-20) mg/dL Creatinine (0.66-1.25) mg/dL Glucose (74-99) mg/dL POC Glucose (mg/dL) 165 H 134 H 135 H (75-99) mg/dL 18 18 04/17/18 Range/Units 05:58 08:16 08:32 WBC 15.8 H (3.8-10.6) k/uL RBC 6.56 H (4.30-5.90) m/uL Hgb 17.9 H (13.0-17.5) gm/dL Hct 58.2 H (39.0-53.0) % MCHC 30.7 L (31.0-37.0) g/dL RDW 16.3 H (11.5-15.5) % Plt Count 120 L (150-450) k/uL Neutrophils # 14.0 H (1.3-7.7) k/uL Lymphocytes # 0.9 L (1.0-4.8) k/uL Potassium (3.5-5.1) mmol/L BUN (9-20) mg/dL Creatinine (0.66-1.25) mg/dL Glucose (74-99) mg/dL POC Glucose (mg/dL) 155 H 151 H (75-99) mg/dL 04/17/18 04/17/18 04/17/18 Range/Units 08:32 10:32 10:34 WBC (3.8-10.6) k/uL RBC (4.30-5.90) m/uL Hgb (13.0-17.5) gm/dL Hct (39.0-53.0) % MCHC (31.0-37.0) g/dL RDW (11.5-15.5) % Plt Count (150-450) k/uL Neutrophils # (1.3-7.7) k/uL Lymphocytes # (1.0-4.8) k/uL Potassium 5.4 H (3.5-5.1) mmol/L BUN 108 H* (9-20) mg/dL Creatinine 3.88 H (0.66-1.25) mg/dL Glucose 172 H (74-99) mg/dL POC Glucose (mg/dL) 378 H 225 H (75-99) mg/dL 04/17/18 04/17/18 Range/Units 11:54 13:57 WBC (3.8-10.6) k/uL RBC (4.30-5.90) m/uL Hgb (13.0-17.5) gm/dL Hct (39.0-53.0) % MCHC (31.0-37.0) g/dL RDW (11.5-15.5) % Plt Count (150-450) k/uL Neutrophils # (1.3-7.7) k/uL Lymphocytes # (1.0-4.8) k/uL Potassium (3.5-5.1) mmol/L BUN (9-20) mg/dL Creatinine (0.66-1.25) mg/dL Glucose (74-99) mg/dL POC Glucose (mg/dL) 258 H 230 H (75-99) mg/dL Assessment and Plan Assessment: 1. Hypoxic, Hypercapnic respiratory failure multifactorial secondary to acute CHF exacerbation initially as well as acute COPD exacerbation. No pneumonia as per pulmonary. Patient remains on Solu-Medrol pulmonary services. Patient remains on high flow 6L. Patient remains on azithromycin per pulmonary. 2. Troponin 0.063, acute non-STEMI ruled out as per cardiology and attributed to cardiomyopathy ,oxygen supply and demand mismatch. 3. Acute on chronic renal failure, stage III, worsening, secondary to urinary retention, cardiorenal syndrome. ATN. Patient received dialysis access the right femoral vein per Dr. Pandey yesterday. Patient received dialysis with 1 L off yesterday and will receive dialysis again today per nephrology. Creatinine 3.88, bun 108 4. CAD,HTN, Hyperlipidemia. 5. Diabetes mellitus type 2, hemoglobin A1c 6.6 6. Chronic hypoxic respiratory failure 7. Chronic sleep apnea 8. Severe ischemic cardiomyopathy, AICD, EF 40-45% with acute on chronic systolic dysfunction. Current echo reporting EF 50-55%. Cardiology currently following on an as-needed basis 9. Bipolar 10. Ongoing nicotine dependence 11 .Right renal cyst, prominent prostate, and possible isoechoic lesion on the left kidney, in view of urinary retention , w/u as per urology. 12. Hyperkalemia. Potassium today 5.4 we'll continue to monitor closely patient received dialysis today. DVT prophylaxis SCD, patient did have low platelets. Will recheck tomorrow consider adding DVT heparin or Lovenox. GI prophylaxis Pepcid I performed an examination of the patient and discussed their management with the Nurse Practitioner. I have reviewed the Nurse Practitioner's notes and agree with the documented findings and plan of care
[2018-04-17 16:23] LABS: Glucose,Whole Blood 90 mg/dL (75-99)
[2018-04-17 16:23] LABS: Glucose,Whole Blood 153 mg/dL (75-99)
[2018-04-17 16:25] LABS: Hepatitis C IgG Antibody Non-Reactive (Non-Reactive)
[2018-04-17 17:27] LABS: Glucose,Whole Blood 123 mg/dL (75-99)
[2018-04-17 17:53] LABS: Glucose,Whole Blood 119 mg/dL (75-99)
--- NOTE | 2018-04-17 19:07 | XR ---
EXAMINATION TYPE: XR chest 1V portable DATE OF EXAM: 04/17/2018 COMPARISON: 04/13/2018 HISTORY: Short of breath TECHNIQUE: Single frontal view of the chest is obtained. FINDINGS: There is no heart failure. There is some linear density at the lung bases. There is left a xillary pacemaker with the lead tips in the right ventricle. There are chest leads. IMPRESSION: There is some linear mild infiltrate and atelectasis at the lung bases that is similar t o last exam. No heart failure.
[2018-04-17 19:11] LABS: Glucose,Whole Blood 169 mg/dL (75-99)
[2018-04-17 21:08] LABS: Glucose,Whole Blood 295 mg/dL (75-99)
[2018-04-17] MEDS: INSULIN DETEMIR 100 UNIT/ML 10 ML VIAL SQ SCH (21:14)
[2018-04-17] MEDS: QUEtiapine 100 MG TAB PO SCH (21:14)
[2018-04-17] MEDS: PRAVASTATIN SODIUM 40 MG TAB PO SCH (21:15)
[2018-04-17 23:06] LABS: Glucose,Whole Blood 215 mg/dL (75-99)
[2018-04-18 01:11] LABS: Glucose,Whole Blood 187 mg/dL (75-99)
[2018-04-18 03:08] LABS: Glucose,Whole Blood 139 mg/dL (75-99)
[2018-04-18 05:16] LABS: Glucose,Whole Blood 145 mg/dL (75-99)
[2018-04-18 06:02] LABS: Anisocytosis Slight; Basophils % (A) 0 %; Eosinophils # (A) 0.1 k/uL (0-0.7); Eosinophils % (A) 0 %; HGB 17.5 gm/dL (13.0-17.5); Lymphocytes # (A) 0.9 k/uL (1.0-4.8); Lymphocytes % (A) 6 %; MCH 27.3 pg (25.0-35.0); MCHC 31.4 g/dL (31.0-37.0); MCV 86.7 fL (80.0-100.0); Mean Platelet Volume 11.3; Monocytes # (A) 0.8 k/uL (0-1.0); Monocytes % (A) 5 %; Neutrophils # (A) 12.7 k/uL (1.3-7.7); Neutrophils % (A) 87 %; Platelet Count 122 k/uL (150-450); RBC 6.42 m/uL (4.30-5.90); RDW 16.2 % (11.5-15.5); WBC 14.5 k/uL (3.8-10.6)
[2018-04-18 06:09] LABS: HCT 55.7 % (39.0-53.0)
[2018-04-18 06:14] LABS: Albumin 2.9 g/dL (3.5-5.0); Calcium 8.7 mg/dL (8.4-10.2); Potassium 6.1 mmol/L (3.5-5.1); Total Bilirubin 0.4 mg/dL (0.2-1.3); Total Protein 5.1 g/dL (6.3-8.2)
[2018-04-18] MEDS: CARVEDILOL 12.5 MG TAB PO SCH ×2 (06:35→17:21)
[2018-04-18 07:15] LABS: Glucose,Whole Blood 149 mg/dL (75-99)
[2018-04-18] MEDS: IPRATROPIUM-ALBUTEROL 3 ML NEB INHALATION SCH ×4 (08:26→20:43)
[2018-04-18] MEDS: SYMBICORT 80-4.5 MCG INHALER INHALATION SCH ×2 (08:26→20:43)
[2018-04-18] MEDS: methylPREDNISolone SOD SUCCI 40 MG/ML 1 ML VIAL IV SCH (08:47)
[2018-04-18] MEDS: cefTRIAXone IN SWFI 1,000 MG/10 ML SYRINGE IVP SCH (08:47)
[2018-04-18] MEDS: GABAPENTIN 300 MG CAP PO SCH (08:47)
[2018-04-18] MEDS: hydrALAZINE HCL 50 MG TAB PO SCH ×3 (08:47→23:04)
[2018-04-18] MEDS: FAMOTIDINE 20 MG TAB PO SCH (08:48)
[2018-04-18] MEDS: ALLOPURINOL 100 MG TAB PO SCH (08:48)
[2018-04-18] MEDS: AZITHROMYCIN 500 MG TAB PO SCH (08:48)
[2018-04-18] MEDS: ESCITALOPRAM 20 MG TAB PO SCH (08:48)
[2018-04-18] MEDS: amLODIPine 5 MG TAB PO SCH (08:48)
[2018-04-18] MEDS: PREGABALIN 75 MG CAP PO SCH ×2 (08:52→23:04)
[2018-04-18] MEDS: INSULIN REGULAR 100 UNIT in SODIUM CHLORIDE 0.9% 100 ML IV SCH (09:01)
[2018-04-18] MEDS ORDERED: DESMOPRESSIN ACETATE 4 MCG/ML VIAL (MDV) IVPB STA (09:23)
[2018-04-18 09:28] LABS: Glucose,Whole Blood 190 mg/dL (75-99)
[2018-04-18] MEDS ORDERED: DESMOPRESSIN INJ 23 MCG in SODIUM CHLORIDE 0.9% 50 ML IVPB ONE (10:00)
[2018-04-18 11:05] LABS: Glucose,Whole Blood 159 mg/dL (75-99)
--- NOTE | 2018-04-18 12:28 | P.PN ---
Subjective Progress Note Date: 04/18/18 Interval history: This is a 57-year-old gentleman admitted with acute CHF exacerbation,COPD exacerbation with purulent tracheobronchitis and multiple other medical issues. Maintained on Zithromax, Rocephin, nebulized bronchodilators, systemic steroids. Complains of greenish yellowish sputum production, sputum culture pending. Maintained on BiPAP during the night, currently maintaining O2 sats of low 90s on 4 L nasal cannula. Afebrile. Echo reporting preserved LV function, EF 50-55%. Telemetry sinus rhythm. Diuresed initially with Lasix IV push ,Worsening renal function, creatinine 2. Lasix converted to oral. 04/11/2018 BiPAP at bedside, wore last night. Continues on Rocephin, Zithromax , systemic steroids, nebulized bronchodilators, oral Lasix. Maintaining O2 sats of high 80s on 4 L nasal cannula. Sleepy, arousable. Renal function worsening , up to 3.1. Nephrology consulted. Afebrile, normal WBC. Patient's creatinine has worsened because of which nephrology was consulted today patient was switched to oral Lasix. 04/13/2018 She is not feeling well today patient is quite fatigued and creatinine went up to 5.11 patient was started on IV fluids. Patient has rhonchus breath sounds lungs doesn't sound great either. Patient also requirements have gone up. A she is also comparing of increasing shortness of breath 04/14/2018 Patient respiratory status improved because of which patient is feeling better today. Her creatinine did get worse. Nephrology is following the patient and believe patient has cardiorenal syndrome. 04/15/2018 Patient is as his basic mental status, confirmed with the staff. Patient is breathing quietly. BMP: cr trending down today from 5.19 to 4.8, follow-up with creatinine; possible short-term dialysis is on hold now, as per nephrology recommendation. Renal ultrasound shows prominent prostate and he is on Hernandez catheter, with possible isoechoic lesion on the left kidney, and cyst on the right kidney, patient might benefit from urologic evaluation 04/16/18 more alert today, maintaining O2 sats in the mid 90s on 6 L high flow nasal cannula. Maintained on IV fluid hydration. BUN 140, creatinine 4.99, potassium 5.8. Hematocrit 60. Afebrile, sputum, urine cultures negative. Worsening renal function, vascular surgery consulted for dialysis cathete On 04/17/2018 patient is now being followed by Dr. Regalado's group her primary care. Patient states he was confused when he first arrived at the hospital and sent Dr. Garcia was his primary care doctor when patient is currently followed by Dr. Regalado. Patient had been seen and followed by Dr. Vo until clarification was made. Patient did receive dialysis last night 1 L off and will receive dialysis again today. Creatinine level 3.88 and bun 108. Nephrology services are following. Patient denies chest pain or shortness breath. On 04/18/2018 patient is currently resting comfortably in bed. Patient received a midline placed yesterday. Patient received dialysis on 04/16/2018, 04/17/2018 and per nursing staff patient is planning to get dialysis again today. Bun currently 81, creatinine 3.08. Potassium increased to 6.1. Nephrology services are following. Patient denies chest pain or shortness of breath at this time. She remains on 6 L high flow nasal cannula. Objective - Vital Signs Vital signs: Vital Signs Temp 97.3 F L 04/18/18 10:59 Pulse 63 04/18/18 10:59 Resp 18 04/18/18 10:59 BP 148/89 04/18/18 10:59 Pulse Ox 95 04/18/18 10:59 Intake & Output 04/17/18 04/18/18 04/18/18 18:59 06:59 18:59 Intake Total 410.183 117.442 372.800 Output Total 5000 1100 Balance -4589.817 -982.558 372.800 Weight 96 kg 77.5 kg Intake: IV 70 0.9 70 Intake, IV Titration 50.183 47.442 14.800 Amount Insulin Regular 100 unit 50.183 47.442 14.800 In Sodium Chloride 0.9% 100 ml @ As Directed IV . Q0M [facility] Rx#:[id number] Oral 360 358 Output: Urine 3000 1100 Uretheral (Hernandez) 700 Stool 0 0 Other 2000 Other: Voiding Method Indwelling Catheter Indwelling Catheter Indwelling Catheter # Bowel Movements 0 - Exam Head normocephalic Neck supple Lungs clear to auscultation bilaterally no wheezing or crackles Heart regular rate and rhythm S1-S2, no rub or gallop Abdomen is soft nontender nondistended positive bowel sounds no hepatosplenomegaly Extremities no edema Neuro alert and orientated to 3 - Labs CBC & Chem 7: 04/18/18 05:25 04/18/18 05:25 Labs: Abnormal Lab Results - Last 24 Hours (Table) 04/17/18 04/17/18 04/17/18 Range/Units 13:57 16:01 17:06 WBC (3.8-10.6) k/uL RBC (4.30-5.90) m/uL Hct (39.0-53.0) % RDW (11.5-15.5) % Plt Count (150-450) k/uL Neutrophils # (1.3-7.7) k/uL Lymphocytes # (1.0-4.8) k/uL Potassium (3.5-5.1) mmol/L BUN (9-20) mg/dL Creatinine (0.66-1.25) mg/dL Glucose (74-99) mg/dL POC Glucose (mg/dL) 230 H 153 H 123 H (75-99) mg/dL AST (17-59) U/L Total Protein (6.3-8.2) g/dL Albumin (3.5-5.0) g/dL 04/17/18 04/17/18 04/17/18 Range/Units 17:51 19:10 21:06 WBC (3.8-10.6) k/uL RBC (4.30-5.90) m/uL Hct (39.0-53.0) % RDW (11.5-15.5) % Plt Count (150-450) k/uL Neutrophils # (1.3-7.7) k/uL Lymphocytes # (1.0-4.8) k/uL Potassium (3.5-5.1) mmol/L BUN (9-20) mg/dL Creatinine (0.66-1.25) mg/dL Glucose (74-99) mg/dL POC Glucose (mg/dL) 119 H 169 H 295 H (75-99) mg/dL AST (17-59) U/L Total Protein (6.3-8.2) g/dL Albumin (3.5-5.0) g/dL 04/17/18 04/18/18 04/18/18 Range/Units 23:05 01:00 03:06 WBC (3.8-10.6) k/uL RBC (4.30-5.90) m/uL Hct (39.0-53.0) % RDW (11.5-15.5) % Plt Count (150-450) k/uL Neutrophils # (1.3-7.7) k/uL Lymphocytes # (1.0-4.8) k/uL Potassium (3.5-5.1) mmol/L BUN (9-20) mg/dL Creatinine (0.66-1.25) mg/dL Glucose (74-99) mg/dL POC Glucose (mg/dL) 215 H 187 H 139 H (75-99) mg/dL AST (17-59) U/L Total Protein (6.3-8.2) g/dL Albumin (3.5-5.0) g/dL 04/18/18 04/18/18 04/18/18 Range/Units 05:04 05:25 05:25 WBC 14.5 H (3.8-10.6) k/uL RBC 6.42 H (4.30-5.90) m/uL Hct 55.7 H (39.0-53.0) % RDW 16.2 H (11.5-15.5) % Plt Count 122 L (150-450) k/uL Neutrophils # 12.7 H (1.3-7.7) k/uL Lymphocytes # 0.9 L (1.0-4.8) k/uL Potassium 6.1 H (3.5-5.1) mmol/L BUN 81 H* (9-20) mg/dL Creatinine 3.08 H (0.66-1.25) mg/dL Glucose 176 H (74-99) mg/dL POC Glucose (mg/dL) 145 H (75-99) mg/dL AST 14 L (17-59) U/L Total Protein 5.1 L (6.3-8.2) g/dL Albumin 2.9 L (3.5-5.0) g/dL 04/18/18 04/18/18 04/18/18 Range/Units 07:14 09:13 11:03 WBC (3.8-10.6) k/uL RBC (4.30-5.90) m/uL Hct (39.0-53.0) % RDW (11.5-15.5) % Plt Count (150-450) k/uL Neutrophils # (1.3-7.7) k/uL Lymphocytes # (1.0-4.8) k/uL Potassium (3.5-5.1) mmol/L BUN (9-20) mg/dL Creatinine (0.66-1.25) mg/dL Glucose (74-99) mg/dL POC Glucose (mg/dL) 149 H 190 H 159 H (75-99) mg/dL AST (17-59) U/L Total Protein (6.3-8.2) g/dL Albumin (3.5-5.0) g/dL Assessment and Plan Assessment: 1. Hypoxic, Hypercapnic respiratory failure multifactorial secondary to acute CHF exacerbation initially as well as acute COPD exacerbation. No pneumonia as per pulmonary. Patient remains on [facility] pulmonary services. Patient remains on high flow 6L. Patient remains on azithromycin per pulmonary. 2. Troponin 0.063, acute non-STEMI ruled out as per cardiology and attributed to cardiomyopathy ,oxygen supply and demand mismatch. 3. Acute on chronic renal failure, stage III, worsening, secondary to urinary retention, cardiorenal syndrome. ATN. Patient received dialysis access the right femoral vein per Dr. Pandey yesterday. Patient received dialysis with 1 L off yesterday and will receive dialysis again today per nephrology. Creatinine 3.88, bun 108. Potassium increasing to 6.1 today. Per nursing staff patient will get dialysis again today. Nephrology services are following 4. CAD,HTN, Hyperlipidemia. 5. Diabetes mellitus type 2, hemoglobin A1c 6.6 6. Chronic hypoxic respiratory failure 7. Chronic sleep apnea 8. Severe ischemic cardiomyopathy, AICD, EF 40-45% with acute on chronic systolic dysfunction. Current echo reporting EF 50-55%. Cardiology currently following on an as-needed basis 9. Bipolar 10. Ongoing nicotine dependence 11 .Right renal cyst, prominent prostate, and possible isoechoic lesion on the left kidney, in view of urinary retention , w/u as per urology. 12. Hyperkalemia. Potassium today 5.4 we'll continue to monitor closely patient received dialysis today. Calcium 6.1 patient will receive dialysis today DVT prophylaxis SCD, patient did have low platelets. Will recheck tomorrow consider adding DVT heparin or Lovenox. GI prophylaxis Pepcid I performed an examination of the patient and discussed their management with the Nurse Practitioner. I have reviewed the Nurse Practitioner's notes and agree with the documented findings and plan of care
[2018-04-18 13:02] LABS: Glucose,Whole Blood 125 mg/dL (75-99)
--- NOTE | 2018-04-18 13:04 | P.PN ---
<Sil Land - Last Filed: 04/18/18 12:49> Subjective Progress Note Date: 04/18/18 Principal diagnosis: Acute exacerbation of chronic obstructive pulmonary disease, complicated by purulent tracheobronchitis. This 57-year-old -[place] male presenting with increased cough, thick purulent sputum production, and increased bronchospasm and wheezing for the past 1 week. The patient is known to me from previous hospitalizations. He has multiple medical problems and comorbidities. He is known to have COPD and addition to coronary artery disease, chronic renal failure with stage III chronic kidney disease, congestion heart failure with a previous ejection fraction of 40-45% and the patient has an AICD in place, he has also history of hypertension, hyperlipidemia, depression, bipolar disorder and diabetic peripheral neuropathy and diabetes mellitus. He has also history of obstructive sleep apnea. His current white cell count is at 8.1. His renal function isn't. The patient's creatinine is at 2.0. Repeat echocardiogram was done during this current admission showed improvement in LV function with an ejection fraction of 50-55% and the right ventricular systolic pressure was measured to be 24 and the patient's cardiac rhythm is sinus mechanism. The chest x-ray shows increased interstitial markings bilaterally consistent with pulmonary vascular congestion. Superimposed pneumonia cannot be completely excluded. No significant signs of fluid overload. No worsening in lower extremity edema. No signs of any fluid gain. He has been exposed to children who have had respiratory tract infection at home. No altered mentation. No pleurisy. No hemoptysis. The amount of mucus is been coughed out is copious and purulent. On 04/11/2018 patient seen in follow-up. Resting comfortably in bed, in no acute distress, a bit lethargic, but easily arousable. Pulse ox on 4 L per nasal cannula is 88-89%, patient is wearing BiPAP at bedtime. Afebrile, hemodynamically stable, remains on empiric antibiotics in the form of Zithromax , and Rocephin, seating oral diuretics, nebulized bronchodilators, systemic steroids. Lung sounds reveal diminished breath sounds with scattered rhonchi, and wheezes On 04/12/2018 patient seen again in follow-up on selective care unit. Resting in bed, in no acute distress, is on BiPAP support at night, on nasal cannula during the day, currently at 4 L. He states his breathing has not much improved , although physical exam reveals last bronchospastic lung sounds, and scattered rhonchi. Afebrile, no fever or chills, his chest x-ray has been reviewed, is resolution of the previous bibasilar infiltrates, and stable cardiomegaly. Patient remains on oral diuretics in the form of Lasix 40 mg once daily, and on today's labs there is evidence of worsening renal failure, and BUN is 98, creatinine is 4.61, nephrology has been consulted. WBC is 11.4, hemoglobin is 17.4. And sputum culture is pending. The patient seen again today 04/13/2018 in follow-up on the selective care unit. He is currently resting quite comfortably in bed. He is awake and alert in no acute distress. He is wearing the BiPAP throughout the evening to 4 L of nasal cannula during the day. He denies any worsening shortness of breath, cough or congestion. He's not very active. He needs increased encouragement to be up out of bed. Sputum culture reveals no growth. He is continued on DuoNeb inhalations, Symbicort, IV Solu-Medrol. Remains on empiric antibiotics in the form of ceftriaxone and azithromycin. On 04/14/2018, this patient's is not having any significant respiratory distress. He shortness of breath is improved as the patient COPD/CHF exacerbation is more optimized. However, as noted, the patient developed progressive worsening renal function and creatinine is on the rise. No signs of any significant fluid overload. His creatinine is worse. This is felt to be related to cardiorenal factors. He is known to have CHF/diastolic dysfunction he was diuresed and he was responding nicely to diuretics and subsequently his creatinine gradually came up from a baseline of 1.4 up to 5.1. His potassium level is at 5.8. No significant metabolic acidosis. His bicarb level is at 30. His chest x-ray is showing some retrocardiac infiltrate with mild infiltration of the right lung base. Otherwise no other acute abnormality is are seen. On 04/15/2018 patient seen again in follow-up on selective care unit. He is sitting in his bed, eating lunch, in no acute distress, and 6 L per nasal cannula with pulse ox of 94%, he is afebrile, hemodynamically stable, today's labs show slight improvement in his renal profile, BUN is stable at 135, creatinine is 4.82. Patient is receiving IV hydration of 0.9 normal saline at a rate of 75 ML per hour. Lung sounds are diminished, no wheezes or rhonchi were noted. Urine and sputum cultures remain negative, I count of 16.2, hemoglobin is 18.5, potassium is 5.8. No new chest x-rays today, patient does wear BiPAP at nighttime. The patient is seen again today 04/16/2018 in follow-up on the selective care unit. He is currently awake and alert in no acute distress. He denies any worsening shortness of breath, cough or congestion. He is maintaining good O2 saturations in the 90s on 6 L high flow nasal cannula. He is currently afebrile. Urine and sputum cultures are negative. White count 19.3. Hemoglobin 18.6. Hematocrit 60.0. Potassium 5.8. BUN 140. Creatinine 4.99. Nephrology is following. Appears to be acute kidney injury cardiorenal and secondary to urinary retention. Probably acute tubular necrosis as well. He is receiving fluids. Indwelling catheter in place. The patient is seen again today 04/17/2018 in follow-up on the selective care unit. He is awake and alert in no acute distress. He denies any worsening shortness of breath, cough or congestion. Continues to maintain good O2 saturations in the 90s on 6 L high flow nasal cannula. He did end up receiving hemodialysis catheter and hemodialysis yesterday and the plan is for repeat dialysis today which may improve his FiO2 requirements we'll repeat a chest x- ray following today's treatment. White count 15.8. Hemoglobin 17.9. Hematocrit 58.2. BUN 108. Creatinine 3.88. Potassium 5.4. The patient is seen again today 04/28/2018 in follow-up on the selective care unit. He is currently awake and alert in no acute distress. He does continue to require 6 L high flow nasal cannula to maintain O2 saturations in the 90s. His x-ray revealed some linear infiltrate and atelectasis at lung bases but no worse compared to previous. No evidence of heart failure. His been afebrile. Hemodynamically stable. He is making urine. He is on his third consecutive day of hemodialysis. BUN 81, creatinine 3.08. Potassium 6.1. He did have nonsustained ventricular tachycardia this morning. Objective - Vital Signs Vital signs: Vital Signs Temp 97.3 F L 04/18/18 10:59 Pulse 63 04/18/18 12:00 Resp 18 04/18/18 12:00 BP 148/89 04/18/18 10:59 Pulse Ox 95 04/18/18 10:59 Intake & Output 04/17/18 04/18/18 04/18/18 18:59 06:59 18:59 Intake Total 410.183 117.442 612.800 Output Total 5000 1100 0 Balance -4589.817 -982.558 612.800 Weight 96 kg 77.5 kg Intake: IV 70 0.9 70 Intake, IV Titration 50.183 47.442 14.800 Amount Insulin Regular 100 unit 50.183 47.442 14.800 In Sodium Chloride 0.9% 100 ml @ As Directed IV . Q0M [facility] Rx#:[id number] Oral 360 598 Output: Urine 3000 1100 Uretheral (Hernandez) 700 Stool 0 0 0 Other 2000 Other: Voiding Method Indwelling Catheter Indwelling Catheter Indwelling Catheter # Bowel Movements 0 - Exam Gen. appearance, comfortable awake no acute distress. Flat affect noted Head exam was generally normal. There was no scleral icterus or corneal arcus. Mucous membranes were moist. Neck was supple and without jugular venous distension, thyromegaly, or carotid bruits. Carotids were easily palpable bilaterally. There was no adenopathy. Lungs sounds are diminished bilaterally along with scattered rhonchi and scattered expiratory wheezes without the lung livingston bilaterally. Overall less bronchospastic compared to yesterday's exam Cardiac exam revealed the PMI to be normally situated and sized. The rhythm was regular and no extrasystoles were noted during several minutes of auscultation. The first and second heart sounds were normal and physiologic splitting of the second heart sound was noted. There were no murmurs, rubs, clicks, or gallops. Abdominal exam revealed normal bowel sounds. The abdomen was soft, non-tender, and without masses, organomegaly, or appreciable enlargement of the abdominal aorta. Examination of the extremities revealed easily palpable radial, femoral and pedal pulses. There is a new right femoral hemodialysis catheter in place. There was no cyanosis, clubbing or edema. Examination of the skin revealed no evidence of significant rashes, suspicious appearing nevi or other concerning lesions. Neurologically the patient is awake and alert and there is no focal neurological deficit. - Labs CBC & Chem 7: 04/18/18 05:25 04/18/18 05:25 Labs: Abnormal Lab Results - Last 24 Hours (Table) 04/17/18 04/17/18 04/17/18 Range/Units 13:57 16:01 17:06 WBC (3.8-10.6) k/uL RBC (4.30-5.90) m/uL Hct (39.0-53.0) % RDW (11.5-15.5) % Plt Count (150-450) k/uL Neutrophils # (1.3-7.7) k/uL Lymphocytes # (1.0-4.8) k/uL Potassium (3.5-5.1) mmol/L BUN (9-20) mg/dL Creatinine (0.66-1.25) mg/dL Glucose (74-99) mg/dL POC Glucose (mg/dL) 230 H 153 H 123 H (75-99) mg/dL AST (17-59) U/L Total Protein (6.3-8.2) g/dL Albumin (3.5-5.0) g/dL 04/17/18 04/17/18 04/17/18 Range/Units 17:51 19:10 21:06 WBC (3.8-10.6) k/uL RBC (4.30-5.90) m/uL Hct (39.0-53.0) % RDW (11.5-15.5) % Plt Count (150-450) k/uL Neutrophils # (1.3-7.7) k/uL Lymphocytes # (1.0-4.8) k/uL Potassium (3.5-5.1) mmol/L BUN (9-20) mg/dL Creatinine (0.66-1.25) mg/dL Glucose (74-99) mg/dL POC Glucose (mg/dL) 119 H 169 H 295 H (75-99) mg/dL AST (17-59) U/L Total Protein (6.3-8.2) g/dL Albumin (3.5-5.0) g/dL 04/17/18 04/18/1818 Range/Units 23:05 01:00 03:06 WBC (3.8-10.6) k/uL RBC (4.30-5.90) m/uL Hct (39.0-53.0) % RDW (11.5-15.5) % Plt Count (150-450) k/uL Neutrophils # (1.3-7.7) k/uL Lymphocytes # (1.0-4.8) k/uL Potassium (3.5-5.1) mmol/L BUN (9-20) mg/dL Creatinine (0.66-1.25) mg/dL Glucose (74-99) mg/dL POC Glucose (mg/dL) 215 H 187 H 139 H (75-99) mg/dL AST (17-59) U/L Total Protein (6.3-8.2) g/dL Albumin (3.5-5.0) g/dL 04/18/18 04/18/18 04/18/18 Range/Units 05:04 05:25 05:25 WBC 14.5 H (3.8-10.6) k/uL RBC 6.42 H (4.30-5.90) m/uL Hct 55.7 H (39.0-53.0) % RDW 16.2 H (11.5-15.5) % Plt Count 122 L (150-450) k/uL Neutrophils # 12.7 H (1.3-7.7) k/uL Lymphocytes # 0.9 L (1.0-4.8) k/uL Potassium 6.1 H (3.5-5.1) mmol/L BUN 81 H* (9-20) mg/dL Creatinine 3.08 H (0.66-1.25) mg/dL Glucose 176 H (74-99) mg/dL POC Glucose (mg/dL) 145 H (75-99) mg/dL AST 14 L (17-59) U/L Total Protein 5.1 L (6.3-8.2) g/dL Albumin 2.9 L (3.5-5.0) g/dL 04/18/18 04/18/18 04/18/18 Range/Units 07:14 09:13 11:03 WBC (3.8-10.6) k/uL RBC (4.30-5.90) m/uL Hct (39.0-53.0) % RDW (11.5-15.5) % Plt Count (150-450) k/uL Neutrophils # (1.3-7.7) k/uL Lymphocytes # (1.0-4.8) k/uL Potassium (3.5-5.1) mmol/L BUN (9-20) mg/dL Creatinine (0.66-1.25) mg/dL Glucose (74-99) mg/dL POC Glucose (mg/dL) 149 H 190 H 159 H (75-99) mg/dL AST (17-59) U/L Total Protein (6.3-8.2) g/dL Albumin (3.5-5.0) g/dL Assessment and Plan Assessment: Assessment: 1 acute COPD exacerbation with purulent tracheal bronchitis with production of copious amount of purulent respiratory secretions. Underlying pneumonia is excluded. Most recent chest x-ray reveals some linear mild infiltrate and atelectasis of the bases. No other acute cardiopulmonary process. 2 shortness of breath secondary to above 3 chronic hypoxic respiratory failurechronic hypercapnic respiratory failure secondary to COPD 4 diabetes mellitus 5 diabetic peripheral neuropathy 6 history of congestion heart failure with subsequent improvement in the left ventricular ejection fraction. The patient has had previous history of ischemic cardiomyopathy and has an AICD in place. Based on the most recent echocardiogram the ejection fraction is normalized with an EF around 50-65% without any significant valvular abnormalities 7 coronary artery disease 8 hypertension 9 hyperlipidemia 10 depression 11 previous history of respiratory failure requiring intubation mechanical ventilation 12 bipolar disorder 13 acute on chronic renal failure with stage III chronic kidney disease. Requiring hemodialysis the past 3 days. Current creatinine 3.08. 13 Hyperkalemia with nonsustained runs of ventricular tachycardia. Plan: The patient was seen and evaluated by Dr. Haile. Chest x-ray and labs reviewed. The patient did have dialysis the past 2 days and the plans for again today. Titrate down the FiO2 will maintaining O2 saturations greater than 90%. DC Solu-Medrol. Initiate prednisone burst and taper. Increase his activity as tolerated. We'll continue to follow. I, the cosigning physician, performed a history & physical examination of the patient. Lungs sounds with crackles in posterior bases. Diminished. Maintaining good O2 saturations in the 90s on 6 L high flow nasal cannula. I discussed the assessment and plan of care with my nurse practitioner, Sil Land. I attest to the above note as dictated by her. <West Haile - Last Filed: 04/18/18 14:20> Objective - Vital Signs Vital signs: Vital Signs Temp 97.3 F L 04/18/18 10:59 Pulse 63 04/18/18 12:00 Resp 18 04/18/18 12:00 BP 148/89 04/18/18 10:59 Pulse Ox 95 04/18/18 10:59 Intake & Output 04/17/18 04/18/18 04/18/18 18:59 06:59 18:59 Intake Total 410.183 117.442 732.800 Output Total 5000 1100 0 Balance -4589.817 -982.558 732.800 Weight 96 kg 77.5 kg Intake: IV 70 70 0.9 70 70 Intake, IV Titration 50.183 47.442 64.800 Amount Desmopressin Inj 23 mcg 50 In Sodium Chloride 0.9% 50 ml @ 200 mls/hr IVPB ONCE ONE Rx#:[id number] Insulin Regular 100 unit 50.183 47.442 14.800 In Sodium Chloride 0.9% 100 ml @ As Directed IV . Q0M [facility] Rx#:[id number] Oral 360 598 Output: Urine 3000 1100 Uretheral (Hernandez) 700 Stool 0 0 0 Other 2000 Other: Voiding Method Indwelling Catheter Indwelling Catheter Indwelling Catheter # Bowel Movements 0 - Labs CBC & Chem 7: 04/18/18 05:25 04/18/18 05:25 Labs: Abnormal Lab Results - Last 24 Hours (Table) 04/17/18 04/17/18 04/17/18 Range/Units 16:01 17:06 17:51 WBC (3.8-10.6) k/uL RBC (4.30-5.90) m/uL Hct (39.0-53.0) % RDW (11.5-15.5) % Plt Count (150-450) k/uL Neutrophils # (1.3-7.7) k/uL Lymphocytes # (1.0-4.8) k/uL Potassium (3.5-5.1) mmol/L BUN (9-20) mg/dL Creatinine (0.66-1.25) mg/dL Glucose (74-99) mg/dL POC Glucose (mg/dL) 153 H 123 H 119 H (75-99) mg/dL AST (17-59) U/L Total Protein (6.3-8.2) g/dL Albumin (3.5-5.0) g/dL 04/17/18 04/17/18 04/17/18 Range/Units 19:10 21:06 23:05 WBC (3.8-10.6) k/uL RBC (4.30-5.90) m/uL Hct (39.0-53.0) % RDW (11.5-15.5) % Plt Count (150-450) k/uL Neutrophils # (1.3-7.7) k/uL Lymphocytes # (1.0-4.8) k/uL Potassium (3.5-5.1) mmol/L BUN (9-20) mg/dL Creatinine (0.66-1.25) mg/dL Glucose (74-99) mg/dL POC Glucose (mg/dL) 169 H 295 H 215 H (75-99) mg/dL AST (17-59) U/L Total Protein (6.3-8.2) g/dL Albumin (3.5-5.0) g/dL 04/18/18 04/18/18 04/18/18 Range/Units 01:00 03:06 05:04 WBC (3.8-10.6) k/uL RBC (4.30-5.90) m/uL Hct (39.0-53.0) % RDW (11.5-15.5) % Plt Count (150-450) k/uL Neutrophils # (1.3-7.7) k/uL Lymphocytes # (1.0-4.8) k/uL Potassium (3.5-5.1) mmol/L BUN (9-20) mg/dL Creatinine (0.66-1.25) mg/dL Glucose (74-99) mg/dL POC Glucose (mg/dL) 187 H 139 H 145 H (75-99) mg/dL AST (17-59) U/L Total Protein (6.3-8.2) g/dL Albumin (3.5-5.0) g/dL 04/18/18 04/18/18 04/18/18 Range/Units 05:25 05:25 07:14 WBC 14.5 H (3.8-10.6) k/uL RBC 6.42 H (4.30-5.90) m/uL Hct 55.7 H (39.0-53.0) % RDW 16.2 H (11.5-15.5) % Plt Count 122 L (150-450) k/uL Neutrophils # 12.7 H (1.3-7.7) k/uL Lymphocytes # 0.9 L (1.0-4.8) k/uL Potassium 6.1 H (3.5-5.1) mmol/L BUN 81 H* (9-20) mg/dL Creatinine 3.08 H (0.66-1.25) mg/dL Glucose 176 H (74-99) mg/dL POC Glucose (mg/dL) 149 H (75-99) mg/dL AST 14 L (17-59) U/L Total Protein 5.1 L (6.3-8.2) g/dL Albumin 2.9 L (3.5-5.0) g/dL 04/18/18 04/18/18 04/18/18 Range/Units 09:13 11:03 12:57 WBC (3.8-10.6) k/uL RBC (4.30-5.90) m/uL Hct (39.0-53.0) % RDW (11.5-15.5) % Plt Count (150-450) k/uL Neutrophils # (1.3-7.7) k/uL Lymphocytes # (1.0-4.8) k/uL Potassium (3.5-5.1) mmol/L BUN (9-20) mg/dL Creatinine (0.66-1.25) mg/dL Glucose (74-99) mg/dL POC Glucose (mg/dL) 190 H 159 H 125 H (75-99) mg/dL AST (17-59) U/L Total Protein (6.3-8.2) g/dL Albumin (3.5-5.0) g/dL Assessment and Plan Assessment: A joint evaluation with HOTEL OR MOTEL MANAGER, overall pulmonary status is stable. The patient has taken at least 9 days of antibiotics. All of the antibiotics will be discontinued. Continue dialysis per nephrology. Pulmonate status is stable. We'll start tapering the steroids. We'll continue to follow.
--- NOTE | 2018-04-18 15:16 | P.PN ---
Progress Note - Text Progress Note Date: 04/18/18 This is an addendum to the cardiology progress note dictated, patient's abnormality in troponin likely secondary to type II ND. DNP note has been reviewed, I agree with a documented findings and plan of care. Patient was seen and examined.
[2018-04-18 16:39] LABS: Glucose,Whole Blood 227 mg/dL (75-99)
[2018-04-18] MEDS: INSULIN ASPART 100 UNIT/ML 1 ML 10 ML VIAL SQ SCH ×2 (17:21→23:03)
--- NOTE | 2018-04-18 18:08 | PN ---
PROGRESS NOTE Patient is seen for followup for acute kidney injury. Patient has had bleeding from his femoral catheter. He received DDAVP yesterday. There continues to be oozing today as well. He has an indwelling Hernandez catheter with good urine output. On examination, blood pressure is 148/89, heart rate 63 per minute. Patient is afebrile. EXAMINATION OF THE HEART: S1, S2. EXAMINATION OF LUNGS: Bilateral breath sounds are heard. ABDOMEN: Soft, non-tender. Examination of lower extremities shows no significant edema. NEONATAL NURSE PRACTITIONER exam is grossly intact. Patient is moving all 4 extremities. Labs from today show sodium 137, potassium of 6.1, BUN 81, serum creatinine 3.08. Albumin is 2.9. Hemoglobin of 17.5 g/dL. ASSESSMENT: 1. Acute kidney injury, currently maintained on dialysis. Patient has had 2 treatments. He continues to have good urine output. I will arrange for another treatment today, given his hyperkalemia. 2. Hyperkalemia associated with progressive renal failure. However, patient has had 2 consecutive days of dialysis treatments. He is maintained on insulin drip for hyperglycemia. His potassium remains elevated. There is no underlying retention, as he has an indwelling Hernandez catheter. I will start him on IV Lasix, which will also help with the hyperkalemia. 3. Cardiomyopathy with current echocardiogram showing ejection fraction about 50% to 55%. However, previous echo showed EF of 40% to 45%. 4. Chronic obstructive pulmonary disease exacerbation, currently improving. 5. Disproportionately elevated BUN secondary to steroids. 6. Generalized debility and flat affect. PLAN: Repeat hemodialysis today. Start IV Lasix. We will ask Dr. Pandey to switch to an IJ PermCath. Patient will need to continue with hemodialysis as outpatient, and we can continue to monitor for recovery of renal function as outpatient. MMODL / IJN: [id number] /
[2018-04-18 20:55] LABS: Glucose,Whole Blood 169 mg/dL (75-99)
[2018-04-18] MEDS: FUROSEMIDE 10 MG/ML 10 ML VIAL IV SCH (23:01)
[2018-04-18] MEDS: INSULIN DETEMIR 100 UNIT/ML 10 ML VIAL SQ SCH (23:03)
[2018-04-18] MEDS: PRAVASTATIN SODIUM 40 MG TAB PO SCH (23:04)
[2018-04-18] MEDS: QUEtiapine 100 MG TAB PO SCH (23:04)
[2018-04-19 05:57] LABS: Glucose,Whole Blood 115 mg/dL (75-99)
[2018-04-19 06:09] LABS: Albumin 2.8 g/dL (3.5-5.0); Anisocytosis Slight; Basophils # (A) 0.1 k/uL (0-0.2); Basophils % (A) 0 %; Calcium 8.7 mg/dL (8.4-10.2); Eosinophils % (A) 0 %; HCT 51.1 % (39.0-53.0); HGB 15.9 gm/dL (13.0-17.5); Lymphocytes # (A) 1.6 k/uL (1.0-4.8); Lymphocytes % (A) 12 %; MCH 26.9 pg (25.0-35.0); MCHC 31.1 g/dL (31.0-37.0); MCV 86.5 fL (80.0-100.0); Mean Platelet Volume 11.7; Monocytes # (A) 0.8 k/uL (0-1.0); Monocytes % (A) 6 %; Neutrophils # (A) 11.1 k/uL (1.3-7.7); Neutrophils % (A) 80 %; Potassium 5.5 mmol/L (3.5-5.1); RBC 5.91 m/uL (4.30-5.90); RDW 16.2 % (11.5-15.5); Total Bilirubin 0.4 mg/dL (0.2-1.3); Total Protein 4.9 g/dL (6.3-8.2); WBC 13.8 k/uL (3.8-10.6)
[2018-04-19 06:24] LABS: Large Platelets Present; Platelet Count 84 k/uL (150-450); Poikilocytosis (M) Present
[2018-04-19] MEDS: CARVEDILOL 12.5 MG TAB PO SCH ×2 (06:41→17:05)
[2018-04-19] MEDS: amLODIPine 5 MG TAB PO SCH (06:41)
[2018-04-19] MEDS ORDERED: INSULIN REGULAR 100 UNIT/ML VIAL IV ONE (07:19)
[2018-04-19] MEDS ORDERED: ALPRAZolam 0.25 MG TAB PO STA (07:19)
[2018-04-19] MEDS ORDERED: DEXTROSE 50%-WATER 50 ML SYRINGE IVP STA (07:20)
[2018-04-19] MEDS: INSULIN ASPART 100 UNIT/ML 1 ML 10 ML VIAL SQ SCH ×4 (07:41→21:26)
[2018-04-19] MEDS: GABAPENTIN 300 MG CAP PO SCH (07:58)
[2018-04-19] MEDS: ESCITALOPRAM 20 MG TAB PO SCH (07:58)
[2018-04-19] MEDS: PREGABALIN 75 MG CAP PO SCH ×2 (07:58→20:58)
[2018-04-19] MEDS: IPRATROPIUM-ALBUTEROL 3 ML NEB INHALATION SCH ×4 (08:42→20:23)
[2018-04-19] MEDS: SYMBICORT 80-4.5 MCG INHALER INHALATION SCH ×2 (08:42→20:23)
[2018-04-19] MEDS ORDERED: fentaNYL (PF) 50 MCG/ML 2 ML AMP IVP ONE (09:33)
[2018-04-19] MEDS ORDERED: SODIUM CHLORIDE 0.9% 1,000 ML IV ONE (09:34)
--- NOTE | 2018-04-19 10:15 | PCN ---
PROCEDURE NOTE PREOPERATIVE DIAGNOSIS: Acute on chronic failure. PROCEDURE PERFORMED: Exchange of temporary dialysis catheter because of the malfunctioning catheter. This patient was brought into the bottle labeler and we checked the labs. His hemoglobin is 5.9, platelet 84, and potassium 5.7. We decided to change the catheter and when hemoglobin and platelet count are stable, we will place a catheter. Right groin was prepped and draped in usual sterile manner and 1% lidocaine was infiltrated exit site of catheter and glidewire was passed under C-arm control and old catheter removed. A 20 cm temporary dialysis catheter was placed, flushed with heparin saline and hep- locked, secured with 3-0 nylon. Patient tolerated the procedure well. MMODL / IJN: [id number] /
--- NOTE | 2018-04-19 11:00 | PN ---
PROGRESS NOTE DATE OF SERVICE: 04/19/2018. HISTORY: Patient is seen for followup for acute kidney injury. Yesterday his catheter did not work very well and the patient is scheduled for IJ PermCath placement this morning. He is currently lying in bed, he is comfortable. He denies any significant complaints today. There continues to be some oozing at the femoral catheter. The patient received 2 doses DDAVP. His potassium remains elevated, although blood sugars are much better controlled. The patient has an indwelling Hernandez catheter with good urine output. EXAMINATION: This morning, blood pressure was 148/107, heart rate 75 per minute. He is afebrile. Examination of the heart S1, S2. Examination lungs bilateral breath sounds are heard. Abdomen is soft, nontender. Examination of lower extremities shows no significant edema. ADJUNCT SOCIOLOGY PROFESSOR exam is grossly intact. Patient moving all 4 extremities. LAB: Sodium 138, potassium 5.5, chloride 103, BUN 83, serum creatinine 3.0, hemoglobin 16.2 g/dL. ASSESSMENT: 1. Acute kidney injury, acute tubular necrosis (ATN) and cardiorenal, currently nonoliguric with good urine output. I will continue with the Lasix. The patient will be dialyzed again tomorrow. We will proceed with outpatient placement and monitor for recovery of renal function as outpatient. 2. Hyperkalemia associated with progressive renal failure. The patient was hyperglycemic previously, however, his blood sugars are much better controlled now. He is maintained on a low-potassium diet and there is no ongoing urine retention as he has an indwelling Hernandez catheter. Continue with the Lasix IV which will help with the hyperkalemia as well. We will give him a dose of insulin and half an amp of D50 today prior to OR. 3. Congestive heart failure, diastolic dysfunction, acute on top of chronic, currently improved. 4. Generalized debility. 5. Chronic obstructive pulmonary disease exacerbation with purulent tracheobronchitis. 6. Chronic hypoxic and hypercapnic respiratory failure from chronic obstructive pulmonary disease. PLAN: Continue with IV Lasix. Next dialysis will be tomorrow. Maintain patient on low- potassium diet. Continue to maintain good blood pressure control. Proceed with outpatient placement. We will continue to monitor for recovery of renal function as outpatient. MMODL / IJN: [id number] /
[2018-04-19] MEDS: FAMOTIDINE 20 MG TAB PO SCH (11:16)
[2018-04-19] MEDS: FUROSEMIDE 10 MG/ML 10 ML VIAL IV SCH ×2 (11:16→19:44)
[2018-04-19] MEDS: ALLOPURINOL 100 MG TAB PO SCH (11:16)
[2018-04-19] MEDS: predniSONE 20 MG TAB PO SCH (11:17)
[2018-04-19] MEDS: hydrALAZINE HCL 50 MG TAB PO SCH ×3 (11:17→19:47)
[2018-04-19 11:43] LABS: Glucose,Whole Blood 64 mg/dL (75-99)
--- NOTE | 2018-04-19 12:00 | P.PN ---
Subjective Progress Note Date: 04/19/18 Interval history: This is a 57-year-old gentleman admitted with acute CHF exacerbation,COPD exacerbation with purulent tracheobronchitis and multiple other medical issues. Maintained on Zithromax, Rocephin, nebulized bronchodilators, systemic steroids. Complains of greenish yellowish sputum production, sputum culture pending. Maintained on BiPAP during the night, currently maintaining O2 sats of low 90s on 4 L nasal cannula. Afebrile. Echo reporting preserved LV function, EF 50-55%. Telemetry sinus rhythm. Diuresed initially with Lasix IV push ,Worsening renal function, creatinine 2. Lasix converted to oral. 04/11/2018 BiPAP at bedside, wore last night. Continues on Rocephin, Zithromax , systemic steroids, nebulized bronchodilators, oral Lasix. Maintaining O2 sats of high 80s on 4 L nasal cannula. Sleepy, arousable. Renal function worsening , up to 3.1. Nephrology consulted. Afebrile, normal WBC. Patient's creatinine has worsened because of which nephrology was consulted today patient was switched to oral Lasix. 04/13/2018 She is not feeling well today patient is quite fatigued and creatinine went up to 5.11 patient was started on IV fluids. Patient has rhonchus breath sounds lungs doesn't sound great either. Patient also requirements have gone up. A she is also comparing of increasing shortness of breath 04/14/2018 Patient respiratory status improved because of which patient is feeling better today. Her creatinine did get worse. Nephrology is following the patient and believe patient has cardiorenal syndrome. 04/15/2018 Patient is as his basic mental status, confirmed with the staff. Patient is breathing quietly. BMP: cr trending down today from 5.19 to 4.8, follow-up with creatinine; possible short-term dialysis is on hold now, as per nephrology recommendation. Renal ultrasound shows prominent prostate and he is on Hernandez catheter, with possible isoechoic lesion on the left kidney, and cyst on the right kidney, patient might benefit from urologic evaluation 04/16/18 more alert today, maintaining O2 sats in the mid 90s on 6 L high flow nasal cannula. Maintained on IV fluid hydration. BUN 140, creatinine 4.99, potassium 5.8. Hematocrit 60. Afebrile, sputum, urine cultures negative. Worsening renal function, vascular surgery consulted for dialysis cathete On 04/17/2018 patient is now being followed by Dr. Regalado's group her primary care. Patient states he was confused when he first arrived at the hospital and sent Dr. Garcia was his primary care doctor when patient is currently followed by Dr. Regalado. Patient had been seen and followed by Dr. Vo until clarification was made. Patient did receive dialysis last night 1 L off and will receive dialysis again today. Creatinine level 3.88 and bun 108. Nephrology services are following. Patient denies chest pain or shortness breath. On 04/18/2018 patient is currently resting comfortably in bed. Patient received a midline placed yesterday. Patient received dialysis on 04/16/2018, 04/17/2018 and per nursing staff patient is planning to get dialysis again today. Bun currently 81, creatinine 3.08. Potassium increased to 6.1. Nephrology services are following. Patient denies chest pain or shortness of breath at this time. She remains on 6 L high flow nasal cannula. On 04/19/2018 patient is currently resting comfortably in bed with no complaints at this time. Patient received dialysis yesterday for the third day in a row. Dr. Flores for Nephrology has added Lasix 60 mg twice a day. Plans for dialysis tomorrow. Potassium remains elevated at 5.5. Patient received dose of insulin and half an amp of D50 per nephrology. Plans for IJ permacath per Dr. Pandey. Patient did have a run of V. tach yesterday during dialysis. Cardiology neurology has been reconsulted for case. Denies chest pain or shortness of breath. Denies nausea vomiting or diarrhea Objective - Vital Signs Vital signs: Vital Signs Temp 97.1 F L 04/19/18 07:15 Pulse 73 04/19/18 08:51 Resp 18 04/19/18 07:54 BP 148/107 04/19/18 07:15 Pulse Ox 97 04/19/18 08:43 Intake & Output 04/18/18 04/19/18 04/19/18 18:59 06:59 18:59 Intake Total 1622.800 10 Output Total 2200 1999 0 Balance -577.200 -2000 10 Weight 84 kg Intake: IV 70 10 0.9 70 Invasive Line 3 10 Intake, IV Titration 114.800 Amount Desmopressin Inj 23 mcg 100 In Sodium Chloride 0.9% 50 ml @ 200 mls/hr IVPB ONCE ONE Rx#:[id number] Insulin Regular 100 unit 14.800 In Sodium Chloride 0.9% 100 ml @ As Directed IV . Q0M [facility] Rx#:[id number] Oral 1438 Output: Urine 700 2000 Stool 0 0 0 Other 1500 Other: Voiding Method Indwelling Catheter Indwelling Catheter Indwelling Catheter # Bowel Movements 0 - Exam Head normocephalic Neck supple Lungs clear to auscultation bilaterally no wheezing or crackles Heart regular rate and rhythm S1-S2, no rub or gallop Abdomen is soft nontender nondistended positive bowel sounds no hepatosplenomegaly Extremities no edema Neuro alert and orientated to 3 - Labs CBC & Chem 7: 04/19/18 05:33 04/19/18 05:33 Labs: Abnormal Lab Results - Last 24 Hours (Table) 04/18/18 04/18/18 04/18/18 Range/Units 12:57 16:37 19:34 WBC (3.8-10.6) k/uL RBC (4.30-5.90) m/uL RDW (11.5-15.5) % Plt Count (150-450) k/uL Neutrophils # (1.3-7.7) k/uL Potassium 5.5 H (3.5-5.1) mmol/L Carbon Dioxide (22-30) mmol/L BUN (9-20) mg/dL Creatinine (0.66-1.25) mg/dL Glucose (74-99) mg/dL POC Glucose (mg/dL) 125 H 227 H (75-99) mg/dL AST (17-59) U/L Total Protein (6.3-8.2) g/dL Albumin (3.5-5.0) g/dL 04/18/18 04/19/18 04/19/18 Range/Units 20:53 05:33 05:33 WBC 13.8 H (3.8-10.6) k/uL RBC 5.91 H (4.30-5.90) m/uL RDW 16.2 H (11.5-15.5) % Plt Count 84 L (150-450) k/uL Neutrophils # 11.1 H (1.3-7.7) k/uL Potassium 5.5 H (3.5-5.1) mmol/L Carbon Dioxide 31 H (22-30) mmol/L BUN 83 H* (9-20) mg/dL Creatinine 3.00 H (0.66-1.25) mg/dL Glucose 119 H (74-99) mg/dL POC Glucose (mg/dL) 169 H (75-99) mg/dL AST 16 L (17-59) U/L Total Protein 4.9 L (6.3-8.2) g/dL Albumin 2.8 L (3.5-5.0) g/dL 04/19/18 04/19/18 Range/Units 05:56 11:41 WBC (3.8-10.6) k/uL RBC (4.30-5.90) m/uL RDW (11.5-15.5) % Plt Count (150-450) k/uL Neutrophils # (1.3-7.7) k/uL Potassium (3.5-5.1) mmol/L Carbon Dioxide (22-30) mmol/L BUN (9-20) mg/dL Creatinine (0.66-1.25) mg/dL Glucose (74-99) mg/dL POC Glucose (mg/dL) 115 H 64 L (75-99) mg/dL AST (17-59) U/L Total Protein (6.3-8.2) g/dL Albumin (3.5-5.0) g/dL Assessment and Plan Assessment: 1. Hypoxic, Hypercapnic respiratory failure multifactorial secondary to acute CHF exacerbation initially as well as acute COPD exacerbation. No pneumonia as per pulmonary. Patient remains on Solu-Medrol pulmonary services. Patient remains on high flow 6L. Patient remains on azithromycin per pulmonary. 2. Troponin 0.063, acute non-STEMI ruled out as per cardiology and attributed to cardiomyopathy ,oxygen supply and demand mismatch. 3. Acute on chronic renal failure, stage III, worsening, secondary to urinary retention, cardiorenal syndrome. ATN. Patient received dialysis access the right femoral vein per Dr. Pandey yesterday. Patient received dialysis with 1 L off yesterday and will receive dialysis again today per nephrology. Creatinine 3.88, bun 108. Potassium increasing to 6.1 today. Per nursing staff patient will get dialysis again today. Nephrology services are following. Per nephrology patient will get dialysis tomorrow. Patient will get IJ permacath per Dr. Pandey today. Patient did receive dialysis the past 3 days. 4. CAD,HTN, Hyperlipidemia. 5. Diabetes mellitus type 2, hemoglobin A1c 6.6 6. Chronic hypoxic respiratory failure 7. Chronic sleep apnea 8. Severe ischemic cardiomyopathy, AICD, EF 40-45% with acute on chronic systolic dysfunction. Current echo reporting EF 50-55%. Cardiology currently following on an as-needed basis 9. Bipolar 10. Ongoing nicotine dependence 11 .Right renal cyst, prominent prostate, and possible isoechoic lesion on the left kidney, in view of urinary retention , w/u as per urology. Patient currently has adequate urine output 12. Hyperkalemia. Potassium today 5.4 we'll continue to monitor closely patient received dialysis today. Calcium 6.1 patient will receive dialysis today. Potassium 5.5 today per nephrology will receive a dose of insulin and D50. Nephrology has added Lasix 60 mg twice a day. 13. Thrombocytopenia. Platelets 84. Appears to be a chronic issue for patient. We'll continue to monitor closely 14. Episode of ventricular tachycardia during dialysis. Could possibly be related to elevated potassium level. Cardiology services have been reconsulted DVT prophylaxis SCD, patient did have low platelets. Will recheck tomorrow consider adding DVT heparin or Lovenox. GI prophylaxis Pepcid I performed an examination of the patient and discussed their management with the Nurse Practitioner. I have reviewed the Nurse Practitioner's notes and agree with the documented findings and plan of care
[2018-04-19 12:08] LABS: Glucose,Whole Blood 72 mg/dL (75-99)
--- NOTE | 2018-04-19 12:26 | IR ---
EXAMINATION TYPE: IR cvc insert non tunneled DATE OF EXAM: 04/19/2018 COMPARISON: NONE HISTORY: Dialysis catheter exchange Fluoroscopy support supplied to the referring clinician. See dictated report from vascular surgery, 174 intraoperative C-arm images, 0.5 minutes fluoroscopy time
[2018-04-19 14:07] VITALS: BMI 23.8
--- NOTE | 2018-04-19 14:51 | PN ---
PROGRESS NOTE This patient's chart was reviewed. This patient has a history of ischemic cardiomyopathy, status post AICD placement, and patient developed acute on chronic renal failure. Patient is currently getting dialysis. Patient had one run of non- sustained ventricular tachycardia yesterday, for which patient was asymptomatic. Patient currently is getting Lopressor 25 mg b.i.d. At present patient remains asymptomatic. He is not in any respiratory distress. Blood pressure is 148/93 mmHg. First and second heart sounds are heard. Respirations are not labored. We will continue the current medications. MMODL / IJN: [id number] /
--- NOTE | 2018-04-19 15:41 | P.PN ---
Subjective Progress Note Date: 04/19/18 This 57-year-old -[place] male presenting with increased cough, thick purulent sputum production, and increased bronchospasm and wheezing for the past 1 week. The patient is known to me from previous hospitalizations. He has multiple medical problems and comorbidities. He is known to have COPD and addition to coronary artery disease, chronic renal failure with stage III chronic kidney disease, congestion heart failure with a previous ejection fraction of 40-45% and the patient has an AICD in place, he has also history of hypertension, hyperlipidemia, depression, bipolar disorder and diabetic peripheral neuropathy and diabetes mellitus. He has also history of obstructive sleep apnea. His current white cell count is at 8.1. His renal function isn't. The patient's creatinine is at 2.0. Repeat echocardiogram was done during this current admission showed improvement in LV function with an ejection fraction of 50-55% and the right ventricular systolic pressure was measured to be 24 and the patient's cardiac rhythm is sinus mechanism. The chest x-ray shows increased interstitial markings bilaterally consistent with pulmonary vascular congestion. Superimposed pneumonia cannot be completely excluded. No significant signs of fluid overload. No worsening in lower extremity edema. No signs of any fluid gain. He has been exposed to children who have had respiratory tract infection at home. No altered mentation. No pleurisy. No hemoptysis. The amount of mucus is been coughed out is copious and purulent. On 04/11/2018 patient seen in follow-up. Resting comfortably in bed, in no acute distress, a bit lethargic, but easily arousable. Pulse ox on 4 L per nasal cannula is 88-89%, patient is wearing BiPAP at bedtime. Afebrile, hemodynamically stable, remains on empiric antibiotics in the form of Zithromax , and Rocephin, seating oral diuretics, nebulized bronchodilators, systemic steroids. Lung sounds reveal diminished breath sounds with scattered rhonchi, and wheezes On 04/12/2018 patient seen again in follow-up on selective care unit. Resting in bed, in no acute distress, is on BiPAP support at night, on nasal cannula during the day, currently at 4 L. He states his breathing has not much improved , although physical exam reveals last bronchospastic lung sounds, and scattered rhonchi. Afebrile, no fever or chills, his chest x-ray has been reviewed, is resolution of the previous bibasilar infiltrates, and stable cardiomegaly. Patient remains on oral diuretics in the form of Lasix 40 mg once daily, and on today's labs there is evidence of worsening renal failure, and BUN is 98, creatinine is 4.61, nephrology has been consulted. WBC is 11.4, hemoglobin is 17.4. And sputum culture is pending. The patient seen again today 04/13/2018 in follow-up on the selective care unit. He is currently resting quite comfortably in bed. He is awake and alert in no acute distress. He is wearing the BiPAP throughout the evening to 4 L of nasal cannula during the day. He denies any worsening shortness of breath, cough or congestion. He's not very active. He needs increased encouragement to be up out of bed. Sputum culture reveals no growth. He is continued on DuoNeb inhalations, Symbicort, IV Solu-Medrol. Remains on empiric antibiotics in the form of ceftriaxone and azithromycin. On 04/14/2018, this patient's is not having any significant respiratory distress. He shortness of breath is improved as the patient COPD/CHF exacerbation is more optimized. However, as noted, the patient developed progressive worsening renal function and creatinine is on the rise. No signs of any significant fluid overload. His creatinine is worse. This is felt to be related to cardiorenal factors. He is known to have CHF/diastolic dysfunction he was diuresed and he was responding nicely to diuretics and subsequently his creatinine gradually came up from a baseline of 1.4 up to 5.1. His potassium level is at 5.8. No significant metabolic acidosis. His bicarb level is at 30. His chest x-ray is showing some retrocardiac infiltrate with mild infiltration of the right lung base. Otherwise no other acute abnormality is are seen. On 04/15/2018 patient seen again in follow-up on selective care unit. He is sitting in his bed, eating lunch, in no acute distress, and 6 L per nasal cannula with pulse ox of 94%, he is afebrile, hemodynamically stable, today's labs show slight improvement in his renal profile, BUN is stable at 135, creatinine is 4.82. Patient is receiving IV hydration of 0.9 normal saline at a rate of 75 ML per hour. Lung sounds are diminished, no wheezes or rhonchi were noted. Urine and sputum cultures remain negative, I count of 16.2, hemoglobin is 18.5, potassium is 5.8. No new chest x-rays today, patient does wear BiPAP at nighttime. The patient is seen again today 04/16/2018 in follow-up on the selective care unit. He is currently awake and alert in no acute distress. He denies any worsening shortness of breath, cough or congestion. He is maintaining good O2 saturations in the 90s on 6 L high flow nasal cannula. He is currently afebrile. Urine and sputum cultures are negative. White count 19.3. Hemoglobin 18.6. Hematocrit 60.0. Potassium 5.8. BUN 140. Creatinine 4.99. Nephrology is following. Appears to be acute kidney injury cardiorenal and secondary to urinary retention. Probably acute tubular necrosis as well. He is receiving fluids. Indwelling catheter in place. The patient is seen again today 04/17/2018 in follow-up on the selective care unit. He is awake and alert in no acute distress. He denies any worsening shortness of breath, cough or congestion. Continues to maintain good O2 saturations in the 90s on 6 L high flow nasal cannula. He did end up receiving hemodialysis catheter and hemodialysis yesterday and the plan is for repeat dialysis today which may improve his FiO2 requirements we'll repeat a chest x- ray following today's treatment. White count 15.8. Hemoglobin 17.9. Hematocrit 58.2. BUN 108. Creatinine 3.88. Potassium 5.4. The patient is seen again today 04/28/2018 in follow-up on the selective care unit. He is currently awake and alert in no acute distress. He does continue to require 6 L high flow nasal cannula to maintain O2 saturations in the 90s. His x-ray revealed some linear infiltrate and atelectasis at lung bases but no worse compared to previous. No evidence of heart failure. His been afebrile. Hemodynamically stable. He is making urine. He is on his third consecutive day of hemodialysis. BUN 81, creatinine 3.08. Potassium 6.1. He did have nonsustained ventricular tachycardia this morning. On today's evaluation of 04/19/2018, the patient is resting comfortably in bed. He underwent a temporary dialysis catheter exchanges due to malfunctioning. The patient is producing adequate amount of urine output. He is being considered for another dialysis tomorrow. Nephrology is on the case. The patient is currently on Lasix 60 mg IV twice a day. Potassium level was at 5.5. The patient was given D50 sugar along with insulin. Vascular surgeries on the case. Nephrology is on the case. Overall pulmonary status is stable. No signs of any shortness of breath. No chest pain. No angina. No swelling lower extremities. No nausea or vomiting. No emesis. No signs of any GI bleed. Objective - Vital Signs Vital signs: Vital Signs Temp 97.2 F L 04/19/18 11:00 Pulse 68 04/19/18 12:15 Resp 18 04/19/18 12:00 BP 148/93 04/19/18 11:00 Pulse Ox 96 04/19/18 11:00 Intake & Output 04/18/18 04/19/18 04/19/18 18:59 06:59 18:59 Intake Total 1622.800 250 Output Total 2200 2000 0 Balance -577.200 -2000 250 Weight 84 kg 84 kg Intake: IV 70 10 0.9 70 Invasive Line 3 10 Intake, IV Titration 114.800 Amount Desmopressin Inj 23 mcg 100 In Sodium Chloride 0.9% 50 ml @ 200 mls/hr IVPB ONCE ONE Rx#:[id number] Insulin Regular 100 unit 14.800 In Sodium Chloride 0.9% 100 ml @ As Directed IV . Q0M [facility] Rx#:[id number] Oral 1438 240 Output: Urine 700 2000 Stool 0 0 0 Other 1500 Other: Voiding Method Indwelling Catheter Indwelling Catheter Indwelling Catheter # Bowel Movements 0 - Exam Gen. appearance, comfortable awake no acute distress. Flat affect noted Head exam was generally normal. There was no scleral icterus or corneal arcus. Mucous membranes were moist. Neck was supple and without jugular venous distension, thyromegaly, or carotid bruits. Carotids were easily palpable bilaterally. There was no adenopathy. Lungs sounds are diminished bilaterally along with scattered rhonchi and scattered expiratory wheezes without the lung [place] bilaterally. Cardiac exam revealed the PMI to be normally situated and sized. The rhythm was regular and no extrasystoles were noted during several minutes of auscultation. The first and second heart sounds were normal and physiologic splitting of the second heart sound was noted. There were no murmurs, rubs, clicks, or gallops. Abdominal exam revealed normal bowel sounds. The abdomen was soft, non-tender, and without masses, organomegaly, or appreciable enlargement of the abdominal aorta. Examination of the extremities revealed easily palpable radial, femoral and pedal pulses. There is a new right femoral hemodialysis catheter in place. There was no cyanosis, clubbing or edema. Examination of the skin revealed no evidence of significant rashes, suspicious appearing nevi or other concerning lesions. Neurologically the patient is awake and alert and there is no focal neurological deficit. - Labs CBC & Chem 7: 04/19/18 05:33 04/19/18 11:33 Labs: Abnormal Lab Results - Last 24 Hours (Table) 04/18/18 04/18/18 04/18/18 Range/Units 16:37 19:34 20:53 WBC (3.8-10.6) k/uL RBC (4.30-5.90) m/uL RDW (11.5-15.5) % Plt Count (150-450) k/uL Neutrophils # (1.3-7.7) k/uL Potassium 5.5 H (3.5-5.1) mmol/L Carbon Dioxide (22-30) mmol/L BUN (9-20) mg/dL Creatinine (0.66-1.25) mg/dL Glucose (74-99) mg/dL POC Glucose (mg/dL) 227 H 169 H (75-99) mg/dL AST (17-59) U/L Total Protein (6.3-8.2) g/dL Albumin (3.5-5.0) g/dL 04/19/18 04/19/18 04/19/18 Range/Units 05:33 05:33 05:56 WBC 13.8 H (3.8-10.6) k/uL RBC 5.91 H (4.30-5.90) m/uL RDW 16.2 H (11.5-15.5) % Plt Count 84 L (150-450) k/uL Neutrophils # 11.1 H (1.3-7.7) k/uL Potassium 5.5 H (3.5-5.1) mmol/L Carbon Dioxide 31 H (22-30) mmol/L BUN 83 H* (9-20) mg/dL Creatinine 3.00 H (0.66-1.25) mg/dL Glucose 119 H (74-99) mg/dL POC Glucose (mg/dL) 115 H (75-99) mg/dL AST 16 L (17-59) U/L Total Protein 4.9 L (6.3-8.2) g/dL Albumin 2.8 L (3.5-5.0) g/dL 04/19/18 04/19/18 Range/Units 11:41 12:02 WBC (3.8-10.6) k/uL RBC (4.30-5.90) m/uL RDW (11.5-15.5) % Plt Count (150-450) k/uL Neutrophils # (1.3-7.7) k/uL Potassium (3.5-5.1) mmol/L Carbon Dioxide (22-30) mmol/L BUN (9-20) mg/dL Creatinine (0.66-1.25) mg/dL Glucose (74-99) mg/dL POC Glucose (mg/dL) 64 L 72 L (75-99) mg/dL AST (17-59) U/L Total Protein (6.3-8.2) g/dL Albumin (3.5-5.0) g/dL Assessment and Plan Plan: 1 acute COPD exacerbation with purulent tracheal bronchitis with production of copious amount of purulent respiratory secretions, symptoms of recovered and the patient is currently on a prednisone burst taper in addition to antibiotics have been discontinued as the patient completed the course of treatment. 2 shortness of breath secondary to above, improving 3 chronic hypoxic respiratory failurechronic hypercapnic respiratory failure secondary to COPD 4 diabetes mellitus 5 diabetic peripheral neuropathy 6 history of congestion heart failure with subsequent improvement in the left ventricular ejection fraction. The patient has had previous history of ischemic cardiomyopathy and has an AICD in place. Based on the most recent echocardiogram the ejection fraction is normalized with an EF around 50-65% without any significant valvular abnormalities 7 coronary artery disease 8 hypertension 9 hyperlipidemia 10 depression 11 previous history of respiratory failure requiring intubation mechanical ventilation 12 bipolar disorder 13 acute on chronic renal failure with stage III chronic kidney disease. The patient is requiring dialysis. Is producing urine output with Lasix. Dialysis catheter has been inserted. Nephrology is on the case. Possible repeat dialysis tomorrow. 13 Hyperkalemia with nonsustained runs of ventricular tachycardia. The potassium level has been treated and it's improved. The plan is to monitor the patient's renal status. Continue diuretics. Continue urine output. Continue potassium level monitoring. The patient is being seen by nephrology and possibly would have another dialysis tomorrow. The patient is likely going to get an IJ permacath today. No other new complaints. Overall [facility] primary status is stable. Will follow.
[2018-04-19 16:33] LABS: Glucose,Whole Blood 231 mg/dL (75-99)
[2018-04-19] MEDS: HYDROcodone/APAP 5-325MG 1 EACH TAB PO PRN (19:44)
[2018-04-19] MEDS: QUEtiapine 100 MG TAB PO SCH (20:58)
[2018-04-19] MEDS: PRAVASTATIN SODIUM 40 MG TAB PO SCH (20:58)
[2018-04-19 21:05] LABS: Glucose,Whole Blood 303 mg/dL (75-99)
[2018-04-19] MEDS: INSULIN DETEMIR 100 UNIT/ML 10 ML VIAL SQ SCH (21:26)
[2018-04-20 05:53] LABS: Glucose,Whole Blood 105 mg/dL (75-99)
[2018-04-20] MEDS: INSULIN ASPART 100 UNIT/ML 1 ML 10 ML VIAL SQ SCH ×4 (05:59→21:11)
[2018-04-20 06:09] LABS: Basophils % (A) 0 %; Eosinophils % (A) 0 %; HCT 50.9 % (39.0-53.0); HGB 16.2 gm/dL (13.0-17.5); Lymphocytes # (A) 1.6 k/uL (1.0-4.8); Lymphocytes % (A) 18 %; MCH 27.3 pg (25.0-35.0); MCHC 31.8 g/dL (31.0-37.0); MCV 85.9 fL (80.0-100.0); Mean Platelet Volume 11.8; Monocytes # (A) 0.9 k/uL (0-1.0); Monocytes % (A) 10 %; Neutrophils # (A) 6.2 k/uL (1.3-7.7); Neutrophils % (A) 70 %; RBC 5.92 m/uL (4.30-5.90); RDW 15.9 % (11.5-15.5)
[2018-04-20 06:19] LABS: Platelet Count 81 k/uL (150-450)
[2018-04-20 06:20] LABS: Albumin 2.8 g/dL (3.5-5.0); Calcium 8.7 mg/dL (8.4-10.2); Potassium 5.3 mmol/L (3.5-5.1); Total Bilirubin 0.4 mg/dL (0.2-1.3); Total Protein 4.9 g/dL (6.3-8.2)
[2018-04-20] MEDS: CARVEDILOL 12.5 MG TAB PO SCH ×2 (06:30→16:43)
[2018-04-20] MEDS: IPRATROPIUM-ALBUTEROL 3 ML NEB INHALATION SCH ×4 (08:01→19:41)
[2018-04-20] MEDS: SYMBICORT 80-4.5 MCG INHALER INHALATION SCH ×2 (08:01→19:41)
[2018-04-20] MEDS ORDERED: DESMOPRESSIN ACETATE 4 MCG/ML VIAL (MDV) IVPB STA (08:48)
[2018-04-20] MEDS ORDERED: SODIUM CHLORIDE 0.9% IVPB ONE (09:00)
[2018-04-20] MEDS ORDERED: DESMOPRESSIN IVPB ONE (09:00)
[2018-04-20] MEDS: FUROSEMIDE 10 MG/ML 10 ML VIAL IV SCH ×2 (09:00→19:35)
--- NOTE | 2018-04-20 09:06 | P.PN ---
Subjective Patient is seen in follow-up for acute kidney injury on chronic kidney disease. He is currently maintained on hemodialysis. His femoral catheter was malfunctioning and was exchanged yesterday. Currently resting in bed. He is nonoliguric. Denies chest pain or shortness of breath. Vital signs are stable. General: The patient appeared well nourished and normally developed. HEENT: Head exam is unremarkable. Neck is without jugular venous distension. LUNGS: Lungs are clear to auscultation and percussion. Breath sounds decreased. HEART: Rate and Rhythm are regular. First and second heart sounds normal. No murmurs, rubs or gallops. ABDOMEN: Abdominal exam reveals normal bowel sounds. Non-tender and non- distended. No evidence of peritonitis. EXTREMITITES: No clubbing, cyanosis, or edema. Objective - Vital Signs Vital signs: Vital Signs Temp 98.3 F 04/20/18 04:00 Pulse 80 04/20/18 08:13 Resp 20 04/20/18 04:00 BP 152/96 04/20/18 04:00 Pulse Ox 95 04/20/18 04:00 Intake & Output 04/19/18 04/20/18 04/20/18 18:59 06:59 18:59 Intake Total 770 Output Total 1800 1425 Balance -1030 -1425 Weight 84 kg 72 kg Intake: IV 170 0.9 160 Invasive Line 3 10 Oral 600 Output: Urine 1800 1425 Stool 0 0 Other: Voiding Method Indwelling Catheter Indwelling Catheter - Labs CBC & Chem 7: 04/20/18 05:31 04/20/18 05:31 Labs: Abnormal Lab Results - Last 24 Hours (Table) 04/19/18 04/19/18 04/19/18 Range/Units 11:41 12:02 16:31 RBC (4.30-5.90) m/uL RDW (11.5-15.5) % Plt Count (150-450) k/uL Potassium (3.5-5.1) mmol/L Carbon Dioxide (22-30) mmol/L BUN (9-20) mg/dL Creatinine (0.66-1.25) mg/dL Glucose (74-99) mg/dL POC Glucose (mg/dL) 64 L 72 L 231 H (75-99) mg/dL Total Protein (6.3-8.2) g/dL Albumin (3.5-5.0) g/dL 04/19/18 04/20/18 04/20/18 Range/Units 21:03 05:31 05:31 RBC 5.92 H (4.30-5.90) m/uL RDW 15.9 H (11.5-15.5) % Plt Count 81 L (150-450) k/uL Potassium 5.3 H (3.5-5.1) mmol/L Carbon Dioxide 31 H (22-30) mmol/L BUN 92 H* (9-20) mg/dL Creatinine 3.40 H (0.66-1.25) mg/dL Glucose 112 H (74-99) mg/dL POC Glucose (mg/dL) 303 H (75-99) mg/dL Total Protein 4.9 L (6.3-8.2) g/dL Albumin 2.8 L (3.5-5.0) g/dL 04/20/18 Range/Units 05:52 RBC (4.30-5.90) m/uL RDW (11.5-15.5) % Plt Count (150-450) k/uL Potassium (3.5-5.1) mmol/L Carbon Dioxide (22-30) mmol/L BUN (9-20) mg/dL Creatinine (0.66-1.25) mg/dL Glucose (74-99) mg/dL POC Glucose (mg/dL) 105 H (75-99) mg/dL Total Protein (6.3-8.2) g/dL Albumin (3.5-5.0) g/dL Assessment and Plan Plan: Assessment: 1. Acute kidney injury secondary to ATN secondary to cardiorenal syndrome. Currently maintained on hemodialysis. Last hemodialysis was on . 2. Chronic kidney disease stage III with baseline creatinine in the range of 1.4-1.8. 3. Diastolic CHF. 4. Volume overload. Improved with ultrafiltration and diuresis. 5. Hyperkalemia secondary to acute kidney injury. Hyperglycemia has resolved. No significant metabolic acidosis. 6. Generalized debility. 7. COPD exacerbation with purulent tracheobronchitis. Pulmonology following. Plan: Hemodialysis today. Continue Lasix 60 mg IV twice daily. Maintain low potassium diet. I will repeat another dose of IV DDAVP due to oozing from the catheter site. Awaits permacath placement. Continue to monitor for renal recovery as an outpatient.
[2018-04-20 12:06] LABS: Glucose,Whole Blood 238 mg/dL (75-99)
--- NOTE | 2018-04-20 12:20 | P.PN ---
Subjective Progress Note Date: 04/20/18 Principal diagnosis: Acute COPD exacerbation with purulent tracheobronchitis This 57-year-old -[place] male presenting with increased cough, thick purulent sputum production, and increased bronchospasm and wheezing for the past 1 week. The patient is known to me from previous hospitalizations. He has multiple medical problems and comorbidities. He is known to have COPD and addition to coronary artery disease, chronic renal failure with stage III chronic kidney disease, congestion heart failure with a previous ejection fraction of 40-45% and the patient has an AICD in place, he has also history of hypertension, hyperlipidemia, depression, bipolar disorder and diabetic peripheral neuropathy and diabetes mellitus. He has also history of obstructive sleep apnea. His current white cell count is at 8.1. His renal function isn't. The patient's creatinine is at 2.0. Repeat echocardiogram was done during this current admission showed improvement in LV function with an ejection fraction of 50-55% and the right ventricular systolic pressure was measured to be 24 and the patient's cardiac rhythm is sinus mechanism. The chest x-ray shows increased interstitial markings bilaterally consistent with pulmonary vascular congestion. Superimposed pneumonia cannot be completely excluded. No significant signs of fluid overload. No worsening in lower extremity edema. No signs of any fluid gain. He has been exposed to children who have had respiratory tract infection at home. No altered mentation. No pleurisy. No hemoptysis. The amount of mucus is been coughed out is copious and purulent. On 04/11/2018 patient seen in follow-up. Resting comfortably in bed, in no acute distress, a bit lethargic, but easily arousable. Pulse ox on 4 L per nasal cannula is 88-89%, patient is wearing BiPAP at bedtime. Afebrile, hemodynamically stable, remains on empiric antibiotics in the form of Zithromax , and Rocephin, seating oral diuretics, nebulized bronchodilators, systemic steroids. Lung sounds reveal diminished breath sounds with scattered rhonchi, and wheezes On 04/12/2018 patient seen again in follow-up on [facility] care unit. Resting in bed, in no acute distress, is on BiPAP support at night, on nasal cannula during the day, currently at 4 L. He states his breathing has not much improved , although physical exam reveals last bronchospastic lung sounds, and scattered rhonchi. Afebrile, no fever or chills, his chest x-ray has been reviewed, is resolution of the previous bibasilar infiltrates, and stable cardiomegaly. Patient remains on oral diuretics in the form of Lasix 40 mg once daily, and on today's labs there is evidence of worsening renal failure, and BUN is 98, creatinine is 4.61, nephrology has been consulted. WBC is 11.4, hemoglobin is 17.4. And sputum culture is pending. the patient seen again today 04/13/2018 in follow-up on the selective care unit. He is currently resting quite comfortably in bed. He is awake and alert in no acute distress. He is wearing the BiPAP throughout the evening to 4 L of nasal cannula during the day. He denies any worsening shortness of breath, cough or congestion. He's not very active. He needs increased encouragement to be up out of bed. Sputum culture reveals no growth. He is continued on DuoNeb inhalations, Symbicort, IV Solu-Medrol.remains on empiric antibiotics in the form of ceftriaxone and azithromycin. On 04/14/2018, this patient's is not having any significant respiratory distress. He shortness of breath is improved as the patient COPD/CHF exacerbation is more optimized. However, as noted, the patient developed progressive worsening renal function and creatinine is on the rise. No signs of any significant fluid overload. His creatinine is worse. This is felt to be related to cardiorenal factors. He is known to have CHF/diastolic dysfunction he was diuresed and he was responding nicely to diuretics and subsequently his creatinine gradually came up from a baseline of 1.4 up to 5.1. His potassium level is at 5.8. No significant metabolic acidosis. His bicarb level is at 30. His chest x-ray is showing some retrocardiac infiltrate with mild infiltration of the right lung base. Otherwise no other acute abnormality is are seen. On 04/15/2018 patient seen again in follow-up on [facility] care unit. He is sitting in his bed, eating lunch, in no acute distress, and 6 L per nasal cannula with pulse ox of 94%, he is afebrile, hemodynamically stable, today's labs show slight improvement in his renal profile, BUN is stable at 135, creatinine is 4.82. Patient is receiving IV hydration of 0.9 normal saline at a rate of 75 ML per hour. Lung sounds are diminished, no wheezes or rhonchi were noted. Urine and sputum cultures remain negative, I count of 16.2, hemoglobin is 18.5, potassium is 5.8. No new chest x-rays today, patient does wear BiPAP at nighttime. On 04/20/2018 patient seen again in follow-up on [facility] care unit. Denies any acute distress, he removed his oxygen, and room air pulse ox is 81%, subsequently placed back on his 6 L per nasal cannula and his pulse ox recovered into the low 90s, wear BiPAP last night, he is afebrile. He denies his breathing becoming any better, however physical exam reveals her air entry bilaterally, with the few rales at the left lower lobe. Patient remains in sinus rhythm, he is awaiting his hemodialysis today, he is producing good urine , BUN is 92, creatinine is 3.4. Nephrology is following, no new chest x-rays Objective - Vital Signs Vital signs: Vital Signs Temp 98.3 F 04/20/18 08:00 Pulse 84 04/20/18 11:25 Resp 20 04/20/18 08:00 BP 136/90 04/20/18 08:00 Pulse Ox 100 04/20/18 08:00 Intake & Output 04/19/18 04/20/18 04/20/18 18:59 06:59 18:59 Intake Total 770 478 Output Total 1800 1425 0 Balance -1030 -1425 478 Weight 84 kg 72 kg Intake: IV 170 0.9 160 Invasive Line 3 10 Oral 600 478 Output: Urine 1800 1425 Stool 0 0 0 Other: Voiding Method Indwelling Catheter Indwelling Catheter Indwelling Catheter - Exam Gen. appearance, comfortable awake nonacute distress. Flat affect noted Head exam was generally normal. There was no scleral icterus or corneal arcus. Mucous membranes were moist. Neck was supple and without jugular venous distension, thyromegaly, or carotid bruits. Carotids were easily palpable bilaterally. There was no adenopathy. Lungs sounds are diminished bilaterally, no significant chest congestion noted, no rhonchi, no wheezing. Cardiac exam revealed the PMI to be normally situated and sized. The rhythm was regular and no extrasystoles were noted during several minutes of auscultation. The first and second heart sounds were normal and physiologic splitting of the second heart sound was noted. There were no murmurs, rubs, clicks, or gallops. Abdominal exam revealed normal bowel sounds. The abdomen was soft, non-tender, and without masses, organomegaly, or appreciable enlargement of the abdominal aorta. Examination of the extremities revealed easily palpable radial, femoral and pedal pulses. There was no cyanosis, clubbing or edema. Examination of the skin revealed no evidence of significant rashes, suspicious appearing nevi or other concerning lesions. Neurologically the patient is awake and alert and there is no focal neurological deficit. - Labs CBC & Chem 7: 04/20/18 05:31 04/20/18 05:31 Labs: Abnormal Lab Results - Last 24 Hours (Table) 04/19/18 04/19/18 04/20/18 Range/Units 16:31 21:03 05:31 RBC (4.30-5.90) m/uL RDW (11.5-15.5) % Plt Count (150-450) k/uL Potassium 5.3 H (3.5-5.1) mmol/L Carbon Dioxide 31 H (22-30) mmol/L BUN 92 H* (9-20) mg/dL Creatinine 3.40 H (0.66-1.25) mg/dL Glucose 112 H (74-99) mg/dL POC Glucose (mg/dL) 231 H 303 H (75-99) mg/dL Total Protein 4.9 L (6.3-8.2) g/dL Albumin 2.8 L (3.5-5.0) g/dL 04/20/18 04/20/18 04/20/18 Range/Units 05:31 05:52 12:02 RBC 5.92 H (4.30-5.90) m/uL RDW 15.9 H (11.5-15.5) % Plt Count 81 L (150-450) k/uL Potassium (3.5-5.1) mmol/L Carbon Dioxide (22-30) mmol/L BUN (9-20) mg/dL Creatinine (0.66-1.25) mg/dL Glucose (74-99) mg/dL POC Glucose (mg/dL) 105 H 238 H (75-99) mg/dL Total Protein (6.3-8.2) g/dL Albumin (3.5-5.0) g/dL Assessment and Plan Plan: Assessment: 1 acute COPD exacerbation with purulent tracheal bronchitis with production of copious amount of purulent respiratory secretions. Underlying pneumonia is currently completely excluded. Sputum culture showed many normal respiratory sukhdeep. Significant has been treated empirically with a combination of azithromycin and Rocephin. 2 shortness of breath secondary to above 3 chronic hypoxic respiratory failurechronic hypercapnic respiratory failure secondary to COPD 4 diabetes mellitus 5 diabetic peripheral neuropathy 6 history of congestion heart failure with subsequent improvement in the left ventricular ejection fraction. The patient has had previous history of ischemic cardiomyopathy and has an AICD in place. Based on the most recent echocardiogram the ejection fraction is normalized with an EF around 50-65% without any significant valvular abnormalities 7 coronary artery disease 8 hypertension 9 hyperlipidemia 10 depression 11 previous history of respiratory failure requiring intubation mechanical ventilation 12 bipolar disorder 13 chronic renal failure with stage III chronic kidney disease. Plan: Continue current medical treatment, patient is maintained on hemodialysis, is having ongoing oozing from around the hemodialysis insertion site. His urine output is improving, he is nonoliguric, denies any shortness of breath or chest pain. No fever, no chills, no phlegm production, no wheezing, no rhonchi Follow the patient on as-needed basis. I performed a history & physical examination of the patient and discussed their management with my nurse practitioner, Ysabel Macias. I reviewed the nurse practitioner's note and agree with the documented findings and plan of care. Lung sounds are positive for diminished breath sounds. The findings and the impression was discussed with the patient. I attest to the documentation by the nurse practitioner. Time with Patient: Less than 30
--- NOTE | 2018-04-20 15:11 | P.PN ---
Subjective Progress Note Date: 04/20/18 Interval history: This is a 57-year-old gentleman admitted with acute CHF exacerbation,COPD exacerbation with purulent tracheobronchitis and multiple other medical issues. Maintained on Zithromax, Rocephin, nebulized bronchodilators, systemic steroids. Complains of greenish yellowish sputum production, sputum culture pending. Maintained on BiPAP during the night, currently maintaining O2 sats of low 90s on 4 L nasal cannula. Afebrile. Echo reporting preserved LV function, EF 50-55%. Telemetry sinus rhythm. Diuresed initially with Lasix IV push ,Worsening renal function, creatinine 2. Lasix converted to oral. 04/11/2018 BiPAP at bedside, wore last night. Continues on Rocephin, Zithromax , systemic steroids, nebulized bronchodilators, oral Lasix. Maintaining O2 sats of high 80s on 4 L nasal cannula. Sleepy, arousable. Renal function worsening , up to 3.1. Nephrology consulted. Afebrile, normal WBC. Patient's creatinine has worsened because of which nephrology was consulted today patient was switched to oral Lasix. 04/13/2018 She is not feeling well today patient is quite fatigued and creatinine went up to 5.11 patient was started on IV fluids. Patient has rhonchus breath sounds lungs doesn't sound great either. Patient also requirements have gone up. A she is also comparing of increasing shortness of breath 04/14/2018 Patient respiratory status improved because of which patient is feeling better today. Her creatinine did get worse. Nephrology is following the patient and believe patient has cardiorenal syndrome. 04/15/2018 Patient is as his basic mental status, confirmed with the staff. Patient is breathing quietly. BMP: cr trending down today from 5.19 to 4.8, follow-up with creatinine; possible short-term dialysis is on hold now, as per nephrology recommendation. Renal ultrasound shows prominent prostate and he is on Hernandez catheter, with possible isoechoic lesion on the left kidney, and cyst on the right kidney, patient might benefit from urologic evaluation 04/16/18 more alert today, maintaining O2 sats in the mid 90s on 6 L high flow nasal cannula. Maintained on IV fluid hydration. BUN 140, creatinine 4.99, potassium 5.8. Hematocrit 60. Afebrile, sputum, urine cultures negative. Worsening renal function, vascular surgery consulted for dialysis cathete On 04/17/2018 patient is now being followed by Dr. Regalado's group her primary care. Patient states he was confused when he first arrived at the hospital and sent Dr. Garcia was his primary care doctor when patient is currently followed by Dr. Regalado. Patient had been seen and followed by Dr. Vo until clarification was made. Patient did receive dialysis last night 1 L off and will receive dialysis again today. Creatinine level 3.88 and bun 108. Nephrology services are following. Patient denies chest pain or shortness breath. On 04/18/2018 patient is currently resting comfortably in bed. Patient received a midline placed yesterday. Patient received dialysis on 04/16/2018, 04/17/2018 and per nursing staff patient is planning to get dialysis again today. Bun currently 81, creatinine 3.08. Potassium increased to 6.1. Nephrology services are following. Patient denies chest pain or shortness of breath at this time. She remains on 6 L high flow nasal cannula. On 04/19/2018 patient is currently resting comfortably in bed with no complaints at this time. Patient received dialysis yesterday for the third day in a row. Dr. Flores for Nephrology has added Lasix 60 mg twice a day. Plans for dialysis tomorrow. Potassium remains elevated at 5.5. Patient received dose of insulin and half an amp of D50 per nephrology. Plans for IJ permacath per Dr. Pandey. Patient did have a run of V. tach yesterday during dialysis. Cardiology neurology has been reconsulted for case. Denies chest pain or shortness of breath. Denies nausea vomiting or diarrhea. On 04/20/2018 patient is alert and oriented in no apparent distress he is scheduled for repeat dialysis today he denies any fever or chills no headache or dizziness no chest pain no shortness of breath no cough no nausea or vomiting no abdominal pain no diarrhea he is making urine he denies any burning was urination and no hematuria Objective - Vital Signs Vital signs: Vital Signs Temp 98.3 F 04/20/18 08:00 Pulse 84 04/20/18 11:25 Resp 20 04/20/18 08:00 BP 136/90 04/20/18 08:00 Pulse Ox 100 04/20/18 08:00 Intake & Output 04/19/18 04/20/18 04/20/18 18:59 06:59 18:59 Intake Total 770 478 Output Total 1800 1425 0 Balance -1030 -1425 478 Weight 84 kg 72 kg Intake: IV 170 0.9 160 Invasive Line 3 10 Oral 600 478 Output: Urine 1800 1425 Stool 0 0 0 Other: Voiding Method Indwelling Catheter Indwelling Catheter Indwelling Catheter - Exam Head normocephalic and atraumatic Neck supple no JVD no goiter Lungs clear to auscultation bilaterally no wheezing or crackles Heart regular rate and rhythm S1-S2, no rub or gallop Abdomen is soft nontender nondistended positive bowel sounds no hepatosplenomegaly Extremities no edema no cyanosis or clubbing Neuro alert and orientated to 3 - Labs CBC & Chem 7: 04/20/18 05:31 04/20/18 05:31 Labs: Abnormal Lab Results - Last 24 Hours (Table) 04/19/18 04/19/18 04/20/18 Range/Units 16:31 21:03 05:31 RBC (4.30-5.90) m/uL RDW (11.5-15.5) % Plt Count (150-450) k/uL Potassium 5.3 H (3.5-5.1) mmol/L Carbon Dioxide 31 H (22-30) mmol/L BUN 92 H* (9-20) mg/dL Creatinine 3.40 H (0.66-1.25) mg/dL Glucose 112 H (74-99) mg/dL POC Glucose (mg/dL) 231 H 303 H (75-99) mg/dL Total Protein 4.9 L (6.3-8.2) g/dL Albumin 2.8 L (3.5-5.0) g/dL 04/20/18 04/20/18 04/20/18 Range/Units 05:31 05:52 12:02 RBC 5.92 H (4.30-5.90) m/uL RDW 15.9 H (11.5-15.5) % Plt Count 81 L (150-450) k/uL Potassium (3.5-5.1) mmol/L Carbon Dioxide (22-30) mmol/L BUN (9-20) mg/dL Creatinine (0.66-1.25) mg/dL Glucose (74-99) mg/dL POC Glucose (mg/dL) 105 H 238 H (75-99) mg/dL Total Protein (6.3-8.2) g/dL Albumin (3.5-5.0) g/dL Assessment and Plan Plan: 1. Hypoxic, Hypercapnic respiratory failure multifactorial secondary to acute CHF exacerbation initially as well as acute COPD exacerbation. No pneumonia as per pulmonary. Patient remains on Solu-Medrol pulmonary services. Patient remains on high flow 6L. Patient remains on azithromycin per pulmonary. 2. Troponin 0.063, acute non-STEMI ruled out as per cardiology and attributed to cardiomyopathy ,oxygen supply and demand mismatch. 3. Acute on chronic renal failure, stage III, worsening, secondary to urinary retention, cardiorenal syndrome. ATN. Patient received dialysis access the right femoral vein per Dr. Pandey yesterday. Patient received dialysis with 1 L off yesterday and will receive dialysis again today per nephrology. Creatinine 3.88, bun 108. Potassium increasing to 6.1 today. Per nursing staff patient will get dialysis again today. Nephrology services are following. Per nephrology patient will get dialysis tomorrow. Patient will get IJ permacath per Dr. Pandey today. Patient did receive dialysis the past 3 days. 4. CAD,HTN, Hyperlipidemia. 5. Diabetes mellitus type 2, hemoglobin A1c 6.6 6. Chronic hypoxic respiratory failure 7. Chronic sleep apnea 8. Severe ischemic cardiomyopathy, AICD, EF 40-45% with acute on chronic systolic dysfunction. Current echo reporting EF 50-55%. Cardiology currently following on an as-needed basis 9. Bipolar 10. Ongoing nicotine dependence 11 .Right renal cyst, prominent prostate, and possible isoechoic lesion on the left kidney, in view of urinary retention , w/u as per urology. Patient currently has adequate urine output 12. Hyperkalemia. Potassium today 5.4 we'll continue to monitor closely patient received dialysis today. Calcium 6.1 patient will receive dialysis today. Potassium 5.5 today per nephrology will receive a dose of insulin and D50. Nephrology has added Lasix 60 mg twice a day. 13. Thrombocytopenia. Platelets 84. Appears to be a chronic issue for patient. We'll continue to monitor closely 14. Episode of ventricular tachycardia during dialysis. Could possibly be related to elevated potassium level. Cardiology services have been reconsulted DVT prophylaxis SCD, patient did have low platelets. Will recheck tomorrow consider adding DVT heparin or Lovenox. GI prophylaxis Pepcid
[2018-04-20] MEDS: hydrALAZINE HCL 50 MG TAB PO SCH ×3 (15:14→21:11)
[2018-04-20] MEDS: ALLOPURINOL 100 MG TAB PO SCH (15:15)
[2018-04-20] MEDS: FAMOTIDINE 20 MG TAB PO SCH (15:15)
[2018-04-20] MEDS: GABAPENTIN 300 MG CAP PO SCH (15:15)
[2018-04-20] MEDS: predniSONE 20 MG TAB PO SCH (15:15)
[2018-04-20] MEDS: amLODIPine 5 MG TAB PO SCH (15:16)
[2018-04-20] MEDS: PREGABALIN 75 MG CAP PO SCH ×2 (15:18→21:11)
[2018-04-20] MEDS: ESCITALOPRAM 20 MG TAB PO SCH (15:18)
[2018-04-20] MEDS ORDERED: IV FLUID CONTINUATION 1,000 ML IV ONE (15:41)
[2018-04-20] MEDS ORDERED: LIDOCAINE 1% INJ 10MG/ML (10 ML MDV) SQ ONE (15:51)
[2018-04-20] MEDS ORDERED: MIDAZOLAM 2 MG/2 ML VIAL IV ONE (15:51)
[2018-04-20] MEDS ORDERED: LIDOCAINE 2% (PF) 20 MG/ML 2 ML AMP SQ ONE (16:04)
[2018-04-20 16:57] LABS: Glucose,Whole Blood 137 mg/dL (75-99)
--- NOTE | 2018-04-20 18:56 | XR ---
EXAMINATION TYPE: XR chest 1V DATE OF EXAM: 04/20/2018 COMPARISON: 04/17/2018 INDICATION: Placement of a catheter TECHNIQUE: Single frontal view of the chest is obtained. FINDINGS: The heart size is slightly prominent. Pacemaker overlies left chest.. The pulmonary vasculature is normal. The lungs are clear. No pneumothorax is evident post line placement. Double-lumen catheter tips appear to be within the mckeon perior vena cava region. IMPRESSION: 1. No pneumothorax post line placement. Tips are within the distal superior vena cava region.
--- NOTE | 2018-04-20 18:58 | PCN ---
PROCEDURE NOTE PREOPERATIVE DIAGNOSIS: Acute on chronic renal failure. PROCEDURE: 1. Ultrasound-guided 23 cm dialysis catheter right internal jugular approach. 2. His removal of the temporary dialysis catheter right femoral approach. Sedation time is 30 minutes. This patient was brought to the label cutter. The right side of the neck and chest was prepped and draped in a sterile manner. Lidocaine 1% was infiltrated in neck and chest area. Ultrasound-guided micropuncture introduced into right internal jugular vein. Micropuncture guide was passed and then a 4-[place] dilator on the top of the guidewire. Then we passed a regular guidewire which was passed in the inferior vena cava. This patient had a pacemaker placed in the past. After that, a tunnel was created. Through the tunnel, we brought 23 cm dialysis catheter. The dilator was advanced on the top of the guidewire under fluoroscopy control and sheath was advanced. Through the sheath, we introduced the dialysis catheter. Tip of the catheter in superior vena cava and atrium flushed with heparin saline and hep-locked, secured with 3-0 nylon. Dressing applied. Then right groins were prepped and suture was removed and the old catheter removed. Pressure was held. Patient tolerated the procedure well. MMODL / IJN: [id number] /
[2018-04-20] MEDS: HYDROcodone/APAP 5-325MG 1 EACH TAB PO PRN (19:35)
[2018-04-20 20:35] LABS: Glucose,Whole Blood 431 mg/dL (75-99)
[2018-04-20] MEDS: INSULIN DETEMIR 100 UNIT/ML 10 ML VIAL SQ SCH (21:11)
[2018-04-20] MEDS: PRAVASTATIN SODIUM 40 MG TAB PO SCH (21:11)
[2018-04-20] MEDS: QUEtiapine 100 MG TAB PO SCH (21:11)
[2018-04-20] MEDS ORDERED: SODIUM POLYSTYRENE SULFONATE 15 GM/60 ML BOTTLE PO STA (23:06)
[2018-04-21 06:01] LABS: Glucose,Whole Blood 161 mg/dL (75-99)
[2018-04-21 06:26] LABS: Basophils % (A) 0 %; Eosinophils % (A) 0 %; HCT 47.9 % (39.0-53.0); HGB 14.8 gm/dL (13.0-17.5); Lymphocytes # (A) 1.1 k/uL (1.0-4.8); Lymphocytes % (A) 9 %; MCH 26.7 pg (25.0-35.0); MCV 86.3 fL (80.0-100.0); Mean Platelet Volume 12.8; Monocytes # (A) 0.9 k/uL (0-1.0); Monocytes % (A) 8 %; Neutrophils # (A) 9.7 k/uL (1.3-7.7); Neutrophils % (A) 82 %; RBC 5.55 m/uL (4.30-5.90); RDW 15.9 % (11.5-15.5); WBC 11.9 k/uL (3.8-10.6)
[2018-04-21 06:41] LABS: Albumin 2.7 g/dL (3.5-5.0); Calcium 8.4 mg/dL (8.4-10.2); Platelet Count 79 k/uL (150-450); Potassium 5.6 mmol/L (3.5-5.1); Total Bilirubin 0.4 mg/dL (0.2-1.3); Total Protein 4.9 g/dL (6.3-8.2)
[2018-04-21] MEDS: INSULIN ASPART 100 UNIT/ML 1 ML 10 ML VIAL SQ SCH ×4 (06:41→22:02)
[2018-04-21] MEDS: CARVEDILOL 12.5 MG TAB PO SCH ×2 (06:41→15:47)
[2018-04-21] MEDS: ALLOPURINOL 100 MG TAB PO SCH (07:59)
[2018-04-21] MEDS: amLODIPine 5 MG TAB PO SCH (08:00)
[2018-04-21] MEDS: ESCITALOPRAM 20 MG TAB PO SCH (08:00)
[2018-04-21] MEDS: FAMOTIDINE 20 MG TAB PO SCH (08:00)
[2018-04-21] MEDS: predniSONE 20 MG TAB PO SCH (08:01)
[2018-04-21] MEDS: FUROSEMIDE 10 MG/ML 10 ML VIAL IV SCH ×2 (08:01→22:05)
[2018-04-21] MEDS: GABAPENTIN 300 MG CAP PO SCH (08:01)
[2018-04-21] MEDS: hydrALAZINE HCL 50 MG TAB PO SCH ×3 (08:02→22:06)
[2018-04-21] MEDS: PREGABALIN 75 MG CAP PO SCH ×2 (08:05→22:05)
[2018-04-21] MEDS: SYMBICORT 80-4.5 MCG INHALER INHALATION SCH ×2 (08:20→20:20)
[2018-04-21] MEDS: IPRATROPIUM-ALBUTEROL 3 ML NEB INHALATION SCH ×4 (08:20→20:21)
[2018-04-21] MEDS ORDERED: INSULIN REGULAR 100 UNIT/ML VIAL IV ONE ×2 (08:22→14:00)
[2018-04-21] MEDS ORDERED: DEXTROSE 50%-WATER 50 ML SYRINGE IVP STA ×2 (08:22→13:39)
--- NOTE | 2018-04-21 08:53 | P.PN ---
Subjective Patient is seen in follow-up for acute kidney injury on chronic kidney disease. He is currently maintained on hemodialysis. His femoral catheter was removed and a permacath was placed on April 20. Currently resting in bed. He is nonoliguric. Denies chest pain or shortness of breath. Potassium is 5.6 this morning. Vital signs are stable. General: The patient appeared well nourished and normally developed. HEENT: Head exam is unremarkable. Neck is without jugular venous distension. LUNGS: Lungs are clear to auscultation and percussion. Breath sounds decreased. HEART: Rate and Rhythm are regular. First and second heart sounds normal. No murmurs, rubs or gallops. ABDOMEN: Abdominal exam reveals normal bowel sounds. Non-tender and non- distended. No evidence of peritonitis. EXTREMITITES: No clubbing, cyanosis, or edema. Objective - Vital Signs Vital signs: Vital Signs Temp 98.2 F 04/21/18 07:52 Pulse 88 04/21/18 08:32 Resp 18 04/21/18 08:08 BP 119/81 04/21/18 07:52 Pulse Ox 94 L 04/21/18 08:08 Intake & Output 04/20/18 04/21/18 04/21/18 18:59 06:59 18:59 Intake Total 878 458 Output Total 2300 1000 0 Balance -1422 -1000 458 Weight 71 kg Intake: IV 110 0.9 60 Intake, IV Titration 50 Amount Desmopressin Inj 22 mcg 50 In Sodium Chloride 0.9% 50 ml @ 200 mls/hr IVPB ONCE ONE Rx#:[id number] Oral 718 458 Output: Urine 1300 1000 Stool 0 0 0 Other 1000 Other: Voiding Method Indwelling Catheter Urinal Urinal - Labs CBC & Chem 7: 04/21/18 05:26 04/21/18 05:26 Labs: Abnormal Lab Results - Last 24 Hours (Table) 04/20/18 04/20/18 04/20/18 Range/Units 12:02 16:48 19:05 WBC (3.8-10.6) k/uL RDW (11.5-15.5) % Plt Count (150-450) k/uL Neutrophils # (1.3-7.7) k/uL Potassium 6.5 H* (3.5-5.1) mmol/L BUN (9-20) mg/dL Creatinine (0.66-1.25) mg/dL Glucose (74-99) mg/dL POC Glucose (mg/dL) 238 H 137 H (75-99) mg/dL Total Protein (6.3-8.2) g/dL Albumin (3.5-5.0) g/dL 04/20/18 04/20/18 04/21/18 Range/Units 20:35 21:49 05:26 WBC (3.8-10.6) k/uL RDW (11.5-15.5) % Plt Count (150-450) k/uL Neutrophils # (1.3-7.7) k/uL Potassium 6.3 H* 5.6 H (3.5-5.1) mmol/L BUN 92 H* (9-20) mg/dL Creatinine 3.80 H (0.66-1.25) mg/dL Glucose 150 H (74-99) mg/dL POC Glucose (mg/dL) 431 H (75-99) mg/dL Total Protein 4.9 L (6.3-8.2) g/dL Albumin 2.7 L (3.5-5.0) g/dL 04/21/18 04/21/18 Range/Units 05:26 05:53 WBC 11.9 H (3.8-10.6) k/uL RDW 15.9 H (11.5-15.5) % Plt Count 79 L (150-450) k/uL Neutrophils # 9.7 H (1.3-7.7) k/uL Potassium (3.5-5.1) mmol/L BUN (9-20) mg/dL Creatinine (0.66-1.25) mg/dL Glucose (74-99) mg/dL POC Glucose (mg/dL) 161 H (75-99) mg/dL Total Protein (6.3-8.2) g/dL Albumin (3.5-5.0) g/dL Assessment and Plan Plan: Assessment: 1. Acute kidney injury secondary to ATN secondary to cardiorenal syndrome. Currently maintained on hemodialysis. Last hemodialysis was yesterday but was cut short due to malfunctioning femoral catheter. 2. Chronic kidney disease stage III with baseline creatinine in the range of 1.4-1.8. 3. Diastolic CHF. 4. Volume overload. Improved with ultrafiltration and diuresis. 5. Hyperkalemia secondary to acute kidney injury. Hyperglycemia has resolved. No significant metabolic acidosis. 6. Generalized debility. 7. COPD exacerbation with purulent tracheobronchitis. Pulmonology following. Plan: Hemodialysis tomorrow. Continue Lasix 60 mg IV twice daily. Maintain low potassium diet. Awaits permacath placement. 10 units of IV regular insulin with amp of D50 now. Repeat potassium level at 2 PM today. Continue to monitor for renal recovery as an outpatient.
[2018-04-21 10:17] LABS: Glucose,Whole Blood 116 mg/dL (75-99)
[2018-04-21 11:29] LABS: Glucose,Whole Blood 80 mg/dL (75-99)
[2018-04-21] MEDS ORDERED: ALPRAZolam 0.25 MG TAB PO PRN (11:33)
--- NOTE | 2018-04-21 12:55 | P.PN ---
Subjective Progress Note Date: 04/21/18 This 57-year-old -[place] male presenting with increased cough, thick purulent sputum production, and increased bronchospasm and wheezing for the past 1 week. The patient is known to me from previous hospitalizations. He has multiple medical problems and comorbidities. He is known to have COPD and addition to coronary artery disease, chronic renal failure with stage III chronic kidney disease, congestion heart failure with a previous ejection fraction of 40-45% and the patient has an AICD in place, he has also history of hypertension, hyperlipidemia, depression, bipolar disorder and diabetic peripheral neuropathy and diabetes mellitus. He has also history of obstructive sleep apnea. His current white cell count is at 8.1. His renal function isn't. The patient's creatinine is at 2.0. Repeat echocardiogram was done during this current admission showed improvement in LV function with an ejection fraction of 50-55% and the right ventricular systolic pressure was measured to be 24 and the patient's cardiac rhythm is sinus mechanism. The chest x-ray shows increased interstitial markings bilaterally consistent with pulmonary vascular congestion. Superimposed pneumonia cannot be completely excluded. No significant signs of fluid overload. No worsening in lower extremity edema. No signs of any fluid gain. He has been exposed to children who have had respiratory tract infection at home. No altered mentation. No pleurisy. No hemoptysis. The amount of mucus is been coughed out is copious and purulent. On 04/11/2018 patient seen in follow-up. Resting comfortably in bed, in no acute distress, a bit lethargic, but easily arousable. Pulse ox on 4 L per nasal cannula is 88-89%, patient is wearing BiPAP at bedtime. Afebrile, hemodynamically stable, remains on empiric antibiotics in the form of Zithromax , and Rocephin, seating oral diuretics, nebulized bronchodilators, systemic steroids. Lung sounds reveal diminished breath sounds with scattered rhonchi, and wheezes On 04/12/2018 patient seen again in follow-up on selective care unit. Resting in bed, in no acute distress, is on BiPAP support at night, on nasal cannula during the day, currently at 4 L. He states his breathing has not much improved , although physical exam reveals last bronchospastic lung sounds, and scattered rhonchi. Afebrile, no fever or chills, his chest x-ray has been reviewed, is resolution of the previous bibasilar infiltrates, and stable cardiomegaly. Patient remains on oral diuretics in the form of Lasix 40 mg once daily, and on today's labs there is evidence of worsening renal failure, and BUN is 98, creatinine is 4.61, nephrology has been consulted. WBC is 11.4, hemoglobin is 17.4. And sputum culture is pending. the patient seen again today 04/13/2018 in follow-up on the selective care unit. He is currently resting quite comfortably in bed. He is awake and alert in no acute distress. He is wearing the BiPAP throughout the evening to 4 L of nasal cannula during the day. He denies any worsening shortness of breath, cough or congestion. He's not very active. He needs increased encouragement to be up out of bed. Sputum culture reveals no growth. He is continued on DuoNeb inhalations, Symbicort, IV Solu-Medrol.remains on empiric antibiotics in the form of ceftriaxone and azithromycin. On 04/14/2018, this patient's is not having any significant respiratory distress. He shortness of breath is improved as the patient COPD/CHF exacerbation is more optimized. However, as noted, the patient developed progressive worsening renal function and creatinine is on the rise. No signs of any significant fluid overload. His creatinine is worse. This is felt to be related to cardiorenal factors. He is known to have CHF/diastolic dysfunction he was diuresed and he was responding nicely to diuretics and subsequently his creatinine gradually came up from a baseline of 1.4 up to 5.1. His potassium level is at 5.8. No significant metabolic acidosis. His bicarb level is at 30. His chest x-ray is showing some retrocardiac infiltrate with mild infiltration of the right lung base. Otherwise no other acute abnormality is are seen. On 04/15/2018 patient seen again in follow-up on selective care unit. He is sitting in his bed, eating lunch, in no acute distress, and 6 L per nasal cannula with pulse ox of 94%, he is afebrile, hemodynamically stable, today's labs show slight improvement in his renal profile, BUN is stable at 135, creatinine is 4.82. Patient is receiving IV hydration of 0.9 normal saline at a rate of 75 ML per hour. Lung sounds are diminished, no wheezes or rhonchi were noted. Urine and sputum cultures remain negative, I count of 16.2, hemoglobin is 18.5, potassium is 5.8. No new chest x-rays today, patient does wear BiPAP at nighttime. On 04/20/2018 patient seen again in follow-up on [facility] care unit. Denies any acute distress, he removed his oxygen, and room air pulse ox is 81%, subsequently placed back on his 6 L per nasal cannula and his pulse ox recovered into the low 90s, wear BiPAP last night, he is afebrile. He denies his breathing becoming any better, however physical exam reveals her air entry bilaterally, with the few rales at the left lower lobe. Patient remains in sinus rhythm, he is awaiting his hemodialysis today, he is producing good urine , BUN is 92, creatinine is 3.4. Nephrology is following, no new chest x-rays On 04/21/2018, the patient has a permacath in his right IJ and the femoral catheter has been removed. The patient is under the care of nephrology. The patient undergoing regular dialysis. No signs of any significant respiratory distress. Currently on room air with a pulse ox of 96%. No fever. No chills. No chest pain. No other significant events overnight. Today's potassium is at 5.7. Objective - Vital Signs Vital signs: Vital Signs Temp 98.2 F 04/21/18 07:52 Pulse 80 04/21/18 11:46 Resp 18 04/21/18 12:00 BP 119/81 04/21/18 07:52 Pulse Ox 94 L 04/21/18 08:08 Intake & Output 04/20/18 04/21/18 04/21/18 18:59 06:59 18:59 Intake Total 878 1298 Output Total 2300 1000 450 Balance -1422 -1000 848 Weight 71 kg Intake: IV 110 0.9 60 Intake, IV Titration 50 Amount Desmopressin Inj 22 mcg 50 In Sodium Chloride 0.9% 50 ml @ 200 mls/hr IVPB ONCE ONE Rx#:[id number] Oral 718 1298 Output: Urine 1300 1000 450 Stool 0 0 0 Other 1000 Other: Voiding Method Indwelling Catheter Urinal Urinal # Voids 1 - Exam Gen. appearance, comfortable awake nonacute distress. Flat affect noted Head exam was generally normal. There was no scleral icterus or corneal arcus. Mucous membranes were moist. Neck was supple and without jugular venous distension, thyromegaly, or carotid bruits. Carotids were easily palpable bilaterally. There was no adenopathy. The patient has a permacath in the right IJ Lungs sounds are diminished bilaterally, no significant chest congestion noted, no rhonchi, no wheezing. Cardiac exam revealed the PMI to be normally situated and sized. The rhythm was regular and no extrasystoles were noted during several minutes of auscultation. The first and second heart sounds were normal and physiologic splitting of the second heart sound was noted. There were no murmurs, rubs, clicks, or gallops. Abdominal exam revealed normal bowel sounds. The abdomen was soft, non-tender, and without masses, organomegaly, or appreciable enlargement of the abdominal aorta. Examination of the extremities revealed easily palpable radial, femoral and pedal pulses. There was no cyanosis, clubbing or edema. Examination of the skin revealed no evidence of significant rashes, suspicious appearing nevi or other concerning lesions. Neurologically the patient is awake and alert and there is no focal neurological deficit. - Labs CBC & Chem 7: 04/21/18 05:26 04/21/18 12:04 Labs: Abnormal Lab Results - Last 24 Hours (Table) 04/20/18 04/20/18 04/20/18 Range/Units 16:48 19:05 20:35 WBC (3.8-10.6) k/uL RDW (11.5-15.5) % Plt Count (150-450) k/uL Neutrophils # (1.3-7.7) k/uL Potassium 6.5 H* (3.5-5.1) mmol/L BUN (9-20) mg/dL Creatinine (0.66-1.25) mg/dL Glucose (74-99) mg/dL POC Glucose (mg/dL) 137 H 431 H (75-99) mg/dL Total Protein (6.3-8.2) g/dL Albumin (3.5-5.0) g/dL 04/20/18 04/21/18 04/21/18 Range/Units 21:49 05:26 05:26 WBC 11.9 H (3.8-10.6) k/uL RDW 15.9 H (11.5-15.5) % Plt Count 79 L (150-450) k/uL Neutrophils # 9.7 H (1.3-7.7) k/uL Potassium 6.3 H* 5.6 H (3.5-5.1) mmol/L BUN 92 H* (9-20) mg/dL Creatinine 3.80 H (0.66-1.25) mg/dL Glucose 150 H (74-99) mg/dL POC Glucose (mg/dL) (75-99) mg/dL Total Protein 4.9 L (6.3-8.2) g/dL Albumin 2.7 L (3.5-5.0) g/dL 04/21/18 04/21/18 04/21/18 Range/Units 05:53 10:15 12:04 WBC (3.8-10.6) k/uL RDW (11.5-15.5) % Plt Count (150-450) k/uL Neutrophils # (1.3-7.7) k/uL Potassium 5.7 H (3.5-5.1) mmol/L BUN (9-20) mg/dL Creatinine (0.66-1.25) mg/dL Glucose (74-99) mg/dL POC Glucose (mg/dL) 161 H 116 H (75-99) mg/dL Total Protein (6.3-8.2) g/dL Albumin (3.5-5.0) g/dL Assessment and Plan Plan: 1 acute COPD exacerbation with purulent tracheal bronchitis with production of copious amount of purulent respiratory secretions. Underlying pneumonia is currently completely excluded. Sputum culture showed many normal respiratory sukhdeep. Significant has been treated empirically with a combination of azithromycin and Rocephin. Currently off antibiotics as the patient completed the course of antibiotics without any major complications. 2 shortness of breath secondary to above, improved 3 chronic hypoxic respiratory failurechronic hypercapnic respiratory failure secondary to COPD 4 diabetes mellitus 5 diabetic peripheral neuropathy 6 history of congestion heart failure with subsequent improvement in the left ventricular ejection fraction. The patient has had previous history of ischemic cardiomyopathy and has an AICD in place. Based on the most recent echocardiogram the ejection fraction is normalized with an EF around 50-65% without any significant valvular abnormalities 7 coronary artery disease 8 hypertension 9 hyperlipidemia 10 depression 11 previous history of respiratory failure requiring intubation mechanical ventilation 12 bipolar disorder 13 chronic renal failure with stage III chronic kidney disease. The patient able to acute kidney injury during this current hospital stay and currently is dialysis dependent. The patient has a permacath in place. Urine output is low. The patient on Lasix 60 mg IV push every 12 hours Plan Monitor the potassium. Continue IV Lasix. Continue dialysis as indicated by nephrology. We'll treat the hyperkalemia with 10 units of insulin along with D50. Potassium levels will be repleted. Hemodialysis tomorrow. Primary status is stable. Arrange for outpatient dialysis at a later stage. We'll continue to follow during this current hospital stay.
[2018-04-21] MEDS ORDERED: ALBUTEROL NEBULIZED 2.5 MG/3 ML INHALATION STA (13:37)
[2018-04-21] MEDS ORDERED: SODIUM POLYSTYRENE SULFONATE 15 GM/60 ML BOTTLE PO STA (13:40)
--- NOTE | 2018-04-21 13:54 | P.PN ---
Subjective Progress Note Date: 04/21/18 Interval history: This is a 57-year-old gentleman admitted with acute CHF exacerbation,COPD exacerbation with purulent tracheobronchitis and multiple other medical issues. Maintained on Zithromax, Rocephin, nebulized bronchodilators, systemic steroids. Complains of greenish yellowish sputum production, sputum culture pending. Maintained on BiPAP during the night, currently maintaining O2 sats of low 90s on 4 L nasal cannula. Afebrile. Echo reporting preserved LV function, EF 50-55%. Telemetry sinus rhythm. Diuresed initially with Lasix IV push ,Worsening renal function, creatinine 2. Lasix converted to oral. 04/11/2018 BiPAP at bedside, wore last night. Continues on Rocephin, Zithromax , systemic steroids, nebulized bronchodilators, oral Lasix. Maintaining O2 sats of high 80s on 4 L nasal cannula. Sleepy, arousable. Renal function worsening , up to 3.1. Nephrology consulted. Afebrile, normal WBC. Patient's creatinine has worsened because of which nephrology was consulted today patient was switched to oral Lasix. 04/13/2018 She is not feeling well today patient is quite fatigued and creatinine went up to 5.11 patient was started on IV fluids. Patient has rhonchus breath sounds lungs doesn't sound great either. Patient also requirements have gone up. A she is also comparing of increasing shortness of breath 04/14/2018 Patient respiratory status improved because of which patient is feeling better today. Her creatinine did get worse. Nephrology is following the patient and believe patient has cardiorenal syndrome. 04/15/2018 Patient is as his basic mental status, confirmed with the staff. Patient is breathing quietly. BMP: cr trending down today from 5.19 to 4.8, follow-up with creatinine; possible short-term dialysis is on hold now, as per nephrology recommendation. Renal ultrasound shows prominent prostate and he is on Hernandez catheter, with possible isoechoic lesion on the left kidney, and cyst on the right kidney, patient might benefit from urologic evaluation 04/16/18 more alert today, maintaining O2 sats in the mid 90s on 6 L high flow nasal cannula. Maintained on IV fluid hydration. BUN 140, creatinine 4.99, potassium 5.8. Hematocrit 60. Afebrile, sputum, urine cultures negative. Worsening renal function, vascular surgery consulted for dialysis cathete On 04/17/2018 patient is now being followed by Dr. Regalado's group her primary care. Patient states he was confused when he first arrived at the hospital and sent Dr. Garcia was his primary care doctor when patient is currently followed by Dr. Regalado. Patient had been seen and followed by Dr. Vo until clarification was made. Patient did receive dialysis last night 1 L off and will receive dialysis again today. Creatinine level 3.88 and bun 108. Nephrology services are following. Patient denies chest pain or shortness breath. On 04/18/2018 patient is currently resting comfortably in bed. Patient received a midline placed yesterday. Patient received dialysis on 04/16/2018, 04/17/2018 and per nursing staff patient is planning to get dialysis again today. Bun currently 81, creatinine 3.08. Potassium increased to 6.1. Nephrology services are following. Patient denies chest pain or shortness of breath at this time. She remains on 6 L high flow nasal cannula. On 04/19/2018 patient is currently resting comfortably in bed with no complaints at this time. Patient received dialysis yesterday for the third day in a row. Dr. Flores for Nephrology has added Lasix 60 mg twice a day. Plans for dialysis tomorrow. Potassium remains elevated at 5.5. Patient received dose of insulin and half an amp of D50 per nephrology. Plans for IJ permacath per Dr. Pandey. Patient did have a run of V. tach yesterday during dialysis. Cardiology neurology has been reconsulted for case. Denies chest pain or shortness of breath. Denies nausea vomiting or diarrhea. On 04/20/2018 patient is alert and oriented in no apparent distress he is scheduled for repeat dialysis today he denies any fever or chills no headache or dizziness no chest pain no shortness of breath no cough no nausea or vomiting no abdominal pain no diarrhea he is making urine he denies any burning was urination and no hematuria. On 04/21/2018 patient is alert and oriented in no apparent distress potassium is still elevated patient is still on IV Lasix he is scheduled for repeat hemodialysis tomorrow there is blood oozing from the right subclavian catheter. Otherwise patient denies any complaints there is no fever or chills no headache or dizziness no chest pain no shortness of breath no nausea or vomiting no abdominal pain no diarrhea no burning was urination and no hematuria. Objective - Vital Signs Vital signs: Vital Signs Temp 98.2 F 04/21/18 07:52 Pulse 80 04/21/18 11:46 Resp 18 04/21/18 12:00 BP 119/81 04/21/18 07:52 Pulse Ox 94 L 04/21/18 08:08 Intake & Output 04/20/18 04/21/18 04/21/18 18:59 06:59 18:59 Intake Total 878 1298 Output Total 2300 1000 450 Balance -1422 -1000 848 Weight 71 kg Intake: IV 110 0.9 60 Intake, IV Titration 50 Amount Desmopressin Inj 22 mcg 50 In Sodium Chloride 0.9% 50 ml @ 200 mls/hr IVPB ONCE ONE Rx#:[id number] Oral 718 1298 Output: Urine 1300 1000 450 Stool 0 0 0 Other 1000 Other: Voiding Method Indwelling Catheter Urinal Urinal # Voids 1 - Exam Head normocephalic and atraumatic Neck supple no JVD no goiter Lungs clear to auscultation bilaterally no wheezing or crackles Heart regular rate and rhythm S1-S2, no rub or gallop Abdomen is soft nontender nondistended positive bowel sounds no hepatosplenomegaly Extremities no edema no cyanosis or clubbing Neuro alert and orientated to 3 - Labs CBC & Chem 7: 04/21/18 05:26 04/21/18 12:04 Labs: Abnormal Lab Results - Last 24 Hours (Table) 04/20/18 04/20/18 04/20/18 Range/Units 16:48 19:05 20:35 WBC (3.8-10.6) k/uL RDW (11.5-15.5) % Plt Count (150-450) k/uL Neutrophils # (1.3-7.7) k/uL Potassium 6.5 H* (3.5-5.1) mmol/L BUN (9-20) mg/dL Creatinine (0.66-1.25) mg/dL Glucose (74-99) mg/dL POC Glucose (mg/dL) 137 H 431 H (75-99) mg/dL Total Protein (6.3-8.2) g/dL Albumin (3.5-5.0) g/dL 04/20/18 04/21/18 04/21/18 Range/Units 21:49 05:26 05:26 WBC 11.9 H (3.8-10.6) k/uL RDW 15.9 H (11.5-15.5) % Plt Count 79 L (150-450) k/uL Neutrophils # 9.7 H (1.3-7.7) k/uL Potassium 6.3 H* 5.6 H (3.5-5.1) mmol/L BUN 92 H* (9-20) mg/dL Creatinine 3.80 H (0.66-1.25) mg/dL Glucose 150 H (74-99) mg/dL POC Glucose (mg/dL) (75-99) mg/dL Total Protein 4.9 L (6.3-8.2) g/dL Albumin 2.7 L (3.5-5.0) g/dL 04/21/18 04/21/18 04/21/18 Range/Units 05:53 10:15 12:04 WBC (3.8-10.6) k/uL RDW (11.5-15.5) % Plt Count (150-450) k/uL Neutrophils # (1.3-7.7) k/uL Potassium 5.7 H (3.5-5.1) mmol/L BUN (9-20) mg/dL Creatinine (0.66-1.25) mg/dL Glucose (74-99) mg/dL POC Glucose (mg/dL) 161 H 116 H (75-99) mg/dL Total Protein (6.3-8.2) g/dL Albumin (3.5-5.0) g/dL Assessment and Plan Plan: 1. Hypoxic, Hypercapnic respiratory failure multifactorial secondary to acute CHF exacerbation initially as well as acute COPD exacerbation. No pneumonia as per pulmonary. Patient remains on Solu-Medrol pulmonary services. Patient remains on high flow 6L. Patient remains on azithromycin per pulmonary. 2. Troponin 0.063, acute non-STEMI ruled out as per cardiology and attributed to cardiomyopathy ,oxygen supply and demand mismatch. 3. Acute on chronic renal failure, stage III, worsening, secondary to urinary retention, cardiorenal syndrome. ATN. Patient received dialysis access the right femoral vein per Dr. Pandey yesterday. Patient received dialysis with 1 L off yesterday and will receive dialysis again today per nephrology. Creatinine 3.88, bun 108. Potassium increasing to 6.1 today. Per nursing staff patient will get dialysis again today. Nephrology services are following. Per nephrology patient will get dialysis tomorrow. Patient will get IJ permacath per Dr. Pandey today. Patient did receive dialysis the past 3 days. 4. CAD,HTN, Hyperlipidemia. 5. Diabetes mellitus type 2, hemoglobin A1c 6.6 6. Chronic hypoxic respiratory failure 7. Chronic sleep apnea 8. Severe ischemic cardiomyopathy, AICD, EF 40-45% with acute on chronic systolic dysfunction. Current echo reporting EF 50-55%. Cardiology currently following on an as-needed basis 9. Bipolar 10. Ongoing nicotine dependence 11 .Right renal cyst, prominent prostate, and possible isoechoic lesion on the left kidney, in view of urinary retention , w/u as per urology. Patient currently has adequate urine output 12. Hyperkalemia. Potassium today 5.4 we'll continue to monitor closely patient received dialysis today. Calcium 6.1 patient will receive dialysis today. Potassium 5.5 today per nephrology will receive a dose of insulin and D50. Nephrology has added Lasix 60 mg twice a day. 13. Thrombocytopenia. Platelets 84. Appears to be a chronic issue for patient. We'll continue to monitor closely 14. Episode of ventricular tachycardia during dialysis. Could possibly be related to elevated potassium level. Cardiology services have been reconsulted DVT prophylaxis SCD, patient did have low platelets. Will recheck tomorrow consider adding DVT heparin or Lovenox. GI prophylaxis Pepcid
[2018-04-21 14:08] LABS: Glucose,Whole Blood 259 mg/dL (75-99)
[2018-04-21] MEDS ORDERED: ALBUTEROL NEB (CONC) 2.5 MG/0.5 ML INHALATION ONE (14:13)
[2018-04-21] MEDS ORDERED: DESMOPRESSIN ACETATE 4 MCG/ML VIAL (MDV) IVPB STA (14:15)
[2018-04-21] MEDS ORDERED: SODIUM CHLORIDE 0.9% IVPB ONE (14:30)
[2018-04-21] MEDS ORDERED: DESMOPRESSIN IVPB ONE (14:30)
[2018-04-21 15:06] LABS: Glucose,Whole Blood 319 mg/dL (75-99)
[2018-04-21 15:06] LABS: Glucose,Whole Blood 324 mg/dL (75-99)
[2018-04-21 16:40] LABS: Glucose,Whole Blood 194 mg/dL (75-99)
--- NOTE | 2018-04-21 20:13 | IR ---
EXAMINATION TYPE: IR cvc insert central tunneled DATE OF EXAM: 04/20/2018 CLINICAL HISTORY: Central tunneled catheter insertion. Fluoroscopy documentation. TECHNIQUE: Fluoroscopy. COMPARISON: None. FINDINGS: Fluoroscopic guidance was provided during procedure performed by vascular surgery. A tota l of 2.7 minutes of fluoroscopic time was utilized during a tunneled central venous catheter. 62 fluo roscopic images were saved.
[2018-04-21 21:12] LABS: Glucose,Whole Blood 306 mg/dL (75-99)
[2018-04-21] MEDS: HYDROcodone/APAP 5-325MG 1 EACH TAB PO PRN (22:01)
[2018-04-21] MEDS: INSULIN DETEMIR 100 UNIT/ML 10 ML VIAL SQ SCH (22:02)
[2018-04-21] MEDS: PRAVASTATIN SODIUM 40 MG TAB PO SCH (22:06)
[2018-04-21] MEDS: QUEtiapine 100 MG TAB PO SCH (22:06)
[2018-04-22 04:31] VITALS: TEMP 97.7
[2018-04-22 05:48] LABS: Glucose,Whole Blood 165 mg/dL (75-99)
[2018-04-22] MEDS: CARVEDILOL 12.5 MG TAB PO SCH ×2 (06:35→18:08)
[2018-04-22] MEDS: INSULIN ASPART 100 UNIT/ML 1 ML 10 ML VIAL SQ SCH ×2 (06:35→12:51)
[2018-04-22 07:51] LABS: Anisocytosis Slight; Basophils % (A) 0 %; Eosinophils % (A) 0 %; HCT 44.7 % (39.0-53.0); HGB 13.7 gm/dL (13.0-17.5); Lymphocytes # (A) 2.1 k/uL (1.0-4.8); Lymphocytes % (A) 22 %; MCH 26.7 pg (25.0-35.0); MCHC 30.7 g/dL (31.0-37.0); MCV 86.8 fL (80.0-100.0); Mean Platelet Volume 11.9; Monocytes # (A) 0.9 k/uL (0-1.0); Monocytes % (A) 9 %; Neutrophils # (A) 6.3 k/uL (1.3-7.7); Neutrophils % (A) 66 %; RBC 5.15 m/uL (4.30-5.90); RDW 16.1 % (11.5-15.5); WBC 9.6 k/uL (3.8-10.6)
[2018-04-22 07:55] LABS: Albumin 2.6 g/dL (3.5-5.0); Calcium 8.3 mg/dL (8.4-10.2); Potassium 4.7 mmol/L (3.5-5.1); Total Bilirubin 0.3 mg/dL (0.2-1.3); Total Protein 4.5 g/dL (6.3-8.2)
[2018-04-22 07:59] LABS: Platelet Count 68 k/uL (150-450)
[2018-04-22] MEDS: IPRATROPIUM-ALBUTEROL 3 ML NEB INHALATION SCH ×3 (08:13→15:50)
[2018-04-22] MEDS: SYMBICORT 80-4.5 MCG INHALER INHALATION SCH (08:13)
--- NOTE | 2018-04-22 10:25 | P.PN ---
Subjective Progress Note Date: 04/22/18 Acute exacerbation of systolic heart failure with baseline ejection fraction 20% , bilateral pleural effusion left more than right, shortness of breath related to above, CLL, acute agitated delirium acute hypoxic respiratory failure Ms. Morrow presented to [facility] ED on 04/12/18 with complaints of progressive Shortness of Breath over the past few days. She was recently admitted in March of this year for exacerbation of CHF. Her Ejection Fracture on that admission revealed 20-25% per echocardiogram. It was also noted she had severe dilation of the LAD, severe aortic stenosis, and mitral regurgitation. On presentation she was in mild distress with positive orthopnea and bilateral lower extremity edema. Chest Xray revealed bilateral pleural effusions, abnormal EKG. A CT of the abdomen and pelvis was also copleted and showed likely progression of underlying CLL with progressive splenomegaly, mass effect on the left kidney, significant bilateral inguinal lymphadenopathy, retroperitoneal adenopathy with enlarged para-arotic, mesenteric, and celiac nodes. Blood pressure has been running low, this am 75/44. She is requiring 3-4Liters of oxygen to maintain saturations above 92%. Her blood counts today revealed the following: WBC = 291 , Hemoglin = 7.1, Platelets = 107BNP = 22,700. During assessment she states she is overall feeling better than admission but still very short of breath with exertion. Swelling of legs has also improved since admission. 04/14/2018, patient seen eval examined during the rounds clinically she is slightly better in terms of breathing but is still get short of breath, patient underwent ultrasound of the chest bilateral pleural effusion is noted right more than left on the right side more than 8 cm depth of fluid has been noted, procedure thoracentesis has been explained to the patient patient would like to proceed to relieve symptoms 04/15/2018, patient seen eval examined during the rounds patient had a rough night she became's hypoxic short of breath has a significant respiratory distress she did require extra dose of furosemide in addition required BiPAP 15/ 10 currently she is down to 6 L oxygen she is sleeping I have discussed with the oncology service about thoracentesis on the left side that may relieve some of the respiratory distress would plan to do it this afternoon On 04/16/2018 patient is currently sitting up in bed stating she feels much improved from yesterday. Patient underwent a thoracentesis yesterday removing 850 mL. Patient denies chest pain or shortness breath at this time. Blood pressure remains marginal. Hemoglobin level 7.2 patient is asymptomatic, no transfusion per oncology services. Will continue to monitor patient closely On 04/17/2018 patient is currently sitting up in bed A & O x 3. Patient remains on 3 L NC. Denies chest pain or shortness of breath. Hemoglobin 7.3 patient remains asymptomatic . Oncology services are following for her CLL. Cardiology services LYNSEY inhibitor has been discontinued and Lasix have been decreased to 20 mg per. On 04/18/2018 patient is currently resting comfortably in bed. Patient states she feels improved from previous days. Patient is still on 2 L nasal cannula. Patient did not wear any home O2 previously. Hemoglobin up to 8.0. oncology services are still following for her CLL. Lasix 20 twice a day. Blood pressure remains marginal. Patient continues to be asymptomatic and making good urine. On 04/19/2018 patient is currently resting comfortably in bed a known 3. Patient is currently on room air. Per pulmonary no plans for repeat thoracentesis at this point and to continue gentle diuresing. Patient denies chest pain or shortness of breath. She remains on IV Lasix 20 mg every 12 hours. Patient received 100 mg of Solu-Cortef [address] Ward per pulmonology. On 04/20/2018 patient is alert and oriented 3 in no apparent distress she is sitting up in bed without oxygen, she denies any chest pain or shortness of breath, there is no fever or chills no headache no dizziness no cough no nausea or vomiting no abdominal pain and no urinary symptoms. On 04/21/2018 patient is alert and oriented 3 in no apparent distress her shortness of breath has improved she has occasional cough otherwise she denies any symptoms chest x-ray revealing worsening pleural effusion at this time will continue to monitor till a.m. awaiting pulmonary input possible discharge tomorrow if no intervention is recommended On 04/22/2018 patient alert and oriented 3 currently receiving dialysis. Patient denies chest pain or shortness of breath. Potassium improved to 4.7. patient remains on IV Lasix 60 mg every 12 hours. Objective - Vital Signs Vital signs: Vital Signs Temp 97.7 F 04/22/18 04:00 Pulse 88 04/22/18 08:22 Resp 16 04/22/18 04:00 BP 139/88 04/22/18 04:00 Pulse Ox 95 04/22/18 04:00 Intake & Output 04/21/18 04/22/18 04/22/18 18:59 06:59 18:59 Intake Total 1608 118 Output Total 450 600 Balance 1158 -600 118 Weight 71 kg Intake: Intake, IV Titration 50 Amount Desmopressin Inj 21 mcg 50 In Sodium Chloride 0.9% 50 ml @ 200 mls/hr IVPB ONCE ONE Rx#:[id number] Oral 1558 118 Output: Urine 450 600 Stool 0 0 Other: Voiding Method Urinal Urinal # Voids 1 2 - Exam Head normocephalic Neck supple Lungs clear to auscultation bilaterally no wheezing or crackles Heart regular rate and rhythm S1-S2, no rub or gallop Abdomen is soft nontender nondistended positive bowel sounds no hepatosplenomegaly Extremities no edema Neuro alert and orientated to 3 - Labs CBC & Chem 7: 04/22/18 06:49 04/22/18 06:49 Labs: Abnormal Lab Results - Last 24 Hours (Table) 04/21/18 04/21/18 04/21/18 Range/Units 12:04 13:53 14:52 MCHC (31.0-37.0) g/dL RDW (11.5-15.5) % Plt Count (150-450) k/uL Sodium (137-145) mmol/L Potassium 5.7 H (3.5-5.1) mmol/L BUN (9-20) mg/dL Creatinine (0.66-1.25) mg/dL Glucose (74-99) mg/dL POC Glucose (mg/dL) 259 H 324 H (75-99) mg/dL Calcium (8.4-10.2) mg/dL Total Protein (6.3-8.2) g/dL Albumin (3.5-5.0) g/dL 04/21/18 04/21/18 04/21/18 Range/Units 14:55 16:35 19:28 MCHC (31.0-37.0) g/dL RDW (11.5-15.5) % Plt Count (150-450) k/uL Sodium (137-145) mmol/L Potassium 5.3 H (3.5-5.1) mmol/L BUN (9-20) mg/dL Creatinine (0.66-1.25) mg/dL Glucose (74-99) mg/dL POC Glucose (mg/dL) 319 H 194 H (75-99) mg/dL Calcium (8.4-10.2) mg/dL Total Protein (6.3-8.2) g/dL Albumin (3.5-5.0) g/dL 04/21/18 04/22/18 04/22/18 Range/Units 21:11 05:46 06:49 MCHC 30.7 L (31.0-37.0) g/dL RDW 16.1 H (11.5-15.5) % Plt Count 68 L (150-450) k/uL Sodium (137-145) mmol/L Potassium (3.5-5.1) mmol/L BUN (9-20) mg/dL Creatinine (0.66-1.25) mg/dL Glucose (74-99) mg/dL POC Glucose (mg/dL) 306 H 165 H (75-99) mg/dL Calcium (8.4-10.2) mg/dL Total Protein (6.3-8.2) g/dL Albumin (3.5-5.0) g/dL 04/22/18 Range/Units 06:49 MCHC (31.0-37.0) g/dL RDW (11.5-15.5) % Plt Count (150-450) k/uL Sodium 136 L (137-145) mmol/L Potassium (3.5-5.1) mmol/L BUN 91 H* (9-20) mg/dL Creatinine 4.14 H (0.66-1.25) mg/dL Glucose 151 H (74-99) mg/dL POC Glucose (mg/dL) (75-99) mg/dL Calcium 8.3 L (8.4-10.2) mg/dL Total Protein 4.5 L (6.3-8.2) g/dL Albumin 2.6 L (3.5-5.0) g/dL Assessment and Plan Assessment: 1. Hypoxic, Hypercapnic respiratory failure multifactorial secondary to acute CHF exacerbation initially as well as acute COPD exacerbation. No pneumonia as per pulmonary. Patient remains on Solu-Medrol pulmonary services. Patient remains on high flow 6L. Patient remains on azithromycin per pulmonary. Antibiotics have been completed per pulmonology. Patient currently on prednisone 40 mg daily 2. Troponin 0.063, acute non-STEMI ruled out as per cardiology and attributed to cardiomyopathy ,oxygen supply and demand mismatch. 3. Acute on chronic renal failure, stage III, worsening, secondary to urinary retention, cardiorenal syndrome. ATN. Patient received dialysis access the right femoral vein per Dr. Pandey yesterday. Patient received dialysis with 1 L off yesterday and will receive dialysis again today per nephrology. Creatinine 3.88, bun 108. Potassium increasing to 6.1 today. Per nursing staff patient will get dialysis again today. Nephrology services are following. Per nephrology patient will get dialysis tomorrow. Patient will get IJ permacath per Dr. Pandey today. Patient did receive dialysis the past 3 days. Potassium improving to 4.7. Receiving dialysis today. Bun 91, creatinine 4.14 4. CAD,HTN, Hyperlipidemia. 5. Diabetes mellitus type 2, hemoglobin A1c 6.6 6. Chronic hypoxic respiratory failure 7. Chronic sleep apnea 8. Severe ischemic cardiomyopathy, AICD, EF 40-45% with acute on chronic systolic dysfunction. Current echo reporting EF 50-55%. Cardiology currently following on an as-needed basis 9. Bipolar 10. Ongoing nicotine dependence 11 .Right renal cyst, prominent prostate, and possible isoechoic lesion on the left kidney, in view of urinary retention , w/u as per urology. Patient currently has adequate urine output 12. Hyperkalemia. Potassium today 5.4 we'll continue to monitor closely patient received dialysis today. Calcium 6.1 patient will receive dialysis today. Potassium 5.5 today per nephrology will receive a dose of insulin and D50. Nephrology has added Lasix 60 mg twice a day. Potassium improving to 4.7 13. Thrombocytopenia. Platelets 84. Appears to be a chronic issue for patient. We'll continue to monitor closely 14. Episode of ventricular tachycardia during dialysis. Could possibly be related to elevated potassium level. Cardiology services have been reconsulted. Continuing current medication of Lopressor 25 mg twice a day per cardiology DVT prophylaxis SCD, patient did have low platelets. GI prophylaxis Pepcid I performed an examination of the patient and discussed their management with the Nurse Practitioner. I have reviewed the Nurse Practitioner's notes and agree with the documented findings and plan of care
[2018-04-22 12:23] LABS: Glucose,Whole Blood 135 mg/dL (75-99)
[2018-04-22] MEDS: ALLOPURINOL 100 MG TAB PO SCH (12:49)
[2018-04-22] MEDS: amLODIPine 5 MG TAB PO SCH (12:49)
[2018-04-22] MEDS: hydrALAZINE HCL 50 MG TAB PO SCH ×2 (12:50→18:09)
[2018-04-22] MEDS: FAMOTIDINE 20 MG TAB PO SCH (12:50)
[2018-04-22] MEDS: ESCITALOPRAM 20 MG TAB PO SCH (12:50)
[2018-04-22] MEDS: FUROSEMIDE 10 MG/ML 10 ML VIAL IV SCH (12:50)
[2018-04-22] MEDS: GABAPENTIN 300 MG CAP PO SCH (12:50)
[2018-04-22] MEDS: predniSONE 20 MG TAB PO SCH (12:51)
--- NOTE | 2018-04-22 13:29 | P.PN ---
Subjective Patient is seen in follow-up for acute kidney injury on chronic kidney disease. He is currently maintained on hemodialysis. His femoral catheter was removed and a permacath was placed on April 20. Currently resting in bed. He is nonoliguric. Denies chest pain or shortness of breath. Potassium is 4.7 this morning. Tolerated HD well this AM. Vital signs are stable. General: The patient appeared well nourished and normally developed. HEENT: Head exam is unremarkable. Neck is without jugular venous distension. LUNGS: Lungs are clear to auscultation and percussion. Breath sounds decreased. HEART: Rate and Rhythm are regular. First and second heart sounds normal. No murmurs, rubs or gallops. ABDOMEN: Abdominal exam reveals normal bowel sounds. Non-tender and non- distended. No evidence of peritonitis. EXTREMITITES: No clubbing, cyanosis, or edema. Objective - Vital Signs Vital signs: Vital Signs Temp 97.7 F 04/22/18 04:00 Pulse 92 04/22/18 11:49 Resp 16 04/22/18 08:00 BP 122/78 04/22/18 08:00 Pulse Ox 96 04/22/18 08:00 Intake & Output 04/21/18 04/22/18 04/22/18 18:59 06:59 18:59 Intake Total 1608 478 Output Total 450 600 Balance 1158 -600 478 Weight 71 kg Intake: Intake, IV Titration 50 Amount Desmopressin Inj 21 mcg 50 In Sodium Chloride 0.9% 50 ml @ 200 mls/hr IVPB ONCE ONE Rx#:[id number] Oral 1558 478 Output: Urine 450 600 Stool 0 0 Other: Voiding Method Urinal Urinal # Voids 1 2 1 - Labs CBC & Chem 7: 04/22/18 06:49 04/22/18 06:49 Labs: Abnormal Lab Results - Last 24 Hours (Table) 04/21/18 04/21/18 04/21/18 Range/Units 13:53 14:52 14:55 MCHC (31.0-37.0) g/dL RDW (11.5-15.5) % Plt Count (150-450) k/uL Sodium (137-145) mmol/L Potassium (3.5-5.1) mmol/L BUN (9-20) mg/dL Creatinine (0.66-1.25) mg/dL Glucose (74-99) mg/dL POC Glucose (mg/dL) 259 H 324 H 319 H (75-99) mg/dL Calcium (8.4-10.2) mg/dL Total Protein (6.3-8.2) g/dL Albumin (3.5-5.0) g/dL 04/21/18 04/21/18 04/21/18 Range/Units 16:35 19:28 21:11 MCHC (31.0-37.0) g/dL RDW (11.5-15.5) % Plt Count (150-450) k/uL Sodium (137-145) mmol/L Potassium 5.3 H (3.5-5.1) mmol/L BUN (9-20) mg/dL Creatinine (0.66-1.25) mg/dL Glucose (74-99) mg/dL POC Glucose (mg/dL) 194 H 306 H (75-99) mg/dL Calcium (8.4-10.2) mg/dL Total Protein (6.3-8.2) g/dL Albumin (3.5-5.0) g/dL 04/22/18 04/22/18 04/22/18 Range/Units 05:46 06:49 06:49 MCHC 30.7 L (31.0-37.0) g/dL RDW 16.1 H (11.5-15.5) % Plt Count 68 L (150-450) k/uL Sodium 136 L (137-145) mmol/L Potassium (3.5-5.1) mmol/L BUN 91 H* (9-20) mg/dL Creatinine 4.14 H (0.66-1.25) mg/dL Glucose 151 H (74-99) mg/dL POC Glucose (mg/dL) 165 H (75-99) mg/dL Calcium 8.3 L (8.4-10.2) mg/dL Total Protein 4.5 L (6.3-8.2) g/dL Albumin 2.6 L (3.5-5.0) g/dL 04/22/18 Range/Units 12:12 MCHC (31.0-37.0) g/dL RDW (11.5-15.5) % Plt Count (150-450) k/uL Sodium (137-145) mmol/L Potassium (3.5-5.1) mmol/L BUN (9-20) mg/dL Creatinine (0.66-1.25) mg/dL Glucose (74-99) mg/dL POC Glucose (mg/dL) 135 H (75-99) mg/dL Calcium (8.4-10.2) mg/dL Total Protein (6.3-8.2) g/dL Albumin (3.5-5.0) g/dL Assessment and Plan Plan: Assessment: 1. Acute kidney injury secondary to ATN secondary to cardiorenal syndrome. Currently maintained on hemodialysis. Last hemodialysis this AM. 2. Chronic kidney disease stage III with baseline creatinine in the range of 1.4-1.8. 3. Diastolic CHF. 4. Volume overload. Improved with ultrafiltration and diuresis. 5. Hyperkalemia secondary to acute kidney injury. Hyperglycemia has resolved. No significant metabolic acidosis. Improved with HD. 6. Generalized debility. 7. COPD exacerbation with purulent tracheobronchitis. Pulmonology following. Plan: Hemodialysis Sunday. Continue Lasix 60 mg IV twice daily - change to PO upon discharge. Maintain low potassium diet. Continue to monitor for renal recovery as an outpatient. Stable to be discharged home from nephrology standpoint.
--- NOTE | 2018-04-22 13:49 | P.DS ---
Providers Date of admission: 04/09/18 18:03 Expected date of discharge: 04/22/18 Attending physician: Tess Regalado Consults: 04/09/18 18:03 Consult Physician Routine Consulting Provider: Sylvia Gan Consult Reason/Comments: known Do you want consulting provider notified?: Yes Consult Physician Routine Consulting Provider: Alma Holland Consult Reason/Comments: chf Do you want consulting provider notified?: Yes 04/11/18 15:08 Consult Physician Routine Consulting Provider: Jose Roman Consult Reason/Comments: renal failure Do you want consulting provider notified?: Yes 04/15/18 22:59 Consult Physician Routine Consulting Provider: Daniel Lainez Consult Reason/Comments: permanent prostate and he is on Hernandez catheter, with possible isoechoic les Do you want consulting provider notified?: Yes 04/16/18 09:51 Consult Physician Urgent Consulting Provider: Arvind Pandey Consult Reason/Comments: Dialysis cathether placement Do you want consulting provider notified?: Yes 04/19/18 11:49 Consult Physician Routine Consulting Provider: Isra Duran Consult Reason/Comments: episode of VTAC during dialysis Do you want consulting provider notified?: Yes Primary care physician: Tess Regalado [facility] Course: Discharge diagnosis 1. Hypoxic, Hypercapnic respiratory failure multifactorial secondary to acute CHF exacerbation initially as well as acute COPD exacerbation. No pneumonia as per pulmonary. Patient remains on Solu-Medrol pulmonary services. Patient remains on high flow 6L. Patient remains on azithromycin per pulmonary. Antibiotics have been completed per pulmonology. Patient currently on prednisone 40 mg daily. Patient will be discharged home on prednisone taper and Ceftin antibiotic 2. Troponin 0.063, acute non-STEMI ruled out as per cardiology and attributed to cardiomyopathy ,oxygen supply and demand mismatch. 3. Acute on chronic renal failure, stage III, worsening, secondary to urinary retention, cardiorenal syndrome. ATN. Patient received dialysis access the right femoral vein per Dr. Pandey yesterday. Patient received dialysis with 1 L off yesterday and will receive dialysis again today per nephrology. Creatinine 3.88, bun 108. Potassium increasing to 6.1 today. Per nursing staff patient will get dialysis again today. Nephrology services are following. Per nephrology patient will get dialysis tomorrow. Patient will get IJ permacath per Dr. Pandey today. Patient did receive dialysis the past 3 days. Potassium improving to 4.7. Receiving dialysis today. Bun 91, creatinine 4.14. Patient will be discharged home. He has been cleared for discharge from nephrology standpoint. Patient will be discharged home on 60 mg by mouth Lasix twice a day. Hemodialysis schedule Sunday patient follow-up at dialysis Center. 4. CAD,HTN, Hyperlipidemia. 5. Diabetes mellitus type 2, hemoglobin A1c 6.6 6. Chronic hypoxic respiratory failure 7. Chronic sleep apnea 8. Severe ischemic cardiomyopathy, AICD, EF 40-45% with acute on chronic systolic dysfunction. Current echo reporting EF 50-55%. Cardiology currently following on an as-needed basis 9. Bipolar 10. Ongoing nicotine dependence 11 .Right renal cyst, prominent prostate, and possible isoechoic lesion on the left kidney, in view of urinary retention , w/u as per urology. Patient currently has adequate urine output 12. Hyperkalemia. Potassium today 5.4 we'll continue to monitor closely patient received dialysis today. Calcium 6.1 patient will receive dialysis today. Potassium 5.5 today per nephrology will receive a dose of insulin and D50. Nephrology has added Lasix 60 mg twice a day. Potassium improving to 4.7 13. Thrombocytopenia. Platelets 84. Appears to be a chronic issue for patient. We'll continue to monitor closely. Platelets 68. Patient to follow- up closely with primary care provider 14. Episode of ventricular tachycardia during dialysis. Could possibly be related to elevated potassium level. Cardiology services have been reconsulted. Patient to continue current medications Hospital course Acute exacerbation of systolic heart failure with baseline ejection fraction 20% , bilateral pleural effusion left more than right, shortness of breath related to above, CLL, acute agitated delirium acute hypoxic respiratory failure Ms. Morrow presented to [facility] ED on 04/12/18 with complaints of progressive Shortness of Breath over the past few days. She was recently admitted in March of this year for exacerbation of CHF. Her Ejection Fracture on that admission revealed 20-25% per echocardiogram. It was also noted she had severe dilation of the LAD, severe aortic stenosis, and mitral regurgitation. On presentation she was in mild distress with positive orthopnea and bilateral lower extremity edema. Chest Xray revealed bilateral pleural effusions, abnormal EKG. A CT of the abdomen and pelvis was also copleted and showed likely progression of underlying CLL with progressive splenomegaly, mass effect on the left kidney, significant bilateral inguinal lymphadenopathy, retroperitoneal adenopathy with enlarged para-arotic, mesenteric, and celiac nodes. Blood pressure has been running low, this am 75/44. She is requiring 3-4Liters of oxygen to maintain saturations above 92%. Her blood counts today revealed the following: WBC = 291 , Hemoglin = 7.1, Platelets = 107BNP = 22,700. During assessment she states she is overall feeling better than admission but still very short of breath with exertion. Swelling of legs has also improved since admission. 04/14/2018, patient seen eval examined during the rounds clinically she is slightly better in terms of breathing but is still get short of breath, patient underwent ultrasound of the chest bilateral pleural effusion is noted right more than left on the right side more than 8 cm depth of fluid has been noted, procedure thoracentesis has been explained to the patient patient would like to proceed to relieve symptoms 04/15/2018, patient seen eval examined during the rounds patient had a rough night she became's hypoxic short of breath has a significant respiratory distress she did require extra dose of furosemide in addition required BiPAP 15/ 10 currently she is down to 6 L oxygen she is sleeping I have discussed with the oncology service about thoracentesis on the left side that may relieve some of the respiratory distress would plan to do it this afternoon On 04/16/2018 patient is currently sitting up in bed stating she feels much improved from yesterday. Patient underwent a thoracentesis yesterday removing 850 mL. Patient denies chest pain or shortness breath at this time. Blood pressure remains marginal. Hemoglobin level 7.2 patient is asymptomatic, no transfusion per oncology services. Will continue to monitor patient closely On 04/17/2018 patient is currently sitting up in bed A & O x 3. Patient remains on 3 L NC. Denies chest pain or shortness of breath. Hemoglobin 7.3 patient remains asymptomatic . Oncology services are following for her CLL. Cardiology services LYNSEY inhibitor has been discontinued and Lasix have been decreased to 20 mg per. On 04/18/2018 patient is currently resting comfortably in bed. Patient states she feels improved from previous days. Patient is still on 2 L nasal cannula. Patient did not wear any home O2 previously. Hemoglobin up to 8.0. oncology services are still following for her CLL. Lasix 20 twice a day. Blood pressure remains marginal. Patient continues to be asymptomatic and making good urine. On 04/19/2018 patient is currently resting comfortably in bed a known 3. Patient is currently on room air. Per pulmonary no plans for repeat thoracentesis at this point and to continue gentle diuresing. Patient denies chest pain or shortness of breath. She remains on IV Lasix 20 mg every 12 hours. Patient received 100 mg of Solu-Cortef [address] Ward per pulmonology. On 04/20/2018 patient is alert and oriented 3 in no apparent distress she is sitting up in bed without oxygen, she denies any chest pain or shortness of breath, there is no fever or chills no headache no dizziness no cough no nausea or vomiting no abdominal pain and no urinary symptoms. On 04/21/2018 patient is alert and oriented 3 in no apparent distress her shortness of breath has improved she has occasional cough otherwise she denies any symptoms chest x-ray revealing worsening pleural effusion at this time will continue to monitor till a.m. awaiting pulmonary input possible discharge tomorrow if no intervention is recommended On 04/22/2018 patient alert and oriented 3 currently receiving dialysis. Patient denies chest pain or shortness of breath. Potassium improved to 4.7. patient remains on IV Lasix 60 mg every 12 hours. Patient has been cleared for discharge from nephrology standpoint. Patient will follow up outpatient with hemodialysis Sunday. Patient will be discharged home on 60 mg Lasix twice a day per nephrology. Patient is going home on 4 L nasal cannula. Patient does have set up at home. Patient will follow-up closely outpatient with primary care provider and consulting physicians. Patient Condition at Discharge: Stable Plan - Discharge Summary Discharge Rx Participant: No New Discharge Prescriptions: New predniSONE 10 mg PO DAILY #30 tab Cefuroxime Axetil [Ceftin] 500 mg PO BID #14 tab Furosemide [Lasix] 60 mg PO BID #90 tab Continue traZODone HCL [Desyrel] 200 mg PO HS amLODIPine [Norvasc] 10 mg PO DAILY Allopurinol [Zyloprim] 100 mg PO DAILY QUEtiapine [SEROquel] 200 mg PO HS Pregabalin [Lyrica] 75 mg PO BID Fluticasone/Vilanterol [Breo Ellipta 100-25 Mcg Inhaler] 1 puff INHALATION RT -DAILY Albuterol Inhaler [Ventolin Hfa Inhaler] 2 puff INHALATION RT-QID PRN PRN Reason: Shortness Of Breath Pravastatin Sodium [Pravachol] 40 mg PO HS Carvedilol [Coreg*] 12.5 mg PO BID-W/MEALS #30 tab hydrALAZINE HCL [Apresoline] 50 mg PO TID #60 tab Gabapentin [Neurontin] 300 mg PO DAILY Buprenorphine HCl/Naloxone HCl [Zubsolv 5.7-1.4 mg Tablet Sl] 1 tab SUBLINGUAL BID PRN PRN Reason: WITHDRAWAL HYDROcodone/APAP 5-325MG [[place] 5-325] 1 tab PO TID PRN PRN Reason: Pain Escitalopram [Lexapro] 20 mg PO DAILY Discontinued Furosemide [Lasix] 40 mg PO DAILY #30 tab cloNIDine HCL [Catapres] 0.2 mg PO BID #60 tab Lisinopril [Prinivil] 20 mg PO DAILY Discharge Medication List amLODIPine [Norvasc] 10 mg PO DAILY 01/05/16 [History] traZODone HCL [Desyrel] 200 mg PO HS 01/05/16 [History] Allopurinol [Zyloprim] 100 mg PO DAILY 05/21/17 [History] QUEtiapine [SEROquel] 200 mg PO HS 05/21/17 [History] Albuterol Inhaler [Ventolin Hfa Inhaler] 2 puff INHALATION RT-QID PRN 11/25/17 [ History] Fluticasone/Vilanterol [Breo Ellipta 100-25 Mcg Inhaler] 1 puff INHALATION RT- DAILY 11/25/17 [History] Pregabalin [Lyrica] 75 mg PO BID 11/25/17 [History] Pravastatin Sodium [Pravachol] 40 mg PO HS 01/14/18 [History] Carvedilol [Coreg*] 12.5 mg PO BID-W/MEALS #30 tab 01/20/18 [Rx] hydrALAZINE HCL [Apresoline] 50 mg PO TID #60 tab 01/20/18 [Rx] Buprenorphine HCl/Naloxone HCl [Zubsolv 5.7-1.4 mg Tablet Sl] 1 tab SUBLINGUAL BID PRN 04/09/18 [History] Escitalopram [Lexapro] 20 mg PO DAILY 04/09/18 [History] Gabapentin [Neurontin] 300 mg PO DAILY 04/09/18 [History] HYDROcodone/APAP 5-325MG [[place] 5-325] 1 tab PO TID PRN 04/09/18 [History] Cefuroxime Axetil [Ceftin] 500 mg PO BID #14 tab 04/12/18 [Rx] predniSONE 10 mg PO DAILY #30 tab 04/12/18 [Rx] Furosemide [Lasix] 60 mg PO BID #90 tab 04/22/18 [Rx] Follow up Appointment(s)/Referral(s): Sylvia Gan MD [STAFF PHYSICIAN] - 04/26/18 10:15 am (Sunday) Sushila Flores MD [STAFF PHYSICIAN] - 1 Week (Nephrology will follow up at dialysis treatments.) Daniel Lainez MD [STAFF PHYSICIAN] - 1 Week (abnormal renal ultrasound and urinary retention) [facility], [NON-STAFF] - As Needed Arvind Pandey MD [STAFF PHYSICIAN] - 1 Week Tess Regalado MD [Primary Care Provider] - 1-2 Days Patient Instructions/Handouts: COPD (Chronic Obstructive Pulmonary Disease) (DC ), Chronic Lung Disease and Infection Prevention (DC) Activity/Diet/Wound Care/Special Instructions: Please arrive at the [facility] on Sunday at 11:30am. Current hemodialysis schedule is every Sunday/Sunday/Sunday at 11:30am. [facility] in [place] - Discharge Disposition: HOME WITH HOME HEALTH SERVICES
[2018-04-22 16:44] LABS: Glucose,Whole Blood 251 mg/dL (75-99)
[2018-04-22 17:49] VITALS: RESP 18
[2018-04-22 17:52] VITALS: BP 130/89; PULSE 100
[2018-04-22] MEDS: PREGABALIN 75 MG CAP PO SCH (17:53)
== END 2018-04-22 18:36 | disposition home health service (06) | DRG 190 ==
LOC: EC 16:18 → 6SEL 18:03
PROVIDERS: ADMIT Internal Medicine; ATTEND Internal Medicine
PROC: 5A09557 Assistance with Respiratory Ventilation, Greater than 96 Consecutive Hours, Continuous Positive Airway Pressure (ICD-10-PCS; 2018-04-09)
PROC: 5A1D70Z Performance of Urinary Filtration, Intermittent, Less than 6 Hours Per Day (ICD-10-PCS; 2018-04-16)
PROC: 06H033Z Insertion of Infusion Device into Inferior Vena Cava, Percutaneous Approach (ICD-10-PCS; principal; 2018-04-16 14:25)
PROC: 5A1D70Z Performance of Urinary Filtration, Intermittent, Less than 6 Hours Per Day (ICD-10-PCS; 2018-04-17)
PROC: 5A1D70Z Performance of Urinary Filtration, Intermittent, Less than 6 Hours Per Day (ICD-10-PCS; 2018-04-18)
PROC: 02HV33Z Insertion of Infusion Device into Superior Vena Cava, Percutaneous Approach (ICD-10-PCS; 2018-04-19)
PROC: 02PA33Z Removal of Infusion Device from Heart, Percutaneous Approach (ICD-10-PCS; 2018-04-19 08:55)
PROC: 02HV33Z Insertion of Infusion Device into Superior Vena Cava, Percutaneous Approach (ICD-10-PCS; 2018-04-20)
PROC: 02PY33Z Removal of Infusion Device from Great Vessel, Percutaneous Approach (ICD-10-PCS; 2018-04-20)
PROC: 5A1D70Z Performance of Urinary Filtration, Intermittent, Less than 6 Hours Per Day (ICD-10-PCS; 2018-04-20)
PROC: 5A1D70Z Performance of Urinary Filtration, Intermittent, Less than 6 Hours Per Day (ICD-10-PCS; 2018-04-22)
DX: J44.0 Chronic obstructive pulmonary disease with (acute) lower respiratory infection (principal); I50.23 Acute on chronic systolic (congestive) heart failure; J96.21 Acute and chronic respiratory failure with hypoxia; N17.0 Acute kidney failure with tubular necrosis; J96.22 Acute and chronic respiratory failure with hypercapnia; I21.A1 Myocardial infarction type 2; I13.0 Hypertensive heart and chronic kidney disease with heart failure and stage 1 through stage 4 chronic kidney disease, or unspecified chronic kidney disease; J98.11 Atelectasis; N39.0 Urinary tract infection, site not specified; C91.10 Chronic lymphocytic leukemia of B-cell type not having achieved remission; I47.2 Ventricular tachycardia; J44.1 Chronic obstructive pulmonary disease with (acute) exacerbation; E11.42 Type 2 diabetes mellitus with diabetic polyneuropathy; E11.21 Type 2 diabetes mellitus with diabetic nephropathy; Z66 Do not resuscitate; J20.9 Acute bronchitis, unspecified; N28.1 Cyst of kidney, acquired; N18.3 Chronic kidney disease, stage 3 (moderate); E11.22 Type 2 diabetes mellitus with diabetic chronic kidney disease; D69.6 Thrombocytopenia, unspecified; E11.65 Type 2 diabetes mellitus with hyperglycemia; D75.1 Secondary polycythemia; E87.5 Hyperkalemia; I08.0 Rheumatic disorders of both mitral and aortic valves; F31.9 Bipolar disorder, unspecified; T38.0X5A Adverse effect of glucocorticoids and synthetic analogues, initial encounter; S93.401D Sprain of unspecified ligament of right ankle, subsequent encounter; I25.10 Atherosclerotic heart disease of native coronary artery without angina pectoris; E78.5 Hyperlipidemia, unspecified; I25.2 Old myocardial infarction; G47.33 Obstructive sleep apnea (adult) (pediatric); F17.210 Nicotine dependence, cigarettes, uncomplicated; Z71.6 Tobacco abuse counseling; I25.5 Ischemic cardiomyopathy; Z79.891 Long term (current) use of opiate analgesic; Z79.51 Long term (current) use of inhaled steroids; Z79.899 Other long term (current) drug therapy; Z95.5 Presence of coronary angioplasty implant and graft; Z95.810 Presence of automatic (implantable) cardiac defibrillator; Z87.01 Personal history of pneumonia (recurrent); Z88.0 Allergy status to penicillin; Z82.49 Family history of ischemic heart disease and other diseases of the circulatory system; Z80.9 Family history of malignant neoplasm, unspecified; Z99.2 Dependence on renal dialysis
CPT/HCPCS: 36415; 36556; 36569; 71045; 71046; 76770; 76937; 77001; 80048; 80053; 80074; 81001; 82550; 82553; 83036; 83735; 83880; 84132; 84484; 85025; 85379; 85610; 85730; 86701; 86704; 86803; 87070; 87086; 87205; 87340; 90935; 93005; 93306; 94640; 94644; 94660; 94760; 96374; 99291

== ENCOUNTER 2018-04-26 13:56 | Inpatient (IN) | payer MEDICARE, OTHER ==
[2018-04-26] MEDS ORDERED: SODIUM CHLORIDE 0.9% 500 ML IV STA (14:02)
[2018-04-26] MEDS ORDERED: IPRATROPIUM 0.5 MG/2.5 ML NEBU INHALATION STA (14:02)
[2018-04-26] MEDS ORDERED: ALBUTEROL NEBULIZED 2.5 MG/3 ML INHALATION STA (14:02)
--- NOTE | 2018-04-26 14:13 | ED ---
Dizziness HPI - General Chief Complaint: Syncope Stated Complaint: Syncope Time Seen by Provider: 04/26/18 14:00 Source: patient Mode of arrival: ambulatory Limitations: no limitations - Related Data Home Medications Medication Instructions Recorded Confirmed amLODIPine [Norvasc] 10 mg PO DAILY 01/05/16 04/26/18 traZODone HCL [Desyrel] 200 mg PO HS 01/05/16 04/26/18 Allopurinol [Zyloprim] 100 mg PO DAILY 05/21/17 04/26/18 QUEtiapine [SEROquel] 200 mg PO HS 05/21/17 04/26/18 Albuterol Inhaler [Ventolin Hfa 2 puff INHALATION RT-QID PRN 11/25/17 04/26/18 Inhaler] Fluticasone/Vilanterol [Breo 1 puff INHALATION RT-DAILY 11/25/17 04/26/18 Ellipta 100-25 Mcg Inhaler] Pregabalin [Lyrica] 75 mg PO BID 11/25/17 04/26/18 Pravastatin Sodium [Pravachol] 40 mg PO HS 01/14/18 04/26/18 Buprenorphine HCl/Naloxone HCl 1 tab SUBLINGUAL BID PRN 04/09/18 04/26/18 [Zubsolv 5.7-1.4 mg Tablet Sl] Escitalopram [Lexapro] 20 mg PO DAILY 04/09/18 04/26/18 Gabapentin [Neurontin] 300 mg PO DAILY 04/09/18 04/26/18 HYDROcodone/APAP 5-325MG [[place] 1 tab PO TID PRN 04/09/18 04/26/18 5-325] Carvedilol [Coreg] 12.5 mg PO BID 04/26/18 04/26/18 Previous Rx's Medication Instructions Recorded hydrALAZINE HCL [Apresoline] 50 mg PO TID #60 tab 01/20/18 Furosemide [Lasix] 60 mg PO BID #90 tab 04/22/18 Allergies Allergy/AdvReac Type Severity Reaction Status Date / Time Penicillins Allergy Unknown Verified 04/26/18 14:43 Review of Systems ROS Statement: Those systems with pertinent positive or pertinent negative responses have been documented in the HPI. ROS Other: All systems not noted in ROS Statement are negative. Past Medical History Past Medical History: Coronary Artery Disease (CAD), Chest Pain / Angina, Heart Failure, COPD, Diabetes Mellitus, Hyperlipidemia, Hypertension, Myocardial Infarction ([place]), Pneumonia, Renal Disease, Sleep Apnea/CPAP/BIPAP Additional Past Medical History / Comment(s): COPD, suspected obstructive sleep apnea, chronic hypoxic and hypercapnic the story failure, insulin-dependent diabetes mellitus, diabetic peripheral neuropathy, diabetic nephropathy, chronic renal failure with stage III chronic kidney disease with a baseline creatinine of 1.6-1.7, history of CHF and based on that echocardiogram that was done in 2018, the patient had a ejection fraction of 40-45%, history of severe ischemic cardiac myopathy and the patient has a AICD in place, coronary artery disease, hypertension, hyperlipidemia, depression him a previous history of acute respiratory failure requiring intubation mechanical ventilation, bipolar disorder, right ankle sprain wearing a immobilizing boot on outpatient basis Last Myocardial Infarction Date:: 2004 History of Any Multi-Drug Resistant Organisms: None Reported Past Surgical History: AICD, Heart Catheterization With Stent, Pacemaker Past Anesthesia/Blood Transfusion Reactions: No Reported Reaction Date of Last Stent Placement:: 2004 Type of Cardiac Device: Permanent Pacemaker, AICD Device Placement Date:: 09/2004 Past Psychological History: Bipolar Smoking Status: Current every day smoker Past Alcohol Use History: None Reported Past Drug Use History: None Reported - Past Family History Father Family Medical History: Cancer Additional Family Medical History / Comment(s): Paternal grandfather with CAD Mother Family Medical History: Cancer Additional Family Medical History / Comment(s): Maternal grandmother had CAD. Mother had cancer. General Exam Limitations: no limitations Course Vital Signs 04/26/18 04/26/18 04/26/18 14:03 14:07 14:15 Temperature 98.7 F Pulse Rate 96 94 Respiratory 20 20 Rate Blood Pressure 102/59 O2 Sat by Pulse 88 L Oximetry 04/26/18 14:28 Temperature Pulse Rate 99 Respiratory Rate Blood Pressure O2 Sat by Pulse Oximetry EKG Findings - EKG Comments: EKG Findings:: EKG shows sinus rhythm at 94, DE 170, QRS 134, QTC 485 Medical Decision Making - Lab Data Result diagrams: 04/26/18 14:19 04/26/18 14:19 Lab Results 04/26/18 04/26/18 04/26/18 Range/Units 14:19 14:19 14:19 WBC 22.7 H (3.8-10.6) k/uL RBC 4.79 (4.30-5.90) m/uL Hgb 13.0 (13.0-17.5) gm/dL Hct 40.8 (39.0-53.0) % MCV 85.2 (80.0-100.0) fL MCH 27.2 (25.0-35.0) pg MCHC 32.0 (31.0-37.0) g/dL RDW 16.0 H (11.5-15.5) % Plt Count 85 L (150-450) k/uL Neutrophils % 85 % Lymphocytes % 9 % Monocytes % 4 % Eosinophils % 1 % Basophils % 0 % Neutrophils # 19.4 H (1.3-7.7) k/uL Lymphocytes # 2.1 (1.0-4.8) k/uL Monocytes # 0.9 (0-1.0) k/uL Eosinophils # 0.2 (0-0.7) k/uL Basophils # 0.0 (0-0.2) k/uL Anisocytosis Slight PT (9.0-12.0) sec INR (<1.2) APTT (22.0-30.0) sec D-Dimer (<0.60) mg/L FEU Sodium 140 (137-145) mmol/L Potassium 4.7 (3.5-5.1) mmol/L Chloride 104 (98-107) mmol/L Carbon Dioxide 29 (22-30) mmol/L Anion Gap 7 mmol/L BUN 59 H (9-20) mg/dL Creatinine 6.20 H* (0.66-1.25) mg/dL Est GFR (CKD-EPI)AfAm 11 (>60 ml/min/1.73 sqM) Est GFR (CKD-EPI)NonAf 9 (>60 ml/min/1.73 sqM) Glucose 133 H (74-99) mg/dL Calcium 8.3 L (8.4-10.2) mg/dL Magnesium 1.9 (1.6-2.3) mg/dL Total Bilirubin 0.5 (0.2-1.3) mg/dL AST 26 (17-59) U/L ALT 52 (21-72) U/L Alkaline Phosphatase 65 (38-126) U/L Total Creatine Kinase 29 L (55-170) U/L CK-MB (CK-2) 2.1 (0.0-2.4) ng/mL CK-MB (CK-2) Rel Index 7.2 Troponin I 0.142 H* (0.000-0.034) ng/mL NT-Pro-B Natriuret Pep pg/mL Total Protein 4.9 L (6.3-8.2) g/dL Albumin 2.7 L (3.5-5.0) g/dL 04/26/18 04/26/18 04/26/18 Range/Units 14:19 14:19 14:19 WBC (3.8-10.6) k/uL RBC (4.30-5.90) m/uL Hgb (13.0-17.5) gm/dL Hct (39.0-53.0) % MCV (80.0-100.0) fL MCH (25.0-35.0) pg MCHC (31.0-37.0) g/dL RDW (11.5-15.5) % Plt Count (150-450) k/uL Neutrophils % % Lymphocytes % % Monocytes % % Eosinophils % % Basophils % % Neutrophils # (1.3-7.7) k/uL Lymphocytes # (1.0-4.8) k/uL Monocytes # (0-1.0) k/uL Eosinophils # (0-0.7) k/uL Basophils # (0-0.2) k/uL Anisocytosis PT 9.8 (9.0-12.0) sec INR 1.0 (<1.2) APTT 44.8 H (22.0-30.0) sec D-Dimer 1.35 H (<0.60) mg/L FEU Sodium (137-145) mmol/L Potassium (3.5-5.1) mmol/L Chloride (98-107) mmol/L Carbon Dioxide (22-30) mmol/L Anion Gap mmol/L BUN (9-20) mg/dL Creatinine (0.66-1.25) mg/dL Est GFR (CKD-EPI)AfAm (>60 ml/min/1.73 sqM) Est GFR (CKD-EPI)NonAf (>60 ml/min/1.73 sqM) Glucose (74-99) mg/dL Calcium (8.4-10.2) mg/dL Magnesium (1.6-2.3) mg/dL Total Bilirubin (0.2-1.3) mg/dL AST (17-59) U/L ALT (21-72) U/L Alkaline Phosphatase (38-126) U/L Total Creatine Kinase (55-170) U/L CK-MB (CK-2) (0.0-2.4) ng/mL CK-MB (CK-2) Rel Index Troponin I (0.000-0.034) ng/mL NT-Pro-B Natriuret Pep 520 pg/mL Total Protein (6.3-8.2) g/dL Albumin (3.5-5.0) g/dL Disposition Clinical Impression: CHF (congestive heart failure), Renal insufficiency syndrome, COPD (chronic obstructive pulmonary disease), Systolic CHF, acute on chronic, COPD exacerbation, Vasovagal syncope, Hypoxia Disposition: ADMITTED IP TO THIS HOSP Condition: Fair Is patient prescribed a controlled substance at d/c from ED?: No Referrals: Tess Regalado MD [Primary Care Provider] - 1-2 days
--- NOTE | 2018-04-26 14:36 | XR ---
EXAMINATION TYPE: XR chest 1V portable DATE OF EXAM: 04/26/2018 COMPARISON: 04/20/2018 HISTORY: Shortness of breath. TECHNIQUE: Single frontal view of the chest is obtained. FINDINGS: There is new patchy right basilar airspace disease in comparison to the prior. Dual-lumen right-sided hemodialysis catheter is unchanged in position. There is a dual-lead left-sided cardiac d evice noted. Cardiac silhouette is mildly enlarged. No discrete pulmonary vascular congestion. Costop hrenic angles are blunted and could relate to very trace pleural effusions. No sizable pneumothorax. IMPRESSION: New right basilar airspace disease that given the lack of pulmonary vascular congestion is suspicious for pneumonia although could represent atelectasis.
[2018-04-26 14:45] LABS: Partial Thromboplastin Time 44.8 sec (22.0-30.0); Prothrombin Time 9.8 sec (9.0-12.0)
[2018-04-26 14:51] LABS: Anisocytosis Slight; Basophils % (A) 0 %; Eosinophils # (A) 0.2 k/uL (0-0.7); Eosinophils % (A) 1 %; HCT 40.8 % (39.0-53.0); Lymphocytes # (A) 2.1 k/uL (1.0-4.8); Lymphocytes % (A) 9 %; MCH 27.2 pg (25.0-35.0); MCV 85.2 fL (80.0-100.0); Mean Platelet Volume 10.8; Monocytes # (A) 0.9 k/uL (0-1.0); Monocytes % (A) 4 %; Neutrophils # (A) 19.4 k/uL (1.3-7.7); Neutrophils % (A) 85 %; RBC 4.79 m/uL (4.30-5.90); WBC 22.7 k/uL (3.8-10.6)
[2018-04-26 14:53] LABS: Platelet Count 85 k/uL (150-450)
[2018-04-26 15:05] LABS: Creatine Kinase MB 2.1 ng/mL (0.0-2.4)
[2018-04-26 15:24] LABS: Troponin I 0.142 ng/mL (0.000-0.034)
[2018-04-26 15:26] LABS: Albumin 2.7 g/dL (3.5-5.0); Calcium 8.3 mg/dL (8.4-10.2); Magnesium 1.9 mg/dL (1.6-2.3); Potassium 4.7 mmol/L (3.5-5.1); Total Bilirubin 0.5 mg/dL (0.2-1.3); Total Protein 4.9 g/dL (6.3-8.2)
[2018-04-26] MEDS ORDERED: methylPREDNISolone SOD SUCCI 125 MG/2 ML VIAL IV STA (15:34)
[2018-04-26] MEDS ORDERED: IPRATROPIUM-ALBUTEROL 3 ML NEB INHALATION SCH (16:00)
[2018-04-26] MEDS ORDERED: AZITHROMYCIN 500 MG in SODIUM CHLORIDE 0.9% 250 ML IVPB STA (16:36)
[2018-04-26] MEDS ORDERED: CEFEPIME 2 GM in SODIUM CHLORIDE 0.9% 50 ML IVPB STA (16:36)
[2018-04-26] MEDS ORDERED: VANCOMYCIN 2,000 MG in SODIUM CHLORIDE 0.9% 500 ML IVPB SCH (16:45)
[2018-04-26 16:57] VITALS: PULSE 92
[2018-04-26] MEDS ORDERED: VANCOMYCIN IV PER PHARMACY 1 EACH MISC MISCELLANE ONE (17:00)
[2018-04-26] MEDS ORDERED: VANCOMYCIN 1,750 MG in SODIUM CHLORIDE 0.9% 500 ML IVPB ONE (17:00)
--- NOTE | 2018-04-26 17:14 | NM ---
EXAMINATION TYPE: NM pul vent and perfuse DATE OF EXAM: 04/26/2018 COMPARISON: 11/27/2017 HISTORY: Short of breath TECHNIQUE: Utilizing inhalation of 36 mCi Tc 99m DTPA aerosol and intravenous injection of 5.4 mCi o f Tc 99m MAA, ventilation and perfusion images are acquired post injection in multiple projections. FINDINGS: There are large ventilation abnormalities at the lung bases. The perfusion images are relatively norm al. There is decreased ventilation of most of the right lower lobe and the superior segment and poste rior basal segment of the left lower lobe. IMPRESSION: There is a low probability of pulmonary embolism. Large ventilation abnormalities at the lung bases a re significantly increased compared to last exam and consistent with airway disease.
[2018-04-26] MEDS ORDERED: methylPREDNISolone SOD SUCCI 125 MG/2 ML VIAL IV SCH (18:00)
[2018-04-26 19:00] VITALS: BP 110/68; RESP 16; TEMP 97.8
[2018-04-27] MEDS ORDERED: VANCOMYCIN 1,750 MG in SODIUM CHLORIDE 0.9% 500 ML IVPB SCH (08:00)
[2018-04-27] MEDS ORDERED: ENOXAPARIN 40 MG/0.4 ML SYRINGE SQ SCH (09:00)
== END 2018-04-26 18:54 | disposition left against medical advice (07) | DRG 190 ==
LOC: EC 13:56 → 6SEL 15:34
PROVIDERS: ADMIT Internal Medicine; ATTEND Internal Medicine
DX: J44.1 Chronic obstructive pulmonary disease with (acute) exacerbation (principal); I50.23 Acute on chronic systolic (congestive) heart failure; I13.0 Hypertensive heart and chronic kidney disease with heart failure and stage 1 through stage 4 chronic kidney disease, or unspecified chronic kidney disease; J96.12 Chronic respiratory failure with hypercapnia; J96.11 Chronic respiratory failure with hypoxia; E11.21 Type 2 diabetes mellitus with diabetic nephropathy; E11.42 Type 2 diabetes mellitus with diabetic polyneuropathy; E11.22 Type 2 diabetes mellitus with diabetic chronic kidney disease; N18.3 Chronic kidney disease, stage 3 (moderate); N28.1 Cyst of kidney, acquired; I25.5 Ischemic cardiomyopathy; R55 Syncope and collapse; G47.33 Obstructive sleep apnea (adult) (pediatric); F32.9 Major depressive disorder, single episode, unspecified; I25.10 Atherosclerotic heart disease of native coronary artery without angina pectoris; F31.9 Bipolar disorder, unspecified; E78.5 Hyperlipidemia, unspecified; F17.200 Nicotine dependence, unspecified, uncomplicated; I25.2 Old myocardial infarction; Z53.21 Procedure and treatment not carried out due to patient leaving prior to being seen by health care provider; Z79.51 Long term (current) use of inhaled steroids; Z79.899 Other long term (current) drug therapy; Z87.01 Personal history of pneumonia (recurrent); Z95.810 Presence of automatic (implantable) cardiac defibrillator; Z80.9 Family history of malignant neoplasm, unspecified; Z82.49 Family history of ischemic heart disease and other diseases of the circulatory system
CPT/HCPCS: 36415; 71045; 78582; 80053; 82550; 82553; 83735; 83880; 84484; 85025; 85379; 85610; 85730; 93005; 94640; 96360; 99285

== ENCOUNTER 2018-04-29 17:39 | Inpatient (IN) | payer MEDICARE, OTHER ==
[2018-04-29] MEDS ORDERED: IPRATROPIUM-ALBUTEROL 3 ML NEB INHALATION STA (18:10)
[2018-04-29] MEDS ORDERED: SODIUM CHLORIDE 0.9% 1,000 ML IV STA (18:10)
[2018-04-29 19:23] LABS: Appearance,Urine Clear (Clear); Bilirubin,Urine Negative (Negative); Blood,Urine Negative (Negative); Color,Urine Yellow; Glucose,Urine (UA) Negative (Negative); Ketones,Urine Negative (Negative); Leukocyte Esterase,Urine Negative (Negative); Nitrite,Urine Negative (Negative); Protein,Urine Trace (Negative); Specific Gravity,Urine 1.009 (1.001-1.035); Urobilinogen,Urine <2.0 mg/dL (<2.0)
[2018-04-29 19:28] LABS: Anisocytosis Slight; Basophils % (A) 0 %; Eosinophils # (A) 0.2 k/uL (0-0.7); Eosinophils % (A) 3 %; HCT 37.7 % (39.0-53.0); HGB 11.7 gm/dL (13.0-17.5); Hypochromasia Moderate; Lymphocytes # (A) 1.4 k/uL (1.0-4.8); Lymphocytes % (A) 22 %; MCH 27.6 pg (25.0-35.0); MCV 89.1 fL (80.0-100.0); Monocytes # (A) 0.3 k/uL (0-1.0); Monocytes % (A) 5 %; Neutrophils # (A) 4.2 k/uL (1.3-7.7); Neutrophils % (A) 66 %; RBC 4.23 m/uL (4.30-5.90); RDW 16.5 % (11.5-15.5); WBC 6.4 k/uL (3.8-10.6)
[2018-04-29 19:32] LABS: Albumin 2.7 g/dL (3.5-5.0); Calcium 8.1 mg/dL (8.4-10.2); Magnesium 1.8 mg/dL (1.6-2.3); Potassium 4.9 mmol/L (3.5-5.1); Total Bilirubin 0.5 mg/dL (0.2-1.3)
--- NOTE | 2018-04-29 19:32 | ED ---
General Adult HPI - General Source: EMS, RN notes reviewed, old records reviewed Mode of arrival: EMS Limitations: physical limitation <Kalyn Han - Last Filed: 04/29/18 20:23> <Alfred Owusu - Last Filed: 04/29/18 20:44> - General Chief complaint: Shortness of Breath Stated complaint: SOB Time Seen by Provider: 04/29/18 18:01 - History of Present Illness Initial comments: 57-year-old male presents return today with chief complaint of increased shortness of breath. Patient seen at this hospital on Sunday was diagnosed with pneumonia. He does have to have dialysis. He has not had dialysis since last Sunday. Patient reports that he's been having increased fatigue and shortness of breath. He states he feels weak. Patient is history of coronary disease, heart failure, COPD, diabetes, hyperlipidemia, hypertension, MIs, pneumonia. He is sleep apnea and uses CPAP. (Kalyn Han) - Related Data Home Medications Medication Instructions Recorded Confirmed amLODIPine [Norvasc] 10 mg PO DAILY 01/05/16 04/29/18 traZODone HCL [Desyrel] 200 mg PO HS 01/05/16 04/29/18 Allopurinol [Zyloprim] 100 mg PO DAILY 05/21/17 04/29/18 QUEtiapine [SEROquel] 200 mg PO HS 05/21/17 04/29/18 Albuterol Inhaler [Ventolin Hfa 2 puff INHALATION RT-QID PRN 11/25/17 04/29/18 Inhaler] Fluticasone/Vilanterol [Breo 1 puff INHALATION RT-DAILY 11/25/17 04/29/18 Ellipta 100-25 Mcg Inhaler] Pregabalin [Lyrica] 75 mg PO BID 11/25/17 04/29/18 Pravastatin Sodium [Pravachol] 40 mg PO HS 01/14/18 04/29/18 Buprenorphine HCl/Naloxone HCl 1 tab SUBLINGUAL BID PRN 04/09/18 04/29/18 [Zubsolv 5.7-1.4 mg Tablet Sl] Escitalopram [Lexapro] 20 mg PO DAILY 04/09/18 04/29/18 Gabapentin [Neurontin] 300 mg PO DAILY 04/09/18 04/29/18 HYDROcodone/APAP 5-325MG [[place] 1 tab PO TID PRN 04/09/18 04/29/18 5-325] Previous Rx's Medication Instructions Recorded Furosemide [Lasix] 60 mg PO BID #90 tab 04/22/18 Allergies Allergy/AdvReac Type Severity Reaction Status Date / Time Penicillins Allergy Unknown Verified 04/29/18 18:03 Review of Systems ROS Other: All systems not noted in ROS Statement are negative. <Kalyn Han - Last Filed: 04/29/18 20:23> ROS Other: All systems not noted in ROS Statement are negative. <Alfred Owusu - Last Filed: 04/29/18 20:44> ROS Statement: Those systems with pertinent positive or pertinent negative responses have been documented in the HPI. 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, insulin-dependent diabetes mellitus, diabetic peripheral neuropathy, diabetic nephropathy, chronic renal failure with stage III chronic kidney disease with a baseline creatinine of 1.6-1.7, history of CHF and based on that echocardiogram that was done in 2018, the patient had a ejection fraction of 40-45%, history of severe ischemic cardiac myopathy and the patient has a AICD in place, coronary artery disease, hypertension, hyperlipidemia, depression him a previous history of acute respiratory failure requiring intubation mechanical ventilation, bipolar disorder, right ankle sprain wearing a immobilizing boot on outpatient basis Last Myocardial Infarction Date:: 2004 History of Any Multi-Drug Resistant Organisms: None Reported Past Surgical History: AICD, Heart Catheterization With Stent, Pacemaker Past Anesthesia/Blood Transfusion Reactions: No Reported Reaction Date of Last Stent Placement:: 2004 Type of Cardiac Device: Permanent Pacemaker, AICD Device Placement Date:: 09/2004 Past Psychological History: Bipolar Smoking Status: Current every day smoker Past Alcohol Use History: None Reported Past Drug Use History: None Reported - Past Family History Father Family Medical History: Cancer Additional Family Medical History / Comment(s): Paternal grandfather with CAD Mother Family Medical History: Cancer Additional Family Medical History / Comment(s): Maternal grandmother had CAD. Mother had cancer. <Kalyn Han - Last Filed: 04/29/18 20:23> General Exam Limitations: physical limitation General appearance: alert, in no apparent distress Head exam: Present: atraumatic, normocephalic, normal inspection Eye exam: Present: normal appearance, PERRL, EOMI. Absent: scleral icterus, conjunctival injection, periorbital swelling ENT exam: Present: normal exam, mucous membranes moist Neck exam: Present: normal inspection. Absent: tenderness, meningismus, lymphadenopathy Respiratory exam: Present: wheezes, decreased breath sounds. Absent: normal lung sounds bilaterally, respiratory distress, rales, rhonchi, stridor Cardiovascular Exam: Present: regular rate GI/Abdominal exam: Present: soft, normal bowel sounds. Absent: distended, tenderness, guarding, rebound, rigid Extremities exam: Present: normal inspection, full ROM, normal capillary refill. Absent: tenderness, pedal edema, joint swelling, calf tenderness Back exam: Present: normal inspection Neurological exam: Present: alert, oriented X3, CN II-XII intact Psychiatric exam: Present: normal affect, normal mood Skin exam: Present: warm, dry, intact, normal color. Absent: rash <Kalyn Han - Last Filed: 04/29/18 20:23> <Alfred Owusu - Last Filed: 04/29/18 20:44> - General Exam Comments Initial Comments: Is a 57-year-old male. (Kalyn Han) Course <Kalyn Han - Last Filed: 04/29/18 20:23> <Alfred Owusu - Last Filed: 04/29/18 20:44> Vital Signs 04/29/18 04/29/18 04/29/18 17:49 18:30 18:40 Temperature 98.8 F Pulse Rate 71 72 74 Respiratory 18 Rate Blood Pressure 100/57 O2 Sat by Pulse 93 L Oximetry 04/29/18 20:00 Temperature Pulse Rate 90 Respiratory 16 Rate Blood Pressure 160/90 O2 Sat by Pulse 94 L Oximetry - Reevaluation(s) Reevaluation #1: 04/29/18 20:43 PA supervision: I personally saw and examined the patient. I have reviewed daily and agree with the PA findings including all diagnostic interpretations and treatment plan is written unless otherwise stated. Dr. Regalado was also contacted (Alfred Owusu) Medical Decision Making - Lab Data Result diagrams: 04/29/18 18:55 04/29/18 18:55 - Radiology Data Radiology results: report reviewed <Charlotte Hanily - Last Filed: 04/29/18 20:23> - Lab Data Result diagrams: 04/29/18 18:55 04/29/18 18:55 <Alfred Owusu - Last Filed: 04/29/18 20:44> - Medical Decision Making 57-year-old male presents emergency department today with increased shortness of breath. He was leaving AMA on Sunday for diagnosis of pneumonia acute renal failure. At this time is kidney function is worsening, BUN of 60 current and 8.65. No dialysis since Sunday. Troponin is elevated likely secondary to acute kidney injury. Patient chest x-ray shows increased pneumonia. Started the Patient on Rocephin. He does report some improvement after DuoNeb treatment. I discussed the case with Dr. Soto who agrees to admission. 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 Patient's vital signs stable. Patient will be admitted at this time. (Kalyn Han) - Lab Data Lab Results 04/29/18 04/29/18 04/29/18 Range/Units 18:55 18:55 18:55 WBC 6.4 (3.8-10.6) k/uL RBC 4.23 L (4.30-5.90) m/uL Hgb 11.7 L (13.0-17.5) gm/dL Hct 37.7 L (39.0-53.0) % MCV 89.1 (80.0-100.0) fL MCH 27.6 (25.0-35.0) pg MCHC 31.0 (31.0-37.0) g/dL RDW 16.5 H (11.5-15.5) % Plt Count 94 L (150-450) k/uL Neutrophils % 66 % Lymphocytes % 22 % Monocytes % 5 % Eosinophils % 3 % Basophils % 0 % Neutrophils # 4.2 (1.3-7.7) k/uL Lymphocytes # 1.4 (1.0-4.8) k/uL Monocytes # 0.3 (0-1.0) k/uL Eosinophils # 0.2 (0-0.7) k/uL Basophils # 0.0 (0-0.2) k/uL Manual Slide Review Performed Large Platelets Present Hypochromasia Moderate Anisocytosis Slight PT (9.0-12.0) sec INR (<1.2) APTT (22.0-30.0) sec Sodium 138 (137-145) mmol/L Potassium 4.9 (3.5-5.1) mmol/L Chloride 104 (98-107) mmol/L Carbon Dioxide 27 (22-30) mmol/L Anion Gap 7 mmol/L BUN 60 H (9-20) mg/dL Creatinine 8.27 H* (0.66-1.25) mg/dL Est GFR (CKD-EPI)AfAm 8 (>60 ml/min/1.73 sqM) Est GFR (CKD-EPI)NonAf 7 (>60 ml/min/1.73 sqM) Glucose 124 H (74-99) mg/dL Calcium 8.1 L (8.4-10.2) mg/dL Magnesium 1.8 (1.6-2.3) mg/dL Total Bilirubin 0.5 (0.2-1.3) mg/dL AST 14 L (17-59) U/L ALT 35 (21-72) U/L Alkaline Phosphatase 59 (38-126) U/L Total Creatine Kinase 31 L (55-170) U/L CK-MB (CK-2) 1.4 (0.0-2.4) ng/mL CK-MB (CK-2) Rel Index 4.5 Troponin I 0.101 H* (0.000-0.034) ng/mL NT-Pro-B Natriuret Pep pg/mL Total Protein 5.0 L (6.3-8.2) g/dL Albumin 2.7 L (3.5-5.0) g/dL Urine Color Urine Appearance (Clear) Urine pH (5.0-8.0) Ur Specific [place] (1.001-1.035) Urine Protein (Negative) Urine Glucose (UA) (Negative) Urine Ketones (Negative) Urine Blood (Negative) Urine Nitrite (Negative) Urine Bilirubin (Negative) Urine Urobilinogen (<2.0) mg/dL Ur Leukocyte Esterase (Negative) 04/29/18 04/29/18 04/29/18 Range/Units 18:55 18:55 18:55 WBC (3.8-10.6) k/uL RBC (4.30-5.90) m/uL Hgb (13.0-17.5) gm/dL Hct (39.0-53.0) % MCV (80.0-100.0) fL MCH (25.0-35.0) pg MCHC (31.0-37.0) g/dL RDW (11.5-15.5) % Plt Count (150-450) k/uL Neutrophils % % Lymphocytes % % Monocytes % % Eosinophils % % Basophils % % Neutrophils # (1.3-7.7) k/uL Lymphocytes # (1.0-4.8) k/uL Monocytes # (0-1.0) k/uL Eosinophils # (0-0.7) k/uL Basophils # (0-0.2) k/uL Manual Slide Review Large Platelets Hypochromasia Anisocytosis PT 9.4 (9.0-12.0) sec INR 0.9 (<1.2) APTT 23.3 (22.0-30.0) sec Sodium (137-145) mmol/L Potassium (3.5-5.1) mmol/L Chloride (98-107) mmol/L Carbon Dioxide (22-30) mmol/L Anion Gap mmol/L BUN (9-20) mg/dL Creatinine (0.66-1.25) mg/dL Est GFR (CKD-EPI)AfAm (>60 ml/min/1.73 sqM) Est GFR (CKD-EPI)NonAf (>60 ml/min/1.73 sqM) Glucose (74-99) mg/dL Calcium (8.4-10.2) mg/dL Magnesium (1.6-2.3) mg/dL Total Bilirubin (0.2-1.3) mg/dL AST (17-59) U/L ALT (21-72) U/L Alkaline Phosphatase (38-126) U/L Total Creatine Kinase (55-170) U/L CK-MB (CK-2) (0.0-2.4) ng/mL CK-MB (CK-2) Rel Index Troponin I (0.000-0.034) ng/mL NT-Pro-B Natriuret Pep 715 pg/mL Total Protein (6.3-8.2) g/dL Albumin (3.5-5.0) g/dL Urine Color Yellow Urine Appearance Clear (Clear) Urine pH 5.0 (5.0-8.0) Ur Specific [place] 1.009 (1.001-1.035) Urine Protein Trace H (Negative) Urine Glucose (UA) Negative (Negative) Urine Ketones Negative (Negative) Urine Blood Negative (Negative) Urine Nitrite Negative (Negative) Urine Bilirubin Negative (Negative) Urine Urobilinogen <2.0 (<2.0) mg/dL Ur Leukocyte Esterase Negative (Negative) 04/29/18 20:04 EKG shows normal sinus rhythm with bundle branch block. Abnormal EKG noted. Ventricular rate of 81 bpm.. Was 184. QRS ration 132. QT QTc is 392/455 ms. ( Kalyn Han) - Radiology Data Increasing bilateral lower lobe pulmonary infiltrates compared to last exam consistent with pneumonia. No heart failure. (Kalyn Han) Disposition Is patient prescribed a controlled substance at d/c from ED?: No Time of Disposition: 20:25 <Kalyn Han - Last Filed: 04/29/18 20:23> <Alfred Owusu - Last Filed: 04/29/18 20:44> Clinical Impression: Pneumonia, Dyspnea, Elevated troponin, Renal failure, Diabetes Disposition: ADMITTED IP TO THIS HOSP Condition: Stable Referrals: Tess Regalado MD [Primary Care Provider] - 1-2 days
--- NOTE | 2018-04-29 19:42 | XR ---
EXAMINATION TYPE: XR chest 2V DATE OF EXAM: 04/29/2018 COMPARISON: 04/26/2018 HISTORY: Difficulty breathing. Short of breath. TECHNIQUE: Frontal and lateral views of the chest are obtained. FINDINGS: There is dual-lumen right central venous catheter with tip in the superior vena cava. Ther e is left axillary pacemaker with the lead tips in the right ventricle. There are patchy bilateral lo wer lobe pulmonary airspace infiltrates. There is no heart failure. There is slight blunting of costo phrenic angles. Bony thorax is intact. IMPRESSION: There are increasing bilateral lower lobe pulmonary infiltrates compared to last exam an d consistent with pneumonia. No definite heart failure.
[2018-04-29 19:47] LABS: Creatine Kinase MB 1.4 ng/mL (0.0-2.4)
[2018-04-29] MEDS ORDERED: cefTRIAXone IN SWFI 1,000 MG/10 ML SYRINGE IVP STA (19:47)
[2018-04-29 19:49] LABS: Large Platelets Present; Platelet Count 94 k/uL (150-450)
[2018-04-29 19:50] LABS: INR 0.9 (<1.2); Partial Thromboplastin Time 23.3 sec (22.0-30.0); Prothrombin Time 9.4 sec (9.0-12.0)
[2018-04-29 19:51] LABS: Troponin I 0.101 ng/mL (0.000-0.034)
[2018-04-29] MEDS ORDERED: ACETAMINOPHEN TAB 325 MG TAB PO PRN (20:25)
[2018-04-29] MEDS ORDERED: HYDROcodone/APAP 5-325MG 1 EACH TAB PO PRN ×2 (20:25→20:28)
[2018-04-29] MEDS ORDERED: MORPHINE SULFATE 4 MG/ML SYRINGE IV PRN (20:25)
[2018-04-29] MEDS ORDERED: NALOXONE 0.4 MG/ML 1 ML VIAL IV PRN (20:25)
[2018-04-29] MEDS ORDERED: LORazepam 2 MG/ML INJ IV PRN (20:25)
[2018-04-29] MEDS ORDERED: ZUBSOLV SUBLINGUAL PRN (20:28)
[2018-04-29] MEDS: SODIUM CHLORIDE 0.9% 1,000 ML IV SCH (20:44)
[2018-04-29 22:59] VITALS: BMI 33.7
[2018-04-29] MEDS: PREGABALIN 75 MG CAP PO SCH (23:05)
[2018-04-29] MEDS: QUEtiapine 200 MG TAB PO SCH (23:05)
[2018-04-29] MEDS: traZODone HCL 100 MG TAB PO SCH (23:05)
[2018-04-29] MEDS: PRAVASTATIN SODIUM 40 MG TAB PO SCH (23:05)
[2018-04-29] MEDS: FUROSEMIDE 20 MG TAB PO SCH (23:05)
[2018-04-30 06:06] LABS: Glucose,Whole Blood 99 mg/dL (75-99)
[2018-04-30 06:51] LABS: Anisocytosis Slight; HCT 34.5 % (39.0-53.0); HGB 10.5 gm/dL (13.0-17.5); Hypochromasia Marked; MCH 27.7 pg (25.0-35.0); MCHC 30.4 g/dL (31.0-37.0); Mean Platelet Volume 9.4; RBC 3.79 m/uL (4.30-5.90); RDW 16.2 % (11.5-15.5); WBC 6.8 k/uL (3.8-10.6)
[2018-04-30 06:53] LABS: Platelet Count 78 k/uL (150-450)
[2018-04-30] MEDS: ALBUTEROL NEBULIZED 2.5 MG/3 ML INHALATION PRN ×2 (08:22→12:02)
[2018-04-30] MEDS: FUROSEMIDE 20 MG TAB PO SCH ×2 (08:50→22:01)
[2018-04-30] MEDS: ESCITALOPRAM 20 MG TAB PO SCH (08:51)
[2018-04-30] MEDS: PREGABALIN 75 MG CAP PO SCH ×2 (08:51→22:05)
[2018-04-30] MEDS: ALLOPURINOL 100 MG TAB PO SCH (08:51)
[2018-04-30] MEDS: GABAPENTIN 300 MG CAP PO SCH (08:51)
[2018-04-30] MEDS: PANTOPRAZOLE 40 MG/10 ML VIAL IV SCH (08:55)
--- NOTE | 2018-04-30 11:29 | P.NPCON ---
History of Present Illness - Reason for Consult acute renal failure - History of Present Illness Reason for consultation: Acute kidney injury History of present illness: Patient is a 57-year-old male seen in consultation for acute kidney injury. Patient was recently admitted with shortness of breath and fluid overload. He was also noted to have persistent hyperkalemia was subsequently started on hemodialysis. Patient's been having transportation problems and his last hemodialysis was last Sunday. Patient has been complaining of a productive cough with yellow sputum for the last few days. He was seen in the emergency room on Sunday and was diagnosed with pneumonia. However he continued to have a cough and felt weak and presented to the hospital. He is currently resting in bed. Denies vomiting or diarrhea. Oral intake is fair. Creatinine is 7.92 today. Hemodynamically stable. Maintain on IV antibiotics. No fever or chills. He has history of diastolic CHF. Patient states he still makes urine but not a significant amount. Vital signs are stable. General: The patient appeared well nourished and normally developed. HEENT: Head exam is unremarkable. Neck is without jugular venous distension. LUNGS: Lungs are clear to auscultation and percussion. Breath sounds decreased. HEART: Rate and Rhythm are regular. First and second heart sounds normal. No murmurs, rubs or gallops. ABDOMEN: Abdominal exam reveals normal bowel sounds. Non-tender and non- distended. No evidence of peritonitis. EXTREMITITES: No clubbing, cyanosis, or edema. Past Medical History Past Medical History: Coronary Artery Disease (CAD), Chest Pain / Angina, Heart Failure, COPD, Diabetes Mellitus, Hyperlipidemia, Hypertension, Myocardial Infarction ([place]), Pneumonia, Renal Disease, Sleep Apnea/CPAP/BIPAP Additional Past Medical History / Comment(s): suspected obstructive sleep apnea , insulin-dependent diabetes mellitus, diabetic peripheral neuropathy, diabetic nephropathy, chronic renal failure with stage III chronic kidney disease with a baseline creatinine of 1.6-1.7, history of CHF and based on that echocardiogram that was done in 2018, the patient had a ejection fraction of 40-45%, history of severe ischemic cardiac myopathy and the patient has a AICD in place, coronary artery disease, previous history of acute respiratory failure requiring intubation mechanical ventilation, bipolar disorder, right ankle sprain wearing a immobilizing boot on outpatient basis Last Myocardial Infarction Date:: 2004 History of Any Multi-Drug Resistant Organisms: None Reported Past Surgical History: AICD, Heart Catheterization With Stent, Pacemaker Past Anesthesia/Blood Transfusion Reactions: No Reported Reaction Date of Last Stent Placement:: 2004 Type of Cardiac Device: Permanent Pacemaker, AICD Device Placement Date:: 09/2004 Past Psychological History: Bipolar Smoking Status: Current every day smoker Past Alcohol Use History: None Reported Additional Past Alcohol Use History / Comment(s): STARTED SMOKING AT AGE 19 SMOKED 1PPD THEN DECREASED TO 1 PACK EVERY 3 DAYS. Past Drug Use History: None Reported - Past Family History Father Family Medical History: Cancer Additional Family Medical History / Comment(s): Paternal grandfather with CAD Mother Family Medical History: Cancer Additional Family Medical History / Comment(s): Maternal grandmother had CAD. Mother had cancer. Medications and Allergies Home Medications Medication Instructions Recorded Confirmed Type amLODIPine [Norvasc] 10 mg PO DAILY 01/05/16 04/29/18 History traZODone HCL [Desyrel] 200 mg PO HS 01/05/16 04/29/18 History Allopurinol [Zyloprim] 100 mg PO DAILY 05/21/17 04/29/18 History QUEtiapine [SEROquel] 200 mg PO HS 05/21/17 04/29/18 History Albuterol Inhaler [Ventolin Hfa 2 puff INHALATION RT-QID PRN 11/25/17 04/29/18 History Inhaler] Fluticasone/Vilanterol [Breo 1 puff INHALATION RT-DAILY 11/25/17 04/29/18 History Ellipta 100-25 Mcg Inhaler] Pregabalin [Lyrica] 75 mg PO BID 11/25/17 04/29/18 History Pravastatin Sodium [Pravachol] 40 mg PO HS 01/14/18 04/29/18 History Buprenorphine HCl/Naloxone HCl 1 tab SUBLINGUAL BID PRN 04/09/18 04/29/18 History [Zubsolv 5.7-1.4 mg Tablet Sl] Escitalopram [Lexapro] 20 mg PO DAILY 04/09/18 04/29/18 History Gabapentin [Neurontin] 300 mg PO DAILY 04/09/18 04/29/18 History HYDROcodone/APAP 5-325MG [[place] 1 tab PO TID PRN 04/09/18 04/29/18 History 5-325] Furosemide [Lasix] 60 mg PO BID #90 tab 04/22/18 04/29/18 Rx Allergies Allergy/AdvReac Type Severity Reaction Status Date / Time Penicillins Allergy Unknown Verified 04/29/18 18:03 Physical Exam Vitals: Vital Signs Temp Pulse Pulse Resp BP BP BP 04/30/18 08:36 92 04/30/18 08:22 92 04/30/18 08:00 96.8 F L 94 18 94/52 04/30/18 04:00 89 15 100/58 04/30/18 03:25 16 04/30/18 00:00 92 18 04/29/18 21:48 97 F L 92 18 123/85 04/29/18 21:46 87 16 04/29/18 20:44 85 17 153/85 04/29/18 20:00 90 16 160/90 04/29/18 18:40 74 04/29/18 18:30 72 04/29/18 17:49 98.8 F 71 18 100/57 Pulse Ox 04/30/18 08:36 04/30/18 08:22 04/30/18 08:00 90 L 04/30/18 04:00 93 L 04/30/18 03:25 04/30/18 00:00 04/29/18 21:48 98 04/29/18 21:46 04/29/18 20:44 93 L 04/29/18 20:00 94 L 04/29/18 18:40 04/29/18 18:30 04/29/18 17:49 93 L Intake and Output 04/29/18 04/30/18 04/30/18 22:59 06:59 14:59 Other: Voiding Method Urinal # Voids 0 Weight 119.4 kg 119.4 kg Results - Lab Results Most recent lab results Calcium 8.0 mg/dL (8.4-10.2) L 04/30/18 06:32 Magnesium 1.8 mg/dL (1.6-2.3) 04/29/18 18:55 04/30/18 06:32 04/30/18 06:32 Assessment and Plan Plan: Assessment: 1. Acute kidney injury currently hemodialysis dependent maintained on a Sunday schedule via right chest permacath. Etiology is cardiorenal syndrome. 2. Diastolic CHF. 3. Productive cough and dyspnea secondary to pneumonia maintained on antibiotics. 4. Hypertension with chronic kidney disease. Blood pressures on the lower side this morning. 5. Anemia of chronic kidney disease. Hemoglobin at goal. Plan: Hemodialysis today and again tomorrow. Hold antihypertensives for systolic blood pressure less than 120. Follow-up cultures. Continue Lasix 60 mg orally twice daily. No evidence of renal recovery at this time. Will continue to monitor. Thank you for the consultation. I will continue to follow the patient with you during his hospital stay.
[2018-04-30 12:17] LABS: Glucose,Whole Blood 119 mg/dL (75-99)
[2018-04-30] MEDS: INSULIN ASPART 100 UNIT/ML 1 ML 10 ML VIAL SQ SCH ×3 (12:40→22:12)
[2018-04-30] MEDS: amLODIPine 10 MG TAB PO SCH (12:40)
[2018-04-30] MEDS ORDERED: AZITHROMYCIN 500 MG in DEXTROSE 5% IN WATER 250 ML IVPB SCH ×2 (13:00)
[2018-04-30] MEDS ORDERED: AZITHROMYCIN 500 MG in SODIUM CHLORIDE 0.9% 250 ML IVPB SCH (13:00)
--- NOTE | 2018-04-30 13:18 | P.HPIM ---
History of Present Illness H&P Date: 04/30/18 Chief Complaint: shortness of breath, renal failure This is a 57-year-old male patient of Dr. Regalado who presented to the emergency room with increased shortness of breath. Patient presented to the emergency room on Sunday the left AMA. Patient states he has not received dialysis since last Sunday. She has known past medical history of coronary artery disease, chest pain, heart failure, COPD, diabetes mellitus, hyperlipidemia, hypertension , myocardial infarction, pneumonia, renal disease with sleep apnea and AICD. Chest x-ray completed emergency room showing increasing bilateral lower lobe pulmonary infiltrates compared to last exam and consistent with pneumonia. No definitive heart failure. EKG completed emergency room showing normal sinus rhythm and left bundle branch block. Creatinine on admission 7.92 and bun 59. Troponin level 0.101, 0.097 and 0.099. Patient denies chest pain at this time. Patient placed on Rocephin for antibiotic. Dr. Flores per nephrology has been consulted. Patient denies nausea vomiting or diarrhea. Review of Systems Please refer to HPI otherwise unremarkable Past Medical History Past Medical History: Coronary Artery Disease (CAD), Chest Pain / Angina, Heart Failure, COPD, Diabetes Mellitus, Hyperlipidemia, Hypertension, Myocardial Infarction (MD), Pneumonia, Renal Disease, Sleep Apnea/CPAP/BIPAP Additional Past Medical History / Comment(s): suspected obstructive sleep apnea , insulin-dependent diabetes mellitus, diabetic peripheral neuropathy, diabetic nephropathy, chronic renal failure with stage III chronic kidney disease with a baseline creatinine of 1.6-1.7, history of CHF and based on that echocardiogram that was done in 2018, the patient had a ejection fraction of 40-45%, history of severe ischemic cardiac myopathy and the patient has a AICD in place, coronary artery disease, previous history of acute respiratory failure requiring intubation mechanical ventilation, bipolar disorder, right ankle sprain wearing a immobilizing boot on outpatient basis Last Myocardial Infarction Date:: 2004 History of Any Multi-Drug Resistant Organisms: None Reported Past Surgical History: AICD, Heart Catheterization With Stent, Pacemaker Past Anesthesia/Blood Transfusion Reactions: No Reported Reaction Date of Last Stent Placement:: 2004 Type of Cardiac Device: Permanent Pacemaker, AICD Device Placement Date:: 09/2004 Past Psychological History: Bipolar Smoking Status: Current every day smoker Past Alcohol Use History: None Reported Additional Past Alcohol Use History / Comment(s): STARTED SMOKING AT AGE 19 SMOKED 1PPD THEN DECREASED TO 1 PACK EVERY 3 DAYS. Past Drug Use History: None Reported - Past Family History Father Family Medical History: Cancer Additional Family Medical History / Comment(s): Paternal grandfather with CAD Mother Family Medical History: Cancer Additional Family Medical History / Comment(s): Maternal grandmother had CAD. Mother had cancer. Medications and Allergies Home Medications Medication Instructions Recorded Confirmed Type amLODIPine [Norvasc] 10 mg PO DAILY 01/05/16 04/29/18 History traZODone HCL [Desyrel] 200 mg PO HS 01/05/16 04/29/18 History Allopurinol [Zyloprim] 100 mg PO DAILY 05/21/17 04/29/18 History QUEtiapine [SEROquel] 200 mg PO HS 05/21/17 04/29/18 History Albuterol Inhaler [Ventolin Hfa 2 puff INHALATION RT-QID PRN 11/25/17 04/29/18 History Inhaler] Fluticasone/Vilanterol [Breo 1 puff INHALATION RT-DAILY 11/25/17 04/29/18 History Ellipta 100-25 Mcg Inhaler] Pregabalin [Lyrica] 75 mg PO BID 11/25/17 04/29/18 History Pravastatin Sodium [Pravachol] 40 mg PO HS 01/14/18 04/29/18 History Buprenorphine HCl/Naloxone HCl 1 tab SUBLINGUAL BID PRN 04/09/18 04/29/18 History [Zubsolv 5.7-1.4 mg Tablet Sl] Escitalopram [Lexapro] 20 mg PO DAILY 04/09/18 04/29/18 History Gabapentin [Neurontin] 300 mg PO DAILY 04/09/18 04/29/18 History HYDROcodone/APAP 5-325MG [[place] 1 tab PO TID PRN 04/09/18 04/29/18 History 5-325] Furosemide [Lasix] 60 mg PO BID #90 tab 04/22/18 04/29/18 Rx Allergies Allergy/AdvReac Type Severity Reaction Status Date / Time Penicillins Allergy Unknown Verified 04/29/18 18:03 Physical Exam Vitals: Vital Signs Temp Pulse Pulse Resp BP BP BP 04/30/18 08:36 92 08/21/18 08:22 92 04/30/18 08:00 96.8 F L 94 18 94/52 04/30/18 04:00 89 15 100/58 04/30/18 03:25 16 04/30/18 00:00 92 18 04/29/18 21:48 97 F L 92 18 123/85 04/29/18 21:46 87 16 04/29/18 20:44 85 17 153/85 04/29/18 20:00 90 16 160/90 04/29/18 18:40 74 04/29/18 18:30 72 04/29/18 17:49 98.8 F 71 18 100/57 Pulse Ox 04/30/18 08:36 04/30/18 08:22 04/30/18 08:00 90 L 04/30/18 04:00 93 L 04/30/18 03:25 04/30/18 00:00 04/29/18 21:48 98 04/29/18 21:46 04/29/18 20:44 93 L 04/29/18 20:00 94 L 04/29/18 18:40 04/29/18 18:30 04/29/18 17:49 93 L Intake and Output 04/29/18 04/30/18 04/30/18 22:59 06:59 14:59 Other: Voiding Method Urinal # Voids 0 Weight 119.4 kg 119.4 kg Head normocephalic Neck supple Lungs crackles to lower bases bilaterally Heart regular rate and rhythm S1-S2, no rub or gallop Abdomen is soft nontender nondistended positive bowel sounds no hepatosplenomegaly Extremities no edema Neuro alert and orientated to 3 Results CBC & Chem 7: 04/30/18 06:32 04/30/18 06:32 Labs: Abnormal Lab Results - Last 24 Hours (Table) 04/29/18 04/29/18 04/29/18 Range/Units 18:55 18:55 18:55 RBC 4.23 L (4.30-5.90) m/uL Hgb 11.7 L (13.0-17.5) gm/dL Hct 37.7 L (39.0-53.0) % MCHC (31.0-37.0) g/dL RDW 16.5 H (11.5-15.5) % Plt Count 94 L (150-450) k/uL Chloride (98-107) mmol/L BUN 60 H (9-20) mg/dL Creatinine 8.27 H* (0.66-1.25) mg/dL Glucose 124 H (74-99) mg/dL Calcium 8.1 L (8.4-10.2) mg/dL AST 14 L (17-59) U/L Total Creatine Kinase 31 L (55-170) U/L Troponin I 0.101 H* (0.000-0.034) ng/mL Total Protein 5.0 L (6.3-8.2) g/dL Albumin 2.7 L (3.5-5.0) g/dL Urine Protein (Negative) 04/29/18 04/30/18 04/30/18 Range/Units 18:55 01:01 06:32 RBC (4.30-5.90) m/uL Hgb (13.0-17.5) gm/dL Hct (39.0-53.0) % MCHC (31.0-37.0) g/dL RDW (11.5-15.5) % Plt Count (150-450) k/uL Chloride (98-107) mmol/L BUN (9-20) mg/dL Creatinine (0.66-1.25) mg/dL Glucose (74-99) mg/dL Calcium (8.4-10.2) mg/dL AST (17-59) U/L Total Creatine Kinase (55-170) U/L Troponin I 0.097 H* 0.099 H* (0.000-0.034) ng/mL Total Protein (6.3-8.2) g/dL Albumin (3.5-5.0) g/dL Urine Protein Trace H (Negative) 04/30/18 04/30/18 Range/Units 06:32 06:32 RBC 3.79 L (4.30-5.90) m/uL Hgb 10.5 L (13.0-17.5) gm/dL Hct 34.5 L (39.0-53.0) % MCHC 30.4 L (31.0-37.0) g/dL RDW 16.2 H (11.5-15.5) % Plt Count 78 L (150-450) k/uL Chloride 110 H (98-107) mmol/L BUN 59 H (9-20) mg/dL Creatinine 7.92 H* (0.66-1.25) mg/dL Glucose 105 H (74-99) mg/dL Calcium 8.0 L (8.4-10.2) mg/dL AST (17-59) U/L Total Creatine Kinase (55-170) U/L Troponin I (0.000-0.034) ng/mL Total Protein (6.3-8.2) g/dL Albumin (3.5-5.0) g/dL Urine Protein (Negative) Thrombosis Risk Factor Assmnt - Choose All That Apply Each Factor Represents 1 point: Abnormal pulmonary function (COPD), Age 41-60 years, Obesity (BMI >25) Other Risk Factors: No Other congenital or acquired thrombophilia - If yes, enter type in comment: No Thrombosis Risk Factor Assessment Total Risk Factor Score: 3 Thrombosis Risk Factor Assessment Level: Moderate Risk Assessment and Plan Assessment: 1. Pneumonia. Chest x-ray completed showing increasing bilateral lower lobe pulmonary infiltrates compared to last exam and consistent with pneumonia. patient received Rocephin in emergency room. Blood and sputum cultures have been ordered. She started on Rocephin and azithromycin. Dr. Winter consulted for pulmonary services 2. Elevated troponin. Troponin level 0.101, 0.097 and 0.099. Cardiology services have been consulted. 3. Acute on chronic renal failure stage III. Patient states he missed 2 days of dialysis during last dialysis today Sunday. Dr. Flores per nephrology has been consulted. Normal hemodialysis schedule Sunday. creatinine 7.92 and bun 59. Social work has been consulted to address issue dialysis arrangement ride for further dialysis outpatient. 4. History of Coronary artery disease 5. Essential hypertension. Home blood pressure medications have been reordered. per nursing staff blood pressure medication have been held due to episodes of low blood pressures. Blood pressure Parameters set for [facility] 6. Hyperlipidemia. Continue pravastatin 7. Diabetes mellitus type 2. Sliding scale insulin has been ordered 8. Chronic hypoxic respiratory failure. Patient does wear home O2 9. Chronic sleep apnea 10. Severe ischemic cardiomyopathy. Patient does have AICD recent EF 50-55% with acute on chronic systolic dysfunction. Cardiology has been consulted 11. Bipolar. Home medications resumed 12.Thrombocytopenia. Platelet level 78. Continue to monitor closely DVT prophylaxis SCDs. GI prophylaxis Protonix Time with Patient: Greater than 30 (Greater than 60% of the total time spent in counseling and coordination of care. I performed an examination of the patient and discussed their management with the Nurse Practitioner. I have reviewed the Nurse Practitioner's notes and agree with the documented findings and plan of care)
--- NOTE | 2018-04-30 15:15 | XR ---
EXAMINATION TYPE: XR chest 1V portable DATE OF EXAM: 04/30/2018 COMPARISON: Prior chest 04/29/2018 HISTORY: Pneumonia TECHNIQUE: Single frontal view of the chest is obtained. FINDINGS: Patient is rotated. There is a right jugular central venous catheter which is stable, dist al tip in the right atrium. Defibrillator leads are stable, generator is in the left pectoral region. No evident pneumothorax. Heart remains enlarged. Difficult to exclude retrocardiac density, lung vol umes are low. There may be basilar atelectasis. IMPRESSION: Expiratory rotated exam. Findings compatible with left lower lobe pneumonia.
[2018-04-30 16:51] LABS: Glucose,Whole Blood 118 mg/dL (75-99)
--- NOTE | 2018-04-30 17:06 | P.CNPUL ---
History of Present Illness Consult date: 04/30/18 Requesting physician: Tess Regalado Reason for consult: dyspnea Chief complaint: Shortness of breath, weakness, fatigue History of present illness: This is a 57-year-old gentleman who has had multiple recent admissions for fluid volume overload. He has a history of chronic obstructive pulmonary disease, obstructive sleep apnea, chronic hypoxic and hypercapnic respiratory failure, insulin-dependent diabetes mellitus, diabetic peripheral neuropathy, hepatic nephropathy, chronic renal failure with stage III chronic kidney disease with a baseline creatinine of 1.6 1.7, systolic congestive heart failure with previous ejection fraction 40-45% and subsequent ejection fraction 50-55%. He also has a history of severe ischemic cardiomyopathy and is status post AICD placement, coronary artery disease with previous stent placement, hypertension, hyperlipidemia, depression, bipolar disorder, opioid dependence currently on Zubsolv. Previous acute respiratory failure requiring intubation mechanical ventilatory support. Has has chronic and ongoing tobacco dependence. The patient was recently discharged from here on 04/22/2018. The patient has been receiving hemodialysis but his last treatment was 6 days ago. He presented here to the emergency room last evening with complaints of increasing shortness of breath, fatigue and weakness. His chest x-ray showed increasing bilateral lower lobe infiltrates and suspected pneumonia with no overt evidence of heart failure. White count 6.4. Hemoglobin 11.7. Creatinine 8.27. ProBNP 715. Troponin 0.101, 0.097, 0.099. He is seen today in consultation on the selective care unit. He is awake and alert in no acute distress. He currently denies any worsening shortness of breath. He has a loose nonproductive cough. No chills or night sweats. Currently afebrile. Maintaining O2 saturations in the 90s on 3 L/m per nasal cannula. He is hemodynamically stable. He has been initiated on bronchodilators, Symbicort, Rocephin and azithromycin. Review of Systems Constitutional: Reports fatigue, Reports weakness Eyes: denies blurred vision, denies bulging eye, denies decreased vision Ears: deny: decreased hearing, ear discharge, earache, tinnitus Ears, nose, mouth and throat: Denies headache, Denies sore throat Cardiovascular: Reports dyspnea on exertion, Reports shortness of breath Respiratory: Reports cough, Reports cough with sputum, Reports dyspnea, Reports wheezing Gastrointestinal: Denies abdominal pain, Denies diarrhea, Denies nausea, Denies vomiting Genitourinary: Reports as per HPI Musculoskeletal: Denies myalgias Musculoskeletal: absent: ankle pain, ankle stiffness, ankle swelling Integumentary: Denies pruritus, Denies rash Neurological: Denies numbness, Denies weakness Psychiatric: Denies anxiety, Denies depression Endocrine: Denies fatigue, Denies weight change Hematologic/Lymphatic: Reports as per HPI Allergic/Immunologic: Reports as per HPI Past Medical History Past Medical History: Coronary Artery Disease (CAD), Chest Pain / Angina, Heart Failure, COPD, Diabetes Mellitus, Hyperlipidemia, Hypertension, Myocardial Infarction ([place]), Pneumonia, Renal Disease, Sleep Apnea/CPAP/BIPAP Additional Past Medical History / Comment(s): suspected obstructive sleep apnea , insulin-dependent diabetes mellitus, diabetic peripheral neuropathy, diabetic nephropathy, chronic renal failure with stage III chronic kidney disease with a baseline creatinine of 1.6-1.7, history of CHF and based on that echocardiogram that was done in 2018, the patient had a ejection fraction of 40-45%, history of severe ischemic cardiac myopathy and the patient has a AICD in place, coronary artery disease, previous history of acute respiratory failure requiring intubation mechanical ventilation, bipolar disorder, right ankle sprain wearing a immobilizing boot on outpatient basis Last Myocardial Infarction Date:: 2004 History of Any Multi-Drug Resistant Organisms: None Reported Past Surgical History: AICD, Heart Catheterization With Stent, Pacemaker Past Anesthesia/Blood Transfusion Reactions: No Reported Reaction Date of Last Stent Placement:: 2004 Type of Cardiac Device: Permanent Pacemaker, AICD Device Placement Date:: 09/2004 Past Psychological History: Bipolar Smoking Status: Current every day smoker Past Alcohol Use History: None Reported Additional Past Alcohol Use History / Comment(s): STARTED SMOKING AT AGE 19 SMOKED 1PPD THEN DECREASED TO 1 PACK EVERY 3 DAYS. Past Drug Use History: None Reported - Past Family History Father Family Medical History: Cancer Additional Family Medical History / Comment(s): Paternal grandfather with CAD Mother Family Medical History: Cancer Additional Family Medical History / Comment(s): Maternal grandmother had CAD. Mother had cancer. Medications and Allergies Home Medications Medication Instructions Recorded Confirmed Type amLODIPine [Norvasc] 10 mg PO DAILY 01/05/16 04/29/18 History traZODone HCL [Desyrel] 200 mg PO HS 01/05/16 04/29/18 History Allopurinol [Zyloprim] 100 mg PO DAILY 05/21/17 04/29/18 History QUEtiapine [SEROquel] 200 mg PO HS 05/21/17 04/29/18 History Albuterol Inhaler [Ventolin Hfa 2 puff INHALATION RT-QID PRN 11/25/17 04/29/18 History Inhaler] Fluticasone/Vilanterol [Breo 1 puff INHALATION RT-DAILY 11/25/17 04/29/18 History Ellipta 100-25 Mcg Inhaler] Pregabalin [Lyrica] 75 mg PO BID 11/25/17 04/29/18 History Pravastatin Sodium [Pravachol] 40 mg PO HS 01/14/18 04/29/18 History Buprenorphine HCl/Naloxone HCl 1 tab SUBLINGUAL BID PRN 04/09/18 04/29/18 History [Zubsolv 5.7-1.4 mg Tablet Sl] Escitalopram [Lexapro] 20 mg PO DAILY 04/09/18 04/29/18 History Gabapentin [Neurontin] 300 mg PO DAILY 04/09/18 04/29/18 History HYDROcodone/APAP 5-325MG [[place] 1 tab PO TID PRN 04/09/18 04/29/18 History 5-325] Furosemide [Lasix] 60 mg PO BID #90 tab 04/22/18 04/29/18 Rx Allergies Allergy/AdvReac Type Severity Reaction Status Date / Time Penicillins Allergy Unknown Verified 04/29/18 18:03 Physical Exam Vitals: Vital Signs Temp Pulse Pulse Resp BP BP BP 04/30/18 12:16 84 04/30/18 12:02 84 04/30/18 12:00 97.7 F 86 18 113/73 04/30/18 08:36 92 04/30/18 08:22 92 04/30/18 08:00 96.8 F L 94 18 94/52 04/30/18 04:00 89 15 100/58 04/30/18 03:25 16 04/30/18 00:00 92 18 04/29/18 21:48 97 F L 92 18 123/85 04/29/18 21:46 87 16 04/29/18 20:44 85 17 153/85 04/29/18 20:00 90 16 160/90 04/29/18 18:40 74 04/29/18 18:30 72 04/29/18 17:49 98.8 F 71 18 100/57 Pulse Ox 04/30/18 12:16 04/30/18 12:02 04/30/18 12:00 94 L 04/30/18 08:36 04/30/18 08:22 04/30/18 08:00 90 L 04/30/18 04:00 93 L 04/30/18 03:25 04/30/18 00:00 04/29/18 21:48 98 04/29/18 21:46 04/29/18 20:44 93 L 04/29/18 20:00 94 L 04/29/18 18:40 04/29/18 18:30 04/29/18 17:49 93 L Intake and Output 04/30/18 04/30/18 04/30/18 06:59 14:59 22:59 Intake Total 180 Balance 180 Intake: Oral 180 Other: Voiding Method Urinal # Voids 0 Weight 119.4 kg 119.4 kg Gen. appearance, comfortable awake nonacute distress. Head exam was generally normal. There was no scleral icterus or corneal arcus. Mucous membranes were moist. Neck was supple and without jugular venous distension, thyromegaly, or carotid bruits. Carotids were easily palpable bilaterally. There was no adenopathy. Lungs sounds are diminished bilaterally along with scattered rhonchi and scattered expiratory wheezes without the lung [place] bilaterally. Cardiac exam revealed the PMI to be normally situated and sized. The rhythm was regular and no extrasystoles were noted during several minutes of auscultation. The first and second heart sounds were normal and physiologic splitting of the second heart sound was noted. There were no murmurs, rubs, clicks, or gallops. Abdominal exam revealed normal bowel sounds. The abdomen was soft, non-tender, and without masses, organomegaly, or appreciable enlargement of the abdominal aorta. Examination of the extremities revealed easily palpable radial, femoral and pedal pulses. There was no cyanosis, clubbing or edema. Examination of the skin revealed no evidence of significant rashes, suspicious appearing nevi or other concerning lesions. Neurologically the patient is awake and alert and there is no focal neurological deficit. Results - Laboratory Findings CBC and BMP: 04/30/18 06:32 04/30/18 06:32 PT/INR, D-dimer PT 9.4 sec (9.0-12.0) 04/29/18 18:55 INR 0.9 (<1.2) 04/29/18 18:55 Abnormal lab findings: Abnormal Labs 04/29/18 04/29/18 04/29/18 18:55 18:55 18:55 RBC 4.23 L Hgb 11.7 L Hct 37.7 L MCHC RDW 16.5 H Plt Count 94 L Chloride BUN 60 H Creatinine 8.27 H* Glucose 124 H POC Glucose (mg/dL) Calcium 8.1 L AST 14 L Total Creatine Kinase 31 L Troponin I 0.101 H* Total Protein 5.0 L Albumin 2.7 L Urine Protein 04/29/18 04/30/18 04/30/18 18:55 01:01 06:32 RBC Hgb Hct MCHC RDW Plt Count Chloride BUN Creatinine Glucose POC Glucose (mg/dL) Calcium AST Total Creatine Kinase Troponin I 0.097 H* 0.099 H* Total Protein Albumin Urine Protein Trace H 04/30/18 04/30/18 04/30/18 06:32 06:32 11:44 RBC 3.79 L Hgb 10.5 L Hct 34.5 L MCHC 30.4 L RDW 16.2 H Plt Count 78 L Chloride 110 H BUN 59 H Creatinine 7.92 H* Glucose 105 H POC Glucose (mg/dL) 119 H Calcium 8.0 L AST Total Creatine Kinase Troponin I Total Protein Albumin Urine Protein - Diagnostic Findings Chest x-ray: image reviewed Assessment and Plan Assessment: Impression: #1 Acute on chronic hypoxic respiratory failure secondary to acute bilateral lower lobe pneumonia, suspect hospital-acquired as well as an acute exacerbation of chronic obstructive pulmonary disease and fluid volume overload secondary to missed dialysis. #2 Acute on chronic hypercapnic respiratory failure secondary to acute exacerbation of chronic obstructive pulmonary disease secondary to pneumonia. #3 Acute on chronic systolic congestive heart failure with previous ejection fraction 40-45% and most recently 50-55%. #4 Severe ischemic cardiomyopathy status post AICD placement. #5 Acute on chronic renal failure, stage III with previous cardiorenal syndrome and acute tubular necrosis. Patient is now on hemodialysis Sunday however had not received dialysis less since last Sunday, 6 days ago. #6 Diabetes mellitus, type II. #7 Coronary artery disease with previous stent placement. #8 Hyperlipidemia. #9 Hypertension. #10 Obstructive sleep apnea. #11 Chronic tobacco dependence. #12 Bipolar disorder. #13 Opioid dependence, currently on the Zubsolv #14 Poor overall functional performance based on the above-mentioned multiple comorbidities. Plan: The patient was seen and evaluated by Dr. Haile. Chest x-ray and labs were reviewed. We will go ahead and continue the patient's current medications for now. He is again educated regarding the importance of dialysis compliance, medication compliance, smoking cessation. He has been seen by nephrology and the plan is for hemodialysis today and again tomorrow. We'll continue to follow and make further recommendations based on his clinical status. I, the cosigning physician, performed a history & physical examination of the patient. Lungs sounds with crackles in the bilateral posterior bases. Maintaining good O2 saturations in the 90s on 3 L/m per nasal cannula. I discussed the assessment and plan of care with my nurse practitioner, Sil Land. I attest to the above consultation as dictated by her. Time with Patient: Greater than 30
[2018-04-30 21:10] LABS: Glucose,Whole Blood 158 mg/dL (75-99)
[2018-04-30] MEDS: SYMBICORT 80-4.5 MCG INHALER INHALATION SCH (21:51)
[2018-04-30] MEDS: SODIUM CHLORIDE 0.9% 1,000 ML IV SCH (22:01)
[2018-04-30] MEDS: QUEtiapine 200 MG TAB PO SCH (22:02)
[2018-04-30] MEDS: traZODone HCL 100 MG TAB PO SCH (22:02)
[2018-04-30] MEDS: PRAVASTATIN SODIUM 40 MG TAB PO SCH (22:02)
[2018-05-01] MEDS: cefTRIAXone IN SWFI 1,000 MG/10 ML SYRINGE IVP SCH ×2 (02:08→16:33)
[2018-05-01] MEDS: SYMBICORT 80-4.5 MCG INHALER INHALATION SCH ×2 (02:11→20:40)
[2018-05-01 06:06] LABS: Glucose,Whole Blood 82 mg/dL (75-99)
[2018-05-01] MEDS: INSULIN ASPART 100 UNIT/ML 1 ML 10 ML VIAL SQ SCH ×4 (06:27→21:48)
[2018-05-01 06:56] LABS: Anisocytosis Slight; Basophils % (A) 0 %; Eosinophils # (A) 0.2 k/uL (0-0.7); Eosinophils % (A) 3 %; HCT 37.9 % (39.0-53.0); HGB 11.6 gm/dL (13.0-17.5); Hypochromasia Moderate; Lymphocytes # (A) 1.2 k/uL (1.0-4.8); Lymphocytes % (A) 20 %; MCH 27.4 pg (25.0-35.0); MCHC 30.5 g/dL (31.0-37.0); MCV 89.6 fL (80.0-100.0); Mean Platelet Volume 9.4; Monocytes # (A) 0.4 k/uL (0-1.0); Monocytes % (A) 7 %; Neutrophils % (A) 68 %; RBC 4.22 m/uL (4.30-5.90); RDW 16.3 % (11.5-15.5); WBC 5.9 k/uL (3.8-10.6)
[2018-05-01 07:08] LABS: Platelet Count 71 k/uL (150-450)
[2018-05-01 07:12] LABS: Albumin 2.6 g/dL (3.5-5.0); Calcium 8.1 mg/dL (8.4-10.2); Potassium 4.7 mmol/L (3.5-5.1); Total Bilirubin 0.4 mg/dL (0.2-1.3); Total Protein 4.9 g/dL (6.3-8.2)
[2018-05-01] MEDS: ALBUTEROL NEBULIZED 2.5 MG/3 ML INHALATION PRN ×3 (08:22→20:40)
[2018-05-01] MEDS: ALLOPURINOL 100 MG TAB PO SCH (10:04)
[2018-05-01] MEDS: amLODIPine 10 MG TAB PO SCH (10:04)
[2018-05-01] MEDS: ESCITALOPRAM 20 MG TAB PO SCH (10:05)
[2018-05-01] MEDS: FUROSEMIDE 20 MG TAB PO SCH ×2 (10:05→21:37)
[2018-05-01] MEDS: PANTOPRAZOLE 40 MG/10 ML VIAL IV SCH (10:07)
[2018-05-01] MEDS: GABAPENTIN 300 MG CAP PO SCH (10:09)
[2018-05-01] MEDS: PREGABALIN 75 MG CAP PO SCH ×2 (10:21→21:48)
--- NOTE | 2018-05-01 10:57 | P.PN ---
Subjective Progress Note Date: 05/01/18 This is a 57-year-old male patient of Dr. Regalado who presented to the emergency room with increased shortness of breath. Patient presented to the emergency room on Sunday the left AMA. Patient states he has not received dialysis since last Sunday. She has known past medical history of coronary artery disease, chest pain, heart failure, COPD, diabetes mellitus, hyperlipidemia, hypertension , myocardial infarction, pneumonia, renal disease with sleep apnea and AICD. Chest x-ray completed emergency room showing increasing bilateral lower lobe pulmonary infiltrates compared to last exam and consistent with pneumonia. No definitive heart failure. EKG completed emergency room showing normal sinus rhythm and left bundle branch block. Creatinine on admission 7.92 and bun 59. Troponin level 0.101, 0.097 and 0.099. Patient denies chest pain at this time. Patient placed on Rocephin for antibiotic. Dr. Flores per nephrology has been consulted. Patient denies nausea vomiting or diarrhea. On 05/01/2018 patient is currently resting comfortably in bed. Patient does state he feels improved from yesterday. Patient did receive dialysis yesterday and is planning to receive dialysis again today per nephrology. Creatinine 5.79 and bun 37. Patient remains on Zithromax and Rocephin for antibiotic coverage for pneumonia. Patient also receiving 60 mg by mouth Lasix twice a day. Patient denies chest pain or shortness of breath. Denies nausea vomiting or diarrhea. Denies any urinary burning or frequency. Objective - Vital Signs Vital signs: Vital Signs Temp 97 F L 05/01/18 04:00 Pulse 100 05/01/18 08:35 Resp 16 05/01/18 04:00 BP 135/81 05/01/18 04:00 Pulse Ox 95 05/01/18 04:00 Intake & Output 04/30/18 05/01/18 05/01/18 18:59 06:59 18:59 Intake Total 180 400 Output Total 1000 Balance 180 -600 Weight 119.4 kg 117.7 kg Intake: Oral 180 400 Output: Urine 1000 Other: Voiding Method Urinal Urinal # Voids 1 - Exam Head normocephalic Neck supple Lungs clear to auscultation bilaterally no wheezing or crackles Heart regular rate and rhythm S1-S2, no rub or gallop Abdomen is soft nontender nondistended positive bowel sounds no hepatosplenomegaly Extremities no edema Neuro alert and orientated to 3 - Labs CBC & Chem 7: 05/01/18 06:24 05/01/18 06:24 Labs: Abnormal Lab Results - Last 24 Hours (Table) 04/30/18 04/30/18 04/30/18 Range/Units 11:44 16:44 21:08 RBC (4.30-5.90) m/uL Hgb (13.0-17.5) gm/dL Hct (39.0-53.0) % MCHC (31.0-37.0) g/dL RDW (11.5-15.5) % Plt Count (150-450) k/uL Sodium (137-145) mmol/L Carbon Dioxide (22-30) mmol/L BUN (9-20) mg/dL Creatinine (0.66-1.25) mg/dL Glucose (74-99) mg/dL POC Glucose (mg/dL) 119 H 118 H 158 H (75-99) mg/dL Calcium (8.4-10.2) mg/dL AST (17-59) U/L Total Protein (6.3-8.2) g/dL Albumin (3.5-5.0) g/dL 04/30/18 05/01/18 05/01/18 Range/Units 22:05 06:24 06:24 RBC 4.22 L (4.30-5.90) m/uL Hgb 11.6 L (13.0-17.5) gm/dL Hct 37.9 L (39.0-53.0) % MCHC 30.5 L (31.0-37.0) g/dL RDW 16.3 H (11.5-15.5) % Plt Count 71 L (150-450) k/uL Sodium 135 L (137-145) mmol/L Carbon Dioxide 21 L (22-30) mmol/L BUN 36 H 37 H (9-20) mg/dL Creatinine 5.30 H* 5.79 H* (0.66-1.25) mg/dL Glucose 155 H (74-99) mg/dL POC Glucose (mg/dL) (75-99) mg/dL Calcium 8.0 L 8.1 L (8.4-10.2) mg/dL AST 14 L (17-59) U/L Total Protein 4.9 L (6.3-8.2) g/dL Albumin 2.6 L (3.5-5.0) g/dL Microbiology - Last 24 Hours (Table) 04/29/18 18:55 Blood Culture - Preliminary Blood No Growth after 24 hours Assessment and Plan Assessment: 1. Acute on chronic hypoxic respiratory failure secondary to acute bilateral lower lobe pneumonia. Chest x-ray completed showing increasing bilateral lower lobe pulmonary infiltrates compared to last exam and consistent with pneumonia. patient received Rocephin in emergency room. Blood and sputum cultures have been ordered. patient started on Rocephin and azithromycin. Dr. Winter following for pulmonary services. Chest x-ray completed showing expiratory rotated exam. Findings compatible with left lower lobe pneumonia. 2. Elevated troponin. Troponin level 0.101, 0.097 and 0.099. Cardiology services have been consulted. 3. Acute on chronic renal failure stage III. Patient states he missed 2 days of dialysis during last dialysis today Sunday. Dr. Flores per nephrology has been consulted. Normal hemodialysis schedule Sundayday Sunday. creatinine 7.92 and bun 59. Social work has been consulted to address issue dialysis arrangement ride for further dialysis outpatient. Patient did receive dialysis yesterday and will receive dialysis again today. Creatinine 5.79 and bun 37. 4. History of Coronary artery disease 5. Essential hypertension. Home blood pressure medications have been reordered. per nursing staff blood pressure medication have been held due to episodes of low blood pressures. Blood pressure Parameters set for [facility][1] 6. Hyperlipidemia. Continue pravastatin 7. Diabetes mellitus type 2. Sliding scale insulin has been ordered 8. Chronic hypoxic respiratory failure. Patient does wear home O2 9. Chronic sleep apnea 10. Severe ischemic cardiomyopathy. Patient does have AICD recent EF 50-55% with acute on chronic systolic dysfunction. Cardiology has been consulted 11. Bipolar. Home medications resumed 12.Thrombocytopenia. Platelet level 71. Continue to monitor closely DVT prophylaxis SCDs. GI prophylaxis Protonix I performed an examination of the patient and discussed their management with the Nurse Practitioner. I have reviewed the Nurse Practitioner's notes and agree with the documented findings and plan of care
--- NOTE | 2018-05-01 11:32 | P.CRDCN ---
History of Present Illness Consult date: 05/01/18 Requesting physician: Tess Regalado Reason for Consult (text): Abnormal troponins Chief complaint: Shortness of breath History of present illness: This is a 57-year-old -[place] gentleman with past medical history significant for diabetes, hypertension, hyperlipidemia, ischemic cardio myopathy with prior AICD, chronic kidney disease on dialysis, bipolar disorder, COPD, obstructive sleep apnea, peripheral neuropathy, coronary artery disease with prior stent placement, depression, opioid dependence, nicotine dependence. He was recently discharged from here on the of this month, patient has been receiving hemodialysis, but missed several treatments, his last one was 7 days prior to admission. He presented to the emergency room with symptoms of worsening shortness of breath with associated fatigue and weakness. His chest x -ray revealed increasing bilateral lower lobe infiltrates and suspected pneumonia with no evidence of congestive heart failure. White blood cell count 6.4, hemoglobin 11.7, platelet count 71, and pH 7:15, troponin 0.1, 0.09, 0.09. BUN 36 and creatinine 5.3 on admission, 37 and 5.7 this morning. Patient was seen and examined this morning, currently undergoing a dialysis treatment. Very sleepy. Denies any significant shortness of breath, no chest discomfort. Cardiology consultation was requested because of abnormality in troponin. Upon review of prior admissions, patient is noted to have an abnormality in his troponins. Past Medical History Past Medical History: Coronary Artery Disease (CAD), Chest Pain / Angina, Heart Failure, COPD, Diabetes Mellitus, Hyperlipidemia, Hypertension, Myocardial Infarction (MD), Pneumonia, Renal Disease, Sleep Apnea/CPAP/BIPAP Additional Past Medical History / Comment(s): suspected obstructive sleep apnea , insulin-dependent diabetes mellitus, diabetic peripheral neuropathy, diabetic nephropathy, chronic renal failure with stage III chronic kidney disease with a baseline creatinine of 1.6-1.7, history of CHF and based on that echocardiogram that was done in 2018, the patient had a ejection fraction of 40-45%, history of severe ischemic cardiac myopathy and the patient has a AICD in place, coronary artery disease, previous history of acute respiratory failure requiring intubation mechanical ventilation, bipolar disorder, right ankle sprain wearing a immobilizing boot on outpatient basis Last Myocardial Infarction Date:: 2004 History of Any Multi-Drug Resistant Organisms: None Reported Past Surgical History: AICD, Heart Catheterization With Stent, Pacemaker Past Anesthesia/Blood Transfusion Reactions: No Reported Reaction Date of Last Stent Placement:: 2004 Type of Cardiac Device: Permanent Pacemaker, AICD Device Placement Date:: 09/2004 Past Psychological History: Bipolar Smoking Status: Current every day smoker Past Alcohol Use History: None Reported Additional Past Alcohol Use History / Comment(s): STARTED SMOKING AT AGE 19 SMOKED 1PPD THEN DECREASED TO 1 PACK EVERY 3 DAYS. Past Drug Use History: None Reported - Past Family History Father Family Medical History: Cancer Additional Family Medical History / Comment(s): Paternal grandfather with CAD Mother Family Medical History: Cancer Additional Family Medical History / Comment(s): Maternal grandmother had CAD. Mother had cancer. Medications and Allergies Home Medications Medication Instructions Recorded Confirmed Type amLODIPine [Norvasc] 10 mg PO DAILY 01/05/16 04/29/18 History traZODone HCL [Desyrel] 200 mg PO HS 01/05/16 04/29/18 History Allopurinol [Zyloprim] 100 mg PO DAILY 05/21/17 04/29/18 History QUEtiapine [SEROquel] 200 mg PO HS 05/21/17 04/29/18 History Albuterol Inhaler [Ventolin Hfa 2 puff INHALATION RT-QID PRN 11/25/17 04/29/18 History Inhaler] Fluticasone/Vilanterol [Breo 1 puff INHALATION RT-DAILY 11/25/17 04/29/18 History Ellipta 100-25 Mcg Inhaler] Pregabalin [Lyrica] 75 mg PO BID 11/25/17 04/29/18 History Pravastatin Sodium [Pravachol] 40 mg PO HS 01/14/18 04/29/18 History Buprenorphine HCl/Naloxone HCl 1 tab SUBLINGUAL BID PRN 04/09/18 04/29/18 History [Zubsolv 5.7-1.4 mg Tablet Sl] Escitalopram [Lexapro] 20 mg PO DAILY 04/09/18 04/29/18 History Gabapentin [Neurontin] 300 mg PO DAILY 04/09/18 04/29/18 History HYDROcodone/APAP 5-325MG [[place] 1 tab PO TID PRN 04/09/18 04/29/18 History 5-325] Furosemide [Lasix] 60 mg PO BID #90 tab 04/22/18 04/29/18 Rx Allergies Allergy/AdvReac Type Severity Reaction Status Date / Time Penicillins Allergy Unknown Verified 04/29/18 18:03 Physical Exam Vitals: Vital Signs Temp Pulse Pulse Resp BP BP Pulse Ox 05/01/18 08:35 100 05/01/18 08:22 100 05/01/18 08:00 94 18 144/78 93 L 05/01/18 04:00 97 F L 85 16 135/81 95 05/01/18 00:00 97.1 F L 90 16 126/74 92 L 04/30/18 20:00 96.9 F L 99 16 129/84 94 L 04/30/18 16:00 92 18 121/73 04/30/18 12:16 84 04/30/18 12:02 84 04/30/18 12:00 97.7 F 86 18 113/73 94 L Intake and Output 04/30/18 05/01/18 05/01/18 22:59 06:59 14:59 Intake Total 280 120 Output Total 1000 Balance -720 120 Intake: Oral 280 120 Output: Urine 1000 Other: Voiding Method Urinal Urinal # Voids 1 1 Weight 117.7 kg Gen. appearance, comfortable awake nonacute distress. Head exam was generally normal. There was no scleral icterus or corneal arcus. Mucous membranes were moist. Neck was supple and without jugular venous distension, thyromegaly, or carotid bruits. Carotids were easily palpable bilaterally. There was no adenopathy. Lungs sounds are diminished bilaterally along with scattered rhonchi and scattered expiratory wheezes without the lung [place] bilaterally. Cardiac exam revealed the PMI to be normally situated and sized. The rhythm was regular and no extrasystoles were noted during several minutes of auscultation. The first and second heart sounds were normal and physiologic splitting of the second heart sound was noted. There were no murmurs, rubs, clicks, or gallops. Abdominal exam revealed normal bowel sounds. The abdomen was soft, non-tender, and without masses, organomegaly, or appreciable enlargement of the abdominal aorta. Examination of the extremities revealed easily palpable radial, femoral and pedal pulses. There was no cyanosis, clubbing or edema. Examination of the skin revealed no evidence of significant rashes, suspicious appearing nevi or other concerning lesions. Neurologically the patient is awake and alert and there is no focal neurological deficit. Results 05/01/18 06:24 05/01/18 06:24 Cardiac Enzymes 05/01/18 Range/Units 06:24 AST 14 L (17-59) U/L CBC 05/01/18 Range/Units 06:24 WBC 5.9 (3.8-10.6) k/uL RBC 4.22 L (4.30-5.90) m/uL Hgb 11.6 L (13.0-17.5) gm/dL Hct 37.9 L (39.0-53.0) % Plt Count 71 L (150-450) k/uL Comprehensive Metabolic Panel 04/30/18 05/01/18 Range/Units 22:05 06:24 Sodium 135 L 137 (137-145) mmol/L Potassium 5.0 4.7 (3.5-5.1) mmol/L Chloride 107 106 (98-107) mmol/L Carbon Dioxide 21 L 27 (22-30) mmol/L BUN 36 H 37 H (9-20) mg/dL Creatinine 5.30 H* 5.79 H* (0.66-1.25) mg/dL Glucose 155 H 90 (74-99) mg/dL Calcium 8.0 L 8.1 L (8.4-10.2) mg/dL AST 14 L (17-59) U/L ALT 32 (21-72) U/L Alkaline Phosphatase 61 (38-126) U/L Total Protein 4.9 L (6.3-8.2) g/dL Albumin 2.6 L (3.5-5.0) g/dL Current Medications Generic Name Dose Route Start Last Admin Trade Name Freq PRN Reason Stop Dose Admin Acetaminophen 650 mg 04/29/18 20:25 Tylenol Tab PO Q6HR PRN Mild Pain or Fever > 100.5 Hydrocodone Bitart/Acetaminophen 1 each 04/29/18 20:25 04/29/18 23:06 [place] 5-325 PO 1 each Q4HR PRN Administration Moderate Pain Albuterol Sulfate 2.5 mg 04/29/18 20:28 05/01/18 08:22 Ventolin Nebulized INHALATION 2.5 mg RT-QID PRN Administration Shortness Of Breath Allopurinol 100 mg 04/30/18 09:00 08/22/18 10:04 Zyloprim PO 100 mg DAILY [facility] Administration Amlodipine Besylate 10 mg 04/30/18 09:00 05/01/18 10:04 Norvasc PO 10 mg DAILY [facility] Administration Budesonide/Formoterol Fumarate 2 puff 05/01/18 08:31 Symbicort 80-4.5 Mcg Inhaler INHALATION RT-BID [facility] Ceftriaxone Sodium 1,000 mg 04/30/18 16:00 05/01/18 02:08 Rocephin IVP Not Given Q24H [facility] Escitalopram Oxalate 20 mg 04/30/18 09:00 05/01/18 10:05 Lexapro PO 20 mg DAILY [facility] Administration Furosemide 60 mg 04/29/18 21:00 05/01/18 10:05 Lasix PO 60 mg BID [facility] Administration Gabapentin 300 mg 04/30/18 09:00 05/01/18 10:09 Neurontin PO 300 mg DAILY [facility] Administration Sodium Chloride 1,000 mls @ 20 mls/hr 04/29/18 20:30 04/30/18 22:01 Saline 0.9% IV Not Given .Q24H [facility] Azithromycin 500 mg/ Sodium 250 mls @ 125 mls/hr 04/30/18 13:00 05/01/18 10: 15 Chloride IVPB 125 mls/hr DAILY [facility] Administration Insulin Aspart 0 unit 04/30/18 12:30 05/01/18 06:27 Novolog SQ Not Given ACHS [facility] Protocol Lorazepam 0.5 mg 04/29/18 20:25 Ativan IV Q6HR PRN Anxiety Morphine Sulfate 4 mg 04/29/18 20:25 Morphine Sulfate (Inj) IV Q4HR PRN Severe Pain Naloxone HCl 0.2 mg 04/29/18 20:25 Narcan IV Q2M PRN Opioid Reversal Zubsolv 5.7-1.4 1 tab 04/29/18 20:28 SUBLINGUAL BID PRN WITHDRAWAL Pantoprazole Sodium 40 mg 04/30/18 09:00 05/01/18 10:07 Protonix IV 40 mg DAILY [facility] Administration Pravastatin Sodium 40 mg 04/29/18 21:00 04/30/18 22:02 Pravachol PO 40 mg HS [facility] Administration Pregabalin 75 mg 04/29/18 22:00 05/01/18 10:21 Lyrica PO 75 mg BID [facility] Administration Quetiapine Fumarate 200 mg 04/29/18 22:00 04/30/18 22:02 Seroquel PO 200 mg HS [facility] Administration Trazodone HCl 200 mg 04/29/18 22:00 04/30/18 22:02 Desyrel PO 200 mg HS [facility] Administration Intake and Output 04/30/18 05/01/18 05/01/18 22:59 06:59 14:59 Intake Total 280 120 Output Total 1000 Balance -720 120 Intake: Oral 280 120 Output: Urine 1000 Other: Voiding Method Urinal Urinal # Voids 1 1 Weight 117.7 kg 05/01/18 06:24 05/01/18 06:24 EKG Interpretations (text) EKG showed a normal sinus rhythm with a left bundle-branch block pattern and nonspecific ST-T wave changes. Assessment and Plan Plan: Impression and plan: #1 Acute on chronic hypoxic respiratory failure secondary to acute bilateral lower lobe pneumonia, suspect hospital-acquired as well as an acute exacerbation of chronic obstructive pulmonary disease and fluid volume overload secondary to missed dialysis. #2 Acute on chronic hypercapnic respiratory failure secondary to acute exacerbation of chronic obstructive pulmonary disease secondary to pneumonia. #3 Acute on chronic systolic congestive heart failure with previous ejection fraction 40-45% and most recently 50-55%. #4 Severe ischemic cardiomyopathy status post AICD placement. #5 Acute on chronic renal failure, stage III with previous cardiorenal syndrome and acute tubular necrosis. Patient is now on hemodialysis Sunday however had not received dialysis less since last Sunday, 6 days ago. #6 Diabetes mellitus, type II. #7 Coronary artery disease with previous stent placement. #8 Hyperlipidemia. #9 Hypertension. #10 Obstructive sleep apnea. #11 Chronic tobacco dependence. #12 Bipolar disorder. #13 Opioid dependence, currently on the Zubsolv #14 abnormal troponin, not consistent with acute coronary syndrome, likely secondary to renal failure. Plan We will add a baby aspirin and statin to the patient's medication regime, he does have a known history of coronary artery disease, we will also add small dose of beta aarti. Troponin abnormality not consistent with myocardial infarction. DNP note has been reviewed, I agree with a documented findings and plan of care. Patient was seen and examined.
--- NOTE | 2018-05-01 12:12 | P.PN ---
Subjective Progress Note Date: 05/01/18 Principal diagnosis: This is a 57-year-old male who is seen in follow-up because of recent onset of acute kidney injury and chronic kidney disease resulting in dialysis dependency. He was readmitted with shortness of breath after missing his dialysis for about a week. He says it was because of transportation problems. He was admitted with shortness of breath and pneumonia. He is currently on dialysis is stable. He does make urine He is denying any nausea vomiting has a good appetite is able to walk. Currently on O2 nasal cannula. No nausea vomiting diarrhea abdominal pain no fever chills. He does cough up some yellow sputum but no blood. It should be noted that he has chronic thrombocytopenia which has not been worked up. Possibility of HUS should be considered and he should have a oncology opinion regarding this. 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 HEENT exam no JVP neck is supple no facial asymmetry Lungs are clear to auscultation air entry is less than optimal. Heart sounds are unremarkable for any murmur rub gallop Abdomen soft nontender no organomegaly status masses Extremity exam was trace edema Neurologically awake alert oriented no rash seen. - Labs CBC & Chem 7: 05/01/18 06:24 05/01/18 06:24 Labs: Abnormal Lab Results - Last 24 Hours (Table) 04/30/18 04/30/18 04/30/18 Range/Units 11:44 16:44 21:08 RBC (4.30-5.90) m/uL Hgb (13.0-17.5) gm/dL Hct (39.0-53.0) % MCHC (31.0-37.0) g/dL RDW (11.5-15.5) % Plt Count (150-450) k/uL Sodium (137-145) mmol/L Carbon Dioxide (22-30) mmol/L BUN (9-20) mg/dL Creatinine (0.66-1.25) mg/dL Glucose (74-99) mg/dL POC Glucose (mg/dL) 119 H 118 H 158 H (75-99) mg/dL Calcium (8.4-10.2) mg/dL AST (17-59) U/L Total Protein (6.3-8.2) g/dL Albumin (3.5-5.0) g/dL 04/30/18 05/01/18 05/01/18 Range/Units 22:05 06:24 06:24 RBC 4.22 L (4.30-5.90) m/uL Hgb 11.6 L (13.0-17.5) gm/dL Hct 37.9 L (39.0-53.0) % MCHC 30.5 L (31.0-37.0) g/dL RDW 16.3 H (11.5-15.5) % Plt Count 71 L (150-450) k/uL Sodium 135 L (137-145) mmol/L Carbon Dioxide 21 L (22-30) mmol/L BUN 36 H 37 H (9-20) mg/dL Creatinine 5.30 H* 5.79 H* (0.66-1.25) mg/dL Glucose 155 H (74-99) mg/dL POC Glucose (mg/dL) (75-99) mg/dL Calcium 8.0 L 8.1 L (8.4-10.2) mg/dL AST 14 L (17-59) U/L Total Protein 4.9 L (6.3-8.2) g/dL Albumin 2.6 L (3.5-5.0) g/dL Microbiology - Last 24 Hours (Table) 04/29/18 18:55 Blood Culture - Preliminary Blood No Growth after 24 hours Assessment and Plan Assessment: Impression 1. Acute kidney injury with chronic kidney disease resulting in dialysis dependency. All discharge recently to be dialyzed but has not been dialyzed for 1 week because of transportation problem and was recently admitted with shortness of breath and pneumonia. Currently on dialysis stable. He has a permacath. 2. Chronic kidney disease with baseline creatinine of 2 dated 04/10/2018. Urinalysis benign. Likely nephrosclerosis, but as noted, atypical HUS needs to be considered because of the low platelet count. 3. Chronic thrombocytopenia.It should be noted that he has chronic thrombocytopenia which has not been worked up. Possibility of HUS should be considered and he should have a oncology opinion regarding this. 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 4. Pneumonia. 5. Ejection fraction is maintained at 55-60% recent echo Recommendation 1. Check serum LDH, schistocytes to rule out hemolysis 2. Maintain dialysis on Sunday schedule 3. Suggest oncology hematology opinion regarding the thrombocytopenia. 4. Possibility of biopsy should be considered, the limiting factor is the thrombocytopenia. His platelet count is 71,000
--- NOTE | 2018-05-01 13:49 | P.PN ---
Subjective Progress Note Date: 05/01/18 Principal diagnosis: Shortness of breath, fatigue, weakness This is a 57-year-old gentleman who has had multiple recent admissions for fluid volume overload. He has a history of chronic obstructive pulmonary disease, obstructive sleep apnea, chronic hypoxic and hypercapnic respiratory failure, insulin-dependent diabetes mellitus, diabetic peripheral neuropathy, hepatic nephropathy, chronic renal failure with stage III chronic kidney disease with a baseline creatinine of 1.6 1.7, systolic congestive heart failure with previous ejection fraction 40-45% and subsequent ejection fraction 50-55%. He also has a history of severe ischemic cardiomyopathy and is status post AICD placement, coronary artery disease with previous stent placement, hypertension, hyperlipidemia, depression, bipolar disorder, opioid dependence currently on Zubsolv. Previous acute respiratory failure requiring intubation mechanical ventilatory support. Has has chronic and ongoing tobacco dependence. The patient was recently discharged from here on 04/22/2018. The patient has been receiving hemodialysis but his last treatment was 6 days ago. He presented here to the emergency room last evening with complaints of increasing shortness of breath, fatigue and weakness. His chest x-ray showed increasing bilateral lower lobe infiltrates and suspected pneumonia with no overt evidence of heart failure. White count 6.4. Hemoglobin 11.7. Creatinine 8.27. ProBNP 715. Troponin 0.101, 0.097, 0.099. He is seen today in consultation on the selective care unit. He is awake and alert in no acute distress. He currently denies any worsening shortness of breath. He has a loose nonproductive cough. No chills or night sweats. Currently afebrile. Maintaining O2 saturations in the 90s on 3 L/m per nasal cannula. He is hemodynamically stable. He has been initiated on bronchodilators, Symbicort, Rocephin and azithromycin. The patient was seen again today 05/01/2018 in follow-up on the selective care unit. He is currently awake and alert in no acute distress. He denies any worsening shortness breath, cough or congestion. He did receive hemodialysis with 3 L of fluid removed yesterday. He is also receiving hemodialysis today with an additional 2.5 L to be removed. He is maintaining good O2 saturations in the 90s on 4 L/m nasal cannula. He needs increased encouragement to be up out of bed. White count 5.9. Hemoglobin 11.6. Creatinine 5.79. Objective - Vital Signs Vital signs: Vital Signs Temp 97 F L 05/01/18 04:00 Pulse 104 H 05/01/18 12:00 Resp 18 05/01/18 12:00 BP 136/81 05/01/18 12:00 Pulse Ox 93 L 05/01/18 08:00 Intake & Output 04/30/18 05/01/18 05/01/18 18:59 06:59 18:59 Intake Total 180 400 Output Total 1000 Balance 180 -600 Weight 119.4 kg 117.7 kg Intake: Oral 180 400 Output: Urine 1000 Other: Voiding Method Urinal Urinal Urinal # Voids 1 - Exam Gen. appearance, comfortable awake nonacute distress. Head exam was generally normal. There was no scleral icterus or corneal arcus. Mucous membranes were moist. Neck was supple and without jugular venous distension, thyromegaly, or carotid bruits. Carotids were easily palpable bilaterally. There was no adenopathy. Lungs sounds are diminished bilaterally along with scattered rhonchi and scattered expiratory wheezes without the lung [place] bilaterally. Cardiac exam revealed the PMI to be normally situated and sized. The rhythm was regular and no extrasystoles were noted during several minutes of auscultation. The first and second heart sounds were normal and physiologic splitting of the second heart sound was noted. There were no murmurs, rubs, clicks, or gallops. Abdominal exam revealed normal bowel sounds. The abdomen was soft, non-tender, and without masses, organomegaly, or appreciable enlargement of the abdominal aorta. Examination of the extremities revealed easily palpable radial, femoral and pedal pulses. There was no cyanosis, clubbing or edema. Examination of the skin revealed no evidence of significant rashes, suspicious appearing nevi or other concerning lesions. Neurologically the patient is awake and alert and there is no focal neurological deficit. - Labs CBC & Chem 7: 05/01/18 06:24 05/01/18 06:24 Labs: Abnormal Lab Results - Last 24 Hours (Table) 04/30/18 04/30/18 04/30/18 Range/Units 16:44 21:08 22:05 RBC (4.30-5.90) m/uL Hgb (13.0-17.5) gm/dL Hct (39.0-53.0) % MCHC (31.0-37.0) g/dL RDW (11.5-15.5) % Plt Count (150-450) k/uL Sodium 135 L (137-145) mmol/L Carbon Dioxide 21 L (22-30) mmol/L BUN 36 H (9-20) mg/dL Creatinine 5.30 H* (0.66-1.25) mg/dL Glucose 155 H (74-99) mg/dL POC Glucose (mg/dL) 118 H 158 H (75-99) mg/dL Calcium 8.0 L (8.4-10.2) mg/dL AST (17-59) U/L Total Protein (6.3-8.2) g/dL Albumin (3.5-5.0) g/dL 05/01/18 05/01/18 Range/Units 06:24 06:24 RBC 4.22 L (4.30-5.90) m/uL Hgb 11.6 L (13.0-17.5) gm/dL Hct 37.9 L (39.0-53.0) % MCHC 30.5 L (31.0-37.0) g/dL RDW 16.3 H (11.5-15.5) % Plt Count 71 L (150-450) k/uL Sodium (137-145) mmol/L Carbon Dioxide (22-30) mmol/L BUN 37 H (9-20) mg/dL Creatinine 5.79 H* (0.66-1.25) mg/dL Glucose (74-99) mg/dL POC Glucose (mg/dL) (75-99) mg/dL Calcium 8.1 L (8.4-10.2) mg/dL AST 14 L (17-59) U/L Total Protein 4.9 L (6.3-8.2) g/dL Albumin 2.6 L (3.5-5.0) g/dL Microbiology - Last 24 Hours (Table) 04/29/18 18:55 Blood Culture - Preliminary Blood No Growth after 24 hours Assessment and Plan Assessment: Impression: #1 Acute on chronic hypoxic respiratory failure secondary to acute bilateral lower lobe pneumonia, suspect hospital-acquired as well as an acute exacerbation of chronic obstructive pulmonary disease and fluid volume overload secondary to missed dialysis. #2 Acute on chronic hypercapnic respiratory failure secondary to acute exacerbation of chronic obstructive pulmonary disease secondary to pneumonia. #3 Acute on chronic systolic congestive heart failure with previous ejection fraction 40-45% and most recently 50-55%. #4 Severe ischemic cardiomyopathy status post AICD placement. #5 Acute on chronic renal failure, stage III with previous cardiorenal syndrome and acute tubular necrosis. Patient is now on hemodialysis Sunday however had not received dialysis less since last Sunday, 6 days ago. #6 Diabetes mellitus, type II. #7 Coronary artery disease with previous stent placement. #8 Hyperlipidemia. #9 Hypertension. #10 Obstructive sleep apnea. #11 Chronic tobacco dependence. #12 Bipolar disorder. #13 Opioid dependence, currently on the Zubsolv #14 Poor overall functional performance based on the above-mentioned multiple comorbidities. Plan: The patient was seen and evaluated by Dr. Haile. He is currently stable from the pulmonary standpoint. He received dialysis yesterday and again today. Improvement is accessed fluid volume overload. We will go ahead and continue the patient's current medications for now. He is again educated regarding the importance of dialysis compliance, medication compliance, smoking cessation. Recent patient's history of noncompliance especially hemodialysis he may need inpatient rehabilitation. We'll continue to follow and make further recommendations based on his clinical status. I, the cosigning physician, performed a history & physical examination of the patient. Lungs sounds with crackles in the bilateral posterior bases. Maintaining good O2 saturations in the 90s on 4 L/m per nasal cannula. I discussed the assessment and plan of care with my nurse practitioner, Sil Land. I attest to the above consultation as dictated by her.
[2018-05-01 16:44] LABS: Glucose,Whole Blood 95 mg/dL (75-99)
[2018-05-01 17:02] LABS: Glucose,Whole Blood 118 mg/dL (75-99)
[2018-05-01] MEDS ORDERED: MORPHINE ORAL SOLN 10 MG/5 ML CUP PO PRN (19:26)
[2018-05-01 21:17] LABS: Glucose,Whole Blood 105 mg/dL (75-99)
[2018-05-01] MEDS: SODIUM CHLORIDE 0.9% 1,000 ML IV SCH (21:37)
[2018-05-01] MEDS: traZODone HCL 100 MG TAB PO SCH (21:38)
[2018-05-01] MEDS: METOPROLOL TARTRATE 25 MG TAB PO SCH (21:48)
[2018-05-01] MEDS: ATORVASTATIN 40 MG TAB PO SCH (21:48)
[2018-05-01] MEDS: QUEtiapine 200 MG TAB PO SCH (22:25)
[2018-05-02 05:55] LABS: Glucose,Whole Blood 85 mg/dL (75-99)
[2018-05-02] MEDS: INSULIN ASPART 100 UNIT/ML 1 ML 10 ML VIAL SQ SCH ×4 (06:05→21:55)
[2018-05-02] MEDS: PANTOPRAZOLE 40 MG TABLET PO SCH (06:10)
[2018-05-02] MEDS: ALBUTEROL NEBULIZED 2.5 MG/3 ML INHALATION PRN ×4 (07:32→20:04)
[2018-05-02] MEDS: SYMBICORT 80-4.5 MCG INHALER INHALATION SCH ×3 (07:33→20:06)
[2018-05-02 07:51] LABS: Anisocytosis Slight; Basophils % (A) 0 %; Eosinophils # (A) 0.2 k/uL (0-0.7); Eosinophils % (A) 3 %; HCT 37.8 % (39.0-53.0); HGB 11.5 gm/dL (13.0-17.5); Hypochromasia Moderate; Lymphocytes # (A) 1.2 k/uL (1.0-4.8); Lymphocytes % (A) 26 %; MCH 27.2 pg (25.0-35.0); MCHC 30.4 g/dL (31.0-37.0); MCV 89.4 fL (80.0-100.0); Mean Platelet Volume 10.1; Monocytes # (A) 0.4 k/uL (0-1.0); Monocytes % (A) 9 %; Neutrophils # (A) 2.9 k/uL (1.3-7.7); Neutrophils % (A) 59 %; RBC 4.23 m/uL (4.30-5.90); RDW 16.3 % (11.5-15.5); WBC 4.9 k/uL (3.8-10.6)
[2018-05-02 07:57] LABS: Platelet Count 61 k/uL (150-450)
[2018-05-02 07:59] LABS: Albumin 2.7 g/dL (3.5-5.0); Calcium 8.2 mg/dL (8.4-10.2); Potassium 4.5 mmol/L (3.5-5.1); Total Bilirubin 0.4 mg/dL (0.2-1.3)
--- NOTE | 2018-05-02 08:20 | P.PN ---
Subjective Progress Note Date: 05/02/18 Principal diagnosis: Acute respiratory failure This is a 57-year-old -[place] gentleman with past medical history significant for diabetes, hypertension, hyperlipidemia, ischemic cardio myopathy with prior AICD, chronic kidney disease on dialysis, bipolar disorder, COPD, obstructive sleep apnea, peripheral neuropathy, coronary artery disease with prior stent placement, depression, opioid dependence, nicotine dependence. He was recently discharged from here on the 13 of this month, patient has been receiving hemodialysis, but missed several treatments, his last one was 7 days prior to admission. He presented to the emergency room with symptoms of worsening shortness of breath with associated fatigue and weakness. His chest x -ray revealed increasing bilateral lower lobe infiltrates and suspected pneumonia with no evidence of congestive heart failure. On follow-up with the patient today, he is feeling overall better. The shortness of breath is better. The bilateral lower extremities edema is better. He continues to be on Lasix by mouth. Beside that he is on antibiotics. Objective - Vital Signs Vital signs: Vital Signs Temp 96.8 F L 05/02/18 04:00 Pulse 88 05/02/18 07:51 Resp 16 05/02/18 04:00 BP 125/75 05/02/18 04:00 Pulse Ox 95 05/02/18 07:33 Intake & Output 05/01/18 05/02/18 05/02/18 18:59 06:59 18:59 Intake Total 474 Output Total 700 500 Balance -700 -26 Weight 115.5 kg Intake: Oral 474 Output: Urine 700 500 Other: Voiding Method Urinal Urinal # Voids 0 1 - Constitutional General appearance: Present: no acute distress - Respiratory Respiratory: bilateral: rales - Cardiovascular Rhythm: regular Heart sounds: normal: S1, S2 - Labs CBC & Chem 7: 05/02/18 06:45 05/02/18 06:45 Labs: Abnormal Lab Results - Last 24 Hours (Table) 05/01/18 05/01/18 05/02/18 Range/Units 17:01 21:16 06:45 RBC 4.23 L (4.30-5.90) m/uL Hgb 11.5 L (13.0-17.5) gm/dL Hct 37.8 L (39.0-53.0) % MCHC 30.4 L (31.0-37.0) g/dL RDW 16.3 H (11.5-15.5) % Plt Count 61 L (150-450) k/uL Sodium (137-145) mmol/L BUN (9-20) mg/dL Creatinine (0.66-1.25) mg/dL POC Glucose (mg/dL) 118 H 105 H (75-99) mg/dL Calcium (8.4-10.2) mg/dL AST (17-59) U/L Total Protein (6.3-8.2) g/dL Albumin (3.5-5.0) g/dL 05/02/18 Range/Units 06:45 RBC (4.30-5.90) m/uL Hgb (13.0-17.5) gm/dL Hct (39.0-53.0) % MCHC (31.0-37.0) g/dL RDW (11.5-15.5) % Plt Count (150-450) k/uL Sodium 136 L (137-145) mmol/L BUN 23 H (9-20) mg/dL Creatinine 4.34 H (0.66-1.25) mg/dL POC Glucose (mg/dL) (75-99) mg/dL Calcium 8.2 L (8.4-10.2) mg/dL AST 14 L (17-59) U/L Total Protein 5.0 L (6.3-8.2) g/dL Albumin 2.7 L (3.5-5.0) g/dL Microbiology - Last 24 Hours (Table) 04/29/18 18:55 Blood Culture - Preliminary Blood No Growth after 48 hours Assessment and Plan Assessment: Assessment #1 end-stage renal disease on hemodialysis #2 volume overload secondary to missing dialysis #3 acute hypoxic respiratory failure secondary to pneumonia #4 coronary artery disease and prior revascularization #5 ischemic cardiomyopathy #6 multiple comorbid conditions Plan #1 overall the patient is doing better clinically #2 he is on antibiotics #3 continue Lasix by mouth #4 follow-up with the patient.
[2018-05-02] MEDS: PREGABALIN 75 MG CAP PO SCH ×2 (09:16→21:51)
[2018-05-02] MEDS: FUROSEMIDE 20 MG TAB PO SCH ×2 (09:16→21:51)
[2018-05-02] MEDS: ESCITALOPRAM 20 MG TAB PO SCH (09:17)
[2018-05-02] MEDS: METOPROLOL TARTRATE 25 MG TAB PO SCH ×2 (09:17→21:51)
[2018-05-02] MEDS: ALLOPURINOL 100 MG TAB PO SCH (09:17)
[2018-05-02] MEDS: GABAPENTIN 300 MG CAP PO SCH (09:17)
[2018-05-02] MEDS: AZITHROMYCIN 500 MG TAB PO SCH (09:17)
[2018-05-02] MEDS: ASPIRIN 81 MG PO SCH (09:17)
[2018-05-02] MEDS: amLODIPine 10 MG TAB PO SCH (09:17)
--- NOTE | 2018-05-02 10:15 | P.PN ---
Subjective Progress Note Date: 05/02/18 This is a 57-year-old male patient of Dr. Regalado who presented to the emergency room with increased shortness of breath. Patient presented to the emergency room on Sunday the left AMA. Patient states he has not received dialysis since last Sunday. She has known past medical history of coronary artery disease, chest pain, heart failure, COPD, diabetes mellitus, hyperlipidemia, hypertension , myocardial infarction, pneumonia, renal disease with sleep apnea and AICD. Chest x-ray completed emergency room showing increasing bilateral lower lobe pulmonary infiltrates compared to last exam and consistent with pneumonia. No definitive heart failure. EKG completed emergency room showing normal sinus rhythm and left bundle branch block. Creatinine on admission 7.92 and bun 59. Troponin level 0.101, 0.097 and 0.099. Patient denies chest pain at this time. Patient placed on Rocephin for antibiotic. Dr. Flores per nephrology has been consulted. Patient denies nausea vomiting or diarrhea. On 05/01/2018 patient is currently resting comfortably in bed. Patient does state he feels improved from yesterday. Patient did receive dialysis yesterday and is planning to receive dialysis again today per nephrology. Creatinine 5.79 and bun 37. Patient remains on Zithromax and Rocephin for antibiotic coverage for pneumonia. Patient also receiving 60 mg by mouth Lasix twice a day. Patient denies chest pain or shortness of breath. Denies nausea vomiting or diarrhea. Denies any urinary burning or frequency. On 05/02/2018 patient is currently resting comfortably in bed. Patient is A and O 3. Patient did receive dialysis 2 days in a row 04/30 and 05/01. Plan for patient to receive dialysis tomorrow 05/03. Platelets continuing to trend down. Platelets today 61. Oncology has been consulted. Patient denies chest pain or shortness of breath. Denies nausea vomiting or diarrhea. Denies any urinary burning or frequency Objective - Vital Signs Vital signs: Vital Signs Temp 97.1 F L 05/02/18 08:30 Pulse 80 05/02/18 08:30 Resp 16 05/02/18 08:30 BP 125/72 05/02/18 08:30 Pulse Ox 95 05/02/18 08:30 Intake & Output 05/01/18 05/02/18 05/02/18 18:59 06:59 18:59 Intake Total 474 118 Output Total 700 500 Balance -700 -26 118 Weight 115.5 kg Intake: Oral 474 118 Output: Urine 700 500 Other: Voiding Method Urinal Urinal Urinal # Voids 0 1 - Exam Head normocephalic Neck supple Lungs bilateral rhonchi Heart regular rate and rhythm S1-S2, no rub or gallop Abdomen is soft nontender nondistended positive bowel sounds no hepatosplenomegaly Extremities no edema Neuro alert and orientated to 3 - Labs CBC & Chem 7: 05/02/18 06:45 05/02/18 06:45 Labs: Abnormal Lab Results - Last 24 Hours (Table) 05/01/18 05/01/18 05/02/18 Range/Units 17:01 21:16 06:45 RBC 4.23 L (4.30-5.90) m/uL Hgb 11.5 L (13.0-17.5) gm/dL Hct 37.8 L (39.0-53.0) % MCHC 30.4 L (31.0-37.0) g/dL RDW 16.3 H (11.5-15.5) % Plt Count 61 L (150-450) k/uL Sodium (137-145) mmol/L BUN (9-20) mg/dL Creatinine (0.66-1.25) mg/dL POC Glucose (mg/dL) 118 H 105 H (75-99) mg/dL Calcium (8.4-10.2) mg/dL AST (17-59) U/L Total Protein (6.3-8.2) g/dL Albumin (3.5-5.0) g/dL 05/02/18 Range/Units 06:45 RBC (4.30-5.90) m/uL Hgb (13.0-17.5) gm/dL Hct (39.0-53.0) % MCHC (31.0-37.0) g/dL RDW (11.5-15.5) % Plt Count (150-450) k/uL Sodium 136 L (137-145) mmol/L BUN 23 H (9-20) mg/dL Creatinine 4.34 H (0.66-1.25) mg/dL POC Glucose (mg/dL) (75-99) mg/dL Calcium 8.2 L (8.4-10.2) mg/dL AST 14 L (17-59) U/L Total Protein 5.0 L (6.3-8.2) g/dL Albumin 2.7 L (3.5-5.0) g/dL Microbiology - Last 24 Hours (Table) 04/29/18 18:55 Blood Culture - Preliminary Blood No Growth after 48 hours Assessment and Plan Assessment: 1. Acute on chronic hypoxic respiratory failure secondary to acute bilateral lower lobe pneumonia. Chest x-ray completed showing increasing bilateral lower lobe pulmonary infiltrates compared to last exam and consistent with pneumonia. patient received Rocephin in emergency room. Blood and sputum cultures have been ordered. patient started on Rocephin and azithromycin. Dr. Winter following for pulmonary services. Chest x-ray completed showing expiratory rotated exam. Findings compatible with left lower lobe pneumonia. Patient maintained on Rocephin and Zithromax. Blood culture currently negative. Awaiting sputum sample. 2. Elevated troponin. Troponin level 0.101, 0.097 and 0.099. Cardiology services have been consulted. Per cardiology troponin elevation likely secondary to renal failure. Cardiology services have added baby aspirin, Lipitor and Lopressor. 3. Acute on chronic renal failure stage III. Patient states he missed 2 days of dialysis during last dialysis today Sunday. Dr. Flores per nephrology has been consulted. Normal hemodialysis schedule Sunday. creatinine 7.92 and bun 59. Social work has been consulted to address issue dialysis arrangement ride for further dialysis outpatient. Patient did receive dialysis yesterday and will receive dialysis again today. Patient received dialysis on 04/30 and 05/01. Creatinine 4.34 and bun 23. Patient on 60mg Lasix twice a day. Patient to get hemodialysis tomorrow a 05/03 4. History of Coronary artery disease 5. Essential hypertension. Home blood pressure medications have been reordered. per nursing staff blood pressure medication have been held due to episodes of low blood pressures. Blood pressure Parameters set for [facility] 6. Hyperlipidemia. Patient on Lipitor per cardiology 7. Diabetes mellitus type 2. Sliding scale insulin has been ordered 8. Chronic hypoxic respiratory failure. Patient does wear home O2 9. Chronic sleep apnea 10. Severe ischemic cardiomyopathy. Patient does have AICD recent EF 50-55% with acute on chronic systolic dysfunction. Cardiology has been consulted 11. Bipolar. Home medications resumed 12.Thrombocytopenia. Platelet level 71. Continue to monitor closely. Platelets 61. Oncology has been consulted DVT prophylaxis SCDs. GI prophylaxis Protonix Social work has been consulted for possible ECF placement due to increased weakness and inability to get hemodialysis. I performed an examination of the patient and discussed their management with the Nurse Practitioner. I have reviewed the Nurse Practitioner's notes and agree with the documented findings and plan of care
--- NOTE | 2018-05-02 11:17 | P.PN ---
Subjective Progress Note Date: 05/02/18 Principal diagnosis: This is a 57-year-old male who is seen in follow-up because of recent onset of acute kidney injury and chronic kidney disease resulting in dialysis dependency. He was readmitted with shortness of breath after missing his dialysis for about a week. He says it was because of transportation problems. He was admitted with shortness of breath and pneumonia. He has had 2 dialysis since admission, last dialysis being yesterday. There was no problem during dialysis as per the patient. He is denying any nausea vomiting has a good appetite is able to walk. Currently on O2 nasal cannula. No diarrhea abdominal pain no fever chills. He does cough up some yellow sputum but no blood. Past medical history of coronary artery disease, chest pain, heart failure, COPD , diabetes mellitus, hyperlipidemia, hypertension, myocardial infarction It should be noted that he has chronic thrombocytopenia which has not been worked up. Possibility of HUS should be considered and he should have a oncology opinion regarding this. This is atypical HUS it can be treated Objective - Vital Signs Vital signs: Vital Signs Temp 97.1 F L 05/02/18 08:30 Pulse 80 05/02/18 08:30 Resp 16 05/02/18 08:30 BP 125/72 05/02/18 08:30 Pulse Ox 95 05/02/18 08:30 Intake & Output 05/01/18 05/02/18 05/02/18 18:59 06:59 18:59 Intake Total 474 118 Output Total 700 500 Balance -700 -26 118 Weight 115.5 kg Intake: Oral 474 118 Output: Urine 700 500 Other: Voiding Method Urinal Urinal Urinal # Voids 0 1 On exam she looks somewhat depressed. Responds and answers questions and follows commands A chin exam no JVP neck is supple no facial asymmetry Lungs are significant for coarse crackle at the right base not clear but cough. Good air entry bilaterally Heart sounds are unremarkable for any murmur rub gallop Abdomen soft nontender Extremity exam was trace edema Neurologically awake alert oriented. Looks depressed as mentioned - Labs CBC & Chem 7: 05/02/18 06:45 05/02/18 06:45 Labs: Abnormal Lab Results - Last 24 Hours (Table) 05/01/18 05/01/18 05/02/18 Range/Units 17:01 21:16 06:45 RBC 4.23 L (4.30-5.90) m/uL Hgb 11.5 L (13.0-17.5) gm/dL Hct 37.8 L (39.0-53.0) % MCHC 30.4 L (31.0-37.0) g/dL RDW 16.3 H (11.5-15.5) % Plt Count 61 L (150-450) k/uL Sodium (137-145) mmol/L BUN (9-20) mg/dL Creatinine (0.66-1.25) mg/dL POC Glucose (mg/dL) 118 H 105 H (75-99) mg/dL Calcium (8.4-10.2) mg/dL AST (17-59) U/L Total Protein (6.3-8.2) g/dL Albumin (3.5-5.0) g/dL 05/02/18 Range/Units 06:45 RBC (4.30-5.90) m/uL Hgb (13.0-17.5) gm/dL Hct (39.0-53.0) % MCHC (31.0-37.0) g/dL RDW (11.5-15.5) % Plt Count (150-450) k/uL Sodium 136 L (137-145) mmol/L BUN 23 H (9-20) mg/dL Creatinine 4.34 H (0.66-1.25) mg/dL POC Glucose (mg/dL) (75-99) mg/dL Calcium 8.2 L (8.4-10.2) mg/dL AST 14 L (17-59) U/L Total Protein 5.0 L (6.3-8.2) g/dL Albumin 2.7 L (3.5-5.0) g/dL Microbiology - Last 24 Hours (Table) 04/29/18 18:55 Blood Culture - Preliminary Blood No Growth after 48 hours Assessment and Plan Assessment: Impression 1. Acute kidney injury with chronic kidney disease resulting in dialysis dependency. Missed dialysis as an outpatient presumably from transport issues and after admission has had 2 dialysis, last dialysis yesterday and is stable. He has a permacath. 2. Chronic kidney disease with baseline creatinine of 2 dated 04/10/2018. Urinalysis benign. Likely nephrosclerosis, but as noted, atypical HUS needs to be considered because of the low platelet count. 3. Chronic thrombocytopenia.It should be noted that he has chronic thrombocytopenia which has not been worked up. Possibility of HUS should be considered and he should have a oncology opinion regarding this. 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 4. Pneumonia. 5. Ejection fraction is maintained at 55-60% recent echo, ischemic cardiomyopathy. Patient does have AICD recent EF 50-55% with acute on chronic systolic dysfunction. Recommendation 1. Hematology is following regarding the cause of his chronic thrombocytopenia. , 2. Maintain dialysis on Sunday schedule 3. Possibility of biopsy should be considered, the limiting factor is the thrombocytopenia. His platelet count is 71,000
[2018-05-02 11:24] LABS: Glucose,Whole Blood 127 mg/dL (75-99)
--- NOTE | 2018-05-02 12:19 | XR ---
EXAMINATION TYPE: XR chest 1V DATE OF EXAM: 05/02/2018 COMPARISON: 04/30/2018 INDICATION: CHF TECHNIQUE: Single frontal view of the chest is obtained. FINDINGS: The heart size is enlarged. The pulmonary vasculature is normal. There is some streak opacity at the level of the aortopulmonic window within the left mid suprahilar region. Follow-up is recommended. Catheter is present on the right with the tips in the superior vena cava region. Pacemaker overlies l eft chest. IMPRESSION: 1. Cardiomegaly. 2. Catheter on the right. 3. New density in the left perihilar region. Follow-up is recommended. This could be related to atele ctasis or pneumonia. This is apparently new from 04/30/2018 and is not evident on older exams.
--- NOTE | 2018-05-02 13:56 | P.CONS ---
History of Present Illness - Reason for Consult Consult date: 05/02/18 thrombocytopenia Requesting physician: Mary Haas - Chief Complaint ANGEL - History of Present Illness Mr. Hurst has a very complex medical history including DM with renal failure requiring dialysis, HTN, hyperlipidemia, COPD, CHF and diabetic neuropathy. Pt seen in consult for thrombocytopenia, when seen he is very lethargic, answered a few questions appropriately with nodding his head and he was able to tell me that his lind is for dialysis. Denied pain, ANGEL or knowledge of blood problems. Review of Systems ROS unobtainable: due to mental status Past Medical History Past Medical History: Coronary Artery Disease (CAD), Chest Pain / Angina, Heart Failure, COPD, Diabetes Mellitus, Hyperlipidemia, Hypertension, Myocardial Infarction (OR), Pneumonia, Renal Disease, Sleep Apnea/CPAP/BIPAP Additional Past Medical History / Comment(s): suspected obstructive sleep apnea , insulin-dependent diabetes mellitus, diabetic peripheral neuropathy, diabetic nephropathy, chronic renal failure with stage III chronic kidney disease with a baseline creatinine of 1.6-1.7, history of CHF and based on that echocardiogram that was done in 2018, the patient had a ejection fraction of 40-45%, history of severe ischemic cardiac myopathy and the patient has a AICD in place, coronary artery disease, previous history of acute respiratory failure requiring intubation mechanical ventilation, bipolar disorder, right ankle sprain wearing a immobilizing boot on outpatient basis Last Myocardial Infarction Date:: 2004 History of Any Multi-Drug Resistant Organisms: None Reported Past Surgical History: AICD, Heart Catheterization With Stent, Pacemaker Past Anesthesia/Blood Transfusion Reactions: No Reported Reaction Date of Last Stent Placement:: 2004 Type of Cardiac Device: Permanent Pacemaker, AICD Device Placement Date:: 09/2004 Past Psychological History: Bipolar Smoking Status: Current every day smoker Past Alcohol Use History: None Reported Additional Past Alcohol Use History / Comment(s): STARTED SMOKING AT AGE 19 SMOKED 1PPD THEN DECREASED TO 1 PACK EVERY 3 DAYS. Past Drug Use History: None Reported - Past Family History Father Family Medical History: Cancer Additional Family Medical History / Comment(s): Paternal grandfather with CAD Mother Family Medical History: Cancer Additional Family Medical History / Comment(s): Maternal grandmother had CAD. Mother had cancer. Medications and Allergies Home Medications Medication Instructions Recorded Confirmed Type amLODIPine [Norvasc] 10 mg PO DAILY 01/05/16 04/29/18 History traZODone HCL [Desyrel] 200 mg PO HS 01/05/16 04/29/18 History Allopurinol [Zyloprim] 100 mg PO DAILY 05/21/17 04/29/18 History QUEtiapine [SEROquel] 200 mg PO HS 05/21/17 04/29/18 History Albuterol Inhaler [Ventolin Hfa 2 puff INHALATION RT-QID PRN 11/25/17 04/29/18 History Inhaler] Fluticasone/Vilanterol [Breo 1 puff INHALATION RT-DAILY 11/25/17 04/29/18 History Ellipta 100-25 Mcg Inhaler] Pregabalin [Lyrica] 75 mg PO BID 11/25/17 04/29/18 History Pravastatin Sodium [Pravachol] 40 mg PO HS 01/14/18 04/29/18 History Buprenorphine HCl/Naloxone HCl 1 tab SUBLINGUAL BID PRN 04/09/18 04/29/18 History [Zubsolv 5.7-1.4 mg Tablet Sl] Escitalopram [Lexapro] 20 mg PO DAILY 04/09/18 04/29/18 History Gabapentin [Neurontin] 300 mg PO DAILY 04/09/18 04/29/18 History HYDROcodone/APAP 5-325MG [[place] 1 tab PO TID PRN 04/09/18 04/29/18 History 5-325] Furosemide [Lasix] 60 mg PO BID #90 tab 04/22/18 04/29/18 Rx Allergies Allergy/AdvReac Type Severity Reaction Status Date / Time Penicillins Allergy Unknown Verified 04/29/18 18:03 Physical Exam Vitals: Vital Signs Temp Pulse Pulse Resp BP Pulse Ox 05/02/18 11:31 92 05/02/18 11:21 92 05/02/18 08:30 97.1 F L 80 16 125/72 95 05/02/18 07:51 88 05/02/18 07:33 83 95 05/02/18 04:00 96.8 F L 76 16 125/75 97 05/02/18 00:00 98 F 78 16 107/78 95 05/01/18 20:53 90 05/01/18 20:43 90 05/01/18 20:00 97.4 F L 91 16 127/81 96 08/22/18 16:15 96 05/01/18 16:02 88 05/01/18 16:00 97.0 F L 94 18 113/79 95 Intake and Output 05/01/18 05/02/18 05/02/18 22:59 06:59 14:59 Intake Total 237 237 118 Output Total 700 500 Balance -463 -263 118 Intake: Oral 237 237 118 Output: Urine 700 500 Other: Voiding Method Urinal Urinal Urinal # Voids 1 Weight 115.5 kg - Constitutional lethargic, snoring at times, nodded his head and answered a few questions General appearance: no acute distress, obese - EENT Eyes: anicteric sclerae - Neck Neck: no lymphadenopathy - Respiratory Respiratory: bilateral: diminished - Cardiovascular Heart sounds: normal: S1, S2 - Gastrointestinal General gastrointestinal: no absent bowel sounds, no decreased bowel sounds, no distended, no hepatomegaly, no hyperactive bowel sounds, normal bowel sounds, no organomegaly, no rigid, no scaphoid, soft, no splenomegaly, no umbilical hernia, no ventral hernia - Integumentary Integumentary: normal turgor - Neurologic unable to assess - Musculoskeletal unable to assess - Psychiatric unable to assess Results CBC & Chem 7: 05/02/18 06:45 05/02/18 06:45 Labs: Abnormal Lab Results - Last 24 Hours (Table) 05/01/18 05/01/18 05/02/18 Range/Units 17:01 21:16 06:45 RBC 4.23 L (4.30-5.90) m/uL Hgb 11.5 L (13.0-17.5) gm/dL Hct 37.8 L (39.0-53.0) % MCHC 30.4 L (31.0-37.0) g/dL RDW 16.3 H (11.5-15.5) % Plt Count 61 L (150-450) k/uL Sodium (137-145) mmol/L BUN (9-20) mg/dL Creatinine (0.66-1.25) mg/dL POC Glucose (mg/dL) 118 H 105 H (75-99) mg/dL Calcium (8.4-10.2) mg/dL AST (17-59) U/L Total Protein (6.3-8.2) g/dL Albumin (3.5-5.0) g/dL 05/02/18 05/02/18 Range/Units 06:45 11:19 RBC (4.30-5.90) m/uL Hgb (13.0-17.5) gm/dL Hct (39.0-53.0) % MCHC (31.0-37.0) g/dL RDW (11.5-15.5) % Plt Count (150-450) k/uL Sodium 136 L (137-145) mmol/L BUN 23 H (9-20) mg/dL Creatinine 4.34 H (0.66-1.25) mg/dL POC Glucose (mg/dL) 127 H (75-99) mg/dL Calcium 8.2 L (8.4-10.2) mg/dL AST 14 L (17-59) U/L Total Protein 5.0 L (6.3-8.2) g/dL Albumin 2.7 L (3.5-5.0) g/dL Microbiology - Last 24 Hours (Table) 04/29/18 18:55 Blood Culture - Preliminary Blood No Growth after 48 hours Assessment and Plan (1) Thrombocytopenia Narrative/Plan: Records reviewed, thrombocytopenia noted as far back as 2014 though not as severe as this visit. Acute illness and multiple complex medical conditions are likely contributing low platelets. Hematological work up ordered. Currently platelets are adequate for anticoagulation if needed, close monitoring for bleeding, labs daily. Current Visit: Yes Status: Chronic Priority: Medium Code(s): D69.6 - THROMBOCYTOPENIA, UNSPECIFIED SNOMED Code(s): 424785400
--- NOTE | 2018-05-02 14:52 | P.PN ---
Subjective Progress Note Date: 05/02/18 Principal diagnosis: Shortness of breath, fatigue, weakness This is a 57-year-old gentleman who has had multiple recent admissions for fluid volume overload. He has a history of chronic obstructive pulmonary disease, obstructive sleep apnea, chronic hypoxic and hypercapnic respiratory failure, insulin-dependent diabetes mellitus, diabetic peripheral neuropathy, hepatic nephropathy, chronic renal failure with stage III chronic kidney disease with a baseline creatinine of 1.6 1.7, systolic congestive heart failure with previous ejection fraction 40-45% and subsequent ejection fraction 50-55%. He also has a history of severe ischemic cardiomyopathy and is status post AICD placement, coronary artery disease with previous stent placement, hypertension, hyperlipidemia, depression, bipolar disorder, opioid dependence currently on Zubsolv. Previous acute respiratory failure requiring intubation mechanical ventilatory support. Has has chronic and ongoing tobacco dependence. The patient was recently discharged from here on 04/22/2018. The patient has been receiving hemodialysis but his last treatment was 6 days ago. He presented here to the emergency room last evening with complaints of increasing shortness of breath, fatigue and weakness. His chest x-ray showed increasing bilateral lower lobe infiltrates and suspected pneumonia with no overt evidence of heart failure. White count 6.4. Hemoglobin 11.7. Creatinine 8.27. ProBNP 715. Troponin 0.101, 0.097, 0.099. He is seen today in consultation on the selective care unit. He is awake and alert in no acute distress. He currently denies any worsening shortness of breath. He has a loose nonproductive cough. No chills or night sweats. Currently afebrile. Maintaining O2 saturations in the 90s on 3 L/m per nasal cannula. He is hemodynamically stable. He has been initiated on bronchodilators, Symbicort, Rocephin and azithromycin. The patient was seen again today 05/01/2018 in follow-up on the selective care unit. He is currently awake and alert in no acute distress. He denies any worsening shortness breath, cough or congestion. He did receive hemodialysis with 3 L of fluid removed yesterday. He is also receiving hemodialysis today with an additional 2.5 L to be removed. He is maintaining good O2 saturations in the 90s on 4 L/m nasal cannula. He needs increased encouragement to be up out of bed. White count 5.9. Hemoglobin 11.6. Creatinine 5.79. Patient was seen again today 05/02/2018 in follow-up on the selective care unit. He is currently resting comfortably in bed. He arouses to verbal stimuli. He is maintaining good O2 saturations in the mid 90s on 4 L/m per nasal cannula. She's been afebrile. Hemodynamically stable. He is back on a Sunday schedule for his hemodialysis. He is also being worked up for chronic thrombocytopenia. Hematology is on the case. White count 4.9. Hemoglobin 11.5. Platelet count 61,000. Creatinine 4.34. He is continued on DuoNeb inhalations, Symbicort, antibiotics in form of azithromycin. Objective - Vital Signs Vital signs: Vital Signs Temp 97.7 F 05/02/18 12:00 Pulse 82 05/02/18 12:00 Resp 18 05/02/18 12:00 BP 122/74 05/02/18 12:00 Pulse Ox 96 05/02/18 12:00 Intake & Output 05/01/18 05/02/18 05/02/18 18:59 06:59 18:59 Intake Total 474 118 Output Total 700 500 Balance -700 -26 118 Weight 115.5 kg Intake: Oral 474 118 Output: Urine 700 500 Other: Voiding Method Urinal Urinal Urinal # Voids 0 1 - Exam Gen. appearance, comfortable awake no acute distress. Head exam was generally normal. There was no scleral icterus or corneal arcus. Mucous membranes were moist. Neck was supple and without jugular venous distension, thyromegaly, or carotid bruits. Carotids were easily palpable bilaterally. There was no adenopathy. Lungs sounds are diminished bilaterally along with scattered rhonchi and scattered expiratory wheezes without the lung [place] bilaterally. Cardiac exam revealed the PMI to be normally situated and sized. The rhythm was regular and no extrasystoles were noted during several minutes of auscultation. The first and second heart sounds were normal and physiologic splitting of the second heart sound was noted. There were no murmurs, rubs, clicks, or gallops. Abdominal exam revealed normal bowel sounds. The abdomen was soft, non-tender, and without masses, organomegaly, or appreciable enlargement of the abdominal aorta. Examination of the extremities revealed easily palpable radial, femoral and pedal pulses. There was no cyanosis, clubbing or edema. Examination of the skin revealed no evidence of significant rashes, suspicious appearing nevi or other concerning lesions. Neurologically the patient is awake and alert and there is no focal neurological deficit. - Labs CBC & Chem 7: 05/02/18 06:45 05/02/18 06:45 Labs: Abnormal Lab Results - Last 24 Hours (Table) 05/01/18 05/01/18 05/02/18 Range/Units 17:01 21:16 06:45 RBC 4.23 L (4.30-5.90) m/uL Hgb 11.5 L (13.0-17.5) gm/dL Hct 37.8 L (39.0-53.0) % MCHC 30.4 L (31.0-37.0) g/dL RDW 16.3 H (11.5-15.5) % Plt Count 61 L (150-450) k/uL Sodium (137-145) mmol/L BUN (9-20) mg/dL Creatinine (0.66-1.25) mg/dL POC Glucose (mg/dL) 118 H 105 H (75-99) mg/dL Calcium (8.4-10.2) mg/dL AST (17-59) U/L Total Protein (6.3-8.2) g/dL Albumin (3.5-5.0) g/dL 05/02/18 05/02/18 Range/Units 06:45 11:19 RBC (4.30-5.90) m/uL Hgb (13.0-17.5) gm/dL Hct (39.0-53.0) % MCHC (31.0-37.0) g/dL RDW (11.5-15.5) % Plt Count (150-450) k/uL Sodium 136 L (137-145) mmol/L BUN 23 H (9-20) mg/dL Creatinine 4.34 H (0.66-1.25) mg/dL POC Glucose (mg/dL) 127 H (75-99) mg/dL Calcium 8.2 L (8.4-10.2) mg/dL AST 14 L (17-59) U/L Total Protein 5.0 L (6.3-8.2) g/dL Albumin 2.7 L (3.5-5.0) g/dL Microbiology - Last 24 Hours (Table) 04/29/18 18:55 Blood Culture - Preliminary Blood No Growth after 48 hours Assessment and Plan Assessment: Impression: #1 Acute on chronic hypoxic respiratory failure secondary to acute bilateral lower lobe pneumonia, suspect hospital-acquired as well as an acute exacerbation of chronic obstructive pulmonary disease and fluid volume overload secondary to missed dialysis. #2 Acute on chronic hypercapnic respiratory failure secondary to acute exacerbation of chronic obstructive pulmonary disease secondary to pneumonia. #3 Acute on chronic systolic congestive heart failure with previous ejection fraction 40-45% and most recently 50-55%. #4 Severe ischemic cardiomyopathy status post AICD placement. #5 Acute on chronic renal failure, stage III with previous cardiorenal syndrome and acute tubular necrosis. Patient is now on hemodialysis Sunday however had not received dialysis less since last Sunday, 6 days ago. #6 Diabetes mellitus, type II. #7 Coronary artery disease with previous stent placement. #8 Hyperlipidemia. #9 Hypertension. #10 Obstructive sleep apnea. #11 Chronic tobacco dependence. #12 Bipolar disorder. #13 Opioid dependence, currently on Zubsolv #14 Poor overall functional performance based on the above-mentioned multiple comorbidities. Plan: The patient was seen and evaluated by Dr. Haile. He is currently stable from the pulmonary standpoint. Chest x-ray and labs reviewed. We will go ahead and continue the patient's current medications for now. We'll continue to follow and make further recommendations based on his clinical status. I, the cosigning physician, performed a history & physical examination of the patient. Lungs sounds with crackles in the bilateral posterior bases. Maintaining good O2 saturations in the 90s on 4 L/m per nasal cannula. I discussed the assessment and plan of care with my nurse practitioner, Sil Land. I attest to the above consultation as dictated by her.
[2018-05-02 16:34] LABS: Glucose,Whole Blood 101 mg/dL (75-99)
[2018-05-02] MEDS: cefTRIAXone IN SWFI 1,000 MG/10 ML SYRINGE IVP SCH (17:54)
[2018-05-02 19:31] LABS: Protein, Total 4.9 g/dL (6.2-8.2); Rheumatoid Factor 8 IU/mL (0-15)
[2018-05-02] MEDS: SODIUM CHLORIDE 0.9% 1,000 ML IV SCH (20:10)
[2018-05-02] MEDS: QUEtiapine 200 MG TAB PO SCH (21:51)
[2018-05-02] MEDS: traZODone HCL 100 MG TAB PO SCH (21:51)
[2018-05-02] MEDS: ATORVASTATIN 40 MG TAB PO SCH (21:51)
[2018-05-02 21:57] LABS: Glucose,Whole Blood 119 mg/dL (75-99)
[2018-05-03 07:41] LABS: Glucose,Whole Blood 92 mg/dL (75-99)
[2018-05-03] MEDS: INSULIN ASPART 100 UNIT/ML 1 ML 10 ML VIAL SQ SCH ×4 (07:56→21:18)
[2018-05-03] MEDS: ALBUTEROL NEBULIZED 2.5 MG/3 ML INHALATION PRN ×4 (08:00→20:44)
[2018-05-03] MEDS: SYMBICORT 80-4.5 MCG INHALER INHALATION SCH ×2 (08:00→20:45)
--- NOTE | 2018-05-03 08:37 | P.PN ---
Subjective Progress Note Date: 05/03/18 Principal diagnosis: This is a 57-year-old male who is seen in follow-up because of recent onset of acute kidney injury and chronic kidney disease resulting in dialysis dependency. He was readmitted with shortness of breath after missing his dialysis for about a week. He says it was because of transportation problems. He was admitted with shortness of breath and pneumonia. He has had 2 dialysis since admission, last dialysis being day before yesterday. There was no problem during dialysis as per the patient. He is fairly obtunded today he opens eyes but barely able to respond seems to be oriented to place and time. His blood pressure is somewhat low, last one was 106/74, prior to that was 137/ 88 heart rate is in the 80s temp is 97.6 therefore no evidence of any sepsis. He has a permacath on the right chest. He is being worked up for chronic thrombocytopenia, we will had watch for any TTP-like disease. He remains on nasal cannula oxygen. Past medical history of coronary artery disease, chest pain, heart failure, COPD , diabetes mellitus, hyperlipidemia, hypertension, myocardial infarction It should be noted that he has chronic thrombocytopenia which has not been worked up. Possibility of HUS should be considered and he should have a oncology opinion regarding this. 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 HEENT exam difficult to see his JVP neck is supple no facial asymmetry pupils are equal Lungs are difficult to examine as his air entry is very poor. He was unable to sit up even with a lot of help. Heart sounds are unremarkable for any murmur rub gallop Abdomen soft nontender Extremity exam was trace edema Neurologically as mentioned above sleepy arousable but extremely weak - Labs CBC & Chem 7: 05/02/18 06:45 05/02/18 06:45 Labs: Abnormal Lab Results - Last 24 Hours (Table) 05/02/18 05/02/18 05/02/18 Range/Units 06:45 11:19 16:32 POC Glucose (mg/dL) 127 H 101 H (75-99) mg/dL Total Protein (PEP) 4.9 L (6.2-8.2) g/dL 05/02/18 Range/Units 21:55 POC Glucose (mg/dL) 119 H (75-99) mg/dL Total Protein (PEP) (6.2-8.2) g/dL Microbiology - Last 24 Hours (Table) 04/29/18 18:55 Blood Culture - Preliminary Blood No Growth after 72 hours Assessment and Plan Assessment: Impression 1. Acute kidney injury with chronic kidney disease resulting in dialysis dependency. Missed dialysis as an outpatient presumably from transport issues and after admission has had 2 dialysis, last dialysis day before yesterday and is stable. He has a permacath. 2. Chronic kidney disease with baseline creatinine of 2 dated 04/10/2018. Urinalysis benign. Likely nephrosclerosis, but as noted, atypical HUS needs to be considered because of the low platelet count. 3. New onset of change in mental status with lethargy cause likely from medications as he is on sacral morphine when necessary lorazepam gabapentin and Lexapro. Is also on trazodone. Rule out any metabolic causes. 4. chronic thrombocytopenia which has not been worked up. Possibility of HUS should be considered and he should have a oncology opinion regarding this. 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 4. Pneumonia. 5. Ejection fraction is maintained at 55-60% recent echo, ischemic cardiomyopathy. Patient does have AICD recent EF 50-55% with acute on chronic systolic dysfunction. Recommendation 1. Hematology is following regarding the cause of his chronic thrombocytopenia. , 2. Maintain dialysis on Sunday schedule, today Sunday he would be dialyzed. 3. Possibility of biopsy should be considered, the limiting factor is the thrombocytopenia. His platelet count is 71,000 4. Repeat chest x-ray dated 05/02/2018 yesterday shows new infiltrate in the r left basilar lung field. 5. Check metabolic profile. 6. Concern for TTP-like syndrome
[2018-05-03 09:16] LABS: Anisocytosis Slight; Basophils % (A) 0 %; Eosinophils # (A) 0.2 k/uL (0-0.7); Eosinophils % (A) 4 %; HCT 38.9 % (39.0-53.0); HGB 12.4 gm/dL (13.0-17.5); Hypochromasia Slight; Lymphocytes # (A) 1.3 k/uL (1.0-4.8); Lymphocytes % (A) 29 %; MCH 27.9 pg (25.0-35.0); MCHC 31.8 g/dL (31.0-37.0); MCV 87.6 fL (80.0-100.0); Mean Platelet Volume 10.5; Monocytes # (A) 0.2 k/uL (0-1.0); Monocytes % (A) 5 %; Neutrophils # (A) 2.6 k/uL (1.3-7.7); Neutrophils % (A) 60 %; RBC 4.44 m/uL (4.30-5.90); RDW 16.1 % (11.5-15.5); WBC 4.4 k/uL (3.8-10.6)
[2018-05-03 09:19] LABS: Platelet Count 57 k/uL (150-450)
[2018-05-03] MEDS: PANTOPRAZOLE 40 MG TABLET PO SCH (09:19)
[2018-05-03] MEDS: AZITHROMYCIN 500 MG TAB PO SCH (09:20)
[2018-05-03] MEDS: ALLOPURINOL 100 MG TAB PO SCH (09:20)
[2018-05-03] MEDS: ASPIRIN 81 MG PO SCH (09:20)
[2018-05-03] MEDS: ESCITALOPRAM 20 MG TAB PO SCH (09:20)
[2018-05-03] MEDS: FUROSEMIDE 20 MG TAB PO SCH ×2 (09:20→21:18)
[2018-05-03] MEDS: GABAPENTIN 300 MG CAP PO SCH (09:22)
[2018-05-03] MEDS: METOPROLOL TARTRATE 25 MG TAB PO SCH ×2 (09:22→21:18)
[2018-05-03] MEDS: PREGABALIN 75 MG CAP PO SCH ×2 (09:23→21:18)
[2018-05-03 09:29] LABS: Calcium 8.6 mg/dL (8.4-10.2); Potassium 5.3 mmol/L (3.5-5.1); Total Bilirubin 0.5 mg/dL (0.2-1.3); Total Protein 5.5 g/dL (6.3-8.2)
--- NOTE | 2018-05-03 10:01 | P.PN ---
Subjective Mr. Hurst is a pleasant 57-year-old male past medical history significant for diabetes mellitus, hypertension, dyslipidemia, ischemic cardiomyopathy status post AICD placement, chronic kidney disease on hemodialysis, COPD, obstructive sleep apnea, peripheral neuropathy, coronary artery disease status post angioplasty, depression, opioid dependence and chronic nicotine dependence. He follows with Dr. Lerner in the office. He is seen and examined laying flat sleeping in bed. He seems quite lethargic, weak and fatigued. He states he underwent dialysis yesterday. Denies significant shortness of breath, no symptoms of chest pain, palpitations or dizziness. Telemetry tracings are unremarkable for an acute arrhythmia. Blood pressure 106 /74 heart rate 84 afebrile noncompliant with oxygen with saturations dropping to 81% on room air. Laboratory data reviewed, hemoglobin 12.4, platelets 57, potassium 5.3, creatinine 5.23, lactate 775, ammonia 38. Objective - Vital Signs Vital signs: Vital Signs Temp 97.6 F 05/03/18 06:39 Pulse 96 05/03/18 08:10 Resp 18 05/03/18 08:53 BP 106/74 05/03/18 06:39 Pulse Ox 91 L 05/03/18 08:53 Intake & Output 05/02/18 05/03/18 05/03/18 18:59 06:59 18:59 Intake Total 658 0 Output Total 1100 Balance 658 -1100 Intake: Oral 658 0 Output: Urine 1100 Other: Voiding Method Urinal Urinal # Voids 1 1 - Exam GENERAL: Obtunded NECK: Supple without JVD or thyromegaly. LUNGS: Respiration equal and unlabored. No wheezes, rales or rhonchi. Diminished bilaterally. Difficult to get full auscultation secondary to poor patient compliance. HEART: Regular rate and rhythm with systolic ejection murmur at, no rubs or gallops. S1 and S2 heard. EXTREMITIES: Normal range of motion, no edema. No clubbing or cyanosis. Peripheral pulses intact. - Labs CBC & Chem 7: 05/03/18 08:44 05/03/18 08:44 Labs: Abnormal Lab Results - Last 24 Hours (Table) 05/02/18 05/02/18 05/02/18 Range/Units 06:45 11:19 16:32 Hgb (13.0-17.5) gm/dL Hct (39.0-53.0) % RDW (11.5-15.5) % Plt Count (150-450) k/uL Potassium (3.5-5.1) mmol/L BUN (9-20) mg/dL Creatinine (0.66-1.25) mg/dL POC Glucose (mg/dL) 127 H 101 H (75-99) mg/dL Ammonia (<30) umol/L Lactate Dehydrogenase (313-618) U/L Total Protein (6.3-8.2) g/dL Total Protein (PEP) 4.9 L (6.2-8.2) g/dL Albumin (3.5-5.0) g/dL 05/02/18 05/03/18 05/03/18 Range/Units 21:55 08:44 08:44 Hgb 12.4 L (13.0-17.5) gm/dL Hct 38.9 L (39.0-53.0) % RDW 16.1 H (11.5-15.5) % Plt Count 57 L (150-450) k/uL Potassium 5.3 H (3.5-5.1) mmol/L BUN 30 H (9-20) mg/dL Creatinine 5.23 H* (0.66-1.25) mg/dL POC Glucose (mg/dL) 119 H (75-99) mg/dL Ammonia (<30) umol/L Lactate Dehydrogenase 775 H (313-618) U/L Total Protein 5.5 L (6.3-8.2) g/dL Total Protein (PEP) (6.2-8.2) g/dL Albumin 3.0 L (3.5-5.0) g/dL 05/03/18 Range/Units 08:44 Hgb (13.0-17.5) gm/dL Hct (39.0-53.0) % RDW (11.5-15.5) % Plt Count (150-450) k/uL Potassium (3.5-5.1) mmol/L BUN (9-20) mg/dL Creatinine (0.66-1.25) mg/dL POC Glucose (mg/dL) (75-99) mg/dL Ammonia 38 H (<30) umol/L Lactate Dehydrogenase (313-618) U/L Total Protein (6.3-8.2) g/dL Total Protein (PEP) (6.2-8.2) g/dL Albumin (3.5-5.0) g/dL Microbiology - Last 24 Hours (Table) 04/29/18 18:55 Blood Culture - Preliminary Blood No Growth after 72 hours Assessment and Plan Assessment: ASSESSMENT Chronic end-stage renal failure on hemodialysis Fluid overload secondary to missed dialysis Acute hypoxic respiratory failure secondary to pneumonia Pneumonia History of coronary artery disease status post angioplasty Ischemic cardiomyopathy status post AICD placement Hypertension Diabetes mellitus COPD Dyslipidemia Obstructive sleep apnea PLAN Ongoing hypoxic events, repeat chest xray yesterday indicates new density suggestive of pneumonia when compared to earlier exam 04/30. Advised patient and his nurse regarding compliance with supplemental oxygen. Ongoing medical management. No further cardiac intervention required at this time. We will continue to follow as needed, please feel free to call with further questions or concerns. Follow up with Dr. Lerner upon discharge. Nurse Practitioner note has been reviewed, I agree with a documented findings and plan of care. Patient was seen and examined.
--- NOTE | 2018-05-03 10:45 | US ---
EXAMINATION TYPE: US abdomen complete DATE OF EXAM: 05/03/2018 COMPARISON: NONE CLINICAL HISTORY: low plt, please comment on liver/spleen size. Patient only moved head to respond to any questioning, in and out of sleep, no pain EXAM MEASUREMENTS: Liver Length: 19.8 cm Gallbladder Wall: 0.3 cm CBD: 0.5 cm Spleen: 13.1 cm Right Kidney: 9.5 x 4.7 x 5.0 cm Left Kidney: 10.2 x 4.5 x 4.5 cm overlying bowel gas and inability for patient to wake up and move limits exam Pancreas: limited views appear wnl Liver: difficult to penetrate, intercostal imaging, enlarged Gallbladder: 2.0cm neck stone seen, unable to assess mobility Evidence for sonographic Riley's sign: no CBD: wnl Spleen: enlarged Right Kidney: limited views wnl Left Kidney: limited views wnl Upper IVC: wnl Abd Aorta: wnl The intrahepatic portion of the IVC and proximal abdominal aorta are within normal limits. Common b ile duct is unremarkable. The visualized portions of the pancreas are homogenous. The spleen is unr emarkable. Kidneys are symmetric and free of hydronephrosis. No renal lesions are seen. IMPRESSION: 1. Fatty hepatic infiltration with hepatomegaly. 2. Splenomegaly mild in degree.
[2018-05-03 12:13] LABS: Heparin Induced Plt Abs 0.145 OD (<0.4)
[2018-05-03 12:29] LABS: Glucose,Whole Blood 100 mg/dL (75-99)
--- NOTE | 2018-05-03 15:13 | P.PN ---
Subjective Progress Note Date: 05/03/18 Principal diagnosis: Shortness of breath, fatigue, weakness This is a 57-year-old gentleman who has had multiple recent admissions for fluid volume overload. He has a history of chronic obstructive pulmonary disease, obstructive sleep apnea, chronic hypoxic and hypercapnic respiratory failure, insulin-dependent diabetes mellitus, diabetic peripheral neuropathy, hepatic nephropathy, chronic renal failure with stage III chronic kidney disease with a baseline creatinine of 1.6 1.7, systolic congestive heart failure with previous ejection fraction 40-45% and subsequent ejection fraction 50-55%. He also has a history of severe ischemic cardiomyopathy and is status post AICD placement, coronary artery disease with previous stent placement, hypertension, hyperlipidemia, depression, bipolar disorder, opioid dependence currently on Zubsolv. Previous acute respiratory failure requiring intubation mechanical ventilatory support. Has has chronic and ongoing tobacco dependence. The patient was recently discharged from here on 04/22/2018. The patient has been receiving hemodialysis but his last treatment was 6 days ago. He presented here to the emergency room last evening with complaints of increasing shortness of breath, fatigue and weakness. His chest x-ray showed increasing bilateral lower lobe infiltrates and suspected pneumonia with no overt evidence of heart failure. White count 6.4. Hemoglobin 11.7. Creatinine 8.27. ProBNP 715. Troponin 0.101, 0.097, 0.099. He is seen today in consultation on the selective care unit. He is awake and alert in no acute distress. He currently denies any worsening shortness of breath. He has a loose nonproductive cough. No chills or night sweats. Currently afebrile. Maintaining O2 saturations in the 90s on 3 L/m per nasal cannula. He is hemodynamically stable. He has been initiated on bronchodilators, Symbicort, Rocephin and azithromycin. The patient was seen again today 05/01/2018 in follow-up on the selective care unit. He is currently awake and alert in no acute distress. He denies any worsening shortness breath, cough or congestion. He did receive hemodialysis with 3 L of fluid removed yesterday. He is also receiving hemodialysis today with an additional 2.5 L to be removed. He is maintaining good O2 saturations in the 90s on 4 L/m nasal cannula. He needs increased encouragement to be up out of bed. White count 5.9. Hemoglobin 11.6. Creatinine 5.79. Patient was seen again today 05/02/2018 in follow-up on the selective care unit. He is currently resting comfortably in bed. He arouses to verbal stimuli. He is maintaining good O2 saturations in the mid 90s on 4 L/m per nasal cannula. She's been afebrile. Hemodynamically stable. He is back on a Sunday schedule for his hemodialysis. He is also being worked up for chronic thrombocytopenia. Hematology is on the case. White count 4.9. Hemoglobin 11.5. Platelet count 61,000. Creatinine 4.34. He is continued on DuoNeb inhalations, Symbicort, antibiotics in form of azithromycin. The patient is seen again today 05/03/2018 in follow-up on the selective care unit. He is currently resting quite comfortably in bed. He has no pulmonary complaints. He is currently receiving hemodialysis. He is also being worked up for the thrombocytopenia. Abdominal ultrasound revealed evidence of fatty hepatic infiltration with hepatomegaly. Mild splenomegaly. Objective - Vital Signs Vital signs: Vital Signs Temp 97.6 F 05/03/18 06:39 Pulse 92 05/03/18 11:43 Resp 18 05/03/18 08:53 BP 106/74 05/03/18 06:39 Pulse Ox 91 L 05/03/18 08:53 Intake & Output 05/02/18 05/03/18 05/03/18 18:59 06:59 18:59 Intake Total 658 0 Output Total 1100 Balance 658 -1100 Intake: Oral 658 0 Output: Urine 1100 Other: Voiding Method Urinal Urinal # Voids 1 1 - Exam Gen. appearance, comfortable awake no acute distress. Head exam was generally normal. There was no scleral icterus or corneal arcus. Mucous membranes were moist. Neck was supple and without jugular venous distension, thyromegaly, or carotid bruits. Carotids were easily palpable bilaterally. There was no adenopathy. Lungs sounds are diminished bilaterally along with scattered rhonchi and scattered expiratory wheezes without the lung livingston bilaterally. Cardiac exam revealed the PMI to be normally situated and sized. The rhythm was regular and no extrasystoles were noted during several minutes of auscultation. The first and second heart sounds were normal and physiologic splitting of the second heart sound was noted. There were no murmurs, rubs, clicks, or gallops. Abdominal exam revealed normal bowel sounds. The abdomen was soft, non-tender, and without masses, organomegaly, or appreciable enlargement of the abdominal aorta. Examination of the extremities revealed easily palpable radial, femoral and pedal pulses. There was no cyanosis, clubbing or edema. Examination of the skin revealed no evidence of significant rashes, suspicious appearing nevi or other concerning lesions. Neurologically the patient is awake and alert and there is no focal neurological deficit. - Labs CBC & Chem 7: 05/03/18 08:44 05/03/18 08:44 Labs: Abnormal Lab Results - Last 24 Hours (Table) 05/02/18 05/02/18 05/02/18 Range/Units 06:45 16:32 21:55 Hgb (13.0-17.5) gm/dL Hct (39.0-53.0) % RDW (11.5-15.5) % Plt Count (150-450) k/uL Potassium (3.5-5.1) mmol/L BUN (9-20) mg/dL Creatinine (0.66-1.25) mg/dL POC Glucose (mg/dL) 101 H 119 H (75-99) mg/dL Ammonia (<30) umol/L Lactate Dehydrogenase (313-618) U/L Total Protein (6.3-8.2) g/dL Total Protein (PEP) 4.9 L (6.2-8.2) g/dL Albumin (3.5-5.0) g/dL Free Henning LC, Quant 7.38 H (0.33-1.94) mg/dL Free Lambda LC, Quant 4.26 H (0.57-2.63) mg/dL 05/03/18 05/03/18 05/03/18 Range/Units 08:44 08:44 08:44 Hgb 12.4 L (13.0-17.5) gm/dL Hct 38.9 L (39.0-53.0) % RDW 16.1 H (11.5-15.5) % Plt Count 57 L (150-450) k/uL Potassium 5.3 H (3.5-5.1) mmol/L BUN 30 H (9-20) mg/dL Creatinine 5.23 H* (0.66-1.25) mg/dL POC Glucose (mg/dL) (75-99) mg/dL Ammonia 38 H (<30) umol/L Lactate Dehydrogenase 775 H (313-618) U/L Total Protein 5.5 L (6.3-8.2) g/dL Total Protein (PEP) (6.2-8.2) g/dL Albumin 3.0 L (3.5-5.0) g/dL Free Henning LC, Quant (0.33-1.94) mg/dL Free Lambda LC, Quant (0.57-2.63) mg/dL 05/03/18 Range/Units 12:27 Hgb (13.0-17.5) gm/dL Hct (39.0-53.0) % RDW (11.5-15.5) % Plt Count (150-450) k/uL Potassium (3.5-5.1) mmol/L BUN (9-20) mg/dL Creatinine (0.66-1.25) mg/dL POC Glucose (mg/dL) 100 H (75-99) mg/dL Ammonia (<30) umol/L Lactate Dehydrogenase (313-618) U/L Total Protein (6.3-8.2) g/dL Total Protein (PEP) (6.2-8.2) g/dL Albumin (3.5-5.0) g/dL Free Henning LC, Quant (0.33-1.94) mg/dL Free Lambda LC, Quant (0.57-2.63) mg/dL Microbiology - Last 24 Hours (Table) 04/29/18 18:55 Blood Culture - Preliminary Blood No Growth after 72 hours Assessment and Plan Assessment: Impression: #1 Acute on chronic hypoxic respiratory failure secondary to acute bilateral lower lobe pneumonia, suspect hospital-acquired as well as an acute exacerbation of chronic obstructive pulmonary disease and fluid volume overload secondary to missed dialysis. #2 Acute on chronic hypercapnic respiratory failure secondary to acute exacerbation of chronic obstructive pulmonary disease secondary to pneumonia. #3 Acute on chronic systolic congestive heart failure with previous ejection fraction 40-45% and most recently 50-55%. #4 Severe ischemic cardiomyopathy status post AICD placement. #5 Acute on chronic renal failure, stage III with previous cardiorenal syndrome and acute tubular necrosis. Patient is now on hemodialysis Sunday however had not received dialysis less since last Sunday, 6 days ago. #6 Diabetes mellitus, type II. #7 Coronary artery disease with previous stent placement. #8 Hyperlipidemia. #9 Hypertension. #10 Obstructive sleep apnea. #11 Chronic tobacco dependence. #12 Bipolar disorder. #13 Opioid dependence, currently on Zubsolv #14 Poor overall functional performance based on the above-mentioned multiple comorbidities. Plan: The patient was seen and evaluated by Dr. Haile. He is currently stable from the pulmonary standpoint. We will follow the patient on as-needed basis. I, the cosigning physician, performed a history & physical examination of the patient. Lungs sounds with crackles in the bilateral posterior bases. Maintaining good O2 saturations in the 90s on 4 L/m per nasal cannula. I discussed the assessment and plan of care with my nurse practitioner, Sil Land. I attest to the above consultation as dictated by her.
--- NOTE | 2018-05-03 15:23 | P.PN ---
Subjective Progress Note Date: 05/03/18 Principal diagnosis: Pancytopenia No acute event, patient seen and examined. Objective - Vital Signs Vital signs: Vital Signs Temp 97.6 F 05/03/18 06:39 Pulse 92 05/03/18 11:43 Resp 18 05/03/18 08:53 BP 106/74 05/03/18 06:39 Pulse Ox 91 L 05/03/18 08:53 Intake & Output 05/02/18 05/03/18 05/03/18 18:59 06:59 18:59 Intake Total 658 0 Output Total 1100 Balance 658 -1100 Intake: Oral 658 0 Output: Urine 1100 Other: Voiding Method Urinal Urinal # Voids 1 1 - Exam - Constitutional lethargic, snoring at times, nodded his head and answered a few questions General appearance: no acute distress, obese - EENT Eyes: anicteric sclerae - Neck Neck: no lymphadenopathy - Respiratory Respiratory: bilateral: diminished - Cardiovascular Heart sounds: normal: S1, S2 - Gastrointestinal General gastrointestinal: no absent bowel sounds, no decreased bowel sounds, no distended, no hepatomegaly, no hyperactive bowel sounds, normal bowel sounds, no organomegaly, no rigid, no scaphoid, soft, no splenomegaly, no umbilical hernia, no ventral hernia - Integumentary Integumentary: normal turgor - Neurologic unable to assess - Musculoskeletal unable to assess - Psychiatric unable to assess - Labs CBC & Chem 7: 05/03/18 08:44 05/03/18 08:44 Labs: Abnormal Lab Results - Last 24 Hours (Table) 05/02/18 05/02/18 05/02/18 Range/Units 06:45 16:32 21:55 Hgb (13.0-17.5) gm/dL Hct (39.0-53.0) % RDW (11.5-15.5) % Plt Count (150-450) k/uL Potassium (3.5-5.1) mmol/L BUN (9-20) mg/dL Creatinine (0.66-1.25) mg/dL POC Glucose (mg/dL) 101 H 119 H (75-99) mg/dL Ammonia (<30) umol/L Lactate Dehydrogenase (313-618) U/L Total Protein (6.3-8.2) g/dL Total Protein (PEP) 4.9 L (6.2-8.2) g/dL Albumin (3.5-5.0) g/dL Free Raiford LC, Quant 7.38 H (0.33-1.94) mg/dL Free Lambda LC, Quant 4.26 H (0.57-2.63) mg/dL 05/03/1818 05/03/18 Range/Units 08:44 08:44 08:44 Hgb 12.4 L (13.0-17.5) gm/dL Hct 38.9 L (39.0-53.0) % RDW 16.1 H (11.5-15.5) % Plt Count 57 L (150-450) k/uL Potassium 5.3 H (3.5-5.1) mmol/L BUN 30 H (9-20) mg/dL Creatinine 5.23 H* (0.66-1.25) mg/dL POC Glucose (mg/dL) (75-99) mg/dL Ammonia 38 H (<30) umol/L Lactate Dehydrogenase 775 H (313-618) U/L Total Protein 5.5 L (6.3-8.2) g/dL Total Protein (PEP) (6.2-8.2) g/dL Albumin 3.0 L (3.5-5.0) g/dL Free Raiford LC, Quant (0.33-1.94) mg/dL Free Lambda LC, Quant (0.57-2.63) mg/dL 05/03/18 Range/Units 12:27 Hgb (13.0-17.5) gm/dL Hct (39.0-53.0) % RDW (11.5-15.5) % Plt Count (150-450) k/uL Potassium (3.5-5.1) mmol/L BUN (9-20) mg/dL Creatinine (0.66-1.25) mg/dL POC Glucose (mg/dL) 100 H (75-99) mg/dL Ammonia (<30) umol/L Lactate Dehydrogenase (313-618) U/L Total Protein (6.3-8.2) g/dL Total Protein (PEP) (6.2-8.2) g/dL Albumin (3.5-5.0) g/dL Free Raiford LC, Quant (0.33-1.94) mg/dL Free Lambda LC, Quant (0.57-2.63) mg/dL Microbiology - Last 24 Hours (Table) 04/29/18 18:55 Blood Culture - Preliminary Blood No Growth after 72 hours Assessment and Plan Plan: Assessment and Plan (1) Thrombocytopenia Narrative/Plan: Records reviewed, thrombocytopenia noted as far back as 2014 though not as severe as this visit. - Acute illness and multiple complex medical conditions are likely contributing low platelets. - Hematological work up ordered. Currently platelets are adequate for anticoagulation if needed, close monitoring for bleeding, labs daily. - AC therapy must maintain platlet count greater than 50K, 52 today - Awaiting work-up, still pending - Presence of renal failure, check smear Current Visit: Yes Status: Chronic Priority: Medium Code(s): D69.6 - THROMBOCYTOPENIA, UNSPECIFIED SNOMED Code(s): 473244712
--- NOTE | 2018-05-03 15:24 | P.PN ---
Subjective Progress Note Date: 05/03/18 This is a 57-year-old male patient of Dr. Regalado who presented to the emergency room with increased shortness of breath. Patient presented to the emergency room on Sunday the left AMA. Patient states he has not received dialysis since last Sunday. She has known past medical history of coronary artery disease, chest pain, heart failure, COPD, diabetes mellitus, hyperlipidemia, hypertension , myocardial infarction, pneumonia, renal disease with sleep apnea and AICD. Chest x-ray completed emergency room showing increasing bilateral lower lobe pulmonary infiltrates compared to last exam and consistent with pneumonia. No definitive heart failure. EKG completed emergency room showing normal sinus rhythm and left bundle branch block. Creatinine on admission 7.92 and bun 59. Troponin level 0.101, 0.097 and 0.099. Patient denies chest pain at this time. Patient placed on Rocephin for antibiotic. Dr. Flores per nephrology has been consulted. Patient denies nausea vomiting or diarrhea. On 05/01/2018 patient is currently resting comfortably in bed. Patient does state he feels improved from yesterday. Patient did receive dialysis yesterday and is planning to receive dialysis again today per nephrology. Creatinine 5.79 and bun 37. Patient remains on Zithromax and Rocephin for antibiotic coverage for pneumonia. Patient also receiving 60 mg by mouth Lasix twice a day. Patient denies chest pain or shortness of breath. Denies nausea vomiting or diarrhea. Denies any urinary burning or frequency. On 05/02/2018 patient is currently resting comfortably in bed. Patient is A and O 3. Patient did receive dialysis 2 days in a row 04/30 and 05/01. Plan for patient to receive dialysis tomorrow 05/03. Platelets continuing to trend down. Platelets today 61. Oncology has been consulted. Patient denies chest pain or shortness of breath. Denies nausea vomiting or diarrhea. Denies any urinary burning or frequency 05/03/2018 patient is lethargic this morning. He is arousable. Able to answer a few questions. He did receive Seroquel and trazodone last night likely contributing to his drowsiness. Patient is scheduled for hemodialysis today. Objective - Vital Signs Vital signs: Vital Signs Temp 97.6 F 05/03/18 06:39 Pulse 92 05/03/18 11:43 Resp 18 05/03/18 08:53 BP 106/74 05/03/18 06:39 Pulse Ox 91 L 05/03/18 08:53 Intake & Output 05/02/18 05/03/18 05/03/18 18:59 06:59 18:59 Intake Total 658 0 Output Total 1100 Balance 658 -1100 Intake: Oral 658 0 Output: Urine 1100 Other: Voiding Method Urinal Urinal # Voids 1 1 - Exam Head normocephalic Neck supple Lungs clear to auscultation bilaterally no wheezing or crackles Heart regular rate and rhythm S1-S2, no rub or gallop Abdomen is soft nontender nondistended positive bowel sounds no hepatosplenomegaly Extremities no edema Neuro lethargic. Easily to awake. Answers a few questions but falls back to sleep. - Labs CBC & Chem 7: 05/03/18 08:44 05/03/18 08:44 Labs: Abnormal Lab Results - Last 24 Hours (Table) 05/02/18 05/02/18 05/02/18 Range/Units 06:45 16:32 21:55 Hgb (13.0-17.5) gm/dL Hct (39.0-53.0) % RDW (11.5-15.5) % Plt Count (150-450) k/uL Potassium (3.5-5.1) mmol/L BUN (9-20) mg/dL Creatinine (0.66-1.25) mg/dL POC Glucose (mg/dL) 101 H 119 H (75-99) mg/dL Ammonia (<30) umol/L Lactate Dehydrogenase (313-618) U/L Total Protein (6.3-8.2) g/dL Total Protein (PEP) 4.9 L (6.2-8.2) g/dL Albumin (3.5-5.0) g/dL Free Mcgaffey LC, Quant 7.38 H (0.33-1.94) mg/dL Free Lambda LC, Quant 4.26 H (0.57-2.63) mg/dL 05/03/18 05/03/18 05/03/18 Range/Units 08:44 08:44 08:44 Hgb 12.4 L (13.0-17.5) gm/dL Hct 38.9 L (39.0-53.0) % RDW 16.1 H (11.5-15.5) % Plt Count 57 L (150-450) k/uL Potassium 5.3 H (3.5-5.1) mmol/L BUN 30 H (9-20) mg/dL Creatinine 5.23 H* (0.66-1.25) mg/dL POC Glucose (mg/dL) (75-99) mg/dL Ammonia 38 H (<30) umol/L Lactate Dehydrogenase 775 H (313-618) U/L Total Protein 5.5 L (6.3-8.2) g/dL Total Protein (PEP) (6.2-8.2) g/dL Albumin 3.0 L (3.5-5.0) g/dL Free Mcgaffey LC, Quant (0.33-1.94) mg/dL Free Lambda LC, Quant (0.57-2.63) mg/dL 05/03/18 Range/Units 12:27 Hgb (13.0-17.5) gm/dL Hct (39.0-53.0) % RDW (11.5-15.5) % Plt Count (150-450) k/uL Potassium (3.5-5.1) mmol/L BUN (9-20) mg/dL Creatinine (0.66-1.25) mg/dL POC Glucose (mg/dL) 100 H (75-99) mg/dL Ammonia (<30) umol/L Lactate Dehydrogenase (313-618) U/L Total Protein (6.3-8.2) g/dL Total Protein (PEP) (6.2-8.2) g/dL Albumin (3.5-5.0) g/dL Free Mcgaffey LC, Quant (0.33-1.94) mg/dL Free Lambda LC, Quant (0.57-2.63) mg/dL Microbiology - Last 24 Hours (Table) 04/29/18 18:55 Blood Culture - Preliminary Blood No Growth after 72 hours Assessment and Plan Assessment: 1. Acute on chronic hypoxic respiratory failure secondary to acute bilateral lower lobe pneumonia and fluid overload.. Chest x-ray completed showing increasing bilateral lower lobe pulmonary infiltrates compared to last exam and consistent with pneumonia. patient received Rocephin in emergency room. Blood and sputum cultures have been ordered. patient started on Rocephin and azithromycin. Dr. Winter following for pulmonary services. Chest x-ray completed showing expiratory rotated exam. Findings compatible with left lower lobe pneumonia. Patient maintained on Rocephin and Zithromax. Blood culture currently negative. Awaiting sputum sample. Chest x-ray showing new density in the left perihilar region, pneumonia versus atelectasis 2. Elevated troponin. Troponin level 0.101, 0.097 and 0.099. Cardiology services have been consulted. Per cardiology troponin elevation likely secondary to renal failure. Cardiology services have added baby aspirin, Lipitor and Lopressor. 3. Acute on chronic renal failure stage III. Patient states he missed 2 days of dialysis during last dialysis today Sunday. Dr. Flores per nephrology has been consulted. Normal hemodialysis schedule Sunday. creatinine 7.92 and bun 59. Social work has been consulted to address issue dialysis arrangement ride for further dialysis outpatient. Patient received dialysis on 04/30 and 05/01. Patient scheduled for hemodialysis today 4. History of Coronary artery disease 5. Essential hypertension. Home blood pressure medications have been reordered. per nursing staff blood pressure medication have been held due to episodes of low blood pressures. Blood pressure Parameters set for [facility] 6. Hyperlipidemia. Patient on Lipitor per cardiology 7. Diabetes mellitus type 2. Sliding scale insulin has been ordered 8. Chronic hypoxic respiratory failure. Patient does wear home O2 9. Chronic sleep apnea 10. Severe ischemic cardiomyopathy. Patient does have AICD recent EF 50-55% with acute on chronic systolic dysfunction. Cardiology following 11. Bipolar. Home medications resumed 12.chronic Thrombocytopenia. Patient seen by hematology. Workup in progress. Thrombocytopenia could be related to patient's acute illness. Continue to monitor. 13. Lethargy probably medication induced. Patient does take Seroquel and trazodone in the evening. Pain medications will be discontinued. Patient has not received pain medications and Ativan for a couple of days. Decrease both the Seroquel and trazodone 200 mg daily DVT prophylaxis SCDs. GI prophylaxis Protonix Social work has been consulted for possible ECF placement due to increased weakness and inability to get hemodialysis. I performed an examination of the patient and discussed their management with the physician Pediatric Clinical Dietician. I have reviewed the Physician Pediatric Clinical Dietician's notes and agree with the documented findings and plan of care
[2018-05-03 16:56] LABS: Glucose,Whole Blood 80 mg/dL (75-99)
[2018-05-03] MEDS: cefTRIAXone IN SWFI 1,000 MG/10 ML SYRINGE IVP SCH (17:02)
[2018-05-03 20:31] LABS: Glucose,Whole Blood 131 mg/dL (75-99)
[2018-05-03] MEDS: ATORVASTATIN 40 MG TAB PO SCH (21:18)
[2018-05-03] MEDS: traZODone HCL 100 MG TAB PO SCH (21:19)
[2018-05-03] MEDS: SODIUM CHLORIDE 0.9% 1,000 ML IV SCH (21:21)
[2018-05-03] MEDS: QUEtiapine 100 MG TAB PO SCH (22:21)
[2018-05-04] MEDS: INSULIN ASPART 100 UNIT/ML 1 ML 10 ML VIAL SQ SCH ×4 (07:33→21:34)
[2018-05-04 07:38] LABS: Glucose,Whole Blood 107 mg/dL (75-99)
[2018-05-04] MEDS: ALBUTEROL NEBULIZED 2.5 MG/3 ML INHALATION PRN ×2 (08:13→20:27)
[2018-05-04] MEDS: SYMBICORT 80-4.5 MCG INHALER INHALATION SCH ×2 (08:13→20:27)
[2018-05-04 09:35] LABS: Anisocytosis Slight; Basophils % (A) 1 %; Eosinophils # (A) 0.2 k/uL (0-0.7); Eosinophils % (A) 4 %; HCT 44.1 % (39.0-53.0); HGB 13.4 gm/dL (13.0-17.5); Hypochromasia Marked; Lymphocytes # (A) 1.5 k/uL (1.0-4.8); Lymphocytes % (A) 30 %; MCH 27.6 pg (25.0-35.0); MCHC 30.4 g/dL (31.0-37.0); MCV 90.7 fL (80.0-100.0); Mean Platelet Volume 9.9; Monocytes # (A) 0.3 k/uL (0-1.0); Monocytes % (A) 6 %; Neutrophils # (A) 2.8 k/uL (1.3-7.7); Neutrophils % (A) 56 %; RBC 4.86 m/uL (4.30-5.90); RDW 16.3 % (11.5-15.5)
[2018-05-04 09:36] LABS: Platelet Count 79 k/uL (150-450)
[2018-05-04 09:38] LABS: Albumin 3.4 g/dL (3.5-5.0); Calcium 9.1 mg/dL (8.4-10.2); Potassium 4.9 mmol/L (3.5-5.1); Total Bilirubin 0.5 mg/dL (0.2-1.3); Total Protein 6.1 g/dL (6.3-8.2)
[2018-05-04] MEDS: PANTOPRAZOLE 40 MG TABLET PO SCH (09:51)
[2018-05-04] MEDS: ALLOPURINOL 100 MG TAB PO SCH (09:54)
[2018-05-04] MEDS: AZITHROMYCIN 500 MG TAB PO SCH (09:55)
[2018-05-04] MEDS: ASPIRIN 81 MG PO SCH (09:55)
[2018-05-04] MEDS: ESCITALOPRAM 20 MG TAB PO SCH (09:55)
[2018-05-04] MEDS: FUROSEMIDE 20 MG TAB PO SCH ×2 (09:56→21:34)
[2018-05-04] MEDS: GABAPENTIN 300 MG CAP PO SCH (09:56)
[2018-05-04] MEDS: PREGABALIN 75 MG CAP PO SCH ×2 (09:57→21:34)
[2018-05-04] MEDS: METOPROLOL TARTRATE 25 MG TAB PO SCH ×2 (09:57→21:34)
--- NOTE | 2018-05-04 11:02 | P.PN ---
Subjective Progress Note Date: 05/04/18 Principal diagnosis: This is a 57-year-old male who is seen in follow-up because of recent onset of acute kidney injury and chronic kidney disease resulting in dialysis dependency. He was readmitted with shortness of breath after missing his dialysis for about a week. He says it was because of transportation problems. He was admitted with shortness of breath and pneumonia. He has had 3 dialysis since admission, last dialysis being yesterday. There was no problem during dialysis and 3 L were ultrafiltered without any significant hypotension pressures in the 110 range. He was found to be somewhat lethargic yesterday . Medication readjusted is on multiple psych medications. This morning is somewhat better per nursing staff although he remains mostly in the bed and is able to walk and eat but has a very flat affect and does not speak except for mumbling 1 or 2 words for each question asked. He has a permacath on the right chest. He is being worked up for chronic thrombocytopenia, we will had watch for any TTP-like disease. . Hematology does not feel this is related to any HUS TTP- like syndrome. It is felt that is from hepatosplenomegaly, this was seen on ultrasound. Possibly fatty liver. He remains on nasal cannula oxygen. Past medical history of coronary artery disease, chest pain, heart failure, COPD , diabetes mellitus, hyperlipidemia, hypertension, myocardial infarction It should be noted that he has chronic thrombocytopenia which had not been worked up. Objective - Vital Signs Vital signs: Vital Signs Temp 97.6 F 05/04/18 07:00 Pulse 80 05/04/18 08:28 Resp 18 05/04/18 07:00 BP 119/84 05/04/18 07:00 Pulse Ox 95 05/04/18 07:00 Intake & Output 05/03/18 05/04/18 05/04/18 18:59 06:59 18:59 Intake Total 50 Output Total 1000 Balance -1000 50 Intake: Oral 50 Output: Urine 1000 Other: Voiding Method Urinal # Voids 0 On examination again his sleepy flat affect normal some words and at times very difficult if understand his speech. HEENT exam no JVP neck is supple no facial asymmetry Lungs showed some few coarse crackles and air entry is less than optimal Heart sounds are unremarkable for any murmur rub gallop Abdomen soft nontender Extremity exam was no edema Warm to touch Neurologically sleepy with flat affect but moves all his extremities. No tremors noted and no asterixis - Labs CBC & Chem 7: 05/04/18 08:41 05/04/18 08:41 Labs: Abnormal Lab Results - Last 24 Hours (Table) 05/02/18 05/03/18 05/03/18 Range/Units 06:45 12:27 20:28 MCHC (31.0-37.0) g/dL RDW (11.5-15.5) % Plt Count (150-450) k/uL BUN (9-20) mg/dL Creatinine (0.66-1.25) mg/dL POC Glucose (mg/dL) 100 H 131 H (75-99) mg/dL AST (17-59) U/L Total Protein (6.3-8.2) g/dL Albumin (3.5-5.0) g/dL Free [place] LC, Quant 7.38 H (0.33-1.94) mg/dL Free [place] LC, Quant 4.26 H (0.57-2.63) mg/dL 05/04/18 05/04/18 05/04/18 Range/Units 07:21 08:41 08:41 MCHC 30.4 L (31.0-37.0) g/dL RDW 16.3 H (11.5-15.5) % Plt Count 79 L (150-450) k/uL BUN 26 H (9-20) mg/dL Creatinine 4.96 H (0.66-1.25) mg/dL POC Glucose (mg/dL) 107 H (75-99) mg/dL AST 15 L (17-59) U/L Total Protein 6.1 L (6.3-8.2) g/dL Albumin 3.4 L (3.5-5.0) g/dL Free [place] LC, Quant (0.33-1.94) mg/dL Free [place]ambda LC, Quant (0.57-2.63) mg/dL Microbiology - Last 24 Hours (Table) 05/03/18 20:50 Gram Stain - Preliminary Sputum Sputum Culture - Preliminary 04/29/18 18:55 Blood Culture - Preliminary Blood No Growth after 96 hours Assessment and Plan Assessment: Impression 1. Acute kidney injury with chronic kidney disease resulting in dialysis dependency. Missed dialysis as an outpatient presumably from transport issues and after admission has had 3 dialysis, last dialysis yesterday and is stable. He has a permacath. 3 L were ultrafiltered and blood pressure was in the 110 range 2. Chronic kidney disease with baseline creatinine of 2 dated 04/10/2018. Urinalysis benign. Likely nephrosclerosis, but as noted, atypical HUS needs to be considered because of the low platelet count. 3. New onset of change in mental status with lethargy cause likely from medications as he is on sacral morphine when necessary lorazepam gabapentin and Lexapro. Is also on trazodone. This is slightly improved this morning on 05/04 with adjustment of his medications. 4. chronic thrombocytopenia which had not been worked up. Possibility of HUS was considered but hematology does not feel there is any likelihood. Ultrasound shows hepatosplenomegaly suggestive of fatty infiltration which might explain his thrombocytopenia. 4. Pneumonia, chest x-ray shows new infiltrate in the left hilar area. 5. Ejection fraction is maintained at 55-60% recent echo, ischemic cardiomyopathy. Patient does have AICD recent EF 50-55% with acute on chronic systolic dysfunction. Recommendation 1. Maintain dialysis on Sunday schedule, next dialysis Sunday day after tomorrow 2. Repeat chest x-ray dated 05/02/2018 yesterday shows new infiltrate in the r left basilar lung field.
--- NOTE | 2018-05-04 11:05 | P.PN ---
Subjective Progress Note Date: 05/04/18 Patient remains very sleepy and obtunded. He wakes up to vigorous stimulation, but goes right back to sleep and is unable to provide any history. No obvious bleeding noted. Objective - Vital Signs Vital signs: Vital Signs Temp 97.6 F 05/04/18 07:00 Pulse 80 05/04/18 08:28 Resp 18 05/04/18 07:00 BP 119/84 05/04/18 07:00 Pulse Ox 95 05/04/18 07:00 Intake & Output 05/03/18 05/04/18 05/04/18 18:59 06:59 18:59 Intake Total 50 Output Total 1000 Balance -1000 50 Intake: Oral 50 Output: Urine 1000 Other: Voiding Method Urinal # Voids 0 - Constitutional General appearance: Present: no acute distress - Respiratory Respiratory: bilateral: CTA - Cardiovascular Rhythm: regular Heart sounds: normal: S1, S2 - Gastrointestinal General gastrointestinal: Present: normal bowel sounds, soft - Neurologic Neurologic Comment(s): Very lethargic and sleepy. Moving all extremities equally - Labs CBC & Chem 7: 05/04/18 08:41 05/04/18 08:41 Labs: Abnormal Lab Results - Last 24 Hours (Table) 05/02/18 05/03/18 05/03/18 Range/Units 06:45 12:27 20:28 MCHC (31.0-37.0) g/dL RDW (11.5-15.5) % Plt Count (150-450) k/uL BUN (9-20) mg/dL Creatinine (0.66-1.25) mg/dL POC Glucose (mg/dL) 100 H 131 H (75-99) mg/dL AST (17-59) U/L Total Protein (6.3-8.2) g/dL Albumin (3.5-5.0) g/dL Free [place] LC, Quant 7.38 H (0.33-1.94) mg/dL Free [place]ambda LC, Quant 4.26 H (0.57-2.63) mg/dL 05/04/18 05/04/18 05/04/18 Range/Units 07:21 08:41 08:41 MCHC 30.4 L (31.0-37.0) g/dL RDW 16.3 H (11.5-15.5) % Plt Count 79 L (150-450) k/uL BUN 26 H (9-20) mg/dL Creatinine 4.96 H (0.66-1.25) mg/dL POC Glucose (mg/dL) 107 H (75-99) mg/dL AST 15 L (17-59) U/L Total Protein 6.1 L (6.3-8.2) g/dL Albumin 3.4 L (3.5-5.0) g/dL Free [place] LC, Quant (0.33-1.94) mg/dL Free [place]ambda LC, Quant (0.57-2.63) mg/dL Microbiology - Last 24 Hours (Table) 05/03/18 20:50 Gram Stain - Preliminary Sputum Sputum Culture - Preliminary 04/29/18 18:55 Blood Culture - Preliminary Blood No Growth after 96 hours Assessment and Plan (1) Thrombocytopenia Narrative/Plan: Chronic, with some acute drop. Workup is in progress. B12 and folate are normal. Ultrasound of the abdomen shows enlargement of the liver and spleen, likely due to fatty infiltration. Patient has a known history of diabetes. He is unable to provide any history regarding EtOH use. 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 Plt counts are well within a safe range and have stabilized. Await rest of workup. Continue to monitor Current Visit: Yes Status: Chronic Priority: Medium Code(s): D69.6 - THROMBOCYTOPENIA, UNSPECIFIED SNOMED Code(s): 040235856
[2018-05-04 12:28] LABS: Glucose,Whole Blood 124 mg/dL (75-99)
--- NOTE | 2018-05-04 14:20 | P.PN ---
Subjective This is a 57-year-old male patient of Dr. Regalado who presented to the emergency room with increased shortness of breath. Patient presented to the emergency room on Sunday the left AMA. Patient states he has not received dialysis since last Sunday. She has known past medical history of coronary artery disease, chest pain, heart failure, COPD, diabetes mellitus, hyperlipidemia, hypertension , myocardial infarction, pneumonia, renal disease with sleep apnea and AICD. Chest x-ray completed emergency room showing increasing bilateral lower lobe pulmonary infiltrates compared to last exam and consistent with pneumonia. No definitive heart failure. EKG completed emergency room showing normal sinus rhythm and left bundle branch block. Creatinine on admission 7.92 and bun 59. Troponin level 0.101, 0.097 and 0.099. Patient denies chest pain at this time. Patient placed on Rocephin for antibiotic. Dr. Flores per nephrology has been consulted. Patient denies nausea vomiting or diarrhea. On 05/01/2018 patient is currently resting comfortably in bed. Patient does state he feels improved from yesterday. Patient did receive dialysis yesterday and is planning to receive dialysis again today per nephrology. Creatinine 5.79 and bun 37. Patient remains on Zithromax and Rocephin for antibiotic coverage for pneumonia. Patient also receiving 60 mg by mouth Lasix twice a day. Patient denies chest pain or shortness of breath. Denies nausea vomiting or diarrhea. Denies any urinary burning or frequency. On 05/02/2018 patient is currently resting comfortably in bed. Patient is A and O 3. Patient did receive dialysis 2 days in a row 04/30 and 05/01. Plan for patient to receive dialysis tomorrow 05/03. Platelets continuing to trend down. Platelets today 61. Oncology has been consulted. Patient denies chest pain or shortness of breath. Denies nausea vomiting or diarrhea. Denies any urinary burning or frequency 05/03/2018 patient is lethargic this morning. He is arousable. Able to answer a few questions. He did receive Seroquel and trazodone last night likely contributing to his drowsiness. Patient is scheduled for hemodialysis today. On 05/04/2018 patient is arousable, less somnolent than yesterday, in no apparent distress, he is complaining of cough with sputum production otherwise he denies any complaints there is no fever or chills no headache no dizziness no chest pain no shortness of breath no nausea or vomiting no abdominal pain no diarrhea and no urinary symptoms. Objective - Vital Signs Vital signs: Vital Signs Temp 97.6 F 05/04/18 07:00 Pulse 80 05/04/18 08:28 Resp 18 05/04/18 07:00 BP 119/84 05/04/18 07:00 Pulse Ox 95 05/04/18 07:00 Intake & Output 05/03/18 05/04/18 05/04/18 18:59 06:59 18:59 Intake Total 50 Output Total 1000 Balance -1000 50 Intake: Oral 50 Output: Urine 1000 Other: Voiding Method Urinal Urinal # Voids 0 - Exam Head normocephalic and atraumatic Neck supple no JVD no goiter Lungs clear to auscultation bilaterally no wheezing or crackles Heart regular rate and rhythm S1-S2, no rub or gallop Abdomen is soft nontender nondistended positive bowel sounds no hepatosplenomegaly Extremities no edema no cyanosis or clubbing Neuro lethargic. Easily to awake. Answers a few questions but falls back to sleep. - Labs CBC & Chem 7: 05/04/18 08:41 05/04/18 08:41 Labs: Abnormal Lab Results - Last 24 Hours (Table) 05/03/18 05/04/18 05/04/18 Range/Units 20:28 07:21 08:41 MCHC 30.4 L (31.0-37.0) g/dL RDW 16.3 H (11.5-15.5) % Plt Count 79 L (150-450) k/uL BUN (9-20) mg/dL Creatinine (0.66-1.25) mg/dL POC Glucose (mg/dL) 131 H 107 H (75-99) mg/dL AST (17-59) U/L Total Protein (6.3-8.2) g/dL Albumin (3.5-5.0) g/dL 05/04/18 05/04/18 Range/Units 08:41 12:25 MCHC (31.0-37.0) g/dL RDW (11.5-15.5) % Plt Count (150-450) k/uL BUN 26 H (9-20) mg/dL Creatinine 4.96 H (0.66-1.25) mg/dL POC Glucose (mg/dL) 124 H (75-99) mg/dL AST 15 L (17-59) U/L Total Protein 6.1 L (6.3-8.2) g/dL Albumin 3.4 L (3.5-5.0) g/dL Microbiology - Last 24 Hours (Table) 05/03/18 20:50 Gram Stain - Preliminary Sputum Sputum Culture - Preliminary 04/29/18 18:55 Blood Culture - Preliminary Blood No Growth after 96 hours Assessment and Plan Plan: 1. Acute on chronic hypoxic respiratory failure secondary to acute bilateral lower lobe pneumonia and fluid overload.. Chest x-ray completed showing increasing bilateral lower lobe pulmonary infiltrates compared to last exam and consistent with pneumonia. patient received Rocephin in emergency room. Blood and sputum cultures have been ordered. patient started on Rocephin and azithromycin. Dr. Winter following for pulmonary services. Chest x-ray completed showing expiratory rotated exam. Findings compatible with left lower lobe pneumonia. Patient maintained on Rocephin and Zithromax. Blood culture currently negative. Awaiting sputum sample. Chest x-ray showing new density in the left perihilar region, pneumonia versus atelectasis 2. Elevated troponin. Troponin level 0.101, 0.097 and 0.099. Cardiology services have been consulted. Per cardiology troponin elevation likely secondary to renal failure. Cardiology services have added baby aspirin, Lipitor and Lopressor. 3. Acute on chronic renal failure stage III. Patient states he missed 2 days of dialysis during last dialysis today Sunday. Dr. Flores per nephrology has been consulted. Normal hemodialysis schedule Sunday. creatinine 7.92 and bun 59. Social work has been consulted to address issue dialysis arrangement ride for further dialysis outpatient. Patient received dialysis on 04/30 and 05/01. Patient scheduled for hemodialysis today 4. History of Coronary artery disease 5. Essential hypertension. Home blood pressure medications have been reordered. per nursing staff blood pressure medication have been held due to episodes of low blood pressures. Blood pressure Parameters set for [facility] 6. Hyperlipidemia. Patient on Lipitor per cardiology 7. Diabetes mellitus type 2. Sliding scale insulin has been ordered 8. Chronic hypoxic respiratory failure. Patient does wear home O2 9. Chronic sleep apnea 10. Severe ischemic cardiomyopathy. Patient does have AICD recent EF 50-55% with acute on chronic systolic dysfunction. Cardiology following 11. Bipolar. Home medications resumed 12.chronic Thrombocytopenia. Patient seen by hematology. Workup in progress. Thrombocytopenia could be related to patient's acute illness. Continue to monitor. 13. Lethargy probably medication induced. Patient does take Seroquel and trazodone in the evening. Pain medications will be discontinued. Patient has not received pain medications and Ativan for a couple of days. Dose of Seroquel and trazodone was decreased in half to 100 mg each daily and patient is more alert today. DVT prophylaxis SCDs. GI prophylaxis Protonix Social work has been consulted for possible ECF placement due to increased weakness and inability to get hemodialysis.
[2018-05-04] MEDS: cefTRIAXone IN SWFI 1,000 MG/10 ML SYRINGE IVP SCH (15:50)
[2018-05-04 17:28] LABS: Glucose,Whole Blood 107 mg/dL (75-99)
[2018-05-04 21:03] LABS: Glucose,Whole Blood 181 mg/dL (75-99)
[2018-05-04] MEDS: SODIUM CHLORIDE 0.9% 1,000 ML IV SCH (21:33)
[2018-05-04] MEDS: ATORVASTATIN 40 MG TAB PO SCH (21:33)
[2018-05-04] MEDS: QUEtiapine 100 MG TAB PO SCH (21:34)
[2018-05-04] MEDS: traZODone HCL 100 MG TAB PO SCH (21:34)
[2018-05-05 07:35] LABS: Glucose,Whole Blood 76 mg/dL (75-99)
[2018-05-05] MEDS: SYMBICORT 80-4.5 MCG INHALER INHALATION SCH ×2 (07:35→19:53)
[2018-05-05] MEDS: METOPROLOL TARTRATE 25 MG TAB PO SCH ×3 (09:22→21:44)
[2018-05-05] MEDS: AZITHROMYCIN 500 MG TAB PO SCH (09:22)
[2018-05-05] MEDS: PREGABALIN 75 MG CAP PO SCH ×2 (09:22→21:44)
[2018-05-05] MEDS: FUROSEMIDE 20 MG TAB PO SCH ×3 (09:22→21:44)
[2018-05-05] MEDS: ESCITALOPRAM 20 MG TAB PO SCH (09:22)
[2018-05-05] MEDS: PANTOPRAZOLE 40 MG TABLET PO SCH (09:22)
[2018-05-05] MEDS: GABAPENTIN 300 MG CAP PO SCH (09:22)
[2018-05-05] MEDS: ALLOPURINOL 100 MG TAB PO SCH (09:23)
[2018-05-05] MEDS: INSULIN ASPART 100 UNIT/ML 1 ML 10 ML VIAL SQ SCH ×4 (09:23→21:46)
[2018-05-05] MEDS: ASPIRIN 81 MG PO SCH (09:23)
[2018-05-05 09:40] LABS: Anisocytosis Slight; Basophils % (A) 1 %; Eosinophils # (A) 0.2 k/uL (0-0.7); Eosinophils % (A) 5 %; HCT 40.1 % (39.0-53.0); HGB 12.2 gm/dL (13.0-17.5); Hypochromasia Moderate; Lymphocytes # (A) 1.8 k/uL (1.0-4.8); Lymphocytes % (A) 40 %; MCH 27.3 pg (25.0-35.0); MCHC 30.5 g/dL (31.0-37.0); MCV 89.3 fL (80.0-100.0); Mean Platelet Volume 10.1; Monocytes # (A) 0.3 k/uL (0-1.0); Monocytes % (A) 7 %; Neutrophils % (A) 44 %; RBC 4.49 m/uL (4.30-5.90); RDW 16.2 % (11.5-15.5); WBC 4.5 k/uL (3.8-10.6)
[2018-05-05 09:41] LABS: Platelet Count 92 k/uL (150-450)
[2018-05-05 10:05] LABS: Albumin 2.9 g/dL (3.5-5.0); Calcium 8.8 mg/dL (8.4-10.2); Potassium 5.2 mmol/L (3.5-5.1); Total Bilirubin 0.3 mg/dL (0.2-1.3); Total Protein 5.3 g/dL (6.3-8.2)
--- NOTE | 2018-05-05 11:39 | P.PN ---
Subjective Progress Note Date: 05/05/18 Principal diagnosis: This is a 57-year-old male who is seen in follow-up because of recent onset of acute kidney injury and chronic kidney disease resulting in dialysis dependency. He was readmitted with shortness of breath after missing his dialysis for about a week. He says it was because of transportation problems. He was admitted with shortness of breath and pneumonia. He has had 3 dialysis since admission, last dialysis being day before yesterday. There was no problem during dialysis and 3 L were ultrafiltered without any significant hypotension pressures in the 110 range. He was found to be somewhat lethargic 8 ,018. Medication readjusted is on multiple psych medications. This morning is somewhat better per nursing staff although he remains mostly in the bed and is able to walk and eat but has a very flat affect and does not speak except for mumbling 1 or 2 words for each question asked. He has a permacath on the right chest. He is being worked up for chronic thrombocytopenia, we will had watch for any TTP-like disease. . Hematology does not feel this is related to any HUS TTP- like syndrome. It is felt that is from hepatosplenomegaly, this was seen on ultrasound. Possibly fatty liver. He remains on nasal cannula oxygen. Past medical history of coronary artery disease, chest pain, heart failure, COPD , diabetes mellitus, hyperlipidemia, hypertension, myocardial infarction It should be noted that he has chronic thrombocytopenia which had not been worked up. Objective - Vital Signs Vital signs: Vital Signs Temp 96.7 F L 05/05/18 07:00 Pulse 70 05/05/18 07:00 Resp 16 05/05/18 07:00 BP 114/73 05/05/18 07:00 Pulse Ox 97 05/05/18 07:00 Intake & Output 05/04/18 05/05/18 05/05/18 18:59 06:59 18:59 Intake Total 300 Output Total 500 Balance -200 Intake: Oral 300 Output: Urine 500 Other: Voiding Method Urinal Urinal # Voids 1 0 On examination he remains mostly in bed sleeping. Upon questioning he opens eyes and mumbles 1 or 2 words. Supposedly he is eating fairly well HEENT exam no JVP neck is supple no facial asymmetry Heart sounds are unremarkable for any murmur rub gallop Abdomen soft nontender Lungs are clear to auscultation fair air entry bilaterally. Because of His lack of cooperation is somewhat difficult to make sure though. Extremity exam was no edema Neurologically flat affect - Labs CBC & Chem 7: 05/05/18 08:50 05/05/18 08:50 Labs: Abnormal Lab Results - Last 24 Hours (Table) 05/04/18 05/04/18 05/04/18 Range/Units 12:25 17:26 20:50 Hgb (13.0-17.5) gm/dL MCHC (31.0-37.0) g/dL RDW (11.5-15.5) % Plt Count (150-450) k/uL Potassium (3.5-5.1) mmol/L BUN (9-20) mg/dL Creatinine (0.66-1.25) mg/dL POC Glucose (mg/dL) 124 H 107 H 181 H (75-99) mg/dL AST (17-59) U/L Total Protein (6.3-8.2) g/dL Albumin (3.5-5.0) g/dL 05/05/18 05/05/18 Range/Units 08:50 08:50 Hgb 12.2 L (13.0-17.5) gm/dL MCHC 30.5 L (31.0-37.0) g/dL RDW 16.2 H (11.5-15.5) % Plt Count 92 L (150-450) k/uL Potassium 5.2 H (3.5-5.1) mmol/L BUN 37 H (9-20) mg/dL Creatinine 6.16 H* (0.66-1.25) mg/dL POC Glucose (mg/dL) (75-99) mg/dL AST 14 L (17-59) U/L Total Protein 5.3 L (6.3-8.2) g/dL Albumin 2.9 L (3.5-5.0) g/dL Microbiology - Last 24 Hours (Table) 04/29/18 18:55 Blood Culture - Preliminary Blood No Growth after 120 hours 05/03/18 20:50 Gram Stain - Preliminary Sputum Sputum Culture - Preliminary Assessment and Plan Assessment: Impression 1. Acute kidney injury with chronic kidney disease resulting in dialysis dependency. Missed dialysis as an outpatient presumably from transport issues and after admission has had 3 dialysis, last dialysis day before yesterday yesterday and is stable. He has a permacath. 3 L were ultrafiltered and blood pressure was in the 110 range during dialysis. 2. Chronic kidney disease with baseline creatinine of 2 dated 04/10/2018. Urinalysis benign. Likely nephrosclerosis, but as noted, atypical HUS needs to be considered because of the low platelet count. 3. New onset of change in mental status with lethargy cause likely from medications as he is on sacral morphine when necessary lorazepam gabapentin and Lexapro. Is also on trazodone. This is slightly improved on 05/04/2018 with adjustment of his medications. No changes. 4. chronic thrombocytopenia which had not been worked up. Possibility of HUS was considered but hematology does not feel there is any likelihood. Ultrasound shows hepatosplenomegaly suggestive of fatty infiltration which might explain his thrombocytopenia. 4. Pneumonia, chest x-ray shows new infiltrate in the left hilar area. 5. Ejection fraction is maintained at 55-60% recent echo, ischemic cardiomyopathy. Patient does have AICD recent EF 50-55% with acute on chronic systolic dysfunction. Recommendation 1. Maintain dialysis on Sunday schedule, next dialysis Sunday day after tomorrow 2. Repeat chest x-ray dated 05/02/2018 yesterday shows new infiltrate in the r left basilar lung field.
[2018-05-05 11:59] LABS: Glucose,Whole Blood 92 mg/dL (75-99)
[2018-05-05] MEDS: ALBUTEROL NEBULIZED 2.5 MG/3 ML INHALATION PRN ×2 (16:00→19:53)
--- NOTE | 2018-05-05 16:10 | P.PN ---
Subjective Progress Note Date: 05/05/18 This is a 57-year-old male patient of Dr. Regalado who presented to the emergency room with increased shortness of breath. Patient presented to the emergency room on Sunday the left AMA. Patient states he has not received dialysis since last Sunday. She has known past medical history of coronary artery disease, chest pain, heart failure, COPD, diabetes mellitus, hyperlipidemia, hypertension , myocardial infarction, pneumonia, renal disease with sleep apnea and AICD. Chest x-ray completed emergency room showing increasing bilateral lower lobe pulmonary infiltrates compared to last exam and consistent with pneumonia. No definitive heart failure. EKG completed emergency room showing normal sinus rhythm and left bundle branch block. Creatinine on admission 7.92 and bun 59. Troponin level 0.101, 0.097 and 0.099. Patient denies chest pain at this time. Patient placed on Rocephin for antibiotic. Dr. Flores per nephrology has been consulted. Patient denies nausea vomiting or diarrhea. On 05/01/2018 patient is currently resting comfortably in bed. Patient does state he feels improved from yesterday. Patient did receive dialysis yesterday and is planning to receive dialysis again today per nephrology. Creatinine 5.79 and bun 37. Patient remains on Zithromax and Rocephin for antibiotic coverage for pneumonia. Patient also receiving 60 mg by mouth Lasix twice a day. Patient denies chest pain or shortness of breath. Denies nausea vomiting or diarrhea. Denies any urinary burning or frequency. On 05/02/2018 patient is currently resting comfortably in bed. Patient is A and O 3. Patient did receive dialysis 2 days in a row 04/30 and 05/01. Plan for patient to receive dialysis tomorrow 05/03. Platelets continuing to trend down. Platelets today 61. Oncology has been consulted. Patient denies chest pain or shortness of breath. Denies nausea vomiting or diarrhea. Denies any urinary burning or frequency 05/03/2018 patient is lethargic this morning. He is arousable. Able to answer a few questions. He did receive Seroquel and trazodone last night likely contributing to his drowsiness. Patient is scheduled for hemodialysis today. On 05/04/2018 patient is arousable, less somnolent than yesterday, in no apparent distress, he is complaining of cough with sputum production otherwise he denies any complaints there is no fever or chills no headache no dizziness no chest pain no shortness of breath no nausea or vomiting no abdominal pain no diarrhea and no urinary symptoms. On 05/05/2018 patient was seen and examined on the fourth floor he is alert and awake less somnolent than yesterday, in no apparent distress, he is complaining of cough with sputum production otherwise he denies any complaints there is no fever or chills no headache no dizziness no chest pain no shortness of breath no nausea or vomiting no abdominal pain no diarrhea and no urinary symptoms. Objective - Vital Signs Vital signs: Vital Signs Temp 98.4 F 05/05/18 14:51 Pulse 96 05/05/18 16:02 Resp 16 05/05/18 14:51 BP 114/75 05/05/18 14:51 Pulse Ox 91 L 05/05/18 14:51 Intake & Output 05/04/18 05/05/18 05/05/18 18:59 06:59 18:59 Intake Total 300 520 Output Total 500 500 Balance -200 20 Intake: Oral 300 520 Output: Urine 500 500 Other: Voiding Method Urinal Urinal # Voids 1 0 - Exam Head normocephalic and atraumatic Neck supple no JVD no goiter Lungs clear to auscultation bilaterally no wheezing or crackles Heart regular rate and rhythm S1-S2, no rub or gallop Abdomen is soft nontender nondistended positive bowel sounds no hepatosplenomegaly Extremities no edema no cyanosis or clubbing Neuro lethargic. Easily to awake. Answers a few questions but falls back to sleep. - Labs CBC & Chem 7: 05/05/18 08:50 05/05/18 08:50 Labs: Abnormal Lab Results - Last 24 Hours (Table) 05/04/18 05/04/18 05/05/18 Range/Units 17:26 20:50 08:50 Hgb 12.2 L (13.0-17.5) gm/dL MCHC 30.5 L (31.0-37.0) g/dL RDW 16.2 H (11.5-15.5) % Plt Count 92 L (150-450) k/uL Potassium (3.5-5.1) mmol/L BUN (9-20) mg/dL Creatinine (0.66-1.25) mg/dL POC Glucose (mg/dL) 107 H 181 H (75-99) mg/dL AST (17-59) U/L Total Protein (6.3-8.2) g/dL Albumin (3.5-5.0) g/dL 05/05/18 Range/Units 08:50 Hgb (13.0-17.5) gm/dL MCHC (31.0-37.0) g/dL RDW (11.5-15.5) % Plt Count (150-450) k/uL Potassium 5.2 H (3.5-5.1) mmol/L BUN 37 H (9-20) mg/dL Creatinine 6.16 H* (0.66-1.25) mg/dL POC Glucose (mg/dL) (75-99) mg/dL AST 14 L (17-59) U/L Total Protein 5.3 L (6.3-8.2) g/dL Albumin 2.9 L (3.5-5.0) g/dL Microbiology - Last 24 Hours (Table) 05/03/18 20:50 Gram Stain - Preliminary Sputum Sputum Culture - Preliminary 04/29/18 18:55 Blood Culture - Preliminary Blood No Growth after 120 hours Assessment and Plan Plan: 1. Acute on chronic hypoxic respiratory failure secondary to acute bilateral lower lobe pneumonia and fluid overload.. Chest x-ray completed showing increasing bilateral lower lobe pulmonary infiltrates compared to last exam and consistent with pneumonia. patient received Rocephin in emergency room. Blood and sputum cultures have been ordered. patient started on Rocephin and azithromycin. Dr. Winter following for pulmonary services. Chest x-ray completed showing expiratory rotated exam. Findings compatible with left lower lobe pneumonia. Patient maintained on Rocephin and Zithromax. Blood culture currently negative. Awaiting sputum sample. Chest x-ray showing new density in the left perihilar region, pneumonia versus atelectasis 2. Elevated troponin. Troponin level 0.101, 0.097 and 0.099. Cardiology services have been consulted. Per cardiology troponin elevation likely secondary to renal failure. Cardiology services have added baby aspirin, Lipitor and Lopressor. 3. Acute on chronic renal failure stage III. Patient states he missed 2 days of dialysis during last dialysis today Sunday. Dr. Flores per nephrology has been consulted. Normal hemodialysis schedule Sunday. creatinine 7.92 and bun 59. Social work has been consulted to address issue dialysis arrangement ride for further dialysis outpatient. Patient received dialysis on 04/30 and 05/01. Patient scheduled for hemodialysis today 4. History of Coronary artery disease 5. Essential hypertension. Home blood pressure medications have been reordered. per nursing staff blood pressure medication have been held due to episodes of low blood pressures. Blood pressure Parameters set for [facility] 6. Hyperlipidemia. Patient on Lipitor per cardiology 7. Diabetes mellitus type 2. Sliding scale insulin has been ordered 8. Chronic hypoxic respiratory failure. Patient does wear home O2 9. Chronic sleep apnea 10. Severe ischemic cardiomyopathy. Patient does have AICD recent EF 50-55% with acute on chronic systolic dysfunction. Cardiology following 11. Bipolar. Home medications resumed 12.chronic Thrombocytopenia. Patient seen by hematology. Workup in progress. Thrombocytopenia could be related to patient's acute illness. Continue to monitor. 13. Lethargy probably medication induced. Patient does take Seroquel and trazodone in the evening. Pain medications will be discontinued. Patient has not received pain medications and Ativan for a couple of days. Dose of Seroquel and trazodone was decreased in half to 100 mg each daily and patient is more alert today. DVT prophylaxis SCDs. GI prophylaxis Protonix Social work has been consulted for possible ECF placement due to increased weakness and inability to get hemodialysis.
[2018-05-05 17:39] LABS: Glucose,Whole Blood 110 mg/dL (75-99)
[2018-05-05] MEDS: cefTRIAXone IN SWFI 1,000 MG/10 ML SYRINGE IVP SCH (17:50)
[2018-05-05 20:38] LABS: Glucose,Whole Blood 116 mg/dL (75-99)
[2018-05-05] MEDS: QUEtiapine 100 MG TAB PO SCH ×2 (21:02→21:44)
[2018-05-05] MEDS: traZODone HCL 100 MG TAB PO SCH ×2 (21:02→21:44)
[2018-05-05] MEDS: ATORVASTATIN 40 MG TAB PO SCH ×2 (21:02→21:48)
[2018-05-05] MEDS: SODIUM CHLORIDE 0.9% 1,000 ML IV SCH (21:47)
[2018-05-06 07:08] LABS: Glucose,Whole Blood 106 mg/dL (75-99)
[2018-05-06 08:06] LABS: Anisocytosis Slight; Basophils % (A) 1 %; Eosinophils # (A) 0.3 k/uL (0-0.7); Eosinophils % (A) 7 %; HCT 38.6 % (39.0-53.0); HGB 11.6 gm/dL (13.0-17.5); Hypochromasia Moderate; Lymphocytes # (A) 1.9 k/uL (1.0-4.8); Lymphocytes % (A) 37 %; MCHC 30.1 g/dL (31.0-37.0); MCV 89.8 fL (80.0-100.0); Mean Platelet Volume 10.7; Monocytes # (A) 0.4 k/uL (0-1.0); Monocytes % (A) 8 %; Neutrophils # (A) 2.2 k/uL (1.3-7.7); Neutrophils % (A) 44 %; RDW 16.3 % (11.5-15.5); WBC 5.1 k/uL (3.8-10.6)
[2018-05-06] MEDS: INSULIN ASPART 100 UNIT/ML 1 ML 10 ML VIAL SQ SCH ×4 (08:10→20:46)
[2018-05-06 08:11] LABS: Albumin 2.8 g/dL (3.5-5.0); Calcium 8.5 mg/dL (8.4-10.2); Potassium 4.8 mmol/L (3.5-5.1); Total Bilirubin 0.3 mg/dL (0.2-1.3); Total Protein 5.1 g/dL (6.3-8.2)
[2018-05-06] MEDS: PREGABALIN 75 MG CAP PO SCH ×2 (08:15→20:46)
[2018-05-06] MEDS: GABAPENTIN 300 MG CAP PO SCH (08:16)
[2018-05-06] MEDS: ASPIRIN 81 MG PO SCH (08:16)
[2018-05-06] MEDS: METOPROLOL TARTRATE 25 MG TAB PO SCH ×2 (08:16→20:45)
[2018-05-06] MEDS: ALLOPURINOL 100 MG TAB PO SCH (08:16)
[2018-05-06] MEDS: AZITHROMYCIN 500 MG TAB PO SCH (08:16)
[2018-05-06] MEDS: ESCITALOPRAM 20 MG TAB PO SCH (08:16)
[2018-05-06] MEDS: PANTOPRAZOLE 40 MG TABLET PO SCH (08:16)
[2018-05-06] MEDS: FUROSEMIDE 20 MG TAB PO SCH ×2 (08:17→20:44)
[2018-05-06 08:19] LABS: Platelet Count 99 k/uL (150-450)
[2018-05-06] MEDS: SYMBICORT 80-4.5 MCG INHALER INHALATION SCH ×2 (08:34→20:36)
[2018-05-06 08:50] LABS: Large Platelets Present
--- NOTE | 2018-05-06 10:22 | P.PN ---
Subjective Progress Note Date: 05/06/18 This is a 57-year-old male patient of Dr. Regalado who presented to the emergency room with increased shortness of breath. Patient presented to the emergency room on Sunday the left AMA. Patient states he has not received dialysis since last Sunday. She has known past medical history of coronary artery disease, chest pain, heart failure, COPD, diabetes mellitus, hyperlipidemia, hypertension , myocardial infarction, pneumonia, renal disease with sleep apnea and AICD. Chest x-ray completed emergency room showing increasing bilateral lower lobe pulmonary infiltrates compared to last exam and consistent with pneumonia. No definitive heart failure. EKG completed emergency room showing normal sinus rhythm and left bundle branch block. Creatinine on admission 7.92 and bun 59. Troponin level 0.101, 0.097 and 0.099. Patient denies chest pain at this time. Patient placed on Rocephin for antibiotic. Dr. Flores per nephrology has been consulted. Patient denies nausea vomiting or diarrhea. On 05/01/2018 patient is currently resting comfortably in bed. Patient does state he feels improved from yesterday. Patient did receive dialysis yesterday and is planning to receive dialysis again today per nephrology. Creatinine 5.79 and bun 37. Patient remains on Zithromax and Rocephin for antibiotic coverage for pneumonia. Patient also receiving 60 mg by mouth Lasix twice a day. Patient denies chest pain or shortness of breath. Denies nausea vomiting or diarrhea. Denies any urinary burning or frequency. On 05/02/2018 patient is currently resting comfortably in bed. Patient is A and O 3. Patient did receive dialysis 2 days in a row 04/30 and 05/01. Plan for patient to receive dialysis tomorrow 05/03. Platelets continuing to trend down. Platelets today 61. Oncology has been consulted. Patient denies chest pain or shortness of breath. Denies nausea vomiting or diarrhea. Denies any urinary burning or frequency 05/03/2018 patient is lethargic this morning. He is arousable. Able to answer a few questions. He did receive Seroquel and trazodone last night likely contributing to his drowsiness. Patient is scheduled for hemodialysis today. On 05/04/2018 patient is arousable, less somnolent than yesterday, in no apparent distress, he is complaining of cough with sputum production otherwise he denies any complaints there is no fever or chills no headache no dizziness no chest pain no shortness of breath no nausea or vomiting no abdominal pain no diarrhea and no urinary symptoms. On 05/05/2018 patient was seen and examined on the fourth floor he is alert and awake less somnolent than yesterday, in no apparent distress, he is complaining of cough with sputum production otherwise he denies any complaints there is no fever or chills no headache no dizziness no chest pain no shortness of breath no nausea or vomiting no abdominal pain no diarrhea and no urinary symptoms. On 05/06/2018 patient currently resting comfortably in bed. Patient is sleepy but arousable and answers questions appropriately. Patient is currently receiving hemodialysis. Patient does still have a nonproductive cough. Patient denies chest pain or shortness breath. Denies nausea vomiting or diarrhea denies any urinary burning or frequency. Objective - Vital Signs Vital signs: Vital Signs Temp 98.0 F 05/06/18 06:25 Pulse 70 05/06/18 06:25 Resp 17 05/06/18 06:25 BP 118/81 05/06/18 06:25 Pulse Ox 99 05/06/18 06:25 Intake & Output 05/05/18 05/06/18 05/06/18 18:59 06:59 18:59 Intake Total 520 Output Total 500 450 Balance 20 -450 Intake: Oral 520 Output: Urine 500 450 Other: Voiding Method Urinal # Voids 0 - Exam Head normocephalic Neck supple Lungs bilateral rhonchi Heart regular rate and rhythm S1-S2, no rub or gallop Abdomen is soft nontender nondistended positive bowel sounds no hepatosplenomegaly Extremities no edema Neuro alert and orientated to 3 - Labs CBC & Chem 7: 05/06/18 06:57 05/06/18 06:57 Labs: Abnormal Lab Results - Last 24 Hours (Table) 05/05/18 05/05/18 05/06/18 Range/Units 17:25 20:36 06:57 Hgb 11.6 L (13.0-17.5) gm/dL Hct 38.6 L (39.0-53.0) % MCHC 30.1 L (31.0-37.0) g/dL RDW 16.3 H (11.5-15.5) % Plt Count 99 L (150-450) k/uL BUN (9-20) mg/dL Creatinine (0.66-1.25) mg/dL Glucose (74-99) mg/dL POC Glucose (mg/dL) 110 H 116 H (75-99) mg/dL AST (17-59) U/L Total Protein (6.3-8.2) g/dL Albumin (3.5-5.0) g/dL 05/06/18 05/06/18 Range/Units 06:57 07:03 Hgb (13.0-17.5) gm/dL Hct (39.0-53.0) % MCHC (31.0-37.0) g/dL RDW (11.5-15.5) % Plt Count (150-450) k/uL BUN 44 H (9-20) mg/dL Creatinine 6.64 H* (0.66-1.25) mg/dL Glucose 105 H (74-99) mg/dL POC Glucose (mg/dL) 106 H (75-99) mg/dL AST 14 L (17-59) U/L Total Protein 5.1 L (6.3-8.2) g/dL Albumin 2.8 L (3.5-5.0) g/dL Microbiology - Last 24 Hours (Table) 04/29/18 18:55 Blood Culture - Final Blood No Growth after 144 hours 05/03/18 20:50 Gram Stain - Preliminary Sputum Sputum Culture - Preliminary Assessment and Plan Assessment: 1. Acute on chronic hypoxic respiratory failure secondary to acute bilateral lower lobe pneumonia and fluid overload.. Chest x-ray completed showing increasing bilateral lower lobe pulmonary infiltrates compared to last exam and consistent with pneumonia. patient received Rocephin in emergency room. Blood and sputum cultures have been ordered. patient started on Rocephin and azithromycin. Dr. Winter following for pulmonary services. Chest x-ray completed showing expiratory rotated exam. Findings compatible with left lower lobe pneumonia. Patient maintained on Rocephin and Zithromax. Blood culture currently negative. Awaiting sputum sample. Chest x-ray showing new density in the left perihilar region, pneumonia versus atelectasis. 2. Elevated troponin. Troponin level 0.101, 0.097 and 0.099. Cardiology services have been consulted. Per cardiology troponin elevation likely secondary to renal failure. Cardiology services have added baby aspirin, Lipitor and Lopressor. 3. Acute on chronic renal failure stage III. Patient states he missed 2 days of dialysis during last dialysis today Sunday. Dr. Flores per nephrology has been consulted. Normal hemodialysis schedule Sunday. creatinine 7.92 and bun 59. Social work has been consulted to address issue dialysis arrangement ride for further dialysis outpatient. Patient received dialysis on 04/30 and 05/01. Patient scheduled for hemodialysis today 4. History of Coronary artery disease 5. Essential hypertension. Home blood pressure medications have been reordered. per nursing staff blood pressure medication have been held due to episodes of low blood pressures. Blood pressure Parameters set for [facility] 6. Hyperlipidemia. Patient on Lipitor per cardiology 7. Diabetes mellitus type 2. Sliding scale insulin has been ordered 8. Chronic hypoxic respiratory failure. Patient does wear home O2 9. Chronic sleep apnea 10. Severe ischemic cardiomyopathy. Patient does have AICD recent EF 50-55% with acute on chronic systolic dysfunction. Cardiology following 11. Bipolar. Home medications resumed 12.chronic Thrombocytopenia. Patient seen by hematology. Workup in progress. Thrombocytopenia could be related to patient's acute illness. Continue to monitor. Platelets improving to 99 13. Lethargy probably medication induced. Patient does take Seroquel and trazodone in the evening. Pain medications will be discontinued. Patient has not received pain medications and Ativan for a couple of days. Dose of Seroquel and trazodone was decreased in half to 100 mg each daily and patient is more alert today. DVT prophylaxis SCDs. GI prophylaxis Protonix Social work has been consulted for possible ECF placement due to increased weakness and inability to get hemodialysis. [facility] or [facility] for ECF placement I performed an examination of the patient and discussed their management with the Nurse Practitioner. I have reviewed the Nurse Practitioner's notes and agree with the documented findings and plan of care
[2018-05-06 11:29] LABS: Albumin 2.65 g/dL (3.80-4.90); Gamma Globulin 0.48 g/dL (0.70-1.50)
[2018-05-06 12:37] LABS: Glucose,Whole Blood 93 mg/dL (75-99)
[2018-05-06] MEDS: cefTRIAXone IN SWFI 1,000 MG/10 ML SYRINGE IVP SCH (15:12)
--- NOTE | 2018-05-06 16:39 | P.PN ---
Subjective Progress Note Date: 05/06/18 Principal diagnosis: Pancytopenia No acute event, patient seen and examined. He is more awake this am, receiving diaylsis and answering questions asked Objective - Vital Signs Vital signs: Vital Signs Temp 97.5 F L 05/06/18 14:04 Pulse 72 05/06/18 14:04 Resp 17 05/06/18 14:04 BP 82/58 05/06/18 14:04 Pulse Ox 96 05/06/18 14:04 Intake & Output 05/05/18 05/06/18 05/06/18 18:59 06:59 18:59 Intake Total 520 240 Output Total 500 450 Balance 20 -450 240 Intake: Oral 520 240 Output: Urine 500 450 Other: Voiding Method Urinal # Voids 0 0 # Bowel Movements 0 - Exam - Constitutional lethargic, but more awake than previously encountered, answering questions. General appearance: no acute distress, obese - EENT Eyes: anicteric sclerae - Neck Neck: no lymphadenopathy - Respiratory Respiratory: bilateral: diminished - Cardiovascular Heart sounds: normal: S1, S2 - Gastrointestinal General gastrointestinal: no absent bowel sounds, no decreased bowel sounds, no distended, no hepatomegaly, no hyperactive bowel sounds, normal bowel sounds, no organomegaly, no rigid, no scaphoid, soft, no splenomegaly, no umbilical hernia, no ventral hernia - Integumentary Integumentary: normal turgor - Labs CBC & Chem 7: 05/06/18 06:57 05/06/18 06:57 Labs: Abnormal Lab Results - Last 24 Hours (Table) 05/02/18 05/05/18 05/05/18 Range/Units 06:45 17:25 20:36 Hgb (13.0-17.5) gm/dL Hct (39.0-53.0) % MCHC (31.0-37.0) g/dL RDW (11.5-15.5) % Plt Count (150-450) k/uL BUN (9-20) mg/dL Creatinine (0.66-1.25) mg/dL Glucose (74-99) mg/dL POC Glucose (mg/dL) 110 H 116 H (75-99) mg/dL AST (17-59) U/L Total Protein (6.3-8.2) g/dL Albumin (3.5-5.0) g/dL Albumin (PEP) 2.65 L (3.80-4.90) g/dL Yhyvh-7-Tnegnseuv 0.44 H (0.10-0.40) g/dL Gamma Globulins 0.48 L (0.70-1.50) g/dL 05/06/18 05/06/18 05/06/18 Range/Units 06:57 06:57 07:03 Hgb 11.6 L (13.0-17.5) gm/dL Hct 38.6 L (39.0-53.0) % MCHC 30.1 L (31.0-37.0) g/dL RDW 16.3 H (11.5-15.5) % Plt Count 99 L (150-450) k/uL BUN 44 H (9-20) mg/dL Creatinine 6.64 H* (0.66-1.25) mg/dL Glucose 105 H (74-99) mg/dL POC Glucose (mg/dL) 106 H (75-99) mg/dL AST 14 L (17-59) U/L Total Protein 5.1 L (6.3-8.2) g/dL Albumin 2.8 L (3.5-5.0) g/dL Albumin (PEP) (3.80-4.90) g/dL Bxgiq-2-Sbvovhism (0.10-0.40) g/dL Gamma Globulins (0.70-1.50) g/dL Microbiology - Last 24 Hours (Table) 05/03/18 20:50 Gram Stain - Final Sputum Sputum Culture - Final 04/29/18 18:55 Blood Culture - Final Blood No Growth after 144 hours Assessment and Plan Plan: Assessment and Plan (1) Thrombocytopenia Narrative/Plan: Records reviewed, thrombocytopenia noted as far back as 2014 though not as severe as this visit. - Acute illness and multiple complex medical conditions are likely contributing low platelets. - Hematological work up ordered. Currently platelets are adequate for anticoagulation if needed, close monitoring for bleeding, labs daily. - AC therapy must maintain platlet count greater than 50K, - Platlet Count 99 today, anticoagulation ok Current Visit: Yes Status: Chronic Priority: Medium Code(s): D69.6 - THROMBOCYTOPENIA, UNSPECIFIED SNOMED Code(s): 890108399
[2018-05-06 17:06] LABS: Glucose,Whole Blood 100 mg/dL (75-99)
[2018-05-06] MEDS: ALBUTEROL NEBULIZED 2.5 MG/3 ML INHALATION PRN (20:36)
[2018-05-06] MEDS: ATORVASTATIN 40 MG TAB PO SCH (20:44)
[2018-05-06] MEDS: traZODone HCL 100 MG TAB PO SCH (20:46)
[2018-05-06 20:47] LABS: Glucose,Whole Blood 123 mg/dL (75-99)
--- NOTE | 2018-05-06 21:08 | P.PN ---
Subjective Progress Note Date: 05/06/18 Principal diagnosis: This is a 57-year-old male who is seen in follow-up because of recent onset of acute kidney injury and chronic kidney disease resulting in dialysis dependency. He was readmitted with shortness of breath after missing his dialysis for about a week. He says it was because of transportation problems. He was admitted with shortness of breath and pneumonia. He has had 4 dialysis since admission, on a Sunday schedule now and had his dialysis earlier this morning. He has been lethargic, and not communicating any alcohol all these days but today he is a different man cheerful and talking and answering questions. He says he is feeling well and is eating. His blood pressure is somewhat low. Denies any dizziness or fatigue. He has a permacath on the right chest. He is being worked up for chronic thrombocytopenia, we will had watch for any TTP-like disease. . Hematology does not feel this is related to any HUS TTP- like syndrome. It is felt that is from hepatosplenomegaly, this was seen on ultrasound. Possibly fatty liver. He remains on nasal cannula oxygen. Past medical history of coronary artery disease, chest pain, heart failure, COPD , diabetes mellitus, hyperlipidemia, hypertension, myocardial infarction It should be noted that he has chronic thrombocytopenia which had not been worked up. Objective - Vital Signs Vital signs: Vital Signs Temp. 97.5 F L 05/06/18 14:04 Pulse 92 05/06/18 20:46 Resp 17 05/06/18 14:04 BP 82/58 05/06/18 14:04 Pulse Ox 96 05/06/18 14:04 Intake & Output 05/06/18 05/06/18 05/07/18 06:59 18:59 06:59 Intake Total 240 Output Total 450 Balance -450 240 Intake: Oral 240 Output: Urine 450 Other: Voiding Method Urinal # Voids 0 0 # Bowel Movements 0 On examination awake alert cheerful and completely different today HEENT exam no JVP neck is supple no facial asymmetry Heart sounds are unremarkable for any murmur rub gallop Abdomen soft nontender Lungs are clear to auscultation fair air entry bilaterally. Because of His lack of cooperation is somewhat difficult to make sure though. Extremity exam was no edema Neurologically as mentioned about normal - Labs CBC & Chem 7: 05/06/18 06:57 05/06/18 06:57 Labs: Abnormal Lab Results - Last 24 Hours (Table) 05/02/18 05/06/18 05/06/18 Range/Units 06:45 06:57 06:57 Hgb 11.6 L (13.0-17.5) gm/dL Hct 38.6 L (39.0-53.0) % MCHC 30.1 L (31.0-37.0) g/dL RDW 16.3 H (11.5-15.5) % Plt Count 99 L (150-450) k/uL BUN 44 H (9-20) mg/dL Creatinine 6.64 H* (0.66-1.25) mg/dL Glucose 105 H (74-99) mg/dL POC Glucose (mg/dL) (75-99) mg/dL AST 14 L (17-59) U/L Total Protein 5.1 L (6.3-8.2) g/dL Albumin 2.8 L (3.5-5.0) g/dL Albumin (PEP) 2.65 L (3.80-4.90) g/dL Srukh-3-Hfqaefrtv 0.44 H (0.10-0.40) g/dL Gamma Globulins 0.48 L (0.70-1.50) g/dL 05/06/18 05/06/18 05/06/18 Range/Units 07:03 17:05 20:45 Hgb (13.0-17.5) gm/dL Hct (39.0-53.0) % MCHC (31.0-37.0) g/dL RDW (11.5-15.5) % Plt Count (150-450) k/uL BUN (9-20) mg/dL Creatinine (0.66-1.25) mg/dL Glucose (74-99) mg/dL POC Glucose (mg/dL) 106 H 100 H 123 H (75-99) mg/dL AST (17-59) U/L Total Protein (6.3-8.2) g/dL Albumin (3.5-5.0) g/dL Albumin (PEP) (3.80-4.90) g/dL Ezyic-1-Vpovsmcno (0.10-0.40) g/dL Gamma Globulins (0.70-1.50) g/dL Microbiology - Last 24 Hours (Table) 05/03/18 20:50 Gram Stain - Final Sputum Sputum Culture - Final 04/29/18 18:55 Blood Culture - Final Blood No Growth after 144 hours Assessment and Plan Assessment: Impression 1. Acute kidney injury with chronic kidney disease resulting in dialysis dependency. Missed dialysis as an outpatient presumably from transport issues and after admission has had 4 dialysis, last dialysis today and is stable. He has a permacath. 2. Chronic kidney disease with baseline creatinine of 2 dated 04/10/2018. Urinalysis benign. Likely nephrosclerosis, but as noted, atypical HUS needs to be considered because of the low platelet count.he is back to normal MS today 3. New onset of change in mental status with lethargy cause likely from medications as he is on sacral morphine when necessary lorazepam gabapentin and Lexapro. Is also on trazodone. This is slightly improved on 05/04/2018 with adjustment of his medications. No changes. 4. chronic thrombocytopenia which had not been worked up. Possibility of HUS was considered but hematology does not feel there is any likelihood. Ultrasound shows hepatosplenomegaly suggestive of fatty infiltration which might explain his thrombocytopenia. 4. Pneumonia, chest x-ray shows new infiltrate in the left hilar area. 5. Ejection fraction is maintained at 55-60% recent echo, ischemic cardiomyopathy. Patient does have AICD recent EF 50-55% with acute on chronic systolic dysfunction. Recommendation 1. Maintain dialysis on Sunday schedule, next dialysis Sunday after tomorrow 2. Repeat chest x-ray dated 05/02/2018 yesterday shows new infiltrate in the r left basilar lung field.
[2018-05-07] MEDS: SODIUM CHLORIDE 0.9% 1,000 ML IV SCH (06:09)
[2018-05-07 06:59] LABS: Glucose,Whole Blood 125 mg/dL (75-99)
[2018-05-07] MEDS: INSULIN ASPART 100 UNIT/ML 1 ML 10 ML VIAL SQ SCH ×2 (07:52→12:36)
[2018-05-07 07:53] LABS: Anisocytosis Slight; Basophils % (A) 1 %; Eosinophils # (A) 0.2 k/uL (0-0.7); Eosinophils % (A) 5 %; HCT 40.6 % (39.0-53.0); HGB 12.1 gm/dL (13.0-17.5); Hypochromasia Marked; Lymphocytes # (A) 1.8 k/uL (1.0-4.8); Lymphocytes % (A) 43 %; MCH 27.1 pg (25.0-35.0); MCHC 29.9 g/dL (31.0-37.0); MCV 90.5 fL (80.0-100.0); Mean Platelet Volume 10.1; Monocytes # (A) 0.4 k/uL (0-1.0); Monocytes % (A) 9 %; Neutrophils # (A) 1.7 k/uL (1.3-7.7); Neutrophils % (A) 39 %; Platelet Count 104 k/uL (150-450); RBC 4.48 m/uL (4.30-5.90); RDW 16.4 % (11.5-15.5); WBC 4.3 k/uL (3.8-10.6)
[2018-05-07] MEDS: FUROSEMIDE 20 MG TAB PO SCH (07:55)
[2018-05-07] MEDS: ASPIRIN 81 MG PO SCH (07:55)
[2018-05-07] MEDS: ALLOPURINOL 100 MG TAB PO SCH (07:56)
[2018-05-07] MEDS: METOPROLOL TARTRATE 25 MG TAB PO SCH (07:56)
[2018-05-07] MEDS: AZITHROMYCIN 500 MG TAB PO SCH (07:56)
[2018-05-07] MEDS: PANTOPRAZOLE 40 MG TABLET PO SCH (07:56)
[2018-05-07] MEDS: ESCITALOPRAM 20 MG TAB PO SCH (07:57)
[2018-05-07] MEDS: GABAPENTIN 300 MG CAP PO SCH (07:57)
[2018-05-07] MEDS: PREGABALIN 75 MG CAP PO SCH (07:57)
[2018-05-07 08:22] LABS: Calcium 8.8 mg/dL (8.4-10.2); Potassium 5.2 mmol/L (3.5-5.1); Total Bilirubin 0.4 mg/dL (0.2-1.3); Total Protein 5.4 g/dL (6.3-8.2)
[2018-05-07] MEDS: SYMBICORT 80-4.5 MCG INHALER INHALATION SCH (08:46)
[2018-05-07] MEDS: ALBUTEROL NEBULIZED 2.5 MG/3 ML INHALATION PRN ×2 (11:50→15:49)
[2018-05-07 11:52] LABS: Glucose,Whole Blood 75 mg/dL (75-99)
[2018-05-07 12:03] VITALS: RESP 16
[2018-05-07 14:46] VITALS: BP 117/72; TEMP 97.9
--- NOTE | 2018-05-07 15:33 | P.DS ---
Providers Date of admission: 04/29/18 20:25 Expected date of discharge: 05/07/18 Attending physician: Tess Regalado Consults: 04/29/18 20:25 Consult Physician Stat Consulting Provider: Sushila Flores Consult Reason/Comments: Renal Failure, Dialysis Pt Do you want consulting provider notified?: Yes 04/30/18 12:38 Consult Physician Routine Consulting Provider: [place] Haile Consult Reason/Comments: pneumonia Do you want consulting provider notified?: Yes 04/30/18 12:39 Consult Physician Routine Consulting Provider: Alma Holland Consult Reason/Comments: elevated troponin Do you want consulting provider notified?: Yes 05/02/18 10:07 Consult Physician Routine Consulting Provider: Evans Castrejon Consult Reason/Comments: Thrombocytopenia Do you want consulting provider notified?: Yes Primary care physician: Tess Sabine [facility] Course: Discharge diagnosis 1. Acute on chronic hypoxic respiratory failure secondary to acute bilateral lower lobe pneumonia and fluid overload.. Chest x-ray completed showing increasing bilateral lower lobe pulmonary infiltrates compared to last exam and consistent with pneumonia. patient received Rocephin in emergency room. Blood and sputum cultures have been ordered. patient started on Rocephin and azithromycin. Dr. Winter following for pulmonary services. Chest x-ray completed showing expiratory rotated exam. Findings compatible with left lower lobe pneumonia. Patient maintained on Rocephin and Zithromax. Blood culture currently negative. Awaiting sputum sample. Chest x-ray showing new density in the left perihilar region, pneumonia versus atelectasis. Pulmonary services have signed off. Patient will be discharged home on antibiotic Ceftin. Patient is on 4 L nasal cannula which she wears at home. 2. Elevated troponin. Troponin level 0.101, 0.097 and 0.099. Cardiology services have been consulted. Per cardiology troponin elevation likely secondary to renal failure. Cardiology services have added baby aspirin, Lipitor and Lopressor. 3. Acute on chronic renal failure stage III. Patient states he missed 2 days of dialysis during last dialysis today Sunday. Dr. Flores per nephrology has been consulted. Normal hemodialysis schedule Sunday. creatinine 7.92 and bun 59. Social work has been consulted to address issue dialysis arrangement ride for further dialysis outpatient. Patient received dialysis on 04/30 and 05/01. Patient's hemodialysis schedule Sunday. Educated patient on the importance of making to dialysis. Social work aiding patient in arranging transportation. 4. History of Coronary artery disease 5. Essential hypertension. Home blood pressure medications have been reordered. per nursing staff blood pressure medication have been held due to episodes of low blood pressures. Blood pressure Parameters set for Norvasc. Norvasc has been DC'd per cardiology. 6. Hyperlipidemia. Patient on Lipitor per cardiology 7. Diabetes mellitus type 2. 8. Chronic hypoxic respiratory failure. Patient does wear home O2 9. Chronic sleep apnea 10. Severe ischemic cardiomyopathy. Patient does have AICD recent EF 50-55% with acute on chronic systolic dysfunction. Cardiology following 11. Bipolar. Home medications resumed 12.chronic Thrombocytopenia. Patient seen by hematology. Workup in progress. Thrombocytopenia could be related to patient's acute illness. Continue to monitor. Platelets improving to 104. Per hematology thrombocytopenia likely due to complex medical conditions acute illness. 13. Lethargy probably medication induced. Patient does take Seroquel and trazodone in the evening. Pain medications will be discontinued. Patient has not received pain medications and Ativan for a couple of days. Dose of Seroquel and trazodone was decreased in half to 100 mg each daily and patient is more alert today. Patient will be DC'd home on lower doses Seroquel and trazodone. Patient is much more alert today. Patient is eager to go home Per social work patient is not qualified for ECF placement. Patient's hemodialysis Sunday. Social work aiding patient in arrangement of transportation to dialysis Hospital course This is a 57-year-old male patient of Dr. Regalado who presented to the emergency room with increased shortness of breath. Patient presented to the emergency room on Sunday the left AMA. Patient states he has not received dialysis since last Sunday. She has known past medical history of coronary artery disease, chest pain, heart failure, COPD, diabetes mellitus, hyperlipidemia, hypertension , myocardial infarction, pneumonia, renal disease with sleep apnea and AICD. Chest x-ray completed emergency room showing increasing bilateral lower lobe pulmonary infiltrates compared to last exam and consistent with pneumonia. No definitive heart failure. EKG completed emergency room showing normal sinus rhythm and left bundle branch block. Creatinine on admission 7.92 and bun 59. Troponin level 0.101, 0.097 and 0.099. Patient denies chest pain at this time. Patient placed on Rocephin for antibiotic. Dr. Flores per nephrology has been consulted. Patient denies nausea vomiting or diarrhea. On 05/01/2018 patient is currently resting comfortably in bed. Patient does state he feels improved from yesterday. Patient did receive dialysis yesterday and is planning to receive dialysis again today per nephrology. Creatinine 5.79 and bun 37. Patient remains on Zithromax and Rocephin for antibiotic coverage for pneumonia. Patient also receiving 60 mg by mouth Lasix twice a day. Patient denies chest pain or shortness of breath. Denies nausea vomiting or diarrhea. Denies any urinary burning or frequency. On 05/02/2018 patient is currently resting comfortably in bed. Patient is A and O 3. Patient did receive dialysis 2 days in a row 04/30 and 05/01. Plan for patient to receive dialysis tomorrow 05/03. Platelets continuing to trend down. Platelets today 61. Oncology has been consulted. Patient denies chest pain or shortness of breath. Denies nausea vomiting or diarrhea. Denies any urinary burning or frequency 05/03/2018 patient is lethargic this morning. He is arousable. Able to answer a few questions. He did receive Seroquel and trazodone last night likely contributing to his drowsiness. Patient is scheduled for hemodialysis today. On 05/04/2018 patient is arousable, less somnolent than yesterday, in no apparent distress, he is complaining of cough with sputum production otherwise he denies any complaints there is no fever or chills no headache no dizziness no chest pain no shortness of breath no nausea or vomiting no abdominal pain no diarrhea and no urinary symptoms. On 05/05/2018 patient was seen and examined on the fourth floor he is alert and awake less somnolent than yesterday, in no apparent distress, he is complaining of cough with sputum production otherwise he denies any complaints there is no fever or chills no headache no dizziness no chest pain no shortness of breath no nausea or vomiting no abdominal pain no diarrhea and no urinary symptoms. On 05/06/2018 patient currently resting comfortably in bed. Patient is sleepy but arousable and answers questions appropriately. Patient is currently receiving hemodialysis. Patient does still have a nonproductive cough. Patient denies chest pain or shortness breath. Denies nausea vomiting or diarrhea denies any urinary burning or frequency. On 04/29/2018 patient is currently sitting up in bed eager to go home. Patient is much more awake and talkative today. Patient did receive hemodialysis yesterday. Patient's normal hemodialysis schedule Sunday with Sunday. Educated patient on the importance of making it to dialysis on those days. Patient will be discharged home on lower doses of Seroquel and trazodone. Patient also be discharged home on antibiotic Ceftin. Patient to follow-up with primary care provider closely. I performed an examination of the patient and discussed their management with the Nurse Practitioner. I have reviewed the Nurse Practitioner's notes and agree with the documented findings and plan of care Patient Condition at Discharge: Stable Plan - Discharge Summary Discharge Rx Participant: No New Discharge Prescriptions: New Aspirin 81 mg PO DAILY #30 chew Metoprolol Tartrate [Lopressor] 25 mg PO BID #60 tab QUEtiapine [SEROquel] 100 mg PO HS #30 tab traZODone HCL [Desyrel] 100 mg PO HS #30 tab Cefuroxime Axetil [Ceftin] 500 mg PO BID 5 Days #10 tab Continue Allopurinol [Zyloprim] 100 mg PO DAILY Pregabalin [Lyrica] 75 mg PO BID Fluticasone/Vilanterol [Breo Ellipta 100-25 Mcg Inhaler] 1 puff INHALATION RT -DAILY Albuterol Inhaler [Ventolin Hfa Inhaler] 2 puff INHALATION RT-QID PRN PRN Reason: Shortness Of Breath Pravastatin Sodium [Pravachol] 40 mg PO HS Gabapentin [Neurontin] 300 mg PO DAILY HYDROcodone/APAP 5-325MG [[place] 5-325] 1 tab PO TID PRN PRN Reason: Pain Escitalopram [Lexapro] 20 mg PO DAILY Furosemide [Lasix] 60 mg PO BID #90 tab Discontinued traZODone HCL [Desyrel] 200 mg PO HS amLODIPine [Norvasc] 10 mg PO DAILY QUEtiapine [SEROquel] 200 mg PO HS Buprenorphine HCl/Naloxone HCl [Zubsolv 5.7-1.4 mg Tablet Sl] 1 tab SUBLINGUAL BID PRN PRN Reason: WITHDRAWAL Discharge Medication List Allopurinol [Zyloprim] 100 mg PO DAILY 05/21/17 [History] Albuterol Inhaler [Ventolin Hfa Inhaler] 2 puff INHALATION RT-QID PRN 11/25/17 [ History] Fluticasone/Vilanterol [Breo Ellipta 100-25 Mcg Inhaler] 1 puff INHALATION RT- DAILY 11/25/17 [History] Pregabalin [Lyrica] 75 mg PO BID 11/25/17 [History] Pravastatin Sodium [Pravachol] 40 mg PO HS 01/14/18 [History] Escitalopram [Lexapro] 20 mg PO DAILY 04/09/18 [History] Gabapentin [Neurontin] 300 mg PO DAILY 04/09/18 [History] HYDROcodone/APAP 5-325MG [[place] 5-325] 1 tab PO TID PRN 04/09/18 [History] Furosemide [Lasix] 60 mg PO BID #90 tab 04/22/18 [Rx] Aspirin 81 mg PO DAILY #30 chew 05/07/18 [Rx] Cefuroxime Axetil [Ceftin] 500 mg PO BID 5 Days #10 tab 05/07/18 [Rx] Metoprolol Tartrate [Lopressor] 25 mg PO BID #60 tab 05/07/18 [Rx] QUEtiapine [SEROquel] 100 mg PO HS #30 tab 05/07/18 [Rx] traZODone HCL [Desyrel] 100 mg PO HS #30 tab 05/07/18 [Rx] Follow up Appointment(s)/Referral(s): [facility], [NON-STAFF] - 1-2 Days Tess Regalado MD [Primary Care Provider] - 1-2 days Ming Lerner MD [STAFF PHYSICIAN] - 2 Weeks West Haile MD [STAFF PHYSICIAN] - 1 Week Patient Instructions/Handouts: Heart Failure (DC), Viral Pneumonia (DC), Acute Kidney Injury (DC), Type 2 Diabetes in Adults: New Diagnosis (DC) Activity/Diet/Wound Care/Special Instructions: Patient will have [employer] to take to dialysis Activity as tolerated Diet renal Discharge Disposition: HOME SELF-CARE
--- NOTE | 2018-05-07 15:44 | P.PN ---
Subjective Progress Note Date: 05/07/18 Principal diagnosis: Pancytopenia No acute event, patient seen and examined. He is more awake this am, sitting on side of bed, making jokes, feeling better and asking about how to proceed with diaylsis at [facility] Objective - Vital Signs Vital signs: Vital Signs Temp 97.9 F 05/07/18 14:20 Pulse 74 05/07/18 14:20 Resp 16 05/07/18 14:20 BP 117/72 05/07/18 14:20 Pulse Ox 97 05/07/18 14:20 Intake & Output 05/06/18 05/07/18 05/07/18 18:59 06:59 18:59 Intake Total 240 1200 Output Total 600 Balance 240 -600 1200 Intake: Oral 240 1200 Output: Urine 600 Other: Voiding Method Urinal Urinal # Voids 0 1 # Bowel Movements 0 - Exam - Constitutional Alert and Oriented x3 but more awake than previously encountered, answering questions. General appearance: no acute distress, obese - EENT Eyes: anicteric sclerae - Neck Neck: no lymphadenopathy - Respiratory Respiratory: bilateral: diminished - Cardiovascular Heart sounds: normal: S1, S2 - Gastrointestinal General gastrointestinal: no absent bowel sounds, no decreased bowel sounds, no distended, no hepatomegaly, no hyperactive bowel sounds, normal bowel sounds, no organomegaly, no rigid, no scaphoid, soft, no splenomegaly, no umbilical hernia, no ventral hernia - Integumentary Integumentary: normal turgor - Labs CBC & Chem 7: 05/07/18 07:34 05/07/18 07:34 Labs: Abnormal Lab Results - Last 24 Hours (Table) 05/06/18 05/06/18 05/07/18 Range/Units 17:05 20:45 06:52 Hgb (13.0-17.5) gm/dL MCHC (31.0-37.0) g/dL RDW (11.5-15.5) % Plt Count (150-450) k/uL Potassium (3.5-5.1) mmol/L BUN (9-20) mg/dL Creatinine (0.66-1.25) mg/dL POC Glucose (mg/dL) 100 H 123 H 125 H (75-99) mg/dL Total Protein (6.3-8.2) g/dL Albumin (3.5-5.0) g/dL 05/07/18 05/07/18 Range/Units 07:34 07:34 Hgb 12.1 L (13.0-17.5) gm/dL MCHC 29.9 L (31.0-37.0) g/dL RDW 16.4 H (11.5-15.5) % Plt Count 104 L (150-450) k/uL Potassium 5.2 H (3.5-5.1) mmol/L BUN 36 H (9-20) mg/dL Creatinine 5.62 H* (0.66-1.25) mg/dL POC Glucose (mg/dL) (75-99) mg/dL Total Protein 5.4 L (6.3-8.2) g/dL Albumin 3.0 L (3.5-5.0) g/dL Assessment and Plan Plan: Assessment and Plan (1) Thrombocytopenia Narrative/Plan: Records reviewed, thrombocytopenia noted as far back as 2014 though not as severe as this visit. - Acute illness and multiple complex medical conditions are likely contributing low platelets. - Hematological work up ordered. Currently platelets are adequate for anticoagulation if needed, close monitoring for bleeding, labs daily. - AC therapy must maintain platlet count greater than 50K, - Platlet Count 107 today, anticoagulation ok Current Visit: Yes Status: Chronic Priority: Medium Code(s): D69.6 - THROMBOCYTOPENIA, UNSPECIFIED SNOMED Code(s): 320676063 Ok for discharge from Hematological standpoint.
[2018-05-07 16:02] VITALS: PULSE 76
[2018-05-07] MEDS: cefTRIAXone IN SWFI 1,000 MG/10 ML SYRINGE IVP SCH (16:09)
== END 2018-05-07 16:12 | disposition home health service (06) | DRG 193 ==
LOC: EC 17:39 → 6SEL 20:25 → 4MS4W 05-02 21:11
PROVIDERS: ADMIT Internal Medicine; ATTEND Internal Medicine
PROC: 5A1D70Z Performance of Urinary Filtration, Intermittent, Less than 6 Hours Per Day (ICD-10-PCS; principal; 2018-04-30)
DX: J18.9 Pneumonia, unspecified organism (principal); J96.21 Acute and chronic respiratory failure with hypoxia; J96.22 Acute and chronic respiratory failure with hypercapnia; F11.20 Opioid dependence, uncomplicated; I13.2 Hypertensive heart and chronic kidney disease with heart failure and with stage 5 chronic kidney disease, or end stage renal disease; J44.0 Chronic obstructive pulmonary disease with (acute) lower respiratory infection; J44.1 Chronic obstructive pulmonary disease with (acute) exacerbation; N17.9 Acute kidney failure, unspecified; E66.9 Obesity, unspecified; D63.1 Anemia in chronic kidney disease; D69.59 Other secondary thrombocytopenia; E11.22 Type 2 diabetes mellitus with diabetic chronic kidney disease; E11.42 Type 2 diabetes mellitus with diabetic polyneuropathy; E78.5 Hyperlipidemia, unspecified; F17.210 Nicotine dependence, cigarettes, uncomplicated; G47.33 Obstructive sleep apnea (adult) (pediatric); I25.10 Atherosclerotic heart disease of native coronary artery without angina pectoris; I25.2 Old myocardial infarction; I25.5 Ischemic cardiomyopathy; I44.7 Left bundle-branch block, unspecified; K76.0 Fatty (change of) liver, not elsewhere classified; N18.3 Chronic kidney disease, stage 3 (moderate); R77.9 Abnormality of plasma protein, unspecified; R16.2 Hepatomegaly with splenomegaly, not elsewhere classified; F32.9 Major depressive disorder, single episode, unspecified; R53.83 Other fatigue; T50.905A Adverse effect of unspecified drugs, medicaments and biological substances, initial encounter; Z68.32 Body mass index [BMI] 32.0-32.9, adult; Z79.899 Other long term (current) drug therapy; Z99.81 Dependence on supplemental oxygen; Z99.2 Dependence on renal dialysis; Z95.810 Presence of automatic (implantable) cardiac defibrillator; Z95.5 Presence of coronary angioplasty implant and graft; Z91.19 Patient's noncompliance with other medical treatment and regimen; Z91.15 Patient's noncompliance with renal dialysis; Z88.0 Allergy status to penicillin; Z87.01 Personal history of pneumonia (recurrent); Z80.9 Family history of malignant neoplasm, unspecified; Z82.49 Family history of ischemic heart disease and other diseases of the circulatory system; Y92.239 Unspecified place in hospital as the place of occurrence of the external cause
CPT/HCPCS: 36415; 71045; 71046; 76700; 80048; 80053; 81003; 82140; 82550; 82553; 82607; 82747; 83615; 83735; 83880; 83883; 84165; 84484; 85025; 85027; 85610; 85730; 86022; 86038; 86334; 86431; 87040; 87070; 87205; 90935; 93005; 94640; 94760; 96361; 96374; 99285